=== PATIENT | female | born 1950 ===

== ENCOUNTER 2019-12-21 20:07 | Emergency (ER) | payer MEDICARE, MEDICAID, SELFPAY ==
[2019-12-21 20:47] VITALS: BP 136/60; PULSE 66; RESP 16; TEMP 36.3; O2SAT 100; BMI 30.9
[2019-12-21 21:11] LABS: Glucose Urine UA >=1000 MG/DL (NEG); Leukocyte Esterase Urine 2+ (NEG); Nitrite Urine NEG (NEG); Urine Blood 3+ (NEG); Urine Ketones NEG (NEG); Urine Protein 1+ MG/DL (NEG-TRACE)
[2019-12-21 21:12] LABS: Appearance Urine CLOUDY; Color Urine YELLOW
[2019-12-21 21:38] LABS: RBC Urine 50-75 /HPF (0)
[2019-12-21 21:39] LABS: Bacteria Urine TRACE /LPF
[2019-12-21 23:08] LABS: Basophils Percent Auto 0.5 % (0-2); Eosinophils Absolute Auto 0.1 X10*3/uL (0.0-0.4); Eosinophils Percent Auto 1.2 % (0-4); Hematocrit 31.5 % (37-47); Hemoglobin 10.2 g/dl (12.0-16.0); Imm Gran Abs Auto 0.02 X10*3/uL (0.00-0.03); Imm Gran Pct Auto 0.2 % (0.0-0.4); Lymphocytes Absolute Auto 1.5 X10*3/uL (1.2-4.9); MANUAL DIFF FLAG NO; Mean Corpuscular HGB Conc 32.4 g/dl (31.0-35.0); Mean Corpuscular Hemoglobin 29.4 pg (27.0-33.0); Mean Corpuscular Volume 90.8 fL (80-98); Mean Platelet Volume 9.2 fL (9.4-12.3); Monocytes Absolute Auto 0.6 X10*3/uL (0.1-1.2); Monocytes Percent Auto 6.9 % (2-11); Neutrophils Absolute Auto 5.9 X10*3/uL (2.0-8.3); Neutrophils Percent Auto 72.2 % (45-73); Platelet Count 330 X10*3/uL (160-400); Red Blood Count 3.47 X10*6/uL (4.20-5.50); Red Cell Distribution Width 14.1 % (11.0-16.0); White Blood Count 8.1 X10*3/uL (4.8-10.8)
--- NOTE | 2019-12-21 23:42 | ED_ITS ---
HPI - Female Genitourinary General Chief complaint: Urogenital-Female Stated complaint: VAGINAL BURNING Time Seen by Provider: 12/21/19 23:08 History of Present Illness HPI Narrative: Patient is a 69-year-old female presents today with having increasing pain on urination over the last 3-5 days. Patient denies any fever or chills. No abdominal pain. No nausea no vomiting. No coughing or congestion or upper respiratory symptoms. No diaphoresis. No chest pain. No changes in medication. Patient is from home. No vaginal discharge Related Data Previous Rx's Medication Instructions Recorded clotrimazole 1 % vaginal cream 1 appful VAGINAL BEDTIME 7 Days 12/15/19 #45 g nitrofurantoin monohyd/m-cryst 100 mg PO Q12H 7 Days #14 cap 12/21/19 [Macrobid] Allergies Allergy/AdvReac Type Severity Reaction Status Date / Time aspirin [ASPIRIN] Allergy Severe SWELLING, Verified 12/21/19 20:52 swelling, rash fish derived [FISH] Allergy Mild RASH Verified 12/21/19 20:52 fish Allergy Unknown swelling Verified 12/21/19 20:52 penicillin V Allergy Unknown swelling, Verified 12/21/19 20:52 rash Penicillins [PENICILLINS] Allergy Unknown SWELLING Verified 12/21/19 20:52 Review of Systems Review of Systems: Constitutional: No Weight loss, No Fever, No Chills, No Ni ght Sweats, No Fatigue, No Malaise ENT/Mouth: No Hearing loss, No Ear Pain, No Nasal Congestion, No Sinus Pain, No Hoarseness, No sore throat, No Rhinorrhea, No Swallowing Difficulty Eyes: No Eye Pain, No Swelling, No Redness, No Foreign Body, No Discharge, No Vision Changes Cardiovascular: No Chest Pain, No SOB, No Dyspnea on Exertion, No Orthopnea, No Edema, No Palpitations Respiratory: No Cough, No Sputum, No Wheezing, No Smoke Exposure, No Dyspnea Gastrointestinal: No Nausea, No Vomiting, No Diarrhea, No Constipation, No abdominal Pain, No Hematochezia, No Melena Genitourinary: no irregular bleeding, No Dysuria, No Urinary Frequency, No Hematuria, No Urinary Incontinence, No Urgency, No Flank Pain, No Urinary Flow Changes, No Hesitancy. positive pain on urination Musculoskeletal: No joint pain, No Myalgias, No Joint Swelling Skin: No Skin Lesions, No rash Neuro: No Weakness, No Numbness, No Paresthesias, No Loss of Consciousness, No Dizziness, No Headache Psych: No Anxiety/Panic, No Depression, No SI/HI/AH/VH, No Social Issues, Heme/Lymph: No Bruising, No Bleeding,No Lymphadenopathy Endocrine: No Polyuria, No Polydipsia, No Temperature Intolerance [facility] Past Medical History Attestation statement: The following information was validated with the patient. Medical History Diabetes Yeast infection involving the vagina and surrounding area Social History Social History Advance Directives: No Advance Directives Information Provided: No Physical Exam Vital Signs: Vital Signs: Vital Signs Temp Pulse Resp BP Pulse Ox 12/21/19 20:47 97.4 F 66 16 136/60 100 Body Mass Index 30.9 Appearance: Alert. Oriented X3. No acute distress. Eyes: Pupils equal, round and reactive to light. ENT: Pharynx normal. Neck: Normal inspection. Neck supple. No lymph nodes noted. No crepitus CVS: Normal heart rate and rhythm. Pulses normal. Normal S1 and S2 Respiratory: No respiratory distress. Breath sounds normal. No Wheezing. No rales Abdomen: Soft and nontender. No rigidity. No distention. good BS x4 Skin: Skin warm and dry. Normal skin color. Normal skin turgor. Extremities: No lower extremity edema. Neurovascular intact to all extremities. No Lacerations. No Rash Neuro: Oriented X 3. No motor deficit. No sensory deficit. Moving all extermities. No slurred speech MDM - Female Genitourinary Lab Data Result diagrams: 12/21/19 23:03 12/21/19 23:03 Labs: Lab Results 12/21/19 12/21/19 12/21/19 Range/Units 21:03 23:03 23:03 WBC 8.1 (4.8-10.8) X10*3/uL RBC 3.47 L (4.20-5.50) X10*6/uL Hgb 10.2 L (12.0-16.0) g/dl Hct 31.5 L (37-47) % MCV 90.8 (80-98) fL MCH 29.4 (27.0-33.0) pg MCHC 32.4 (31.0-35.0) g/dl RDW 14.1 (11.0-16.0) % Plt Count 330 (160-400) X10*3/uL MPV 9.2 L (9.4-12.3) fL Immature Gran % (Auto) 0.2 (0.0-0.4) % Neut % (Auto) 72.2 (45-73) % Lymph % (Auto) 19.0 L (20-40) % [place] % (Auto) 6.9 (2-11) % Eos % (Auto) 1.2 (0-4) % Baso % (Auto) 0.5 (0-2) % Lymph # (Auto) 1.5 (1.2-4.9) X10*3/uL [place] # (Auto) 0.6 (0.1-1.2) X10*3/uL Eos # (Auto) 0.1 (0.0-0.4) X10*3/uL Baso # (Auto) 0.0 (0.0-0.2) X10*3/uL Abs Immat Gran (auto) 0.02 (0.00-0.03) X10*3/uL Absolute Neuts (auto) 5.9 (2.0-8.3) X10*3/uL Absolute Nucleated RBC 0.000 (0.0-0.012) X10*3/uL Nucleated RBC % (auto) 0.0 (0.0-0.2) /100WBC Hold Blue Top SEE NOTE Sodium (135-145) mmol/L Potassium (3.3-5.1) mmol/l Chloride (96-108) mmol/L Carbon Dioxide (22-29) mmol/L Anion Gap (12-20) BUN (9-16) mg/dL Creatinine (0.5-1.4) mg/dL Estim Creat Clear Calc Estimated GFR Random Glucose (60-115) mg/dL Calcium (8.4-10.2) mg/dL Total Bilirubin (0.0-1.0) mg/dL AST (5-31) U/L ALT (0-31) U/L Alkaline Phosphatase (39-117) U/L Total Protein (6.5-8.0) g/dL Albumin (3.5-5.0) g/dL Urine Color YELLOW Urine Appearance CLOUDY Urine pH 6.0 (5.0-8.0) Ur Specific [place] 1.010 (1.005-1.025) Urine Protein 1+ H (NEG-TRACE) MG/DL Urine Glucose (UA) >=1000 H (NEG) MG/DL Urine Ketones NEG (NEG) MG/DL Urine Blood 3+ H (NEG) Urine Nitrite NEG (NEG) Ur Leukocyte Esterase 2+ H (NEG) Urine RBC 50-75 H (0) /HPF Urine WBC 15-29 H (0-4) /HPF Ur Squamous Epith Cells NONE /LPF Urine Bacteria TRACE /LPF 12/21/19 Range/Units 23:03 WBC (4.8-10.8) X10*3/uL RBC (4.20-5.50) X10*6/uL Hgb (12.0-16.0) g/dl Hct (37-47) % MCV (80-98) fL MCH (27.0-33.0) pg MCHC (31.0-35.0) g/dl RDW (11.0-16.0) % Plt Count (160-400) X10*3/uL MPV (9.4-12.3) fL Immature Gran % (Auto) (0.0-0.4) % Neut % (Auto) (45-73) % Lymph % (Auto) (20-40) % [place] % (Auto) (2-11) % Eos % (Auto) (0-4) % Baso % (Auto) (0-2) % Lymph # (Auto) (1.2-4.9) X10*3/uL [place] # (Auto) (0.1-1.2) X10*3/uL Eos # (Auto) (0.0-0.4) X10*3/uL Baso # (Auto) (0.0-0.2) X10*3/uL Abs Immat Gran (auto) (0.00-0.03) X10*3/uL Absolute Neuts (auto) (2.0-8.3) X10*3/uL Absolute Nucleated RBC (0.0-0.012) X10*3/uL Nucleated RBC % (auto) (0.0-0.2) /100WBC Hold Blue Top Sodium 132 L (135-145) mmol/L Potassium 5.2 H (3.3-5.1) mmol/l Chloride 103 (96-108) mmol/L Carbon Dioxide 21 L (22-29) mmol/L Anion Gap 13 (12-20) BUN 29 H (9-16) mg/dL Creatinine 1.41 H (0.5-1.4) mg/dL Estim Creat Clear Calc 32.7 Estimated GFR 37 Random Glucose 310 H (60-115) mg/dL Calcium 9.2 (8.4-10.2) mg/dL Total Bilirubin 0.3 (0.0-1.0) mg/dL AST 38 H (5-31) U/L ALT 42 H (0-31) U/L Alkaline Phosphatase 176 H (39-117) U/L Total Protein 7.8 (6.5-8.0) g/dL Albumin 4.0 (3.5-5.0) g/dL Urine Color Urine Appearance Urine pH (5.0-8.0) Ur Specific [place] (1.005-1.025) Urine Protein (NEG-TRACE) MG/DL Urine Glucose (UA) (NEG) MG/DL Urine Ketones (NEG) MG/DL Urine Blood (NEG) Urine Nitrite (NEG) Ur Leukocyte Esterase (NEG) Urine RBC (0) /HPF Urine WBC (0-4) /HPF Ur Squamous Epith Cells /LPF Urine Bacteria /LPF Discharge Plan Discharge Clinical Impression: Urinary tract infection Patient Disposition: Home, Self-Care Prescriptions: New nitrofurantoin monohyd/m-cryst [Macrobid] 100 mg capsule 100 mg PO Q12H 7 Days Qty: 14 RF: 0 No Action clotrimazole [Gyne-Lotrimin 7] 1 % cream 1 appful vaginal BEDTIME 7 Days Qty: 45 RF: 1 Referrals: Kimi Patino MD [Primary Care Provider] - 2 days Print Language: Serbian
[2019-12-21 23:47] LABS: Alanine Aminotransferase 42 U/L (0-31); Alkaline Phosphatase 176 U/L (39-117); Anion Gap 13 (12-20); Aspartate Amino Transferase 38 U/L (5-31); Bilirubin Total 0.3 mg/dL (0.0-1.0); Blood Urea Nitrogen 29 mg/dL (9-16); Calcium 9.2 mg/dL (8.4-10.2); Carbon Dioxide 21 mmol/L (22-29); Chloride 103 mmol/L (96-108); Creatinine Clr Calc Pharmacy 32.7; Estimated Glomerular Filt Rate 37; Glucose Random 310 mg/dL (60-115); Potassium 5.2 mmol/l (3.3-5.1); Sodium 132 mmol/L (135-145); Total Protein 7.8 g/dL (6.5-8.0)
[2019-12-22] MEDS: Nitrofurantoin Monohyd/M-Cryst 100 MG CAPSULE PO (00:14)
[2019-12-22 00:16] VITALS: BP 135/36; PULSE 77; RESP 18; TEMP 36.7; O2SAT 100
== END 2019-12-22 00:21 | disposition home or self-care (01) ==
PROVIDERS: Emergency Provider Emergency Medicine Emergency Medical Services; PCP Internal Medicine
DX: N39.0 Urinary tract infection, site not specified (principal); E11.9 Type 2 diabetes mellitus without complications
CPT/HCPCS: 36415; 80053; 81001; 85025; 87086; 99283; 99284

== ENCOUNTER → 2020-01-21 14:44 | Outpatient (BNVA) | payer MEDICARE, MEDICAID, SELFPAY | PROVIDERS: PCP Internal Medicine; Referring Provider Internal Medicine; Visit Provider Urology | DX: N39.0 Urinary tract infection, site not specified (principal); R39.14 Feeling of incomplete bladder emptying | CPT/HCPCS: Q3014 ==

== ENCOUNTER 2020-02-04 10:38 | Emergency (ER) | payer MEDICARE, MEDICAID, SELFPAY ==
[2020-02-04 11:41] VITALS: BP 143/68; PULSE 120; RESP 18; TEMP 37.4; O2SAT 97; BMI 29.2
--- NOTE | 2020-02-04 11:56 | ECG_ITS ---
Test Reason : SEPSIS Blood Pressure : / mmHG Vent. Rate : 114 BPM Atrial Rate : 114 BPM P-R Int : 156 ms QRS Dur : 072 ms QT Int : 306 ms P-R-T Axes : 023 019 031 degrees QTc Int : 421 ms Sinus tachycardia Cannot rule out Anterior infarct (cited on or before 20-APR-2017) Abnormal ECG When compared with ECG of 10-SEP-2019 12:08, Criteria for Inferior infarct are no longer Present Referred By: Klarissa Greene Electronically Signed By:LUC GARCIA MD
--- NOTE | 2020-02-04 11:57 | XR_ITS ---
EXAMINATION: XR CHEST CLINICAL INFORMATION: Fever. COMPARISON: Chest 09/10/2019 TECHNIQUE: Frontal view of the chest was obtained. FINDINGS: The lungs are hyperexpanded but clear of acute process. The heart size and pulmonary vascularity is normal. No gross bony abnormality seen. XR/XR chest 1V IMPRESSION: Unremarkable chest exam.
--- NOTE | 2020-02-04 12:44 | ED_ITS ---
HPI - General Adult General Chief complaint: General Medical <SANJANA Enriquez - Last Filed: 02/04/20 17:18> Stated complaint: CHILLS,FEVER,BODYACHES <SANJANA Enriquez - Last Filed: 02/04/20 17:18> Time Seen by Provider: 02/04/20 10:59 <SANJANA Enriquez - Last Filed: 02/04/20 17:18> Source: patient and family <SANJANA Enriquez Last Filed: 02/04/20 17:18> Mode of arrival: ambulatory <SANJANA Enriquez - Last Filed: 02/04/20 17:18> History of Present Illness HPI narrative: 69-year-old female with a past medical history of CVA on Plavix, diabetes, vitamin-B deficiency, HTN, hyperlipidemia, hypothyroid, renal tubular acidosis, brought to ED by daughter for fever, increased confusion, and urinary frequency since yesterday. Daughter reports similar symptoms in the past with UTIs. Denies recent falls/head trauma. Patient reports mild headache, otherwise has no complaints. Denies CP/SOB, abdominal pain, nausea/vomiting, exposure to COVID-19, cough <SANJANA Enriquez Last Filed: 02/04/20 17:18> Onset (ago): day(s) <SANJANA Enriquez Last Filed: 02/04/20 17:18> Related Data Home medications: Home Medications Medication Instructions Recorded Confirmed atorvastatin 40 mg tablet 40 mg PO DAILY 01/13/20 02/22/20 dulaglutide 0.75 mg/0.5 mL 0.75 mg SUBCUT QWEEK 01/13/20 02/22/20 subcutaneous pen injector famotidine 20 mg tablet 20 mg PO BEDTIME 01/13/20 02/22/20 furosemide 20 mg tablet 10 mg PO DAILY tab 01/13/20 02/22/20 insulin aspart U-100 100 unit/mL 15 unit SUBCUT TID 01/13/20 02/22/20 (3 mL) subcutaneous pen insulin degludec 100 unit/mL (3 30 unit SUBCUT DAILY ml 01/13/20 02/22/20 mL) subcutaneous pen levothyroxine 100 mcg tablet 100 mcg PO DAILY 01/13/20 02/22/20 metoprolol succinate 25 mg 12.5 mg PO BID 01/13/20 02/22/20 tablet,extended release 24 hr insulin asp prt-insulin aspart 70 unit SUBCUT TIDAC 02/05/20 02/22/20 [Novolog Mix 70-30FlexPen U-100] Previous Rx's Medication Instructions Recorded clotrimazole 1 % vaginal cream 1 appful VAGINAL BEDTIME 7 Days 12/15/19 #45 g pen needle, diabetic 32 gauge x #60 ea 12/27/19 omeprazole 20 mg capsule,delayed 20 mg PO QAM #90 cap 01/10/20 release clopidogrel 75 mg tablet 75 mg PO DAILY 90 Days #90 tab 01/11/20 cholecalciferol (vitamin D3) 50 50 mcg PO DAILY 30 Days #30 cap 01/31/20 mcg (2,000 unit) capsule insulin aspar prot-insulin aspart 30 unit SUBCUT BID 30 Days #30 ml 01/31/20 100 unit/mL (70-30) subcutaneous pen cyanocobalamin (vitamin B-12) 1,000 mcg PO DAILY #90 tab 02/22/20 [Vitamin B-12] <SANJANA Enriquez - Last Filed: 02/04/20 17:18> Allergies/adverse reactions: Allergies Allergy/AdvReac Type Severity Reaction Status Date / Time aspirin [ASPIRIN] Allergy Severe SWELLING, Verified 02/05/20 15:09 swelling, rash fish derived [FISH] Allergy Mild RASH Verified 02/05/20 15:09 fish Allergy Unknown swelling Verified 02/05/20 15:09 penicillin V Allergy Unknown swelling, Verified 02/05/20 15:09 rash Penicillins [PENICILLINS] Allergy Unknown SWELLING Verified 02/05/20 15:09 <SANJANA Enriquez - Last Filed: 02/04/20 17:18> Review of Systems Review of Systems: Constitutional: No Weight loss, + Fever, No Chills, No Night Sweats, No Fatigue, No Malaise Eyes: No Eye Pain, No Swelling, No Redness, No Foreign Body, No Discharge, No Vision Changes Cardiovascular: No Chest Pain, No SOB, No Dyspnea on Exertion Respiratory: No Cough, No Sputum, No Wheezing Gastrointestinal: No Nausea, No Vomiting, No Diarrhea, No Constipation, No Abdominal pain Genitourinary: No irregular bleeding, No Dysuria, No Urinary Frequency, No Hematuria,+Urgency, + Urinary Flow Change Skin: No Skin Lesions, No rash Neuro: +confusion, + Headache <SANJANA Enriquez - Last Filed: 02/04/20 17:18> Yes all other systems are reviewed and are negative <SANJANA Enriquez - Last Filed: 02/04/20 17:18> [facility] Past Medical History Attestation statement: The following information was validated with the patient. <SANJANA Enriquez - Last Filed: 02/04/20 17:18> Medical History: Medical History (Updated 02/22/20 @ 14:56 by Miriam Pascual MD) Bacteremia CVA (cerebral vascular accident) Diabetes Diabetes type 2, uncontrolled Diabetic neuropathy History of non anemic vitamin B12 deficiency History of uterine fibroid HTN (hypertension) Hyperlipemia Hypothyroidism Iron deficiency anemia Renal tubular acidosis Vitamin D deficiency Yeast infection involving the vagina and surrounding area <SANJANA Enriquez - Last Filed: 02/04/20 17:18> Surgical History: Surgical History (Updated 02/22/20 @ 14:56 by Miriam Pascual MD) H/O carotid endarterectomy History of cataract surgery History of hysterectomy <SANJANA Enriquez - Last Filed: 02/04/20 17:18> Family History Family History: Family History (Updated 02/05/20 @ 18:50 by Caity Miranda NP) Maternal Grandmother Pancreatic cancer <SANJANA Enriquez - Last Filed: 02/04/20 17:18> Social History Social History: Social History Household Members: Spouse Housing: Apartment Alcohol intake: never Smoking Status: Never smoker Second Hand Smoke Exposure: No service: No Current occupational status: unemployed <SANJANA Enriquez - Last Filed: 02/04/20 17:18> Physical Exam Vital Signs: Vital Signs: Last Vital Signs Temp 99.6 F 02/04/20 21:12 Pulse 108 H 02/04/20 21:12 Resp 18 02/04/20 21:12 BP 127/59 L 02/04/20 21:12 Pulse Ox 99 02/04/20 21:12 Body Mass Index 29.2 <SANJANA Enriquez - Last Filed: 02/04/20 17:18> Vital Signs: Last Vital Signs Temp 99.6 F 02/04/20 21:12 Pulse 108 H 02/04/20 21:12 Resp 18 02/04/20 21:12 BP 127/59 L 02/04/20 21:12 Pulse Ox 99 02/04/20 21:12 Body Mass Index 29.2 <Christiano Parrish NP - Last Filed: 02/04/20 20:40> Vital Signs: Last Vital Signs Temp 99.6 F 02/04/20 21:12 Pulse 108 H 02/04/20 21:12 Resp 18 02/04/20 21:12 BP 127/59 L 02/04/20 21:12 Pulse Ox 99 02/04/20 21:12 Body Mass Index 29.2 <SANJANA Parks - Last Filed: 02/05/20 12:56> Vital Signs: Last Vital Signs Temp 99.6 F 02/04/20 21:12 Pulse 108 H 02/04/20 21:12 Resp 18 02/04/20 21:12 BP 127/59 L 02/04/20 21:12 Pulse Ox 99 02/04/20 21:12 Body Mass Index 29.2 <Levy Hunter MD - Last Filed: 02/25/20 10:02> Const: Other: valerie, pacing around room <SANJANA Enriquez - Last Filed: 02/04/20 17:18> Orientation/consciousness: patient oriented x3 <SANJANA Enriquez - Last Filed: 02/04/20 17:18> Limitations: no limitations <SANJANA Enriquez - Last Filed: 02/04/20 17:18> HENMT: Head: Yes normal to inspection <SANJANA Enriquez - Last Filed: 02/04/20 17:18> Ears: hearing grossly normal bilaterally <SAJNANA Enriquez - Last Filed: 02/04/20 17:18> General nose exam: Normal external nose present <SANJANA Enriquez - Last Filed: 02/04/20 17:18> Face and sinus: Yes normal facial exam <SANJANA Enriquez - Last Filed: 02/04/20 17:18> Eyes: General: appearance normal, both eyes and all related structures <SANJANA Enriquez - Last Filed: 02/04/20 17:18> EOM: EOMs intact bilaterally <Klarissapedro Greene IN - Last Filed: 02/04/20 17:18> Neck: Neck: Yes normal visual inspection and Yes no meningeal signs <Klarissa Greene IN - Last Filed: 02/04/20 17:18> Resp: Effort & Inspection: normal respiratory effort <Klarissa Greene IN - Last Filed: 02/04/20 17:18> Auscultation: clear to auscultation bilaterally, no crackles and no wheezes <Klarissa Greene IN - Last Filed: 02/04/20 17:18> Cardio: Rate: regular rate <Klarissa Greene IN - Last Filed: 02/04/20 17:18> Heart sounds: S1 normal heart sound present and S2 normal heart sound present <Klarissa Greene IN - Last Filed: 02/04/20 17:18> GI: Inspection: Yes normal to inspection <Klarissa Greene IN - Last Filed: 02/04/20 17:18> Palpation (GI): Soft to palpation, nontender, no guarding and not rigid <Klarissa Greene IN - Last Filed: 02/04/20 17:18> Skin: Rashes: no rashes <Klarissa Greene IN - Last Filed: 02/04/20 17:18> Wounds: no wounds <Klarissa Greene IN - Last Filed: 02/04/20 17:18> Neuro: General: patient oriented x3, gait normal, tone normal, moves all extremities, no meningeal signs and no focal motor deficits <Klarissa Greene IN - Last Filed: 02/04/20 17:18> Gait exam (Neuro): Normal gait present <Klarissa Greene IN - Last Filed: 02/04/20 17:18> Extrem: General: Yes normal to inspection <Klarissa Greene IN - Last Filed: 02/04/20 17:18> Course Course Course Narrative: -mild leukocytosis of 11.7, H&H at baseline -glucose 682, sodium 127 >corrected for hyperglycemia is 141 -BUN/Cr elevated more than baseline, lactic acid 2.4, and tachycardia >all likely secondary to hyperglycemia/dehydration rather than severe sepsis > no anion gap -UA with WBC's (chronically), contaminated sample > IV ceftriaxone will cover > but will obtain repeat -CXR unremarkable -1640-- repeat fingerstick 446 after 2L IVF >> 10 units IV insulin ordered -1700--ED care transferred to CABLE ENGINEER Christiano pending repeat glucose, repeat UA, repeat lactic, and repeat BMP > if all improved patient is safe to be discharged home, dispo per results <SANJANA Enriquez - Last Filed: 02/04/20 17:18> I have reviewed the chart <Levy Hunter MD - Last Filed: 02/25/20 10:02> Medical Decision Making MDM Narrative Medical decision making narrative: 69-year-old female with a past medical history of CVA on Plavix, diabetes, vitamin-B deficiency, HTN, hyperlipidemia, hypothyroid, renal tubular acidosis, brought to ED by daughter for fever, increased confusion, and urinary frequency since yesterday. On exam, tachycardic, low-grade temp 99.3?, NAD, pacing around room, requesting to leave, nontoxic appearing. Concern for UTI vs viral syndrome/COVID-19 vs other metabolic/infectious etiology Due to tachycardia/reported confusion>> blood cultures, lactate, IVF, empiric IV ceftriaxone ordered Plan: EKG, labs, UA, CXR, reassess <SANJANA Enriquez - Last Filed: 02/04/20 17:18> Lab Data Result diagrams: : 02/04/20 12:53 02/04/20 19:57 <SANJANA Enriquez - Last Filed: 02/04/20 17:18> Labs: Lab Results 02/04/20 02/04/20 02/04/20 Range/Units 12:53 12:53 12:53 WBC 11.7 H (4.8-10.8) X10*3/uL RBC 3.52 L (4.20-5.50) X10*6/uL Hgb 10.3 L (12.0-16.0) g/dl Hct 31.2 L (37-47) % MCV 88.6 (80-98) fL MCH 29.3 (27.0-33.0) pg MCHC 33.0 (31.0-35.0) g/dl RDW 12.6 (11.0-16.0) % Plt Count 277 (160-400) X10*3/uL MPV 10.3 (9.4-12.3) fL Immature Gran % (Auto) 0.4 (0.0-0.4) % Neut % (Auto) 87.5 H (45-73) % Lymph % (Auto) 4.9 L (20-40) % Sutter % (Auto) 6.9 (2-11) % Eos % (Auto) 0.1 (0-4) % Baso % (Auto) 0.2 (0-2) % Lymph # (Auto) 0.6 L (1.2-4.9) X10*3/uL Sutter # (Auto) 0.8 (0.1-1.2) X10*3/uL Eos # (Auto) 0.0 (0.0-0.4) X10*3/uL Baso # (Auto) 0.0 (0.0-0.2) X10*3/uL Abs Immat Gran (auto) 0.05 H (0.00-0.03) X10*3/uL Absolute Neuts (auto) 10.3 H (2.0-8.3) X10*3/uL Absolute Nucleated RBC 0.000 (0.0-0.012) X10*3/uL Nucleated RBC % (auto) 0.0 (0.0-0.2) /100WBC Smear Tech's Comments VERIFIED Hold Blue Top Sodium 127 L (135-145) mmol/L Potassium 4.6 (3.3-5.1) mmol/l Chloride 96 (96-108) mmol/L Carbon Dioxide 20 L (22-29) mmol/L Anion Gap 16 (12-20) BUN 37 H (9-16) mg/dL Creatinine 2.02 H (0.5-1.4) mg/dL Estim Creat Clear Calc 23.2 Estimated GFR 25 POC Glucose (60-115) mg/dL Random Glucose 682 H* (60-115) mg/dL Lactic Acid 2.4 H* (0.5-2.0) mmol/L Lactic Acid Fup @ 2Hr (0.5-2.0) mmol/L Calcium 8.9 (8.4-10.2) mg/dL Magnesium 1.8 (1.6-2.6) mg/dL Total Bilirubin 0.5 (0.0-1.0) mg/dL Direct Bilirubin 0.2 (0.0-0.5) mg/dL AST 28 (5-31) U/L ALT 31 (0-31) U/L Alkaline Phosphatase 189 H (39-117) U/L Total Protein 7.9 (6.5-8.0) g/dL Albumin 4.0 (3.5-5.0) g/dL Urine Color Urine Appearance Urine pH (5.0-8.0) Ur Specific [place] (1.005-1.025) Urine Protein (NEG-TRACE) MG/DL Urine Glucose (UA) (NEG) MG/DL Urine Ketones (NEG) MG/DL Urine Blood (NEG) Urine Nitrite (NEG) Ur Leukocyte Esterase (NEG) Urine RBC (0) /HPF Urine WBC (0-4) /HPF Urine WBC Clumps Ur Squamous Epith Cells /LPF Urine Bacteria /LPF Acetone, Qual (Negative) Coronavirus (PCR) (Negative) Influenza Type A (PCR) (Negative) Influenza Type B (PCR) (Negative) RSV RNA Qual (PCR) (Negative) 02/04/20 02/04/20 02/04/20 Range/Units 12:53 12:53 12:53 WBC (4.8-10.8) X10*3/uL RBC (4.20-5.50) X10*6/uL Hgb (12.0-16.0) g/dl Hct (37-47) % MCV (80-98) fL MCH (27.0-33.0) pg MCHC (31.0-35.0) g/dl RDW (11.0-16.0) % Plt Count (160-400) X10*3/uL MPV (9.4-12.3) fL Immature Gran % (Auto) (0.0-0.4) % Neut % (Auto) (45-73) % Lymph % (Auto) (20-40) % Sutter % (Auto) (2-11) % Eos % (Auto) (0-4) % Baso % (Auto) (0-2) % Lymph # (Auto) (1.2-4.9) X10*3/uL Sutter # (Auto) (0.1-1.2) X10*3/uL Eos # (Auto) (0.0-0.4) X10*3/uL Baso # (Auto) (0.0-0.2) X10*3/uL Abs Immat Gran (auto) (0.00-0.03) X10*3/uL Absolute Neuts (auto) (2.0-8.3) X10*3/uL Absolute Nucleated RBC (0.0-0.012) X10*3/uL Nucleated RBC % (auto) (0.0-0.2) /100WBC Smear Tech's Comments Hold Blue Top SEE NOTE Sodium (135-145) mmol/L Potassium (3.3-5.1) mmol/l Chloride (96-108) mmol/L Carbon Dioxide (22-29) mmol/L Anion Gap (12-20) BUN (9-16) mg/dL Creatinine (0.5-1.4) mg/dL Estim Creat Clear Calc Estimated GFR POC Glucose (60-115) mg/dL Random Glucose (60-115) mg/dL Lactic Acid (0.5-2.0) mmol/L Lactic Acid Fup @ 2Hr (0.5-2.0) mmol/L Calcium (8.4-10.2) mg/dL Magnesium (1.6-2.6) mg/dL Total Bilirubin (0.0-1.0) mg/dL Direct Bilirubin (0.0-0.5) mg/dL AST (5-31) U/L ALT (0-31) U/L Alkaline Phosphatase (39-117) U/L Total Protein (6.5-8.0) g/dL Albumin (3.5-5.0) g/dL Urine Color STRAW Urine Appearance HAZY Urine pH 5.5 (5.0-8.0) Ur Specific [place] 1.010 (1.005-1.025) Urine Protein NEG (NEG-TRACE) MG/DL Urine Glucose (UA) >=1000 H (NEG) MG/DL Urine Ketones NEG (NEG) MG/DL Urine Blood 3+ H (NEG) Urine Nitrite NEG (NEG) Ur Leukocyte Esterase NEG (NEG) Urine RBC 30-49 H (0) /HPF Urine WBC 50-75 H (0-4) /HPF Urine WBC Clumps NOTED Ur Squamous Epith Cells 1+ /LPF Urine Bacteria 1+ /LPF Acetone, Qual Negative (Negative) Coronavirus (PCR) (Negative) Influenza Type A (PCR) (Negative) Influenza Type B (PCR) (Negative) RSV RNA Qual (PCR) (Negative) 02/04/20 02/04/20 02/04/20 Range/Units 15:52 16:24 16:29 WBC (4.8-10.8) X10*3/uL RBC (4.20-5.50) X10*6/uL Hgb (12.0-16.0) g/dl Hct (37-47) % MCV (80-98) fL MCH (27.0-33.0) pg MCHC (31.0-35.0) g/dl RDW (11.0-16.0) % Plt Count (160-400) X10*3/uL MPV (9.4-12.3) fL Immature Gran % (Auto) (0.0-0.4) % Neut % (Auto) (45-73) % Lymph % (Auto) (20-40) % Sutter % (Auto) (2-11) % Eos % (Auto) (0-4) % Baso % (Auto) (0-2) % Lymph # (Auto) (1.2-4.9) X10*3/uL [place] # (Auto) (0.1-1.2) X10*3/uL Eos # (Auto) (0.0-0.4) X10*3/uL Baso # (Auto) (0.0-0.2) X10*3/uL Abs Immat Gran (auto) (0.00-0.03) X10*3/uL Absolute Neuts (auto) (2.0-8.3) X10*3/uL Absolute Nucleated RBC (0.0-0.012) X10*3/uL Nucleated RBC % (auto) (0.0-0.2) /100WBC Smear Tech's Comments Hold Blue Top Sodium (135-145) mmol/L Potassium (3.3-5.1) mmol/l Chloride (96-108) mmol/L Carbon Dioxide (22-29) mmol/L Anion Gap (12-20) BUN (9-16) mg/dL Creatinine (0.5-1.4) mg/dL Estim Creat Clear Calc Estimated GFR POC Glucose 446 H* (60-115) mg/dL Random Glucose (60-115) mg/dL Lactic Acid (0.5-2.0) mmol/L Lactic Acid Fup @ 2Hr (0.5-2.0) mmol/L Calcium (8.4-10.2) mg/dL Magnesium (1.6-2.6) mg/dL Total Bilirubin (0.0-1.0) mg/dL Direct Bilirubin (0.0-0.5) mg/dL AST (5-31) U/L ALT (0-31) U/L Alkaline Phosphatase (39-117) U/L Total Protein (6.5-8.0) g/dL Albumin (3.5-5.0) g/dL Urine Color Cancelled Urine Appearance Cancelled Urine pH Cancelled (5.0-8.0) Ur Specific [place] Cancelled (1.005-1.025) Urine Protein Cancelled (NEG-TRACE) MG/DL Urine Glucose (UA) Cancelled (NEG) MG/DL Urine Ketones Cancelled (NEG) MG/DL Urine Blood Cancelled (NEG) Urine Nitrite Cancelled (NEG) Ur Leukocyte Esterase Cancelled (NEG) Urine RBC (0) /HPF Urine WBC (0-4) /HPF Urine WBC Clumps Ur Squamous Epith Cells /LPF Urine Bacteria /LPF Acetone, Qual (Negative) Coronavirus (PCR) NEGATIVE (Negative) Influenza Type A (PCR) NEGATIVE (Negative) Influenza Type B (PCR) NEGATIVE (Negative) RSV RNA Qual (PCR) NEGATIVE (Negative) 02/04/20 02/04/20 02/04/20 Range/Units 16:58 17:44 19:57 WBC (4.8-10.8) X10*3/uL RBC (4.20-5.50) X10*6/uL Hgb (12.0-16.0) g/dl Hct (37-47) % MCV (80-98) fL MCH (27.0-33.0) pg MCHC (31.0-35.0) g/dl RDW (11.0-16.0) % Plt Count (160-400) X10*3/uL MPV (9.4-12.3) fL Immature Gran % (Auto) (0.0-0.4) % Neut % (Auto) (45-73) % Lymph % (Auto) (20-40) % [place] % (Auto) (2-11) % Eos % (Auto) (0-4) % Baso % (Auto) (0-2) % Lymph # (Auto) (1.2-4.9) X10*3/uL [place] # (Auto) (0.1-1.2) X10*3/uL Eos # (Auto) (0.0-0.4) X10*3/uL Baso # (Auto) (0.0-0.2) X10*3/uL Abs Immat Gran (auto) (0.00-0.03) X10*3/uL Absolute Neuts (auto) (2.0-8.3) X10*3/uL Absolute Nucleated RBC (0.0-0.012) X10*3/uL Nucleated RBC % (auto) (0.0-0.2) /100WBC Smear Tech's Comments Hold Blue Top Sodium 137 (135-145) mmol/L Potassium 4.3 (3.3-5.1) mmol/l Chloride 104 (96-108) mmol/L Carbon Dioxide 20 L (22-29) mmol/L Anion Gap 17 (12-20) BUN 33 H (9-16) mg/dL Creatinine 1.72 H (0.5-1.4) mg/dL Estim Creat Clear Calc 27.3 Estimated GFR 30 POC Glucose 306 H (60-115) mg/dL Random Glucose 273 H D (60-115) mg/dL Lactic Acid (0.5-2.0) mmol/L Lactic Acid Fup @ 2Hr 1.4 (0.5-2.0) mmol/L Calcium 8.8 (8.4-10.2) mg/dL Magnesium (1.6-2.6) mg/dL Total Bilirubin (0.0-1.0) mg/dL Direct Bilirubin (0.0-0.5) mg/dL AST (5-31) U/L ALT (0-31) U/L Alkaline Phosphatase (39-117) U/L Total Protein (6.5-8.0) g/dL Albumin (3.5-5.0) g/dL Urine Color Urine Appearance Urine pH (5.0-8.0) Ur Specific [place] (1.005-1.025) Urine Protein (NEG-TRACE) MG/DL Urine Glucose (UA) (NEG) MG/DL Urine Ketones (NEG) MG/DL Urine Blood (NEG) Urine Nitrite (NEG) Ur Leukocyte Esterase (NEG) Urine RBC (0) /HPF Urine WBC (0-4) /HPF Urine WBC Clumps Ur Squamous Epith Cells /LPF Urine Bacteria /LPF Acetone, Qual (Negative) Coronavirus (PCR) (Negative) Influenza Type A (PCR) (Negative) Influenza Type B (PCR) (Negative) RSV RNA Qual (PCR) (Negative) <SANJANA Enriquez - Last Filed: 02/04/20 17:18> Lab Results 02/04/20 02/04/20 02/04/20 Range/Units 12:53 12:53 12:53 WBC 11.7 H (4.8-10.8) X10*3/uL RBC 3.52 L (4.20-5.50) X10*6/uL Hgb 10.3 L (12.0-16.0) g/dl Hct 31.2 L (37-47) % MCV 88.6 (80-98) fL MCH 29.3 (27.0-33.0) pg MCHC 33.0 (31.0-35.0) g/dl RDW 12.6 (11.0-16.0) % Plt Count 277 (160-400) X10*3/uL MPV 10.3 (9.4-12.3) fL Immature Gran % (Auto) 0.4 (0.0-0.4) % Neut % (Auto) 87.5 H (45-73) % Lymph % (Auto) 4.9 L (20-40) % Sutter % (Auto) 6.9 (2-11) % Eos % (Auto) 0.1 (0-4) % Baso % (Auto) 0.2 (0-2) % Lymph # (Auto) 0.6 L (1.2-4.9) X10*3/uL [place] # (Auto) 0.8 (0.1-1.2) X10*3/uL Eos # (Auto) 0.0 (0.0-0.4) X10*3/uL Baso # (Auto) 0.0 (0.0-0.2) X10*3/uL Abs Immat Gran (auto) 0.05 H (0.00-0.03) X10*3/uL Absolute Neuts (auto) 10.3 H (2.0-8.3) X10*3/uL Absolute Nucleated RBC 0.000 (0.0-0.012) X10*3/uL Nucleated RBC % (auto) 0.0 (0.0-0.2) /100WBC Smear Tech's Comments VERIFIED Hold Blue Top Sodium 127 L (135-145) mmol/L Potassium 4.6 (3.3-5.1) mmol/l Chloride 96 (96-108) mmol/L Carbon Dioxide 20 L (22-29) mmol/L Anion Gap 16 (12-20) BUN 37 H (9-16) mg/dL Creatinine 2.02 H (0.5-1.4) mg/dL Estim Creat Clear Calc 23.2 Estimated GFR 25 POC Glucose (60-115) mg/dL Random Glucose 682 H* (60-115) mg/dL Lactic Acid 2.4 H* (0.5-2.0) mmol/L Lactic Acid Fup @ 2Hr (0.5-2.0) mmol/L Calcium 8.9 (8.4-10.2) mg/dL Magnesium 1.8 (1.6-2.6) mg/dL Total Bilirubin 0.5 (0.0-1.0) mg/dL Direct Bilirubin 0.2 (0.0-0.5) mg/dL AST 28 (5-31) U/L ALT 31 (0-31) U/L Alkaline Phosphatase 189 H (39-117) U/L Total Protein 7.9 (6.5-8.0) g/dL Albumin 4.0 (3.5-5.0) g/dL Urine Color Urine Appearance Urine pH (5.0-8.0) Ur Specific [place] (1.005-1.025) Urine Protein (NEG-TRACE) MG/DL Urine Glucose (UA) (NEG) MG/DL Urine Ketones (NEG) MG/DL Urine Blood (NEG) Urine Nitrite (NEG) Ur Leukocyte Esterase (NEG) Urine RBC (0) /HPF Urine WBC (0-4) /HPF Urine WBC Clumps Ur Squamous Epith Cells /LPF Urine Bacteria /LPF Acetone, Qual (Negative) Coronavirus (PCR) (Negative) Influenza Type A (PCR) (Negative) Influenza Type B (PCR) (Negative) RSV RNA Qual (PCR) (Negative) 02/04/20 02/04/20 02/04/20 Range/Units 12:53 12:53 12:53 WBC (4.8-10.8) X10*3/uL RBC (4.20-5.50) X10*6/uL Hgb (12.0-16.0) g/dl Hct (37-47) % MCV (80-98) fL MCH (27.0-33.0) pg MCHC (31.0-35.0) g/dl RDW (11.0-16.0) % Plt Count (160-400) X10*3/uL MPV (9.4-12.3) fL Immature Gran % (Auto) (0.0-0.4) % Neut % (Auto) (45-73) % Lymph % (Auto) (20-40) % [place] % (Auto) (2-11) % Eos % (Auto) (0-4) % Baso % (Auto) (0-2) % Lymph # (Auto) (1.2-4.9) X10*3/uL [place] # (Auto) (0.1-1.2) X10*3/uL Eos # (Auto) (0.0-0.4) X10*3/uL Baso # (Auto) (0.0-0.2) X10*3/uL Abs Immat Gran (auto) (0.00-0.03) X10*3/uL Absolute Neuts (auto) (2.0-8.3) X10*3/uL Absolute Nucleated RBC (0.0-0.012) X10*3/uL Nucleated RBC % (auto) (0.0-0.2) /100WBC Smear Tech's Comments Hold Blue Top SEE NOTE Sodium (135-145) mmol/L Potassium (3.3-5.1) mmol/l Chloride (96-108) mmol/L Carbon Dioxide (22-29) mmol/L Anion Gap (12-20) BUN (9-16) mg/dL Creatinine (0.5-1.4) mg/dL Estim Creat Clear Calc Estimated GFR POC Glucose (60-115) mg/dL Random Glucose (60-115) mg/dL Lactic Acid (0.5-2.0) mmol/L Lactic Acid Fup @ 2Hr (0.5-2.0) mmol/L Calcium (8.4-10.2) mg/dL Magnesium (1.6-2.6) mg/dL Total Bilirubin (0.0-1.0) mg/dL Direct Bilirubin (0.0-0.5) mg/dL AST (5-31) U/L ALT (0-31) U/L Alkaline Phosphatase (39-117) U/L Total Protein (6.5-8.0) g/dL Albumin (3.5-5.0) g/dL Urine Color STRAW Urine Appearance HAZY Urine pH 5.5 (5.0-8.0) Ur Specific [place] 1.010 (1.005-1.025) Urine Protein NEG (NEG-TRACE) MG/DL Urine Glucose (UA) >=1000 H (NEG) MG/DL Urine Ketones NEG (NEG) MG/DL Urine Blood 3+ H (NEG) Urine Nitrite NEG (NEG) Ur Leukocyte Esterase NEG (NEG) Urine RBC 30-49 H (0) /HPF Urine WBC 50-75 H (0-4) /HPF Urine WBC Clumps NOTED Ur Squamous Epith Cells 1+ /LPF Urine Bacteria 1+ /LPF Acetone, Qual Negative (Negative) Coronavirus (PCR) (Negative) Influenza Type A (PCR) (Negative) Influenza Type B (PCR) (Negative) RSV RNA Qual (PCR) (Negative) 02/04/20 02/04/20 02/04/20 Range/Units 15:52 16:24 16:29 WBC (4.8-10.8) X10*3/uL RBC (4.20-5.50) X10*6/uL Hgb (12.0-16.0) g/dl Hct (37-47) % MCV (80-98) fL MCH (27.0-33.0) pg MCHC (31.0-35.0) g/dl RDW (11.0-16.0) % Plt Count (160-400) X10*3/uL MPV (9.4-12.3) fL Immature Gran % (Auto) (0.0-0.4) % Neut % (Auto) (45-73) % Lymph % (Auto) (20-40) % Sutter % (Auto) (2-11) % Eos % (Auto) (0-4) % Baso % (Auto) (0-2) % Lymph # (Auto) (1.2-4.9) X10*3/uL Sutter # (Auto) (0.1-1.2) X10*3/uL Eos # (Auto) (0.0-0.4) X10*3/uL Baso # (Auto) (0.0-0.2) X10*3/uL Abs Immat Gran (auto) (0.00-0.03) X10*3/uL Absolute Neuts (auto) (2.0-8.3) X10*3/uL Absolute Nucleated RBC (0.0-0.012) X10*3/uL Nucleated RBC % (auto) (0.0-0.2) /100WBC Smear Tech's Comments Hold Blue Top Sodium (135-145) mmol/L Potassium (3.3-5.1) mmol/l Chloride (96-108) mmol/L Carbon Dioxide (22-29) mmol/L Anion Gap (12-20) BUN (9-16) mg/dL Creatinine (0.5-1.4) mg/dL Estim Creat Clear Calc Estimated GFR POC Glucose 446 H* (60-115) mg/dL Random Glucose (60-115) mg/dL Lactic Acid (0.5-2.0) mmol/L Lactic Acid Fup @ 2Hr (0.5-2.0) mmol/L Calcium (8.4-10.2) mg/dL Magnesium (1.6-2.6) mg/dL Total Bilirubin (0.0-1.0) mg/dL Direct Bilirubin (0.0-0.5) mg/dL AST (5-31) U/L ALT (0-31) U/L Alkaline Phosphatase (39-117) U/L Total Protein (6.5-8.0) g/dL Albumin (3.5-5.0) g/dL Urine Color Cancelled Urine Appearance Cancelled Urine pH Cancelled (5.0-8.0) Ur Specific [place] Cancelled (1.005-1.025) Urine Protein Cancelled (NEG-TRACE) MG/DL Urine Glucose (UA) Cancelled (NEG) MG/DL Urine Ketones Cancelled (NEG) MG/DL Urine Blood Cancelled (NEG) Urine Nitrite Cancelled (NEG) Ur Leukocyte Esterase Cancelled (NEG) Urine RBC (0) /HPF Urine WBC (0-4) /HPF Urine WBC Clumps Ur Squamous Epith Cells /LPF Urine Bacteria /LPF Acetone, Qual (Negative) Coronavirus (PCR) NEGATIVE (Negative) Influenza Type A (PCR) NEGATIVE (Negative) Influenza Type B (PCR) NEGATIVE (Negative) RSV RNA Qual (PCR) NEGATIVE (Negative) 02/04/20 02/04/20 02/04/20 Range/Units 16:58 17:44 19:57 WBC (4.8-10.8) X10*3/uL RBC (4.20-5.50) X10*6/uL Hgb (12.0-16.0) g/dl Hct (37-47) % MCV (80-98) fL MCH (27.0-33.0) pg MCHC (31.0-35.0) g/dl RDW (11.0-16.0) % Plt Count (160-400) X10*3/uL MPV (9.4-12.3) fL Immature Gran % (Auto) (0.0-0.4) % Neut % (Auto) (45-73) % Lymph % (Auto) (20-40) % Sutter % (Auto) (2-11) % Eos % (Auto) (0-4) % Baso % (Auto) (0-2) % Lymph # (Auto) (1.2-4.9) X10*3/uL Sutter # (Auto) (0.1-1.2) X10*3/uL Eos # (Auto) (0.0-0.4) X10*3/uL Baso # (Auto) (0.0-0.2) X10*3/uL Abs Immat Gran (auto) (0.00-0.03) X10*3/uL Absolute Neuts (auto) (2.0-8.3) X10*3/uL Absolute Nucleated RBC (0.0-0.012) X10*3/uL Nucleated RBC % (auto) (0.0-0.2) /100WBC Smear Tech's Comments Hold Blue Top Sodium 137 (135-145) mmol/L Potassium 4.3 (3.3-5.1) mmol/l Chloride 104 (96-108) mmol/L Carbon Dioxide 20 L (22-29) mmol/L Anion Gap 17 (12-20) BUN 33 H (9-16) mg/dL Creatinine 1.72 H (0.5-1.4) mg/dL Estim Creat Clear Calc 27.3 Estimated GFR 30 POC Glucose 306 H (60-115) mg/dL Random Glucose 273 H D (60-115) mg/dL Lactic Acid (0.5-2.0) mmol/L Lactic Acid Fup @ 2Hr 1.4 (0.5-2.0) mmol/L Calcium 8.8 (8.4-10.2) mg/dL Magnesium (1.6-2.6) mg/dL Total Bilirubin (0.0-1.0) mg/dL Direct Bilirubin (0.0-0.5) mg/dL AST (5-31) U/L ALT (0-31) U/L Alkaline Phosphatase (39-117) U/L Total Protein (6.5-8.0) g/dL Albumin (3.5-5.0) g/dL Urine Color Urine Appearance Urine pH (5.0-8.0) Ur Specific [place] (1.005-1.025) Urine Protein (NEG-TRACE) MG/DL Urine Glucose (UA) (NEG) MG/DL Urine Ketones (NEG) MG/DL Urine Blood (NEG) Urine Nitrite (NEG) Ur Leukocyte Esterase (NEG) Urine RBC (0) /HPF Urine WBC (0-4) /HPF Urine WBC Clumps Ur Squamous Epith Cells /LPF Urine Bacteria /LPF Acetone, Qual (Negative) Coronavirus (PCR) (Negative) Influenza Type A (PCR) (Negative) Influenza Type B (PCR) (Negative) RSV RNA Qual (PCR) (Negative) <Christiano Isaacan CABLE ENGINEER - Last Filed: 02/04/20 20:40> Lab Results 02/04/20 02/04/20 02/04/20 Range/Units 12:53 12:53 12:53 WBC 11.7 H (4.8-10.8) X10*3/uL RBC 3.52 L (4.20-5.50) X10*6/uL Hgb 10.3 L (12.0-16.0) g/dl Hct 31.2 L (37-47) % MCV 88.6 (80-98) fL MCH 29.3 (27.0-33.0) pg MCHC 33.0 (31.0-35.0) g/dl RDW 12.6 (11.0-16.0) % Plt Count 277 (160-400) X10*3/uL MPV 10.3 (9.4-12.3) fL Immature Gran % (Auto) 0.4 (0.0-0.4) % Neut % (Auto) 87.5 H (45-73) % Lymph % (Auto) 4.9 L (20-40) % [place] % (Auto) 6.9 (2-11) % Eos % (Auto) 0.1 (0-4) % Baso % (Auto) 0.2 (0-2) % Lymph # (Auto) 0.6 L (1.2-4.9) X10*3/uL [place] # (Auto) 0.8 (0.1-1.2) X10*3/uL Eos # (Auto) 0.0 (0.0-0.4) X10*3/uL Baso # (Auto) 0.0 (0.0-0.2) X10*3/uL Abs Immat Gran (auto) 0.05 H (0.00-0.03) X10*3/uL Absolute Neuts (auto) 10.3 H (2.0-8.3) X10*3/uL Absolute Nucleated RBC 0.000 (0.0-0.012) X10*3/uL Nucleated RBC % (auto) 0.0 (0.0-0.2) /100WBC Smear Tech's Comments VERIFIED Hold Blue Top Sodium 127 L (135-145) mmol/L Potassium 4.6 (3.3-5.1) mmol/l Chloride 96 (96-108) mmol/L Carbon Dioxide 20 L (22-29) mmol/L Anion Gap 16 (12-20) BUN 37 H (9-16) mg/dL Creatinine 2.02 H (0.5-1.4) mg/dL Estim Creat Clear Calc 23.2 Estimated GFR 25 POC Glucose (60-115) mg/dL Random Glucose 682 H* (60-115) mg/dL Lactic Acid 2.4 H* (0.5-2.0) mmol/L Lactic Acid Fup @ 2Hr (0.5-2.0) mmol/L Calcium 8.9 (8.4-10.2) mg/dL Magnesium 1.8 (1.6-2.6) mg/dL Total Bilirubin 0.5 (0.0-1.0) mg/dL Direct Bilirubin 0.2 (0.0-0.5) mg/dL AST 28 (5-31) U/L ALT 31 (0-31) U/L Alkaline Phosphatase 189 H (39-117) U/L Total Protein 7.9 (6.5-8.0) g/dL Albumin 4.0 (3.5-5.0) g/dL Urine Color Urine Appearance Urine pH (5.0-8.0) Ur Specific [place] (1.005-1.025) Urine Protein (NEG-TRACE) MG/DL Urine Glucose (UA) (NEG) MG/DL Urine Ketones (NEG) MG/DL Urine Blood (NEG) Urine Nitrite (NEG) Ur Leukocyte Esterase (NEG) Urine RBC (0) /HPF Urine WBC (0-4) /HPF Urine WBC Clumps Ur Squamous Epith Cells /LPF Urine Bacteria /LPF Acetone, Qual (Negative) Coronavirus (PCR) (Negative) Influenza Type A (PCR) (Negative) Influenza Type B (PCR) (Negative) RSV RNA Qual (PCR) (Negative) 02/04/20 02/04/20 02/04/20 Range/Units 12:53 12:53 12:53 WBC (4.8-10.8) X10*3/uL RBC (4.20-5.50) X10*6/uL Hgb (12.0-16.0) g/dl Hct (37-47) % MCV (80-98) fL MCH (27.0-33.0) pg MCHC (31.0-35.0) g/dl RDW (11.0-16.0) % Plt Count (160-400) X10*3/uL MPV (9.4-12.3) fL Immature Gran % (Auto) (0.0-0.4) % Neut % (Auto) (45-73) % Lymph % (Auto) (20-40) % [place] % (Auto) (2-11) % Eos % (Auto) (0-4) % Baso % (Auto) (0-2) % Lymph # (Auto) (1.2-4.9) X10*3/uL [place] # (Auto) (0.1-1.2) X10*3/uL Eos # (Auto) (0.0-0.4) X10*3/uL Baso # (Auto) (0.0-0.2) X10*3/uL Abs Immat Gran (auto) (0.00-0.03) X10*3/uL Absolute Neuts (auto) (2.0-8.3) X10*3/uL Absolute Nucleated RBC (0.0-0.012) X10*3/uL Nucleated RBC % (auto) (0.0-0.2) /100WBC Smear Tech's Comments Hold Blue Top SEE NOTE Sodium (135-145) mmol/L Potassium (3.3-5.1) mmol/l Chloride (96-108) mmol/L Carbon Dioxide (22-29) mmol/L Anion Gap (12-20) BUN (9-16) mg/dL Creatinine (0.5-1.4) mg/dL Estim Creat Clear Calc Estimated GFR POC Glucose (60-115) mg/dL Random Glucose (60-115) mg/dL Lactic Acid (0.5-2.0) mmol/L Lactic Acid Fup @ 2Hr (0.5-2.0) mmol/L Calcium (8.4-10.2) mg/dL Magnesium (1.6-2.6) mg/dL Total Bilirubin (0.0-1.0) mg/dL Direct Bilirubin (0.0-0.5) mg/dL AST (5-31) U/L ALT (0-31) U/L Alkaline Phosphatase (39-117) U/L Total Protein (6.5-8.0) g/dL Albumin (3.5-5.0) g/dL Urine Color STRAW Urine Appearance HAZY Urine pH 5.5 (5.0-8.0) Ur Specific [place] 1.010 (1.005-1.025) Urine Protein NEG (NEG-TRACE) MG/DL Urine Glucose (UA) >=1000 H (NEG) MG/DL Urine Ketones NEG (NEG) MG/DL Urine Blood 3+ H (NEG) Urine Nitrite NEG (NEG) Ur Leukocyte Esterase NEG (NEG) Urine RBC 30-49 H (0) /HPF Urine WBC 50-75 H (0-4) /HPF Urine WBC Clumps NOTED Ur Squamous Epith Cells 1+ /LPF Urine Bacteria 1+ /LPF Acetone, Qual Negative (Negative) Coronavirus (PCR) (Negative) Influenza Type A (PCR) (Negative) Influenza Type B (PCR) (Negative) RSV RNA Qual (PCR) (Negative) 02/04/20 02/04/20 02/04/20 Range/Units 15:52 16:24 16:29 WBC (4.8-10.8) X10*3/uL RBC (4.20-5.50) X10*6/uL Hgb (12.0-16.0) g/dl Hct (37-47) % MCV (80-98) fL MCH (27.0-33.0) pg MCHC (31.0-35.0) g/dl RDW (11.0-16.0) % Plt Count (160-400) X10*3/uL MPV (9.4-12.3) fL Immature Gran % (Auto) (0.0-0.4) % Neut % (Auto) (45-73) % Lymph % (Auto) (20-40) % [place] % (Auto) (2-11) % Eos % (Auto) (0-4) % Baso % (Auto) (0-2) % Lymph # (Auto) (1.2-4.9) X10*3/uL [place] # (Auto) (0.1-1.2) X10*3/uL Eos # (Auto) (0.0-0.4) X10*3/uL Baso # (Auto) (0.0-0.2) X10*3/uL Abs Immat Gran (auto) (0.00-0.03) X10*3/uL Absolute Neuts (auto) (2.0-8.3) X10*3/uL Absolute Nucleated RBC (0.0-0.012) X10*3/uL Nucleated RBC % (auto) (0.0-0.2) /100WBC Smear Tech's Comments Hold Blue Top Sodium (135-145) mmol/L Potassium (3.3-5.1) mmol/l Chloride (96-108) mmol/L Carbon Dioxide (22-29) mmol/L Anion Gap (12-20) BUN (9-16) mg/dL Creatinine (0.5-1.4) mg/dL Estim Creat Clear Calc Estimated GFR POC Glucose 446 H* (60-115) mg/dL Random Glucose (60-115) mg/dL Lactic Acid (0.5-2.0) mmol/L Lactic Acid Fup @ 2Hr (0.5-2.0) mmol/L Calcium (8.4-10.2) mg/dL Magnesium (1.6-2.6) mg/dL Total Bilirubin (0.0-1.0) mg/dL Direct Bilirubin (0.0-0.5) mg/dL AST (5-31) U/L ALT (0-31) U/L Alkaline Phosphatase (39-117) U/L Total Protein (6.5-8.0) g/dL Albumin (3.5-5.0) g/dL Urine Color Cancelled Urine Appearance Cancelled Urine pH Cancelled (5.0-8.0) Ur Specific [place] Cancelled (1.005-1.025) Urine Protein Cancelled (NEG-TRACE) MG/DL Urine Glucose (UA) Cancelled (NEG) MG/DL Urine Ketones Cancelled (NEG) MG/DL Urine Blood Cancelled (NEG) Urine Nitrite Cancelled (NEG) Ur Leukocyte Esterase Cancelled (NEG) Urine RBC (0) /HPF Urine WBC (0-4) /HPF Urine WBC Clumps Ur Squamous Epith Cells /LPF Urine Bacteria /LPF Acetone, Qual (Negative) Coronavirus (PCR) NEGATIVE (Negative) Influenza Type A (PCR) NEGATIVE (Negative) Influenza Type B (PCR) NEGATIVE (Negative) RSV RNA Qual (PCR) NEGATIVE (Negative) 02/04/20 02/04/20 02/04/20 Range/Units 16:58 17:44 19:57 WBC (4.8-10.8) X10*3/uL RBC (4.20-5.50) X10*6/uL Hgb (12.0-16.0) g/dl Hct (37-47) % MCV (80-98) fL MCH (27.0-33.0) pg MCHC (31.0-35.0) g/dl RDW (11.0-16.0) % Plt Count (160-400) X10*3/uL MPV (9.4-12.3) fL Immature Gran % (Auto) (0.0-0.4) % Neut % (Auto) (45-73) % Lymph % (Auto) (20-40) % [place] % (Auto) (2-11) % Eos % (Auto) (0-4) % Baso % (Auto) (0-2) % Lymph # (Auto) (1.2-4.9) X10*3/uL [place] # (Auto) (0.1-1.2) X10*3/uL Eos # (Auto) (0.0-0.4) X10*3/uL Baso # (Auto) (0.0-0.2) X10*3/uL Abs Immat Gran (auto) (0.00-0.03) X10*3/uL Absolute Neuts (auto) (2.0-8.3) X10*3/uL Absolute Nucleated RBC (0.0-0.012) X10*3/uL Nucleated RBC % (auto) (0.0-0.2) /100WBC Smear Tech's Comments Hold Blue Top Sodium 137 (135-145) mmol/L Potassium 4.3 (3.3-5.1) mmol/l Chloride 104 (96-108) mmol/L Carbon Dioxide 20 L (22-29) mmol/L Anion Gap 17 (12-20) BUN 33 H (9-16) mg/dL Creatinine 1.72 H (0.5-1.4) mg/dL Estim Creat Clear Calc 27.3 Estimated GFR 30 POC Glucose 306 H (60-115) mg/dL Random Glucose 273 H D (60-115) mg/dL Lactic Acid (0.5-2.0) mmol/L Lactic Acid Fup @ 2Hr 1.4 (0.5-2.0) mmol/L Calcium 8.8 (8.4-10.2) mg/dL Magnesium (1.6-2.6) mg/dL Total Bilirubin (0.0-1.0) mg/dL Direct Bilirubin (0.0-0.5) mg/dL AST (5-31) U/L ALT (0-31) U/L Alkaline Phosphatase (39-117) U/L Total Protein (6.5-8.0) g/dL Albumin (3.5-5.0) g/dL Urine Color Urine Appearance Urine pH (5.0-8.0) Ur Specific [place] (1.005-1.025) Urine Protein (NEG-TRACE) MG/DL Urine Glucose (UA) (NEG) MG/DL Urine Ketones (NEG) MG/DL Urine Blood (NEG) Urine Nitrite (NEG) Ur Leukocyte Esterase (NEG) Urine RBC (0) /HPF Urine WBC (0-4) /HPF Urine WBC Clumps Ur Squamous Epith Cells /LPF Urine Bacteria /LPF Acetone, Qual (Negative) Coronavirus (PCR) (Negative) Influenza Type A (PCR) (Negative) Influenza Type B (PCR) (Negative) RSV RNA Qual (PCR) (Negative) <SANJANA Parks - Last Filed: 02/05/20 12:56> Lab Results 02/04/20 02/04/20 02/04/20 Range/Units 12:53 12:53 12:53 WBC 11.7 H (4.8-10.8) X10*3/uL RBC 3.52 L (4.20-5.50) X10*6/uL Hgb 10.3 L (12.0-16.0) g/dl Hct 31.2 L (37-47) % MCV 88.6 (80-98) fL MCH 29.3 (27.0-33.0) pg MCHC 33.0 (31.0-35.0) g/dl RDW 12.6 (11.0-16.0) % Plt Count 277 (160-400) X10*3/uL MPV 10.3 (9.4-12.3) fL Immature Gran % (Auto) 0.4 (0.0-0.4) % Neut % (Auto) 87.5 H (45-73) % Lymph % (Auto) 4.9 L (20-40) % [place] % (Auto) 6.9 (2-11) % Eos % (Auto) 0.1 (0-4) % Baso % (Auto) 0.2 (0-2) % Lymph # (Auto) 0.6 L (1.2-4.9) X10*3/uL [place] # (Auto) 0.8 (0.1-1.2) X10*3/uL Eos # (Auto) 0.0 (0.0-0.4) X10*3/uL Baso # (Auto) 0.0 (0.0-0.2) X10*3/uL Abs Immat Gran (auto) 0.05 H (0.00-0.03) X10*3/uL Absolute Neuts (auto) 10.3 H (2.0-8.3) X10*3/uL Absolute Nucleated RBC 0.000 (0.0-0.012) X10*3/uL Nucleated RBC % (auto) 0.0 (0.0-0.2) /100WBC Smear Tech's Comments VERIFIED Hold Blue Top Sodium 127 L (135-145) mmol/L Potassium 4.6 (3.3-5.1) mmol/l Chloride 96 (96-108) mmol/L Carbon Dioxide 20 L (22-29) mmol/L Anion Gap 16 (12-20) BUN 37 H (9-16) mg/dL Creatinine 2.02 H (0.5-1.4) mg/dL Estim Creat Clear Calc 23.2 Estimated GFR 25 POC Glucose (60-115) mg/dL Random Glucose 682 H* (60-115) mg/dL Lactic Acid 2.4 H* (0.5-2.0) mmol/L Lactic Acid Fup @ 2Hr (0.5-2.0) mmol/L Calcium 8.9 (8.4-10.2) mg/dL Magnesium 1.8 (1.6-2.6) mg/dL Total Bilirubin 0.5 (0.0-1.0) mg/dL Direct Bilirubin 0.2 (0.0-0.5) mg/dL AST 28 (5-31) U/L ALT 31 (0-31) U/L Alkaline Phosphatase 189 H (39-117) U/L Total Protein 7.9 (6.5-8.0) g/dL Albumin 4.0 (3.5-5.0) g/dL Urine Color Urine Appearance Urine pH (5.0-8.0) Ur Specific [place] (1.005-1.025) Urine Protein (NEG-TRACE) MG/DL Urine Glucose (UA) (NEG) MG/DL Urine Ketones (NEG) MG/DL Urine Blood (NEG) Urine Nitrite (NEG) Ur Leukocyte Esterase (NEG) Urine RBC (0) /HPF Urine WBC (0-4) /HPF Urine WBC Clumps Ur Squamous Epith Cells /LPF Urine Bacteria /LPF Acetone, Qual (Negative) Coronavirus (PCR) (Negative) Influenza Type A (PCR) (Negative) Influenza Type B (PCR) (Negative) RSV RNA Qual (PCR) (Negative) 02/04/20 02/04/20 02/04/20 Range/Units 12:53 12:53 12:53 WBC (4.8-10.8) X10*3/uL RBC (4.20-5.50) X10*6/uL Hgb (12.0-16.0) g/dl Hct (37-47) % MCV (80-98) fL MCH (27.0-33.0) pg MCHC (31.0-35.0) g/dl RDW (11.0-16.0) % Plt Count (160-400) X10*3/uL MPV (9.4-12.3) fL Immature Gran % (Auto) (0.0-0.4) % Neut % (Auto) (45-73) % Lymph % (Auto) (20-40) % [place] % (Auto) (2-11) % Eos % (Auto) (0-4) % Baso % (Auto) (0-2) % Lymph # (Auto) (1.2-4.9) X10*3/uL [place] # (Auto) (0.1-1.2) X10*3/uL Eos # (Auto) (0.0-0.4) X10*3/uL Baso # (Auto) (0.0-0.2) X10*3/uL Abs Immat Gran (auto) (0.00-0.03) X10*3/uL Absolute Neuts (auto) (2.0-8.3) X10*3/uL Absolute Nucleated RBC (0.0-0.012) X10*3/uL Nucleated RBC % (auto) (0.0-0.2) /100WBC Smear Tech's Comments Hold Blue Top SEE NOTE Sodium (135-145) mmol/L Potassium (3.3-5.1) mmol/l Chloride (96-108) mmol/L Carbon Dioxide (22-29) mmol/L Anion Gap (12-20) BUN (9-16) mg/dL Creatinine (0.5-1.4) mg/dL Estim Creat Clear Calc Estimated GFR POC Glucose (60-115) mg/dL Random Glucose (60-115) mg/dL Lactic Acid (0.5-2.0) mmol/L Lactic Acid Fup @ 2Hr (0.5-2.0) mmol/L Calcium (8.4-10.2) mg/dL Magnesium (1.6-2.6) mg/dL Total Bilirubin (0.0-1.0) mg/dL Direct Bilirubin (0.0-0.5) mg/dL AST (5-31) U/L ALT (0-31) U/L Alkaline Phosphatase (39-117) U/L Total Protein (6.5-8.0) g/dL Albumin (3.5-5.0) g/dL Urine Color STRAW Urine Appearance HAZY Urine pH 5.5 (5.0-8.0) Ur Specific [place] 1.010 (1.005-1.025) Urine Protein NEG (NEG-TRACE) MG/DL Urine Glucose (UA) >=1000 H (NEG) MG/DL Urine Ketones NEG (NEG) MG/DL Urine Blood 3+ H (NEG) Urine Nitrite NEG (NEG) Ur Leukocyte Esterase NEG (NEG) Urine RBC 30-49 H (0) /HPF Urine WBC 50-75 H (0-4) /HPF Urine WBC Clumps NOTED Ur Squamous Epith Cells 1+ /LPF Urine Bacteria 1+ /LPF Acetone, Qual Negative (Negative) Coronavirus (PCR) (Negative) Influenza Type A (PCR) (Negative) Influenza Type B (PCR) (Negative) RSV RNA Qual (PCR) (Negative) 02/04/20 02/04/20 02/04/20 Range/Units 15:52 16:24 16:29 WBC (4.8-10.8) X10*3/uL RBC (4.20-5.50) X10*6/uL Hgb (12.0-16.0) g/dl Hct (37-47) % MCV (80-98) fL MCH (27.0-33.0) pg MCHC (31.0-35.0) g/dl RDW (11.0-16.0) % Plt Count (160-400) X10*3/uL MPV (9.4-12.3) fL Immature Gran % (Auto) (0.0-0.4) % Neut % (Auto) (45-73) % Lymph % (Auto) (20-40) % [place] % (Auto) (2-11) % Eos % (Auto) (0-4) % Baso % (Auto) (0-2) % Lymph # (Auto) (1.2-4.9) X10*3/uL [place] # (Auto) (0.1-1.2) X10*3/uL Eos # (Auto) (0.0-0.4) X10*3/uL Baso # (Auto) (0.0-0.2) X10*3/uL Abs Immat Gran (auto) (0.00-0.03) X10*3/uL Absolute Neuts (auto) (2.0-8.3) X10*3/uL Absolute Nucleated RBC (0.0-0.012) X10*3/uL Nucleated RBC % (auto) (0.0-0.2) /100WBC Smear Tech's Comments Hold Blue Top Sodium (135-145) mmol/L Potassium (3.3-5.1) mmol/l Chloride (96-108) mmol/L Carbon Dioxide (22-29) mmol/L Anion Gap (12-20) BUN (9-16) mg/dL Creatinine (0.5-1.4) mg/dL Estim Creat Clear Calc Estimated GFR POC Glucose 446 H* (60-115) mg/dL Random Glucose (60-115) mg/dL Lactic Acid (0.5-2.0) mmol/L Lactic Acid Fup @ 2Hr (0.5-2.0) mmol/L Calcium (8.4-10.2) mg/dL Magnesium (1.6-2.6) mg/dL Total Bilirubin (0.0-1.0) mg/dL Direct Bilirubin (0.0-0.5) mg/dL AST (5-31) U/L ALT (0-31) U/L Alkaline Phosphatase (39-117) U/L Total Protein (6.5-8.0) g/dL Albumin (3.5-5.0) g/dL Urine Color Cancelled Urine Appearance Cancelled Urine pH Cancelled (5.0-8.0) Ur Specific [place] Cancelled (1.005-1.025) Urine Protein Cancelled (NEG-TRACE) MG/DL Urine Glucose (UA) Cancelled (NEG) MG/DL Urine Ketones Cancelled (NEG) MG/DL Urine Blood Cancelled (NEG) Urine Nitrite Cancelled (NEG) Ur Leukocyte Esterase Cancelled (NEG) Urine RBC (0) /HPF Urine WBC (0-4) /HPF Urine WBC Clumps Ur Squamous Epith Cells /LPF Urine Bacteria /LPF Acetone, Qual (Negative) Coronavirus (PCR) NEGATIVE (Negative) Influenza Type A (PCR) NEGATIVE (Negative) Influenza Type B (PCR) NEGATIVE (Negative) RSV RNA Qual (PCR) NEGATIVE (Negative) 02/04/20 02/04/20 02/04/20 Range/Units 16:58 17:44 19:57 WBC (4.8-10.8) X10*3/uL RBC (4.20-5.50) X10*6/uL Hgb (12.0-16.0) g/dl Hct (37-47) % MCV (80-98) fL MCH (27.0-33.0) pg MCHC (31.0-35.0) g/dl RDW (11.0-16.0) % Plt Count (160-400) X10*3/uL MPV (9.4-12.3) fL Immature Gran % (Auto) (0.0-0.4) % Neut % (Auto) (45-73) % Lymph % (Auto) (20-40) % [place] % (Auto) (2-11) % Eos % (Auto) (0-4) % Baso % (Auto) (0-2) % Lymph # (Auto) (1.2-4.9) X10*3/uL [place] # (Auto) (0.1-1.2) X10*3/uL Eos # (Auto) (0.0-0.4) X10*3/uL Baso # (Auto) (0.0-0.2) X10*3/uL Abs Immat Gran (auto) (0.00-0.03) X10*3/uL Absolute Neuts (auto) (2.0-8.3) X10*3/uL Absolute Nucleated RBC (0.0-0.012) X10*3/uL Nucleated RBC % (auto) (0.0-0.2) /100WBC Smear Tech's Comments Hold Blue Top Sodium 137 (135-145) mmol/L Potassium 4.3 (3.3-5.1) mmol/l Chloride 104 (96-108) mmol/L Carbon Dioxide 20 L (22-29) mmol/L Anion Gap 17 (12-20) BUN 33 H (9-16) mg/dL Creatinine 1.72 H (0.5-1.4) mg/dL Estim Creat Clear Calc 27.3 Estimated GFR 30 POC Glucose 306 H (60-115) mg/dL Random Glucose 273 H D (60-115) mg/dL Lactic Acid (0.5-2.0) mmol/L Lactic Acid Fup @ 2Hr 1.4 (0.5-2.0) mmol/L Calcium 8.8 (8.4-10.2) mg/dL Magnesium (1.6-2.6) mg/dL Total Bilirubin (0.0-1.0) mg/dL Direct Bilirubin (0.0-0.5) mg/dL AST (5-31) U/L ALT (0-31) U/L Alkaline Phosphatase (39-117) U/L Total Protein (6.5-8.0) g/dL Albumin (3.5-5.0) g/dL Urine Color Urine Appearance Urine pH (5.0-8.0) Ur Specific [place] (1.005-1.025) Urine Protein (NEG-TRACE) MG/DL Urine Glucose (UA) (NEG) MG/DL Urine Ketones (NEG) MG/DL Urine Blood (NEG) Urine Nitrite (NEG) Ur Leukocyte Esterase (NEG) Urine RBC (0) /HPF Urine WBC (0-4) /HPF Urine WBC Clumps Ur Squamous Epith Cells /LPF Urine Bacteria /LPF Acetone, Qual (Negative) Coronavirus (PCR) (Negative) Influenza Type A (PCR) (Negative) Influenza Type B (PCR) (Negative) RSV RNA Qual (PCR) (Negative) <Levy Hunter MD - Last Filed: 02/25/20 10:02> Discharge Plan Discharge Clinical Impression: Acute hyperglycemia, Recurrent UTI <SANJANA Enriquez - Last Filed: 02/04/20 17:18> Patient Disposition: Home, Self-Care <SANJANA Enriquez - Last Filed: 02/04/20 17:18> Instructions: Diabetic Hyperglycemia (ED), Urinary Tract Infection in Older Adults (ED) <SANJANA Enriquez - Last Filed: 02/04/20 17:18> Prescriptions: No Action clotrimazole [Gyne-Lotrimin 7] 1 % cream 1 appful vaginal BEDTIME 7 Days Qty: 45 RF: 1 (DME) pen needle, diabetic [BD Denisa 2nd Gen Pen Needle] 32 gauge x 5/32 needle See Rx Instructions .MEDSUPPLY Qty: 60 RF: 6 omeprazole 20 mg capsule,delayed release(DR/EC) 20 mg PO QAM Qty: 90 RF: 0 clopidogrel 75 mg tablet 75 mg PO DAILY 90 Days Qty: 90 RF: 0 insulin asp prt-insulin aspart [Novolog Mix 70-30FlexPen U-100] 100 unit/mL (70-30) insulin pen 30 unit subcut BID 30 Days Qty: 30 RF: 5 cholecalciferol (vitamin D3) 50 mcg (2,000 unit) capsule 50 mcg PO DAILY 30 Days Qty: 30 RF: 7 insulin asp prt-insulin aspart [Novolog Mix 70-30FlexPen U-100] 100 unit/mL (70-30) insulin pen 70 unit subcut TIDAC RF: 0 cyanocobalamin (vitamin B-12) [Vitamin B-12] 1,000 mcg Tablet 1,000 mcg PO DAILY Qty: 90 RF: 3 <SANJANA Enriquez - Last Filed: 02/04/20 17:18> Referrals: Kimi Patino MD [Primary Care Provider] - 3 days <SANJANA Enriquez - Last Filed: 02/04/20 17:18> Interventions: ED Discharge Assessment Last Done: 02/04/20 21:34 <SANJANA Enriquez - Last Filed: 02/04/20 17:18> Discharge Date/Time: 02/04/20 21:35 <SANJANA Enriquez - Last Filed: 02/04/20 17:18>
[2020-02-04 13:07] LABS: Basophils Percent Auto 0.2 % (0-2); Eosinophils Percent Auto 0.1 % (0-4); Glucose Urine UA >=1000 MG/DL (NEG); Hematocrit 31.2 % (37-47); Hemoglobin 10.3 g/dl (12.0-16.0); Imm Gran Abs Auto 0.05 X10*3/uL (0.00-0.03); Imm Gran Pct Auto 0.4 % (0.0-0.4); Leukocyte Esterase Urine NEG (NEG); Lymphocytes Absolute Auto 0.6 X10*3/uL (1.2-4.9); Lymphocytes Percent Auto 4.9 % (20-40); MANUAL DIFF FLAG SCAN; Mean Corpuscular Hemoglobin 29.3 pg (27.0-33.0); Mean Corpuscular Volume 88.6 fL (80-98); Mean Platelet Volume 10.3 fL (9.4-12.3); Monocytes Absolute Auto 0.8 X10*3/uL (0.1-1.2); Monocytes Percent Auto 6.9 % (2-11); Neutrophils Absolute Auto 10.3 X10*3/uL (2.0-8.3); Neutrophils Percent Auto 87.5 % (45-73); Nitrite Urine NEG (NEG); PH 5.5 (5.0-8.0); Platelet Count 277 X10*3/uL (160-400); Red Blood Count 3.52 X10*6/uL (4.20-5.50); Red Cell Distribution Width 12.6 % (11.0-16.0); SCAN SMEAR FLAG 1; Urine Blood 3+ (NEG); Urine Ketones NEG (NEG); Urine Protein NEG (NEG-TRACE); White Blood Count 11.7 X10*3/uL (4.8-10.8)
[2020-02-04 13:11] LABS: Appearance Urine HAZY; Color Urine STRAW
[2020-02-04 13:24] LABS: Bacteria Urine 1+ /LPF; RBC Urine 30-49 /HPF (0); Squamous Epithelial Cell Urine 1+ /LPF; UACC CULT YES; WBC Clumps Urine NOTED; WBC Urine 50-75 /HPF (0-4)
[2020-02-04 13:31] LABS: SLIDE REVIEW VERIFIED
[2020-02-04 13:36] LABS: Lactic Acid 2.4 mmol/L (0.5-2.0)
[2020-02-04 13:50] LABS: Alanine Aminotransferase 31 U/L (0-31); Alkaline Phosphatase 189 U/L (39-117); Anion Gap 16 (12-20); Aspartate Amino Transferase 28 U/L (5-31); Bilirubin Direct 0.2 mg/dL (0.0-0.5); Bilirubin Total 0.5 mg/dL (0.0-1.0); Blood Urea Nitrogen 37 mg/dL (9-16); Calcium 8.9 mg/dL (8.4-10.2); Carbon Dioxide 20 mmol/L (22-29); Chloride 96 mmol/L (96-108); Creatinine Clr Calc Pharmacy 23.2; Estimated Glomerular Filt Rate 25; Glucose Random 682 mg/dL (60-115); Magnesium 1.8 mg/dL (1.6-2.6); Potassium 4.6 mmol/l (3.3-5.1); Sodium 127 mmol/L (135-145); Total Protein 7.9 g/dL (6.5-8.0)
[2020-02-04] MEDS: Acetaminophen 325 MG TABLET 650 MG PO (13:52)
[2020-02-04] MEDS: 0.9 % Sodium Chloride 1,000 ML 999 ML IVCONT ×2 (13:57→15:45)
[2020-02-04] MEDS: cefTRIAXone sodium 1 GM in 0.9 % Sodium Chloride 50 ML IV (13:57)
[2020-02-04 15:01] LABS: Reflex Lactate? Lactic Acid Added
[2020-02-04 16:05] LABS: Acetone, serum QL Negative (Negative)
[2020-02-04 16:35] LABS: Glucose, Whole Blood 446 mg/dL (60-115)
[2020-02-04] MEDS: Insulin Regular, Human 100 UNIT/ML 3 ML VIAL 10 UNIT IVPUSH (16:52)
[2020-02-04 16:54] VITALS: BP 92/42; RESP 20; TEMP 36.9; O2SAT 97
[2020-02-04 17:27] LABS: Influenza A PCR NEGATIVE (Negative); Influenza B PCR NEGATIVE (Negative); Resp Syncy Virus RNA Qual PCR NEGATIVE (Negative); SARS COV2 PCR INHOUSE NEGATIVE (Negative)
[2020-02-04 17:52] LABS: Glucose, Whole Blood 306 mg/dL (60-115)
[2020-02-04 17:57] LABS: ~Lactic Acid-LAB USE ONLY 1.4 mmol/L (0.5-2.0)
[2020-02-04 18:17] VITALS: BP 107/54; PULSE 97; O2SAT 100
[2020-02-04 20:34] LABS: Anion Gap 17 (12-20); Blood Urea Nitrogen 33 mg/dL (9-16); Calcium 8.8 mg/dL (8.4-10.2); Carbon Dioxide 20 mmol/L (22-29); Chloride 104 mmol/L (96-108); Creatinine Clr Calc Pharmacy 27.3; Estimated Glomerular Filt Rate 30; Glucose Random 273 mg/dL (60-115); Potassium 4.3 mmol/l (3.3-5.1); Sodium 137 mmol/L (135-145)
[2020-02-04 21:12] VITALS: BP 127/59; PULSE 108; RESP 18; TEMP 37.6; O2SAT 99
== END 2020-02-04 21:35 | disposition home or self-care (01) ==
PROVIDERS: Nurse Practitioner Primary Care; Physician Assistant; Emergency Provider Emergency Medicine; PCP Internal Medicine
DX: E11.649 Type 2 diabetes mellitus with hypoglycemia without coma (principal); R50.9 Fever, unspecified; M79.10 Myalgia, unspecified site; Z79.899 Other long term (current) drug therapy; I10 Essential (primary) hypertension; Z20.828 Contact with and (suspected) exposure to other viral communicable diseases
CPT/HCPCS: 0241U; 36415; 71045; 80048; 80076; 81001; 81003; 82009; 82947; 83605; 83735; 85025; 87040; 87077; 87086; 87088; 87186; 93005; 96361; 96365; 96372; 96375; 99284; 99285; J0696

== ENCOUNTER 2020-02-05 14:54 | Inpatient (IN) | payer MEDICARE, MEDICAID, SELFPAY ==
[2020-02-05 15:09] VITALS: BP 118/57; PULSE 104; RESP 18; TEMP 37.7; O2SAT 97; BMI 30.9
--- NOTE | 2020-02-05 16:32 | ED_ITS ---
HPI - Recheck/Abnormal Lab/Rx General Chief Complaint: Recheck/Abnormal Lab/Rx Stated Complaint: Urinary problems Time Seen by Provider: 02/05/20 16:01 Source: patient and family Mode of arrival: ambulatory Limitations: no limitations History of Present Illness HPI narrative: 69-year-old female with a past medical history of CVA on Plavix, diabetes, vitamin-B deficiency, hypertension, hyperlipidemia, hypothyroidism, renal tubular acidosis here with abnormal blood cultures. Patient was seen in this department last evening 02/03 was diagnosed with the UTI. She was received a dose of ceftriaxone was sent home with oral Levaquin. She had blood cultures which 1 of 2 today are growing gram negative rods. Her urine culture and a 2nd blood culture are pending. Per family and the patient had a fever of 102.4 and is confused and generally weak and they became concerned and they brought her back into the emergency department. complaint: abnormal lab Initial visit (ago): day(s) Returns today for: called because of abnormal lab/test Symptoms since prior visit: fever Context: called for abnormal lab result Associated symptoms: fever, chills and malaise Treatments prior to arrival: given antibiotics on (02/03. Ceftriaxone in the ED. Levaquin for home. ) Related Data Home Medications Medication Instructions Recorded Confirmed atorvastatin 40 mg tablet 40 mg PO DAILY 01/13/20 02/05/20 dulaglutide 0.75 mg/0.5 mL 0.75 mg SUBCUT QWEEK 01/13/20 02/05/20 subcutaneous pen injector famotidine 20 mg tablet 20 mg PO BEDTIME 01/13/20 02/05/20 furosemide 20 mg tablet 10 mg PO DAILY tab 01/13/20 02/05/20 insulin aspart U-100 100 unit/mL 15 unit SUBCUT TID 01/13/20 (3 mL) subcutaneous pen insulin degludec 100 unit/mL (3 30 unit SUBCUT DAILY ml 01/13/20 mL) subcutaneous pen levothyroxine 100 mcg tablet 100 mcg PO DAILY 01/13/20 02/05/20 metoprolol succinate 25 mg 12.5 mg PO BID 01/13/20 02/05/20 tablet,extended release 24 hr insulin asp prt-insulin aspart SUBCUT TIDAC 02/05/20 [Novolog Mix 70-30FlexPen U-100] Previous Rx's Medication Instructions Recorded clotrimazole 1 % vaginal cream 1 appful VAGINAL BEDTIME 7 Days 12/15/19 #45 g pen needle, diabetic 32 gauge x #60 ea 12/27/19 omeprazole 20 mg capsule,delayed 20 mg PO QAM #90 cap 01/10/20 release clopidogrel 75 mg tablet 75 mg PO DAILY 90 Days #90 tab 01/11/20 cholecalciferol (vitamin D3) 50 50 mcg PO DAILY 30 Days #30 cap 01/31/20 mcg (2,000 unit) capsule insulin aspar prot-insulin aspart 30 unit SUBCUT BID 30 Days #30 ml 01/31/20 100 unit/mL (70-30) subcutaneous pen levofloxacin 500 mg PO Q24H #5 tab 02/04/20 Allergies Allergy/AdvReac Type Severity Reaction Status Date / Time aspirin [ASPIRIN] Allergy Severe SWELLING, Verified 02/05/20 15:09 swelling, rash fish derived [FISH] Allergy Mild RASH Verified 02/05/20 15:09 fish Allergy Unknown swelling Verified 02/05/20 15:09 penicillin V Allergy Unknown swelling, Verified 02/05/20 15:09 rash Penicillins [PENICILLINS] Allergy Unknown SWELLING Verified 02/05/20 15:09 Review of Systems Review of Systems: Yes all other systems are reviewed and are negative Constitutional: Constitutional: Reports no additional constitutional complaints, Denies body ache(s), Denies chills, Reports fatigue, Reports fever(s), Denies headache(s) and Denies weakness Eyes: Eyes: Reports no additional eye complaints and Denies change in vision ENT: Reports system reviewed and no additional complaints, except as documented, Denies dizziness, Denies headache(s), Denies nasal congestion, Denies nasal discharge and Denies neck pain Cardiovascular: Cardiovascular: Reports no additional cardiovascular complaints, Denies chest pain, Denies leg edema and Denies dyspnea Respiratory: Respiratory: Reports no additional respiratory complaints, Denies cough and Denies dyspnea Gastrointestinal: Gastrointestinal: Reports no additional gastrointestinal com plaints, Denies abdominal pain, Denies diarrhea, Denies nausea and Denies vomiting Genitourinary: Genitourinary: Reports no additional female genitourinary complaints and Denies urinary incontinence Musculoskeletal: Musculoskeletal: Reports no additional musculoskeletal complaints, Denies back pain, Denies arthralgias, Denies joint swelling, Denies neck pain, Denies numbness and Denies tingling Integumentary/Breasts: Skin/Breast: Reports system reviewed and no additional complaints, except as docu and Denies rash Neurologic: Reports system reviewed and no additional complaints, except as documented, Denies Abnormal speech present, Denies dizziness, Denies headache(s), Denies numbness, Denies tingling and Denies weakness Endocrine: Endocrine: Reports fatigue PMFSH Past Medical History Attestation statement: The following information was validated with the patient. Source: old records reviewed Medical History (Updated 02/05/20 @ 19:48 by Adela Díaz NP) Bacteremia CVA (cerebral vascular accident) Diabetes Diabetes type 2, uncontrolled Diabetic neuropathy History of non anemic vitamin B12 deficiency History of uterine fibroid HTN (hypertension) Hyperlipemia Hypothyroidism Iron deficiency anemia Renal tubular acidosis Vitamin D deficiency Yeast infection involving the vagina and surrounding area Surgical History H/O carotid endarterectomy History of cataract surgery History of hysterectomy Family History Family History (Updated 02/05/20 @ 18:50 by Caity Miranda NP) Maternal Grandmother Pancreatic cancer Social History Social History Alcohol intake: never Smoking Status: Never smoker Advance Directives: No Advance Directives Information Provided: Yes Physical Exam Vital Signs: Vital Signs: Last Vital Signs Temp 99.9 F 02/05/20 15:09 Pulse 104 H 02/05/20 15:09 Resp 18 02/05/20 15:09 BP 118/57 L 02/05/20 15:09 Pulse Ox 97 02/05/20 15:09 Body Mass Index 30.9 Const: Orientation/consciousness: patient oriented x3 Limitations: no limitations HENMT: Head: Yes normal to inspection Ears: hearing grossly normal bilaterally General nose exam: Normal external nose present Face and sinus: Yes normal facial exam Mouth: Normal oral and palatal mucosa present Throat: Yes posterior oropharynx normal Eyes: General: appearance normal, both eyes and all related structures Pupils: Equal, round and reactive pupils present Neck: Neck: Yes normal visual inspection Chest: Chest palpation & inspection: normal inspection of the chest Resp: Effort & Inspection: normal respiratory effort Auscultation: clear to auscultation bilaterally Cardio: Rate: regular rate Rhythm: regular rhythm Peripheral pulses: Peripheral pulses 2+ throughout GI: Inspection: Yes normal to inspection Palpation (GI): Soft to palpation and nontender Auscultation: normal bowel sounds Back/Spine/Pelvis: Thoracic/Lumbar Spine: thoracic and lumbar spine normal to inspection Skin: General skin exam: no rashes or lesions noted Neuro: Other: patient oriented x3, family describes confusion as forgetfulness General: patient oriented x3 and gait normal Cranial nerves: Yes CN's II-XII intact bilaterally, Yes Equal, round and reactive pupils present, Yes Bilaterally intact EOM present, Yes Nystagmus not present, Yes Normal facial strength present and Yes Midline tongue present Cognition (Neuro): normal cognition Speech: No Abnormal speech present Gait exam (Neuro): Normal gait present Motor exam (neuro): 5/5 motor strength present throughout Sensory Exam: Normal double simultaneous stimulation for sensation Extrem: General: Yes normal to inspection Course Course Course Narrative: 69-year-old female here with positive blood culture 1 of 2 (gram negative rods) likely secondary to UTI. Febrile was afternoon. Will plan to recheck labs including blood cultures and send a new UA today. At this time infection is suspected. Antibiotics ordered. 1750-labs show renal function at baseline. Hyperglycemia, sodium 131 but uncorrected. Normal lactic acid. Repeat blood cultures and urine pending. Insulin, normal saline bolus ordered. BOSTON at baseline. 1900-Discussed with Caity HUSSEIN who accepted admission. MDM - Recheck/Abnormal Lab/Rx MDM Narrative Medical decision making narrative: Bacteremia, UTI Lab Data Result diagrams: 02/05/20 16:45 02/05/20 16:45 Labs: Lab Results 02/05/20 02/05/20 02/05/20 Range/Units 16:45 16:45 16:45 WBC 11.1 H (4.8-10.8) X10*3/uL RBC 3.06 L (4.20-5.50) X10*6/uL Hgb 9.0 L (12.0-16.0) g/dl Hct 27.5 L (37-47) % MCV 89.9 (80-98) fL MCH 29.4 (27.0-33.0) pg MCHC 32.7 (31.0-35.0) g/dl RDW 13.1 (11.0-16.0) % Plt Count 223 (160-400) X10*3/uL MPV 10.8 (9.4-12.3) fL Immature Gran % (Auto) 0.5 H (0.0-0.4) % Neut % (Auto) 83.7 H (45-73) % Lymph % (Auto) 8.6 L (20-40) % [place] % (Auto) 7.0 (2-11) % Eos % (Auto) 0.0 (0-4) % Baso % (Auto) 0.2 (0-2) % Lymph # (Auto) 1.0 L (1.2-4.9) X10*3/uL [place] # (Auto) 0.8 (0.1-1.2) X10*3/uL Eos # (Auto) 0.0 (0.0-0.4) X10*3/uL Baso # (Auto) 0.0 (0.0-0.2) X10*3/uL Abs Immat Gran (auto) 0.05 H (0.00-0.03) X10*3/uL Absolute Neuts (auto) 9.3 H (2.0-8.3) X10*3/uL Absolute Nucleated RBC 0.000 (0.0-0.012) X10*3/uL Nucleated RBC % (auto) 0.0 (0.0-0.2) /100WBC Sodium 131 L (135-145) mmol/L Potassium 4.6 (3.3-5.1) mmol/l Chloride 102 (96-108) mmol/L Carbon Dioxide 17 L (22-29) mmol/L Anion Gap 17 (12-20) BUN 31 H (9-16) mg/dL Creatinine 1.77 H (0.5-1.4) mg/dL Estim Creat Clear Calc 25.0 Estimated GFR 29 Random Glucose 487 H* (60-115) mg/dL Lactic Acid 1.3 (0.5-2.0) mmol/L Calcium 8.4 (8.4-10.2) mg/dL Total Bilirubin 0.5 (0.0-1.0) mg/dL Direct Bilirubin 0.3 (0.0-0.5) mg/dL AST 31 (5-31) U/L ALT 28 (0-31) U/L Alkaline Phosphatase 139 H D (39-117) U/L Total Protein 6.9 (6.5-8.0) g/dL Albumin 3.5 (3.5-5.0) g/dL Urine Color Urine Appearance Urine pH (5.0-8.0) Ur Specific [place] (1.005-1.025) Urine Protein (NEG-TRACE) MG/DL Urine Glucose (UA) (NEG) MG/DL Urine Ketones (NEG) MG/DL Urine Blood (NEG) Urine Nitrite (NEG) Ur Leukocyte Esterase (NEG) Urine RBC (0) /HPF Urine WBC (0-4) /HPF Ur Squamous Epith Cells /LPF Urine Bacteria /LPF COVID-19 ([facility]) (Negative) COVID-19 Clin Com 02/05/20 02/05/20 Range/Units 16:45 16:57 WBC (4.8-10.8) X10*3/uL RBC (4.20-5.50) X10*6/uL Hgb (12.0-16.0) g/dl Hct (37-47) % MCV (80-98) fL MCH (27.0-33.0) pg MCHC (31.0-35.0) g/dl RDW (11.0-16.0) % Plt Count (160-400) X10*3/uL MPV (9.4-12.3) fL Immature Gran % (Auto) (0.0-0.4) % Neut % (Auto) (45-73) % Lymph % (Auto) (20-40) % [place] % (Auto) (2-11) % Eos % (Auto) (0-4) % Baso % (Auto) (0-2) % Lymph # (Auto) (1.2-4.9) X10*3/uL [place] # (Auto) (0.1-1.2) X10*3/uL Eos # (Auto) (0.0-0.4) X10*3/uL Baso # (Auto) (0.0-0.2) X10*3/uL Abs Immat Gran (auto) (0.00-0.03) X10*3/uL Absolute Neuts (auto) (2.0-8.3) X10*3/uL Absolute Nucleated RBC (0.0-0.012) X10*3/uL Nucleated RBC % (auto) (0.0-0.2) /100WBC Sodium (135-145) mmol/L Potassium (3.3-5.1) mmol/l Chloride (96-108) mmol/L Carbon Dioxide (22-29) mmol/L Anion Gap (12-20) BUN (9-16) mg/dL Creatinine (0.5-1.4) mg/dL Estim Creat Clear Calc Estimated GFR Random Glucose (60-115) mg/dL Lactic Acid (0.5-2.0) mmol/L Calcium (8.4-10.2) mg/dL Total Bilirubin (0.0-1.0) mg/dL Direct Bilirubin (0.0-0.5) mg/dL AST (5-31) U/L ALT (0-31) U/L Alkaline Phosphatase (39-117) U/L Total Protein (6.5-8.0) g/dL Albumin (3.5-5.0) g/dL Urine Color YELLOW Urine Appearance HAZY Urine pH 6.0 (5.0-8.0) Ur Specific [place] 1.010 (1.005-1.025) Urine Protein TRACE (NEG-TRACE) MG/DL Urine Glucose (UA) >=1000 H (NEG) MG/DL Urine Ketones NEG (NEG) MG/DL Urine Blood 3+ H (NEG) Urine Nitrite NEG (NEG) Ur Leukocyte Esterase NEG (NEG) Urine RBC TNTC H (0) /HPF Urine WBC 1-4 (0-4) /HPF Ur Squamous Epith Cells 2+ /LPF Urine Bacteria NONE /LPF COVID-19 ([facility]) Negative (Negative) COVID-19 Clin Com See Note Discharge Plan Discharge Clinical Impression: Blood bacterial culture positive, Acute UTI, BOSTON (iron deficiency anemia), Chronic hyperglycemia Prescriptions: No Action clotrimazole [Gyne-Lotrimin 7] 1 % cream 1 appful vaginal BEDTIME 7 Days Qty: 45 RF: 1 (DME) pen needle, diabetic [BD Denisa 2nd Gen Pen Needle] 32 gauge x 5/32 needle See Rx Instructions .MEDSUPPLY Qty: 60 RF: 6 omeprazole 20 mg capsule,delayed release(DR/EC) 20 mg PO QAM Qty: 90 RF: 0 clopidogrel 75 mg tablet 75 mg PO DAILY 90 Days Qty: 90 RF: 0 insulin asp prt-insulin aspart [Novolog Mix 70-30FlexPen U-100] 100 unit/mL (70-30) insulin pen 30 unit subcut BID 30 Days Qty: 30 RF: 5 cholecalciferol (vitamin D3) 50 mcg (2,000 unit) capsule 50 mcg PO DAILY 30 Days Qty: 30 RF: 7 insulin asp prt-insulin aspart [Novolog Mix 70-30FlexPen U-100] 100 unit/mL (70-30) insulin pen subcut TIDAC RF: 0 levofloxacin 500 mg tablet 500 mg PO Q24H Qty: 5 RF: 0
[2020-02-05 16:56] LABS: Basophils Percent Auto 0.2 % (0-2); Hematocrit 27.5 % (37-47); Imm Gran Abs Auto 0.05 X10*3/uL (0.00-0.03); Imm Gran Pct Auto 0.5 % (0.0-0.4); Lymphocytes Percent Auto 8.6 % (20-40); MANUAL DIFF FLAG NO; Mean Corpuscular HGB Conc 32.7 g/dl (31.0-35.0); Mean Corpuscular Hemoglobin 29.4 pg (27.0-33.0); Mean Corpuscular Volume 89.9 fL (80-98); Mean Platelet Volume 10.8 fL (9.4-12.3); Monocytes Absolute Auto 0.8 X10*3/uL (0.1-1.2); Neutrophils Absolute Auto 9.3 X10*3/uL (2.0-8.3); Neutrophils Percent Auto 83.7 % (45-73); Platelet Count 223 X10*3/uL (160-400); Red Blood Count 3.06 X10*6/uL (4.20-5.50); Red Cell Distribution Width 13.1 % (11.0-16.0); White Blood Count 11.1 X10*3/uL (4.8-10.8)
[2020-02-05] MEDS: cefTRIAXone sodium 1 GM in 0.9 % Sodium Chloride 50 ML IV (17:01)
[2020-02-05 17:10] LABS: Glucose Urine UA >=1000 MG/DL (NEG); Leukocyte Esterase Urine NEG (NEG); Nitrite Urine NEG (NEG); Urine Blood 3+ (NEG); Urine Ketones NEG (NEG); Urine Protein TRACE MG/DL (NEG-TRACE)
[2020-02-05 17:11] LABS: Appearance Urine HAZY; Color Urine YELLOW
[2020-02-05 17:19] LABS: RBC Urine TNTC /HPF (0); Squamous Epithelial Cell Urine 2+ /LPF
[2020-02-05 17:19] LABS: IDNOW Serial# 9DD0AD1C; Lactic Acid 1.3 mmol/L (0.5-2.0)
[2020-02-05 17:20] LABS: COVID-19 Test Negative (Negative)
[2020-02-05 17:30] LABS: Glucose Random 487 mg/dL (60-115)
[2020-02-05 17:32] LABS: Alanine Aminotransferase 28 U/L (0-31); Albumin Level 3.5 g/dL (3.5-5.0); Alkaline Phosphatase 139 U/L (39-117); Anion Gap 17 (12-20); Aspartate Amino Transferase 31 U/L (5-31); Bilirubin Direct 0.3 mg/dL (0.0-0.5); Bilirubin Total 0.5 mg/dL (0.0-1.0); Blood Urea Nitrogen 31 mg/dL (9-16); Calcium 8.4 mg/dL (8.4-10.2); Carbon Dioxide 17 mmol/L (22-29); Chloride 102 mmol/L (96-108); Estimated Glomerular Filt Rate 29; Potassium 4.6 mmol/l (3.3-5.1); Sodium 131 mmol/L (135-145); Total Protein 6.9 g/dL (6.5-8.0)
[2020-02-05 18:00] VITALS: BP 116/51; PULSE 100; RESP 16; O2SAT 97
[2020-02-05] MEDS: 0.9 % Sodium Chloride 1,000 ML 999 ML IV (18:38)
[2020-02-05] MEDS: Insulin Regular, Human 100 UNIT/ML 3 ML VIAL IVPUSH (18:38)
--- NOTE | 2020-02-05 18:48 | P.HPHOSP_ITS ---
History of Present Illness Date of Service: 02/05/20 <Caity Miranda NP - Last Filed: 02/05/20 20:02> Chief Complaint: Fever <Caity Miranda NP - Last Filed: 02/05/20 20:02> 69 year old women recently diagnosed with UTI and sent home with Levaquin. She was called at home and given results from urine culture. 1/2 gram negative rods found. She was told to come to the ED however, she declined but was told to come to the ED if she develops symptoms. Her daughter then brought her in today due to fever. She denied cough, nausea, vomiting, diarrhea. Sodium is noted to be 131, creatinine 1.77. She was given a dose of Rocephin. She will be admitted for further management of bacteremia secondary to UTI. <Caity Miranda NP - Last Filed: 02/05/20 20:02> Review of Systems Review of Systems: Denies any recent fever chills or decrease in appetite respiratory denies any shortness of breath coverage production cardiovascular is adjustment of any PND or edema gastrointestinal denies any dysphagia abdominal pain nausea vomiting or diarrhea genitourinary denies any dysuria frequency or hematuria musculoskeletal denies any joint pain or swelling neuropsych denies any weakness or seizures all other systems reviewed are negative <Caity Miranda NP - Last Filed: 02/05/20 20:02> Constitutional: Constitutional: Denies headache(s) and Denies weakness <Caity Miranda NP - Last Filed: 02/05/20 20:02> ENT: Denies dizziness and Denies headache(s) <Caity Miranda NP - Last Filed: 02/05/20 20:02> Musculoskeletal: Musculoskeletal: Denies numbness and Denies tingling <Caity Miranda NP - Last Filed: 02/05/20 20:02> Neurologic: Reports system reviewed and no additional complaints, except as documented, Denies Abnormal speech present, Denies dizziness, Denies headache(s), Denies numbness, Denies tingling and Denies weakness <Caity Miranda NP - Last Filed: 02/05/20 20:02> [facility] Medical History: Medical History (Updated 02/22/20 @ 14:56 by Miriam Pascual MD) Bacteremia CVA (cerebral vascular accident) Diabetes Diabetes type 2, uncontrolled Diabetic neuropathy History of non anemic vitamin B12 deficiency History of uterine fibroid HTN (hypertension) Hyperlipemia Hypothyroidism Iron deficiency anemia Renal tubular acidosis Vitamin D deficiency Yeast infection involving the vagina and surrounding area <Caity Miranda NP - Last Filed: 02/05/20 20:02> Family History: Family History (Updated 02/05/20 @ 18:50 by Caity Miranda NP) Maternal Grandmother Pancreatic cancer <Caity Miranda NP - Last Filed: 02/05/20 20:02> Surgical History: Surgical History (Updated 02/22/20 @ 14:56 by Miriam Pascual MD) H/O carotid endarterectomy History of cataract surgery History of hysterectomy <Caity Miranda NP - Last Filed: 02/05/20 20:02> Social History: Social History Household Members: Spouse Housing: Apartment Alcohol intake: never Smoking Status: Never smoker Second Hand Smoke Exposure: No service: No Current occupational status: unemployed <Caity Miranda NP - Last Filed: 02/05/20 20:02> Meds Allergies/Adverse reactions: Allergies Allergy/AdvReac Type Severity Reaction Status Date / Time aspirin [ASPIRIN] Allergy Severe SWELLING, Verified 02/05/20 15:09 swelling, rash fish derived [FISH] Allergy Mild RASH Verified 02/05/20 15:09 fish Allergy Unknown swelling Verified 02/05/20 15:09 penicillin V Allergy Unknown swelling, Verified 02/05/20 15:09 rash Penicillins [PENICILLINS] Allergy Unknown SWELLING Verified 02/05/20 15:09 <Caity Miranda NP - Last Filed: 02/05/20 20:02> Home medications: Home Medications Medication Instructions Recorded Confirmed Type atorvastatin 40 mg tablet 40 mg PO DAILY 01/13/20 02/22/20 History dulaglutide 0.75 mg/0.5 mL 0.75 mg SUBCUT QWEEK 01/13/20 02/22/20 History subcutaneous pen injector famotidine 20 mg tablet 20 mg PO BEDTIME 01/13/20 02/22/20 History furosemide 20 mg tablet 10 mg PO DAILY tab 01/13/20 02/22/20 History insulin aspart U-100 100 unit/mL 15 unit SUBCUT TID 01/13/20 02/22/20 History (3 mL) subcutaneous pen insulin degludec 100 unit/mL (3 30 unit SUBCUT DAILY ml 01/13/20 02/22/20 History mL) subcutaneous pen levothyroxine 100 mcg tablet 100 mcg PO DAILY 01/13/20 02/22/20 History metoprolol succinate 25 mg 12.5 mg PO BID 01/13/20 02/22/20 History tablet,extended release 24 hr insulin asp prt-insulin aspart 70 unit SUBCUT TIDAC 02/05/20 02/22/20 History [Novolog Mix 70-30FlexPen U-100] <Caity Miranda NP - Last Filed: 02/05/20 20:02> Physical Exam Vital Signs and Narrative: Vital Signs: Last Vital Signs Temp 99.9 F 02/05/20 15:09 Pulse 104 H 02/05/20 15:09 Resp 18 02/05/20 15:09 BP 118/57 L 02/05/20 15:09 Pulse Ox 97 02/05/20 15:09 Body Mass Index 30.9 <Caity Miranda NP - Last Filed: 02/05/20 20:02> Appearing in no acute distress head is normocephalic atraumatic eyes pupils are PERRLA sclera is anicteric mouth throat mucous membranes are intact and moist neck is supple no lymphadenopathy, no JVD noted lung sounds are clear to auscultation heart regular rate rhythm, clear S1, S2 positive bowel sounds, abdomen is soft, nontender neuro patient is alert x3, no focal deficits <Caity Miranda NP - Last Fi led: 02/05/20 20:02> Neuro: Speech: No Abnormal speech present <Caity Miranda NP - Last Neo ed: 02/05/20 20:02> Results Labs CBC and Chem 7: : 02/06/20 05:18 02/06/20 05:18 <Caity Miranda NP - Last Filed: 02/05/20 20:02> Labs: Laboratory Results - last 24 hr 02/05/20 02/05/20 02/05/20 16:45 16:45 16:45 MCV 89.9 MCH 29.4 MCHC 32.7 RDW 13.1 Plt Count 223 MPV 10.8 Immature Gran % (Auto) 0.5 H Neut % (Auto) 83.7 H Lymph % (Auto) 8.6 L [place] % (Auto) 7.0 Eos % (Auto) 0.0 Baso % (Auto) 0.2 Lymph # (Auto) 1.0 L [place] # (Auto) 0.8 Eos # (Auto) 0.0 Baso # (Auto) 0.0 Abs Immat Gran (auto) 0.05 H Absolute Neuts (auto) 9.3 H Absolute Nucleated RBC 0.000 Nucleated RBC % (auto) 0.0 Anion Gap 17 Estim Creat Clear Calc 25.0 Estimated GFR 29 Random Glucose 487 H* Lactic Acid 1.3 Calcium 8.4 Total Bilirubin 0.5 Direct Bilirubin 0.3 AST 31 ALT 28 Alkaline Phosphatase 139 H D Total Protein 6.9 Albumin 3.5 Urine Color Urine Appearance Urine pH Ur Specific [place] Urine Protein Urine Glucose (UA) Urine Ketones Urine Blood Urine Nitrite Ur Leukocyte Esterase Urine RBC Urine WBC Ur Squamous Epith Cells Urine Bacteria COVID-19 ([facility]) COVID-19 [facility] Com 02/05/20 02/05/20 16:45 16:57 MCV MCH MCHC RDW Plt Count MPV Immature Gran % (Auto) Neut % (Auto) Lymph % (Auto) [place] % (Auto) Eos % (Auto) Baso % (Auto) Lymph # (Auto) [place] # (Auto) Eos # (Auto) Baso # (Auto) Abs Immat Gran (auto) Absolute Neuts (auto) Absolute Nucleated RBC Nucleated RBC % (auto) Anion Gap Estim Creat Clear Calc Estimated GFR Random Glucose Lactic Acid Calcium Total Bilirubin Direct Bilirubin AST ALT Alkaline Phosphatase Total Protein Albumin Urine Color YELLOW Urine Appearance HAZY Urine pH 6.0 Ur Specific [place] 1.010 Urine Protein TRACE Urine Glucose (UA) >=1000 H Urine Ketones NEG Urine Blood 3+ H Urine Nitrite NEG Ur Leukocyte Esterase NEG Urine RBC TNTC H Urine WBC 1-4 Ur Squamous Epith Cells 2+ Urine Bacteria NONE COVID-19 ([facility]) Negative COVID-19 Clin Com See Note <Caity Miranda NP - Last Filed: 02/05/20 20:02> Assessment and Plan (1) Bacteremia: Status: Acute <Caity Miranda NP - Last Filed: 02/05/20 20:02> 69 year old women admitted with Bacteremia secondary to UTI. Failed outpatient treatment. Bacteremia secondary to UTI. No sepsis. 1/2 + for gram negative rods. Rocephin. Follow urine culture. Diabetes. Sliding scale, ADA diet Hyperlipidemia. Plavix and statin. Hypothyroidism. Levothyroxine. GERD. Continue PPI. DVT prophylaxis with Heparin Discussed with Dr. Joya Full code <Caity Miranda NP - Last Filed: 02/05/20 20:02>
--- NOTE | 2020-02-05 19:01 | PC.NURSE ---
DAUGHTER DAVID [phone] CONFIRMED ALL MEDS
--- NOTE | 2020-02-05 19:25 | PC.NURSE ---
HOSPITALIST IN ROOM FOR EVAL.
--- NOTE | 2020-02-05 21:14 | PC.NURSE ---
UNABLE TO GIVE REPORT TO FLOOR. WILL RETURN CALL.
[2020-02-05 22:00] VITALS: BP 115/48; PULSE 106; RESP 16; O2SAT 96
--- NOTE | 2020-02-06 00:39 | PC.NURSE ---
PT'S ROOM ASSIGNMENT CHG TO 443-1. UNABLE TO GIVE REPORT AT THIS TIME. WILL CONTINUE TO MONITOR PT DENIES ANY COMPLAINTS AT THIS TIME. PT UP TO RESTROOM WITH WALKER. PT REMAINIS ALERT, RESPIRATIONS EASY, N/L. SKIN W/D.
--- NOTE | 2020-02-06 01:48 | PC.NURSE ---
PT TO FLOOR IN STRETCHER IN NAD. HL TO RIGHT FA FLUSHES W/O DIFFICULTY, SITE INTACT. PT DENIES ANY COMPLAINTS. REPORT TO RN ON IMC.
[2020-02-06 02:08] VITALS: BP 144/63; PULSE 101; RESP 18; TEMP 37.8; O2SAT 98
[2020-02-06 02:36] LABS: Glucose, Whole Blood 303 mg/dL (60-115)
[2020-02-06] MEDS: Insulin Lispro 100 UNIT/ML 3 ML VIAL SUBCUT ×5 (03:27→20:45)
[2020-02-06] MEDS: 0.9 % Sodium Chloride Flush 3 ML SYRINGE IVFLUSH ×2 (03:28→08:20)
[2020-02-06] MEDS: Heparin Sodium,Porcine 5,000 UNIT/ML VIAL 5000 UNIT SUBCUT ×2 (05:48→17:04)
--- NOTE | 2020-02-06 06:06 | P.EN_ITS ---
Event Note Date of Service: 02/05/20 Event Note: Pt seen and examined with JACOB. I agree with note, assessment and p jimmy Pt admitted for bacturia, most likely urine. At this time pt asymptomatic, no leukocytosis, afebrile
[2020-02-06 06:21] LABS: MANUAL DIFF FLAG NO
[2020-02-06 06:45] VITALS: BP 123/57; PULSE 90; RESP 18; TEMP 36.8; O2SAT 98
[2020-02-06 06:54] LABS: Basophils Percent Auto 0.1 % (0-2); Hematocrit 26.9 % (37-47); Hemoglobin 8.7 g/dl (12.0-16.0); Imm Gran Abs Auto 0.03 X10*3/uL (0.00-0.03); Imm Gran Pct Auto 0.3 % (0.0-0.4); Lymphocytes Absolute Auto 0.9 X10*3/uL (1.2-4.9); Lymphocytes Percent Auto 9.8 % (20-40); Mean Corpuscular HGB Conc 32.3 g/dl (31.0-35.0); Mean Corpuscular Hemoglobin 29.2 pg (27.0-33.0); Mean Corpuscular Volume 90.3 fL (80-98); Mean Platelet Volume 10.5 fL (9.4-12.3); Monocytes Absolute Auto 0.6 X10*3/uL (0.1-1.2); Monocytes Percent Auto 6.7 % (2-11); Neutrophils Absolute Auto 7.7 X10*3/uL (2.0-8.3); Neutrophils Percent Auto 83.1 % (45-73); Platelet Count 206 X10*3/uL (160-400); Red Blood Count 2.98 X10*6/uL (4.20-5.50); White Blood Count 9.3 X10*3/uL (4.8-10.8)
[2020-02-06 07:05] LABS: Anion Gap 18 (12-20); Blood Urea Nitrogen 22 mg/dL (9-16); Calcium 8.5 mg/dL (8.4-10.2); Carbon Dioxide 17 mmol/L (22-29); Chloride 106 mmol/L (96-108); Creatinine Clr Calc Pharmacy 30.9; Estimated Glomerular Filt Rate 37; Glucose Random 250 mg/dL (60-115); Potassium 3.9 mmol/l (3.3-5.1); Sodium 137 mmol/L (135-145)
[2020-02-06 07:15] LABS: Glucose, Whole Blood 185 mg/dL (60-115)
[2020-02-06] MEDS: Clopidogrel Bisulfate 75 MG TABLET PO (08:20)
[2020-02-06] MEDS: Omeprazole 20 MG CAPSULE.DR PO (08:20)
[2020-02-06] MEDS: Cholecalciferol (Vitamin D3) 25 MCG TABLET 50 MCG PO (08:20)
[2020-02-06 10:59] VITALS: BP 135/68; PULSE 94; RESP 20; TEMP 36.6; O2SAT 99
[2020-02-06 11:29] LABS: Glucose, Whole Blood 269 mg/dL (60-115)
--- NOTE | 2020-02-06 12:12 | HO.PM.IMPN ---
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 denies any complaints wants to go home ROS denies fevers denies urinary complaints Physical Exam Vital Signs: Vital Signs: Last Vital Signs Temp 98 F 02/06/20 10:59 Pulse 94 02/06/20 10:59 Resp 20 02/06/20 10:59 BP 135/68 02/06/20 10:59 Pulse Ox 99 02/06/20 10:59 Body Mass Index 30.9 Const: Other: General - no acute distress, appears comfortable Cardiovascular - regular rate and rhythm, S1-S2 Lungs - normal respiratory effort, clear to auscultation bilaterally, no wheezing Abdomen - soft, nontender, no rebound or guarding Extremities - no edema bilaterally Neuro - awake and alert, no focal deficits Objective Data Current Medications Generic Name Dose Route Start Last Admin Trade Name Freq PRN Reason Stop Dose Admin Acetaminophen 650 mg 02/06/20 02:19 Acetaminophen Supp 650 Mg Supp.Rect RI Q6H PRN Pain, Mild (Pain Scale 1-3) Clopidogrel Bisulfate 75 mg 02/06/20 09:00 02/06/20 08:20 Clopidogrel Bisulfate 75 Mg Tablet PO 75 mg DAILY [facility] Administration Clotrimazole 1 appl 02/06/20 02:19 02/06/20 03:28 Clotrimazole 1 % Vaginal Cream 45 Gm Tube VAGINAL Not Given BEDTIME [facility] Heparin Sodium (Porcine) 5,000 unit 02/06/20 06:00 02/06/20 05:48 Heparin Sodium,Porcine 5,000 Unit/Ml Vial SUBCUT 5,000 unit Q12H MICHAEL Administration Ceftriaxone Sodium 1 gm/ 50 mls @ 100 mls/hr 02/06/20 16:00 Sodium Chloride IV Q24H [facility] Insulin Human Lispro 0 unit 02/06/20 02:19 02/06/20 11:49 Insulin Lispro 100 Unit/Ml 3 Ml Vial SUBCUT 6 unit QIDACHS MICHAEL Administration Protocol Omeprazole 20 mg 02/06/20 09:00 02/06/20 08:20 Omeprazole 20 Mg Capsule.Dr PO 20 mg DAILY MICHAEL Administration Ondansetron HCl 4 mg 02/06/20 02:19 Ondansetron Hcl 4 Mg/2 Ml Vial IVPUSH Q8H PRN Nausea and Vomiting Pharmacy Consult 1 each 02/05/20 16:06 Consult Rx Perform Med Rec MISCELLANE 02/07/20 16:05 ONCE PRN Consult order Sodium Chloride 3 ml 02/06/20 02:19 02/06/20 08:20 0.9 % Sodium Chloride Flush 3 Ml Syringe IVFLUSH 3 ml QSHIFT MICHAEL Administration Vitamin D 50 mcg 02/06/20 09:00 02/06/20 08:20 Cholecalciferol (Vitamin D3) 25 Mcg Tablet PO 50 mcg DAILY MICHAEL Administration Labs CBC & Chem 7: 02/06/20 05:18 02/06/20 05:18 Assessment and Plan (1) Gram-negative bacteremia: Status: Acute Assessment and Plan: This is a 69 yo F with a history of uncontrolled DM, RTA type 4, recurrent UTIs who was in the ED a several days back where she was diagnosed with a UTI and send home on levaquin. Her blood cultures drawn then were positive in 1/2 bottles for GNB. She was brought back in my the mother for reported fevers and is admitted for bacteremia secondary to uti. 1. Gram neg bacteremia likely due to UTI cultures from 02/04/2020 showing 1/2 bottles +, C&S pending continue rocephin f/u c&s and change antiboitics as needed being followed in the urology clinic for recurrent UTI 2. DM, uncontrolled currently on sliding scale unclear what her home regime is -- med rec to be updated for now, contineu sliding scale and add oters pending med rec completion 3. 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 Hypothyroism listed on history continue synthroid once dose known Full Code DVT pptx, subcut. heparin
--- NOTE | 2020-02-06 12:30 | MHC.CM.PN ---
CM MET WITH PT WITH THE ASSISTANCE OF A ZIPPER SETTER. PT REPORTS SHE LIVES AT HOME WITH HER S/O AND HER DAUGHTER. 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 PT USES A ROLLATOR TO AMBULATE. PCP AND HCP ARE ON FILE. CURRENT DC PLAN IS HOME WITH RESUMPTION OF CARE. PTS FAMILY WILL TRANSPORT
[2020-02-06] MEDS: Lactated Ringers 1,000 ML 80 ML IVCONT (12:35)
[2020-02-06 15:10] VITALS: BP 157/69; PULSE 105; RESP 18; TEMP 37.6; O2SAT 99
[2020-02-06] MEDS: cefTRIAXone sodium 1 GM in 0.9 % Sodium Chloride 50 ML IV (15:53)
[2020-02-06 16:23] LABS: Glucose, Whole Blood 367 mg/dL (60-115)
[2020-02-06 19:04] VITALS: BP 129/64; PULSE 114; RESP 18; TEMP 37.4; O2SAT 98
[2020-02-06] MEDS: Clotrimazole 1 % Vaginal Cream 45 GM TUBE 1 APPL VAGINAL (20:46)
[2020-02-06 20:47] LABS: Glucose, Whole Blood 291 mg/dL (60-115)
[2020-02-07] VITALS: BP 101/54; PULSE 89; RESP 16; TEMP 36.9; O2SAT 98
[2020-02-07] MEDS: Lactated Ringers 1,000 ML 80 ML IVCONT (02:13)
[2020-02-07] MEDS: 0.9 % Sodium Chloride Flush 3 ML SYRINGE IVFLUSH (02:14)
[2020-02-07] MEDS: Heparin Sodium,Porcine 5,000 UNIT/ML VIAL 5000 UNIT SUBCUT (05:15)
[2020-02-07 07:30] VITALS: BP 135/62; PULSE 91; RESP 18; TEMP 36.1; O2SAT 98
[2020-02-07 07:55] LABS: Glucose, Whole Blood 227 mg/dL (60-115)
[2020-02-07] MEDS: Cholecalciferol (Vitamin D3) 25 MCG TABLET 50 MCG PO (08:24)
[2020-02-07] MEDS: Omeprazole 20 MG CAPSULE.DR PO (08:25)
[2020-02-07] MEDS: Clopidogrel Bisulfate 75 MG TABLET PO (08:25)
[2020-02-07] MEDS: Insulin Lispro 100 UNIT/ML 3 ML VIAL SUBCUT ×2 (08:26→11:55)
[2020-02-07 11:07] LABS: Glucose, Whole Blood 381 mg/dL (60-115)
--- NOTE | 2020-02-07 11:21 | PM.DS ---
DS: Providers Provider Date of admission: 02/05/20 19:52 Primary care physician: Kimi Patino MD DS: Diagnosis Discharge Diagnosis (1) Gram-negative bacteremia: Status: Acute DS: Medications Discharge Medications Home Medications: Home Medications Medication Instructions Recorded Confirmed atorvastatin 40 mg tablet 40 mg PO DAILY 01/13/20 02/05/20 dulaglutide 0.75 mg/0.5 mL 0.75 mg SUBCUT QWEEK 01/13/20 02/05/20 subcutaneous pen injector famotidine 20 mg tablet 20 mg PO BEDTIME 01/13/20 02/05/20 furosemide 20 mg tablet 10 mg PO DAILY tab 01/13/20 02/05/20 insulin aspart U-100 100 unit/mL 15 unit SUBCUT TID 01/13/20 (3 mL) subcutaneous pen insulin degludec 100 unit/mL (3 30 unit SUBCUT DAILY ml 01/13/20 mL) subcutaneous pen levothyroxine 100 mcg tablet 100 mcg PO DAILY 01/13/20 02/05/20 metoprolol succinate 25 mg 12.5 mg PO BID 01/13/20 02/05/20 tablet,extended release 24 hr insulin asp prt-insulin aspart SUBCUT TIDAC 02/05/20 [Novolog Mix 70-30FlexPen U-100] Previous Rx's Medication Instructions Recorded clotrimazole 1 % vaginal cream 1 appful VAGINAL BEDTIME 7 Days 12/15/19 #45 g pen needle, diabetic 32 gauge x #60 ea 12/27/19 omeprazole 20 mg capsule,delayed 20 mg PO QAM #90 cap 01/10/20 release clopidogrel 75 mg tablet 75 mg PO DAILY 90 Days #90 tab 01/11/20 cholecalciferol (vitamin D3) 50 50 mcg PO DAILY 30 Days #30 cap 01/31/20 mcg (2,000 unit) capsule insulin aspar prot-insulin aspart 30 unit SUBCUT BID 30 Days #30 ml 01/31/20 100 unit/mL (70-30) subcutaneous pen levofloxacin 500 mg PO Q24H #7 tab 02/07/20 DS: Summary Hospital Course Hospital Course: patient was admitted for bacteremia, likely urinary source. Her urine culture grew Klebsiella and E coli, and her blood culture grew Klebsiella. These were sensitive to Ceftriaxone and Levaquin. She had no more symptoms of sepsis. She received ceftriaxone in hospital will be discharged on 7 more days of p.o. Levaquin. Time Spent with Patient Time attestation: Total time spent providing and/or coordinating discharge services: Physical Exam Vital Signs: Vital Signs: Last Vital Signs Temp 97.0 F 02/07/20 07:30 Pulse 91 02/07/20 07:30 Resp 18 02/07/20 07:30 BP 135/62 02/07/20 07:30 Pulse Ox 98 02/07/20 07:30 Body Mass Index 30.9 General: AO X 3, no acute distress Resp: CTA bilateral CVS: S1,S2,RRR GI: soft, non tender, non distended Neuro: motor grossly intact Psych: appropriate affect DS: Data Data Completed and Pending Labs on day of discharge: 02/05/20 16:06 IV insert/maintain .Now 02/05/20 16:19 cefTRIAXone sodium [Rocephin] 1 gm 0.9 % Sodium Chloride [Ns] 50 ml IV ONCE 02/05/20 16:45 Basic Metabolic Panel Stat COVID-19 ID NOW ([place]) Stat Complete Blood Count Auto Diff Stat Lactic Acid Stat Liver Panel Stat 02/05/20 16:50 cefTRIAXone sodium [Rocephin] 1 gm .ROUTE .STK-MED ONE 02/05/20 18:06 0.9 % Sodium Chloride [Ns] 1,000 ml IV 999 mls/hr Insulin Regular, Human [Humulin R] 5 unit IVPUSH ONCE ONE 02/05/20 18:55 Transfer Order Routine 02/06/20 02:32 Glucose, Whole Blood Routine 02/06/20 05:18 Basic Metabolic Panel DAILY@0600 Complete Blood Count Auto Diff DAILY@0600 02/06/20 07:07 Glucose, Whole Blood Routine 02/06/20 11:21 Glucose, Whole Blood Routine 02/06/20 15:12 Glucose, Whole Blood Routine 02/06/20 15:45 cefTRIAXone sodium [Rocephin] 1 gm .ROUTE .STK-MED ONE 02/06/20 20:39 Glucose, Whole Blood Routine 02/07/20 07:26 Glucose, Whole Blood Routine 02/07/20 10:51 Glucose, Whole Blood Routine Laboratory Last Values WBC 9.3 X10*3/uL (4.8-10.8) 02/06/20 05:18 RBC 2.98 X10*6/uL (4.20-5.50) L 02/06/20 05:18 Hgb 8.7 g/dl (12.0-16.0) L 02/06/20 05:18 Hct 26.9 % (37-47) L 02/06/20 05:18 MCV 90.3 fL (80-98) 02/06/20 05:18 MCH 29.2 pg (27.0-33.0) 02/06/20 05:18 MCHC 32.3 g/dl (31.0-35.0) 02/06/20 05:18 RDW 13.0 % (11.0-16.0) 02/06/20 05:18 Plt Count 206 X10*3/uL (160-400) 02/06/20 05:18 MPV 10.5 fL (9.4-12.3) 02/06/20 05:18 Immature Gran % (Auto) 0.3 % (0.0-0.4) 02/06/20 05:18 Neut % (Auto) 83.1 % (45-73) H 02/06/20 05:18 Lymph % (Auto) 9.8 % (20-40) L 02/06/20 05:18 [place] % (Auto) 6.7 % (2-11) 02/06/20 05:18 Eos % (Auto) 0.0 % (0-4) 02/06/20 05:18 Baso % (Auto) 0.1 % (0-2) 02/06/20 05:18 Lymph # (Auto) 0.9 X10*3/uL (1.2-4.9) L 02/06/20 05:18 [place] # (Auto) 0.6 X10*3/uL (0.1-1.2) 02/06/20 05:18 Eos # (Auto) 0.0 X10*3/uL (0.0-0.4) 02/06/20 05:18 Baso # (Auto) 0.0 X10*3/uL (0.0-0.2) 02/06/20 05:18 Abs Immat Gran (auto) 0.03 X10*3/uL (0.00-0.03) 02/06/20 05:18 Absolute Neuts (auto) 7.7 X10*3/uL (2.0-8.3) 02/06/20 05:18 Absolute Nucleated RBC 0.000 X10*3/uL (0.0-0.012) 02/06/20 05:18 Nucleated RBC % (auto) 0.0 /100WBC (0.0-0.2) 02/06/20 05:18 Sodium 137 mmol/L (135-145) 02/06/20 05:18 Potassium 3.9 mmol/l (3.3-5.1) 02/06/20 05:18 Chloride 106 mmol/L (96-108) 02/06/20 05:18 Carbon Dioxide 17 mmol/L (22-29) L 02/06/20 05:18 Anion Gap 18 (-20) 02/06/20 05:18 BUN 22 mg/dL (9-16) H 02/06/20 05:18 Creatinine 1.43 mg/dL (0.5-1.4) H 02/06/20 05:18 Estim Creat Clear Calc 30.9 02/06/20 05:18 Estimated GFR 37 02/06/20 05:18 POC Glucose 381 mg/dL (60-115) H* 02/07/20 10:51 Random Glucose 250 mg/dL (60-115) H D 02/06/20 05:18 Lactic Acid 1.3 mmol/L (0.5-2.0) 02/05/20 16:45 Calcium 8.5 mg/dL (8.4-10.2) 02/06/20 05:18 Total Bilirubin 0.5 mg/dL (0.0-1.0) 02/05/20 16:45 Direct Bilirubin 0.3 mg/dL (0.0-0.5) 02/05/20 16:45 AST 31 U/L (5-31) 02/05/20 16:45 ALT 28 U/L (0-31) 02/05/20 16:45 Alkaline Phosphatase 139 U/L (39-117) H D 02/05/20 16:45 Total Protein 6.9 g/dL (6.5-8.0) 02/05/20 16:45 Albumin 3.5 g/dL (3.5-5.0) 02/05/20 16:45 Urine Color YELLOW 02/05/20 16:57 Urine Appearance HAZY 02/05/20 16:57 Urine pH 6.0 (5.0-8.0) 02/05/20 16:57 Ur Specific [place] 1.010 (1.005-1.025) 02/05/20 16:57 Urine Protein TRACE MG/DL (NEG-TRACE) 02/05/20 16:57 Urine Glucose (UA) >=1000 MG/DL (NEG) H 02/05/20 16:57 Urine Ketones NEG MG/DL (NEG) 02/05/20 16:57 Urine Blood 3+ (NEG) H 02/05/20 16:57 Urine Nitrite NEG (NEG) 02/05/20 16:57 Ur Leukocyte Esterase NEG (NEG) 02/05/20 16:57 Urine RBC TNTC /HPF (0) H 02/05/20 16:57 Urine WBC 1-4 /HPF (0-4) 02/05/20 16:57 Ur Squamous Epith Cells 2+ /LPF 02/05/20 16:57 Urine Bacteria NONE /LPF 02/05/20 16:57 COVID-19 (MAKI) Negative (Negative) 02/05/20 16:45 COVID-19 Clin Com See Note 02/05/20 16:45 Preliminary micro results at discharge 02/05/20 16:45 Blood Culture - Preliminary Blood - Venous No growth after 24 hours. 02/05/20 16:45 Blood Culture - Preliminary Blood - Venous No growth after 24 hours. Discharge Plan Discharge Patient Disposition: Home, Self-Care Referrals: Kimi Patino MD [Primary Care Provider] - Discharge Medications: Continued clotrimazole [Gyne-Lotrimin 7] 1 % cream 1 appful vaginal BEDTIME 7 Days Qty: 45 RF: 1 (DME) pen needle, diabetic [BD Denisa 2nd Gen Pen Needle] 32 gauge x 5/32 needle See Rx Instructions .MEDSUPPLY Qty: 60 RF: 6 omeprazole 20 mg capsule,delayed release(DR/EC) 20 mg PO QAM Qty: 90 RF: 0 clopidogrel 75 mg tablet 75 mg PO DAILY 90 Days Qty: 90 RF: 0 insulin asp prt-insulin aspart [Novolog Mix 70-30FlexPen U-100] 100 unit/mL (70-30) insulin pen 30 unit subcut BID 30 Days Qty: 30 RF: 5 cholecalciferol (vitamin D3) 50 mcg (2,000 unit) capsule 50 mcg PO DAILY 30 Days Qty: 30 RF: 7 insulin asp prt-insulin aspart [Novolog Mix 70-30FlexPen U-100] 100 unit/mL (70-30) insulin pen subcut TIDAC RF: 0 levofloxacin 500 mg tablet 500 mg PO Q24H Qty: 7 RF: 0 Discharge Orders: Discharge Order (Routine); Ordered 02/07/20 Ordered By: Shaheen Cruz Activity on Discharge: As tolerated Visit Report Forms: Patient Portal Discharge page Care Plan Goals: [facility] Concerns: bacteremia Plan of Treatment: 7 more days of levaquin
--- NOTE | 2020-02-07 11:31 | MHC.CM.PN ---
PATIENT IS DISCHARGED HOME - SELF CARE. RN AWARE OF PLAN.
[2020-02-07 16:16] LABS: Glucose, Whole Blood 263 mg/dL (60-115)
== END 2020-02-07 13:49 | disposition home or self-care (01) | DRG 690 ==
LOC: HO.ED 16:19 → HO.S3 20:26 → HO.IMC 23:29 → HO.S3 02-06 19:58
PROVIDERS: Family Medicine; Nurse Practitioner Acute Care; Nurse Practitioner Family; Admitting Provider Internal Medicine; Emergency Provider Emergency Medicine Emergency Medical Services; PCP Internal Medicine; Visit Provider Internal Medicine
DX: N39.0 Urinary tract infection, site not specified (principal); R78.81 Bacteremia; N18.4 Chronic kidney disease, stage 4 (severe); N17.9 Acute kidney failure, unspecified; E03.9 Hypothyroidism, unspecified; K21.9 Gastro-esophageal reflux disease without esophagitis; E78.5 Hyperlipidemia, unspecified; I12.9 Hypertensive chronic kidney disease with stage 1 through stage 4 chronic kidney disease, or unspecified chronic kidney disease; E11.22 Type 2 diabetes mellitus with diabetic chronic kidney disease; E11.65 Type 2 diabetes mellitus with hyperglycemia; B96.20 Unspecified Escherichia coli [E. coli] as the cause of diseases classified elsewhere; D50.9 Iron deficiency anemia, unspecified; B96.1 Klebsiella pneumoniae [K. pneumoniae] as the cause of diseases classified elsewhere; Z86.73 Personal history of transient ischemic attack (TIA), and cerebral infarction without residual deficits; Z88.0 Allergy status to penicillin; Z88.6 Allergy status to analgesic agent; Z20.828 Contact with and (suspected) exposure to other viral communicable diseases; Z79.4 Long term (current) 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; Z79.02 Long term (current) use of antithrombotics/antiplatelets; Z79.890 Hormone replacement therapy; Z79.899 Other long term (current) drug therapy
CPT/HCPCS: 0241U; 36415; 71045; 80048; 80076; 81001; 82009; 82947; 83605; 83735; 85025; 87040; 87077; 87086; 87088; 87186; 87635; 93005; 96361; 96365; 96372; 96375; 99284; 99285; J0696

== ENCOUNTER → 2020-02-22 14:55 | Outpatient (BNV) | payer MEDICARE, MEDICAID, SELFPAY | PROVIDERS: PCP Internal Medicine; Visit Provider Internal Medicine | DX: D50.9 Iron deficiency anemia, unspecified (principal) | CPT/HCPCS: 99213; 99214; 99442 ==

== ENCOUNTER → 2020-03-07 15:28 | Outpatient (BNVA) | payer MEDICARE, MEDICAID, SELFPAY | PROVIDERS: PCP Internal Medicine; Referring Provider Internal Medicine; Visit Provider Internal Medicine Endocrinology, Diabetes & Metabolism | DX: Z13.89 Encounter for screening for other disorder (principal) | CPT/HCPCS: Q3014 ==

== ENCOUNTER 2020-03-21 10:05 | Outpatient (REF) | payer MEDICARE, MEDICAID, SELFPAY ==
--- NOTE | 2020-03-21 10:07 | MR_ITS ---
EXAMINATION: MR BRAIN WITHOUT CONTRAST MR ANGIOGRAPHY OF THE HEAD WITHOUT CONTRAST CLINICAL INFORMATION: nerve palsy. Assess for aneurysm. The patient states right eye symptoms and history of stroke. COMPARISON: There are no prior studies available for comparison at time of dictation. TECHNIQUE: Multiplanar, multisequence imaging of the brain was obtained without contrast. 3-D [id number] MR angiography was performed. The degree of stenosis is based off NASCET criteria. Multiple 3-D reformatted images were processed on the technologist workstation. FINDINGS: MRI BRAIN: No diffusion abnormalities are identified to suggest an acute or subacute infarct. There is mild commensurate prominence of the ventricles and sulci consistent with diffuse volume loss. There is mild ex-vacuo dilatation of the trigone of the right lateral ventricle adjacent to an area of gliosis and encephalomalacia; these findings are consistent with sequelae of a chronic infarct in the right frontal and parietal lobes. No mass effect or midline shift is seen. Elsewhere, there are scattered areas of increased T2 and FLAIR signal consistent with sequelae of chronic microvascular ischemic disease. No extra-axial fluid collections are seen. The brainstem and cerebellum are normal. No pathologic magnetic susceptibility artifact is identified on the gradient refocused acquisition. The craniovertebral junction, marrow signal, and midline structures are normal; there is an incidental empty sella. The major intracranial flow-voids at the level of the [place] are preserved. The dural venous sinus flow-voids are maintained. There have been bilateral lens extractions. The mastoid air cells are well-aerated. There is mild mucoperiosteal thickening in the bilateral maxillary and ethmoid sinuses. MRA HEAD: In the anterior circulation, the distal internal carotid arteries within the neck appear normal. The intracranial internal carotid arteries and their bifurcations appear normal. The A1 segment of the left anterior cerebral artery is and, and has slightly irregular caliber. The A2 segment is patent with normal caliber. The bilateral middle and right anterior cerebral arteries demonstrate normal caliber with no evidence of focal stenosis, aneurysm or vascular malformation. The anterior communicating artery is normal. In the posterior circulation, the left vertebral artery is slightly dominant. The vertebral arteries intradurally have uniform caliber. The basilar artery appears normal. The posterior cerebral arteries have normal caliber. The posterior cerebral arteries are patent. There is moderate irregular caliber of the P2 segment of the left posterior cerebral artery. MR/MR head/brain wo con IMPRESSION: MRI brain: 1. There are no acute bleeds or territorial infarcts. No masses are demonstrated. 2. There are sequelae of a chronic infarct in the right parietal and temporal lobes. There are chronic microvascular ischemic changes and there is diffuse volume loss. MRA head: 1. No aneurysms are demonstrated. 2. There is irregular caliber of vessels in the left anterior and posterior circulations as described above, without evidence of focal stenosis/occlusion or vascular malformation.
--- NOTE | 2020-03-21 10:10 | MR_ITS ---
EXAMINATION: MR BRAIN WITHOUT CONTRAST MR ANGIOGRAPHY OF THE HEAD WITHOUT CONTRAST CLINICAL INFORMATION: nerve palsy. Assess for aneurysm. The patient states right eye symptoms and history of stroke. COMPARISON: There are no prior studies available for comparison at time of dictation. TECHNIQUE: Multiplanar, multisequence imaging of the brain was obtained without contrast. 3-D [id number] MR angiography was performed. The degree of stenosis is based off NASCET criteria. Multiple 3-D reformatted images were processed on the technologist workstation. FINDINGS: MRI BRAIN: No diffusion abnormalities are identified to suggest an acute or subacute infarct. There is mild commensurate prominence of the ventricles and sulci consistent with diffuse volume loss. There is mild ex-vacuo dilatation of the trigone of the right lateral ventricle adjacent to an area of gliosis and encephalomalacia; these findings are consistent with sequelae of a chronic infarct in the right frontal and parietal lobes. No mass effect or midline shift is seen. Elsewhere, there are scattered areas of increased T2 and FLAIR signal consistent with sequelae of chronic microvascular ischemic disease. No extra-axial fluid collections are seen. The brainstem and cerebellum are normal. No pathologic magnetic susceptibility artifact is identified on the gradient refocused acquisition. The craniovertebral junction, marrow signal, and midline structures are normal; there is an incidental empty sella. The major intracranial flow-voids at the level of the [place] are preserved. The dural venous sinus flow-voids are maintained. There have been bilateral lens extractions. The mastoid air cells are well-aerated. There is mild mucoperiosteal thickening in the bilateral maxillary and ethmoid sinuses. MRA HEAD: In the anterior circulation, the distal internal carotid arteries within the neck appear normal. The intracranial internal carotid arteries and their bifurcations appear normal. The A1 segment of the left anterior cerebral artery is and, and has slightly irregular caliber. The A2 segment is patent with normal caliber. The bilateral middle and right anterior cerebral arteries demonstrate normal caliber with no evidence of focal stenosis, aneurysm or vascular malformation. The anterior communicating artery is normal. In the posterior circulation, the left vertebral artery is slightly dominant. The vertebral arteries intradurally have uniform caliber. The basilar artery appears normal. The posterior cerebral arteries have normal caliber. The posterior cerebral arteries are patent. There is moderate irregular caliber of the P2 segment of the left posterior cerebral artery. MR/MR angio head wo con IMPRESSION: MRI brain: 1. There are no acute bleeds or territorial infarcts. No masses are demonstrated. 2. There are sequelae of a chronic infarct in the right parietal and temporal lobes. There are chronic microvascular ischemic changes and there is diffuse volume loss. MRA head: 1. No aneurysms are demonstrated. 2. There is irregular caliber of vessels in the left anterior and posterior circulations as described above, without evidence of focal stenosis/occlusion or vascular malformation.
== END 2020-03-21 10:06 | disposition home or self-care (01) ==
LOC: HO.MRI 10:05
PROVIDERS: Visit Provider Psychiatry & Neurology Neurology
DX: G52.9 Cranial nerve disorder, unspecified (principal)
CPT/HCPCS: 70544; 70551

== ENCOUNTER → 2020-04-25 07:31 | Outpatient (BNVA) | payer MEDICARE, MEDICAID, SELFPAY | PROVIDERS: PCP Internal Medicine; Visit Provider Nurse Practitioner Gerontology | DX: E11.65 Type 2 diabetes mellitus with hyperglycemia (principal); E11.42 Type 2 diabetes mellitus with diabetic polyneuropathy; E11.22 Type 2 diabetes mellitus with diabetic chronic kidney disease; I12.9 Hypertensive chronic kidney disease with stage 1 through stage 4 chronic kidney disease, or unspecified chronic kidney disease; N18.30 Chronic kidney disease, stage 3 unspecified; Z79.4 Long term (current) 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; E78.2 Mixed hyperlipidemia; E03.9 Hypothyroidism, unspecified; E55.9 Vitamin D deficiency, unspecified | CPT/HCPCS: 82947; 99212 ==

== ENCOUNTER 2020-04-28 07:22 | Outpatient (REF) | payer MEDICARE, MEDICAID, SELFPAY ==
[2020-04-28 08:20] LABS: MANUAL DIFF FLAG NO
[2020-04-28 08:30] LABS: Basophils Percent Auto 0.4 % (0-2); Eosinophils Absolute Auto 0.1 X10*3/uL (0.0-0.4); Eosinophils Percent Auto 0.9 % (0-4); Hematocrit 32.7 % (37-47); Hemoglobin 10.4 g/dl (12.0-16.0); Imm Gran Abs Auto 0.02 X10*3/uL (0.00-0.03); Imm Gran Pct Auto 0.4 % (0.0-0.4); Lymphocytes Absolute Auto 1.6 X10*3/uL (1.2-4.9); Lymphocytes Percent Auto 28.5 % (20-40); Mean Corpuscular HGB Conc 31.8 g/dl (31.0-35.0); Mean Corpuscular Volume 88.1 fL (80-98); Mean Platelet Volume 10.4 fL (9.4-12.3); Monocytes Absolute Auto 0.5 X10*3/uL (0.1-1.2); Monocytes Percent Auto 8.5 % (2-11); Neutrophils Absolute Auto 3.4 X10*3/uL (2.0-8.3); Neutrophils Percent Auto 61.3 % (45-73); Platelet Count 311 X10*3/uL (160-400); Red Blood Count 3.71 X10*6/uL (4.20-5.50); Red Cell Distribution Width 15.2 % (11.0-16.0); White Blood Count 5.5 X10*3/uL (4.8-10.8)
[2020-04-28 09:04] LABS: Creatinine Urine 49.03 mg/dL; Microalbum/Creatinine Ratio Ur 185.6 ug/mg cr
[2020-04-28 09:06] LABS: Alanine Aminotransferase 34 U/L (0-31); Albumin Level 4.1 g/dL (3.5-5.0); Alkaline Phosphatase 223 U/L (39-117); Anion Gap 16 (12-20); Aspartate Amino Transferase 32 U/L (5-31); Bilirubin Total 0.5 mg/dL (0.0-1.0); Blood Urea Nitrogen 32 mg/dL (9-16); Calcium 9.5 mg/dL (8.4-10.2); Carbon Dioxide 23 mmol/L (22-29); Chloride 95 mmol/L (96-108); Cholesterol 145 mg/dL; Estimated Glomerular Filt Rate 26; HDL Cholesterol 49 mg/dL; LDL Cholesterol Calculated 71 mg/dl; Potassium 5.3 mmol/L (3.3-5.1); Sodium 129 mmol/L (135-145); Total Protein 8.3 g/dL (6.5-8.0); Triglycerides 125 mg/dL
[2020-04-28 09:08] LABS: Glucose Fasting 531 mg/dL (60-99)
[2020-04-28 09:13] LABS: Free T4 (Free Thyroxine) 1.06 ng/dL (0.71-1.85)
[2020-04-28 09:18] LABS: Thyroid Stimulating Hormone 3.08 uIU/mL (0.32-4.0)
[2020-04-28 09:49] LABS: Vitamin B12 > 2000 pg/mL (200-900)
[2020-04-30 00:22] LABS: LDL Cholesterol Direct 70 mg/dL (<100)
== END 2020-04-28 07:23 | disposition home or self-care (01) ==
LOC: HO.LAB 07:22
PROVIDERS: Absent Provider Internal Medicine; PCP Internal Medicine; Visit Provider Internal Medicine Endocrinology, Diabetes & Metabolism
DX: D50.9 Iron deficiency anemia, unspecified (principal); E11.65 Type 2 diabetes mellitus with hyperglycemia
CPT/HCPCS: 36415; 80053; 80061; 82043; 82607; 83721; 84439; 84443; 85025

== ENCOUNTER → 2020-05-23 07:35 | Outpatient (BNVA) | payer MEDICARE, MEDICAID, SELFPAY | PROVIDERS: PCP Internal Medicine; Visit Provider Nurse Practitioner Gerontology | DX: E11.65 Type 2 diabetes mellitus with hyperglycemia (principal); E11.42 Type 2 diabetes mellitus with diabetic polyneuropathy; E11.22 Type 2 diabetes mellitus with diabetic chronic kidney disease; I12.9 Hypertensive chronic kidney disease with stage 1 through stage 4 chronic kidney disease, or unspecified chronic kidney disease; N18.30 Chronic kidney disease, stage 3 unspecified; Z79.4 Long term (current) 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; E78.2 Mixed hyperlipidemia; I10 Essential (primary) hypertension; E03.9 Hypothyroidism, unspecified; E55.9 Vitamin D deficiency, unspecified | CPT/HCPCS: 82947; 99212 ==

== ENCOUNTER → 2020-06-02 09:44 | Outpatient (BNVA) | payer MEDICARE, MEDICAID, SELFPAY | PROVIDERS: PCP Internal Medicine; Visit Provider Dietitian, Registered | DX: E11.22 Type 2 diabetes mellitus with diabetic chronic kidney disease (principal); N18.30 Chronic kidney disease, stage 3 unspecified | CPT/HCPCS: 97802 ==

== ENCOUNTER → 2020-07-12 10:12 | Outpatient (BNVA) | payer MEDICARE, MEDICAID, SELFPAY | PROVIDERS: PCP Internal Medicine; Visit Provider Urology | DX: E11.42 Type 2 diabetes mellitus with diabetic polyneuropathy (principal); N39.0 Urinary tract infection, site not specified | CPT/HCPCS: 81002; 99212 ==

== ENCOUNTER → 2020-07-14 11:28 | Outpatient (BNVA) | payer MEDICARE, MEDICAID, SELFPAY | PROVIDERS: PCP Internal Medicine; Visit Provider Dietitian, Registered | DX: E11.22 Type 2 diabetes mellitus with diabetic chronic kidney disease (principal); N18.30 Chronic kidney disease, stage 3 unspecified | CPT/HCPCS: 97803 ==

== ENCOUNTER → 2020-07-20 11:24 | Outpatient (BNVA) | payer MEDICARE, MEDICAID, SELFPAY | PROVIDERS: PCP Internal Medicine; Visit Provider Nurse Practitioner Gerontology | DX: E11.65 Type 2 diabetes mellitus with hyperglycemia (principal); E11.42 Type 2 diabetes mellitus with diabetic polyneuropathy; E11.22 Type 2 diabetes mellitus with diabetic chronic kidney disease; I12.9 Hypertensive chronic kidney disease with stage 1 through stage 4 chronic kidney disease, or unspecified chronic kidney disease; N18.30 Chronic kidney disease, stage 3 unspecified; E78.2 Mixed hyperlipidemia; E03.9 Hypothyroidism, unspecified; E55.9 Vitamin D deficiency, unspecified; Z79.4 Long term (current) 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 | CPT/HCPCS: 82947; 99212 ==

== ENCOUNTER 2020-07-22 17:20 | Inpatient (IN) | payer MEDICARE, MEDICAID, SELFPAY ==
[2020-07-22] VITALS (8 sets, daily range): BP systolic 93–136; BP diastolic 35–56; PULSE 85–115; RESP 18–24; TEMP 37.5–40.2; O2SAT 95–99; BMI 33.0
--- NOTE | ~2020-07-22 | XR_ITS ---
EXAMINATION: XR CHEST CLINICAL INFORMATION: Fever COMPARISON: 02/04/20 TECHNIQUE: Upright frontal portable view of the chest was obtained. FINDINGS: There is rotation to the right. Devices overlie the patient. There is kyphosis. No mediastinal or hilar mass. There is hypoinflation. There is no dense area of consolidation or major zone of atelectasis. There is no alveolar edema. No pleural fluid or pneumothorax. 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 No definite evidence of pneumoperitoneum. XR/XR chest 1V IMPRESSION: Hypoinflation. No dense consolidation or edema.
--- NOTE | ~2020-07-22 | CT_ITS ---
EXAMINATION: CT ABDOMEN AND PELVIS WITHOUT CONTRAST CLINICAL INFORMATION: Fever 104. Urosepsis. Evaluate for abscess. COMPARISON: Portions of a previous CT 02/23/16 TECHNIQUE: Multidetector volumetric imaging was performed from the superior aspect of the liver through the pubic symphysis. Sagittal and coronal reformatted images were obtained on the technologist's workstation. This CT examination was performed using dose optimization techniques as appropriate, variously including the following: *Automated exposure control *Adjustment of mA and/or kV according to patient size (this includes techniques or standardized protocols for targeted exams where dose is matched to indication/reason for exam; i.e. extremities or head) *Use of iterative reconstruction technique DLP: 622 mGy-cm FINDINGS: LUNG BASES: Coronary calcification there are nonspecific lung base opacities which could reflect some small airways disease and perhaps some mild fibrosis. Motion limits detail. LIVER, GALLBLADDER, AND BILIARY TREE: No suspicious focal liver lesion. Coarse calcification associated with the fundus of the gallbladder is unchanged. No biliary dilation. PANCREAS: Nearly complete fatty replacement. No suspicious mass. SPLEEN: No definite abnormality ADRENAL GLANDS: No suspicious abnormality KIDNEYS AND URETERS: There is mild to moderate dilation of the intrarenal collecting system and mild dilation of both ureters to the level of the ureterovesical junction without a ureteral calculus. There is no evidence of perinephric abscess. No suspicious renal mass demonstrated BLADDER: The urinary bladder is distended. No suspicious focal abnormality. GASTROINTESTINAL TRACT: No localized colonic wall thickening or pericolonic fat stranding. No significant dilation of the small bowel. The stomach is nearly collapsed. ABDOMINAL WALL: No significant hernia is appreciated. LYMPH NODES: There are no enlarged abdominal or pelvic lymph nodes. There is no significant free intraperitoneal fluid. VASCULAR: There is atherosclerotic calcification. There is no abdominal aortic aneurysm. PELVIC VISCERA: The uterus is likely surgically absent. No suspicious adnexal mass or collection. There are probable calcifications in the expected region of the right ovary. OSSEOUS STRUCTURES: No focal abnormality. CT/CT abdomen pelvis wo con IMPRESSION: There is no evidence of a perinephric abscess. There is dilation of the urinary collecting system on each side to the level of the bladder. The bladder is mildly dilated. No obstructing calculus demonstrated. Unchanged coarse calcification associated with the gallbladder fundus.
[2020-07-22] MEDS: Acetaminophen 325 MG TABLET 975 MG PO (17:55)
--- NOTE | 2020-07-22 17:56 | ED_ITS ---
HPI - Fever General Chief Complaint: Fever Stated Complaint: Covid Symptoms Time Seen by Provider: 07/22/20 17:30 Source: patient and family Mode of arrival: ambulatory Limitations: language barrier History of Present Illness HPI Narrative: 70 y/o female with history of CKD, DM2 on insulin, hx CVA, urinary retention requiring straight catheterization at home, hx recurrent UTI with hx GNR bacteremia, recent hospitalization at [facility] for Urosepsis 06/30-07/02, presenting to the ER with new onset fever. Fever started this afternoon at home and was 102.3. Patient's daughter reports she also has a cough has been going on for months, but worse lately. It is dry without phlegm. Pat[place]gen has been complaining about being tired the last 3 days but the 1st time was had a fever was today. Patient was just seen by Dr. Zapata for f/u on her urosepsis - discharged with Vitamin C & methenamine for preventative measures. Daughter reports she started straight cathing her mom every evening. No cloudy urine or foul smelling urine. Patient reports some lower abdominal discomfort. No N/V/D. s/p 2nd Phizer vaccine on 07/16. MD elicited complaint: fever Pertinent past history: diabetes, sepsis and other (urosepsis w/ Klebsiella and E. coli) Onset (ago): hour(s) Measured temperature: 102.5 F Context: recent hospitalization Exacerbating factors: nothing Associated symptoms: abdominal pain Treatments prior to arrival fever: acetaminophen (patient initially told nursing she took motrin but daughter reports it was acetamenophen ) Related Data Home Medications Medication Instructions Recorded Confirmed metoprolol succinate 25 mg 12.5 mg PO BID 01/13/20 07/22/20 tablet,extended release 24 hr blood sugar diagnostic #10 ea 04/25/20 07/22/20 lancets 28 gauge #100 ea 04/25/20 07/22/20 levothyroxine 112 mcg tablet 112 mcg PO QAM 04/25/20 07/22/20 cephalexin 500 mg capsule 500 mg PO TID 07/12/20 07/22/20 gabapentin 300 mg capsule 300 mg PO BEDTIME 07/12/20 07/22/20 furosemide 20 mg tablet 20 mg PO DAILY tab 07/20/20 07/22/20 Previous Rx's Medication Instructions Recorded clotrimazole 1 % vaginal cream 1 appful VAGINAL BEDTIME 7 Days 12/15/19 #45 g pen needle, diabetic 32 gauge x #60 ea 12/27/19 cholecalciferol (vitamin D3) 50 50 mcg PO DAILY 30 Days #30 cap 01/31/20 mcg (2,000 unit) capsule cyanocobalamin (vitamin B-12) 1,000 mcg PO DAILY #90 tab 02/22/20 [Vitamin B-12] blood-glucose meter #1 ea 04/25/20 glucose 4 gram chewable tablet 12 g PO Q15M PRN #30 tab 04/25/20 walker with seat and breaks #1 ea 05/15/20 blood sugar diagnostic #100 ea 05/23/20 insulin aspar prot-insulin aspart See Rx Instructions SUBCUT BID 30 05/23/20 100 unit/mL (70-30) subcutaneous Days #30 ml pen Shower chair with arms #1 ea 06/16/20 raised toilet seat with arms #1 ea 06/16/20 clopidogrel 75 mg tablet 75 mg PO DAILY #90 tab 07/05/20 ascorbic acid (vitamin C) 1,000 mg 1 g PO DAILY 90 Days #90 tab 07/12/20 tablet atorvastatin 40 mg tablet 40 mg PO DAILY #90 tab 07/12/20 methenamine hippurate 1 gram tablet 1 g PO DAILY 90 Days #90 tab 07/12/20 omeprazole 20 mg capsule,delayed 20 mg PO QAM #90 cap 07/12/20 release Allergies Allergy/AdvReac Type Severity Reaction Status Date / Time aspirin [ASPIRIN] Allergy Severe SWELLING, Verified 07/22/20 17:43 swelling, rash fish derived [FISH] Allergy Mild RASH Verified 07/22/20 17:43 fish Allergy Unknown swelling Verified 07/22/20 17:43 Penicillins [PENICILLINS] Allergy Unknown SWELLING Verified 07/22/20 17:43 Review of Systems Review of Systems: Constitutional: + Fever, No Chills ENT/Mouth: No sore throat, No Rhinorrhea, No Swallowing Difficulty Eyes: No Eye Pain, No Swelling, No Redness Cardiovascular: No Chest Pain, No SOB, No Orthopnea, No Edema Respiratory: +Cough, No Sputum, No Wheezing, No dyspnea Gastrointestinal: No Nausea, No Vomiting, No Diarrhea, + abdominal Pain, No Hematochezia, No Melena Genitourinary: No Dysuria, No Urinary Frequency, No Hematuria Musculoskeletal: No joint pain, No Myalgias Skin: No Skin Lesions, No rash Neuro: + Weakness (generalized), No Numbness, No Dizziness, No Headache Psych: No Anxiety/Panic, No Depression Heme/Lymph: No Bruising, No Lymphadenopathy Endocrine: No Polyuria, No Polydipsia PMFSH Past Medical History Attestation statement: The following information was validated with the patient. 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 Renal tubular acidosis Subclinical hypothyroidism Vitamin D deficiency Yeast infection involving the vagina and surrounding area Surgical History H/O carotid endarterectomy History of cataract surgery History of hysterectomy Family History Family History Maternal Grandmother Pancreatic cancer Social History Social History Household Members: Spouse Housing: Apartment Alcohol intake: never Smoking Status: Never smoker Second Hand Smoke Exposure: No Use of substances other than those prescribed or required for medical reasons: No Advance Directives: No Advance Directives Information Provided: No service: No Current occupational status: unemployed Physical Exam Vital Signs: Vital Signs: Last Vital Signs Temp 99.5 F 07/22/20 20:24 Pulse 90 07/22/20 20:24 Resp 24 H 07/22/20 18:18 BP 111/56 L 07/22/20 20:44 Pulse Ox 95 07/22/20 20:24 Body Mass Index 33.0 Appearance: Alert. Oriented X3. No acute distress. Eyes: Pupils equal, round and reactive to light. ENT: Pharynx normal. Neck: Normal inspection. Neck supple. CVS: Tachycardic, regular rhythm. Pulses normal. Respiratory: No respiratory distress. Breath sounds normal. Abdomen: Soft with moderate lower abdominal tenderness, no rebound or guarding. +BS x4 Skin: Skin hot and dry. Normal skin color. Normal skin turgor. No rashes. No skin breakdown. Extremities: No lower extremity edema. No erythema of any major joints. Neuro: Oriented X 3. No motor deficit. No sensory deficit. Course Course Course Narrative: 70 y/o female presenting with new onset fever today of 102.5 at home with reports of fatigue and generalized weakness x3 days. Febrile to 104.5 on arrival with tachycardia to 110's. Patient is non-toxic appearing and offers little complaints. She would like to go home. She has some subrapubic tenderness on exam, has 2 pair of Depends on. Concern for recurrent urosepsis. Full lab workup ordered including cultures, lactic, BMP, CMP. Doubt COVID given she is fully vaccinated. Reevaluation(s) Reevaluation #1: UA positive for infection. Sepsis IVF bolus ordered as well as Rocephin. Prior urine culture with E. coli and Klebsiella both sensitive to ceftriaxone. CT scan ordered to assess for abscess, pyelo. Fever slowly improving with Tylenol. Reevaluation #2: Notified of low MAP 54 at 8:30pm - patient is in the middle of sepsis IVF bolus. Will closely monitor BP. Soft BP likely due to vasodilatation in the setting of fever breaking. Will closely monitor and plan to start vasopressors if hypotension persists after adequate IVF resusciation. Reevaluation #3: 8:50 - BP improved to 111/56. Will continue to monitor. Awaiting CT scan abd/pelvis then will admit for urosepsis. MDM - Fever Medical Records Attestation: I reviewed the patient's medical records. Lab Data Attestation: I reviewed the patient's lab results. Result diagrams: 07/22/20 18:12 07/22/20 18:11 Labs: Lab Results 07/22/20 07/22/20 07/22/20 Range/Units 18:11 18:11 18:11 WBC (4.8-10.8) X10*3/uL RBC (4.20-5.50) X10*6/uL Hgb (12.0-16.0) g/dl Hct (37-47) % MCV (80-98) fL MCH (27.0-33.0) pg MCHC (31.0-35.0) g/dl RDW (11.0-16.0) % Plt Count (160-400) X10*3/uL MPV (9.4-12.3) fL Immature Gran % (Auto) (0.0-0.4) % Neut % (Auto) (45-73) % Lymph % (Auto) (20-40) % [place] % (Auto) (2-11) % Eos % (Auto) (0-4) % Baso % (Auto) (0-2) % Lymph # (Auto) (1.2-4.9) X10*3/uL [place] # (Auto) (0.1-1.2) X10*3/uL Eos # (Auto) (0.0-0.4) X10*3/uL Baso # (Auto) (0.0-0.2) X10*3/uL Abs Immat Gran (auto) (0.00-0.03) X10*3/uL Absolute Neuts (auto) (2.0-8.3) X10*3/uL Absolute Nucleated RBC (0.0-0.012) X10*3/uL Nucleated RBC % (auto) (0.0-0.2) /100WBC Smear Tech's Comments Hold Blue Top SEE NOTE Sodium 130 L (135-145) mmol/L Potassium 4.8 (3.3-5.1) mmol/L Chloride 99 (96-108) mmol/L Carbon Dioxide 20 L (22-29) mmol/L Anion Gap 16 (12-20) BUN 27 H (9-16) mg/dL Creatinine 1.76 H (0.5-1.4) mg/dL Estim Creat Clear Calc 25.7 Estimated GFR 29 POC Glucose (60-115) mg/dL Random Glucose 528 H* (60-115) mg/dL Lactic Acid (0.5-2.0) mmol/L Calcium 8.8 D (8.4-10.2) mg/dL Magnesium 2.1 (1.6-2.6) mg/dL Total Bilirubin 0.6 (0.0-1.0) mg/dL Direct Bilirubin 0.2 (0.0-0.5) mg/dL AST 49 H D (5-31) U/L ALT 43 H (0-31) U/L Alkaline Phosphatase 269 H D (39-117) U/L Total Creatine Kinase (26-140) U/L Troponin I High Sens 7.0 (<3.5-17.0) ng/L Total Protein 7.5 (6.5-8.0) g/dL Albumin 3.5 (3.5-5.0) g/dL Lipase 11 (8-78) U/L Procalcitonin ng/mL Urine Color Urine Appearance Urine pH (5.0-8.0) Ur Specific [place] (1.005-1.025) Urine Protein (NEG-TRACE) MG/DL Urine Glucose (UA) (NEG) MG/DL Urine Ketones (NEG) MG/DL Urine Blood (NEG) Urine Nitrite (NEG) Ur Leukocyte Esterase (NEG) Urine RBC (0) /HPF Urine WBC (0-4) /HPF Ur Squamous Epith Cells /LPF Urine Bacteria /LPF Urine Opiates Screen (Not Detect) Ur Barbiturates Screen (Not Detect) Ur Phencyclidine Scrn (Not Detect) Ur Amphetamines Screen (Not Detect) U Benzodiazepines Scrn (Not Detect) Urine Cocaine Screen (Not Detect) U Marijuana (THC) Screen (Not Detect) 07/22/20 07/22/20 07/22/20 Range/Units 18:11 18:11 18:11 WBC (4.8-10.8) X10*3/uL RBC (4.20-5.50) X10*6/uL Hgb (12.0-16.0) g/dl Hct (37-47) % MCV (80-98) fL MCH (27.0-33.0) pg MCHC (31.0-35.0) g/dl RDW (11.0-16.0) % Plt Count (160-400) X10*3/uL MPV (9.4-12.3) fL Immature Gran % (Auto) (0.0-0.4) % Neut % (Auto) (45-73) % Lymph % (Auto) (20-40) % [place] % (Auto) (2-11) % Eos % (Auto) (0-4) % Baso % (Auto) (0-2) % Lymph # (Auto) (1.2-4.9) X10*3/uL [place] # (Auto) (0.1-1.2) X10*3/uL Eos # (Auto) (0.0-0.4) X10*3/uL Baso # (Auto) (0.0-0.2) X10*3/uL Abs Immat Gran (auto) (0.00-0.03) X10*3/uL Absolute Neuts (auto) (2.0-8.3) X10*3/uL Absolute Nucleated RBC (0.0-0.012) X10*3/uL Nucleated RBC % (auto) (0.0-0.2) /100WBC Smear Tech's Comments Hold Blue Top Sodium (135-145) mmol/L Potassium (3.3-5.1) mmol/L Chloride (96-108) mmol/L Carbon Dioxide (22-29) mmol/L Anion Gap (12-20) BUN (9-16) mg/dL Creatinine (0.5-1.4) mg/dL Estim Creat Clear Calc Estimated GFR POC Glucose (60-115) mg/dL Random Glucose (60-115) mg/dL Lactic Acid (0.5-2.0) mmol/L Calcium (8.4-10.2) mg/dL Magnesium (1.6-2.6) mg/dL Total Bilirubin (0.0-1.0) mg/dL Direct Bilirubin (0.0-0.5) mg/dL AST (5-31) U/L ALT (0-31) U/L Alkaline Phosphatase (39-117) U/L Total Creatine Kinase 60 (26-140) U/L Troponin I High Sens (<3.5-17.0) ng/L Total Protein (6.5-8.0) g/dL Albumin (3.5-5.0) g/dL Lipase (8-78) U/L Procalcitonin 0.12 ng/mL Urine Color YELLOW Urine Appearance CLOUDY Urine pH 6.0 (5.0-8.0) Ur Specific [place] <= 1.005 (1.005-1.025) Urine Protein TRACE (NEG-TRACE) MG/DL Urine Glucose (UA) >=1000 H (NEG) MG/DL Urine Ketones NEG (NEG) MG/DL Urine Blood TRACE (NEG) Urine Nitrite POS H (NEG) Ur Leukocyte Esterase 1+ H (NEG) Urine RBC 1-4 (0) /HPF Urine WBC 76-150 H (0-4) /HPF Ur Squamous Epith Cells TRACE /LPF Urine Bacteria 3+ /LPF Urine Opiates Screen (Not Detect) Ur Barbiturates Screen (Not Detect) Ur Phencyclidine Scrn (Not Detect) Ur Amphetamines Screen (Not Detect) U Benzodiazepines Scrn (Not Detect) Urine Cocaine Screen (Not Detect) U Marijuana (THC) Screen (Not Detect) 07/22/20 07/22/20 07/22/20 Range/Units 18:11 18:12 18:12 WBC 8.4 (4.8-10.8) X10*3/uL RBC 3.26 L (4.20-5.50) X10*6/uL Hgb 9.4 L (12.0-16.0) g/dl Hct 28.8 L (37-47) % MCV 88.3 (80-98) fL MCH 28.8 (27.0-33.0) pg MCHC 32.6 (31.0-35.0) g/dl RDW 15.9 (11.0-16.0) % Plt Count 216 D (160-400) X10*3/uL MPV 10.1 (9.4-12.3) fL Immature Gran % (Auto) 0.4 (0.0-0.4) % Neut % (Auto) 85.1 H (45-73) % Lymph % (Auto) 7.4 L (20-40) % [place] % (Auto) 6.3 (2-11) % Eos % (Auto) 0.4 (0-4) % Baso % (Auto) 0.4 (0-2) % Lymph # (Auto) 0.6 L (1.2-4.9) X10*3/uL [place] # (Auto) 0.5 (0.1-1.2) X10*3/uL Eos # (Auto) 0.0 (0.0-0.4) X10*3/uL Baso # (Auto) 0.0 (0.0-0.2) X10*3/uL Abs Immat Gran (auto) 0.03 (0.00-0.03) X10*3/uL Absolute Neuts (auto) 7.1 (2.0-8.3) X10*3/uL Absolute Nucleated RBC 0.000 (0.0-0.012) X10*3/uL Nucleated RBC % (auto) 0.0 (0.0-0.2) /100WBC Smear Tech's Comments VERIFIED Hold Blue Top Sodium (135-145) mmol/L Potassium (3.3-5.1) mmol/L Chloride (96-108) mmol/L Carbon Dioxide (22-29) mmol/L Anion Gap (12-20) BUN (9-16) mg/dL Creatinine (0.5-1.4) mg/dL Estim Creat Clear Calc Estimated GFR POC Glucose (60-115) mg/dL Random Glucose (60-115) mg/dL Lactic Acid 2.1 H* (0.5-2.0) mmol/L Calcium (8.4-10.2) mg/dL Magnesium (1.6-2.6) mg/dL Total Bilirubin (0.0-1.0) mg/dL Direct Bilirubin (0.0-0.5) mg/dL AST (5-31) U/L ALT (0-31) U/L Alkaline Phosphatase (39-117) U/L Total Creatine Kinase (26-140) U/L Troponin I High Sens (<3.5-17.0) ng/L Total Protein (6.5-8.0) g/dL Albumin (3.5-5.0) g/dL Lipase (8-78) U/L Procalcitonin ng/mL Urine Color Urine Appearance Urine pH (5.0-8.0) Ur Specific [place] (1.005-1.025) Urine Protein (NEG-TRACE) MG/DL Urine Glucose (UA) (NEG) MG/DL Urine Ketones (NEG) MG/DL Urine Blood (NEG) Urine Nitrite (NEG) Ur Leukocyte Esterase (NEG) Urine RBC (0) /HPF Urine WBC (0-4) /HPF Ur Squamous Epith Cells /LPF Urine Bacteria /LPF Urine Opiates Screen Not Detected (Not Detect) Ur Barbiturates Screen Not Detected (Not Detect) Ur Phencyclidine Scrn Not Detected (Not Detect) Ur Amphetamines Screen Not Detected (Not Detect) U Benzodiazepines Scrn Not Detected (Not Detect) Urine Cocaine Screen Not Detected (Not Detect) U Marijuana (THC) Screen Not Detected (Not Detect) 07/22/20 07/22/20 Range/Units 19:33 20:22 WBC (4.8-10.8) X10*3/uL RBC (4.20-5.50) X10*6/uL Hgb (12.0-16.0) g/dl Hct (37-47) % MCV (80-98) fL MCH (27.0-33.0) pg MCHC (31.0-35.0) g/dl RDW (11.0-16.0) % Plt Count (160-400) X10*3/uL MPV (9.4-12.3) fL Immature Gran % (Auto) (0.0-0.4) % Neut % (Auto) (45-73) % Lymph % (Auto) (20-40) % [place] % (Auto) (2-11) % Eos % (Auto) (0-4) % Baso % (Auto) (0-2) % Lymph # (Auto) (1.2-4.9) X10*3/uL [place] # (Auto) (0.1-1.2) X10*3/uL Eos # (Auto) (0.0-0.4) X10*3/uL Baso # (Auto) (0.0-0.2) X10*3/uL Abs Immat Gran (auto) (0.00-0.03) X10*3/uL Absolute Neuts (auto) (2.0-8.3) X10*3/uL Absolute Nucleated RBC (0.0-0.012) X10*3/uL Nucleated RBC % (auto) (0.0-0.2) /100WBC Smear Tech's Comments Hold Blue Top Sodium (135-145) mmol/L Potassium (3.3-5.1) mmol/L Chloride (96-108) mmol/L Carbon Dioxide (22-29) mmol/L Anion Gap (12-20) BUN (9-16) mg/dL Creatinine (0.5-1.4) mg/dL Estim Creat Clear Calc Estimated GFR POC Glucose 378 H* 306 H (60-115) mg/dL Random Glucose (60-115) mg/dL Lactic Acid (0.5-2.0) mmol/L Calcium (8.4-10.2) mg/dL Magnesium (1.6-2.6) mg/dL Total Bilirubin (0.0-1.0) mg/dL Direct Bilirubin (0.0-0.5) mg/dL AST (5-31) U/L ALT (0-31) U/L Alkaline Phosphatase (39-117) U/L Total Creatine Kinase (26-140) U/L Troponin I High Sens (<3.5-17.0) ng/L Total Protein (6.5-8.0) g/dL Albumin (3.5-5.0) g/dL Lipase (8-78) U/L Procalcitonin ng/mL Urine Color Urine Appearance Urine pH (5.0-8.0) Ur Specific [place] (1.005-1.025) Urine Protein (NEG-TRACE) MG/DL Urine Glucose (UA) (NEG) MG/DL Urine Ketones (NEG) MG/DL Urine Blood (NEG) Urine Nitrite (NEG) Ur Leukocyte Esterase (NEG) Urine RBC (0) /HPF Urine WBC (0-4) /HPF Ur Squamous Epith Cells /LPF Urine Bacteria /LPF Urine Opiates Screen (Not Detect) Ur Barbiturates Screen (Not Detect) Ur Phencyclidine Scrn (Not Detect) Ur Amphetamines Screen (Not Detect) U Benzodiazepines Scrn (Not Detect) Urine Cocaine Screen (Not Detect) U Marijuana (THC) Screen (Not Detect) Critical Care Time Critical Care Time Critical Care Time: Yes Total Critical Care Time: 39 Attestation: I attest to critical care time spent caring for this uroseptic patient requiring frequent reassessments and interventions to prevent further deterioration., Discharge Plan Discharge Clinical Impression: Acute UTI Sepsis Qualifiers: Sepsis type: sepsis due to unspecified organism Sepsis acute organ dysfunction status: with acute organ dysfunction Severe sepsis acute organ dysfunction type: unspecified Severe sepsis shock status: without septic shock Qualified Code(s): A41.9 - Sepsis, unspecified organism Patient Disposition: Admitted As Inpatient
[2020-07-22 18:32] LABS: Basophils Percent Auto 0.4 % (0-2); Eosinophils Percent Auto 0.4 % (0-4); Hematocrit 28.8 % (37-47); Hemoglobin 9.4 g/dl (12.0-16.0); Imm Gran Abs Auto 0.03 X10*3/uL (0.00-0.03); Imm Gran Pct Auto 0.4 % (0.0-0.4); Lymphocytes Absolute Auto 0.6 X10*3/uL (1.2-4.9); Lymphocytes Percent Auto 7.4 % (20-40); MANUAL DIFF FLAG SCAN; Mean Corpuscular HGB Conc 32.6 g/dl (31.0-35.0); Mean Corpuscular Hemoglobin 28.8 pg (27.0-33.0); Mean Corpuscular Volume 88.3 fL (80-98); Mean Platelet Volume 10.1 fL (9.4-12.3); Monocytes Absolute Auto 0.5 X10*3/uL (0.1-1.2); Monocytes Percent Auto 6.3 % (2-11); Neutrophils Absolute Auto 7.1 X10*3/uL (2.0-8.3); Neutrophils Percent Auto 85.1 % (45-73); Platelet Count 216 X10*3/uL (160-400); Red Blood Count 3.26 X10*6/uL (4.20-5.50); Red Cell Distribution Width 15.9 % (11.0-16.0); SCAN SMEAR FLAG 1; White Blood Count 8.4 X10*3/uL (4.8-10.8)
[2020-07-22] MEDS: cefTRIAXone sodium 1 GM in 0.9 % Sodium Chloride 50 ML IV (18:38)
--- NOTE | 2020-07-22 18:39 | PC.NURSE ---
Pt is refusing both ice packs to groin/axilla and removal of briefs. Briefs are clean and dry. st on monitor. dry cough remains. urine was clear initialyl then cloudy with straight cath for 400ml.
[2020-07-22 18:47] LABS: SLIDE REVIEW VERIFIED
[2020-07-22 18:49] LABS: Alanine Aminotransferase 43 U/L (0-31); Albumin Level 3.5 g/dL (3.5-5.0); Alkaline Phosphatase 269 U/L (39-117); Anion Gap 16 (12-20); Aspartate Amino Transferase 49 U/L (5-31); Bilirubin Direct 0.2 mg/dL (0.0-0.5); Bilirubin Total 0.6 mg/dL (0.0-1.0); Blood Urea Nitrogen 27 mg/dL (9-16); Calcium 8.8 mg/dL (8.4-10.2); Carbon Dioxide 20 mmol/L (22-29); Chloride 99 mmol/L (96-108); Creatinine Clr Calc Pharmacy 25.7; Estimated Glomerular Filt Rate 29; Glucose Random 528 mg/dL (60-115); Lipase 11 U/L (8-78); Magnesium 2.1 mg/dL (1.6-2.6); Potassium 4.8 mmol/L (3.3-5.1); Sodium 130 mmol/L (135-145); Total Protein 7.5 g/dL (6.5-8.0)
[2020-07-22 18:50] LABS: Lactic Acid 2.1 mmol/L (0.5-2.0)
[2020-07-22 18:53] LABS: Glucose Urine UA >=1000 MG/DL (NEG); Leukocyte Esterase Urine 1+ (NEG); Nitrite Urine POS (NEG); Specific Gravity - Urine <= 1.005 (1.005-1.025); UACC Culture Trigger YES; Urine Blood TRACE (NEG); Urine Ketones NEG (NEG); Urine Protein TRACE MG/DL (NEG-TRACE)
[2020-07-22 19:01] LABS: Appearance Urine CLOUDY; Color Urine YELLOW
[2020-07-22 19:04] LABS: Procalcitonin 0.12 ng/mL
[2020-07-22 19:10] LABS: Amphetamine Screen Urine Not Detected (Not Detect); Barbiturates, Urine Not Detected (Not Detect); Benzodiazepines Screen Urine Not Detected (Not Detect); Cannabinoid Screen Urine Not Detected (Not Detect); Cocaine Screen Urine Not Detected (Not Detect); Opiate Screen Urine Not Detected (Not Detect); Phencyclidine Screen Urine Not Detected (Not Detect)
[2020-07-22 19:17] LABS: Bacteria Urine 3+ /LPF; Squamous Epithelial Cell Urine TRACE /LPF
[2020-07-22] MEDS: Insulin Regular, Human 100 UNIT/ML 3 ML VIAL IVPUSH (19:37)
[2020-07-22 19:39] LABS: Glucose, Whole Blood 378 mg/dL (60-115)
[2020-07-22 20:07] LABS: Influenza A PCR NEGATIVE (Negative); Influenza B PCR NEGATIVE (Negative); Resp Syncy Virus RNA Qual PCR NEGATIVE (Negative); SARS COV2 PCR INHOUSE NEGATIVE (Negative)
[2020-07-22 20:15] LABS: Reflex Lactate? Lactic Acid Added
[2020-07-22 20:30] LABS: Glucose, Whole Blood 306 mg/dL (60-115)
[2020-07-22 21:37] LABS: ~Lactic Acid-LAB USE ONLY 1.9 mmol/L (0.5-2.0)
[2020-07-23] VITALS (11 sets, daily range): BP systolic 117–165; BP diastolic 52–62; PULSE 84–110; RESP 16–26; TEMP 36.8–39.3; O2SAT 97–100
[2020-07-23] MEDS: Acetaminophen 325 MG TABLET 650 MG PO (04:27)
--- NOTE | 2020-07-23 04:29 | PC.NURSE ---
Report taken from halie Moran RN resuming care. Pt found laying in bed, linens saturated in urine. Pt provided with idania care and a complete bed change. Skin noted to be hot to the touch, rectal temp 102.7. Pt medicated with Tylenol, VSS at this time. Pt resting in bed, continue to monitor.
[2020-07-23] MEDS: Levothyroxine Sodium 112 MCG TABLET PO (06:24)
[2020-07-23] MEDS: Omeprazole 20 MG CAPSULE.DR PO (06:24)
--- NOTE | 2020-07-23 06:46 | PC.NURSE ---
This RN calling M/S to give report, per M/S, the nurse isn't here yet. M/S unable to take report at this time.
--- NOTE | 2020-07-23 06:52 | PC.NURSE ---
M/S not answering the phone at this time.
--- NOTE | 2020-07-23 07:45 | P.HPHOSP_ITS ---
History of Present Illness Date of Service: 07/23/20 Chief Complaint: fever This is a 70-year-old female with past medical history of CKD, CVA, diabetes, HTN, HLD, hypothyroidism, iron deficiency anemia, chronic urinary tension with self-catheterization who presents to the hospital with complaints of fever. Patient is Urdu-speaking and therefore history is obtained with the help of an life science taxonomist. Patient reports that she came to the hospital because her daughter checked her temperature and she had a fever. She denies having any urinary symptoms, she denies any headache, change in vision, no abdominal pain nausea or vomiting, no chest pain, no shortness of breath cough or sputum production. No lower edema. On arrival to the ED patient temp was 104.3, heart rate of 115, respiratory rate of 18, blood pressure 110/45, satting 95% on room air Labs are significant for WBC count of 8.4, hemoglobin of 9.4, sodium of 136 corrected for glucose of 528, lactic acid of 2.1 which corrected to 1.9 after f luids, AST of 49, ALT of 43, alk-phos of 269, UA that is positive for nitrites, leukocyte Estrace and WBC, with trace squamous epithelial cells, respiratory viral panel negative including COVID-19 PCR, Abdominal CT of perinephric abscess. Dilation of the urinary collecting system on each side to the level of the bladder, the bladder is mildly dilated with no obstructing calculus demonstrated. 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 Renal tubular acidosis Subclinical hypothyroidism Vitamin D deficiency Yeast infection involving the vagina and surrounding area Family History Maternal Grandmother Pancreatic cancer Surgical History H/O carotid endarterectomy History of cataract surgery History of hysterectomy Social History Household Members: Spouse Housing: Apartment Alcohol intake: never Smoking Status: Never smoker Second Hand Smoke Exposure: No Use of substances other than those prescribed or required for medical reasons: No Advance Directives: No Advance Directives Information Provided: No service: No Current occupational status: unemployed Meds Allergies Allergy/AdvReac Type Severity Reaction Status Date / Time aspirin [ASPIRIN] Allergy Severe SWELLING, Verified 07/22/20 17:43 swelling, rash fish derived [FISH] Allergy Mild RASH Verified 07/22/20 17:43 fish Allergy Unknown swelling Verified 07/22/20 17:43 Penicillins [PENICILLINS] Allergy Unknown SWELLING Verified 07/22/20 17:43 Active Medications: Current Medications Generic Name Dose Route Start Last Admin Trade Name Freq PRN Reason Stop Dose Admin Acetaminophen 650 mg 07/23/20 01:55 07/23/20 04:27 Acetaminophen 325 Mg Tablet PO 650 mg Q6H PRN Administration Pain, Mild (Pain Scale 1-3) Ascorbic Acid 1,000 mg 07/23/20 09:00 Ascorbic Acid 500 Mg Tablet PO DAILY [facility] Atorvastatin Calcium 40 mg 07/23/20 09:00 Atorvastatin Calcium 40 Mg Tablet PO DAILY [facility] Clopidogrel Bisulfate 75 mg 07/23/20 09:00 Clopidogrel Bisulfate 75 Mg Tablet PO DAILY [facility] Clotrimazole 1 appl 07/23/20 21:00 Clotrimazole 1 % Vaginal Cream 45 Gm Tube VAGINAL BEDTIME [facility] Cyanocobalamin 1,000 mcg 07/23/20 09:00 Cyanocobalamin (Vitamin B-12) 1,000 Mcg Tablet PO DAILY [facility] Docusate Sodium 100 mg 07/23/20 01:55 Docusate Sodium 100 Mg Capsule PO DAILY PRN Constipation Furosemide 20 mg 07/23/20 08:00 Furosemide 20 Mg Tablet PO DAILY@0800 [facility] Protocol Gabapentin 300 mg 07/23/20 21:00 Gabapentin 300 Mg Capsule PO BEDTIME [facility] Heparin Sodium (Porcine) 5,000 unit 07/23/20 02:00 07/23/20 01:58 Heparin Sodium,Porcine 5,000 Unit/Ml Vial SUBCUT Not Given Q12H [facility] Ceftriaxone Sodium 1 gm/ 50 mls @ 100 mls/hr 07/23/20 19:00 Sodium Chloride IV Q24H [facility] Levothyroxine Sodium 112 mcg 07/23/20 06:30 07/23/20 06:24 Levothyroxine Sodium 112 Mcg Tablet PO 112 mcg DAILY@0630 [facility] Administration Metoprolol Succinate 12.5 mg 07/23/20 09:00 Metoprolol Succinate Er 25 Mg Tab.Er.24h PO BID [facility] Protocol Non-Formulary Medication 1 gm 07/23/20 09:00 Methenamine Hippurate PO DAILY [facility] Omeprazole 20 mg 07/23/20 06:30 07/23/20 06:24 Omeprazole 20 Mg Capsule.Dr PO 20 mg DAILY@0630 [facility] Administration Ondansetron HCl 4 mg 07/23/20 01:55 Ondansetron Hcl 4 Mg/2 Ml Vial IVPUSH Q8H PRN Nausea and Vomiting Pharmacy Consult 1 each 07/22/20 18:54 Consult Rx Perform Med Rec MISCELLANE ONCE PRN Consult order Sodium Chloride 3 ml 07/23/20 08:00 0.9 % Sodium Chloride Flush 3 M[facility] Vitamin D 50 mcg 07/23/20 09:00 Cholecalciferol (Vitamin D3) 25 Mcg Tablet PO DAILY [facility] Home Medications Medication Instructions Recorded Confirmed Last Taken Type metoprolol succinate 25 mg 12.5 mg PO BID 01/13/20 07/22/20 Unknown History tablet,extended release 24 hr blood sugar diagnostic #10 ea 04/25/20 07/22/20 Unknown History lancets 28 gauge #100 ea 04/25/20 07/22/20 Unknown History levothyroxine 112 mcg tablet 112 mcg PO QAM 04/25/20 07/22/20 Unknown History cephalexin 500 mg capsule 500 mg PO TID 07/12/20 07/22/20 Unknown History gabapentin 300 mg capsule 300 mg PO BEDTIME 07/12/20 07/22/20 Unknown History furosemide 20 mg tablet 20 mg PO DAILY tab 07/20/20 07/22/20 Unknown History Physical Exam Vital Signs and Narrative: Vital Signs: Last Vital Signs Temp 98.5 F 07/23/20 06:15 Pulse 99 07/23/20 06:14 Resp 18 07/23/20 06:14 BP 131/62 07/23/20 06:14 Pulse Ox 98 07/23/20 04:23 Body Mass Index 33.0 Const: General: cooperative and no acute distress Milind entation/consciousness: patient oriented x3 Eyes: General: appearance normal, both eyes and all related structures Resp: Effort & Inspection: normal respiratory effort and able to speak in complete sentences Cardio: Rate: regular rate Rhythm: regular rhythm GI: Palpation (GI): Soft to palpation Auscultation: normal bowel sounds Skin: General skin exam: no rashes or lesions noted Neuro: General: patient oriented x3 Cognition (Neuro): normal cognition Extrem: General: Yes normal to inspection and Yes no pedal edema Results Labs CBC and Chem 7: 07/22/20 18:12 07/22/20 18:11 Labs: Laboratory Results - last 24 hr 07/22/20 07/22/20 07/22/20 18:11 18:11 18:11 MCV MCH MCHC RDW Plt Count MPV Immature Gran % (Auto) Neut % (Auto) Lymph % (Auto) [place] % (Auto) Eos % (Auto) Baso % (Auto) Lymph # (Auto) [place] # (Auto) Eos # (Auto) Baso # (Auto) Abs Immat Gran (auto) Absolute Neuts (auto) Absolute Nucleated RBC Nucleated RBC % (auto) Smear Tech's Comments Hold Blue Top SEE NOTE Anion Gap 16 Estim Creat Clear Calc 25.7 Estimated GFR 29 POC Glucose Random Glucose 528 H* Lactic Acid Lactic Acid Fup @ 2Hr Calcium 8.8 D Magnesium 2.1 Total Bilirubin 0.6 Direct Bilirubin 0.2 AST 49 H D ALT 43 H Alkaline Phosphatase 269 H D Total Creatine Kinase Troponin I High Sens 7.0 Total Protein 7.5 Albumin 3.5 Lipase 11 Procalcitonin Urine Color Urine Appearance Urine pH Ur Specific [place] Urine Protein Urine Glucose (UA) Urine Ketones Urine Blood Urine Nitrite Ur Leukocyte Esterase Urine RBC Urine WBC Ur Squamous Epith Cells Urine Bacteria Urine Opiates Screen Ur Barbiturates Screen Ur Phencyclidine Scrn Ur Amphetamines Screen U Benzodiazepines Scrn Urine Cocaine Screen U Marijuana (THC) Screen Coronavirus (PCR) Influenza Type A (PCR) Influenza Type B (PCR) RSV RNA Qual (PCR) 07/22/20 07/22/20 07/22/20 18:11 18:11 18:11 MCV MCH MCHC RDW Plt Count MPV Immature Gran % (Auto) Neut % (Auto) Lymph % (Auto) [place] % (Auto) Eos % (Auto) Baso % (Auto) Lymph # (Auto) [place] # (Auto) Eos # (Auto) Baso # (Auto) Abs Immat Gran (auto) Absolute Neuts (auto) Absolute Nucleated RBC Nucleated RBC % (auto) Smear Tech's Comments Hold Blue Top Anion Gap Estim Creat Clear Calc Estimated GFR POC Glucose Random Glucose Lactic Acid Lactic Acid Fup @ 2Hr Calcium Magnesium Total Bilirubin Direct Bilirubin AST ALT Alkaline Phosphatase Total Creatine Kinase 60 Troponin I High Sens Total Protein Albumin Lipase Procalcitonin 0.12 Urine Color Urine Appearance Urine pH Ur Specific [place] Urine Protein Urine Glucose (UA) Urine Ketones Urine Blood Urine Nitrite Ur Leukocyte Esterase Urine RBC Urine WBC Ur Squamous Epith Cells Urine Bacteria Urine Opiates Screen Ur Barbiturates Screen Ur Phencyclidine Scrn Ur Amphetamines Screen U Benzodiazepines Scrn Urine Cocaine Screen U Marijuana (THC) Screen Coronavirus (PCR) NEGATIVE Influenza Type A (PCR) NEGATIVE Influenza Type B (PCR) NEGATIVE RSV RNA Qual (PCR) NEGATIVE 07/22/20 07/22/20 07/22/20 18:11 18:11 18:12 MCV 88.3 MCH 28.8 MCHC 32.6 RDW 15.9 Plt Count 216 D MPV 10.1 Immature Gran % (Auto) 0.4 Neut % (Auto) 85.1 H Lymph % (Auto) 7.4 L [place] % (Auto) 6.3 Eos % (Auto) 0.4 Baso % (Auto) 0.4 Lymph # (Auto) 0.6 L [place] # (Auto) 0.5 Eos # (Auto) 0.0 Baso # (Auto) 0.0 Abs Immat Gran (auto) 0.03 Absolute Neuts (auto) 7.1 Absolute Nucleated RBC 0.000 Nucleated RBC % (auto) 0.0 Smear Tech's Comments VERIFIED Hold Blue Top Anion Gap Estim Creat Clear Calc Estimated GFR POC Glucose Random Glucose Lactic Acid Lactic Acid Fup @ 2Hr Calcium Magnesium Total Bilirubin Direct Bilirubin AST ALT Alkaline Phosphatase Total Creatine Kinase Troponin I High Sens Total Protein Albumin Lipase Procalcitonin Urine Color YELLOW Urine Appearance CLOUDY Urine pH 6.0 Ur Specific [place] <= 1.005 Urine Protein TRACE Urine Glucose (UA) >=1000 H Urine Ketones NEG Urine Blood TRACE Urine Nitrite POS H Ur Leukocyte Esterase 1+ H Urine RBC 1-4 Urine WBC 76-150 H Ur Squamous Epith Cells TRACE Urine Bacteria 3+ Urine Opiates Screen Not Detected Ur Barbiturates Screen Not Detected Ur Phencyclidine Scrn Not Detected Ur Amphetamines Screen Not Detected U Benzodiazepines Scrn Not Detected Urine Cocaine Screen Not Detected U Marijuana (THC) Screen Not Detected Coronavirus (PCR) Influenza Type A (PCR) Influenza Type B (PCR) RSV RNA Qual (PCR) 07/22/20 07/22/20 07/22/20 18:12 19:33 20:22 MCV MCH MCHC RDW Plt Count MPV Immature Gran % (Auto) Neut % (Auto) Lymph % (Auto) [place] % (Auto) Eos % (Auto) Baso % (Auto) Lymph # (Auto) [place] # (Auto) Eos # (Auto) Baso # (Auto) Abs Immat Gran (auto) Absolute Neuts (auto) Absolute Nucleated RBC Nucleated RBC % (auto) Smear Tech's Comments Hold Blue Top Anion Gap Estim Creat Clear Calc Estimated GFR POC Glucose 378 H* 306 H Random Glucose Lactic Acid 2.1 H* Lactic Acid Fup @ 2Hr Calcium Magnesium Total Bilirubin Direct Bilirubin AST ALT Alkaline Phosphatase Total Creatine Kinase Troponin I High Sens Total Protein Albumin Lipase Procalcitonin Urine Color Urine Appearance Urine pH Ur Specific [place] Urine Protein Urine Glucose (UA) Urine Ketones Urine Blood Urine Nitrite Ur Leukocyte Esterase Urine RBC Urine WBC Ur Squamous Epith Cells Urine Bacteria Urine Opiates Screen Ur Barbiturates Screen Ur Phencyclidine Scrn Ur Amphetamines Screen U Benzodiazepines Scrn Urine Cocaine Screen U Marijuana (THC) Screen Coronavirus (PCR) Influenza Type A (PCR) Influenza Type B (PCR) RSV RNA Qual (PCR) 07/22/20 20:57 MCV MCH MCHC RDW Plt Count MPV Immature Gran % (Auto) Neut % (Auto) Lymph % (Auto) [place] % (Auto) Eos % (Auto) Baso % (Auto) Lymph # (Auto) [place] # (Auto) Eos # (Auto) Baso # (Auto) Abs Immat Gran (auto) Absolute Neuts (auto) Absolute Nucleated RBC Nucleated RBC % (auto) Smear Tech's Comments Hold Blue Top Anion Gap Estim Creat Clear Calc Estimated GFR POC Glucose Random Glucose Lactic Acid Lactic Acid Fup @ 2Hr 1.9 Calcium Magnesium Total Bilirubin Direct Bilirubin AST ALT Alkaline Phosphatase Total Creatine Kinase Troponin I High Sens Total Protein Albumin Lipase Procalcitonin Urine Color Urine Appearance Urine pH Ur Specific [place] Urine Protein Urine Glucose (UA) Urine Ketones Urine Blood Urine Nitrite Ur Leukocyte Esterase Urine RBC Urine WBC Ur Squamous Epith Cells Urine Bacteria Urine Opiates Screen Ur Barbiturates Screen Ur Phencyclidine Scrn Ur Amphetamines Screen U Benzodiazepines Scrn Urine Cocaine Screen U Marijuana (THC) Screen Coronavirus (PCR) Influenza Type A (PCR) Influenza Type B (PCR) RSV RNA Qual (PCR) Imaging Radiologist's Impressions: Impressions Chest X-Ray 07/22/20 17:50 IMPRESSION: Hypoinflation. No dense consolidation or edema. Abdomen/Pelvis CT 07/22/20 19:07 IMPRESSION: There is no evidence of a perinephric abscess. There is dilation of the urinary collecting system on each side to the level of the bladder. The bladder is mildly dilated. No obstructing calculus demonstrated. Unchanged coarse calcification associated with the gallbladder fundus. Assessment and Plan (1) Sepsis: Qualifiers: Sepsis acute organ dysfunction status: with acute organ dysfunction Sepsis type: sepsis due to unspecified organism Severe sepsis acute organ dysfunction type: unspecified Severe sepsis shock status: without septic shock Qualified Code(s): A41.9 - Sepsis, unspecified organism; R65.20 - Severe sepsis without septic shock Status: Acute (2) Acute UTI: Status: Acute This is a 70-year-old female with chronic urinary retention, patient straight caths herself routinely presents to the hospital with fever. Found to have sepsis secondary to UTI # urosepsis - has fever, tachycardia, no leukocytosis, elevated lactic acid that normalized after fluids - positive urine for leukocyte Estrace, WBC, and nitrites - patient self catheterizes for history of urinary retention - blood and urine control in the past grew Klebsiella sensitive to cephalosporins - at this time will start her on IV antibiotics - follow cultures - IV fluids # lactic acidosis - secondary to sepsis - resolved - continue IV fluids # diabetes - continue home insulin - will place on low-dose sliding scale insulin - diabetic diet # CVA - continue statin, Plavix # hypothyroidism - continue levothyroxine DVT prophylaxis:heparin subq
[2020-07-23] MEDS: 0.9 % Sodium Chloride Flush 3 ML SYRINGE IVFLUSH ×3 (07:49→22:04)
[2020-07-23] MEDS: Furosemide 20 MG TABLET PO (07:52)
[2020-07-23] MEDS: Insulin Lispro 100 UNIT/ML 3 ML VIAL SUBCUT ×4 (07:59→22:03)
--- NOTE | 2020-07-23 08:08 | PC.NURSE ---
REPORT GIVEN TO CHERRY RAMÍREZ
[2020-07-23 08:25] LABS: Glucose, Whole Blood 252 mg/dL (60-115)
[2020-07-23 09:23] LABS: Glucose, Whole Blood 381 mg/dL (60-115)
[2020-07-23] MEDS: Ascorbic Acid 500 MG TABLET 1000 MG PO (10:34)
[2020-07-23] MEDS: Cholecalciferol (Vitamin D3) 25 MCG TABLET 50 MCG PO (10:34)
[2020-07-23] MEDS: Atorvastatin Calcium 40 MG TABLET PO (10:34)
[2020-07-23] MEDS: Clopidogrel Bisulfate 75 MG TABLET PO (10:35)
[2020-07-23] MEDS: Cyanocobalamin (Vitamin B-12) 1,000 MCG TABLET 1000 MCG PO (10:36)
[2020-07-23] MEDS: Metoprolol Succinate ER 25 MG TAB.ER.24H 12.5 MG PO ×2 (10:36→22:02)
[2020-07-23 12:04] LABS: Glucose, Whole Blood 374 mg/dL (60-115)
[2020-07-23] MEDS: Heparin Sodium,Porcine 5,000 UNIT/ML VIAL 5000 UNIT SUBCUT (13:15)
[2020-07-23 16:24] LABS: Glucose, Whole Blood 288 mg/dL (60-115)
--- NOTE | 2020-07-23 16:50 | MHC.CM.PN ---
CM ATTEMPTED TO MEET WITH PT WHO WAS SLEEPING. CM TO REVISIT
[2020-07-23] MEDS: cefTRIAXone sodium 1 GM in 0.9 % Sodium Chloride 50 ML IV (19:28)
[2020-07-23 20:07] LABS: Glucose, Whole Blood 235 mg/dL (60-115)
[2020-07-23] MEDS: Gabapentin 300 MG CAPSULE PO (22:02)
[2020-07-23] MEDS: Clotrimazole 1 % Vaginal Cream 45 GM TUBE 1 APPL VAGINAL (22:12)
[2020-07-24] VITALS (7 sets, daily range): BP systolic 103–142; BP diastolic 50–68; PULSE 90–100; RESP 16–19; TEMP 36.3–37.2; O2SAT 96–99
[2020-07-24] MEDS: Heparin Sodium,Porcine 5,000 UNIT/ML VIAL 5000 UNIT SUBCUT ×2 (01:39→14:33)
[2020-07-24] MEDS: Levothyroxine Sodium 112 MCG TABLET PO (06:08)
[2020-07-24] MEDS: Omeprazole 20 MG CAPSULE.DR PO (06:08)
[2020-07-24 07:15] LABS: MANUAL DIFF FLAG NO
[2020-07-24 07:31] LABS: Basophils Percent Auto 0.4 % (0-2); Eosinophils Percent Auto 0.4 % (0-4); Hemoglobin 9.9 g/dl (12.0-16.0); Imm Gran Abs Auto 0.02 X10*3/uL (0.00-0.03); Imm Gran Pct Auto 0.3 % (0.0-0.4); Lymphocytes Absolute Auto 1.3 X10*3/uL (1.2-4.9); Lymphocytes Percent Auto 16.6 % (20-40); Mean Corpuscular HGB Conc 31.9 g/dl (31.0-35.0); Mean Corpuscular Hemoglobin 28.4 pg (27.0-33.0); Mean Corpuscular Volume 89.1 fL (80-98); Mean Platelet Volume 10.4 fL (9.4-12.3); Monocytes Absolute Auto 0.7 X10*3/uL (0.1-1.2); Monocytes Percent Auto 9.2 % (2-11); Neutrophils Absolute Auto 5.7 X10*3/uL (2.0-8.3); Neutrophils Percent Auto 73.1 % (45-73); Platelet Count 213 X10*3/uL (160-400); Red Blood Count 3.48 X10*6/uL (4.20-5.50); Red Cell Distribution Width 16.6 % (11.0-16.0); White Blood Count 7.7 X10*3/uL (4.8-10.8)
[2020-07-24] MEDS: Insulin Lispro 100 UNIT/ML 3 ML VIAL SUBCUT ×4 (08:00→21:29)
[2020-07-24] MEDS: Ascorbic Acid 500 MG TABLET 1000 MG PO (08:00)
[2020-07-24] MEDS: Clopidogrel Bisulfate 75 MG TABLET PO (08:02)
[2020-07-24] MEDS: 0.9 % Sodium Chloride Flush 3 ML SYRINGE IVFLUSH ×3 (08:02→21:30)
[2020-07-24] MEDS: Atorvastatin Calcium 40 MG TABLET PO (08:02)
[2020-07-24] MEDS: Furosemide 20 MG TABLET PO (08:02)
[2020-07-24] MEDS: Cholecalciferol (Vitamin D3) 25 MCG TABLET 50 MCG PO (08:02)
[2020-07-24] MEDS: Cyanocobalamin (Vitamin B-12) 1,000 MCG TABLET 1000 MCG PO (08:03)
[2020-07-24] MEDS: Metoprolol Succinate ER 25 MG TAB.ER.24H 12.5 MG PO ×2 (08:03→21:29)
[2020-07-24 08:13] LABS: Glucose, Whole Blood 281 mg/dL (60-115)
[2020-07-24 08:14] LABS: Anion Gap 16 (12-20); Blood Urea Nitrogen 21 mg/dL (9-16); Calcium 8.8 mg/dL (8.4-10.2); Carbon Dioxide 21 mmol/L (22-29); Chloride 98 mmol/L (96-108); Creatinine Clr Calc Pharmacy 32.5; Estimated Glomerular Filt Rate 38; Glucose Random 313 mg/dL (60-115); Potassium 4.4 mmol/L (3.3-5.1); Sodium 131 mmol/L (135-145)
--- NOTE | 2020-07-24 11:50 | P.PNIM_ITS ---
Subjective Subjective Date of Service: 07/24/20 <Caity Miranda NP - Last Filed: 07/24/20 12:03> 07/25/20 <Edis Estrada MD - Last Filed: 07/25/20 08:28> Interval History: Follow up UTI, bacteremia No pain Straight cathing <Caity Miranda NP - Last Filed: 07/24/20 12:03> Physical Exam Vital Signs: Vital Signs: Last Vital Signs Temp 97.6 F 07/24/20 08:00 Pulse 95 07/24/20 08:00 Resp 19 07/24/20 08:00 BP 123/57 L 07/24/20 08:00 Pulse Ox 98 07/24/20 08:00 Body Mass Index 33.0 <Caity Miranda NP - Last Filed: 07/24/20 12:03> Appearing in no acute distress lung sounds are clear to auscultation heart regular rate rhythm, clear S1, S2 positive bowel sounds, abdomen is soft, nontender neuro patient is alert x3, no focal deficits <Caity Miranda NP - Last Filed: 07/24/20 12:03> Objective Data Current Medications Generic Name Dose Route Start Last Admin Trade Name Freq PRN Reason Stop Dose Admin Acetaminophen 650 mg 07/23/20 01:55 07/23/20 04:27 Acetaminophen 325 Mg Tablet PO 650 mg Q6H PRN Administration Pain, Mild (Pain Scale 1-3) Ascorbic Acid 1,000 mg 07/23/20 09:00 07/24/20 08:00 Ascorbic Acid 500 Mg Tablet PO 1,000 mg DAILY [facility] Administration Atorvastatin Calcium 40 mg 07/23/20 09:00 07/24/20 08:02 Atorvastatin Calcium 40 Mg Tablet PO 40 mg DAILY [facility] Administration Clopidogrel Bisulfate 75 mg 07/23/20 09:00 07/24/20 08:02 Clopidogrel Bisulfate 75 Mg Tablet PO 75 mg DAILY [facility] Administration Clotrimazole 1 appl 07/23/20 21:00 07/23/20 22:12 Clotrimazole 1 % Vaginal Cream 45 Gm Tube VAGINAL 1 appl BEDTIME [facility] Administration Cyanocobalamin 1,000 mcg 07/23/20 09:00 07/24/20 08:03 Cyanocobalamin (Vitamin B-12) 1,000 Mcg Tablet PO 1,000 mcg DAILY [facility] Administration Docusate Sodium 100 mg 07/23/20 01:55 Docusate Sodium 100 Mg Capsule PO DAILY PRN Constipation Furosemide 20 mg 07/23/20 08:00 07/24/20 08:02 Furosemide 20 Mg Tablet PO 20 mg DAILY@0800 [facility] Administration Protocol Gabapentin 300 mg 07/23/20 21:00 07/23/20 22:02 Gabapentin 300 Mg Capsule PO 300 mg BEDTIME [facility] Administration Heparin Sodium (Porcine) 5,000 unit 07/23/20 02:00 07/24/20 01:39 Heparin Sodium,Porcine 5,000 Unit/Ml Vial SUBCUT 5,000 unit Q12H [facility] Administration Ceftriaxone Sodium 1 gm/ 50 mls @ 100 mls/hr 07/23/20 19:00 07/23/20 20:12 Sodium Chloride IV Infused Q24H [facility] Infusion Insulin Human Lispro 0 unit 07/23/20 11:30 07/24/20 08:00 Insulin Lispro 100 Unit/Ml 3 Ml Vial SUBCUT 6 unit QIDACHS [facility] Administration Protocol Levothyroxine Sodium 112 mcg 07/23/20 06:30 07/24/20 06:08 Levothyroxine Sodium 112 Mcg Tablet PO 112 mcg DAILY@0630 [facility] Administration Metoprolol Succinate 12.5 mg 07/23/20 09:00 07/24/20 08:03 Metoprolol Succinate Er 25 Mg Tab.Er.24h PO 12.5 mg BID [facility] Administration Protocol Non-Formulary Medication 1 gm 07/23/20 09:00 Methenamine Hippurate PO DAILY [facility] Omeprazole 20 mg 07/23/20 06:30 07/24/20 06:08 Omeprazole 20 Mg Capsule.Dr PO 20 mg DAILY@0630 [facility] Administration Ondansetron HCl 4 mg 07/23/20 01:55 Ondansetron Hcl 4 Mg/2 Ml Vial IVPUSH Q8H PRN Nausea and Vomiting Pharmacy Consult 1 each 07/22/20 18:54 Consult Rx Perform Med Rec MISCELLANE ONCE PRN Consult order Sodium Chloride 3 ml 07/23/20 08:00 07/24/20 08:02 0.9 % Sodium Chloride Flush 3 Ml Syringe IVFLUSH 3 ml QSHIFT [facility] Administration Vitamin D 50 mcg 07/23/20 09:00 07/24/20 08:02 Cholecalciferol (Vitamin D3) 25 Mcg Tablet PO 50 mcg DAILY [facility] Administration <Caity Miranda NP - Last Filed: 07/24/20 12:03> Labs CBC & Chem 7: : 07/24/20 07:03 07/24/20 07:03 <Caity Miranda NP - Last Filed: 07/24/20 12:03> Microbiology Microbiology Results: Microbiology 07/22/20 Unknown Urine Catheterized - Jennings Catheter Urine Culture - Final Klebsiella pneumoniae 07/22/20 18:12 Blood - Venous Blood Culture - Preliminary Gram negative alvino 07/22/20 18:12 Blood - Venous Blood Culture - Preliminary Gram negative alvino <Caity Miranda NP - Last Filed: 07/24/20 12:03> Assessment and Plan (1) Bacteremia: Status: Acute <Caity Miranda NP - Last Filed: 07/24/20 12:03> Assessment and Plan: 62-year-old Kinyarwanda-speaking woman admitted with urinary tract infection. Patient has a history of chronic urinary tract infections and retention. She generally straight caths at home. She was found to be bacteremic. She has been seen by Urology this month and has been on suppressive antibiotic regimen. There may be some degree of complaints with antibiotic regimen. Her primary issue from the urological standpoint seems to be diabetic cyst opacity with incomplete emptying and glycosuria. Bacteremia. Blood cultures growing gram-negative rods -continue Rocephin Acute on chronic urinary tract infection. Unknown compliance of suppressive antibiotics at home Urine culture pos for Klebsiella pneumoniae. -continue Rocephin -straight cath -follow-up with Urology as outpatient Uncontrolled diabetes mellitus -Sliding scale -consider adding Lantus if blood sugar continues to be elevated -ADA diet History of CVA -continue statin, Plavix, beta cherrie Hypothyroidism -continue levothyroxine CKD. Stable GERD -ppi DVT prophylaxis with heparin Attending: Dr. Estrada Full code <Caity Miranda NP - Last Filed: 07/24/20 12:03>
[2020-07-24 11:56] LABS: Glucose, Whole Blood 485 mg/dL (60-115)
--- NOTE | 2020-07-24 15:22 | MHC.CM.PN ---
CM MET WITH PT AND HER DAUGHTER WHO WAS AT BEDSIDE. PT LIVES WITH DAUGHTER/HCP, DAVID WHO ALSO WORKS [employer]DRESS[employer]. PT HAS NO OTHER SERVICES IN THE HOME. PT USES A WALKER TO AMBULATE. PTS PCP IS KIN ULLOA AND SHE HAS A HCP ON FILE. IMM DELIVERED CURRENT DC PLAN IS HOME WITH RESUMPTION OF [employer]DRESSER SERVICES DAUGHTER TO TRANSPORT
[2020-07-24 16:30] LABS: Glucose, Whole Blood 350 mg/dL (60-115)
[2020-07-24] MEDS: cefTRIAXone sodium 1 GM in 0.9 % Sodium Chloride 50 ML IV (18:34)
[2020-07-24 20:38] LABS: Glucose, Whole Blood 427 mg/dL (60-115)
[2020-07-24] MEDS: Gabapentin 300 MG CAPSULE PO (21:29)
[2020-07-24] MEDS: Clotrimazole 1 % Vaginal Cream 45 GM TUBE 1 APPL VAGINAL (21:32)
[2020-07-25] MEDS: Heparin Sodium,Porcine 5,000 UNIT/ML VIAL 5000 UNIT SUBCUT (01:59)
[2020-07-25 03:34] VITALS: BP 107/54; PULSE 68; RESP 18; TEMP 36.4; O2SAT 98
[2020-07-25] MEDS: Omeprazole 20 MG CAPSULE.DR PO (06:11)
[2020-07-25] MEDS: Levothyroxine Sodium 112 MCG TABLET PO (06:11)
[2020-07-25 07:51] LABS: Glucose, Whole Blood 299 mg/dL (60-115)
[2020-07-25] MEDS: Insulin Lispro 100 UNIT/ML 3 ML VIAL SUBCUT ×3 (07:55→11:37)
[2020-07-25] MEDS: Cholecalciferol (Vitamin D3) 25 MCG TABLET 50 MCG PO (07:57)
[2020-07-25] MEDS: Atorvastatin Calcium 40 MG TABLET PO (07:57)
[2020-07-25] MEDS: Clopidogrel Bisulfate 75 MG TABLET PO (07:58)
[2020-07-25] MEDS: Ascorbic Acid 500 MG TABLET 1000 MG PO (07:58)
[2020-07-25] MEDS: Furosemide 20 MG TABLET PO (07:58)
[2020-07-25] MEDS: Cyanocobalamin (Vitamin B-12) 1,000 MCG TABLET 1000 MCG PO (07:59)
[2020-07-25] MEDS: Metoprolol Succinate ER 25 MG TAB.ER.24H 12.5 MG PO (07:59)
[2020-07-25] MEDS: 0.9 % Sodium Chloride Flush 3 ML SYRINGE IVFLUSH (07:59)
[2020-07-25 08:00] VITALS: BP 145/65; PULSE 92; RESP 19; TEMP 36.1; O2SAT 100
--- NOTE | 2020-07-25 10:38 | PM.DS ---
DS: Providers Provider Date of Service: 07/25/20 Date of admission: 07/23/20 01:49 Primary care physician: Kimi Patino MD DS: Diagnosis Discharge Diagnosis (1) Sepsis: Status: Acute (2) Bacteremia: Status: Acute (3) UTI due to Klebsiella species: Status: Acute (4) Bacteremia due to Klebsiella pneumoniae: Status: Acute (5) Uncontrolled diabetes mellitus: Status: Acute DS: Medications Discharge Medications Home Medications: Home Medications Medication Instructions Recorded Confirmed metoprolol succinate 25 mg 12.5 mg PO BID 01/13/20 07/22/20 tablet,extended release 24 hr blood sugar diagnostic #10 ea 04/25/20 07/22/20 lancets 28 gauge #100 ea 04/25/20 07/22/20 levothyroxine 112 mcg tablet 112 mcg PO QAM 04/25/20 07/22/20 cephalexin 500 mg capsule 500 mg PO TID 07/12/20 07/22/20 gabapentin 300 mg capsule 300 mg PO BEDTIME 07/12/20 07/22/20 furosemide 20 mg tablet 20 mg PO DAILY tab 07/20/20 07/22/20 Previous Rx's Medication Instructions Recorded clotrimazole 1 % vaginal cream 1 appful VAGINAL BEDTIME 7 Days 12/15/19 #45 g pen needle, diabetic 32 gauge x #60 ea 12/27/19 cholecalciferol (vitamin D3) 50 50 mcg PO DAILY 30 Days #30 cap 01/31/20 mcg (2,000 unit) capsule cyanocobalamin (vitamin B-12) 1,000 mcg PO DAILY #90 tab 02/22/20 [Vitamin B-12] blood-glucose meter #1 ea 04/25/20 glucose 4 gram chewable tablet 12 g PO Q15M PRN #30 tab 04/25/20 walker with seat and breaks #1 ea 05/15/20 blood sugar diagnostic #100 ea 05/23/20 insulin aspar prot-insulin aspart See Rx Instructions SUBCUT BID 30 05/23/20 100 unit/mL (70-30) subcutaneous Days #30 ml pen Shower chair with arms #1 ea 06/16/20 raised toilet seat with arms #1 ea 06/16/20 clopidogrel 75 mg tablet 75 mg PO DAILY #90 tab 07/05/20 ascorbic acid (vitamin C) 1,000 mg 1 g PO DAILY 90 Days #90 tab 07/12/20 tablet atorvastatin 40 mg tablet 40 mg PO DAILY #90 tab 07/12/20 methenamine hippurate 1 gram tablet 1 g PO DAILY 90 Days #90 tab 07/12/20 omeprazole 20 mg capsule,delayed 20 mg PO QAM #90 cap 07/12/20 release cefuroxime axetil 500 mg PO Q12H #22 tab 07/25/20 DS: Summary Hospital Course Hospital Course: Patient presented with signs and symptoms sepsis with the source likely being her urine. She was empirically started on IV ceftriaxone after cultures were drawn. She was given the appropriate fluid. Her culture data returned positive for Klebsiella in the urine as well as 2/2 blood cultures. Over the course of 3 days in the hospital, patient's sepsis resolved and she was transition from IV ceftriaxone to oral cefuroxime for 11 more days for total of 14 days of antibiotics. Patient is following up with Urology for recurrent urinary tract infections and should continue to do so as needed. Can continue straight catheterization as home as indicated from last PCPs note. Additionally, last urology note recommended prophylactic antibiotics which can be continued after completion of her antibiotic course. Time Spent with Patient Time attestation: Total time spent providing and/or coordinating discharge services: Discharge coordination time: Greater than 30 minutes Quality: Stroke Does the patient have a stroke diagnosis?: No Physical Exam Vital Signs: Vital Signs: Last Vital Signs Temp 96.9 F 07/25/20 08:00 Pulse 92 07/25/20 08:00 Resp 19 07/25/20 08:00 BP 145/65 H 07/25/20 08:00 Pulse Ox 100 07/25/20 08:00 Body Mass Index 33.0 Const: Other: General - no acute distress, appears comfortable Cardiovascular - regular rate and rhythm, S1-S2 Lungs - normal respiratory effort, clear to auscultation bilaterally, no wheezing Abdomen - soft, nontender, no rebound or guarding Extremities - no edema bilaterally Neuro - awake and alert, no focal deficits DS: Data Data Completed and Pending Labs on day of discharge: Laboratory Results - last 24 hr 07/24/20 07/24/20 07/24/20 11:27 16:21 20:32 POC Glucose 485 H* 350 H* 427 H* 07/25/20 07:40 POC Glucose 299 H Discharge Plan Discharge Patient Disposition: Home Health Service Discharge Diagnosis: UTI causing bacteremia Referrals: Kimi Patino MD [Primary Care Provider] - 1 Week Discharge Medications: New cefuroxime axetil 500 mg tablet 500 mg PO Q12H Qty: 22 RF: 0 Continued clotrimazole [Gyne-Lotrimin 7] 1 % cream 1 appful vaginal BEDTIME 7 Days Qty: 45 RF: 1 (DME) pen needle, diabetic [BD Denisa 2nd Gen Pen Needle] 32 gauge x 5/32 needle See Rx Instructions .MEDSUPPLY Qty: 60 RF: 6 metoprolol succinate 25 mg tablet extended release 24 hr 12.5 mg PO BID RF: 0 cholecalciferol (vitamin D3) 50 mcg (2,000 unit) capsule 50 mcg PO DAILY 30 Days Qty: 30 RF: 7 (DME) walker with seat and breaks See Rx Instructions .Route .MEDSUPPLY Qty: 1 RF: 0 (DME) raised toilet seat with arms See Rx Instructions .Route .MEDSUPPLY Qty: 1 RF: 0 (DME) Shower chair with arms See Rx Instructions .Route .MEDSUPPLY Qty: 1 RF: 0 clopidogrel 75 mg tablet 75 mg PO DAILY Qty: 90 RF: 0 furosemide 20 mg tablet 20 mg PO DAILY RF: 0 cyanocobalamin (vitamin B-12) [Vitamin B-12] 1,000 mcg Tablet 1,000 mcg PO DAILY Qty: 90 RF: 3 atorvastatin 40 mg tablet 40 mg PO DAILY Qty: 90 RF: 0 omeprazole 20 mg capsule,delayed release(DR/EC) 20 mg PO QAM Qty: 90 RF: 0 levothyroxine 112 mcg tablet 112 mcg PO QAM RF: 0 (DME) blood sugar diagnostic Strip See Rx Instructions ea Not Applicable QID Qty: 10 RF: 0 (DME) lancets 28 gauge misc See Rx Instructions ea topical QID Qty: 100 RF: 0 glucose [Dex4 Glucose] 4 gram tablet,chewable 12 g PO Q15M PRN (Reason: hypoglycemia) Qty: 30 RF: 3 (DME) blood-glucose meter [FreeStyle Lite Meter] Kit See Rx Instructions .ROUTE .MEDSUPPLY Qty: 1 RF: 0 insulin asp prt-insulin aspart [Novolog Mix 70-30FlexPen U-100] 100 unit/mL (70-30) insulin pen See Rx Instructions subcut BID 30 Days Qty: 30 RF: 2 (DME) FreeStyle Lite Strips Strip See Rx Instructions .ROUTE .MEDSUPPLY Qty: 100 RF: 11 cephalexin 500 mg capsule 500 mg PO TID RF: 0 gabapentin 300 mg capsule 300 mg PO BEDTIME RF: 0 ascorbic acid (vitamin C) 1,000 mg tablet 1 g PO DAILY 90 Days Qty: 90 RF: 1 methenamine hippurate 1 gram tablet 1 g PO DAILY 90 Days Qty: 90 RF: 1 Discharge Orders: Discharge Order (Routine); Ordered 07/25/20 Ordered By: Edis Estrada Diet: advance to usual diet Activity on Discharge: As tolerated Stand Alone Forms: Patient Portal Discharge page Care Plan Goals: To stay healthy and out of the hospital. Health Concerns: Bacteremia and UTI Plan of Treatment: Take Ceftin 500mg twice daily for 11 more days, after this you can start your prophylactic antibiotics. Assessment: 70 yo F admitted for sepsis secondary to UTI / Bacteremia. Found to have Klebsiella sensitive for cephalosporins. Is following up with urology and should continue to do so.
[2020-07-25 11:27] LABS: Glucose, Whole Blood 440 mg/dL (60-115)
--- NOTE | 2020-07-25 11:33 | MHC.CM.PN ---
PT DISCHARGING TODAY HOME W/RESUMP OF [facility], RUDY NIEVES CALLED AT 11:30AM [phone] AND IS ON HER WAY TO [facility].
--- NOTE | 2020-07-25 15:46 | MHC.CM.PN ---
Addendum entered by Candi Ambriz 07/25/20 15:48: DAVID'S CONTACT # [phone] Original Note: POST DISCHARGE NOTE - PER CONVERSATION WITH DAUGHTER DAVID, PATIENT IS DENYING NEED FOR ANY [facility] REFERRAL. DAUGHTER MADE AWARE THAT IF PATIENT IS TO CHANGE HER MID, A CALL WILL HAVE TO BE MADE TO THE PCP OFFICE TO ARRANGE.
== END 2020-07-25 12:25 | disposition home or self-care (01) | DRG 872 ==
LOC: HO.ED 20:52 → HO.EDOVER 07-23 02:25 → HO.S3 07-23 06:35
PROVIDERS: Nurse Practitioner Acute Care; Physician Assistant; Admitting Provider Internal Medicine; Emergency Provider Emergency Medicine; PCP Internal Medicine; Visit Provider Family Medicine
DX: A41.4 Sepsis due to anaerobes (principal); N39.0 Urinary tract infection, site not specified; E87.2 Acidosis; E03.9 Hypothyroidism, unspecified; B96.1 Klebsiella pneumoniae [K. pneumoniae] as the cause of diseases classified elsewhere; Z20.822 Contact with and (suspected) exposure to COVID-19; E11.65 Type 2 diabetes mellitus with hyperglycemia; I12.9 Hypertensive chronic kidney disease with stage 1 through stage 4 chronic kidney disease, or unspecified chronic kidney disease; K21.9 Gastro-esophageal reflux disease without esophagitis; E11.22 Type 2 diabetes mellitus with diabetic chronic kidney disease; N18.9 Chronic kidney disease, unspecified; Z88.0 Allergy status to penicillin; Z88.6 Allergy status to analgesic agent; Z86.73 Personal history of transient ischemic attack (TIA), and cerebral infarction without residual deficits; Z79.02 Long term (current) use of antithrombotics/antiplatelets; Z79.4 Long term (current) 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; Z79.890 Hormone replacement therapy; Z79.899 Other long term (current) drug therapy
CPT/HCPCS: 0241U; 36415; 71045; 74176; 80048; 80076; 80307; 81001; 81003; 82550; 82947; 83605; 83690; 83735; 84145; 84484; 85025; 87040; 87077; 87086; 87088; 87186; 87205; 96365; 96375; 99212; 99285; 99291; J0696

== ENCOUNTER → 2020-08-03 13:02 | Outpatient (BNVA) | payer MEDICARE, MEDICAID, SELFPAY | PROVIDERS: PCP Internal Medicine; Visit Provider Nurse Practitioner Gerontology | DX: E11.65 Type 2 diabetes mellitus with hyperglycemia (principal); E11.42 Type 2 diabetes mellitus with diabetic polyneuropathy; E11.22 Type 2 diabetes mellitus with diabetic chronic kidney disease; I12.9 Hypertensive chronic kidney disease with stage 1 through stage 4 chronic kidney disease, or unspecified chronic kidney disease; N18.30 Chronic kidney disease, stage 3 unspecified; E78.2 Mixed hyperlipidemia; E03.9 Hypothyroidism, unspecified; E55.9 Vitamin D deficiency, unspecified; Z79.4 Long term (current) 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 | CPT/HCPCS: 82947; 99212 ==

== ENCOUNTER → 2020-08-24 09:25 | Outpatient (BNVA) | payer MEDICARE, MEDICAID, SELFPAY | PROVIDERS: PCP Internal Medicine; Visit Provider Nurse Practitioner Gerontology | DX: E11.65 Type 2 diabetes mellitus with hyperglycemia (principal); E11.42 Type 2 diabetes mellitus with diabetic polyneuropathy; E11.22 Type 2 diabetes mellitus with diabetic chronic kidney disease; I12.9 Hypertensive chronic kidney disease with stage 1 through stage 4 chronic kidney disease, or unspecified chronic kidney disease; N18.30 Chronic kidney disease, stage 3 unspecified; E78.5 Hyperlipidemia, unspecified; E03.9 Hypothyroidism, unspecified; E55.9 Vitamin D deficiency, unspecified; Z79.4 Long term (current) 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 | CPT/HCPCS: 82947; 99212 ==

== ENCOUNTER → 2020-09-01 13:09 | Outpatient (BNVA) | payer MEDICARE, MEDICAID, SELFPAY | PROVIDERS: PCP Internal Medicine; Visit Provider Urology | DX: E11.42 Type 2 diabetes mellitus with diabetic polyneuropathy (principal); N39.0 Urinary tract infection, site not specified | CPT/HCPCS: 51798; 99212 ==

== ENCOUNTER 2020-09-06 10:39 | Outpatient (REF) | payer MEDICARE, MEDICAID, SELFPAY ==
[2020-09-06 13:55] LABS: MANUAL DIFF FLAG NO
[2020-09-06 13:59] LABS: Basophils Percent Auto 0.5 % (0-2); Eosinophils Absolute Auto 0.1 X10*3/uL (0.0-0.4); Eosinophils Percent Auto 2.5 % (0-4); Hematocrit 36.3 % (37-47); Hemoglobin 12.1 g/dl (12.0-16.0); Imm Gran Abs Auto 0.01 X10*3/uL (0.00-0.03); Imm Gran Pct Auto 0.2 % (0.0-0.4); Lymphocytes Absolute Auto 1.7 X10*3/uL (1.2-4.9); Lymphocytes Percent Auto 31.1 % (20-40); Mean Corpuscular HGB Conc 33.3 g/dl (31.0-35.0); Mean Corpuscular Hemoglobin 30.2 pg (27.0-33.0); Mean Corpuscular Volume 90.5 fL (80-98); Mean Platelet Volume 9.7 fL (9.4-12.3); Monocytes Absolute Auto 0.5 X10*3/uL (0.1-1.2); Monocytes Percent Auto 8.6 % (2-11); Neutrophils Absolute Auto 3.2 X10*3/uL (2.0-8.3); Neutrophils Percent Auto 57.1 % (45-73); Platelet Count 308 X10*3/uL (160-400); Red Blood Count 4.01 X10*6/uL (4.20-5.50); Red Cell Distribution Width 15.3 % (11.0-16.0); White Blood Count 5.6 X10*3/uL (4.8-10.8)
[2020-09-06 14:23] LABS: Alanine Aminotransferase 83 U/L (0-31); Albumin Level 4.2 g/dL (3.5-5.0); Alkaline Phosphatase 341 U/L (39-117); Anion Gap 19 (12-20); Aspartate Amino Transferase 92 U/L (5-31); Bilirubin Total 0.4 mg/dL (0.0-1.0); Blood Urea Nitrogen 37 mg/dL (9-16); Carbon Dioxide 21 mmol/L (22-29); Chloride 100 mmol/L (96-108); Estimated Glomerular Filt Rate 33; Glucose Random 81 mg/dL (60-115); Potassium 4.8 mmol/L (3.3-5.1); Sodium 135 mmol/L (135-145); Total Protein 8.5 g/dL (6.5-8.0)
== END 2020-09-06 10:40 | disposition home or self-care (01) ==
LOC: HO.HMGCLDS 10:39
PROVIDERS: PCP Internal Medicine; Visit Provider Internal Medicine
DX: D64.9 Anemia, unspecified (principal); E87.1 Hypo-osmolality and hyponatremia; R21 Rash and other nonspecific skin eruption; R79.89 Other specified abnormal findings of blood chemistry
CPT/HCPCS: 36415; 80053; 85025

== ENCOUNTER → 2020-09-15 09:10 | Outpatient (BNVA) | payer MEDICARE, MEDICAID, SELFPAY | PROVIDERS: PCP Internal Medicine; Visit Provider Dietitian, Registered | DX: E11.22 Type 2 diabetes mellitus with diabetic chronic kidney disease (principal); N18.30 Chronic kidney disease, stage 3 unspecified | CPT/HCPCS: 97803 ==

== ENCOUNTER 2020-10-24 06:45 | Outpatient (REF) | payer MEDICARE, MEDICAID, SELFPAY ==
[2020-10-24 08:21] LABS: Alanine Aminotransferase 54 U/L (0-31); Albumin Level 4.3 g/dL (3.5-5.0); Alkaline Phosphatase 307 U/L (39-117); Anion Gap 16 (12-20); Aspartate Amino Transferase 49 U/L (5-31); Bilirubin Total 0.4 mg/dL (0.0-1.0); Blood Urea Nitrogen 36 mg/dL (9-16); Carbon Dioxide 22 mmol/L (22-29); Chloride 101 mmol/L (96-108); Cholesterol 175 mg/dL; Estimated Glomerular Filt Rate 33; Glucose Fasting 96 mg/dL (60-99); HDL Cholesterol 57 mg/dL; LDL Cholesterol Calculated 96 mg/dl; Potassium 4.8 mmol/L (3.3-5.1); Sodium 134 mmol/L (135-145); Total Protein 8.7 g/dL (6.5-8.0); Triglycerides 111 mg/dL
[2020-10-24 08:24] LABS: Calcium 10.3 mg/dL (8.4-10.2)
[2020-10-24 08:36] LABS: Free T4 (Free Thyroxine) 0.95 ng/dL (0.71-1.85); Thyroid Stimulating Hormone 6.35 uIU/mL (0.32-4.0)
[2020-10-24 09:41] LABS: Creatinine Urine 35.44 mg/dL; Microalbum/Creatinine Ratio Ur 98.7 ug/mg cr
== END 2020-10-24 06:46 | disposition home or self-care (01) ==
LOC: HO.LAB 06:45
PROVIDERS: PCP Internal Medicine; Visit Provider Nurse Practitioner Gerontology
DX: E11.42 Type 2 diabetes mellitus with diabetic polyneuropathy (principal); E03.9 Hypothyroidism, unspecified
CPT/HCPCS: 36415; 80053; 80061; 82043; 84439; 84443

== ENCOUNTER → 2020-11-02 07:59 | Outpatient (BNVA) | payer MEDICARE, MEDICAID, SELFPAY | PROVIDERS: PCP Internal Medicine; Visit Provider Nurse Practitioner Gerontology | CPT/HCPCS: 82947; 99212 ==

== ENCOUNTER 2020-11-02 09:24 | Outpatient (REF) | payer MEDICARE, MEDICAID, SELFPAY ==
[2020-11-02 10:56] LABS: Albumin Level 4.3 g/dL (3.5-5.0)
[2020-11-03 17:32] LABS: Calcium, Ionized 5.1 mg/dL (4.8-5.6)
[2020-11-06 21:06] LABS: VITAMIN D (1,25 OH) D3 59 pg/mL; Vit D (1,25-Dihydroxy) Total 59 pg/mL (18-72); Vitamin D (1,25 OH) D2 <8 pg/mL
== END 2020-11-02 09:25 | disposition home or self-care (01) ==
LOC: HO.10HDL 09:24
PROVIDERS: Visit Provider Nurse Practitioner Gerontology
DX: E83.52 Hypercalcemia (principal); E11.65 Type 2 diabetes mellitus with hyperglycemia; E11.42 Type 2 diabetes mellitus with diabetic polyneuropathy; I12.9 Hypertensive chronic kidney disease with stage 1 through stage 4 chronic kidney disease, or unspecified chronic kidney disease; E11.22 Type 2 diabetes mellitus with diabetic chronic kidney disease; N18.30 Chronic kidney disease, stage 3 unspecified; E78.2 Mixed hyperlipidemia; R79.89 Other specified abnormal findings of blood chemistry; E03.9 Hypothyroidism, unspecified; Z79.4 Long term (current) 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
CPT/HCPCS: 36415; 82040; 82330; 82652; 82947; 83970; 99212

== ENCOUNTER 2020-11-27 08:16 | Outpatient (REF) | payer MEDICARE, MEDICAID, SELFPAY ==
[2020-11-27 09:38] LABS: Albumin Level 4.3 g/dL (3.5-5.0)
[2020-11-27 10:09] LABS: Vitamin D 25-OH Total 38.1 ng/mL (>30)
[2020-11-28 16:16] LABS: PTHI 106 pg/mL (14-64)
== END 2020-11-27 08:17 | disposition home or self-care (01) ==
LOC: HO.LAB 08:16
PROVIDERS: PCP Internal Medicine; Visit Provider Nurse Practitioner Gerontology
DX: E83.52 Hypercalcemia (principal)
CPT/HCPCS: 36415; 82040; 82306; 83970

== ENCOUNTER → 2020-12-20 12:58 | Outpatient (BNVA) | payer MEDICARE, MEDICAID, SELFPAY | PROVIDERS: Visit Provider Internal Medicine | DX: E21.3 Hyperparathyroidism, unspecified (principal); E55.9 Vitamin D deficiency, unspecified; E16.2 Hypoglycemia, unspecified | CPT/HCPCS: 82947; 99212 ==

== ENCOUNTER 2020-12-27 10:14 | Outpatient (REF) | payer MEDICARE, MEDICAID, SELFPAY ==
--- NOTE | ~2020-12-27 | MM_ITS ---
EXAMINATION: MM SCREENING DIGITAL BREAST TOMOSYNTHESIS, BILATERAL CLINICAL INFORMATION: Screening. Asymptomatic. The lifetime risk of breast cancer based on the Tyrer-Cuzick Model is 3%. COMPARISON: Mammography: 01/09/2018, 06/04/2016, 05/17/2015 TECHNIQUE: Digital breast tomosynthesis is performed in both the craniocaudal and mediolateral oblique views along with computer-aided detection (CAD). Synthesized 2D images are generated from the tomosynthesis. FINDINGS: There are scattered areas of fibroglandular density (ACR BI-RADS breast composition Category b). There are no significant masses, abnormal calcifications, or other abnormalities. No developing density. The contours are smooth. No significant changes. MM/MM tomosynthesis screening BI IMPRESSION: No mammographic evidence of malignancy. ASSESSMENT: BI-RADS 1: Negative RECOMMENDATION: Routine annual mammography screening. This patient's information was entered into a reminder system with a target due date for their next mammogram.
== END 2020-12-27 10:15 | disposition home or self-care (01) ==
LOC: HO.MAMMO 10:14
PROVIDERS: Visit Provider Internal Medicine
DX: Z12.31 Encounter for screening mammogram for malignant neoplasm of breast (principal)
CPT/HCPCS: 77063; 77067

== ENCOUNTER 2021-01-02 08:13 | Outpatient (REF) | payer MEDICARE, MEDICAID, SELFPAY ==
--- NOTE | ~2021-01-02 | US_ITS ---
EXAMINATION: US THYROID CLINICAL INFORMATION: Hyperparathyroidism COMPARISON: None TECHNIQUE: Linear transducer ulrich-scale and color Doppler examination with attention to the region of the thyroid. FINDINGS: SIZE: Measurements of the thyroid lobes and nodules are given in sagittal, anteroposterior and transverse dimensions respectively. Right Thyroid Lobe: 3.2 x 0.9 x 1.0 cm, volume 1.5 mL. Parenchyma: The gland echotexture is homogeneous. Thyroid vascularity is normal. Left Thyroid Lobe: 2.8 x 0.7 x 0.8 cm, volume 0.8 mL. Parenchyma: The gland echotexture is homogeneous. Thyroid vascularity is normal. Isthmus: 0.1 cm in maximum AP dimension. No focal thyroid nodule is seen. Parathyroids are not identified. No adnexal masses seen. NODES: No lymphadenopathy is seen in the tissue surrounding the thyroid gland. US/US thyroid IMPRESSION: No thyroid gland nodule. No parathyroid adenoma appreciated. TR 1 ACR TI-RADS RECOMMENDATION REFERENCE: Ultrasound-guided fine-needle aspiration, followup ultrasound, no further follow up. * TR1 (0 point) and TR 2 (2 points): No FNA or follow up * TR3 (3 points): FNA if more than or equal to 2.5 cm in maximum dimension, followup ultrasound in 1, 3 and 5 years if 1.5 to 2.4 cm in maximum dimension. * TR4 (4-6 points): FNA if more than or equal to 1.5 cm in maximum dimension, followup ultrasound in 1, 2, 3 and 5 years if 1 to 1.4 cm in maximum dimension. * TR5 (more than or equal to 7 points): FNA if more than or equal to 1 cm in maximum dimension, followup ultrasound every year for 5 years if 0.5 to 0.9 cm in maximum dimension. * TR3, TR4 or TR5 nodules that are below the size threshold for follow up receive no follow up.
== END 2021-01-02 08:14 | disposition home or self-care (01) ==
LOC: HO.HMGCX 08:13
PROVIDERS: PCP Internal Medicine; Visit Provider Internal Medicine
DX: E21.3 Hyperparathyroidism, unspecified (principal)
CPT/HCPCS: 76536

== ENCOUNTER 2021-01-15 13:55 | Outpatient (REF) | payer MEDICARE, MEDICAID, SELFPAY ==
[2021-01-15 16:43] LABS: Bilirubin Direct 0.2 mg/dL (0.0-0.5); Bilirubin Total 0.4 mg/dL (0.0-1.0); Ferritin 177 ng/mL (10-250)
[2021-01-15 16:57] LABS: Gamma Glutamyl Transpeptidase 634 U/L (7-33)
[2021-01-17 08:55] LABS: HBc Num1 0.25 S/CO (0.00-0.79); HIV AB/AG Nonreactive (Nonreactive); HIV Num 1 0.14 S/CO (0.00-0.99); Hepatitis B Core Antibody Nonreactive (Nonreactive); ~Hepatitis B Surface Antibody NONREACTIVE (Nonreactive)
[2021-01-17 09:08] LABS: HBsAGNum1 0.13 S/CO (0.00-0.99); Hepatitis A Antibody IgM 0.23 Index (0-0.79); Hepatitis B Surface Antigen Negative (Negative); ~HepC Num1 0.14 S/CO (0.00-0.79); ~Hepatitis A Antibody IgM Nonreactive (Nonreactive); ~Hepatitis C Antibody Nonreactive (Nonreactive)
[2021-01-17 14:16] LABS: Anti Nuclear Antibody Screen NEGATIVE (NEGATIVE)
[2021-01-18 14:01] LABS: Mitochondrial Antibodies NEGATIVE (NEGATIVE)
[2021-01-21 00:02] LABS: Smooth Muscle Antibody <20 U (<20)
== END 2021-01-15 13:56 | disposition home or self-care (01) ==
LOC: HO.LAB 13:55
PROVIDERS: Referring Provider Internal Medicine; Visit Provider Nurse Practitioner
DX: R74.01 Elevation of levels of liver transaminase levels (principal); L29.9 Pruritus, unspecified
CPT/HCPCS: 36415; 82105; 82247; 82248; 82728; 82977; 86038; 86039; 86255; 86256; 86704; 86706; 86709; 86803; 87340; 87389; 99202

== ENCOUNTER 2021-01-18 13:53 | Outpatient (REF) | payer MEDICARE, MEDICAID, SELFPAY ==
--- NOTE | ~2021-01-18 | MM_ITS ---
EXAMINATION: BONE DENSITOMETRY CLINICAL INDICATION: Hyperparathyroidism, unspecified. COMPARISON: Previous BD dated 06/04/2016 and baseline BD dated 08/02/2010.This is the patient's baseline examination for the forearm radius 33%. TECHNIQUE: Using a Elite Daily DXA System (software version: 13.1) manufactured by [employer], dual-energy x-ray absorptiometry was performed of the lumbar spine, left hip, and left forearm radius 33%. The images are of good technical quality. Summary results are attached. FINDINGS: AP SPINE L1-L4: Current: BMD 1.170 g/cm2, Z-score 1.5, T-score -0.1, normal, 12.0% increase from previous, 11.4% increase from baseline (<5% change is not significant). Prior: BMD 1.045 g/cm2. Baseline: BMD 1.050 g/cm2. LEFT FEMUR, NECK: Current: BMD 0.983 g/cm2, Z-score 1.2, T-score -0.4, normal. Prior: BMD 1.016 g/cm2. Baseline: BMD 1.066 g/cm2. LEFT FEMUR, TOTAL: Current: BMD 1.160 g/cm2, Z-score 2.5, T-score 1.2, normal, 0.0% no change from previous, 1.0% decrease from baseline (<5% change is not significant). Prior: BMD 1.160 g/cm2. Baseline: BMD 1.172 g/cm2. LEFT FOREARM RADIUS 33%: BMD 0.623 g/cm2, Z-score -1.2, T-score -2.9, osteoporosis. Prior: Not previously measured. IDENTIFIED RISK FACTORS: Osteoporosis, renal, hyperparathyroidism, height loss, low calcium intake, history of fracture (adult). Early menopause, secondary osteoporosis, hysterectomy. HISTORY OF FRACTURE: Other. MEDICATIONS: Vitamin D. MM/XR DEXA appendicular skeleton IMPRESSION: 1. DIAGNOSIS: Osteoporosis based on the lowest T-score value of -2.9 in the forearm radius 33% applying World Health Organization criteria. 2. 10-YEAR FRACTURE RISK PREDICTION, FRAX: According to the guidelines, FRAX calculation should only be performed on patients in the osteopenia bone density category. 3. Treatment Recommendations: NOF guidelines recommend consideration for treatment in postmenopausal women and men age 50 and older presenting with the following: -A hip or vertebral (clinical or morphometric) fracture. -T-score less than or equal to -2.5 at the femoral neck or spine after appropriate evaluation to exclude secondary causes. -Low bone mass at the hip or spine and a 10-year fracture probability by FRAX of greater than or equal to 3% for hip fracture or greater than or equal to 20% for major osteoporotic fracture based on the [place] adapted WHO algorithm. 4. Other Recommendations: All treatment decisions require clinical judgment and consideration of individual patient factors, including patient preferences, comorbidities, previous drug use, risk factors not captured in the FRAX model (e.g. frailty, falls, vitamin D deficiency, increased bone turnover, interval significant decline in bone density) and possible under or overestimation of fracture risk by FRAX. Additional medical evaluation for secondary cause of low bone mineral density may be appropriate. FUTURE SCAN RECOMMENDATION: People with diagnosed cases of osteoporosis or at high risk for fracture should have regular bone mineral density tests. For patients eligible for Medicare, routine testing is allowed once every 2 years. The testing frequency can be increased to one year for patients who have rapidly progressing disease, those who are receiving or discontinuing medical therapy to restore bone mass, or have additional risk factors.
== END 2021-01-18 13:54 | disposition home or self-care (01) ==
LOC: HO.MAMMO 13:53
PROVIDERS: Visit Provider Internal Medicine
DX: Z13.820 Encounter for screening for osteoporosis (principal); M81.0 Age-related osteoporosis without current pathological fracture; E21.3 Hyperparathyroidism, unspecified; Z78.0 Asymptomatic menopausal state; Z79.899 Other long term (current) drug therapy; Z98.890 Other specified postprocedural states
CPT/HCPCS: 77081

== ENCOUNTER 2021-03-07 11:20 | Outpatient (REF) | payer MEDICARE, MEDICAID, SELFPAY | END 2021-03-07 11:21 | disposition home or self-care (01) | LOC: HO.LAB 11:20 | PROVIDERS: PCP Internal Medicine; Visit Provider Internal Medicine | DX: E21.3 Hyperparathyroidism, unspecified (principal); E11.65 Type 2 diabetes mellitus with hyperglycemia; E11.22 Type 2 diabetes mellitus with diabetic chronic kidney disease; E11.40 Type 2 diabetes mellitus with diabetic neuropathy, unspecified; I12.9 Hypertensive chronic kidney disease with stage 1 through stage 4 chronic kidney disease, or unspecified chronic kidney disease; N18.30 Chronic kidney disease, stage 3 unspecified; E78.5 Hyperlipidemia, unspecified; E55.9 Vitamin D deficiency, unspecified; Z98.890 Other specified postprocedural states; N39.0 Urinary tract infection, site not specified; R39.14 Feeling of incomplete bladder emptying; Z88.6 Allergy status to analgesic agent; Z88.0 Allergy status to penicillin; Z91.013 Allergy to seafood; Z79.4 Long term (current) 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; Z79.899 Other long term (current) drug therapy | CPT/HCPCS: 51798; 87086; 87088; 87186; 99202; Q3014 ==

== ENCOUNTER 2021-03-21 08:16 | Outpatient (REF) | payer MEDICARE, MEDICAID, SELFPAY ==
--- NOTE | ~2021-03-21 | US_ITS ---
EXAMINATION: US COMPLETE ABDOMEN WITH LIVER ELASTOGRAPHY CLINICAL INFORMATION: R74.01 - Elevation of levels of liver transaminase levels COMPARISON: CT abdomen and pelvis noncontrast 07/22/2020 TECHNIQUE: Real-time imaging of the abdominal viscera. Noninvasive ultrasound liver fibrosis assessment is performed using [employer] ElastPQ point quantification shear wave elastography (2D-SWE) with a C5-2 MHz transducer. Multiple elastography samples are obtained. Expansion Joint Builder notes patient study limitations with difficulty breath-holding. Exam tailored to patient capabilities. FINDINGS: PANCREAS: The visualized pancreas is normal in size and contour and echogenicity. There is no pancreatic ductal distention or retroperitoneal effusion. Portions pancreatic tail and distal body are obscured by bowel gas and not imaged. ABDOMINAL AORTA: The proximal, middle, and distal aortic segments are normal in caliber. INFERIOR VENA CAVA: Visualized portions are normal. LIVER: The liver is normal in size and smooth in contour. There is mild uniform coarsening of the hepatic echotexture without focal visible parenchymal lesion. Parenchymal echogenicity is within normal. No intrahepatic ductal dilatation. The right lobe measures 13.1 cm in length. The left lobe measures 8.2 cm in length. Portal flow is towards the liver (hepatopetal). Shear wave liver elastography median stiffness is 2.64 m/s (reference: normal median stiffness is 1.3 m/s or less). IQR/median stiffness to assess sampling precision is 0.1 (reference: good quality data set is IQR/median stiffness of 0.15 or less). GALLBLADDER: There are some coarse calcification in the gallbladder fundus is noted on CT 2020. There is no definite cholelithiasis or sludge. No subserosal edema or pericholecystic fluid. COMMON BILE DUCT: Normal in caliber measuring 0.4 cm in diameter. RIGHT KIDNEY: Right kidney measures 9.7 cm in length. There is hydronephrosis similar to the CT exam. No visible renal calculi or perinephric fluid. Renal parenchymal echogenicity appears normal. There is normal renal parenchymal thickness. LEFT KIDNEY: Left kidney measures 9.5 cm in length. There is hydronephrosis similar to the CT exam. No visible renal calculi or perinephric fluid. Renal parenchymal echogenicity appears normal. There is normal renal parenchymal thickness. SPLEEN: Normal. The spleen measures 8.7 cm in maximum dimension. FREE FLUID: None. US/US abdomen comp w elastography IMPRESSION: 1. Bilateral hydronephrosis similar to CT 07/22/2020. No perinephric fluid. No visible renal calculi. 2. Calcification gallbladder fundus similar to CT. No definite cholelithiasis. No biliary ductal dilatation. 3. Uniform coarsening hepatic parenchymal echotexture. No focal parenchymal lesion. Liver elastography measurements suggest compensated advanced chronic liver disease. 4. Patient study limitations, difficulty breath-holding. REFERENCE: Society of Radiologists in Ultrasound Liver Stiffness Thresholds (2019): LIVER STIFFNESS THRESHOLDS: *Liver Stiffness equal or less than 1.3 m/s: High probability of being normal. *Liver Stiffness less than 1.7 m/s: In the absence of other known clinical signs, rules out compensated advanced chronic liver disease. *Liver Stiffness 1.7-2.1 m/s: Suggestive of compensated advanced chronic liver disease but need further test for confirmation. *Liver Stiffness over 2.1 m/s: Rules in compensated advanced chronic liver disease. *Liver Stiffness over 2.4 m/s: Suggestive of clinically significant portal hypertension. QUALITY OF DATA SET: *IQR/Median value equal or less than 0.15 implies a quality data set. *IQR/Median value over 0.15 implies a poor quality data set. SIGNIFICANT CHANGE FROM PRIOR EXAM: Significant change if liver stiffness measurement is 10% or greater from prior exam. OTHER CONSIDERATIONS: The stage of liver fibrosis may be overestimated in the setting of acute hepatitis, liver inflammation, elevated liver function tests, hepatic vascular congestion, obstructive cholestasis, non-fasting state, and infiltrative diseases such as amyloidosis and lymphoma. In some patients with NAFLD, the liver stiffness thresholds for compensated advanced chronic liver disease may be lower. In causes other than viral hepatitis and NAFLD, liver stiffness thresholds are not well established.
== END 2021-03-21 08:17 | disposition home or self-care (01) ==
LOC: HO.US 08:16
PROVIDERS: Visit Provider Nurse Practitioner
DX: R74.01 Elevation of levels of liver transaminase levels (principal)
CPT/HCPCS: 76705; 76981

== ENCOUNTER → 2021-03-30 10:13 | Outpatient (BNVA) | payer MEDICARE, MEDICAID, SELFPAY | PROVIDERS: PCP Internal Medicine; Referring Provider Internal Medicine; Visit Provider Nurse Practitioner | DX: K75.81 Nonalcoholic steatohepatitis (NASH) (principal); K64.8 Other hemorrhoids; K64.4 Residual hemorrhoidal skin tags; L28.2 Other prurigo | CPT/HCPCS: 99212 ==

== ENCOUNTER 2021-04-24 17:46 | Outpatient (REF) | payer MEDICARE, MEDICAID, SELFPAY ==
[2021-04-24 18:02] LABS: Appearance Urine CLEAR; Color Urine STRAW; Glucose Urine UA NEG (NEG); Leukocyte Esterase Urine 3+ (NEG); Nitrite Urine NEG (NEG); PH 5.5 (5.0-8.0); Specific Gravity - Urine <= 1.005 (1.005-1.025); Urine Blood NEG (NEG); Urine Ketones NEG (NEG); Urine Protein NEG (NEG-TRACE)
[2021-04-24 18:10] LABS: Bacteria Urine 3+ /LPF; RBC Urine 0-2 /HPF (0); Squamous Epithelial Cell Urine 1+ /LPF; WBC Urine 50-75 /HPF (0-4)
== END 2021-04-24 17:47 | disposition home or self-care (01) ==
LOC: HO.LNP 17:46
PROVIDERS: Visit Provider Urology
DX: N39.0 Urinary tract infection, site not specified (principal)
CPT/HCPCS: 81001; 87086; 87088; 87186

== ENCOUNTER 2021-05-03 11:54 | Outpatient (REF) | payer MEDICARE, MEDICAID, SELFPAY ==
[2021-05-03 13:02] LABS: Alanine Aminotransferase 64 U/L (0-31); Albumin Level 3.9 g/dL (3.5-5.0); Alkaline Phosphatase 308 U/L (39-117); Anion Gap 13 (12-20); Aspartate Amino Transferase 58 U/L (5-31); Bilirubin Total 0.3 mg/dL (0.0-1.0); Blood Urea Nitrogen 40 mg/dL (9-16); Calcium 9.7 mg/dL (8.4-10.2); Carbon Dioxide 20 mmol/L (22-29); Chloride 102 mmol/L (96-108); Estimated Glomerular Filt Rate 25; Glucose Random 191 mg/dL (60-115); Phosphorus 3.6 mg/dL (2.7-4.5); Potassium 5.6 mmol/L (3.3-5.1); Sodium 129 mmol/L (135-145); Total Protein 7.7 g/dL (6.5-8.0)
[2021-05-03 13:24] LABS: Free T4 (Free Thyroxine) 1.25 ng/dL (0.71-1.85); Thyroid Stimulating Hormone 0.06 uIU/mL (0.32-4.0); Vitamin D 25-OH Total 33.3 ng/mL (>30)
[2021-05-04 13:51] LABS: Calcium (PTHI) 9.6 mg/dL (8.6-10.4); PTHI 69 pg/mL (14-64)
== END 2021-05-03 11:55 | disposition home or self-care (01) ==
LOC: HO.LAB 11:54
PROVIDERS: PCP Internal Medicine; Visit Provider Internal Medicine
DX: E21.3 Hyperparathyroidism, unspecified (principal); E03.9 Hypothyroidism, unspecified; E55.9 Vitamin D deficiency, unspecified
CPT/HCPCS: 36415; 80053; 82306; 83970; 84100; 84439; 84443

== ENCOUNTER 2021-05-04 10:02 | Outpatient (REF) | payer MEDICARE, MEDICAID, SELFPAY ==
[2021-05-04 11:09] LABS: Anion Gap 14 (12-20); Blood Urea Nitrogen 39 mg/dL (9-16); Calcium 9.5 mg/dL (8.4-10.2); Carbon Dioxide 21 mmol/L (22-29); Chloride 102 mmol/L (96-108); Estimated Glomerular Filt Rate 28; Glucose Random 204 mg/dL (60-115); Sodium 132 mmol/L (135-145)
== END 2021-05-04 10:03 | disposition home or self-care (01) ==
LOC: HO.LAB 10:02
PROVIDERS: PCP Internal Medicine; Visit Provider Internal Medicine
DX: E11.65 Type 2 diabetes mellitus with hyperglycemia (principal); E55.9 Vitamin D deficiency, unspecified
CPT/HCPCS: 36415; 80048; 82306

== ENCOUNTER 2021-05-07 15:53 | Outpatient (REF) | payer MEDICARE, MEDICAID, SELFPAY ==
[2021-05-07 16:23] LABS: Total Volume 24 Hour Urine 1225 mL
[2021-05-07 16:30] LABS: Creatinine, 24Hr Urine 0.3 G/Day (1.0-2.0); Creatinine, mg/dL 24.43
[2021-05-08 16:36] LABS: Calcium, 24 Hr Urine 15 mg/24 h; Calcium/Creatinine Ratio 44 mg/g creat (30-275); Creatinine 24Hr Urine 0.33 g/24 h (0.50-2.15)
== END 2021-05-07 15:54 | disposition home or self-care (01) ==
LOC: HO.LNP 15:53
PROVIDERS: Visit Provider Internal Medicine
DX: E21.3 Hyperparathyroidism, unspecified (principal)
CPT/HCPCS: 82340; 82570

== ENCOUNTER → 2021-05-09 11:15 | Outpatient (BNVA) | payer MEDICARE, MEDICAID, SELFPAY | PROVIDERS: PCP Internal Medicine; Visit Provider Internal Medicine | DX: E21.3 Hyperparathyroidism, unspecified (principal); E55.9 Vitamin D deficiency, unspecified; M81.0 Age-related osteoporosis without current pathological fracture; E11.22 Type 2 diabetes mellitus with diabetic chronic kidney disease; N18.30 Chronic kidney disease, stage 3 unspecified | CPT/HCPCS: 99212 ==

== ENCOUNTER → 2021-05-15 13:34 | Outpatient (BNVA) | payer MEDICARE, MEDICAID, SELFPAY | PROVIDERS: PCP Internal Medicine; Visit Provider Nurse Practitioner Gerontology | DX: E11.65 Type 2 diabetes mellitus with hyperglycemia (principal); E11.42 Type 2 diabetes mellitus with diabetic polyneuropathy; E11.22 Type 2 diabetes mellitus with diabetic chronic kidney disease; I12.9 Hypertensive chronic kidney disease with stage 1 through stage 4 chronic kidney disease, or unspecified chronic kidney disease; N18.30 Chronic kidney disease, stage 3 unspecified; E03.9 Hypothyroidism, unspecified; E78.2 Mixed hyperlipidemia; Z79.4 Long term (current) 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 | CPT/HCPCS: 82947; 83036; 99212 ==

== ENCOUNTER → 2021-06-05 11:00 | Outpatient (BNVA) | payer MEDICARE, MEDICAID, SELFPAY | PROVIDERS: PCP Internal Medicine; Visit Provider Internal Medicine Endocrinology, Diabetes & Metabolism | DX: N39.0 Urinary tract infection, site not specified (principal); R33.9 Retention of urine, unspecified | CPT/HCPCS: 51798; 96372; 99212 ==

== ENCOUNTER 2021-06-19 11:19 | Outpatient (REF) | payer MEDICARE, MEDICAID, SELFPAY ==
[2021-06-19 12:53] LABS: Estimated Glomerular Filt Rate 43
[2021-06-19 13:10] LABS: Free T4 (Free Thyroxine) 1.23 ng/dL (0.71-1.85)
[2021-06-19 13:19] LABS: Thyroid Stimulating Hormone 0.68 uIU/mL (0.32-4.0)
[2021-06-20 14:11] LABS: Calcium (PTHI) 9.6 mg/dL (8.6-10.4); PTHI 206 pg/mL (16-77)
== END 2021-06-19 11:20 | disposition home or self-care (01) ==
LOC: HO.LAB 11:19
PROVIDERS: Absent Provider Internal Medicine Endocrinology, Diabetes & Metabolism; PCP Internal Medicine; Visit Provider Internal Medicine
DX: M81.0 Age-related osteoporosis without current pathological fracture (principal); E03.9 Hypothyroidism, unspecified
CPT/HCPCS: 36415; 82565; 83970; 84439; 84443

== ENCOUNTER 2021-09-06 11:02 | Outpatient (REF) | payer MEDICARE, MEDICAID, SELFPAY | END 2021-09-06 11:03 | disposition home or self-care (01) | LOC: HO.LAB 11:02 | PROVIDERS: PCP Internal Medicine | DX: R33.9 Retention of urine, unspecified (principal) | CPT/HCPCS: 51798; 87086; 99212 ==

== ENCOUNTER → 2021-11-12 11:04 | Outpatient (BNVA) | payer MEDICARE, MEDICAID, SELFPAY | PROVIDERS: PCP Internal Medicine; Visit Provider Internal Medicine | DX: M81.0 Age-related osteoporosis without current pathological fracture (principal); E21.3 Hyperparathyroidism, unspecified; E55.9 Vitamin D deficiency, unspecified; E11.65 Type 2 diabetes mellitus with hyperglycemia | CPT/HCPCS: 99212 ==

== ENCOUNTER 2021-11-15 12:02 | Outpatient (REF) | payer MEDICARE, MEDICAID, SELFPAY ==
[2021-11-15 14:23] LABS: Estimated Average Glucose 186 mg/dL; Hemoglobin A1c % 8.1 %
[2021-11-15 14:34] LABS: Creatinine Urine 26.21 mg/dL; Microalbum/Creatinine Ratio Ur 95.3 ug/mg cr
[2021-11-15 14:37] LABS: Alanine Aminotransferase 68 U/L (0-31); Albumin Level 4.1 g/dL (3.5-5.0); Alkaline Phosphatase 323 U/L (39-117); Anion Gap 18 (12-20); Aspartate Amino Transferase 58 U/L (5-31); Bilirubin Total 0.2 mg/dL (0.0-1.0); Blood Urea Nitrogen 31 mg/dL (9-16); Calcium 10.3 mg/dL (8.4-10.2); Carbon Dioxide 23 mmol/L (22-29); Chloride 100 mmol/L (96-108); Cholesterol 155 mg/dL; Estimated Glomerular Filt Rate 38; Glucose Random 65 mg/dL (60-115); HDL Cholesterol 47 mg/dL; LDL Cholesterol Calculated 84 mg/dl; Phosphorus 4.1 mg/dL (2.7-4.5); Sodium 137 mmol/L (135-145); Total Protein 8.5 g/dL (6.5-8.0); Triglycerides 123 mg/dL
[2021-11-15 14:56] LABS: Vitamin D 25-OH Total 46.8 ng/mL (>30)
[2021-11-16 15:21] LABS: Calcium (PTHI) 10.4 mg/dL (8.6-10.4); PTHI 24 pg/mL (16-77)
[2021-11-17 08:47] LABS: LDL Cholesterol Direct 82 mg/dL (<100)
[2021-11-19 12:07] LABS: Prot Elec - Albumin 4.1 g/dL (3.8-4.8); Prot Elec - Alpha1 0.4 g/dL (0.2-0.3); Prot Elec - Alpha2 1.1 g/dL (0.5-0.9); Prot Elec - Beta 1 0.6 g/dL (0.4-0.6); Prot Elec - Beta 2 0.6 g/dL (0.2-0.5); Prot Elec - Gamma 1.9 g/dL (0.8-1.7); Prot Elec - Total Protein 8.7 g/dL (6.1-8.1)
== END 2021-11-15 12:03 | disposition home or self-care (01) ==
LOC: HO.HMGCLDS 12:02
PROVIDERS: PCP Internal Medicine; Visit Provider Internal Medicine
DX: E11.65 Type 2 diabetes mellitus with hyperglycemia (principal); M81.0 Age-related osteoporosis without current pathological fracture; E55.9 Vitamin D deficiency, unspecified; E78.2 Mixed hyperlipidemia; I10 Essential (primary) hypertension; E21.3 Hyperparathyroidism, unspecified
CPT/HCPCS: 36415; 80053; 80061; 82043; 82306; 83036; 83721; 83970; 84100; 84165; 99212

== ENCOUNTER → 2021-12-12 11:05 | Outpatient (BNVA) | payer MEDICARE, MEDICAID, SELFPAY | PROVIDERS: PCP Internal Medicine; Visit Provider Internal Medicine Endocrinology, Diabetes & Metabolism | DX: M81.0 Age-related osteoporosis without current pathological fracture (principal) | CPT/HCPCS: 96372 ==

== ENCOUNTER 2021-12-26 13:40 | Outpatient (REF) | payer MEDICARE, MEDICAID, SELFPAY ==
--- NOTE | ~2021-12-26 | US_ITS ---
EXAMINATION: US EXTREMITY, NONVASCULAR CLINICAL INFORMATION: Leg swelling COMPARISON: None TECHNIQUE: Ultrasound evaluation of the right leg in the area of swelling FINDINGS: Nonspecific subcutaneous edema is seen within the subcutaneous soft tissues in the posterior distal thigh superior to the popliteal fossa. No focal mass, cyst or drainable fluid collection is seen. US/US extremity nonvascular IMPRESSION: Focal subcutaneous edema in the soft tissues in the posterior distal thigh
== END 2021-12-26 13:41 | disposition home or self-care (01) ==
LOC: HO.HMGCX 13:40
PROVIDERS: PCP Internal Medicine; Visit Provider Internal Medicine
DX: R22.41 Localized swelling, mass and lump, right lower limb (principal)
CPT/HCPCS: 76882

== ENCOUNTER → 2021-12-31 13:49 | Outpatient (BNVA) | payer MEDICARE, MEDICAID, SELFPAY | PROVIDERS: PCP Internal Medicine; Visit Provider Surgery | DX: R22.9 Localized swelling, mass and lump, unspecified (principal); Z85.42 Personal history of malignant neoplasm of other parts of uterus | CPT/HCPCS: 99202 ==

== ENCOUNTER 2022-01-16 08:34 | Emergency (ER) | payer MEDICARE, MEDICAID, SELFPAY ==
--- NOTE | ~2022-01-16 | XR_ITS ---
EXAMINATION: XR CHEST CLINICAL INFORMATION: Weakness, rule out pneumonia. COMPARISON: 07/22/2020 chest radiograph. TECHNIQUE: Frontal view of the chest was obtained. FINDINGS: No significant abnormality is noted involving the heart, lungs, mediastinum, bony thorax or soft tissues. XR/XR chest 1V IMPRESSION: No acute cardiopulmonary process.
--- NOTE | ~2022-01-16 | CT_ITS ---
EXAMINATION: CT HEAD WITHOUT CONTRAST CLINICAL INFORMATION: Left-sided weakness. COMPARISON: Brain MRI/MRA dated 03/11/2020. TECHNIQUE: Contiguous axial imaging was performed from the skull base to vertex without intravenous administration of contrast. Coronal and sagittal reformatted images were obtained. This CT examination was performed using dose optimization techniques as appropriate, variously including the following: *Automated exposure control *Adjustment of mA and/or kV according to patient size (this includes techniques or standardized protocols for targeted exams where dose is matched to indication/reason for exam; i.e. extremities or head) *Use of iterative reconstruction technique DLP: 620 mGy-cm FINDINGS: Again seen is encephalomalacia and gliosis in the right parietal lobe with similar distribution and severity. No definitive new abnormality. There is no mass effect or midline shift. The cortical sulci are normal. The lateral ventricles are symmetrical. The third and fourth ventricles are in their normal midline position. The basilar and prepontine cisterns are unremarkable. Sections through the bony calvarium are unremarkable. The paranasal sinuses are clear. The bony orbits and orbital contents are unremarkable. Small right mastoid effusion. The left mastoid air cells are clear. CT/CT head/brain wo IV con IMPRESSION: No acute intracranial pathology. Old right parietal infarct with similar distribution and severity to the previous MRI.
[2022-01-16 08:36] VITALS: BP 140/89; PULSE 78; RESP 18; TEMP 36.2; O2SAT 99; BMI 29.7
--- NOTE | 2022-01-16 09:07 | ECG_ITS ---
Test Reason : Stroke, rule out atrial afribillation Blood Pressure : / mmHG Vent. Rate : 074 BPM Atrial Rate : 074 BPM P-R Int : 176 ms QRS Dur : 074 ms QT Int : 376 ms P-R-T Axes : 027 008 014 degrees QTc Int : 417 ms Normal sinus rhythm Normal ECG When compared with ECG of 04-FEB-2020 12:12, Vent. rate has decreased BY 40 BPM Referred By: Chris Feliciano Electronically Signed By:MAYELA SMART MD
--- NOTE | 2022-01-16 09:51 | ED.WEAKNESS ---
HPI - Weakness General Chief complaint: Weakness Stated complaint: Weakness on L side into legs Time Seen by Provider: 01/16/22 08:43 Source: patient and family (Daughter, Kennedi) Mode of arrival: ambulatory Limitations: language barrier (Patient speaks Omani, the daughter speaks both Omani and Croatian, I offered translation services but the daughter and patient refused) History of Present Illness HPI Narrative: 71-year-old female brought to emergency department by her daughter for evaluation of left-sided weakness. According to the daughter, the patient has residual left-sided weakness secondary to his stroke that 1st occurred in 2005. The patient has also had 2-3 TIAs since her 1st stroke and did have a right carotid endarterectomy. The daughter states that over the past 5 days the patient has had left upper and left lower extremity weakness. The daughter states that the weakness is more pronounced in the patient's left lower extremity. She states that when the patient stands she hesitates and seems to drag her left leg more than usual. Also the patient is having difficulty going up and down stairs secondary to her left-sided weakness. The daughter states the patient has also had some new confused over the past 5 days. The daughter describes these confused episodes as freezing before she starts to walk for staring off into space before she starts to walk and that she can walk. Patient walks with a walker. According to the daughter, the weakness is got progressively worse to the point where the patient 7 difficulty walking home, difficulty standing in the shower, difficulty when she starts walking. MD Complaint: focal weakness Onset (ago): day(s) (5) Duration: constant Location: LUE and LLE Migration: none Severity: moderate Relieving factors: none Exacerbating factors: none Associated symptoms: other (Dysuria, cough which is chronic) Related Data Home Medications Medication Instructions Recorded Confirmed metoprolol succinate 25 mg 25 mg PO BID 01/13/20 01/16/22 tablet,extended release 24 hr lancets 28 gauge #100 ea 04/25/20 12/31/21 furosemide 20 mg tablet 20 mg PO DAILY 07/20/20 01/16/22 ascorbate calcium (vitamin C) 500 500 mg PO DAILY 03/23/21 01/16/22 mg tablet levothyroxine 112 mcg tablet 112 mcg PO QAM 12/31/21 01/16/22 acetaminophen 325 mg tablet 650 mg PO Q6H PRN Pain 01/16/22 01/16/22 insulin aspart U-100 100 unit/mL 0 sliding scale dose subcut QIDACHS 01/16/22 01/16/22 (3 mL) subcutaneous pen (Novolog Flexpen U-100 Insulin aspart) Previous Rx's Medication Instructions Recorded clotrimazole 1 % vaginal cream 1 appful vaginal BEDTIME 7 days 12/15/19 (Gyne-Lotrimin 7) #45 grams cholecalciferol (vitamin D3) 50 50 mcg PO DAILY 30 days #30 caps 01/31/20 mcg (2,000 unit) capsule cyanocobalamin (vitamin B-12) 1,000 mcg PO DAILY #90 tabs 02/22/20 1,000 mcg tablet (Vitamin B-12) blood-glucose meter (FreeStyle #1 ea 04/25/20 Lite Meter kit) walker with seat and breaks #1 ea 05/15/20 Shower chair with arms #1 ea 06/16/20 raised toilet seat with arms #1 ea 06/16/20 Bedside commode #1 ea 11/07/20 hydrocortisone 2.5 % lotion 1 appl topical BID #118 mL 03/30/21 insulin degludec 200 unit/mL (3 26 unit (0.13 mL) subcut DAILY #9 05/15/21 mL) subcutaneous pen (Tresiba mL FlexTouch U-200 insulin) denosumab 60 mg/mL subcutaneous 60 mg subcut [id number] 30 days #1 mL 05/16/21 syringe (Prolia) blood sugar diagnostic (FreeStyle #100 ea 07/06/21 Lite Strips) omeprazole 20 mg capsule,delayed 20 mg PO QAM #90 caps 07/19/21 release ferrous sulfate 325 mg (65 mg 325 mg PO DAILY #60 tabs 08/14/21 iron) tablet (Feosol) atorvastatin 40 mg tablet 40 mg PO DAILY #90 tabs 10/26/21 clopidogrel 75 mg tablet 75 mg PO DAILY #90 tabs 11/06/21 methenamine hippurate 1 gram tablet 1 g PO DAILY 90 days #90 tabs 11/08/21 flash glucose sensor (FreeStyle #2 ea 11/12/21 Anglea 2 Sensor kit) nitrofurantoin 100 mg PO Q12H 7 days #14 caps 01/16/22 monohydrate/macrocrystals 100 mg capsule (Macrobid) Allergies Allergy/AdvReac Type Severity Reaction Status Date / Time aspirin [ASPIRIN] Allergy Severe SWELLING, Verified 12/31/21 14:14 swelling, rash fish derived [FISH] Allergy Mild RASH Verified 12/31/21 14:14 fish Allergy Unknown swelling Verified 12/31/21 14:14 Penicillins [PENICILLINS] Allergy Unknown SWELLING Verified 12/31/21 14:14 Review of Systems Review of Systems: Yes all other systems are reviewed and are negative [facility] Past Medical History Medical History (Updated 01/16/22 @ 13:16 by Chris Feliciano MD) Bacteremia CKD stage 3 due to type 2 diabetes mellitus CVA (cerebral vascular accident) Diabetes Diabetes type 2, uncontrolled Diabetic neuropathy Elevated liver enzymes History of non anemic vitamin B12 deficiency History of uterine fibroid HTN (hypertension) Hyperlipemia Hyperparathyroidism Hypoglycemia Hypothyroidism Iron deficiency anemia 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 Mother Pancreatic cancer Social History Social History Household Members: Family Housing: Apartment Do you presently have visiting nurse or other home services: No Alcohol intake: never Patient Tobacco Use Status: Never used Tobacco Smoked in Last 30 Days: No e-Cigarette/Vaping Use: Never Used Second Hand Smoke Exposure: No Use of substances other than those prescribed or required for medical reasons: No Advance Directives: Yes Advance Directives on File: Yes Advance Directives Date on File: 02/04/20 service: No Current occupational status: unemployed Cognitive needs: No Hearing needs: No Vision needs: Yes Physical Exam Vital Signs: Vital Signs: Last Vital Signs Temp 98.3 F 01/16/22 10:28 Pulse 77 01/16/22 13:03 Resp 17 01/16/22 12:23 BP 157/59 H 01/16/22 13:03 Pulse Ox 100 01/16/22 13:03 O2 Del Method 01/16/22 12:23 BMI result Body Mass Index 29.7 Const: General: cooperative and no acute distress Orientation/consciousness: oriented to person and oriented to place Limitations: no limitations HEENT: Head: Yes normal to inspection, Yes normocephalic and Yes atraumatic Ears: external ears normal General nose exam: Normal external nose present Face and sinus: Yes normal facial exam Mouth: Normal oral and palatal mucosa present Throat: Yes posterior oropharynx normal Eyes: General: appearance normal, both eyes and all related structures Pupils: Equal, round and reactive pupils present Neck: Neck: Yes normal visual inspection, Yes no lymphadenopathy, Yes trachea midline and Yes supple Chest: Chest palpation & inspection: normal inspection of the chest and normal palpation of entire chest wall Resp: Effort & Inspection: normal respiratory effort and able to speak in complete sentences Auscultation: clear to auscultation bilaterally Cardio: Rate: regular rate Rhythm: regular rhythm Heart sounds: S1 normal heart sound present, S2 normal heart sound present and no murmurs GI: Inspection: Yes normal to inspection Palpation (GI): Soft to palpation, nontender and no guarding Auscultation: normal bowel sounds : General: Yes no CVA tenderness Back/Spine/Pelvis: Back: no CVA tenderness Skin: General skin exam: no rashes or lesions noted Neuro: Other: Patient's gait was tested with a walker. Patient does pause slightly before walking but was able to walk in the emergency department with no significant limitations. General: oriented to person and oriented to place Cranial nerves: Yes CN's II-XII intact bilaterally and Yes Equal, round and reactive pupils present Cognition (Neuro): normal cognition Motor exam (neuro): 5/5 motor strength present throughout Extrem: General: Yes normal to inspection Psych: Appearance: grossly normal Speech and movement: Normal speech and movement present Affect: normal affect Attitude: cooperative Thought process: Normal thought process present Thought content: Normal thought content present Course Course Course Narrative: 71-year-old female with a history of stroke with residual left-sided weakness, multiple TIAs in the past who presents emergency department for evaluation of 5 days of left upper extremity left lower extremity weakness which is been getting progressively worse with difficulty standing and ambulating at home noted by the patient's daughter. Vital signs did reveal slight elevated blood pressure of 140/89 otherwise unremarkable. Physical examination revealed a nonfocal neurologic exam, patient was able to walk here in the emergency department using her walker. I did order a stroke workup to include CT scan of the brain without IV contrast. 1212: CT scan of the head revealed no acute change compared to previous MRI, laboratory evaluation is consistent with baseline labs. Urinalysis was positive for leukocyte esterase. Microscopic revealed greater than 50 WBCs with no bacteria. In reviewing the patient's previous urinalysis/microscopic/urine cultures, insert this patient may have a UTI at this point and will be treated with Macrobid 100 mg twice a day for 7 days, given her 1st dose here in the emergency department. I did discuss the patient with case management I will obtain a case management and physical therapy consult to determine disposition. 1314: Patient was evaluated by physical therapy and this felt the patient could receive physical therapy as an outpatient and the daughter agreed with this plan. The patient will be discharged home. Medications Administered Discontinued Medications Generic Name Dose Route Start Last Admin Trade Name Freq PRN Reason Stop Dose Admin Nitrofurantoin Macrocrystals 100 mg 01/16/22 12:08 01/16/22 12:36 Nitrofurantoin Monohyd/M-Cryst 100 Mg Capsule PO 01/16/22 12:09 100 mg ONCE STA Administration MDM - Weakness Lab Data Result diagrams: 01/16/22 11:21 01/16/22 11:21 Labs: Lab Results 01/16/22 01/16/22 01/16/22 Range/Units 10:16 10:16 11:12 WBC (4.8-10.8) X10*3/uL RBC (4.20-5.50) X10*6/uL Hgb (12.0-16.0) g/dl Hct (37.0-47.0) % MCV (80.0-98.0) fL MCH (27.0-33.0) pg MCHC (31.0-35.0) g/dl RDW (11.0-16.0) % Plt Count (160-400) X10*3/uL MPV (9.4-12.3) fL Immature Gran % (Auto) (0.0-0.4) % Neut % (Auto) (45-73) % Lymph % (Auto) (20-40) % [place] % (Auto) (2-11) % Eos % (Auto) (0-4) % Baso % (Auto) (0-2) % Lymph # (Auto) (1.2-4.9) X10*3/uL [place] # (Auto) (0.1-1.2) X10*3/uL Eos # (Auto) (0.0-0.4) X10*3/uL Baso # (Auto) (0.0-0.2) X10*3/uL Abs Immat Gran (auto) (0.00-0.03) X10*3/uL Absolute Neuts (auto) (2.0-8.3) x10*3/uL Absolute Nucleated RBC (0.0-0.012) X10*3/uL Nucleated RBC % (auto) (0.0-0.2) /100WBC PT (10.0-13.1) SEC INR (0.9-1.1) APTT (26.0-36.4) SEC Sodium (135-145) mmol/L Potassium (3.3-5.1) mmol/L Chloride (96-108) mmol/L Carbon Dioxide (22-29) mmol/L Anion Gap (12-20) BUN (9-16) mg/dL Creatinine (0.5-1.4) mg/dL Estim Creat Clear Calc Estimated GFR POC Glucose (60-115) mg/dL Random Glucose (60-115) mg/dL Calcium (8.4-10.2) mg/dL Total Bilirubin (0.0-1.0) mg/dL AST (5-31) U/L ALT (0-31) U/L Alkaline Phosphatase (39-117) U/L Total Creatine Kinase (26-140) U/L Total Protein (6.5-8.0) g/dL Albumin (3.5-5.0) g/dL Lipase (8-78) U/L Urine Color Yellow Urine Appearance Clear Urine pH 6.5 (5.0-9.0) Ur Specific [place] 1.010 (1.005-1.025) Urine Protein Negative (Neg-Trace) mg/dL Urine Glucose (UA) >=1000 H (Negative) mg/dL Urine Ketones Negative (Negative) mg/dL Urine Blood Trace H (Negative) Urine Nitrite Negative (Negative) Ur Leukocyte Esterase Moderate (2+) H (Negative) Urine RBC 0-2 (0-2) /HPF Urine WBC >50 H (0-5) /HPF Ur Squamous Epith Cells 0-2 (0-2) /HPF Urine Bacteria None Seen (None Seen) Hyaline Casts 0-2 (0-2) /LPF COVID-19 (MAKI) Negative (Negative) COVID-19 Clin Com See Note Influenza Type A (DESI) Negative (Negative) Influenza Type B (DESI) Negative (Negative) Influenza A & B Note See Note 01/16/22 01/16/22 01/16/22 Range/Units 11:21 11:21 12:21 WBC 5.8 (4.8-10.8) X10*3/uL RBC 3.89 L (4.20-5.50) X10*6/uL Hgb 12.0 (12.0-16.0) g/dl Hct 35.5 L (37.0-47.0) % MCV 91.3 (80.0-98.0) fL MCH 30.8 (27.0-33.0) pg MCHC 33.8 (31.0-35.0) g/dl RDW 11.7 (11.0-16.0) % Plt Count 257 (160-400) X10*3/uL MPV 9.4 (9.4-12.3) fL Immature Gran % (Auto) 0.2 (0.0-0.4) % Neut % (Auto) 70.9 (45-73) % Lymph % (Auto) 21.3 (20-40) % [place] % (Auto) 6.2 (2-11) % Eos % (Auto) 0.7 (0-4) % Baso % (Auto) 0.7 (0-2) % Lymph # (Auto) 1.2 (1.2-4.9) X10*3/uL [place] # (Auto) 0.4 (0.1-1.2) X10*3/uL Eos # (Auto) 0.0 (0.0-0.4) X10*3/uL Baso # (Auto) 0.0 (0.0-0.2) X10*3/uL Abs Immat Gran (auto) 0.01 (0.00-0.03) X10*3/uL Absolute Neuts (auto) 4.1 (2.0-8.3) x10*3/uL Absolute Nucleated RBC 0.000 (0.0-0.012) X10*3/uL Nucleated RBC % (auto) 0.0 (0.0-0.2) /100WBC PT 11.3 (10.0-13.1) SEC INR 1.0 (0.9-1.1) APTT 30.2 (26.0-36.4) SEC Sodium 133 L (135-145) mmol/L Potassium 4.5 (3.3-5.1) mmol/L Chloride 99 (96-108) mmol/L Carbon Dioxide 23 (22-29) mmol/L Anion Gap 16 (12-20) BUN 34 H (9-16) mg/dL Creatinine 1.58 H (0.5-1.4) mg/dL Estim Creat Clear Calc 26.6 Estimated GFR 32 POC Glucose (60-115) mg/dL Random Glucose 288 H (60-115) mg/dL Calcium 9.8 (8.4-10.2) mg/dL Total Bilirubin 0.3 (0.0-1.0) mg/dL AST 46 H (5-31) U/L ALT 57 H (0-31) U/L Alkaline Phosphatase 305 H (39-117) U/L Total Creatine Kinase 103 D (26-140) U/L Total Protein 8.3 H (6.5-8.0) g/dL Albumin 4.2 (3.5-5.0) g/dL Lipase 20 (8-78) U/L Urine Color Urine Appearance Urine pH (5.0-9.0) Ur Specific [place] (1.005-1.025) Urine Protein (Neg-Trace) mg/dL Urine Glucose (UA) (Negative) mg/dL Urine Ketones (Negative) mg/dL Urine Blood (Negative) Urine Nitrite (Negative) Ur Leukocyte Esterase (Negative) Urine RBC (0-2) /HPF Urine WBC (0-5) /HPF Ur Squamous Epith Cells (0-2) /HPF Urine Bacteria (None Seen) Hyaline Casts (0-2) /LPF COVID-19 (MAKI) (Negative) COVID-19 Clin Com Influenza Type A (DESI) (Negative) Influenza Type B (DESI) (Negative) Influenza A & B Note 01/16/22 Range/Units 12:37 WBC (4.8-10.8) X10*3/uL RBC (4.20-5.50) X10*6/uL Hgb (12.0-16.0) g/dl Hct (37.0-47.0) % MCV (80.0-98.0) fL MCH (27.0-33.0) pg MCHC (31.0-35.0) g/dl RDW (11.0-16.0) % Plt Count (160-400) X10*3/uL MPV (9.4-12.3) fL Immature Gran % (Auto) (0.0-0.4) % Neut % (Auto) (45-73) % Lymph % (Auto) (20-40) % [place] % (Auto) (2-11) % Eos % (Auto) (0-4) % Baso % (Auto) (0-2) % Lymph # (Auto) (1.2-4.9) X10*3/uL [place] # (Auto) (0.1-1.2) X10*3/uL Eos # (Auto) (0.0-0.4) X10*3/uL Baso # (Auto) (0.0-0.2) X10*3/uL Abs Immat Gran (auto) (0.00-0.03) X10*3/uL Absolute Neuts (auto) (2.0-8.3) x10*3/uL Absolute Nucleated RBC (0.0-0.012) X10*3/uL Nucleated RBC % (auto) (0.0-0.2) /100WBC PT (10.0-13.1) SEC INR (0.9-1.1) APTT (26.0-36.4) SEC Sodium (135-145) mmol/L Potassium (3.3-5.1) mmol/L Chloride (96-108) mmol/L Carbon Dioxide (22-29) mmol/L Anion Gap (12-20) BUN (9-16) mg/dL Creatinine (0.5-1.4) mg/dL Estim Creat Clear Calc Estimated GFR POC Glucose 252 H (60-115) mg/dL Random Glucose (60-115) mg/dL Calcium (8.4-10.2) mg/dL Total Bilirubin (0.0-1.0) mg/dL AST (5-31) U/L ALT (0-31) U/L Alkaline Phosphatase (39-117) U/L Total Creatine Kinase (26-140) U/L Total Protein (6.5-8.0) g/dL Albumin (3.5-5.0) g/dL Lipase (8-78) U/L Urine Color Urine Appearance Urine pH (5.0-9.0) Ur Specific [place] (1.005-1.025) Urine Protein (Neg-Trace) mg/dL Urine Glucose (UA) (Negative) mg/dL Urine Ketones (Negative) mg/dL Urine Blood (Negative) Urine Nitrite (Negative) Ur Leukocyte Esterase (Negative) Urine RBC (0-2) /HPF Urine WBC (0-5) /HPF Ur Squamous Epith Cells (0-2) /HPF Urine Bacteria (None Seen) Hyaline Casts (0-2) /LPF COVID-19 (MAKI) (Negative) COVID-19 Clin Com Influenza Type A (DESI) (Negative) Influenza Type B (DESI) (Negative) Influenza A & B Note Discharge Plan Discharge Clinical Impression: Weakness, Urinary tract infection Patient Disposition: Home, Self-Care Instructions: Urinary Tract Infection in Women (ED) Additional Instructions: Your laboratory evaluation was unremarkable except for possible urinary tract infection. The CT scan of your brain did not reveal any significant changes from the previous test which is reassuring as well. The physical therapist is recommending that you get home physical therapy. Take Macrobid 100 mg, 1 pill every 12 hours for 7 days for urinary tract infection. Follow-up with your doctor in 2 days. Please return to the emergency department if your symptoms get worse or if you develop any symptoms that are concerning to you. Prescriptions: New nitrofurantoin monohyd/m-cryst [Macrobid] 100 mg capsule 100 mg PO Q12H 7 Days Qty: 14 0RF Rx Instructions: must administer with a meal/food No Action clotrimazole [Gyne-Lotrimin 7] 1 % cream 1 appful vaginal BEDTIME 7 Days Qty: 45 1RF metoprolol succinate 25 mg tablet extended release 24 hr 25 mg PO BID cholecalciferol (vitamin D3) 50 mcg (2,000 unit) capsule 50 mcg PO DAILY 30 Days Qty: 30 7RF (DME) walker with seat and breaks See Rx Instructions .Route .MEDSUPPLY Qty: 1 0RF Rx Instructions: As directed (DME) raised toilet seat with arms See Rx Instructions .Route .MEDSUPPLY Qty: 1 0RF Rx Instructions: As directed ([facility]) Shower chair with arms See Rx Instructions .Route .MEDSUPPLY Qty: 1 0RF Rx Instructions: As directed furosemide 20 mg tablet 20 mg PO DAILY (DME) Bedside commode See Rx Instructions .Route .MEDSUPPLY Qty: 1 0RF Rx Instructions: As directed Prolia 60 mg/mL syringe 60 mg subcut [id number] 30 Days Qty: 1 1RF (DME) FreeStyle Lite Strips Strip See Rx Instructions .ROUTE .MEDSUPPLY Qty: 100 11RF Rx Instructions: As directed three times a day omeprazole 20 mg capsule,delayed release(DR/EC) 20 mg PO QAM Qty: 90 1RF atorvastatin 40 mg tablet 40 mg PO DAILY Qty: 90 0RF clopidogrel 75 mg tablet 75 mg PO DAILY Qty: 90 3RF methenamine hippurate 1 gram tablet 1 g PO DAILY 90 Days Qty: 90 0RF cyanocobalamin (vitamin B-12) [Vitamin B-12] 1,000 mcg Tablet 1,000 mcg PO DAILY Qty: 90 3RF ferrous sulfate [Feosol] 325 mg (65 mg iron) Tablet 325 mg PO DAILY Qty: 60 3RF insulin aspart U-100 [Novolog Flexpen U-100 Insulin] 100 unit/mL (3 mL) insulin pen 0 sliding scale dose subcut QIDACHS Protocol: Insulin Correction Scale Less than or equal to 110 ---- Give (units): 0 111 to 150 Give (units): 0 151 to 200 Give (units): 2 201 to 250 Give (units): 4 251 to 300 Give (units): 6 301 to 350 Give (units): 8 Greater than 350 Give (units): 10 Call MD if Blood Glucose > : 350 acetaminophen 325 mg Tablet 650 mg PO Q6H PRN (Reason: Pain) ascorbate calcium (vitamin C) 500 mg tablet 500 mg PO DAILY (DME) lancets 28 gauge misc See Rx Instructions topical QID Qty: 100 Rx Instructions: As directed (DME) blood-glucose meter [FreeStyle Lite Meter] Kit See Rx Instructions .ROUTE .MEDSUPPLY Qty: 1 0RF Rx Instructions: As directed 4x/day levothyroxine 112 mcg tablet 112 mcg PO QAM hydrocortisone 2.5 % lotion 1 appl topical BID Qty: 118 3RF Tresiba FlexTouch U-200 200 unit/mL (3 mL) insulin pen 26 unit subcut DAILY Qty: 9 5RF (DME) FreeStyle Angela 2 Sensor Kit See Rx Instructions .ROUTE .MEDSUPPLY Qty: 2 11RF Rx Instructions: Once every 14 days Referrals: Inocencio Salmeron [Outside]
[2022-01-16 10:28] VITALS: BP 162/43; PULSE 71; RESP 12; TEMP 36.8; O2SAT 99
[2022-01-16 10:57] LABS: COVID-19 Test Negative (Negative); IDNOW Serial# 16C4AD1C
[2022-01-16 10:58] LABS: IDNOW Serial# BCCEAD1C; Influenza A Negative (Negative); Influenza B2 Negative (Negative)
[2022-01-16 11:28] LABS: MANUAL DIFF FLAG NO
[2022-01-16 11:35] LABS: Appearance Urine Clear; Color Urine Yellow; Glucose Urine UA >=1000 mg/dL (Negative); Leukocyte Esterase Urine Moderate (2+) (Negative); Nitrite Urine Negative (Negative); PH 6.5 (5.0-9.0); UMIC TRIGGER UACC YES; Urine Blood Trace (Negative); Urine Ketones Negative (Negative); Urine Protein Negative (Neg-Trace)
[2022-01-16 11:35] LABS: Basophils Percent Auto 0.7 % (0-2); Eosinophils Percent Auto 0.7 % (0-4); Hematocrit 35.5 % (37.0-47.0); Imm Gran Abs Auto 0.01 X10*3/uL (0.00-0.03); Imm Gran Pct Auto 0.2 % (0.0-0.4); Lymphocytes Absolute Auto 1.2 X10*3/uL (1.2-4.9); Lymphocytes Percent Auto 21.3 % (20-40); Mean Corpuscular HGB Conc 33.8 g/dl (31.0-35.0); Mean Corpuscular Hemoglobin 30.8 pg (27.0-33.0); Mean Corpuscular Volume 91.3 fL (80.0-98.0); Mean Platelet Volume 9.4 fL (9.4-12.3); Monocytes Absolute Auto 0.4 X10*3/uL (0.1-1.2); Monocytes Percent Auto 6.2 % (2-11); Neutrophils Absolute Auto 4.1 x10*3/uL (2.0-8.3); Neutrophils Percent Auto 70.9 % (45-73); Platelet Count 257 X10*3/uL (160-400); Red Blood Count 3.89 X10*6/uL (4.20-5.50); Red Cell Distribution Width 11.7 % (11.0-16.0); White Blood Count 5.8 X10*3/uL (4.8-10.8)
[2022-01-16 11:38] LABS: Bacteria Urine None Seen (None Seen); Hyaline Casts Urine 0-2 /LPF (0-2); RBC Urine 0-2 /HPF (0-2); Squamous Epithelial Cell Urine 0-2 /HPF (0-2); UACC Culture Trigger YES; WBC Urine >50 /HPF (0-5)
--- NOTE | 2022-01-16 11:49 | PC.NURSE ---
a/o x 4 no sob/tushar noted lungs - cta. heart sounds regular. pupils - perrla. skin pink warm dry speaks in full sentences.. amb (i) gait steady. neuros - wnl, no deficits noted. huerta.pt/daughter aware of plan of care.
[2022-01-16 11:51] LABS: Alanine Aminotransferase 57 U/L (0-31); Albumin Level 4.2 g/dL (3.5-5.0); Alkaline Phosphatase 305 U/L (39-117); Anion Gap 16 (12-20); Aspartate Amino Transferase 46 U/L (5-31); Bilirubin Total 0.3 mg/dL (0.0-1.0); Blood Urea Nitrogen 34 mg/dL (9-16); Calcium 9.8 mg/dL (8.4-10.2); Carbon Dioxide 23 mmol/L (22-29); Chloride 99 mmol/L (96-108); Creatinine Clr Calc Pharmacy 26.6; Estimated Glomerular Filt Rate 32; Glucose Random 288 mg/dL (60-115); Lipase 20 U/L (8-78); Potassium 4.5 mmol/L (3.3-5.1); Sodium 133 mmol/L (135-145); Total Protein 8.3 g/dL (6.5-8.0)
[2022-01-16 12:23] VITALS: BP 157/59; PULSE 77; RESP 17; O2SAT 100
[2022-01-16] MEDS: Nitrofurantoin Monohyd/M-Cryst 100 MG CAPSULE PO (12:36)
[2022-01-16 12:37] LABS: Prothrombin Time 11.3 SEC (10.0-13.1)
[2022-01-16 12:39] LABS: Partial Thromboplastin Time 30.2 SEC (26.0-36.4)
[2022-01-16 12:41] LABS: Glucose, Whole Blood 252 mg/dL (60-115)
[2022-01-16 13:03] VITALS: BP 157/59; PULSE 77; O2SAT 100
--- NOTE | 2022-01-16 13:05 | PHA.MEDREC ---
Pharmacy Consult ? Medication Reconciliation Pharmacy has completed the medication reconciliation. Daughter confirmed medications. Reports using CeraVe anti intch cream which is hydrocoritsone 1% cream. Reshma Prince, Jose EduardoD
== END 2022-01-16 13:39 | disposition home or self-care (01) ==
PROVIDERS: Emergency Provider Emergency Medicine Emergency Medical Services; PCP Internal Medicine
DX: R53.1 Weakness (principal); N39.0 Urinary tract infection, site not specified; B95.61 Methicillin susceptible Staphylococcus aureus infection as the cause of diseases classified elsewhere; Z20.822 Contact with and (suspected) exposure to COVID-19; E11.9 Type 2 diabetes mellitus without complications; I69.354 Hemiplegia and hemiparesis following cerebral infarction affecting left non-dominant side; I69.398 Other sequelae of cerebral infarction; R26.89 Other abnormalities of gait and mobility; E11.22 Type 2 diabetes mellitus with diabetic chronic kidney disease; I12.9 Hypertensive chronic kidney disease with stage 1 through stage 4 chronic kidney disease, or unspecified chronic kidney disease; N18.30 Chronic kidney disease, stage 3 unspecified; Z85.42 Personal history of malignant neoplasm of other parts of uterus; Z79.4 Long term (current) 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; Z79.899 Other long term (current) drug therapy
CPT/HCPCS: 70450; 71045; 80053; 81001; 82550; 82947; 83690; 85025; 85610; 85730; 87086; 87088; 87186; 87502; 87635; 93005; 97162; 99284

== ENCOUNTER 2022-01-28 12:14 | Outpatient (REF) | payer MEDICARE, MEDICAID, SELFPAY ==
[2022-01-28 13:19] LABS: Estimated Glomerular Filt Rate 29
[2022-01-30 12:22] LABS: Calcium (PTHI) 9.1 mg/dL (8.6-10.4); PTHI 132 pg/mL (16-77)
== END 2022-01-28 12:15 | disposition home or self-care (01) ==
LOC: HO.LAB 12:14
PROVIDERS: PCP Internal Medicine; Referring Provider Internal Medicine Endocrinology, Diabetes & Metabolism; Visit Provider Internal Medicine
DX: M81.0 Age-related osteoporosis without current pathological fracture (principal)
CPT/HCPCS: 36415; 82565; 83970

== ENCOUNTER → 2022-01-30 13:57 | Outpatient (BNVA) | payer MEDICARE, MEDICAID, SELFPAY | PROVIDERS: PCP Internal Medicine; Visit Provider Internal Medicine | DX: E11.65 Type 2 diabetes mellitus with hyperglycemia (principal); E11.42 Type 2 diabetes mellitus with diabetic polyneuropathy; I12.9 Hypertensive chronic kidney disease with stage 1 through stage 4 chronic kidney disease, or unspecified chronic kidney disease; N18.30 Chronic kidney disease, stage 3 unspecified; E78.2 Mixed hyperlipidemia; E55.9 Vitamin D deficiency, unspecified; M81.0 Age-related osteoporosis without current pathological fracture; E21.3 Hyperparathyroidism, unspecified; R77.8 Other specified abnormalities of plasma proteins; Z79.4 Long term (current) 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 | CPT/HCPCS: 82947; 99212 ==

== ENCOUNTER 2022-02-06 11:02 | Outpatient (REF) | payer MEDICARE, MEDICAID, SELFPAY ==
--- NOTE | ~2022-02-06 | MM_ITS ---
EXAMINATION: MM SCREENING DIGITAL BREAST TOMOSYNTHESIS, BILATERAL CLINICAL INFORMATION: Screening. Asymptomatic. The lifetime risk of breast cancer based on the Tyrer-Cuzick Model is 2%. COMPARISON: Mammography: 12/27/2020, 01/09/2018, 06/04/2016 TECHNIQUE: Digital breast tomosynthesis is performed in both the craniocaudal and mediolateral oblique views along with computer-aided detection (CAD). Synthesized 2D images are generated from the tomosynthesis. Additional left MLO view is provided. FINDINGS: There are scattered areas of fibroglandular density (ACR BI-RADS breast composition Category b). There are no significant masses, abnormal calcifications, or other abnormalities. Parenchymal pattern is similar to prior exams. No developing density. The axilla and skin contours are unremarkable. MM/MM tomosynthesis screening BI IMPRESSION: No mammographic evidence of malignancy. ASSESSMENT: BI-RADS 1: Negative RECOMMENDATION: Routine annual mammography screening. This patient's information was entered into a reminder system with a target due date for their next mammogram.
== END 2022-02-06 11:03 | disposition home or self-care (01) ==
LOC: HO.MAMMO 11:02
PROVIDERS: PCP Internal Medicine; Visit Provider Internal Medicine
DX: Z12.31 Encounter for screening mammogram for malignant neoplasm of breast (principal)
CPT/HCPCS: 77063; 77067

== ENCOUNTER 2022-03-08 08:49 | Emergency (ER) | payer MEDICARE, MEDICAID, SELFPAY ==
--- NOTE | ~2022-03-08 | CT_ITS ---
EXAMINATION: CT HEAD WITHOUT CONTRAST CLINICAL INFORMATION: Right whole the . COMPARISON: 01/16/2022 TECHNIQUE: Contiguous axial imaging was performed from the skull base to vertex without intravenous contrast. This CT examination was performed using dose optimization techniques as appropriate, variously including the following: * Automated exposure control * Adjustment of mA and/or kV according to patient size (this includes techniques or standardized protocols for targeted exams where dose is matched to indication/reason for exam; i.e. extremities or head) Use of iterative reconstruction technique DLP: 670 mGy-cm. FINDINGS: There is no evidence of acute intracranial hemorrhage or territorial infarction. No abnormal mass effect or midline shift is seen. There is a chronic high right frontoparietal infarct. This is unchanged from prior. Beckford to white matter differentiation is otherwise well preserved. No extra-axial fluid collections are identified. No hydrocephalus. No significant volume loss. The osseous structures and soft tissues are normal. The mastoid air cells and visualized portions of the paranasal sinuses are well aerated. CT/CT head/brain wo IV con IMPRESSION: No acute intracranial pathology. Chronic high right frontoparietal infarct.
[2022-03-08 08:56] VITALS: BP 157/58; PULSE 84; RESP 20; TEMP 36.6; O2SAT 100; BMI 29.0
--- NOTE | 2022-03-08 09:19 | ED_ITS ---
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 Patient daughter states that over the last 5 days the patient has had a right eye wandering. Patient's daughter states that the patient has a history of CN 3 palsy that presented like this years ago but her artificial glass eye maker retired and she has not been able to get into a new one. Patient's daughter states that they treated it back then with an eye patch. Patient denies any dizziness, lightheadedness, abdominal pain, nausea, vomiting, fever, chills, blurry vision, double vision, loss of vision, chest pain, difficulty breathing, shortness of breath, back pain, night sweats, pain with urination, increased urinary frequency, increased urinary urgency, blood in her urine or stool, syncope or a near syncopal episode, recent trauma or falls, bowel incontinence, bladder in continence, bowel retention, bladder retention, or any other complaints at this time. Onset (ago): day(s) (5) Location: eyes (right eye ) Radiation: non-radiation Severity: mild Severity scale (1-10): 3 Relieving factors: none Exacerbating factors: none Associated symptoms: denies other symptoms Treatments prior to arrival: none Related Data Home Medications Medication Instructions Recorded Confirmed metoprolol succinate 25 mg 25 mg PO BID 01/13/20 01/30/22 tablet,extended release 24 hr lancets 28 gauge #100 ea 04/25/20 01/30/22 furosemide 20 mg tablet 20 mg PO DAILY 07/20/20 01/30/22 ascorbate calcium (vitamin C) 500 500 mg PO DAILY 03/23/21 01/30/22 mg tablet levothyroxine 112 mcg tablet 112 mcg PO QAM 12/31/21 01/30/22 acetaminophen 325 mg tablet 650 mg PO Q6H PRN Pain 01/16/22 01/30/22 insulin aspart U-100 100 unit/mL 0 sliding scale dose subcut QIDACHS 01/16/22 01/30/22 (3 mL) subcutaneous pen (Novolog FlexPen U-100 Insulin aspart) insulin degludec 200 unit/mL (3 18 unit subcut DAILY 01/30/22 01/30/22 mL) subcutaneous pen (Tresiba FlexTouch U-200 insulin) denosumab 60 mg/mL subcutaneous mg subcut 02/08/22 02/08/22 syringe (Prolia) Previous Rx's Medication Instructions Recorded clotrimazole 1 % vaginal cream 1 appful vaginal BEDTIME 7 days 12/15/19 (Gyne-Lotrimin 7) #45 grams cholecalciferol (vitamin D3) 50 50 mcg PO DAILY 30 days #30 caps 01/31/20 mcg (2,000 unit) capsule cyanocobalamin (vitamin B-12) 1,000 mcg PO DAILY #90 tabs 02/22/20 1,000 mcg tablet (Vitamin B-12) blood-glucose meter (FreeStyle #1 ea 04/25/20 Lite Meter kit) walker with seat and breaks #1 ea 05/15/20 Shower chair with arms #1 ea 06/16/20 raised toilet seat with arms #1 ea 06/16/20 Bedside commode #1 ea 11/07/20 hydrocortisone 2.5 % lotion 1 appl topical BID #118 mL 03/30/21 denosumab 60 mg/mL subcutaneous 60 mg subcut [id number] 30 days #1 mL 05/16/21 syringe (Prolia) blood sugar diagnostic (FreeStyle #100 ea 07/06/21 Lite Strips) omeprazole 20 mg capsule,delayed 20 mg PO QAM #90 caps 07/19/21 release ferrous sulfate 325 mg (65 mg 325 mg PO DAILY #60 tabs 08/14/21 iron) tablet (Feosol) flash glucose sensor (FreeStyle #2 ea 11/12/21 Angela 2 Sensor kit) nitrofurantoin 100 mg PO Q12H 7 days #14 caps 01/16/22 monohydrate/macrocrystals 100 mg capsule (Macrobid) atorvastatin 40 mg tablet 40 mg PO DAILY #90 tabs 01/30/22 clopidogrel 75 mg tablet 75 mg PO DAILY #90 tabs 01/30/22 methenamine hippurate 1 gram tablet 1 g PO DAILY 90 days #90 tabs 02/08/22 Allergies Allergy/AdvReac Type Severity Reaction Status Date / Time aspirin [ASPIRIN] Allergy Severe SWELLING, Verified 01/30/22 14:15 swelling, rash fish derived [FISH] Allergy Mild RASH Verified 01/30/22 14:15 fish Allergy Unknown swelling Verified 01/30/22 14:15 Penicillins [PENICILLINS] Allergy Unknown SWELLING Verified 01/30/22 14:15 Review of Systems Constitutional: Constitutional: Reports no additional constitutional complaints, Denies chills, Denies fever(s) and Denies night sweats Eyes: Eyes: Reports no additional eye complaints, Denies blurry vision, Denies change in vision, Denies diplopia, Denies eye discharge, Denies loss of vision, Denies eye pain and Reports other (right eye wandering) ENT: Denies dizziness Cardiovascular: Cardiovascular: Reports no additional cardiovascular complaints, Denies chest pain, Denies lightheadedness, Denies Loss of Consciousness and Denies dyspnea Respiratory: Respiratory: Reports no additional respiratory complaints and Denies dyspnea Gastrointestinal: Gastrointestinal: Reports no additional gastrointestinal complaints, Denies abdominal pain, Denies melena, Denies hematochezia, Denies change in bowel habits and Denies change in stool character Genitourinary: Genitourinary: Denies hematuria, Denies urinary frequency, Denies dysuria, Denies urinary incontinence, Denies urinary hesitancy and Denies urinary urgency Musculoskeletal: Musculoskeletal: Reports no additional musculoskeletal complaints, Denies numbness and Denies tingling Neurologic: Denies dizziness, Denies loss of vision, Denies numbness and Denies tingling Psychiatric: Psychiatric: Reports no additional psychiatric complaints Endocrine: Endocrine: Reports no additional endocrine complaints Hematologic/Lymphatic: Hematologic/Lymphatic: Reports no additional hematologic/lymphatic complaints Allergic/Immunologic: Allergic/Immunologic: Reports no additional allergic/immunologic complaints [facility] Past Medical History Attestation statement: The following information was validated with the patient. 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 Mother Pancreatic cancer Social History Social History Household Members: Family Housing: Apartment Do you presently have visiting nurse or other home services: No Alcohol intake: never Patient Tobacco Use Status: Never used Tobacco e-Cigarette/Vaping Use: Never Used Second Hand Smoke Exposure: No Advance Directives: Yes Advance Directives on File: Yes Advance Directives Date on File: 02/04/20 service: No Current occupational status: unemployed Cognitive needs: No Hearing needs: No Vision needs: Yes Physical Exam ED Vital Signs: Vital Signs - 24 hr 03/08/22 08:56 03/08/22 09:23 Temperature 97.8 F 97.6 F Pulse Rate 84 85 Respiratory Rate 20 16 Blood Pressure 157/58 H 139/47 L Pulse Oximetry 100 98 Oxygen Delivery Method Room Air Room Air BMI result Body Mass Index 29.0 Const General: cooperative, no acute distress, alert and awake Nutritional Appearance: well nourished Orientation/consciousness: patient oriented x3 Limitations: no limitations HENMT Head: Yes normal to inspection and Yes atraumatic Ears: hearing grossly normal bilaterally and external ears normal General nose exam: Normal external nose present, no nasal discharge noted and no epistaxis Face and sinus: Yes normal facial exam, No abrasion and No laceration Mouth: Normal oral and palatal mucosa present, no drooling and no muffled voice Eyes General: appearance normal, both eyes and all related structures Periorbital: periorbital findings normal Eyelids: Yes eyelids normal Conjunctivae: conjunctivae normal Pupils: Equal, round and reactive pupils present EOM: EOMs intact bilaterally Neck Neck: Yes normal visual inspection, Yes full ROM and Yes no lymphadenopathy Chest Chest palpation & inspection: normal inspection of the chest Resp Effort & Inspection: normal respiratory effort and able to speak in complete sentences Auscultation: clear to auscultation bilaterally Cardio Rate: regular rate Rhythm: regular rhythm GI Inspection: Yes normal to inspection Palpation (GI): Soft to palpation, not firm, nontender, no guarding and not rigid Neuro General: patient oriented x3 and moves all extremities Cranial nerves: Yes Equal, round and reactive pupils present Cognition (Neuro): normal cognition Motor exam (neuro): 5/5 motor strength present throughout Sensory Exam: Normal double simultaneous stimulation for sensation Coordination: [id number] test normal Extrem General: Yes normal to inspection, Yes full ROM and Yes capillary refill normal Psych Appearance: grossly normal Mental Status: mental status grossly normal Affect: normal affect Attitude: cooperative Thought process: Normal thought process present Thought content: Normal thought content present Insight: Good insight present (Psych) Medical Decision Making Medical Decision Making MDM Narrative: Patient is a 71 year old assigned female at with a history of HTN, DM, CVA, and CN 3 palsy presenting to the emergency department today with a wanderin g right eye. Patient's physical exam was unremarkable. Patient's blood work showed an elevated glucose and adjusted sodium of 133 that are both the patient's baseline. Patient's head CT showed no acute process. I explained my physical exam findings as well as all test results to the patient and the patient's daughter. I answered all questions asked by the patient and the patient's daughter. I stressed the importance of the patient taking her medication as prescribed. I stressed the importance of the patient following up with her primary care provider and an artificial glass eye maker. I stressed the importance of the patient returning to the emergency department immediately if her symptoms were to worsen or if she were to develop any dizziness, shortness of breath, difficulty breathing, chest pain, blurry vision, loss of vision, nausea, vomiting, abdominal pain, fever, chills, back pain, or any other complaints. Patient and the patient's daughter verbalized agreement and understanding with this treatment plan and discharge. Differential Diagnosis Differential Diagnoses: The differential diagnosis associated with the presentation includes CN 3 palsy Lab Data MDM Lab Attestation statement: I reviewed the patient's lab results. 03/08/22 10:51 03/08/22 10:51 Labs: Lab Results 01/08/2303/08/22 03/08/22 Range/Units 10:51 10:51 10:51 WBC 5.8 (4.8-10.8) X10*3/uL RBC 3.63 L (4.20-5.50) X10*6/uL Hgb 11.1 L (12.0-16.0) g/dl Hct 32.2 L (37.0-47.0) % MCV 88.7 (80.0-98.0) fL MCH 30.6 (27.0-33.0) pg MCHC 34.5 (31.0-35.0) g/dl RDW 11.7 (11.0-16.0) % Plt Count 250 (160-400) X10*3/uL MPV 9.4 (9.4-12.3) fL Immature Gran % (Auto) 0.3 (0.0-0.4) % Neut % (Auto) 73.8 H (45-73) % Lymph % (Auto) 17.9 L (20-40) % Republic % (Auto) 6.2 (2-11) % Eos % (Auto) 1.5 (0-4) % Baso % (Auto) 0.3 (0-2) % Lymph # (Auto) 1.0 L (1.2-4.9) X10*3/uL Republic # (Auto) 0.4 (0.1-1.2) X10*3/uL Eos # (Auto) 0.1 (0.0-0.4) X10*3/uL Baso # (Auto) 0.0 (0.0-0.2) X10*3/uL Abs Immat Gran (auto) 0.02 (0.00-0.03) X10*3/uL Absolute Neuts (auto) 4.3 (2.0-8.3) x10*3/uL Absolute Nucleated RBC 0.000 (0.0-0.012) X10*3/uL Nucleated RBC % (auto) 0.0 (0.0-0.2) /100WBC ESR 66 H (0-20) MM/HR Sodium 129 L (135-145) mmol/L Potassium 5.5 H D (3.3-5.1) mmol/L Chloride 99 (96-108) mmol/L Carbon Dioxide 20 L (22-29) mmol/L Anion Gap 16 (12-20) BUN 26 H (9-16) mg/dL Creatinine 1.35 (0.5-1.4) mg/dL Estim Creat Clear Calc 30.9 Estimated GFR 39 Random Glucose 354 H* (60-115) mg/dL Calcium 10.2 (8.4-10.2) mg/dL Total Bilirubin 0.3 (0.0-1.0) mg/dL AST 65 H (5-31) U/L ALT 83 H (0-31) U/L Alkaline Phosphatase 292 H (39-117) U/L C-Reactive Protein 0.61 H (< or = 0.50) mg/dL Total Protein 8.0 (6.5-8.0) g/dL Albumin 3.9 (3.5-5.0) g/dL Independent Interpretation I performed an independent interpretation of an: CT Scan Interpretation: My interpretation is in agreement with the radiologist's impression of this imaging study. EXAMINATION: CT HEAD WITHOUT CONTRAST CLINICAL INFORMATION: Right whole the . COMPARISON: 01/16/2022 TECHNIQUE: Contiguous axial imaging was performed from the skull base to vertex without intravenous contrast. This CT examination was performed using dose optimization techniques as appropriate, variously including the following: *? Automated exposure control *? Adjustment of mA and/or kV according to patient size (this includes techniques or standardized protocols for targeted exams where dose is matched to indication/reason for exam; i.e. extremities or head) Use of iterative reconstruction technique DLP: 670 mGy-cm. FINDINGS: There is no evidence of acute intracranial hemorrhage or territorial infarction. No abnormal mass effect or midline shift is seen. There is a chronic high right frontoparietal infarct. This is unchanged from prior. Beckford to white matter differentiation is otherwise well preserved. No extra-axial fluid collections are identified. No hydrocephalus. No significant volume loss.? The osseous structures and soft tissues are normal. The mastoid air cells and visualized portions of the paranasal sinuses are well aerated. ? CT/CT head/brain wo IV con IMPRESSION: No acute intracranial pathology. Chronic high right frontoparietal infarct. Dictated By: Joon Morales MD Signed By: Electronically signed by Joon Morales MD 03/08/22 1017 Independent Historian Clinical information obtained from an independent historian. History obtained from or confirmed by: Other (patient's daughter) Chronic Conditions Patient?s care impacted by: Diabetes and Hypertension Discharge Plan Discharge Clinical Impression: 3rd cranial nerve palsy Patient Disposition: Home, Self-Care Additional Instructions: Follow up with your primary care provider and opthalmology. Return to the emergency department immediately if your symptoms worsen or if you develop any dizziness, shortness of breath, difficulty breathing, chest pain, blurry vision, loss of vision, nausea, vomiting, abdominal pain, fever, chills, back pain, or any other complaints. Prescriptions: No Action clotrimazole [Gyne-Lotrimin 7] 1 % cream 1 appful vaginal BEDTIME 7 Days Qty: 45 1RF metoprolol succinate 25 mg tablet extended release 24 hr 25 mg PO BID cholecalciferol (vitamin D3) 50 mcg (2,000 unit) capsule 50 mcg PO DAILY 30 Days Qty: 30 7RF (DME) walker with seat and breaks See Rx Instructions .Route .MEDSUPPLY Qty: 1 0RF Rx Instructions: As directed (DME) raised toilet seat with arms See Rx Instructions .Route .MEDSUPPLY Qty: 1 0RF Rx Instructions: As directed ([facility] [place]) Shower chair with arms See Rx Instructions .Route .MEDSUPPLY Qty: 1 0RF Rx Instructions: As directed furosemide 20 mg tablet 20 mg PO DAILY (DME) Bedside commode See Rx Instructions .Route .MEDSUPPLY Qty: 1 0RF Rx Instructions: As directed Prolia 60 mg/mL syringe 60 mg subcut [id number] 30 Days Qty: 1 1RF (DME) FreeStyle Lite Strips Strip See Rx Instructions .ROUTE .MEDSUPPLY Qty: 100 11RF Rx Instructions: As directed three times a day omeprazole 20 mg capsule,delayed release(DR/EC) 20 mg PO QAM Qty: 90 1RF clopidogrel 75 mg tablet 75 mg PO DAILY Qty: 90 3RF atorvastatin 40 mg tablet 40 mg PO DAILY Qty: 90 0RF methenamine hippurate 1 gram tablet 1 g PO DAILY 90 Days Qty: 90 0RF cyanocobalamin (vitamin B-12) [Vitamin B-12] 1,000 mcg Tablet 1,000 mcg PO DAILY Qty: 90 3RF ferrous sulfate [Feosol] 325 mg (65 mg iron) Tablet 325 mg PO DAILY Qty: 60 3RF Prolia 60 mg/mL syringe subcut insulin aspart U-100 [Novolog FlexPen U-100 Insulin] 100 unit/mL (3 mL) insulin pen 0 sliding scale dose subcut QIDACHS Protocol: Insulin Correction Scale Less than or equal to 110 ---- Give (units): 0 111 to 150 Give (units): 0 151 to 200 Give (units): 2 201 to 250 Give (units): 4 251 to 300 Give (units): 6 301 to 350 Give (units): 8 Greater than 350 Give (units): 10 Call MD if Blood Glucose > : 350 acetaminophen 325 mg Tablet 650 mg PO Q6H PRN (Reason: Pain) nitrofurantoin monohyd/m-cryst [Macrobid] 100 mg capsule 100 mg PO Q12H 7 Days Qty: 14 0RF Rx Instructions: must administer with a meal/food ascorbate calcium (vitamin C) 500 mg tablet 500 mg PO DAILY (DME) lancets 28 gauge misc See Rx Instructions topical QID Qty: 100 Rx Instructions: As directed (DME) blood-glucose meter [FreeStyle Lite Meter] Kit See Rx Instructions .ROUTE .MEDSUPPLY Qty: 1 0RF Rx Instructions: As directed 4x/day Tresiba FlexTouch U-200 200 unit/mL (3 mL) insulin pen 18 unit subcut DAILY levothyroxine 112 mcg tablet 112 mcg PO QAM hydrocortisone 2.5 % lotion 1 appl topical BID Qty: 118 3RF (DME) FreeStyle Angela 2 Sensor Kit See Rx Instructions .ROUTE .MEDSUPPLY Qty: 2 11RF Rx Instructions: Once every 14 days Referrals: Brad Marte [Physician] - (Call to follow up and 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 ) Kimi Patino MD [Primary Care Provider] - Interventions: ED Discharge Assessment Last Done: 03/08/22 12:36 Discharge Date/Time: 03/08/22 12:37 Print Language: Cook Islander
[2022-03-08 09:23] VITALS: BP 139/47; PULSE 85; RESP 16; TEMP 36.4; O2SAT 98
[2022-03-08 10:56] LABS: MANUAL DIFF FLAG NO
[2022-03-08 11:00] LABS: Basophils Percent Auto 0.3 % (0-2); Eosinophils Absolute Auto 0.1 X10*3/uL (0.0-0.4); Eosinophils Percent Auto 1.5 % (0-4); Hematocrit 32.2 % (37.0-47.0); Hemoglobin 11.1 g/dl (12.0-16.0); Imm Gran Abs Auto 0.02 X10*3/uL (0.00-0.03); Imm Gran Pct Auto 0.3 % (0.0-0.4); Lymphocytes Percent Auto 17.9 % (20-40); Mean Corpuscular HGB Conc 34.5 g/dl (31.0-35.0); Mean Corpuscular Hemoglobin 30.6 pg (27.0-33.0); Mean Corpuscular Volume 88.7 fL (80.0-98.0); Mean Platelet Volume 9.4 fL (9.4-12.3); Monocytes Absolute Auto 0.4 X10*3/uL (0.1-1.2); Monocytes Percent Auto 6.2 % (2-11); Neutrophils Absolute Auto 4.3 x10*3/uL (2.0-8.3); Neutrophils Percent Auto 73.8 % (45-73); Platelet Count 250 X10*3/uL (160-400); Red Blood Count 3.63 X10*6/uL (4.20-5.50); Red Cell Distribution Width 11.7 % (11.0-16.0); White Blood Count 5.8 X10*3/uL (4.8-10.8)
[2022-03-08 11:29] LABS: Alanine Aminotransferase 83 U/L (0-31); Albumin Level 3.9 g/dL (3.5-5.0); Alkaline Phosphatase 292 U/L (39-117); Anion Gap 16 (12-20); Aspartate Amino Transferase 65 U/L (5-31); Bilirubin Total 0.3 mg/dL (0.0-1.0); Blood Urea Nitrogen 26 mg/dL (9-16); C Reactive Protein 0.61 mg/dL (< or = 0.50); Calcium 10.2 mg/dL (8.4-10.2); Carbon Dioxide 20 mmol/L (22-29); Chloride 99 mmol/L (96-108); Creatinine Clr Calc Pharmacy 30.9; Estimated Glomerular Filt Rate 39; Glucose Random 354 mg/dL (60-115); Potassium 5.5 mmol/L (3.3-5.1); Sodium 129 mmol/L (135-145)
[2022-03-08 11:37] LABS: Erythrocyte Sedimentation Rate 66 MM/HR (0-20)
== END 2022-03-08 12:37 | disposition home or self-care (01) ==
PROVIDERS: Physician Assistant Medical; Emergency Provider Emergency Medicine; PCP Internal Medicine
DX: H49.01 Third [oculomotor] nerve palsy, right eye (principal); Z86.73 Personal history of transient ischemic attack (TIA), and cerebral infarction without residual deficits; Z79.899 Other long term (current) drug therapy
CPT/HCPCS: 36415; 70450; 80053; 85025; 85652; 86140; 99283; 99284

== ENCOUNTER → 2022-03-11 09:41 | Outpatient (BNVA) | payer MEDICARE, MEDICAID, SELFPAY | PROVIDERS: PCP Internal Medicine; Referring Provider Internal Medicine; Visit Provider Surgery | DX: R33.9 Retention of urine, unspecified (principal); N39.0 Urinary tract infection, site not specified; R78.81 Bacteremia; R39.14 Feeling of incomplete bladder emptying; E11.65 Type 2 diabetes mellitus with hyperglycemia; E11.21 Type 2 diabetes mellitus with diabetic nephropathy; N18.30 Chronic kidney disease, stage 3 unspecified; Z79.899 Other long term (current) drug therapy; Z79.4 Long term (current) 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 | CPT/HCPCS: 51798; 99212 ==

== ENCOUNTER 2022-04-02 14:13 | Outpatient (REF) | payer MEDICARE, MEDICAID, SELFPAY ==
[2022-04-02 16:34] LABS: Appearance Urine Clear; Color Urine Yellow; Glucose Urine UA Negative (Negative); Leukocyte Esterase Urine Large (3+) (Negative); Nitrite Urine Negative (Negative); UMIC TRIGGER UACC YES; Urine Blood Negative (Negative); Urine Ketones Negative (Negative); Urine Protein Negative (Neg-Trace)
[2022-04-02 16:39] LABS: Bacteria Urine None Seen (None Seen); Hyaline Casts Urine 0-2 /LPF (0-2); RBC Urine 0-2 /HPF (0-2); Squamous Epithelial Cell Urine 0-2 /HPF (0-2); UACC Culture Trigger YES; WBC Urine >50 /HPF (0-5)
[2022-04-02 16:45] LABS: Hematocrit 32.5 % (37.0-47.0); Hemoglobin 11.2 g/dl (12.0-16.0)
[2022-04-02 17:11] LABS: Alanine Aminotransferase 80 U/L (0-31); Albumin Level 3.8 g/dL (3.5-5.0); Alkaline Phosphatase 257 U/L (39-117); Anion Gap 17 (12-20); Aspartate Amino Transferase 88 U/L (5-31); Bilirubin Total 0.3 mg/dL (0.0-1.0); Blood Urea Nitrogen 33 mg/dL (9-16); Calcium 9.7 mg/dL (8.4-10.2); Carbon Dioxide 23 mmol/L (22-29); Chloride 97 mmol/L (96-108); Estimated Glomerular Filt Rate 35; Glucose Random 213 mg/dL (60-115); Potassium 5.7 mmol/L (3.3-5.1); Sodium 131 mmol/L (135-145)
== END 2022-04-02 14:14 | disposition home or self-care (01) ==
LOC: HO.HMGCLDS 14:13
PROVIDERS: PCP Internal Medicine; Visit Provider Internal Medicine
DX: R41.0 Disorientation, unspecified (principal)
CPT/HCPCS: 36415; 80053; 81001; 85014; 85018; 87086

== ENCOUNTER 2022-04-03 12:52 | Emergency (ER) | payer MEDICARE, MEDICAID, SELFPAY ==
[2022-04-03 13:10] VITALS: BP 166/52; PULSE 73; RESP 18; TEMP 36.4; O2SAT 100; BMI 28.8
--- NOTE | 2022-04-03 13:10 | ED.RECABL ---
HPI - Recheck/Abnormal Lab/Rx General Chief Complaint: Recheck/Abnormal Lab/Rx Stated Complaint: Abnormal labs Time Seen by Provider: 04/03/22 18:15 Related Data Home Medications Medication Instructions Recorded Confirmed metoprolol succinate 25 mg 25 mg PO BID 01/13/20 04/02/22 tablet,extended release 24 hr lancets 28 gauge #100 ea 04/25/20 04/02/22 furosemide 20 mg tablet 20 mg PO DAILY 07/20/20 04/02/22 acetaminophen 325 mg tablet 650 mg PO Q6H PRN Pain 01/16/22 04/02/22 insulin aspart U-100 100 unit/mL 0 sliding scale dose subcut QIDACHS 01/16/22 04/02/22 (3 mL) subcutaneous pen (Novolog FlexPen U-100 Insulin aspart) insulin degludec 200 unit/mL (3 18 unit subcut DAILY 01/30/22 04/02/22 mL) subcutaneous pen (Tresiba FlexTouch U-200 insulin) levothyroxine 112 mcg tablet 110 mcg PO QAM 04/02/22 04/02/22 Previous Rx's Medication Instructions Recorded clotrimazole 1 % vaginal cream 1 appful vaginal BEDTIME 7 days 12/15/19 (Gyne-Lotrimin 7) #45 grams cholecalciferol (vitamin D3) 50 50 mcg PO DAILY 30 days #30 caps 01/31/20 mcg (2,000 unit) capsule cyanocobalamin (vitamin B-12) 1,000 mcg PO DAILY #90 tabs 02/22/20 1,000 mcg tablet (Vitamin B-12) blood-glucose meter (FreeStyle #1 ea 04/25/20 Lite Meter kit) walker with seat and breaks #1 ea 05/15/20 Shower chair with arms #1 ea 06/16/20 raised toilet seat with arms #1 ea 06/16/20 Bedside commode #1 ea 11/07/20 hydrocortisone 2.5 % lotion 1 appl topical BID #118 mL 03/30/21 denosumab 60 mg/mL subcutaneous 60 mg subcut [id number] 30 days #1 mL 05/16/21 syringe (Prolia) blood sugar diagnostic (FreeStyle #100 ea 07/06/21 Lite Strips) omeprazole 20 mg capsule,delayed 20 mg PO QAM #90 caps 07/19/21 release ferrous sulfate 325 mg (65 mg 325 mg PO DAILY #60 tabs 08/14/21 iron) tablet (Feosol) flash glucose sensor (FreeStyle #2 ea 11/12/21 Angela 2 Sensor kit) atorvastatin 40 mg tablet 40 mg PO DAILY #90 tabs 01/30/22 clopidogrel 75 mg tablet 75 mg PO DAILY #90 tabs 01/30/22 methenamine hippurate 1 gram tablet 1 g PO DAILY 90 days #90 tabs 02/08/22 ascorbate calcium (vitamin C) 500 500 mg PO DAILY 90 days #90 tabs 03/11/22 mg tablet cephalexin 500 mg capsule 1,000 mg PO BID #14 caps 04/03/22 Allergies Allergy/AdvReac Type Severity Reaction Status Date / Time aspirin [ASPIRIN] Allergy Severe SWELLING, Verified 04/02/22 13:49 swelling, rash fish derived [FISH] Allergy Mild RASH Verified 04/02/22 13:49 fish Allergy Unknown swelling Verified 04/02/22 13:49 Penicillins [PENICILLINS] Allergy Unknown SWELLING Verified 04/02/22 13:49 PMFSH Past Medical History Medical History Abnormal SPEP Bacteremia CKD stage 3 due to type 2 diabetes mellitus CVA (cerebral vascular accident) Diabetes Diabetes type 2, uncontrolled Diabetic neuropathy Elevated liver enzymes History of non anemic vitamin B12 deficiency History of uterine fibroid HTN (hypertension) Hyperlipemia Hyperparathyroidism Hypoglycemia Hypothyroidism Iron deficiency anemia 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 Mother Pancreatic cancer Social History Social History Household Members: Family Housing: Apartment Do you presently have visiting nurse or other home services: No Alcohol intake: current Alcohol intake frequency: holidays/special occasions only Patient Tobacco Use Status: Never used Tobacco Smoked in Last 30 Days: No e-Cigarette/Vaping Use: Never Used Second Hand Smoke Exposure: No Use of substances other than those prescribed or required for medical reasons: No Advance Directives: Yes Advance Directives on File: Yes Advance Directives Date on File: 02/04/20 service: No Current occupational status: unemployed Cognitive needs: No Hearing needs: No Vision needs: Yes Physical Exam Vital Signs: Vital Signs: Last Vital Signs Temp 97.1 F 04/03/22 20:25 Pulse 84 04/03/22 20:25 Resp 16 04/03/22 20:25 BP 142/89 H 04/03/22 20:25 Pulse Ox 97 04/03/22 20:25 O2 Del Method 04/03/22 20:25 BMI result Body Mass Index 28.8 Course Course Course Narrative: This is rapid medical exam. deferred additional HPI, ROS, PE to primary provider. 71 yo female w/ history DM, HTN, CVA with left sided deficits, CKD here with complaints of UTI (not on antibiotics) , abnormal labs drawn yesterday. Daughter feels patient is confused. Had wellness check yesterday prompting labs, urine testing. Reviewed labs which show mild NIKKI, +UTI from 04/02. Will repeat labs, UA today. VSS Medications Administered Discontinued Medications Generic Name Dose Route Start Last Admin Trade Name Freq PRN Reason Stop Dose Admin Sodium Chloride 1,000 mls @ 999 mls/hr 04/03/22 18:45 04/03/22 19:58 Ns IV 04/03/22 19:45 Infused .Q1H1M MICHAEL Infusion Ceftriaxone Sodium 1 gm/ 50 mls @ 100 mls/hr 04/03/22 18:32 04/03/22 19:58 Sodium Chloride IV 04/03/22 19:01 Infused ONCE ONE Infusion Insulin Human Regular 6 unit 04/03/22 18:32 04/03/22 19:04 Insulin Regular, Human 100 Unit/Ml 3 Ml Vial 0.1 unit/kg (6 unit) 04/03/22 18:33 6 unit IVPUSH Administration ONCE ONE Medical Decision Making Lab Data 04/03/22 13:34 04/03/22 13:34 Labs: Lab Results 04/03/22 04/03/22 04/03/22 Range/Units 13:34 13:34 19:12 WBC 6.3 (4.8-10.8) X10*3/uL RBC 3.62 L (4.20-5.50) X10*6/uL Hgb 11.2 L (12.0-16.0) g/dl Hct 32.4 L (37.0-47.0) % MCV 89.5 (80.0-98.0) fL MCH 30.9 (27.0-33.0) pg MCHC 34.6 (31.0-35.0) g/dl RDW 11.8 (11.0-16.0) % Plt Count 246 (160-400) X10*3/uL MPV 9.4 (9.4-12.3) fL Immature Gran % (Auto) 0.2 (0.0-0.4) % Neut % (Auto) 72.0 (45-73) % Lymph % (Auto) 19.6 L (20-40) % Phelps % (Auto) 6.5 (2-11) % Eos % (Auto) 1.1 (0-4) % Baso % (Auto) 0.6 (0-2) % Lymph # (Auto) 1.2 (1.2-4.9) X10*3/uL Phelps # (Auto) 0.4 (0.1-1.2) X10*3/uL Eos # (Auto) 0.1 (0.0-0.4) X10*3/uL Baso # (Auto) 0.0 (0.0-0.2) X10*3/uL Abs Immat Gran (auto) 0.01 (0.00-0.03) X10*3/uL Absolute Neuts (auto) 4.6 (2.0-8.3) x10*3/uL Absolute Nucleated RBC 0.000 (0.0-0.012) X10*3/uL Nucleated RBC % (auto) 0.0 (0.0-0.2) /100WBC Sodium 130 L (135-145) mmol/L Potassium 4.2 D (3.3-5.1) mmol/L Chloride 97 (96-108) mmol/L Carbon Dioxide 24 (22-29) mmol/L Anion Gap 13 (12-20) BUN 33 H (9-16) mg/dL Creatinine 1.41 H (0.5-1.4) mg/dL Estim Creat Clear Calc 29.4 Estimated GFR 37 POC Glucose (60-115) mg/dL Random Glucose 317 H (60-115) mg/dL Lactic Acid 1.1 (0.5-2.0) mmol/L Calcium 9.5 (8.4-10.2) mg/dL Total Bilirubin 0.3 (0.0-1.0) mg/dL Direct Bilirubin < 0.2 (0.0-0.5) mg/dL AST 59 H (5-31) U/L ALT 78 H (0-31) U/L Alkaline Phosphatase 259 H (39-117) U/L Total Protein 7.8 (6.5-8.0) g/dL Albumin 4.0 (3.5-5.0) g/dL Urine Color Urine Appearance Urine pH (5.0-9.0) Ur Specific [place] (1.005-1.025) Urine Protein (Neg-Trace) mg/dL Urine Glucose (UA) (Negative) mg/dL Urine Ketones (Negative) mg/dL Urine Blood (Negative) Urine Nitrite (Negative) Ur Leukocyte Esterase (Negative) Urine RBC (0-2) /HPF Urine WBC (0-5) /HPF Ur Squamous Epith Cells (0-2) /HPF Urine Bacteria (None Seen) Hyaline Casts (0-2) /LPF 04/03/22 04/03/22 Range/Units 19:32 20:18 WBC (4.8-10.8) X10*3/uL RBC (4.20-5.50) X10*6/uL Hgb (12.0-16.0) g/dl Hct (37.0-47.0) % MCV (80.0-98.0) fL MCH (27.0-33.0) pg MCHC (31.0-35.0) g/dl RDW (11.0-16.0) % Plt Count (160-400) X10*3/uL MPV (9.4-12.3) fL Immature Gran % (Auto) (0.0-0.4) % Neut % (Auto) (45-73) % Lymph % (Auto) (20-40) % Phelps % (Auto) (2-11) % Eos % (Auto) (0-4) % Baso % (Auto) (0-2) % Lymph # (Auto) (1.2-4.9) X10*3/uL Phelps # (Auto) (0.1-1.2) X10*3/uL Eos # (Auto) (0.0-0.4) X10*3/uL Baso # (Auto) (0.0-0.2) X10*3/uL Abs Immat Gran (auto) (0.00-0.03) X10*3/uL Absolute Neuts (auto) (2.0-8.3) x10*3/uL Absolute Nucleated RBC (0.0-0.012) X10*3/uL Nucleated RBC % (auto) (0.0-0.2) /100WBC Sodium (135-145) mmol/L Potassium (3.3-5.1) mmol/L Chloride (96-108) mmol/L Carbon Dioxide (22-29) mmol/L Anion Gap (12-20) BUN (9-16) mg/dL Creatinine (0.5-1.4) mg/dL Estim Creat Clear Calc Estimated GFR POC Glucose 140 H (60-115) mg/dL Random Glucose (60-115) mg/dL Lactic Acid (0.5-2.0) mmol/L Calcium (8.4-10.2) mg/dL Total Bilirubin (0.0-1.0) mg/dL Direct Bilirubin (0.0-0.5) mg/dL AST (5-31) U/L ALT (0-31) U/L Alkaline Phosphatase (39-117) U/L Total Protein (6.5-8.0) g/dL Albumin (3.5-5.0) g/dL Urine Color Yellow Urine Appearance Cloudy Urine pH 6.0 (5.0-9.0) Ur Specific [place] 1.010 (1.005-1.025) Urine Protein Negative (Neg-Trace) mg/dL Urine Glucose (UA) 250 H (Negative) mg/dL Urine Ketones Negative (Negative) mg/dL Urine Blood Trace H (Negative) Urine Nitrite Negative (Negative) Ur Leukocyte Esterase Large (3+) H (Negative) Urine RBC 0-2 (0-2) /HPF Urine WBC >50 H (0-5) /HPF Ur Squamous Epith Cells 0-2 (0-2) /HPF Urine Bacteria Trace (None Seen) Hyaline Casts 0-2 (0-2) /LPF Discharge Plan Discharge Clinical Impression: Urinary tract infection, Acute confusion due to infection Patient Disposition: Home, Self-Care Instructions: Urinary Tract Infection in Older Adults (ED) Prescriptions: New cephalexin 500 mg capsule 1,000 mg PO BID Qty: 14 0RF No Action clotrimazole [Gyne-Lotrimin 7] 1 % cream 1 appful vaginal BEDTIME 7 Days Qty: 45 1RF metoprolol succinate 25 mg tablet extended release 24 hr 25 mg PO BID cholecalciferol (vitamin D3) 50 mcg (2,000 unit) capsule 50 mcg PO DAILY 30 Days Qty: 30 7RF (DME) walker with seat and breaks See Rx Instructions .Route .MEDSUPPLY Qty: 1 0RF Rx Instructions: As directed (DME) raised toilet seat with arms See Rx Instructions .Route .MEDSUPPLY Qty: 1 0RF Rx Instructions: As directed (DME) Shower chair with arms See Rx Instructions .Route .MEDSUPPLY Qty: 1 0RF Rx Instructions: As directed furosemide 20 mg tablet 20 mg PO DAILY (DME) Bedside commode See Rx Instructions .Route .MEDSUPPLY Qty: 1 0RF Rx Instructions: As directed Prolia 60 mg/mL syringe 60 mg subcut [id number] 30 Days Qty: 1 1RF (DME) FreeStyle Lite Strips Strip See Rx Instructions .ROUTE .MEDSUPPLY Qty: 100 11RF Rx Instructions: As directed three times a day omeprazole 20 mg capsule,delayed release(DR/EC) 20 mg PO QAM Qty: 90 1RF clopidogrel 75 mg tablet 75 mg PO DAILY Qty: 90 3RF atorvastatin 40 mg tablet 40 mg PO DAILY Qty: 90 0RF methenamine hippurate 1 gram tablet 1 g PO DAILY 90 Days Qty: 90 0RF cyanocobalamin (vitamin B-12) [Vitamin B-12] 1,000 mcg Tablet 1,000 mcg PO DAILY Qty: 90 3RF ferrous sulfate [Feosol] 325 mg (65 mg iron) Tablet 325 mg PO DAILY Qty: 60 3RF insulin aspart U-100 [Novolog FlexPen U-100 Insulin] 100 unit/mL (3 mL) insulin pen 0 sliding scale dose subcut QIDACHS Protocol: Insulin Correction Scale Less than or equal to 110 ---- Give (units): 0 111 to 150 Give (units): 0 151 to 200 Give (units): 2 201 to 250 Give (units): 4 251 to 300 Give (units): 6 301 to 350 Give (units): 8 Greater than 350 Give (units): 10 Call MD if Blood Glucose > : 350 acetaminophen 325 mg Tablet 650 mg PO Q6H PRN (Reason: Pain) (DME) lancets 28 gauge misc See Rx Instructions topical QID Qty: 100 Rx Instructions: As directed (DME) blood-glucose meter [FreeStyle Lite Meter] Kit See Rx Instructions .ROUTE .MEDSUPPLY Qty: 1 0RF Rx Instructions: As directed 4x/day Tresiba FlexTouch U-200 200 unit/mL (3 mL) insulin pen 18 unit subcut DAILY ascorbate calcium (vitamin C) 500 mg tablet 500 mg PO DAILY 90 Days Qty: 90 1RF levothyroxine 112 mcg tablet 110 mcg PO QAM hydrocortisone 2.5 % lotion 1 appl topical BID Qty: 118 3RF (DME) FreeStyle Angela 2 Sensor Kit See Rx Instructions .ROUTE .MEDSUPPLY Qty: 2 11RF Rx Instructions: Once every 14 days Interventions: ED Discharge Assessment Last Done: 04/03/22 20:32 Discharge Date/Time: 04/03/22 20:33
[2022-04-03 13:38] LABS: MANUAL DIFF FLAG NO
[2022-04-03 13:40] LABS: Basophils Percent Auto 0.6 % (0-2); Eosinophils Absolute Auto 0.1 X10*3/uL (0.0-0.4); Eosinophils Percent Auto 1.1 % (0-4); Hematocrit 32.4 % (37.0-47.0); Hemoglobin 11.2 g/dl (12.0-16.0); Imm Gran Abs Auto 0.01 X10*3/uL (0.00-0.03); Imm Gran Pct Auto 0.2 % (0.0-0.4); Lymphocytes Absolute Auto 1.2 X10*3/uL (1.2-4.9); Lymphocytes Percent Auto 19.6 % (20-40); Mean Corpuscular HGB Conc 34.6 g/dl (31.0-35.0); Mean Corpuscular Hemoglobin 30.9 pg (27.0-33.0); Mean Corpuscular Volume 89.5 fL (80.0-98.0); Mean Platelet Volume 9.4 fL (9.4-12.3); Monocytes Absolute Auto 0.4 X10*3/uL (0.1-1.2); Monocytes Percent Auto 6.5 % (2-11); Neutrophils Absolute Auto 4.6 x10*3/uL (2.0-8.3); Platelet Count 246 X10*3/uL (160-400); Red Blood Count 3.62 X10*6/uL (4.20-5.50); Red Cell Distribution Width 11.8 % (11.0-16.0); White Blood Count 6.3 X10*3/uL (4.8-10.8)
[2022-04-03 14:01] LABS: Alanine Aminotransferase 78 U/L (0-31); Alkaline Phosphatase 259 U/L (39-117); Anion Gap 13 (12-20); Aspartate Amino Transferase 59 U/L (5-31); Bilirubin Direct < 0.2 mg/dL (0.0-0.5); Bilirubin Total 0.3 mg/dL (0.0-1.0); Blood Urea Nitrogen 33 mg/dL (9-16); Calcium 9.5 mg/dL (8.4-10.2); Carbon Dioxide 24 mmol/L (22-29); Chloride 97 mmol/L (96-108); Creatinine Clr Calc Pharmacy 29.4; Estimated Glomerular Filt Rate 37; Glucose Random 317 mg/dL (60-115); Potassium 4.2 mmol/L (3.3-5.1); Sodium 130 mmol/L (135-145); Total Protein 7.8 g/dL (6.5-8.0)
[2022-04-03 15:57] VITALS: BP 148/87; PULSE 67; RESP 20; O2SAT 97
--- NOTE | 2022-04-03 18:35 | ED_ITS ---
HPI - General Adult General Chief complaint: Recheck/Abnormal Lab/Rx Stated complaint: Abnormal labs Time Seen by Provider: 04/03/22 18:15 Source: patient, family and old records reviewed Limitations: no limitations History of Present Illness HPI narrative: Patient with confusion over the last several days. She was seen by her PCP yesterday and had labs and urine testing done. PCP called the family today and recommended she come to the emergency department because she has urinary tract infection. Patient has a history of confusion secondary to urinary tract infections in the past. Her daughter states she is typically not fused but her confusion over the last few days is demonstrated by not remembering the store that she has been 200s of times before. Having the filling out of MOLST form. She is alert to person place currently. She knows her daughter. The patient is self denies any pain. Denies urinary symptoms. No nausea vomiting No fevers or chills Related Data Home Medications Medication Instructions Recorded Confirmed metoprolol succinate 25 mg 25 mg PO BID 01/13/20 04/02/22 tablet,extended release 24 hr lancets 28 gauge #100 ea 04/25/20 04/02/22 furosemide 20 mg tablet 20 mg PO DAILY 07/20/20 04/02/22 acetaminophen 325 mg tablet 650 mg PO Q6H PRN Pain 01/16/22 04/02/22 insulin aspart U-100 100 unit/mL 0 sliding scale dose subcut QIDACHS 01/16/22 04/02/22 (3 mL) subcutaneous pen (Novolog FlexPen U-100 Insulin aspart) insulin degludec 200 unit/mL (3 18 unit subcut DAILY 01/30/22 04/02/22 mL) subcutaneous pen (Tresiba FlexTouch U-200 insulin) levothyroxine 112 mcg tablet 110 mcg PO QAM 04/02/22 04/02/22 Previous Rx's Medication Instructions Recorded clotrimazole 1 % vaginal cream 1 appful vaginal BEDTIME 7 days 12/15/19 (Gyne-Lotrimin 7) #45 grams cholecalciferol (vitamin D3) 50 50 mcg PO DAILY 30 days #30 caps 01/31/20 mcg (2,000 unit) capsule cyanocobalamin (vitamin B-12) 1,000 mcg PO DAILY #90 tabs 02/22/20 1,000 mcg tablet (Vitamin B-12) blood-glucose meter (FreeStyle #1 ea 04/25/20 Lite Meter kit) walker with seat and breaks #1 ea 05/15/20 Shower chair with arms #1 ea 06/16/20 raised toilet seat with arms #1 ea 06/16/20 Bedside commode #1 ea 11/07/20 hydrocortisone 2.5 % lotion 1 appl topical BID #118 mL 03/30/21 denosumab 60 mg/mL subcutaneous 60 mg subcut [id number] 30 days #1 mL 05/16/21 syringe (Prolia) blood sugar diagnostic (FreeStyle #100 ea 07/06/21 Lite Strips) omeprazole 20 mg capsule,delayed 20 mg PO QAM #90 caps 07/19/21 release ferrous sulfate 325 mg (65 mg 325 mg PO DAILY #60 tabs 08/14/21 iron) tablet (Feosol) flash glucose sensor (FreeStyle #2 ea 11/12/21 Angela 2 Sensor kit) atorvastatin 40 mg tablet 40 mg PO DAILY #90 tabs 01/30/22 clopidogrel 75 mg tablet 75 mg PO DAILY #90 tabs 01/30/22 methenamine hippurate 1 gram tablet 1 g PO DAILY 90 days #90 tabs 02/08/22 ascorbate calcium (vitamin C) 500 500 mg PO DAILY 90 days #90 tabs 03/11/22 mg tablet cephalexin 500 mg capsule 1,000 mg PO BID #14 caps 04/03/22 Allergies Allergy/AdvReac Type Severity Reaction Status Date / Time aspirin [ASPIRIN] Allergy Severe SWELLING, Verified 04/02/22 13:49 swelling, rash fish derived [FISH] Allergy Mild RASH Verified 04/02/22 13:49 fish Allergy Unknown swelling Verified 04/02/22 13:49 Penicillins [PENICILLINS] Allergy Unknown SWELLING Verified 04/02/22 13:49 Review of Systems Constitutional: Comments: No fevers chills Eyes: Comments: Cranial nerve 4 palsy chronic Cardiovascular: Comments: No chest pain Respiratory: Comments: No shortness of breath Genitourinary: Comments: Denies dysuria Musculoskeletal: Comments: No injuries Integumentary/Breasts: Comments: No rash Neurologic: Comments: No new weakness PMFSH Past Medical History Medical History Abnormal SPEP Bacteremia CKD stage 3 due to type 2 diabetes mellitus CVA (cerebral vascular accident) Diabetes Diabetes type 2, uncontrolled Diabetic neuropathy Elevated liver enzymes History of non anemic vitamin B12 deficiency History of uterine fibroid HTN (hypertension) Hyperlipemia Hyperparathyroidism Hypoglycemia Hypothyroidism Iron deficiency anemia care home (current) 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 Osteoporosis Personal history of malignant neoplasm of uterus Renal tubular acidosis Serum calcium elevated Subcutaneous mass T2DM (type 2 diabetes mellitus) Urinary retention with incomplete bladder emptying Vitamin D deficiency Yeast infection involving the vagina and surrounding area Surgical History H/O carotid endarterectomy History of cataract surgery History of colonoscopy History of endoscopy History of hysterectomy Family History Family History Maternal Grandmother No problems noted. Mother Pancreatic cancer Social History Social History Household Members: Family Housing: Apartment Do you presently have visiting nurse or other home services: No Alcohol intake: current Alcohol intake frequency: holidays/special occasions only Patient Tobacco Use Status: Never used Tobacco Smoked in Last 30 Days: No e-Cigarette/Vaping Use: Never Used Second Hand Smoke Exposure: No Use of substances other than those prescribed or required for medical reasons: No Advance Directives: Yes Advance Directives on File: Yes Advance Directives Date on File: 02/04/20 service: No Current occupational status: unemployed Cognitive needs: No Hearing needs: No Vision needs: Yes Physical Exam ED Vital Signs: Vital Signs - 24 hr 04/03/22 13:10 04/03/22 15:57 Temperature 97.6 F Pulse Rate 73 67 Respiratory Rate 18 20 Blood Pressure 166/52 H 148/87 H Pulse Oximetry 100 97 Oxygen Delivery Method Room Air Room Air BMI result Body Mass Index 28.8 Const Other: Awake alert. No acute distress. Ambulatory Eyes Other: Right eye with lateral gaze deviation. Baseline Resp Other: Clear and equal Cardio Other: Regular rate rhythm without murmurs rubs or gallops GI Other: Soft nontender nondistended Skin Other: Warm pink and dry without rash Neuro Other: Nonfocal neuro exam with exception of right eye lateral gaze deviation as previously mentioned Extrem Other: No pedal edema Medications Administered Discontinued Medications Generic Name Dose Route Start Last Admin Trade Name Freq PRN Reason Stop Dose Admin Sodium Chloride 1,000 mls @ 999 mls/hr 04/03/22 18:45 04/03/22 19:58 Ns IV 04/03/22 19:45 Infused .Q1H1M MICHAEL Infusion Ceftriaxone Sodium 1 gm/ 50 mls @ 100 mls/hr 04/03/22 18:32 04/03/22 19:58 Sodium Chloride IV 04/03/22 19:01 Infused ONCE ONE Infusion Insulin Human Regular 6 unit 04/03/22 18:32 04/03/22 19:04 Insulin Regular, Human 100 Unit/Ml 3 Ml Vial 0.1 unit/kg (6 unit) 04/03/22 18:33 6 unit IVPUSH Administration ONCE ONE Medical Decision Making Medical Decision Making [facility] Narrative: Patient with confusion in the setting of confirmed urinary tract infection. She is hemodynamically stable without a rash. She does not meet sepsis guidelines. Review of records from yesterday show she has a sodium of 131 with a creatinine of 1.49. Potassium was 5.7. Labs repeated 18:39 Labs today show sodium of 130 but a glucose of 317. Pseudo hyponatremia in addition to mild true hyponatremia. Her creatinine today is 1.41 slightly better than yesterday. Urinalysis from yesterday shows greater than 50 white cells consistent with acute urinary tract infection. Will treat with IV normal saline, IV ceftriaxone, IV insulin, 6 units. Will re-evaluate after medication for hopefully improved mental status and less confusion 20:15. Re-evaluation shows patient is feeling better. According to her daughter she is not demonstrated any confusion the since the IV fluids and antibiotics. She very much wants to go home. She was stable and will discharge her home on Keflex Lab Data 04/03/22 13:34 04/03/22 13:34 Labs: Lab Results 04/03/22 04/03/22 04/03/22 Range/Units 13:34 13:34 19:12 WBC 6.3 (4.8-10.8) X10*3/uL RBC 3.62 L (4.20-5.50) X10*6/uL Hgb 11.2 L (12.0-16.0) g/dl Hct 32.4 L (37.0-47.0) % MCV 89.5 (80.0-98.0) fL MCH 30.9 (27.0-33.0) pg MCHC 34.6 (31.0-35.0) g/dl RDW 11.8 (11.0-16.0) % Plt Count 246 (160-400) X10*3/uL MPV 9.4 (9.4-12.3) fL Immature Gran % (Auto) 0.2 (0.0-0.4) % Neut % (Auto) 72.0 (45-73) % Lymph % (Auto) 19.6 L (20-40) % Rice % (Auto) 6.5 (2-11) % Eos % (Auto) 1.1 (0-4) % Baso % (Auto) 0.6 (0-2) % Lymph # (Auto) 1.2 (1.2-4.9) X10*3/uL Rice # (Auto) 0.4 (0.1-1.2) X10*3/uL Eos # (Auto) 0.1 (0.0-0.4) X10*3/uL Baso # (Auto) 0.0 (0.0-0.2) X10*3/uL Abs Immat Gran (auto) 0.01 (0.00-0.03) X10*3/uL Absolute Neuts (auto) 4.6 (2.0-8.3) x10*3/uL Absolute Nucleated RBC 0.000 (0.0-0.012) X10*3/uL Nucleated RBC % (auto) 0.0 (0.0-0.2) /100WBC Sodium 130 L (135-145) mmol/L Potassium 4.2 D (3.3-5.1) mmol/L Chloride 97 (96-108) mmol/L Carbon Dioxide 24 (22-29) mmol/L Anion Gap 13 (12-20) BUN 33 H (9-16) mg/dL Creatinine 1.41 H (0.5-1.4) mg/dL Estim Creat Clear Calc 29.4 Estimated GFR 37 Random Glucose 317 H (60-115) mg/dL Lactic Acid 1.1 (0.5-2.0) mmol/L Calcium 9.5 (8.4-10.2) mg/dL Total Bilirubin 0.3 (0.0-1.0) mg/dL Direct Bilirubin < 0.2 (0.0-0.5) mg/dL AST 59 H (5-31) U/L ALT 78 H (0-31) U/L Alkaline Phosphatase 259 H (39-117) U/L Total Protein 7.8 (6.5-8.0) g/dL Albumin 4.0 (3.5-5.0) g/dL Urine Color Urine Appearance Urine pH (5.0-9.0) Ur Specific [place] (1.005-1.025) Urine Protein (Neg-Trace) mg/dL Urine Glucose (UA) (Negative) mg/dL Urine Ketones (Negative) mg/dL Urine Blood (Negative) Urine Nitrite (Negative) Ur Leukocyte Esterase (Negative) 04/03/22 Range/Units 19:32 WBC (4.8-10.8) X10*3/uL RBC (4.20-5.50) X10*6/uL Hgb (12.0-16.0) g/dl Hct (37.0-47.0) % MCV (80.0-98.0) fL MCH (27.0-33.0) pg MCHC (31.0-35.0) g/dl RDW (11.0-16.0) % Plt Count (160-400) X10*3/uL MPV (9.4-12.3) fL Immature Gran % (Auto) (0.0-0.4) % Neut % (Auto) (45-73) % Lymph % (Auto) (20-40) % Rice % (Auto) (2-11) % Eos % (Auto) (0-4) % Baso % (Auto) (0-2) % Lymph # (Auto) (1.2-4.9) X10*3/uL Rice # (Auto) (0.1-1.2) X10*3/uL Eos # (Auto) (0.0-0.4) X10*3/uL Baso # (Auto) (0.0-0.2) X10*3/uL Abs Immat Gran (auto) (0.00-0.03) X10*3/uL Absolute Neuts (auto) (2.0-8.3) x10*3/uL Absolute Nucleated RBC (0.0-0.012) X10*3/uL Nucleated RBC % (auto) (0.0-0.2) /100WBC Sodium (135-145) mmol/L Potassium (3.3-5.1) mmol/L Chloride (96-108) mmol/L Carbon Dioxide (22-29) mmol/L Anion Gap (12-20) BUN (9-16) mg/dL Creatinine (0.5-1.4) mg/dL Estim Creat Clear Calc Estimated GFR Random Glucose (60-115) mg/dL Lactic Acid (0.5-2.0) mmol/L Calcium (8.4-10.2) mg/dL Total Bilirubin (0.0-1.0) mg/dL Direct Bilirubin (0.0-0.5) mg/dL AST (5-31) U/L ALT (0-31) U/L Alkaline Phosphatase (39-117) U/L Total Protein (6.5-8.0) g/dL Albumin (3.5-5.0) g/dL Urine Color Yellow Urine Appearance Cloudy Urine pH 6.0 (5.0-9.0) Ur Specific [place] 1.010 (1.005-1.025) Urine Protein Negative (Neg-Trace) mg/dL Urine Glucose (UA) 250 H (Negative) mg/dL Urine Ketones Negative (Negative) mg/dL Urine Blood Trace H (Negative) Urine Nitrite Negative (Negative) Ur Leukocyte Esterase Large (3+) H (Negative) Discharge Plan Discharge Clinical Impression: Urinary tract infection, Acute confusion due to infection Patient Disposition: Home, Self-Care Instructions: Urinary Tract Infection in Older Adults (ED) Prescriptions: New cephalexin 500 mg capsule 1,000 mg PO BID Qty: 14 0RF No Action clotrimazole [Gyne-Lotrimin 7] 1 % cream 1 appful vaginal BEDTIME 7 Days Qty: 45 1RF metoprolol succinate 25 mg tablet extended release 24 hr 25 mg PO BID cholecalciferol (vitamin D3) 50 mcg (2,000 unit) capsule 50 mcg PO DAILY 30 Days Qty: 30 7RF (DME) walker with seat and breaks See Rx Instructions .Route .MEDSUPPLY Qty: 1 0RF Rx Instructions: As directed (DME) raised toilet seat with arms See Rx Instructions .Route .MEDSUPPLY Qty: 1 0RF Rx Instructions: [place] [place] with arms See Rx Instructions .Route .MEDSUPPLY Qty: 1 0RF Rx Instructions: As directed furosemide 20 mg tablet 20 mg PO DAILY (DME) Bedside commode See Rx Instructions .Route .MEDSUPPLY Qty: 1 0RF Rx Instructions: As directed Prolia 60 mg/mL syringe 60 mg subcut [id number] 30 Days Qty: 1 1RF (DME) FreeStyle Lite Strips Strip See Rx Instructions .ROUTE .MEDSUPPLY Qty: 100 11RF Rx Instructions: As directed three times a day omeprazole 20 mg capsule,delayed release(DR/EC) 20 mg PO QAM Qty: 90 1RF clopidogrel 75 mg tablet 75 mg PO DAILY Qty: 90 3RF atorvastatin 40 mg tablet 40 mg PO DAILY Qty: 90 0RF methenamine hippurate 1 gram tablet 1 g PO DAILY 90 Days Qty: 90 0RF cyanocobalamin (vitamin B-12) [Vitamin B-12] 1,000 mcg Tablet 1,000 mcg PO DAILY Qty: 90 3RF ferrous sulfate [Feosol] 325 mg (65 mg iron) Tablet 325 mg PO DAILY Qty: 60 3RF insulin aspart U-100 [Novolog FlexPen U-100 Insulin] 100 unit/mL (3 mL) insulin pen 0 sliding scale dose subcut QIDACHS Protocol: Insulin Correction Scale Less than or equal to 110 ---- Give (units): 0 111 to 150 Give (units): 0 151 to 200 Give (units): 2 201 to 250 Give (units): 4 251 to 300 Give (units): 6 301 to 350 Give (units): 8 Greater than 350 Give (units): 10 Call MD if Blood Glucose > : 350 acetaminophen 325 mg Tablet 650 mg PO Q6H PRN (Reason: Pain) (DME) lancets 28 gauge misc See Rx Instructions topical QID Qty: 100 Rx Instructions: As directed (DME) blood-glucose meter [FreeStyle Lite Meter] Kit See Rx Instructions .ROUTE .MEDSUPPLY Qty: 1 0RF Rx Instructions: As directed 4x/day Tresiba FlexTouch U-200 200 unit/mL (3 mL) insulin pen 18 unit subcut DAILY ascorbate calcium (vitamin C) 500 mg tablet 500 mg PO DAILY 90 Days Qty: 90 1RF levothyroxine 112 mcg tablet 110 mcg PO QAM hydrocortisone 2.5 % lotion 1 appl topical BID Qty: 118 3RF (DME) FreeStyle Angela 2 Sensor Kit See Rx Instructions .ROUTE .MEDSUPPLY Qty: 2 11RF Rx Instructions: Once every 14 days
[2022-04-03] MEDS: 0.9 % Sodium Chloride 1,000 ML 999 ML IV (18:56)
[2022-04-03] MEDS: Insulin Regular, Human 100 UNIT/ML 3 ML VIAL 6 UNIT IVPUSH (19:04)
[2022-04-03] MEDS: cefTRIAXone sodium 1 GM in 0.9 % Sodium Chloride 50 ML IV (19:28)
[2022-04-03 19:40] LABS: Lactic Acid 1.1 mmol/L (0.5-2.0)
[2022-04-03 20:00] LABS: Appearance Urine Cloudy; Color Urine Yellow; Glucose Urine UA 250 mg/dL (Negative); Leukocyte Esterase Urine Large (3+) (Negative); Nitrite Urine Negative (Negative); UMIC TRIGGER UACC YES; Urine Blood Trace (Negative); Urine Ketones Negative (Negative); Urine Protein Negative (Neg-Trace)
[2022-04-03 20:22] LABS: Bacteria Urine Trace (None Seen); Hyaline Casts Urine 0-2 /LPF (0-2); RBC Urine 0-2 /HPF (0-2); Squamous Epithelial Cell Urine 0-2 /HPF (0-2); UACC Culture Trigger YES; WBC Urine >50 /HPF (0-5)
[2022-04-03 20:23] LABS: Glucose, Whole Blood 140 mg/dL (60-115)
[2022-04-03 20:25] VITALS: BP 142/89; PULSE 84; RESP 16; TEMP 36.2; O2SAT 97
== END 2022-04-03 20:33 | disposition home or self-care (01) ==
PROVIDERS: Nurse Practitioner Family; Emergency Provider Emergency Medicine; PCP Internal Medicine
DX: N39.0 Urinary tract infection, site not specified (principal); R79.89 Other specified abnormal findings of blood chemistry; R41.0 Disorientation, unspecified; E11.9 Type 2 diabetes mellitus without complications; Z79.899 Other long term (current) drug therapy; Z79.4 Long term (current) 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
CPT/HCPCS: 36415; 80048; 80076; 81001; 81003; 82947; 83605; 85025; 87040; 96361; 96374; 96375; 99284; 99285; J0696

== ENCOUNTER 2022-06-12 13:30 | Outpatient (REF) | payer MEDICARE, MEDICAID, SELFPAY ==
[2022-06-12 14:59] LABS: Estimated Average Glucose 212 mg/dL
[2022-06-12 16:03] LABS: Alanine Aminotransferase 76 U/L (0-31); Albumin Level 4.2 g/dL (3.5-5.0); Alkaline Phosphatase 284 U/L (39-117); Anion Gap 13 (12-20); Aspartate Amino Transferase 60 U/L (5-31); Bilirubin Total 0.4 mg/dL (0.0-1.0); Blood Urea Nitrogen 35 mg/dL (9-16); Calcium 9.9 mg/dL (8.4-10.2); Carbon Dioxide 22 mmol/L (22-29); Chloride 98 mmol/L (96-108); Estimated Glomerular Filt Rate 33; Glucose Random 139 mg/dL (60-115); Phosphorus 3.3 mg/dL (2.7-4.5); Potassium 4.3 mmol/L (3.3-5.1); Sodium 129 mmol/L (135-145); Total Protein 8.2 g/dL (6.5-8.0)
[2022-06-12 16:20] LABS: Free T4 (Free Thyroxine) 1.26 ng/dL (0.71-1.85); Thyroid Stimulating Hormone 0.31 uIU/mL (0.32-4.0); Vitamin D 25-OH Total 33.3 ng/mL (>30)
[2022-06-12 18:22] LABS: Creatinine Urine 24.16 mg/dL
[2022-06-12 18:25] LABS: Microalbum/Creatinine Ratio Ur 115.8 ug/mg cr
[2022-06-14 14:58] LABS: Calcium (PTHI) 9.9 mg/dL (8.6-10.4); PTHI 76 pg/mL (16-77)
== END 2022-06-12 13:31 | disposition home or self-care (01) ==
LOC: HO.LAB 13:30
PROVIDERS: PCP Internal Medicine; Visit Provider Internal Medicine
DX: M81.0 Age-related osteoporosis without current pathological fracture (principal); E78.2 Mixed hyperlipidemia; E11.9 Type 2 diabetes mellitus without complications; I10 Essential (primary) hypertension; E21.3 Hyperparathyroidism, unspecified; E55.9 Vitamin D deficiency, unspecified; R77.8 Other specified abnormalities of plasma proteins
CPT/HCPCS: 36415; 80053; 82043; 82306; 83036; 83970; 84100; 84439; 84443; 99212

== ENCOUNTER → 2022-06-25 13:22 | Outpatient (BNVA) | payer MEDICARE, MEDICAID, SELFPAY | PROVIDERS: PCP Internal Medicine; Visit Provider Nurse Practitioner | DX: K75.81 Nonalcoholic steatohepatitis (NASH) (principal); K64.9 Unspecified hemorrhoids | CPT/HCPCS: 99212 ==

== ENCOUNTER 2022-07-01 14:28 | Outpatient (REF) | payer MEDICARE, MEDICAID, SELFPAY ==
[2022-07-01 16:31] LABS: Appearance Urine Turbid; Color Urine Yellow; Glucose Urine UA 100 mg/dL (Negative); Leukocyte Esterase Urine Large (3+) (Negative); Nitrite Urine Negative (Negative); Specific Gravity - Urine <= 1.005 (1.005-1.025); UMIC TRIGGER UA YES; Urine Blood Moderate (2+) (Negative); Urine Ketones Negative (Negative); Urine Protein 30 (1+) mg/dL (Neg-Trace)
[2022-07-01 16:48] LABS: Bacteria Urine 4+ (None Seen); Hyaline Casts Urine 0-2 /LPF (0-2); Squamous Epithelial Cell Urine 0-2 /HPF (0-2); WBC Urine >50 /HPF (0-5)
== END 2022-07-01 14:29 | disposition home or self-care (01) ==
LOC: HO.HMGCLDS 14:28
PROVIDERS: PCP Internal Medicine; Visit Provider Nurse Practitioner Family
DX: N39.0 Urinary tract infection, site not specified (principal)
CPT/HCPCS: 81001; 87086; 87088; 87186

== ENCOUNTER 2022-07-18 08:26 | Outpatient (REF) | payer MEDICARE, MEDICAID, SELFPAY ==
--- NOTE | ~2022-07-18 | US_ITS ---
EXAMINATION: US ABDOMEN LIMITED CLINICAL INFORMATION: Nonalcoholic steatohepatitis. COMPARISON: Ultrasound abdomen complete 03/21/2021. CT abdomen and pelvis 07/22/2020. TECHNIQUE: Real-time imaging of the right upper quadrant abdominal viscera. FINDINGS: PANCREAS: Heterogeneous parenchymal echotexture, which is nonspecific. Consider correlation with lipase and any clinical symptoms pancreatitis. LIVER: Normal. The liver is normal in size. The liver contour is normal. Parenchymal echogenicity is normal. No focal hepatic lesion. There is no intrahepatic biliary duct dilatation seen. GALLBLADDER: Negative sonographic Rendon sign. The gallbladder is physiologically distended without evidence of stones, sludge, polyps, wall thickening or pericholecystic fluid. COMMON BILE DUCT: Normal in caliber measuring 0.7 cm in diameter. RIGHT KIDNEY: Severe right hydronephrosis. No renal calculi or focal parenchymal lesions. The kidney measures 9.6 cm in maximum dimension. FREE FLUID: None. US/US abdomen limited IMPRESSION: 1. Heterogeneous parenchymal echotexture of the pancreas, which is nonspecific. Consider correlation with lipase and any clinical symptoms pancreatitis, and present contrast-enhanced CT abdomen pelvis could be obtained for further evaluation. 2. Severe right hydronephrosis. No nephrolithiasis identified. Consider CT stone protocol CT urogram for further evaluation.
== END 2022-07-18 08:27 | disposition home or self-care (01) ==
LOC: HO.US 08:26
PROVIDERS: PCP Internal Medicine; Visit Provider Nurse Practitioner
DX: K75.81 Nonalcoholic steatohepatitis (NASH) (principal); K64.9 Unspecified hemorrhoids
CPT/HCPCS: 76705

== ENCOUNTER → 2022-07-30 13:37 | Outpatient (BNVA) | payer MEDICARE, MEDICAID, SELFPAY | PROVIDERS: PCP Internal Medicine; Referring Provider Internal Medicine; Visit Provider Nurse Practitioner | DX: K75.81 Nonalcoholic steatohepatitis (NASH) (principal); K64.4 Residual hemorrhoidal skin tags; K64.8 Other hemorrhoids; E11.65 Type 2 diabetes mellitus with hyperglycemia; R82.90 Unspecified abnormal findings in urine; K21.9 Gastro-esophageal reflux disease without esophagitis | CPT/HCPCS: 81001; 87086; 87088; 87186; 99212 ==

== ENCOUNTER 2022-07-30 15:05 | Outpatient (REF) | payer MEDICARE, MEDICAID, SELFPAY ==
[2022-07-30 15:16] LABS: Appearance Urine Cloudy; Color Urine Yellow; Glucose Urine UA 250 mg/dL (Negative); Leukocyte Esterase Urine Large (3+) (Negative); Nitrite Urine Negative (Negative); UMIC TRIGGER UACC YES; Urine Blood Trace (Negative); Urine Ketones Negative (Negative); Urine Protein Trace mg/dL (Neg-Trace)
[2022-07-30 19:53] LABS: Bacteria Urine 3+ (None Seen); Hyaline Casts Urine 0-2 /LPF (0-2); RBC Urine 0-2 /HPF (0-2); Squamous Epithelial Cell Urine 0-2 /HPF (0-2); UACC Culture Trigger YES; WBC Urine >50 /HPF (0-5)
== END 2022-07-30 15:06 | disposition home or self-care (01) ==
LOC: HO.LNP 15:05
PROVIDERS: Visit Provider Nurse Practitioner
DX: Z13.89 Encounter for screening for other disorder (principal)
CPT/HCPCS: 81001; 87086; 87088; 87186

== ENCOUNTER → 2022-08-05 11:18 | Outpatient (BNVA) | payer MEDICARE, MEDICAID, SELFPAY | PROVIDERS: PCP Internal Medicine; Visit Provider Internal Medicine | DX: E11.9 Type 2 diabetes mellitus without complications (principal); E78.2 Mixed hyperlipidemia; E21.3 Hyperparathyroidism, unspecified; E55.9 Vitamin D deficiency, unspecified; I10 Essential (primary) hypertension; M81.0 Age-related osteoporosis without current pathological fracture; R77.8 Other specified abnormalities of plasma proteins | CPT/HCPCS: 82947; 96372; 99212 ==

== ENCOUNTER 2022-08-22 10:00 | Outpatient (REF) | payer MEDICARE, MEDICAID, SELFPAY ==
--- NOTE | ~2022-08-22 | CT_ITS ---
EXAMINATION: CT ABDOMEN AND PELVIS WITHOUT AND WITH CONTRAST CLINICAL INFORMATION: Hydronephrosis. COMPARISON: Abdominal CT scan of 07/22/2020. TECHNIQUE: Noncontrast CT of the abdomen and pelvis is performed followed by split bolus contrast-enhanced images using 85 mL Omnipaque 350 contrast.? Postcontrast imaging is performed during the combined nephrogram and excretion phase. Sagittal and coronal reformatted images were obtained on the technologist's workstation for both the precontrast and postcontrast phases. This CT examination was performed using dose optimization techniques as appropriate, variously including the following: *Automated exposure control *Adjustment of mA and/or kV according to patient size (this includes techniques or standardized protocols for targeted exams where dose is matched to indication/reason for exam; i.e. extremities or head) *Use of iterative reconstruction technique DLP: 874 mGy-cm FINDINGS: LUNG BASES: There is some dependent ground-glass opacity present bilaterally consistent with atelectasis. Aortic valve calcification is seen. Coronary artery calcification is noted. Heart is normal size. No pericardial effusion. LIVER, GALLBLADDER, AND BILIARY TREE: The liver is normal in size, shape, and attenuation. No focal hepatic lesion or biliary ductal dilatation is present. There are coarse calcifications seen involving the fundus of the bladder wall without bladder wall thickening or pericholecystic fluid. There is a small calculus also noted about the bladder neck. It is difficult to tell if any of these are within the gallbladder lumen or if they are all involved with the bladder wall. These are unchanged compared to study of 07/22/2020. No suspicious destructive bony lesions are identified. Sacroiliac joint degenerative change is seen, left greater than right. There is multilevel degenerative disc disease seen within the lower thoracic and upper lumbar spine. PANCREAS: There has been a fatty involution of the pancreas. SPLEEN: Unremarkable. ADRENAL GLANDS: Unremarkable. KIDNEYS AND URETERS: There is grade 3 hydronephrosis bilaterally with prominent hydroureter down to the urinary bladder with no renal or ureteral calculi identified. No bladder wall mass is appreciated. There are some regions of mild cortical loss within both kidneys but others appearing normal. On portal phase imaging there is noted to be contrast within both upper collecting systems. On 15 minute delayed imaging there is still no contrast seen within the ureters. No duplicated ureters are seen to suggest ureteroceles. The ureters appear to lie somewhat more lateral to insertion points of the urinary bladder than usual; however, this appearance may be related to tortuosity and mass effect related to the ureteral dilatation. Bilateral ectopic ureters in these locations would seem unusual. There is question of short focal regions of diminished caliber of the distal ureters with question for septation; however, this may be related to the ureters course through the bladder wall. BLADDER: No bladder wall thickening or bladder wall mass is appreciated. The bilateral ureters aren't dilated to and at the ureterovesical junctions. GASTROINTESTINAL TRACT: No dilated loops of large or small bowel are evident. No free air or free fluid is identified. No pericolonic inflammatory change. The appendix was not visualized. ABDOMINAL WALL: No significant hernia is appreciated. LYMPH NODES: No lymphadenopathy is appreciated. VASCULAR: There is moderate calcified aortoiliac plaque as well as ostial plaque at the ostium of the visceral vessels. I cannot tell whether any of these stenoses may be hemodynamically significant or not. No abdominal aortic aneurysm. PELVIC VISCERA: No suspicious pelvic mass is appreciated. OSSEUS STRUCTURES: No suspicious destructive bony lesions. Bilateral sacroiliac joint degenerative change. Multilevel degenerative change of the lower thoracic and lumbar spine noted. CT/CT urogram IMPRESSION: Bilateral grade 3 hydronephrosis with prominent hydroureter throughout the ureters bilaterally down to the ureterovesical junction. Ureteral vesicle junctions appear to be somewhat more lateral than usual; however, this may be related to the hydroureter with image tortuosity and mass effect. There appear to be some septations within the most distal aspect of the ureters bilaterally but which may be related to their course within the bladder wall. No bladder wall mass or bladder wall thickening is appreciated. With the bilaterality of findings and lack of duplicated collecting systems it would seem less likely that above findings are related to ectopic ureters or ureteroceles. Question possible bladder outlet obstruction with increased pressure causing the hydroureter and hydronephrosis. Retrograde cystoureterography would be of help in further evaluation. Prominent arterial calcified plaque as described above.
[2022-08-22] MEDS: iohexoL 350 MG/ML 100 ML INFUS..BTL IV (11:40)
[2022-08-23 06:31] LABS: Creatinine POC 0.9 mg/dL (0.5-1.4); GFR POC > 60
== END 2022-08-22 10:01 | disposition home or self-care (01) ==
LOC: HO.CT 10:00
PROVIDERS: Visit Provider Nurse Practitioner
DX: N13.30 Unspecified hydronephrosis (principal)
CPT/HCPCS: 74178; 82565; Q9967

== ENCOUNTER 2022-08-27 10:48 | Outpatient (REF) | payer MEDICARE, MEDICAID, SELFPAY | END 2022-08-27 10:49 | disposition home or self-care (01) | LOC: HO.LNP 10:48 | PROVIDERS: Visit Provider Nurse Practitioner Family | DX: N13.30 Unspecified hydronephrosis (principal); N39.0 Urinary tract infection, site not specified; N31.9 Neuromuscular dysfunction of bladder, unspecified; R33.9 Retention of urine, unspecified | CPT/HCPCS: 51798; 87086; 87088; 87186; 99212 ==

== ENCOUNTER → 2022-08-30 15:07 | Outpatient (BNVA) | payer MEDICARE, MEDICAID, SELFPAY | PROVIDERS: PCP Internal Medicine; Visit Provider Nurse Practitioner | DX: K21.9 Gastro-esophageal reflux disease without esophagitis (principal); K75.81 Nonalcoholic steatohepatitis (NASH); N13.30 Unspecified hydronephrosis; N31.9 Neuromuscular dysfunction of bladder, unspecified; E11.22 Type 2 diabetes mellitus with diabetic chronic kidney disease; N18.30 Chronic kidney disease, stage 3 unspecified; E11.65 Type 2 diabetes mellitus with hyperglycemia | CPT/HCPCS: 99212 ==

== ENCOUNTER → 2022-09-12 10:52 | Outpatient (REF) | payer MEDICARE, MEDICAID, SELFPAY ==
--- NOTE | ~2022-09-12 | NM_ITS ---
EXAMINATION: RENAL DYNAMIC IMAGING STUDY CLINICAL INFORMATION: Unspecified hydronephrosis. COMPARISON: CT urogram done on 08/22/2022. TECHNIQUE: Serial gamma scintillation camera images were obtained over the posterior trunk during the initial transit and subsequent distribution of a bolus intravenous injection of 10 mCi Tc-99m DTPA. At 30 minutes later, 31 mg of Lasix was administered intravenously and an additional 30 minutes of images obtained. FINDINGS: Initial rapid sequence images show good perfusion to the kidneys. Sequential static images obtained up to 30 minutes post injection reveal adequate concentration. There is evidence of excretory function by 4 minutes post injection. There is adequate accumulation of radioisotope urinary bladder. On post Lasix images, there is no significant washout is seen on the left and minimal washout on the right. The findings are consistent with significant bilateral obstruction. Poor renal function may also contribute to poor washout on post Lasix images. Significant retention of radioisotope within the bladder is noted on postvoid images with persistent bilateral hydroureteronephrosis. The relative function of the two kidneys based on the 2-3 minute images are: Left 47.3% and right 52.7%. No meaningful post Lasix T1/2 values were generated. NM/NM renal flow w pharm int IMPRESSION: LEFT KIDNEY: Abnormal study showing findings consistent with significant obstruction. RIGHT KIDNEY: Abnormal study showing findings consistent with significant obstruction.
== END ==
LOC: HO.NUCMED 10:52
PROVIDERS: Visit Provider Nurse Practitioner Family
DX: N13.30 Unspecified hydronephrosis (principal)
CPT/HCPCS: 78708; A9539; J1940

== ENCOUNTER 2022-09-23 15:26 | Outpatient (AMB) | payer MEDICARE, MEDICAID, SELFPAY ==
--- NOTE | 2022-09-23 15:28 | MHC.OFFWIV ---
Intake Vital Signs 09/23/22 15:29 Height 4 ft 10 in BP 114/50 L Blood Pressure Location Rt brachial Position Sitting Pulse 89 Pulse Source Pulse Oximeter Temp 98.2 F Temp Source Oral Pulse Oximetry (%) 98 Oxygen Delivery Method Room Air Intake Visit Reasons: EP, UTI? Intake Note: pt is here today for possible UTI. pt states color disoriented . Patient Tobacco Use Status: Never used Tobacco Allergies aspirin [ASPIRIN] Allergy (Severe, Verified 10/01/22 06:22) Swelling, rash fish derived [FISH] Allergy (Mild, Verified 10/01/22 06:22) Rash, Swelling Penicillins [PENICILLINS] Allergy (Unknown, Verified 10/01/22 06:22) Swelling Medication List - Last Reconciled 10/01/22 by Negrito Mendenhall MD acetaminophen 650 mg PO Q6H PRN ascorbate calcium (vitamin C) 500 mg PO DAILY 90 days atorvastatin 40 mg PO DAILY [Bedside commode As directed] bethanechol chloride 50 mg PO BID 30 days blood sugar diagnostic (FreeStyle Lite Strips) As directed three times a day blood-glucose meter (FreeStyle Lite Meter kit) As directed 4x/day cholecalciferol (vitamin D3) 50 mcg PO DAILY 30 days clopidogrel 75 mg PO DAILY clotrimazole 1% (Gyne-Lotrimin 7) 1 appful vaginal BEDTIME 7 days cyanocobalamin (vitamin B-12) (Vitamin B-12) 1,000 mcg PO DAILY denosumab (Prolia) 60 mg subcut [id number] 30 days estradiol 0.01%(0.1mg/gram) vaginally 3 times a week; pea sized amount to urethra 3 times a week 30 days ferrous sulfate (Feosol) 325 mg PO DAILY flash glucose sensor (FreeStyle Angela 2 Sensor kit) Once every 14 days furosemide 20 mg PO DAILY hydrocortisone 2.5% 1 appl topical BID insulin aspart U-100 (Novolog FlexPen U-100 Insulin aspart) 0 sliding scale doses See Protocol subcut QIDACHS insulin degludec (Tresiba FlexTouch U-200 insulin) 30 units (0.15 mL) subcut DAILY lancets As directed lansoprazole 30 mg PO DAILY levothyroxine 100 mcg PO DAILY 30 days methenamine hippurate 1 g PO DAILY 90 days metoprolol succinate ER 25 mg PO BID pen needle, diabetic (BD Denisa 2nd Gen Pen Needle) 4x daily [raised toilet seat with arms As directed] [Shower chair with arms As directed] sulfamethoxazole-trimethoprim 800-160 mg (Bactrim DS) 1 tab PO BID 5 days [walker with seat and breaks As directed] Do you need a note to return to daycare/school/sports/work: No HPI EP, UTI? HPI Details Patient presents for a sick visit. Reports symptoms of increased frequency of urination, burning on urination and discomfort in the suprapubic area. Symptoms started in the past few days. No fevers or chills. No nausea or vomiting. [facility] Medical History (Updated 09/25/22 @ 11:14 by BRANDON Daniel) Abnormal SPEP Bacteremia CKD stage 3 due to type 2 diabetes mellitus Colonoscopy refused CVA (cerebral vascular accident) Diabetes Diabetes type 2, uncontrolled Diabetic neuropathy Elevated liver enzymes History of non anemic vitamin B12 deficiency History of uterine fibroid HTN (hypertension) Hyperlipemia Hyperparathyroidism Hypoglycemia Hypothyroidism Iron deficiency anemia skilled nursing (current) 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 Osteoporosis Personal history of malignant neoplasm of uterus Renal tubular acidosis Serum calcium elevated Subcutaneous mass T2DM (type 2 diabetes mellitus) Urinary retention with incomplete bladder emptying Vitamin D deficiency Yeast infection involving the vagina and surrounding area Surgical History H/O carotid endarterectomy History of cataract surgery History of colonoscopy History of endoscopy History of hysterectomy Family History Maternal Grandmother No problems noted. Mother Pancreatic cancer Social History Household Members: Family Housing: Apartment Do you presently have visiting nurse or other home services: No Alcohol intake: current Alcohol intake frequency: holidays/special occasions only Patient Tobacco Use Status: Never used Tobacco e-Cigarette/Vaping Use: Never Used Second Hand Smoke Exposure: No Advance Directives Date on File: 02/04/20 service: No Current occupational status: unemployed Cognitive needs: No Hearing needs: No Vision needs: Yes Physical Exam Vital Signs: Last Vital Signs Temp 98.2 F 09/23/22 15:29 Pulse 89 09/23/22 15:29 BP 114/50 L 09/23/22 15:29 Pulse Ox 98 09/23/22 15:29 Oxygen Delivery Method Room Air 09/23/22 15:29 General: Yes bladder normal to inspection, Yes bladder normal to palpation and Yes no CVA tenderness Bimanual exam- vagina & uterus: bladder normal to palpation Back/Spine/Pelvis Back: no CVA tenderness Results AMB Urinalysis, Automated UA Leukoctes 500 Antony/uL Last Edit by Leslie Ann, NIKKIE on 09/23/22 15:44 UA Nitrite Negative Last Edit by Leslie Ann, [employer] on 09/23/22 15:44 UA Urobilinogen 0.2 mg/dL Last Edit by Leslie Ann, [employer] on 09/23/22 15:44 UA Protein 15 mg/dL Last Edit by Leslie Ann, [employer] on 09/23/22 15:44 UA pH 6.0 Last Edit by Leslie Ann, [employer] on 09/23/22 15:44 UA Blood 200 Ian/uL Last Edit by Leslie Ann, [employer] on 09/23/22 15:44 UA Specific [place] 1.015 Last Edit by Leslie Ann, [employer] on 09/23/22 15:44 UA Ketone Negative Last Edit by Leslie Ann, [employer] on 09/23/22 15:44 UA Bilirubin 0 mg/dL Last Edit by Leslie Ann, [employer] on 09/23/22 15:44 UA Glucose 0 mg/dL Last Edit by Leslie Ann, [employer] on 09/23/22 15:44 Results Reviewed Results Reviewed: Laboratory Last Values Urine pH (Auto) 6.0 09/23/22 15:42 Specific [place] (Auto) 1.015 09/23/22 15:42 Urine Protein (Auto) 15 mg/dL 09/23/22 15:42 Glucose (UA)(Auto) 0 mg/dL 09/23/22 15:42 Urine Ketones (Auto) Negative 09/23/22 15:42 Urine Blood (Auto) 200 Ian/uL 09/23/22 15:42 Urine Nitrite (Auto) Negative 09/23/22 15:42 Urine Bilirubin (Auto) 0 mg/dL 09/23/22 15:42 Urine Urobilinogen (Auto) 0.2 mg/dL 09/23/22 15:42 Leukocyte Esterase (Auto) 500 Antony/uL 09/23/22 15:42 Assessment & Plan Assessment & Plan (1) Urinary tract infection: Code(s): N39.0 - Urinary tract infection, site not specified Plan: Take antibiotics as directed. Increase fluid intake. If symptoms of burning persist, new onset of fever or lower back pain, to follow-up at the clinic. Orders: Orders AMB Urinalysis Automated 09/23/22 Z13.9 - Encounter for screening, unspecified Medications: New sulfamethoxazole-trimethoprim 800-160 mg (Bactrim DS) 1 tab PO BID 10 tabs 0RF 5 days phenazopyridine (Pyridium) 200 mg PO TID 9 tabs 0RF 3 days Coding Level of Care Code Est Pt Level 3 (45562) Diagnoses Urinary tract infection N39.0
[2022-09-23 15:29] VITALS: BP 114/50; PULSE 89; TEMP 36.8; O2SAT 98
== END 2022-09-23 16:45 | disposition home or self-care (01) ==
PROVIDERS: PCP Internal Medicine; Visit Provider Internal Medicine
DX: N39.0 Urinary tract infection, site not specified (principal)
CPT/HCPCS: 81003; 99213

== ENCOUNTER 2022-09-25 09:57 | Outpatient (AMB) | payer MEDICARE, MEDICAID, SELFPAY ==
--- NOTE | 2022-09-25 10:23 | A.OFFVIS_ITS ---
Intake Intake Visit Reasons: 1m/imaging(set) Intake Note: Patient is present for follow up hydronephrosis/ultrasound (imaging 09/12) Urology Medications: vitamin c, methenamine, estrace cream Blood Thinner: clopidogrel Fan Balancer Required: Yes Accompanied by: Daughter Allergies aspirin [ASPIRIN] Allergy (Severe, Verified 09/25/22 23:02) Swelling, rash fish derived [FISH] Allergy (Mild, Verified 09/25/22 23:02) Rash, Swelling Penicillins [PENICILLINS] Allergy (Unknown, Verified 09/25/22 23:02) Swelling Medication List - Last Reconciled 09/25/22 by BRANDON Daniel acetaminophen 650 mg PO Q6H PRN ascorbate calcium (vitamin C) 500 mg PO DAILY 90 days atorvastatin 40 mg PO DAILY [Bedside commode As directed] bethanechol chloride 50 mg PO BID 30 days blood sugar diagnostic (FreeStyle Lite Strips) As directed three times a day blood-glucose meter (FreeStyle Lite Meter kit) As directed 4x/day cholecalciferol (vitamin D3) 50 mcg PO DAILY 30 days clopidogrel 75 mg PO DAILY clotrimazole 1% (Gyne-Lotrimin 7) 1 appful vaginal BEDTIME 7 days cyanocobalamin (vitamin B-12) (Vitamin B-12) 1,000 mcg PO DAILY denosumab (Prolia) 60 mg subcut [id number] 30 days estradiol 0.01%(0.1mg/gram) vaginally 3 times a week; pea sized amount to urethra 3 times a week 30 days ferrous sulfate (Feosol) 325 mg PO DAILY flash glucose sensor (FreeStyle Angela 2 Sensor kit) Once every 14 days furosemide 20 mg PO DAILY hydrocortisone 2.5% 1 appl topical BID insulin aspart U-100 (Novolog FlexPen U-100 Insulin aspart) 0 sliding scale doses See Protocol subcut QIDACHS insulin degludec (Tresiba FlexTouch U-200 insulin) 30 units (0.15 mL) subcut DAILY lancets As directed lansoprazole 30 mg PO DAILY levothyroxine 100 mcg PO DAILY 30 days methenamine hippurate 1 g PO DAILY 90 days metoprolol succinate ER 25 mg PO BID pen needle, diabetic (BD Denisa 2nd Gen Pen Needle) 4x daily [raised toilet seat with arms As directed] [Shower chair with arms As directed] sulfamethoxazole-trimethoprim 800-160 mg (Bactrim DS) 1 tab PO BID 5 days [walker with seat and breaks As directed] HPI HPI Comments History of Present Illness Details Jacqueline is a pleasant 72 year old Citizen Of [place] speaking patient who is accompanied by her daughter at todays visit who is a patient of Dr. Patino. She has a past medical history of bacteremia, CKD stage 3, CVA with left-sided weakness, DM Type II, diabetic neuropathy, elevated liver enzymes, hypertension, hyperlipidemia, iron deficiency anemia, osteoporosis, and vitamin-D deficiency. She presents to the office today for a follow up regarding her incomplete bladder emptying, recurrent UTIs, and neurogenic bladder. Of note, patient was seen approximately 1 month ago at which time a nuclear renal scan was ordered for further assessment evaluation of hydronephrosis noted on previous abdominal ultrasound and CT urogram. These results were reviewed with the patient and her daughter today. Left kidney: 47.3% and right kidney: 52.7%. Abnormal study showing bilateral findings consistent with significant obstruction. Patient's daughter reports having gone to urgent care earlier this week for further assessment evaluation of foul-smelling urine and patient with behavioral eng es. She reports patient was found to have a urinary tract infection and has been on Bactrim full strength b.i.d. In office urinalysis results reviewed with the patient today. Discussed increase in bethanechol to 50 mg b.i.d. as well as performing surgical diagnostic intervention for bilateral hydronephrosis versus surveillance monitoring. Discussed cystoscopy with bilateral retrogrades at length. Discussed risks and benefits. In review of patient's chart it appears BUN from 2018 to present has trended between 26-35 and creatinine since 2018 to present has trended between 1.4-2.2. Currently BUN and creatinine 06/23-- 35 and 1.6. Patient denies flank pain, hematuria, foul-smelling urine, fever and or chills. Patient with longstanding history of incomplete bladder emptying with recurrent urinary tract infections in the setting of neurogenic/diabetic bladder. The patient's daughter who presents with the patient today performs intermittent catheterization 2 times per day. Discussed increasing CIC to 4 times per day however patient and patiens daughter decline at this time. Discussed and stressed the importance of completely emptying bladder as well as affects of incomplete bladder emptying. Discussed potential need for suprapubic tube if unwilling to increase frequency of CIC at home. When asked she currently denies denies urinary urgency, urinary frequency, incontinence, nocturia, hematuria, dysuria, changes to urinary stream, flank pain, fever, and or chills. [facility] Medical History (Updated 09/25/22 @ 11:14 by Claudette Cervantes [facility]-) Abnormal SPEP Bacteremia CKD stage 3 due to type 2 diabetes mellitus Colonoscopy refused CVA (cerebral vascular accident) Diabetes Diabetes type 2, uncontrolled Diabetic neuropathy Elevated liver enzymes History of non anemic vitamin B12 deficiency History of uterine fibroid HTN (hypertension) Hyperlipemia Hyperparathyroidism Hypoglycemia Hypothyroidism Iron deficiency anemia shelter (current) 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 Osteoporosis Personal history of malignant neoplasm of uterus Renal tubular acidosis Serum calcium elevated Subcutaneous mass T2DM (type 2 diabetes mellitus) Urinary retention with incomplete bladder emptying Vitamin D deficiency Yeast infection involving the vagina and surrounding area Surgical History H/O carotid endarterectomy History of cataract surgery History of colonoscopy History of endoscopy History of hysterectomy Family History Maternal Grandmother No problems noted. Mother Pancreatic cancer Social History Household Members: Family Housing: Apartment Do you presently have visiting nurse or other home services: No Alcohol intake: current Alcohol intake frequency: holidays/special occasions only Patient Tobacco Use Status: Never used Tobacco e-Cigarette/Vaping Use: Never Used Second Hand Smoke Exposure: No Advance Directives Date on File: 02/04/20 service: No Current occupational status: unemployed Cognitive needs: No Hearing needs: No Vision needs: Yes Physical Exam Const General: cooperative, comfortable, no acute distress, well developed, alert and awake Orientation/consciousness: patient oriented x3 Limitations: ambulation with cane HEENT Head: Yes normal to inspection, Yes normocephalic and Yes atraumatic Ears: hearing grossly normal bilaterally Eyes General: appearance normal, both eyes and all related structures Neck Neck: Yes normal visual inspection and Yes trachea midline Chest Chest palpation & inspection: normal inspection of the chest Resp Effort & Inspection: normal respiratory effort and able to speak in complete sentences Cardio Rate: regular rate GI Inspection: Yes normal to inspection General: Yes no CVA tenderness Back/Spine/Pelvis Back: no CVA tenderness Skin General skin exam: no rashes or lesions noted Neuro General: patient oriented x3 Extrem General: Yes normal to inspection Psych Appearance: grossly normal and well kempt Mental Status: mental status grossly normal Speech and movement: Normal speech and movement present and Clear speech present Affect: normal affect Attitude: cooperative Thought process: Normal thought process present Thought content: Normal thought content present Insight: Fair insight present (Psych) Judgement: Fair judgement present (Psych) Results AMB Urinalysis, Automated UA Leukoctes 500 Antony/uL Last Edit by [employer] on 09/25/22 10:54 UA Nitrite Negative Last Edit by [employer] on 09/25/22 10:54 UA Urobilinogen 0.2 mg/dL Last Edit by [employer] on 09/25/22 10:54 UA Protein 15 mg/dL Last Edit by [employer] on 09/25/22 10:54 UA pH 6.0 Last Edit by [employer] on 09/25/22 10:54 UA Blood 10 Ian/uL Last Edit by [employer] on 09/25/22 10:54 UA Specific [place] 1.010 Last Edit by [employer] on 09/25/22 10:54 UA Ketone Last Edit by [employer] on 09/25/22 10:54 UA Bilirubin 0 mg/dL Last Edit by [employer] on 09/25/22 10:54 UA Glucose 0 mg/dL Last Edit by [employer] on 09/25/22 10:54 Results Reviewed Results Reviewed: Laboratory Last Values Urine pH (Auto) 6.0 09/25/22 10:30 Specific [place] (Auto) 1.010 09/25/22 10:30 Urine Protein (Auto) 15 mg/dL 09/25/22 10:30 Glucose (UA)(Auto) 0 mg/dL 09/25/22 10:30 Urine Blood (Auto) 10 Ian/uL 09/25/22 10:30 Urine Nitrite (Auto) Negative 09/25/22 10:30 Urine Bilirubin (Auto) 0 mg/dL 09/25/22 10:30 Urine Urobilinogen (Auto) 0.2 mg/dL 09/25/22 10:30 Leukocyte Esterase (Auto) 500 Antony/uL 09/25/22 10:30 Date of Service: 09/12/22 Procedure(s): NM renal flow w pharm int FINDINGS: Initial rapid sequence images show good perfusion to the kidneys. Sequential static images obtained up to 30 minutes post injection reveal adequate concentration. There is evidence of excretory function by 4 minutes post injection. There is adequate accumulation of radioisotope urinary bladder. On post Lasix images, there is no significant washout is seen on the left and minimal washout on the right. The findings are consistent with significant bilateral obstruction. Poor renal function may also contribute to poor washout on post Lasix images. Significant retention of radioisotope within the bladder is noted on postvoid images with persistent bilateral hydroureteronephrosis. The relative function of the two kidneys based on the 2-3 minute images are: Left 47.3% and right 52.7%. No meaningful post Lasix T1/2 values were generated. IMPRESSION: LEFT KIDNEY: Abnormal study showing findings consistent with significant obstruction. ? RIGHT KIDNEY: Abnormal study showing findings consistent with significant obstruction. Assessment & Plan Assessment & Plan (1) Foul smelling urine: Code(s): R82.90 - Unspecified abnormal findings in urine (2) Neurogenic bladder: Code(s): N31.9 - Neuromuscular dysfunction of bladder, unspecified (3) Hydronephrosis: Code(s): N13.30 - Unspecified hydronephrosis (4) Urinary retention with incomplete bladder emptying: Code(s): R33.9 - Retention of urine, unspecified (5) Recurrent UTI: Code(s): N39.0 - Urinary tract infection, site not specified Plan: Risks, benefits and alternatives to therapy were discussed. These include but are not limited to infection, bleeding, damage to local organs and tissues, need for further interventions. ? Anesthetic risks regarding cardiac arrhythmia, blood clots, and potential mortality were discussed. The patient understands the typical recovery time and the outpatient nature of the procedure. After consideration of these risks the patient gives full informed consent and they wish to move ahead with the procedure. Plan In office urinalysis results reviewed with the patient today; as noted above. Continue and finish antibiotics as prescribed by urgent care Discussed follow-up urine culture once antibiotic is complete; order submitted Discussed recent nuclear renal scan at length Discussed surveillance monitoring verses further diagnostic surgical intervention for noted hydronephrosis on abdominal ultrasound, CT urogram, and nuclear renal scan Discussed at length cystoscopy bilateral retrogrades; discussed risks and benefits Will increase bethanechol to 50 mg b.i.d.. Continue CIC 2 times per day; would like to increase however per patient and daughter this is not ideal Will schedule for cystoscopy bilateral retrogrades in the or as discussed Follow-up S/P Dr. Mcintyre's orders; or sooner with any issues, concerns, and or questions. Orders: Orders UA CC w/rflx Micro + Cult Today R82.90 - Unspecified abnormal findings in urine AMB Urinalysis Automated Today Z13.9 - Encounter for screening, unspecified AMB Post Void Residual by ultrasound Today R33.9 - Retention of urine, unspecified Medications: New bethanechol chloride 50 mg PO BID 30 days 60 tabs 1RF N39.0 - Urinary tract infection, site not specified Discontinued phenazopyridine (Pyridium) Discontinued Reason: Patient Completed Course 200 mg PO TID 3 days 9 tabs 0RF nitrofurantoin macrocrystal Discontinued Reason: Patient Completed Course 100 mg PO BID 10 days 20 caps 0RF R32 - Unspecified urinary incontinence Patient Instructions: The patient had an opportunity to ask questions regarding the treatment plan. All questions were answered. Physical exam, labs, and imaging were discussed and reviewed in detail. As well as risks, benefits, and discussion of treatment c hoices. No major barriers to understanding were identified. The patient expressed understanding and agreement with the above treatment plan. The patient was made aware they should contact our office by phone for worsening of their current condition, the appearance of new symptoms, or with any questions or concerns. Compliance is encouraged with any medications and follow up testing that is ordered. It is a privilege to be allowed the opportunity to participate in? your urological care.? Again, if you have any questions or concerns If you have any questions or concerns please do not hesitate to contact me. The office is [phone]. This note is constructed using voice recognition software. While every effort has been made to ensure accuracy store associate errors may have been included. Yours sincerely, BRANDON Daniel Coding Level of Care Code Est Pt Level 4 (86160) Diagnoses Foul smelling urine R82.90 Neurogenic bladder N31.9 Hydronephrosis N13.30 Urinary retention with incomplete bladder emptying R33.9 Recurrent UTI N39.0
== END 2022-09-25 11:37 | disposition home or self-care (01) ==
PROVIDERS: PCP Internal Medicine; Visit Provider Nurse Practitioner Family
DX: R82.90 Unspecified abnormal findings in urine (principal); N31.9 Neuromuscular dysfunction of bladder, unspecified; N13.30 Unspecified hydronephrosis; R33.9 Retention of urine, unspecified; N39.0 Urinary tract infection, site not specified
CPT/HCPCS: 99214

== ENCOUNTER → 2022-09-25 09:57 | Outpatient (BNVA) | payer MEDICARE, MEDICAID, SELFPAY | PROVIDERS: PCP Internal Medicine; Visit Provider Nurse Practitioner Family | DX: R82.90 Unspecified abnormal findings in urine (principal); R33.9 Retention of urine, unspecified; N31.9 Neuromuscular dysfunction of bladder, unspecified; N13.30 Unspecified hydronephrosis; N39.0 Urinary tract infection, site not specified | CPT/HCPCS: 99212 ==

== ENCOUNTER 2022-10-14 15:06 | Outpatient (REF) | payer MEDICARE, MEDICAID, SELFPAY ==
[2022-10-14 16:12] LABS: Appearance Urine Cloudy; Color Urine Yellow; Glucose Urine UA Negative (Negative); Leukocyte Esterase Urine Large (3+) (Negative); Nitrite Urine Negative (Negative); UMIC TRIGGER UA YES; Urine Blood Small (1+) (Negative); Urine Ketones Negative (Negative); Urine Protein Negative (Neg-Trace)
[2022-10-14 16:27] LABS: Bacteria Urine 1+ (None Seen); Hyaline Casts Urine 0-2 /LPF (0-2); RBC Urine 0-2 /HPF (0-2); WBC Urine >50 /HPF (0-5)
== END 2022-10-14 15:07 | disposition home or self-care (01) ==
LOC: HO.HMGCLDS 15:06
PROVIDERS: PCP Internal Medicine; Visit Provider Nurse Practitioner Family
DX: N39.0 Urinary tract infection, site not specified (principal)
CPT/HCPCS: 81001; 87086; 87088; 87186

== ENCOUNTER 2022-11-01 12:46 | Outpatient (AMB) | payer MEDICARE, MEDICAID, SELFPAY ==
[2022-11-01 12:50] VITALS: BP 108/62; PULSE 76; O2SAT 100; BMI 28.6
--- NOTE | 2022-11-01 12:50 | A.OFFPC_ITS ---
Vital Signs 11/01/22 12:50 Height 4 ft 10 in Weight 137 lb BMI 28.6 BP 108/62 Blood Pressure Location Lt brachial Position Sitting Pulse 76 Pulse Source Pulse Oximeter Pulse Oximetry (%) 100 Oxygen Delivery Method Room Air Intake Visit Reasons: Pre OP ~Cystoscopy; bilateral retrogrades Intake Note: Pt is here today for a pre op visit. Pt is having cystoscopy on 11/12/[address] Zapata. Allergies aspirin [ASPIRIN] Allergy (Severe, Verified 11/01/22 12:55) Swelling, rash fish derived [FISH] Allergy (Mild, Verified 11/01/22 12:55) Rash, Swelling Penicillins [PENICILLINS] Allergy (Unknown, Verified 11/01/22 12:55) Swelling Medication List - Last Reconciled 11/01/22 by Kimi Patino MD acetaminophen 650 mg PO Q6H PRN ascorbate calcium (vitamin C) 500 mg PO DAILY 90 days atorvastatin 40 mg PO DAILY [Bedside commode As directed] bethanechol chloride 50 mg PO BID 30 days blood sugar diagnostic (FreeStyle Lite Strips) As directed three times a day blood-glucose meter (FreeStyle Lite Meter kit) As directed 4x/day cholecalciferol (vitamin D3) 50 mcg PO DAILY 30 days clopidogrel 75 mg PO DAILY clotrimazole 1% (Gyne-Lotrimin 7) 1 appful vaginal BEDTIME 7 days cyanocobalamin (vitamin B-12) (Vitamin B-12) 1,000 mcg PO DAILY denosumab (Prolia) 60 mg subcut Q1STOHXQ 30 days estradiol 0.01%(0.1mg/gram) vaginally 3 times a week; pea sized amount to urethra 3 times a week 30 days ferrous sulfate (Feosol) 325 mg PO DAILY flash glucose sensor (FreeStyle Angela 2 Sensor kit) Once every 14 days furosemide 20 mg PO DAILY hydrocortisone 2.5% 1 appl topical BID insulin aspart U-100 (Novolog FlexPen U-100 Insulin aspart) 0 sliding scale doses See Protocol subcut QIDACHS insulin degludec (Tresiba FlexTouch U-200 insulin) 30 units (0.15 mL) subcut DAILY lancets As directed lansoprazole 30 mg PO DAILY levothyroxine 100 mcg PO DAILY 30 days methenamine hippurate 1 g PO DAILY 90 days metoprolol succinate ER 25 mg PO BID nitrofurantoin macrocrystal 100 mg PO BID 14 days pen needle, diabetic (BD Denisa 2nd Gen Pen Needle) 4x daily [raised toilet seat with arms As directed] [Shower chair with arms As directed] [walker with seat and breaks As directed] Tobacco use date assessed: 04/02/22 Dental Screening Dental Screen Date: 11/01/22 Did you have a dental visit in the last 12 months?: No Did you have a dental problem in the last 6 months where you did not have access to dental care?: No Was dental information given to patient?: Patient declined HPI Pre OP ~Cystoscopy; bilateral retrogrades HPI Details Patient is 72-year-old female came in today for preop evaluation. Patient has a history of CVA she is on chronic blood thinners Plavix We will be stopping that 7 days before the procedure. Another concern is her nephropathy she is seeing Dr. Hanley medical administrative technician for management Last visit was August 30, consultation note reviewed. Her creatinine was 1.4, and GFR improved to 49 We will be getting fresh set of labs today. She also have uncontrolled diabetes currently seeing endocrinology [facility]. I have added hemoglobin A1c to her labs. Medication list reviewed. I will create addendum once I have lab report available. 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 Mother Pancreatic cancer Social History Household Members: Family Housing: Apartment Do you presently have visiting nurse or other home services: No Alcohol intake: current Alcohol intake frequency: holidays/special occasions only Patient Tobacco Use Status: Never used Tobacco e-Cigarette/Vaping Use: Never Used Second Hand Smoke Exposure: No Advance Directives Date on File: 02/04/20 service: No Current occupational status: unemployed Cognitive needs: No Hearing needs: No Vision needs: Yes Questionnaire PHQ-9 Over the last 2 weeks, how often have you been bothered by any of the following problems? 1. Little interest or pleasure in doing things: not at all 2. Feeling down, depressed, or hopeless: not at all 3. Trouble falling or staying asleep, or sleeping too much: not at all 4. Feeling tired or having little energy: nearly every day 5. Poor appetite or overeating: not at all 6. Feeling bad about yourself - or that you are a failure or have let yourself or your family down: not at all 7. Trouble concentrating on things, such as reading the newspaper or watching television: not at all 8. Moving or speaking so slowly that other people could have noticed. Or the opposite - being so fidgety or restless that you have been moving around a lot more than usual: not at all 9. Thoughts that you would be better off or of hurting yourself in some way: not at all Total score: 3 Depression Screening Interpretation: Negative 63722 - PHQ-9 Billing: Yes Source: Developed by Drs. Sae Nickerson, Tiffanie Andre, Giovani Chakraborty and colleagues, with an educational elsie from [employer]. Thrive Questionnaire Date Thrive assessed: 09/06/20 Review of Systems Const Denies chills and Denies fever(s) ENT Denies epistaxis and Denies nasal discharge Card Denies chest pain Resp Denies chest congestion, Denies cough and Denies hemoptysis GI Denies diarrhea and Denies nausea Skin/Breast Denies rash Neuro Reports no additional complaints Psych Reports no additional complaints Endo Reports no additional complaints Physical exam (Primary Care) Vital Signs: Last Vital Signs Pulse 76 11/01/22 12:50 BP 108/62 11/01/22 12:50 Pulse Ox 100 11/01/22 12:50 Oxygen Delivery Method Room Air 11/01/22 12:50 BMI result Body Mass Index 28.6 Tobacco/Smoking Status: Tobacco use Status Tobacco use date assessed 04/02/22 11/01/22 12:50 Patient Tobacco Use Status Never used Tobacco 11/01/22 12:50 e-Cigarette/Vaping Use Never Used 11/01/22 12:50 PHQ-9: PHQ-9 Score PHQ-9: Total score 3 11/01/22 13:14 Depression Screening Interpretation: Negative Thrive Assessment: Date of Thrive Assessment Date Thrive assessed 09/06/20 11/01/22 12:50 Const General: cooperative, comfortable and no acute distress Orientation/consciousness: patient oriented x3 HENMT Head: Yes normocephalic Eyes General: appearance normal, both eyes and all related structures Neck Neck: Yes supple Resp Effort & Inspection: normal respiratory effort, no cough and no stridor Cardio Rhythm: regular rhythm Heart sounds: S1 normal heart sound present and S2 normal heart sound present Skin General skin exam: turgor normal Neuro Other: Uses walker for ambulation General: patient oriented x3, tone normal and moves all extremities Extrem Right lower extremity: no edema Left lower extremity: no edema Assessment and Plan Assessment & Plan (1) Pre-op evaluation: Code(s): Z01.818 - Encounter for other preprocedural examination (2) T2DM (type 2 diabetes mellitus): Code(s): E11.9 - Type 2 diabetes mellitus without complications (3) LFT elevation: Code(s): R79.89 - Other specified abnormal findings of blood chemistry (4) Anemia: Code(s): D64.9 - Anemia, unspecified Qualifiers: Anemia type: due to chronic kidney disease (5) CKD stage 3 due to type 2 diabetes mellitus: Code(s): E11.22 - Type 2 diabetes mellitus with diabetic chronic kidney disease; N18.30 - Chronic kidney disease, stage 3 unspecified (6) MCC (current) 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: Code(s): Z79.4 - MCC (current) 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 (7) HTN (hypertension): Code(s): I10 - Essential (primary) hypertension Qualifiers: Hypertension type: primary hypertension Qualified Code(s): I10 - Essential (primary) hypertension (8) Diabetes type 2, uncontrolled: Code(s): E11.65 - Type 2 diabetes mellitus with hyperglycemia Qualifiers: Glycemic state: with hyperglycemia Qualified Code(s): E11.65 - Type 2 diabetes mellitus with hyperglycemia (9) Recurrent UTI: Code(s): N39.0 - Urinary tract infection, site not specified (10) History of CVA (cerebrovascular accident): Code(s): Z86.73 - Personal history of transient ischemic attack (TIA), and cerebral infarction without residual deficits (11) 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 Patient has a history of CVA she is on chronic blood thinners Plavix We will be stopping that 7 days before the procedure. Another concern is her nephropathy she is seeing Dr. Hanley medical administrative technician for management Last visit was August 30, consultation note reviewed. Her creatinine was 1.4, and GFR improved to 49 We will be getting fresh set of labs today. She also have uncontrolled diabetes currently seeing endocrinology [facility]. I have added hemoglobin A1c to her labs. Medication list reviewed. I will create addendum once I have lab report available. Orders: Orders Comprehensive Met. Panel Today D64.9 - Anemia, unspecified, E11.22 - Type 2 diabetes mellitus with diabetic chronic kidney disease, E11.65 - Type 2 diabetes mellitus with hyperglycemia, E11.9 - Type 2 diabetes mellitus without complications, E21.3 - Hyperparathyroidism, unspecified, I10 - Essential (primary) hypertension, N18.30 - Chronic kidney disease, stage 3 unspecified, N39.0 - Urinary tract infection, site not specified, R79.89 - Other specified abnormal findings of blood chemistry, Z01.818 - Encounter for other preprocedural examination, Z79.4 - MCC (current) 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, Z86.73 - Personal history of transient ischemic attack (TIA), and cerebral infarction without residual deficits, Z92.29 - Personal history of other drug therapy Hemoglobin A1c Today D64.9 - Anemia, unspecified, E11.22 - Type 2 diabetes mellitus with diabetic chronic kidney disease, E11.65 - Type 2 diabetes mellitus with hyperglycemia, E11.9 - Type 2 diabetes mellitus without complications, E21.3 - Hyperparathyroidism, unspecified, I10 - Essential (primary) hypertension, N18.30 - Chronic kidney disease, stage 3 unspecified, N39.0 - Urinary tract infection, site not specified, R79.89 - Other specified abnormal findings of blood chemistry, Z01.818 - Encounter for other preprocedural examination, Z79.4 - MCC (current) 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, Z86.73 - Personal history of transient ischemic attack (TIA), and cerebral infarction without residual deficits, Z92.29 - Personal history of other drug therapy Complete Blood Count Auto Diff Today D64.9 - Anemia, unspecified, E11.22 - Type 2 diabetes mellitus with diabetic chronic kidney disease, E11.65 - Type 2 diabetes mellitus with hyperglycemia, E11.9 - Type 2 diabetes mellitus without complications, E21.3 - Hyperparathyroidism, unspecified, I10 - Essential (primary) hypertension, N18.30 - Chronic kidney disease, stage 3 unspecified, N39.0 - Urinary tract infection, site not specified, R79.89 - Other specified abnormal findings of blood chemistry, Z01.818 - Encounter for other preprocedural examination, Z79.4 - MCC (current) 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, Z86.73 - Personal history of transient ischemic attack (TIA), and cerebral infarction without residual deficits, Z92.29 - Personal history of other drug therapy Coding Level of Care Code Est Pt Level 5 (86059) Diagnoses Pre-op evaluation Z01.818 T2DM (type 2 diabetes mellitus) E11.9 LFT elevation R79.89 Anemia D64.9 Anemia type: due to chronic kidney disease CKD stage 3 due to type 2 diabetes mellitus E11.22; N18.30 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
== END 2022-11-01 14:15 | disposition home or self-care (01) ==
PROVIDERS: PCP Internal Medicine; Visit Provider Internal Medicine
DX: E11.22 Type 2 diabetes mellitus with diabetic chronic kidney disease (principal); N18.30 Chronic kidney disease, stage 3 unspecified; Z79.4 Long term (current) 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; I12.9 Hypertensive chronic kidney disease with stage 1 through stage 4 chronic kidney disease, or unspecified chronic kidney disease; Z01.818 Encounter for other preprocedural examination; R79.89 Other specified abnormal findings of blood chemistry; D64.9 Anemia, unspecified; E11.65 Type 2 diabetes mellitus with hyperglycemia; N39.0 Urinary tract infection, site not specified; Z86.73 Personal history of transient ischemic attack (TIA), and cerebral infarction without residual deficits; Z92.29 Personal history of other drug therapy; Z99.89 Dependence on other enabling machines and devices
CPT/HCPCS: 99215

== ENCOUNTER 2022-11-01 13:08 | Outpatient (REF) | payer MEDICARE, MEDICAID, SELFPAY ==
[2022-11-01 16:07] LABS: Basophils Percent Auto 0.3 % (0-2); Eosinophils Percent Auto 0.5 % (0-4); Hematocrit 32.5 % (37.0-47.0); Hemoglobin 10.9 g/dl (12.0-16.0); Imm Gran Abs Auto 0.01 X10*3/uL (0.00-0.03); Imm Gran Pct Auto 0.2 % (0.0-0.4); Lymphocytes Absolute Auto 1.2 X10*3/uL (1.2-4.9); Lymphocytes Percent Auto 21.6 % (20-40); MANUAL DIFF FLAG NO; Mean Corpuscular HGB Conc 33.5 g/dl (31.0-35.0); Mean Corpuscular Hemoglobin 30.5 pg (27.0-33.0); Mean Platelet Volume 10.3 fL (9.4-12.3); Monocytes Absolute Auto 0.5 X10*3/uL (0.1-1.2); Neutrophils Percent Auto 69.4 % (45-73); Platelet Count 229 X10*3/uL (160-400); Red Blood Count 3.57 X10*6/uL (4.20-5.50); Red Cell Distribution Width 11.9 % (11.0-16.0); White Blood Count 5.7 X10*3/uL (4.8-10.8)
[2022-11-01 16:34] LABS: Estimated Average Glucose 189 mg/dL; Hemoglobin A1c % 8.2 % (<6.0)
[2022-11-01 16:48] LABS: Alanine Aminotransferase 46 U/L (0-31); Alkaline Phosphatase 212 U/L (39-117); Anion Gap 16 (12-20); Aspartate Amino Transferase 47 U/L (5-31); Bilirubin Total 0.2 mg/dL (0.0-1.0); Blood Urea Nitrogen 45 mg/dL (9-16); Calcium 9.4 mg/dL (8.4-10.2); Carbon Dioxide 18 mmol/L (22-29); Chloride 99 mmol/L (96-108); Estimated Glomerular Filt Rate 40; Glucose Random 147 mg/dL (60-115); Potassium 4.1 mmol/L (3.3-5.1); Sodium 129 mmol/L (135-145); Total Protein 8.4 g/dL (6.5-8.0)
[2022-11-01 16:50] LABS: Alanine Aminotransferase 49 U/L (0-31); Alkaline Phosphatase 212 U/L (39-117); Anion Gap 16 (12-20); Aspartate Amino Transferase 48 U/L (5-31); Bilirubin Total 0.2 mg/dL (0.0-1.0); Blood Urea Nitrogen 44 mg/dL (9-16); Calcium 9.5 mg/dL (8.4-10.2); Carbon Dioxide 17 mmol/L (22-29); Chloride 100 mmol/L (96-108); Cholesterol 156 mg/dL (<200); Estimated Glomerular Filt Rate 39; Glucose Random 150 mg/dL (60-115); HDL Cholesterol 54 mg/dL (>40); LDL Cholesterol Calculated 79 mg/dL (<100); Potassium 4.2 mmol/L (3.3-5.1); Sodium 129 mmol/L (135-145); Total Protein 8.4 g/dL (6.5-8.0); Triglycerides 118 mg/dL (<150)
[2022-11-01 17:05] LABS: Free T4 (Free Thyroxine) 1.27 ng/dL (0.71-1.85); Thyroid Stimulating Hormone 0.28 uIU/mL (0.32-4.0)
[2022-11-03 10:44] LABS: LDL Cholesterol Direct 78 mg/dL (<100)
== END 2022-11-01 13:09 | disposition home or self-care (01) ==
LOC: HO.HMGCLDS 13:08
PROVIDERS: Absent Provider Internal Medicine; PCP Internal Medicine; Visit Provider Internal Medicine
DX: Z01.818 Encounter for other preprocedural examination (principal); I12.9 Hypertensive chronic kidney disease with stage 1 through stage 4 chronic kidney disease, or unspecified chronic kidney disease; E11.22 Type 2 diabetes mellitus with diabetic chronic kidney disease; N18.30 Chronic kidney disease, stage 3 unspecified; E11.65 Type 2 diabetes mellitus with hyperglycemia; E21.3 Hyperparathyroidism, unspecified; E03.9 Hypothyroidism, unspecified; R79.89 Other specified abnormal findings of blood chemistry; N39.0 Urinary tract infection, site not specified; Z79.4 Long term (current) 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; Z86.73 Personal history of transient ischemic attack (TIA), and cerebral infarction without residual deficits; Z92.29 Personal history of other drug therapy; D64.9 Anemia, unspecified
CPT/HCPCS: 36415; 80053; 80061; 83036; 83721; 84439; 84443; 85025

== ENCOUNTER 2022-11-12 05:59 | Day surgery (SDC) | payer MEDICARE, MEDICAID, SELFPAY ==
[2022-11-07 13:38] VITALS: BMI 28.6
--- NOTE | 2022-11-11 09:42 | HO.ANESPROP2 ---
Documented by User: Mojgan Figueredo NP 11/11/22 09:51 HPI - Anesthesia Eval Consult details Narrative: 72yo F for Cystoscopy, Ureteroroscopy, Retro, Laser Optimized per PCP. Chronically low Na. 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 (Acute) History of CVA (cerebrovascular accident) (Acute) Pre-op evaluation (Acute) Foul smelling urine (Acute) Neurogenic bladder (Acute) Hydronephrosis (Acute) Trigger finger, left index finger (Acute) GERD (gastroesophageal reflux disease) (Acute) Cloudy urine (Acute) Confusion (Acute) Abnormal SPEP (Acute) Personal history of malignant neoplasm of uterus (Acute) Subcutaneous mass (Acute) Localized swelling, mass and lump, right lower limb (Acute) Medicare annual wellness visit, subsequent (Acute) T2DM (type 2 diabetes mellitus) (Acute) Upper respiratory tract infection (Acute) Urinary retention with incomplete bladder emptying (Acute) Osteoporosis (Acute) NAVARRO (nonalcoholic steatohepatitis) (Acute) Bleeding hemorrhoids (Acute) Frequent bowel movements (Acute) Anal pain (Acute) Recurrent UTI (Acute) Feeling of incomplete bladder emptying (Acute) Blood bacterial culture positive (Acute) Acute UTI (Acute) [place] (iron deficiency anemia) (Chronic) Chronic hyperglycemia (Acute) Gram-negative bacteremia (Acute) Leg weakness, bilateral (Acute) Gait disturbance (Acute) Hospital discharge follow-up (Acute) UTI due to Klebsiella species (Acute) Bacteremia due to Klebsiella pneumoniae (Acute) Uncontrolled diabetes mellitus (Acute) Anemia (Acute) Low sodium levels (Acute) LFT elevation (Acute) Rash (Acute) Hospital discharge follow-up (Acute) Pruritic rash (Acute) Medicare annual wellness visit, initial (Acute) Breast screening (Acute) Elevated serum creatinine (Acute) Nephropathy (Acute) Transaminitis (Acute) Itching (Acute) Hypoglycemia (Acute) Hyperparathyroidism (Acute) Hypothyroidism (Acute) Serum calcium elevated (Acute) CVA (cerebral vascular accident) (Acute) CKD stage 3 due to type 2 diabetes mellitus (Acute) 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) 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 (Acute) Hyperlipemia (Acute) Diabetic neuropathy (Acute) HTN (hypertension) (Acute) Bacteremia (Acute) Vitamin D deficiency (Acute) Diabetes type 2, uncontrolled (Acute) Yeast infection involving the vagina and surrounding area (Acute) Past Medical History Medical History Colonoscopy refused Abnormal SPEP Personal history of malignant neoplasm of uterus Subcutaneous mass T2DM (type 2 diabetes mellitus) Urinary retention with incomplete bladder emptying Osteoporosis Elevated liver enzymes Hypoglycemia Hyperparathyroidism Serum calcium elevated CKD stage 3 due to type 2 diabetes mellitus 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 Mother Pancreatic cancer Surgical History Surgical History History of endoscopy History of colonoscopy History of cataract surgery H/O carotid endarterectomy History of hysterectomy Social History Social History Household Members: Family Housing: Apartment Do you presently have visiting nurse or other home services: No Alcohol intake: current Alcohol intake frequency: holidays/special occasions only Patient Tobacco Use Status: Never used Tobacco e-Cigarette/Vaping Use: Never Used Second Hand Smoke Exposure: No Use of substances other than those prescribed or required for medical reasons: No Are you DNR?: No Advance Directives: No Advance Directives Information Provided: Yes Advance Directives Date on File: 02/04/20 service: No Current occupational status: unemployed Cognitive needs: No Hearing needs: No Vision needs: Yes Meds Allergies Allergy/AdvReac Type Severity Reaction Status Date / Time aspirin [ASPIRIN] Allergy Severe Swelling, Verified 11/12/22 06:10 rash fish derived [FISH] Allergy Mild Rash, Verified 11/12/22 06:10 Swelling Penicillins [PENICILLINS] Allergy Unknown Swelling Verified 11/12/22 06:10 Home Medications Medication Instructions Recorded Confirmed Last Taken Type metoprolol succinate 25 mg 25 mg PO BID 01/13/20 11/12/22 01/16/22 History tablet,extended release 24 hr lancets 28 gauge #100 ea 04/25/20 11/12/22 Unknown History furosemide 20 mg tablet 20 mg PO DAILY 07/20/20 11/12/22 01/16/22 History acetaminophen 325 mg tablet 650 mg PO Q6H PRN Pain 01/16/22 11/12/22 Unknown History Exam Exam Date and Time: November 11, 2022 0942 Height,Weight and Vital Signs: Height 4 ft 10 in Weight 62.142 kg Pertinent Lab Results Pertinent Lab Results: Laboratory Tests 11/01/22 11/01/22 13:16 14:17 WBC 5.7 Hgb 10.9 L Hct 32.5 L Plt Count 229 BUN 44 H Creatinine 1.35 Laboratory Tests 11/01/22 13:16 Sodium 129 L Potassium 4.2 Chloride 100 Carbon Dioxide 17 L Narrative Narrative: EKG 2021 Vent. Rate : 074 BPM Atrial Rate : 074 BPM P-R Int : 176 ms QRS Dur : 074 ms QT Int : 376 ms P-R-T Axes : 027 008 014 degrees QTc Int : 417 ms Normal sinus rhythm Normal ECG When compared with ECG of 04-FEB-2020 12:12, Vent. 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 Mother Pancreatic cancer Surgical History Surgical History History of endoscopy History of colonoscopy History of cataract surgery H/O carotid endarterectomy History of hysterectomy History of Problems with Anesthesia: No Social History Social History Household Members: Family Housing: Apartment Do you presently have visiting nurse or other home services: No Alcohol intake: current Alcohol intake frequency: holidays/special occasions only Patient Tobacco Use Status: Never used Tobacco e-Cigarette/Vaping Use: Never Used Second Hand Smoke Exposure: No Use of substances other than those prescribed or required for medical reasons: No Are you DNR?: No Advance Directives: No Advance Directives Information Provided: Yes Advance Directives Date on File: 02/04/20 service: No Current occupational status: unemployed Cognitive needs: No Hearing needs: No Vision needs: Yes Meds Allergies Allergy/AdvReac Type Severity Reaction Status Date / Time aspirin [ASPIRIN] Allergy Severe Swelling, Verified 11/12/22 06:10 rash fish derived [FISH] Allergy Mild Rash, Verified 11/12/22 06:10 Swelling Penicillins [PENICILLINS] Allergy Unknown Swelling Verified 11/12/22 06:10 Home Medications Medication Instructions Recorded Confirmed Last Taken Type metoprolol succinate 25 mg 25 mg PO BID 01/13/20 11/12/22 01/16/22 History tablet,extended release 24 hr lancets 28 gauge #100 ea 04/25/20 11/12/22 Unknown History furosemide 20 mg tablet 20 mg PO DAILY 07/20/20 11/12/22 01/16/22 History acetaminophen 325 mg tablet 650 mg PO Q6H PRN Pain 01/16/22 11/12/22 Unknown History Exam Airway Mallampati Class: II (edentulous) TM Dist: >3cm Neck ROM: Limited Loose/Missing/Broken Teeth: Yes, Upper and Lower Heart: RRR Lungs: CTA Assessment and Plan Assessment Anesthesia Assessment: Anesthesia Plan Discussed Final Anesthetic Review History of Problems with Anesthesia: No NPO: Yes ASA Class: III Final Preanesthetic Review: Meds/Allgs Chart Reviewed, Consent Obtained/Reviewed and Anes Risks/Benef Reviewed Patient Risk: Intermediate Procedure Risk: Low Anesthetic Plan Anesthetic Plan: GA Disposition: Standard PACU
--- NOTE | ~2022-11-12 | FL_ITS ---
EXAMINATION: XR FLUOROSCOPY WITH IMAGES CLINICAL INFORMATION: Bilateral retrogrades. COMPARISON: None available. TECHNIQUE: Fluoroscopy Supervised By: Dr. Francine Willard. Fluoroscopy Time: 21.4 seconds. Cumulative Dose: 4.30 mGy. DAP: Not available. Images: 3. FINDINGS: Fluoroscopy guidance for bilateral retrograde exam. There is bilateral hydronephrosis and ureteral dilatation. FL/FL guidance in OR IMPRESSION: Fluoroscopy guidance for bilateral retrograde exam.
[2022-11-12 06:26] VITALS: BP 145/59; PULSE 66; RESP 16; TEMP 36.3; O2SAT 97
[2022-11-12 06:27] LABS: Glucose, Whole Blood 112 mg/dL (60-115)
[2022-11-12] MEDS: Lactated Ringers 1,000 ML 100 ML IVCONT (06:36)
--- NOTE | 2022-11-12 07:43 | MHC.SHP ---
Pre-Procedural Eval Section A Date of Service: 11/12/22 The patient is an INPATIENT: Yes The History & Physical has been completed within 30 days and I have reviewed it.: Yes Section B Chief Complaint: Unspecified hydronephrosis Allergies: Allergies Allergy/AdvReac Type Severity Reaction Status Date / Time aspirin [ASPIRIN] Allergy Severe Swelling, Verified 11/12/22 06:10 rash fish derived [FISH] Allergy Mild Rash, Verified 11/12/22 06:10 Swelling Penicillins [PENICILLINS] Allergy Unknown Swelling Verified 11/12/22 06:10 Plan Diagnosis/Plan: Unchanged I have reviewed the history and physical and performed a pertinent physical examination on my patient. No changes have occurred unless specified. Cystoscopy bilateral retrogrades, possible ureteroscopy Time Spent With Patient Time: Total time managing care of this patient today ____ minutes.
--- NOTE | 2022-11-12 08:32 | P.OP_ITS ---
Operative Note Operative Note Date of Service: 11/12/22 Narrative: PREOP DIAGNOSIS: Recurrent UTIs, bilateral hydronephrosis, neurogenic bladder POSTOP DIAGNOSIS: Vesicoureteral reflux bilateral grade 4, urethral narrowing, recurrent UTIs, bilateral hydronephrosis, neurogenic bladder PROCEDURE: Cystoscopy, Cystogram, Urethral Dilation SURGEON: Francine Willard MD ANESTHESIA: General Indications: Recurrent Uti's Details of procedure: The patient was brought into the operating room placed on the OR table in supine position. Levaquin 500 mg IV. General anesthesia was administered. The patient was repositioned into lithotomy position, prepped and draped in the usual sterile fashion. Time-out was done per protocol. 2% lidocaine urojet was passed transurethrally into the bladder. A 22 fr cystoscope was placed transurethrally into the bladder with some resistance noted at the meatus, Urine was sent for culture and cytology. The right and left ureteral orifices were visualized to be laterally displaced and patulous. The bladder wall appeared fibrinous with mild erythema. There were no suspicious bladder lesions seen. a 16 Citizen [place] Jennings catheter was placed and contrast mixed with saline was placed under gravity there was noted to be bilateral reflux into both ureters up into the kidneys, noting significant dilation of the ureters and renal pelves. After draining the contrast there was drainage and decompression of bilateral ureters noted. The urethra was dilated starting with the 16 [place] and gradually dilated up to a 26 [place] urethral sound. The patient was brought out of anesthesia and taken to recovery in stable condition. Complications: None Drains: none
[2022-11-12 08:34] VITALS: BP 111/47; PULSE 81; RESP 16; TEMP 36.4; O2SAT 100
[2022-11-12 08:39] VITALS: BP 103/43; PULSE 79; RESP 16; O2SAT 97
[2022-11-12 08:44] VITALS: BP 108/48; PULSE 75; RESP 16; O2SAT 97
[2022-11-12 08:49] VITALS: BP 112/47; PULSE 74; RESP 16; O2SAT 99
[2022-11-12 09:04] VITALS: BP 122/51; PULSE 73; RESP 16; O2SAT 98
[2022-11-13 10:51] LABS: Urine Cytology See Pathology rpt
== END 2022-11-12 09:27 | disposition home or self-care (01) ==
PROVIDERS: PCP Internal Medicine; Visit Provider Urology
PROC: (CPT 52281; principal; 2022-11-12 07:30)
DX: N13.30 Unspecified hydronephrosis (principal); N35.92 Unspecified urethral stricture, female; N31.9 Neuromuscular dysfunction of bladder, unspecified; N39.0 Urinary tract infection, site not specified; R33.9 Retention of urine, unspecified; R82.90 Unspecified abnormal findings in urine; N13.70 Vesicoureteral-reflux, unspecified; E11.22 Type 2 diabetes mellitus with diabetic chronic kidney disease; I12.9 Hypertensive chronic kidney disease with stage 1 through stage 4 chronic kidney disease, or unspecified chronic kidney disease; N18.30 Chronic kidney disease, stage 3 unspecified; I69.354 Hemiplegia and hemiparesis following cerebral infarction affecting left non-dominant side; D50.9 Iron deficiency anemia, unspecified; Z79.4 Long term (current) 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; Z79.899 Other long term (current) drug therapy; Z88.0 Allergy status to penicillin; Z88.8 Allergy status to other drugs, medicaments and biological substances
CPT/HCPCS: 52281; 82947; 87086; 87088; 87186; 88112; C1769; J1956; J2405; J3010; Q9967

== ENCOUNTER → 2022-11-12 05:59 | Outpatient (BNV) | payer MEDICARE, MEDICAID, SELFPAY | PROVIDERS: PCP Internal Medicine; Visit Provider Urology | DX: N35.92 Unspecified urethral stricture, female (principal); N13.30 Unspecified hydronephrosis; N31.8 Other neuromuscular dysfunction of bladder; N39.0 Urinary tract infection, site not specified | CPT/HCPCS: 52281; 74430 ==

== ENCOUNTER 2022-12-02 13:53 | Outpatient (AMB) | payer MEDICARE, MEDICAID, SELFPAY ==
--- NOTE | 2022-12-02 13:58 | MHC.OFFVIS ---
Intake Vital Signs 12/02/22 14:02 Height 4 ft 10 in Weight 138 lb 14.259 oz BMI 29.0 BP 133/48 L Blood Pressure Location Rt brachial Position Sitting Pulse 76 Intake Visit Reasons: Elevated LFTs Intake Note: Jacqueline presents in the office as a follow up for elevated LFTs. CC: She is here today because of her elevate LFTs. Sometimes she will have constipation and stools will be hard. No blood when she has a BM. She states that she does have hemorrhoids. Glaze Sprayer Name: [id number] George Allergies aspirin [ASPIRIN] Allergy (Severe, Verified 12/02/22 21:06) Swelling, rash fish derived [FISH] Allergy (Mild, Verified 12/02/22 21:06) Rash, Swelling Penicillins [PENICILLINS] Allergy (Unknown, Verified 12/02/22 21:) Swelling HPI HPI Comments History of Present Illness Details This is a 72y.o F with PMH of Type 2 diabetes, hypertension, hyperparathyroidism, osteoporosis, CKD, fatty liver, who presents to the office for 2nd opinion. She is accompanied by her daughter Kristy who also provides most of the hx. Pt currently has no acute gastrointestinal complaints to include abd pain, N,V, abd distention, rash/pruritus, shortness of breath. Has had known fatty liver x years for which she has been seeing Fanny Viramontes NP. Has had extensive work up done for this through her including r/o infectious hep, iron overload, autoimmune hep etc. She has also had elastography in 03/2021 which at that time suggested advanced liver disease however suspect was overcalled as pt with normal spleen size and platelet count. Fib 4: 2.12 COUNTS INCLUDE 234 BEDS AT THE [facility] Medical History Colonoscopy refused Abnormal SPEP Personal history of malignant neoplasm of uterus Subcutaneous mass T2DM (type 2 diabetes mellitus) Urinary retention with incomplete bladder emptying Osteoporosis Elevated liver enzymes Hypoglycemia Hyperparathyroidism Serum calcium elevated CKD stage 3 due to type 2 diabetes mellitus FCI (current) 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 Mother Pancreatic cancer Social History Household Members: Family Housing: Apartment Do you presently have visiting nurse or other home services: No Alcohol intake: current Alcohol intake frequency: holidays/special occasions only Patient Tobacco Use Status: Never used Tobacco e-Cigarette/Vaping Use: Never Used Second Hand Smoke Exposure: No Advance Directives Date on File: 02/04/20 service: No Current occupational status: unemployed Cognitive needs: No Hearing needs: No Vision needs: Yes Physical Exam Vital Signs: Last Vital Signs Pulse 76 12/02/22 14:02 BP 133/48 L 12/02/22 14:02 BMI result Body Mass Index 29.0 Gen appear: NAD HEENT: nonicteric Chest: no overt resp distress ABd: soft, nontender, no hepatomegaly Ext: no edema Results AMB Urinalysis, Automated UA Leukoctes 125 Antony/uL Last Edit by [employer] on 12/02/22 16:17 UA Nitrite Negative Last Edit by [employer] on 12/02/22 16:17 UA Urobilinogen 0.2 mg/dL Last Edit by [employer] on 12/02/22 16:17 UA Protein 0 mg/dL Last Edit by [employer] on 12/02/22 16:17 UA pH 6.0 Last Edit by [employer] on 12/02/22 16:17 UA Blood 0 Ian/uL Last Edit by [employer] on 12/02/22 16:17 UA Specific [place] 1.010 Last Edit by [employer] on 12/02/22 16:17 UA Ketone Negative Last Edit by [employer] on 12/02/22 16:17 UA Bilirubin 0 mg/dL Last Edit by [employer] on 12/02/22 16:17 UA Glucose 0 mg/dL Last Edit by [employer] on 12/02/22 16:17 Assessment & Plan Assessment & Plan (1) NAVARRO (nonalcoholic steatohepatitis): Code(s): K75.81 - Nonalcoholic steatohepatitis (NAVARRO) (2) LFT elevation: Code(s): R79.89 - Other specified abnormal findings of blood chemistry (3) Anemia: Code(s): D64.9 - Anemia, unspecified Qualifiers: Anemia type: due to chronic kidney disease Plan 1. Reviewed with the daughter that based on work up previously completed, assessment remains consistent with MAFLD/NAVARRO in the setting of underlying risk factors including poorly controlled T2DM, HTN and HLD. ALP noted a bit higher than expected so will fractionate - suspect may be bone related given underlying hyperparathyroidism. We will also repeat an elastography to look for any progression of stiffness. Pt will likely benefit from q6m US Abd anyway as likely has some degree of advanced fibrosis. 2. Pt also noted to be anemic. Iron studies ordered. However daughter tells me that she has been resistant to getting a colo for many years now. Last attempt to do a colo was in 2012 which was not complete due to poor prep. Pt has refused to go back since then. Follow up in 6 months unless any actionable findings. [for results, daughter Kristy requests to be updated over the phone [phone] ] Orders: Orders Alkaline Phosphatase Isoenzyme 12/02/22 K64.9 - Unspecified hemorrhoids Gamma Glutamyl Transpeptidase 12/02/22 K64.9 - Unspecified hemorrhoids IRON PROFILE 12/02/22 D64.9 - Anemia, unspecified US abdomen comp w elastography 12/02/22 K75.81 - Nonalcoholic steatohepatitis (NAVARRO) Ceruloplasmin 12/02/22 K64.9 - Unspecified hemorrhoids Alpha 1 Anti-trypsin 12/02/22 K64.9 - Unspecified hemorrhoids Ferritin 12/02/22 D64.9 - Anemia, unspecified Coding Level of Care Code Est Pt Level 4 (10902) Diagnoses NAVARRO (nonalcoholic steatohepatitis) K75.81 LFT elevation R79.89 Anemia D64.9 Anemia type: due to chronic kidney disease
[2022-12-02 14:02] VITALS: BP 133/48; PULSE 76; BMI 29.0
== END 2022-12-02 14:40 | disposition home or self-care (01) ==
PROVIDERS: PCP Internal Medicine; Visit Provider Internal Medicine
DX: K75.81 Nonalcoholic steatohepatitis (NASH) (principal); R79.89 Other specified abnormal findings of blood chemistry; D64.9 Anemia, unspecified
CPT/HCPCS: 99214

== ENCOUNTER 2022-12-02 13:53 | Outpatient (REF) | payer MEDICARE, MEDICAID, SELFPAY ==
[2022-12-02 16:10] LABS: Gamma Glutamyl Transpeptidase 311 U/L (7-33); Iron 75 mcg/dL (30-160); Percent Iron Saturation 26 % (15-50); Total Iron Binding Capacity 288 mcg/dL (228-428); Unsaturated Iron Binding 213 ug/dL
[2022-12-02 16:27] LABS: Ferritin 26 ng/mL (10-250)
[2022-12-06 09:29] LABS: Alpha 1 Anti-trypsin 196 mg/dL (83-199); Ceruloplasmin 36 mg/dL (18-53)
[2022-12-10 20:58] LABS: Alk.Phos Iso. Macrohepatic 0 % (<=0); Alk.Phos Isoenzymes Bone 16 % (28-66); Alk.Phos Isoenzymes Intest 3 % (1-24); Alk.Phos Isoenzymes Liver 81 % (25-69); Alk.Phos Isoenzymes Placental 0 % (<=0); Alk.Phos Isoenzymes Total 164 U/L (37-153)
== END 2022-12-02 13:54 | disposition home or self-care (01) ==
LOC: HO.LAB 13:53
PROVIDERS: PCP Internal Medicine; Visit Provider Internal Medicine
DX: I12.9 Hypertensive chronic kidney disease with stage 1 through stage 4 chronic kidney disease, or unspecified chronic kidney disease (principal); N18.30 Chronic kidney disease, stage 3 unspecified; E78.5 Hyperlipidemia, unspecified; N31.9 Neuromuscular dysfunction of bladder, unspecified; N13.30 Unspecified hydronephrosis; R82.90 Unspecified abnormal findings in urine; R33.9 Retention of urine, unspecified; N39.0 Urinary tract infection, site not specified; N13.70 Vesicoureteral-reflux, unspecified; R39.15 Urgency of urination; K75.81 Nonalcoholic steatohepatitis (NASH); R79.89 Other specified abnormal findings of blood chemistry; D64.9 Anemia, unspecified; K64.9 Unspecified hemorrhoids; Z79.01 Long term (current) use of anticoagulants; Z79.899 Other long term (current) drug therapy
CPT/HCPCS: 36415; 51798; 81003; 82103; 82390; 82728; 82977; 83540; 84080; 87086; 87088; 87186; 99212

== ENCOUNTER 2022-12-02 15:21 | Outpatient (AMB) | payer MEDICARE, MEDICAID, SELFPAY ==
--- NOTE | 2022-12-02 15:53 | MHC.OFFVIS ---
Intake Intake Visit Reasons: S/P Cystoscopy, Ureteroroscopy Intake Note: Patient is present for post op cystoscopy/ureteroroscopy Urology Medications: vitamin c, estrace cream Blood Thinner: clopidogrel PVR: 10ml's Combination Saw Operator Required: Yes Accompanied by: Daughter Allergies aspirin [ASPIRIN] Allergy (Severe, Verified 12/02/22 21:06) Swelling, rash fish derived [FISH] Allergy (Mild, Verified 12/02/22 21:06) Rash, Swelling Penicillins [PENICILLINS] Allergy (Unknown, Verified 12/02/22 21:06) Swelling Medication List - Last Reconciled 12/02/22 by BRANDON Daniel acetaminophen 650 mg PO Q6H PRN ascorbate calcium (vitamin C) 500 mg PO DAILY 90 days ascorbic acid (vitamin C) 1 g PO DAILY 90 days atorvastatin 40 mg PO DAILY [Bedside commode As directed] blood sugar diagnostic (FreeStyle Lite Strips) As directed three times a day blood-glucose meter (FreeStyle Lite Meter kit) As directed 4x/day cholecalciferol (vitamin D3) 50 mcg PO DAILY 30 days clopidogrel 75 mg PO DAILY clotrimazole 1% (Gyne-Lotrimin 7) 1 appful vaginal BEDTIME 7 days cyanocobalamin (vitamin B-12) (Vitamin B-12) 1,000 mcg PO DAILY denosumab (Prolia) 60 mg subcut [id number] 30 days estradiol 0.01%(0.1mg/gram) vaginally 3 times a week; pea sized amount to urethra 3 times a week 30 days ferrous sulfate (Feosol) 325 mg PO DAILY flash glucose sensor (FreeStyle Angela 2 Sensor kit) Once every 14 days furosemide 20 mg PO DAILY hydrocortisone 2.5% 1 appl topical BID insulin aspart U-100 (Novolog FlexPen U-100 Insulin aspart) 8 units (0.08 mL) subcut QID insulin degludec (Tresiba FlexTouch U-200 insulin) 30 units (0.15 mL) subcut DAILY lancets As directed lansoprazole 30 mg PO DAILY levothyroxine 88 mcg PO DAILY 30 days methenamine hippurate 1 g PO DAILY 90 days metoprolol succinate ER 25 mg PO BID pen needle, diabetic (BD Denisa 2nd Gen Pen Needle) 4x daily [raised toilet seat with arms As directed] [Shower chair with arms As directed] [walker with seat and breaks As directed] HPI HPI Comments History of Present Illness Details Jacqueline is a pleasant 72 year old Citizen Of [place] speaking patient who is accompanied by her daughter Kristy at todays visit who is a patient of Dr. Patino. She has a past medical history of bacteremia, CKD stage 3, CVA with left-sided weakness, DM Type II, diabetic neuropathy, elevated liver enzymes, hypertension, hyperlipidemia, iron deficiency anemia, osteoporosis, and vitamin-D deficiency. She presents to the office today for a follow up. Of note, patient status post cystoscopy, cystogram, and urethral dilation with Dr. Mcintyre on 11/12/22 for her recurrent urinary tract infections, bilateral hydronephrosis, and neurogenic bladder. Postop diagnosis noted vesicoureteral reflux bilateral grade 4 and urethral narrowing. The bladder wall appeared fibrinous with mild erythema. There were no suspicious bladder lesions seen. When contrast was mixed and placed under gravitiy there was noted to be bilateral reflux into both ureters up into the kidneys, noting significant dilation of the ureters and renal pelves. After draining the contrast there was drainage and decompression of bilateral ureters noted. These findings were reviewed with the patient and her daughter today. When asked patient reports to be doing and feeling well since surgical procedure. In office urinalysis results reviewed with the patient today. PVR 10 mL. Daughter continues to perform CIC 2 times per day morning and night. Discussed at length importance of increasing CIC to 4 times per day versus suprapubic tube placement for incomplete bladder emptying. Patient with recurrent urinary tract infections, incomplete bladder emptying, in the setting of neurogenic bladder. Discussed at length affects of incomplete bladder emptying and recurrent urinary tract infections. Discussed at length treatment options with risks and benefits of increase in CIC verses suprapubic tube placement verses surveillance monitoring. At this time patient and patient's daughter wish to think about treatment plan. Patient's daughter reports feeling bethanechol had been improving incomplete bladder emptying and she had noted decrease in amounts of urine when straight cathing however feels bethanechol caused patient to be agitated and caused sweating. Discussed increasing CIC to 4 times per day however patient and patints daughter decline at this time. Discussed and stressed the importance of completely emptying bladder as well as affects of incomplete bladder emptying. Discussed potential need for suprapubic tube if unwilling to increase frequency of CIC at home. When asked she currently denies denies urinary urgency, urinary frequency, incontinence, nocturia, hematuria, dysuria, changes to urinary stream, flank pain, fever, and or chills. Discussed at length BUN and creatinine as noted below. BUN: 11/23--45, 11/23--44, 06/23--35, 04/25--36, 04/02--33, 03/25--26, 01/22--34, 11/22--31, 05/22--39, 05/22--40 Creatinine: 11/23--1.30, 11/23--1.35, 06/23--1.56, 04/25--1.41, 03/25--1.49, 03/25--1.35, 01/22--1.72, 01/22--1.58, 11/22--1.39, 05/22--1.82, 05/22--1.97 [facility] Medical History Colonoscopy refused Abnormal SPEP Personal history of malignant neoplasm of uterus Subcutaneous mass T2DM (type 2 diabetes mellitus) Urinary retention with incomplete bladder emptying Osteoporosis Elevated liver enzymes Hypoglycemia Hyperparathyroidism Serum calcium elevated CKD stage 3 due to type 2 diabetes mellitus longterm (current) 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 Mother Pancreatic cancer Social History Household Members: Family Housing: Apartment Do you presently have visiting nurse or other home services: No Alcohol intake: current Alcohol intake frequency: holidays/special occasions only Patient Tobacco Use Status: Never used Tobacco e-Cigarette/Vaping Use: Never Used Second Hand Smoke Exposure: No Advance Directives Date on File: 02/04/20 service: No Current occupational status: unemployed Cognitive needs: No Hearing needs: No Vision needs: Yes Review of Systems Const Reports as per [facility] Eyes Reports no additional complaints ENT Reports no additional complaints Card Reports as per [facility] Resp Reports no additional complaints GI Reports as per HPI Reports as per [facility] Musc Reports as per [facility] Neuro Reports as per [facility] Endo Details: patient reports she is diabetic Reports as per HPI Stewart/Lymph Reports no additional complaints Aller/Immun Reports no additional complaints Physical Exam Const General: cooperative, comfortable, no acute distress, well developed, alert and awake Orientation/consciousness: patient oriented x3 Limitations: ambulation with cane HEENT Head: Yes normal to inspection, Yes normocephalic and Yes atraumatic Ears: hearing grossly normal bilaterally Eyes General: appearance normal, both eyes and all related structures Neck Neck: Yes normal visual inspection and Yes trachea midline Chest Chest palpation & inspection: normal inspection of the chest Resp Effort & Inspection: normal respiratory effort and able to speak in complete sentences Cardio Rate: regular rate GI Inspection: Yes normal to inspection General: Yes no CVA tenderness Back/Spine/Pelvis Back: no CVA tenderness Skin General skin exam: no rashes or lesions noted Neuro General: patient oriented x3 Extrem General: Yes normal to inspection Psych Appearance: grossly normal and well kempt Mental Status: mental status grossly normal Speech and movement: Normal speech and movement present and Clear speech present Affect: normal affect Attitude: cooperative Thought process: Normal thought process present Thought content: Normal thought content present Insight: Fair insight present (Psych) Judgement: Fair judgement present (Psych) Office Procedures Post Void Residual Post Residual Void Post Void Residual (PVR): 10 [id number]-[id number] Void Residual by ultrasound Results AMB Urinalysis, Automated UA Leukoctes 125 Antony/uL Last Edit by Radha Prince on 12/02/22 16:17 UA Nitrite Negative Last Edit by Radha Prince on 12/02/22 16:17 UA Urobilinogen 0.2 mg/dL Last Edit by [employer] on 12/02/22 16:17 UA Protein 0 mg/dL Last Edit by Radha Prince on 12/02/22 16:17 UA pH 6.0 Last Edit by Radha Hallfernanda on 12/02/22 16:17 UA Blood 0 Ian/uL Last Edit by Radha Isabelfernanda on 12/02/22 16:17 UA Specific [place] 1.010 Last Edit by Radha Isabelfernanda on 12/02/22 16:17 UA Ketone Negative Last Edit by Radha Prince on 12/02/22 16:17 UA Bilirubin 0 mg/dL Last Edit by Radha Isabelfernanda on 12/02/22 16:17 UA Glucose 0 mg/dL Last Edit by Radha Isabelfernanda on 12/02/22 16:17 Results Reviewed Results Reviewed: Laboratory Last Values Urine pH (Auto) 6.0 12/02/22 15:56 Specific [place] (Auto) 1.010 12/02/22 15:56 Urine Protein (Auto) 0 mg/dL 12/02/22 15:56 Glucose (UA)(Auto) 0 mg/dL 12/02/22 15:56 Urine Ketones (Auto) Negative 12/02/22 15:56 Urine Blood (Auto) 0 Ian/uL 12/02/22 15:56 Urine Nitrite (Auto) Negative 12/02/22 15:56 Urine Bilirubin (Auto) 0 mg/dL 12/02/22 15:56 Urine Urobilinogen (Auto) 0.2 mg/dL 12/02/22 15:56 Leukocyte Esterase (Auto) 125 Antony/uL 12/02/22 15:56 Assessment & Plan Assessment & Plan (1) Neurogenic bladder: Code(s): N31.9 - Neuromuscular dysfunction of bladder, unspecified (2) Hydronephrosis: Code(s): N13.30 - Unspecified hydronephrosis (3) Cloudy urine: Code(s): R82.90 - Unspecified abnormal findings in urine (4) Urinary retention with incomplete bladder emptying: Code(s): R33.9 - Retention of urine, unspecified (5) Recurrent UTI: Code(s): N39.0 - Urinary tract infection, site not specified (6) Reflux, vesicoureteral: Code(s): N13.70 - Vesicoureteral-reflux, unspecified Plan In office urinalysis results reviewed with the patient today; will send for urine culture PVR 10 mL. Discussed at length results of cystoscopy, cystogram, and urethral dilation. Discussed at length further treatment options with increase in CIC verses suprapubic tube versus surveillance monitoring; discussed at length risks and benefits of these asforementioned interventions at length. Will obtain BUN and creatinine for further assessment evaluation. Discussed at length affects of incomplete bladder emptying on kidneys and reviewed BUN and Creatinine results over the last year (trends). Discussed importance of compliance with Estrace cream daily Follow-up in 3 months with PVR and labs to be completed prior; or sooner with any issues, concerns, and or questions Orders: Orders AMB Post Void Residual by ultrasound Today R33.9 - Retention of urine, unspecified Urine Culture Today N39.0 - Urinary tract infection, site not specified Creatinine 3 Months R39.15 - Urgency of urination AMB Urinalysis Automated Today Z13.9 - Encounter for screening, unspecified Blood Urea Nitrogen 3 Months R39.15 - Urgency of urination Patient Instructions: The patient had an opportunity to ask questions regarding the treatment plan. All questions were answered. Physical exam, labs, and imaging were discussed and reviewed in detail. As well as risks, benefits, and discussion of treatment choices. No major barriers to understanding were identified. The patient expressed understanding and agreement with the above treatment plan. The patient was made aware they should contact our office by phone for worsening of their current condition, the appearance of new symptoms, or with any questions or concerns. Compliance is encouraged with any medications and follow up testing that is ordered. It is a privilege to be allowed the opportunity to participate in? your urological care.? Again, if you have any questions or concerns If you have any questions or concerns please do not hesitate to contact me. The office is [phone]. This note is constructed using voice recognition software. While every effort has been made to ensure accuracy ethylbenzene converter operator errors may have been included. Yours sincerely, BRANDON Daniel Coding Level of Care Code Est Pt Level 4 (28217) Diagnoses Neurogenic bladder N31.9 Hydronephrosis N13.30 Cloudy urine R82.90 Urinary retention with incomplete bladder emptying R33.9 Recurrent UTI N39.0 Reflux, vesicoureteral N13.70 CPT Codes Post Residual Void - PVR CPT Code: 90011-Xtdx Void Residual by ultrasound ([id number])
== END 2022-12-02 16:34 | disposition home or self-care (01) ==
PROVIDERS: PCP Internal Medicine; Visit Provider Nurse Practitioner Family
DX: N31.9 Neuromuscular dysfunction of bladder, unspecified (principal); N13.30 Unspecified hydronephrosis; R82.90 Unspecified abnormal findings in urine; R33.9 Retention of urine, unspecified; N39.0 Urinary tract infection, site not specified; N13.70 Vesicoureteral-reflux, unspecified
CPT/HCPCS: 99214

== ENCOUNTER 2022-12-02 16:35 | Outpatient (REF) | payer MEDICARE, MEDICAID, SELFPAY | END 2022-12-02 16:36 | disposition home or self-care (01) | LOC: HO.LNP 16:35 | PROVIDERS: Visit Provider Nurse Practitioner Family | DX: Z13.89 Encounter for screening for other disorder (principal) | CPT/HCPCS: 87086 ==

== ENCOUNTER 2022-12-10 11:25 | Outpatient (AMB) | payer MEDICARE, MEDICAID, SELFPAY ==
[2022-12-10 11:34] VITALS: BP 140/58; PULSE 77; O2SAT 99; BMI 29.2
--- NOTE | 2022-12-10 11:34 | MHC.PC.OV ---
Vital Signs 12/10/22 11:34 Height 4 ft 10 in Weight 139 lb 8 oz BMI 29.2 BP 140/58 H Blood Pressure Location Rt brachial Position Sitting Pulse 77 Pulse Source Pulse Oximeter Pulse Oximetry (%) 99 Oxygen Delivery Method Room Air Intake Visit Reasons: Annual PE Allergies aspirin [ASPIRIN] Allergy (Severe, Verified 12/10/22 11:35) Swelling, rash fish derived [FISH] Allergy (Mild, Verified 12/10/22 11:35) Rash, Swelling Penicillins [PENICILLINS] Allergy (Unknown, Verified 12/10/22 11:35) Swelling Medication List - Last Reconciled 12/10/22 by Kimi Patino MD acetaminophen 650 mg PO Q6H PRN ascorbate calcium (vitamin C) 500 mg PO DAILY 90 days atorvastatin 40 mg PO DAILY [Bedside commode As directed] blood sugar diagnostic (FreeStyle Lite Strips) As directed three times a day blood-glucose meter (FreeStyle Lite Meter kit) As directed 4x/day cholecalciferol (vitamin D3) 50 mcg PO DAILY 30 days clopidogrel 75 mg PO DAILY cyanocobalamin (vitamin B-12) (Vitamin B-12) 1,000 mcg PO DAILY denosumab (Prolia) 60 mg subcut [id number] 30 days estradiol 0.01%(0.1mg/gram) vaginally 3 times a week; pea sized amount to urethra 3 times a week 30 days ferrous sulfate (Feosol) 325 mg PO DAILY flash glucose sensor (FreeStyle Angela 2 Sensor kit) Once every 14 days furosemide 20 mg PO DAILY hydrocortisone 2.5% 1 appl topical BID insulin aspart U-100 (Novolog FlexPen U-100 Insulin aspart) 8 units (0.08 mL) subcut QID insulin degludec (Tresiba FlexTouch U-200 insulin) 30 units (0.15 mL) subcut DAILY lancets As directed lansoprazole 30 mg PO DAILY levothyroxine 88 mcg PO DAILY 30 days metoprolol succinate ER 25 mg PO BID nitrofurantoin macrocrystal 100 mg PO BID 14 days pen needle, diabetic (BD Denisa 2nd Gen Pen Needle) 4x daily [raised toilet seat with arms As directed] [Shower chair with arms As directed] [walker with seat and breaks As directed] Tobacco use date assessed: 12/10/22 Fall risk assessment: No Falls in past year Last assessed Fall Risk: 12/10/22 Dental Screening Dental Screen Date: 12/10/22 Did you have a dental visit in the last 12 months?: No Did you have a dental problem in the last 6 months where you did not have access to dental care?: No Was dental information given to patient?: Patient declined HPI HPI Comments History of Present Illness Details AWV Medical/social history reviewed Past medical history reviewed [place] of care / care team list updated Surgical/ hospitalization history reviewed Current medications including OTC and supplements reviewed Family history reviewed Tobacco controlled form updated Alcohol use form updated Illicit drug use in social history reviewed Current diagnosis of depression ?screening updated Appropriate PHQ 2/PHQ-9 completed . Vital signs reviewed Alcohol tobacco drug use reviewed and discussed . MMSE completed . ? Fall risk: ?Assessed Fall history: ?None Have you had any falls with injury in the past year?? No Have you had 2 or more falls in the past year?? No Fall risk assessment completed Home safety discussed with the patient Functional ability assessed and discussed and documented Activities of daily living reviewed and appropriate actions taken . HRA filled out by the MA reviewed by provider and scanned . Appropriate written screening schedule established . Any health advise needed provided . Advance care planning discussed with the patient healthcare proxy is patient's daughter Kristy, paperwork on file, we will send MOLST forms to patient she will discuss it with her daughter and then bring them over for signature Examination IPPE/AWE: Balance walker dependent Romberg unable Tandem unable walk-in turn unable rise from sit to stand unable . ?Hearing ?Patient have difficulty hearing in group setting . Medication list reviewed, patient is stable on medications All other providers patient is seeing discussed and noted . [facility] Medical History Colonoscopy refused Abnormal SPEP Personal history of malignant neoplasm of uterus Subcutaneous mass T2DM (type 2 diabetes mellitus) Urinary retention with incomplete bladder emptying Osteoporosis Elevated liver enzymes Hypoglycemia Hyperparathyroidism Serum calcium elevated CKD stage 3 due to type 2 diabetes mellitus senior care (current) 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 Mother Pancreatic cancer Social History Household Members: Family Housing: Apartment Do you presently have visiting nurse or other home services: No Alcohol intake: current Alcohol intake frequency: holidays/special occasions only Patient Tobacco Use Status: Never used Tobacco e-Cigarette/Vaping Use: Never Used Second Hand Smoke Exposure: No Advance Directives Date on File: 02/04/20 service: No Current occupational status: unemployed Cognitive needs: No Hearing needs: No Vision needs: Yes Questionnaire PHQ-9 Over the last 2 weeks, how often have you been bothered by any of the following problems? 1. Little interest or pleasure in doing things: not at all 2. Feeling down, depressed, or hopeless: several days 3. Trouble falling or staying asleep, or sleeping too much: several days 4. Feeling tired or having little energy: nearly every day 5. Poor appetite or overeating: not at all 6. Feeling bad about yourself - or that you are a failure or have let yourself or your family down: not at all 7. Trouble concentrating on things, such as reading the newspaper or watching television: several days 8. Moving or speaking so slowly that other people could have noticed. Or the opposite - being so fidgety or restless that you have been moving around a lot more than usual: several days 9. Thoughts that you would be better off or of hurting yourself in some way: not at all Total score: 7 Depression Screening Interpretation: Negative Depression Screening Done: Yes 46103 - PHQ-9 Billing: Yes Source: Developed by Drs. Sae Nickerson, Tiffanie Andre, Giovani Chakraborty and colleagues, with an educational elsie from [employer]. Thrive Questionnaire Date Thrive assessed: 09/06/20 I am a: Patient What is your living situation today?: I have a steady place to live Within the past 12 months, did the food you bought not last and you didn't have the money to get more?: Never true Within the past 12 months, did you worry whether your food would run out before you got money to buy more?: Never true Do you have trouble paying for medicines?: No Do you have trouble getting transportation to medical appointments?: No Do you have trouble paying your heating and electricity bill?: No Do you have trouble taking care of your child, family member or friend?: Yes Do you have trouble with day-to-day activities such as bathing, preparing meals, shopping, managing finances, etc.?: Yes Are you currently unemployed and looking for a job?: No Are you interested in more education?: No VINCENZO-7 AMB Questionnaire VINCENZO-7 Date VINCENZO - 7 assessed: 12/10/22 Feeling nervous, anxious, or on edge: 1 = Several days Not being able to stop or control worryin = Not at all Worrying too much about different things: 0 = Not at all Trouble relaxin = Several days Being so restless that it is hard to sit still: 1 = Several days Becoming easily annoyed or irritable: 1 = Several days Feeling afraid as if something awful might happen: 0 = Not at all Total VINCENZO-7 score (0-4 normal; 5-9 mild; 10-14 moderate; 15-21 severe): 4 Source: Developed by Drs. Sae Nickerson, Tiffanie Andre, Giovani Chakraborty and colleagues, with an educational elsie from [employer]. VINCENZO-7 Assessment Billing VINCENZO-7 Assessment Tool: VINCENZO-7 Assessment 96974 Physical exam (Primary Care) Vital Signs: Last Vital Signs Pulse 77 12/10/22 11:34 BP 140/58 H 12/10/22 11:34 Pulse Ox 99 12/10/22 11:34 Oxygen Delivery Method Room Air 12/10/22 11:34 BMI result Body Mass Index 29.2 Tobacco/Smoking Status: Tobacco use Status Tobacco use date assessed 12/10/22 12/10/22 11:38 Patient Tobacco Use Status Never used Tobacco 12/10/22 11:38 e-Cigarette/Vaping Use Never Used 12/10/22 11:38 PHQ-9: PHQ-9 Score PHQ-9: Total score 7 12/10/22 12:07 Depression Screening Interpretation: Negative Thrive Assessment: Date of Thrive Assessment Date Thrive assessed 09/06/20 12/10/22 11:38 Assessment and Plan Assessment & Plan (1) History of CVA (cerebrovascular accident): Code(s): Z86.73 - Personal history of transient ischemic attack (TIA), and cerebral infarction without residual deficits (2) Left hemiparesis: Code(s): G81.94 - Hemiplegia, unspecified affecting left nondominant side (3) Shoulder pain, left: Code(s): M25.512 - Pain in left shoulder Orders: Referrals [facility] Referral G81.94 - Hemiplegia, unspecified affecting left nondominant side, M25.512 - Pain in left shoulder, Z86.73 - Personal history of transient ischemic attack (TIA), and cerebral infarction without residual deficits Coding Diagnoses History of CVA (cerebrovascular accident) Z86.73 Left hemiparesis G81.94 Shoulder pain, left M25.512 Additional Codes VINCENZO-7 Assessment Billing - VINCENOZ-7 Assessment Tool: VINCENZO-7 Assessment [id number] ([id number])
--- NOTE | 2022-12-10 12:11 | AM.OFFVISMDC ---
Intake Vital Signs 12/10/22 11:34 12/10/22 12:15 Height 4 ft 10 in Weight 139 lb 8 oz BMI 29.2 29.2 BP 140/58 H Blood Pressure Location Rt brachial Position Sitting Pulse 77 Pulse Source Pulse Oximeter Pulse Oximetry (%) 99 Oxygen Delivery Method Room Air Intake Visit Reasons: [facility] G0439 Allergies aspirin [ASPIRIN] Allergy (Severe, Verified 12/10/22 11:35) Swelling, rash fish derived [FISH] Allergy (Mild, Verified 12/10/22 11:35) Rash, Swelling Penicillins [PENICILLINS] Allergy (Unknown, Verified 12/10/22 11:35) Swelling Medication List - Last Reconciled 12/10/22 by Kimi Patino MD acetaminophen 650 mg PO Q6H PRN ascorbate calcium (vitamin C) 500 mg PO DAILY 90 days atorvastatin 40 mg PO DAILY [Bedside commode As directed] blood sugar diagnostic (FreeStyle Lite Strips) As directed three times a day blood-glucose meter (FreeStyle Lite Meter kit) As directed 4x/day cholecalciferol (vitamin D3) 50 mcg PO DAILY 30 days clopidogrel 75 mg PO DAILY cyanocobalamin (vitamin B-12) (Vitamin B-12) 1,000 mcg PO DAILY denosumab (Prolia) 60 mg subcut [id number] 30 days estradiol 0.01%(0.1mg/gram) vaginally 3 times a week; pea sized amount to urethra 3 times a week 30 days ferrous sulfate (Feosol) 325 mg PO DAILY flash glucose sensor (FreeStyle Angela 2 Sensor kit) Once every 14 days furosemide 20 mg PO DAILY hydrocortisone 2.5% 1 appl topical BID insulin aspart U-100 (Novolog FlexPen U-100 Insulin aspart) 8 units (0.08 mL) subcut QID insulin degludec (Tresiba FlexTouch U-200 insulin) 30 units (0.15 mL) subcut DAILY lancets As directed lansoprazole 30 mg PO DAILY levothyroxine 88 mcg PO DAILY 30 days metoprolol succinate ER 25 mg PO BID nitrofurantoin macrocrystal 100 mg PO BID 14 days pen needle, diabetic (BD Denisa 2nd Gen Pen Needle) 4x daily [raised toilet seat with arms As directed] [Shower chair with arms As directed] [walker with seat and breaks As directed] HPI [facility] G0439 HPI Details Patient is 72-year-old female with history of stroke and left hemiparesis complaining of pain left shoulder, her shoulder is already week She is requesting physical therapy at home. HPI Comments History of Present Illness Details AWV Medical/social history reviewed Past medical history reviewed [place] of care / care team list updated Surgical/ hospitalization history reviewed Current medications including OTC and supplements reviewed Family history reviewed Tobacco controlled form updated Alcohol use form updated Illicit drug use in social history reviewed Current diagnosis of depression ?screening updated Appropriate PHQ 2/PHQ-9 completed . Vital signs reviewed Alcohol tobacco drug use reviewed and discussed . MMSE completed . ? Fall risk: ?Assessed Fall history: ?None Have you had any falls with injury in the past year?? No Have you had 2 or more falls in the past year?? No Fall risk assessment completed Home safety discussed with the patient Functional ability assessed and discussed and documented Activities of daily living reviewed and appropriate actions taken . HRA filled out by the MA reviewed by provider and scanned . Appropriate written screening schedule established . Any health advise needed provided . Advance care planning discussed with the patient healthcare proxy is patient's daughter Kristy, paperwork on file, we will send MOLST forms to patient she will discuss it with her daughter and then bring them over for signature Examination IPPE/AWE: Balance walker dependent Romberg unable Tandem unable walk-in turn unable rise from sit to stand unable . ?Hearing ?Patient have difficulty hearing in group setting . Medication list reviewed, patient is stable on medications All other providers patient is seeing discussed and noted . [facility] Medical History Colonoscopy refused Abnormal SPEP Personal history of malignant neoplasm of uterus Subcutaneous mass T2DM (type 2 diabetes mellitus) Urinary retention with incomplete bladder emptying Osteoporosis Elevated liver enzymes Hypoglycemia Hyperparathyroidism Serum calcium elevated CKD stage 3 due to type 2 diabetes mellitus [facility] (current) 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 Mother Pancreatic cancer Social History Household Members: Family Housing: Apartment Do you presently have visiting nurse or other home services: No Alcohol intake: current Alcohol intake frequency: holidays/special occasions only Patient Tobacco Use Status: Never used Tobacco e-Cigarette/Vaping Use: Never Used Second Hand Smoke Exposure: No Advance Directives Date on File: 02/04/20 service: No Current occupational status: unemployed Cognitive needs: No Hearing needs: No Vision needs: Yes Questionnaire Medicare Wellness Checkup [age] What gender do you identify with?: female During the past 4 weeks, how much have you been bothered by emotional problems such as feeling anxious, depressed, irritable, sad or downhearted, and blue?: quite a bit During the past 4 weeks, has your physical & emotional health limited your social activities with family, friends, neighbors, or groups?: not at all During the past 4 weeks, how much bodily pain have you generally had?: very mild pain During the past 4 weeks, was someone available to help you if you needed & wanted help?: yes, as much as I wanted During the past 4 weeks, what was the hardest physical activity you could do for at least 2 minutes?: moderate Can you get to places out of walking distance without help? (For eg., can you travel alone on buses, taxis or drive your car?): No Can you go shopping for groceries or clothes without someone's help?: No Can you prepare your own meals?: No Can you do your housework without help?: No Because of any health problems, do you need the help of another person with your personal care needs such as eating, bathing, dressing or getting around the house?: Yes Can you handle your own money without help?: Yes During the past 4 weeks, how would you rate your health in general?: fair During the past 4 weeks how have things been going for you?: good & bad parts about equal Are you having difficulties driving your car?: not applicable, I don't use a car Do you always fasten your seat belt when you are in a car?: yes, usually During past 4 weeks, have you been bothered by the following: never: Sexual problems?, Trouble eating well?, Teeth or denture problems?, Problems using the telephone? and Tiredness or fatigue? and often: Falling or dizzy when standing up Have you fallen 2 or more times in the past year?: Yes Are you afraid of falling?: Yes Are you a smoker?: no During the past 4 weeks, how many drinks of wine, beer, or other alcoholic beverages did you have?: no alcohol at all Do you exercise for about 20 minutes 3 or more times a week?: no, I usually do not exercise this much Have you been given information to help with the following?: yes: Hazards in your house that might hurt you? and yes: Keeping track of your medications? How often do you have trouble taking medicines the way you have been told to take them?: I always take medicine as prescribed How confident are you that you can control & manage most of your health problems?: very confident What is your race?: or origin or descent Mini Mental State Exam (MMSE) Orientation What is the (year) (season) (date) (day) (month)?: year, season, date, day and month Where are we (state) (county) (town or city) (hospital) (floor)?: state, county, town or city, hospital/clinic and floor Score Score: 10 Activity of Daily Living Bathing - sponge bath, tub bath or shower: receives help in bathing more than one body part (or not bathed) Dressing - getting clothes from closets & drawers, including inner/outer garments & fasteners.: receives help getting clothes or getting dressed, or stays undressed Toileting - going to the 'toilet room' for urine/bowel elimination & cleaning self/arranging clothes: receives help going to toilet room, cleaning self or arranging clothes Transfer: moves in & out of bed and chair without help (may use support object) Continence: has occasional 'accidents' Feeding: feeds self except getting help in cutting meat/buttering bread Total Score: 2 Information obtained from: informant (Patient's daughter who is present during this visit Kristy) Using telephone: needs assistance Traveling: dependent Shopping: dependent Preparing meals: dependent Housework: dependent Taking medicine: dependent Managing money: dependent Review of Systems Const Denies chills and Denies fever(s) ENT Denies epistaxis and Denies nasal discharge Card Denies chest pain Resp Denies chest congestion, Denies cough and Denies hemoptysis GI Denies diarrhea and Denies nausea Skin/Breast Denies rash Neuro Reports no additional complaints Psych Reports no additional complaints Endo Reports no additional complaints Physical Exam Vital Signs: Last Vital Signs Pulse 77 12/10/22 11:34 BP 140/58 H 12/10/22 11:34 Pulse Ox 99 12/10/22 11:34 Oxygen Delivery Method Room Air 12/10/22 11:34 BMI result Body Mass Index 29.2 Const General: cooperative, comfortable and no acute distress HEENT Head: Yes normocephalic Eyes General: appearance normal, both eyes and all related structures Neck Other: Supple Neck: Yes supple Resp Effort & Inspection: normal respiratory effort, no cough and no stridor Cardio Rhythm: regular rhythm Heart sounds: S1 normal heart sound present and S2 normal heart sound present Skin General skin exam: turgor normal Neuro Other: Weakness left upper extremity with limited range of motion left shoulder Extrem Other: No lower extremity swelling. Right lower extremity: no edema Left lower extremity: no edema Psych Other: Normal effect, speech clear Assessment & Plan Assessment & Plan (1) Medicare annual wellness visit, subsequent: Code(s): Z00.00 - Encounter for general adult medical examination without abnormal findings (2) History of CVA (cerebrovascular accident): Code(s): Z86.73 - Personal history of transient ischemic attack (TIA), and cerebral infarction without residual deficits (3) Left hemiparesis: Code(s): G81.94 - Hemiplegia, unspecified affecting left nondominant side (4) Shoulder pain, left: Code(s): M25.512 - Pain in left shoulder Qualifiers: Chronicity: chronic Qualified Code(s): M25.512 - Pain in left shoulder; G89.29 - Other chronic pain Plan With start physical therapy for left shoulder weakness and pain since this is an ongoing problem Orders: Referrals [facility] Referral G81.94 - Hemiplegia, unspecified affecting left nondominant side, M25.512 - Pain in left shoulder, Z86.73 - Personal history of transient ischemic attack (TIA), and cerebral infarction without residual deficits Coding Level of Care Code Medicare Subsequent (G0439) Est Pt Level 3 (04523) Diagnoses Medicare annual wellness visit, subsequent Z00.00 History of CVA (cerebrovascular accident) Z86.73 Left hemiparesis G81.94 Chronic left shoulder pain M25.512; G89.29 Chronicity: chronic CPT Codes Advance Care Planning - Advance Care Planning discussion: On file, no changes ([id number]) Advance Care Planning Advance Care Planning discussion: On file, no changes
[2022-12-10 12:15] VITALS: BMI 29.2
== END 2022-12-10 15:03 | disposition home or self-care (01) ==
PROVIDERS: Visit Provider Internal Medicine
DX: Z00.00 Encounter for general adult medical examination without abnormal findings (principal); G81.94 Hemiplegia, unspecified affecting left nondominant side; M25.512 Pain in left shoulder; G89.29 Other chronic pain
CPT/HCPCS: 1123F; G0439

== ENCOUNTER 2023-01-15 15:02 | Outpatient (AMB) | payer MEDICARE, MEDICAID, SELFPAY ==
[2023-01-15 15:04] VITALS: BP 130/80; PULSE 77; TEMP 36.6; O2SAT 99; BMI 29.0
--- NOTE | 2023-01-15 15:04 | AM.OFFWIN_ITS ---
Intake Vital Signs 01/15/23 15:04 Height 4 ft 10 in Weight 139 lb BMI 29.0 BP 130/80 Blood Pressure Location Rt brachial Position Sitting Pulse 77 Pulse Source Pulse Oximeter Temp 97.8 F Temp Source Temporal Artery Scan Pulse Oximetry (%) 99 Oxygen Delivery Method Room Air Intake Visit Reasons: EP fall/large lump on left buttocks Intake Note: pt is here for c/o fall and lump on left buttocks Patient Tobacco Use Status: Never used Tobacco Allergies aspirin [ASPIRIN] Allergy (Severe, Verified 01/15/23 15:44) Swelling, rash fish derived [FISH] Allergy (Mild, Verified 01/15/23 15:44) Rash, Swelling Penicillins [PENICILLINS] Allergy (Unknown, Verified 01/15/23 15:44) Swelling Medication List - Last Reconciled 01/15/23 by Negrito Mendenhall MD acetaminophen 650 mg PO Q6H PRN ascorbate calcium (vitamin C) 500 mg PO DAILY 90 days atorvastatin 40 mg PO DAILY [Bedside commode As directed] blood sugar diagnostic (FreeStyle Lite Strips) As directed three times a day blood-glucose meter (FreeStyle Lite Meter kit) As directed 4x/day cholecalciferol (vitamin D3) 50 mcg PO DAILY 30 days clopidogrel 75 mg PO DAILY cyanocobalamin (vitamin B-12) (Vitamin B-12) 1,000 mcg PO DAILY denosumab (Prolia) 60 mg subcut [id number] 30 days estradiol 0.01%(0.1mg/gram) vaginally 3 times a week; pea sized amount to urethra 3 times a week 30 days ferrous sulfate (Feosol) 325 mg PO DAILY flash glucose sensor (FreeStyle Angela 2 Sensor kit) Once every 14 days furosemide 20 mg PO DAILY hydrocortisone 2.5% 1 appl topical BID insulin aspart U-100 (Novolog FlexPen U-100 Insulin aspart) 8 units (0.08 mL) subcut QID insulin degludec (Tresiba FlexTouch U-200 insulin) 30 units (0.15 mL) subcut DAILY lancets As directed lansoprazole 30 mg PO DAILY levothyroxine 88 mcg PO DAILY 30 days metoprolol succinate ER 25 mg PO BID pen needle, diabetic (BD Denisa 2nd Gen Pen Needle) 4x daily [raised toilet seat with arms As directed] [Shower chair with arms As directed] [walker with seat and breaks As directed] Do you need a note to return to daycare/school/sports/work: Yes HPI EP fall/large lump on left buttocks HPI Details 72-year-old female presents to the [facility] for a sick visit. She is accompanied by her daughter who speaking on her behalf. Patient fell on her rear end yesterday at home. She was moving boxes when this happened. Patient is on a blood thinner. The daughter noticed some bruising over the buttocks and decided to bring her for an evaluation. Patient came walking on her own. At baseline she uses a walker. Reports no pain. 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 Mother Pancreatic cancer Social History Household Members: Family Housing: Apartment Do you presently have visiting nurse or other home services: No Alcohol intake: current Alcohol intake frequency: holidays/special occasions only Patient Tobacco Use Status: Never used Tobacco e-Cigarette/Vaping Use: Never Used Second Hand Smoke Exposure: No Advance Directives Date on File: 02/04/20 service: No Current occupational status: unemployed Cognitive needs: No Hearing needs: No Vision needs: Yes Physical Exam Vital Signs: Last Vital Signs Temp 97.8 F 01/15/23 15:04 Pulse 77 01/15/23 15:04 BP 130/80 01/15/23 15:04 Pulse Ox 99 01/15/23 15:04 Oxygen Delivery Method Room Air 01/15/23 15:04 BMI result Body Mass Index 29.0 Back/Spine/Pelvis Other: Buttocks: Minimal bruising over the left buttock. No tenderness. Gait: Baseline. Able to bear weight and walk using the walker. Assessment & Plan Assessment & Plan (1) Contusion, buttock: Code(s): S30.0XXA - Contusion of lower back and pelvis, initial encounter Plan: Self-limiting illness. Reassurance. Coding Level of Care Code Est Pt Level 3 (26980) Diagnoses Contusion, buttock S30.0XXA
== END 2023-01-15 16:05 | disposition home or self-care (01) ==
PROVIDERS: PCP Internal Medicine; Visit Provider Internal Medicine
DX: S30.0XXA Contusion of lower back and pelvis, initial encounter (principal)
CPT/HCPCS: 99213

== ENCOUNTER 2023-01-28 11:58 | Outpatient (AMB) | payer MEDICARE, MEDICAID, SELFPAY ==
[2023-01-28 12:10] VITALS: BP 118/52; PULSE 76; O2SAT 100; BMI 29.9
--- NOTE | 2023-01-28 12:10 | A.OFFPC_ITS ---
Vital Signs 3 01/28/23 12:10 Height 4 ft 10 in Weight 143 lb 4 oz BMI 29.9 BP 118/52 L Blood Pressure Location Rt brachial Position Sitting Pulse 76 Pulse Source Pulse Oximeter Pulse Oximetry (%) 100 Oxygen Delivery Method Room Air Intake Visit Reasons: Follow U/P Shoulder Pain Allergies aspirin [ASPIRIN] Allergy (Severe, Verified 01/28/23 12:11) Swelling, rash fish derived [FISH] Allergy (Mild, Verified 01/28/23 12:11) Rash, Swelling Penicillins [PENICILLINS] Allergy (Unknown, Verified 01/28/23 12:11) Swelling Medication List - Last Reconciled 01/28/23 by Kimi Patino MD acetaminophen 650 mg PO Q6H PRN ascorbate calcium (vitamin C) 500 mg PO DAILY 90 days atorvastatin 40 mg PO DAILY [Bedside commode As directed] blood sugar diagnostic (FreeStyle Lite Strips) As directed three times a day blood-glucose meter (FreeStyle Lite Meter kit) As directed 4x/day cholecalciferol (vitamin D3) 50 mcg PO DAILY 30 days clopidogrel 75 mg PO DAILY cyanocobalamin (vitamin B-12) (Vitamin B-12) 1,000 mcg PO DAILY denosumab (Prolia) 60 mg subcut [id number] 30 days ferrous sulfate (Feosol) 325 mg PO DAILY flash glucose sensor (InnoPadStyle Angela 2 Sensor kit) Once every 14 days furosemide 20 mg PO DAILY hydrocortisone 2.5% 1 appl topical BID insulin aspart U-100 (Novolog FlexPen U-100 Insulin aspart) 8 units (0.08 mL) subcut QID insulin degludec (Tresiba FlexTouch U-200 insulin) 30 units (0.15 mL) subcut DAILY lancets As directed lansoprazole 30 mg PO DAILY levothyroxine 88 mcg PO DAILY 30 days metoprolol succinate ER 25 mg PO BID pen needle, diabetic (BD Denisa 2nd Gen Pen Needle) 4x daily [raised toilet seat with arms As directed] [Shower chair with arms As directed] [walker with seat and breaks As directed] Tobacco use date assessed: 01/28/23 Fall risk assessment: 1 Fall in past year Last assessed Fall Risk: 01/28/23 Dental Screening Dental Screen Date: 01/28/23 Did you have a dental visit in the last 12 months?: No Did you have a dental problem in the last 6 months where you did not have access to dental care?: No Was dental information given to patient?: No HPI Follow U/P Shoulder Pain 2 HPI0 Details Patient is 72-year-old female with a left hemiparesis Has been having left shoulder pain for the past 3 months She has gone through physical therapy which did not help her, in fact it caused more pain. Pain is located around left shoulder all the way down to mid arm Patient is tender over rotator cuff with palpation I have placed referral to orthopedic for further evaluation [facility] Medical History Colonoscopy refused Abnormal SPEP Personal history of malignant neoplasm of uterus Subcutaneous mass T2DM (type 2 diabetes mellitus) Urinary retention with incomplete bladder emptying Osteoporosis Elevated liver enzymes Hypoglycemia Hyperparathyroidism Serum calcium elevated CKD stage 3 due to type 2 diabetes mellitus [facility] (current) 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 Mother Pancreatic cancer Social History Household Members: Family Housing: Apartment Do you presently have visiting nurse or other home services: No Alcohol intake: current Alcohol intake frequency: holidays/special occasions only Patient Tobacco Use Status: Never used Tobacco e-Cigarette/Vaping Use: Never Used Second Hand Smoke Exposure: No Advance Directives Date on File: 02/04/20 service: No Current occupational status: unemployed Cognitive needs: No Hearing needs: No Vision needs: Yes Questionnaire Thrive Questionnaire Date Thrive assessed: 09/06/20 Review of Systems Const All systems reviewed & are unremarkable except as noted in HPI and below Physical exam (Primary Care) Vital Signs: Last Vital Signs Pulse 76 01/28/23 12:10 BP 118/52 L 01/28/23 12:10 Pulse Ox 100 11/28/23 12:10 Oxygen Delivery Method Room Air 01/28/23 12:10 BMI result Body Mass Index 29.9 Tobacco/Smoking Status: Tobacco use Status Tobacco use date assessed 01/28/23 01/28/23 12:12 Patient Tobacco Use Status Never used Tobacco 01/28/23 12:12 e-Cigarette/Vaping Use Never Used 01/28/23 12:12 Thrive Assessment: Date of Thrive Assessment Date Thrive assessed 09/06/20 01/28/23 12:12 Const General: no acute distress Orientation/consciousness: patient oriented x3 Eyes General: appearance normal, both eyes and all related structures Resp Effort & Inspection: normal respiratory effort and able to speak in complete sentences Auscultation: clear to auscultation bilaterally Neuro General: patient oriented x3 Extrem Shoulder/upper arm images: 2 1. Site of pain with limited range of motion Psych Mental Status: mental status grossly normal Assessment and Plan Assessment & Plan (1) Shoulder pain, left: Code(s): M25.512 - Pain in left shoulder Qualifiers: Chronicity: chronic Qualified Code(s): M25.512 - Pain in left shoulder; G89.29 - Other chronic pain (2) Left hemiparesis: Code(s): G81.94 - Hemiplegia, unspecified affecting left nondominant side Plan Patient is 72-year-old female with a left hemiparesis Has been having left shoulder pain for the past 3 months She has gone through physical therapy which did not help her, in fact it caused more pain. Pain is located around left shoulder all the way down to mid arm Patient is tender over rotator cuff with palpation I have placed referral to orthopedic for further evaluation Orders: Referrals 2 Orthopedics Referral M25.512 - Pain in left shoulder Coding Level of Care Code Est Pt Level 3 (03606) Diagnoses Chronic left shoulder pain M25.512; G89.29 Chronicity: chronic Left hemiparesis G81.94
== END 2023-01-28 13:24 | disposition home or self-care (01) ==
PROVIDERS: PCP Internal Medicine; Visit Provider Internal Medicine
DX: M25.512 Pain in left shoulder (principal); G89.29 Other chronic pain; G81.94 Hemiplegia, unspecified affecting left nondominant side
CPT/HCPCS: 99213

== ENCOUNTER 2023-02-19 07:12 | Outpatient (REF) | payer MEDICARE, MEDICAID, SELFPAY ==
--- NOTE | ~2023-02-19 | XR_ITS ---
EXAMINATION: XR SHOULDER, LEFT CLINICAL INFORMATION: Pain. COMPARISON: None available. TECHNIQUE: AP external rotation, Grashey, scapular Y, and axillary views of the left shoulder. FINDINGS: There is bony demineralization. There is mild peripheral osteophyte formation of the glenoid. There is mild calcific change of the left rotator cuff insertion. The acromioclavicular and coracoclavicular intervals are normal. No fracture or dislocation is seen. There is no foreign body. No left pneumothorax is seen. XR/XR shoulder LT min 2V IMPRESSION: 1. There is mild osteoarthritic change of the left glenohumeral joint. 2. The left glenohumeral joint is subluxed, without christine dislocation. 3. There is mild calcific tendinitis of the left rotator cuff insertion.
== END 2023-02-19 07:13 | disposition home or self-care (01) ==
LOC: HO.HOSX 07:12
PROVIDERS: Visit Provider Orthopaedic Surgery
DX: M25.512 Pain in left shoulder (principal); G89.29 Other chronic pain; I69.959 Hemiplegia and hemiparesis following unspecified cerebrovascular disease affecting unspecified side
CPT/HCPCS: 73030; 99202

== ENCOUNTER 2023-02-19 10:04 | Outpatient (AMB) | payer MEDICARE, MEDICAID, SELFPAY ==
--- NOTE | 2023-02-19 10:16 | MHC.OFFVIS ---
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 Ongoing pain for 17 years now, hx of stroke 2006 causing hemiparesis. She did have home physical therapy which seemed to aggravate her pain. She has taken Tylenol which gives her mild relief. Patient does walk with a rolling walker. Allergies aspirin [ASPIRIN] Allergy (Severe, Verified 01/28/23 12:11) Swelling, rash fish derived [FISH] Allergy (Mild, Verified 01/28/23 12:11) Rash, Swelling Penicillins [PENICILLINS] Allergy (Unknown, Verified 01/28/23 12:11) Swelling Medication List - Last Reconciled 02/19/23 by Philip Manrique MD acetaminophen 650 mg PO Q6H PRN ascorbate calcium (vitamin C) 500 mg PO DAILY 90 days atorvastatin 40 mg PO DAILY [Bedside commode As directed] blood sugar diagnostic (FreeStyle Lite Strips) As directed three times a day blood-glucose meter (FreeStyle Lite Meter kit) As directed 4x/day cholecalciferol (vitamin D3) 50 mcg PO DAILY 30 days clopidogrel 75 mg PO DAILY cyanocobalamin (vitamin B-12) (Vitamin B-12) 1,000 mcg PO DAILY denosumab (Prolia) 60 mg subcut [id number] 30 days ferrous sulfate (Feosol) 325 mg PO DAILY flash glucose sensor (FreeStyle Angela 2 Sensor kit) Once every 14 days furosemide 20 mg PO DAILY hydrocortisone 2.5% 1 appl topical BID insulin aspart U-100 (Novolog FlexPen U-100 Insulin aspart) 8 units (0.08 mL) subcut QID insulin degludec (Tresiba FlexTouch U-200 insulin) 30 units (0.15 mL) subcut DAILY lancets As directed lansoprazole 30 mg PO DAILY levothyroxine 88 mcg PO DAILY 30 days metoprolol succinate ER 25 mg PO BID pen needle, diabetic (BD Denisa 2nd Gen Pen Needle) 4x daily [raised toilet seat with arms As directed] [Shower chair with arms As directed] [walker with seat and breaks As directed] [facility] Medical History Colonoscopy refused Abnormal SPEP Personal history of malignant neoplasm of uterus Subcutaneous mass T2DM (type 2 diabetes mellitus) Urinary retention with incomplete bladder emptying Osteoporosis Elevated liver enzymes Hypoglycemia Hyperparathyroidism Serum calcium elevated CKD stage 3 due to type 2 diabetes mellitus longterm (current) 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 Mother Pancreatic cancer Social History Household Members: Family Housing: Apartment Do you presently have visiting nurse or other home services: No Alcohol intake: current Alcohol intake frequency: holidays/special occasions only Patient Tobacco Use Status: Never used Tobacco e-Cigarette/Vaping Use: Never Used Second Hand Smoke Exposure: No Advance Directives Date on File: 02/04/20 service: No Current occupational status: unemployed Cognitive needs: No Hearing needs: No Vision needs: Yes Physical Exam Vital Signs: BMI result Body Mass Index 29.9 Extrem Other: Left shoulder examination shows decreased active and passive range of motion when compared to her right shoulder, 2/5 strength with supraspinatus testing, minimal discomfort with passive range of motion Results Reviewed Results Reviewed: X-rays of the patient's left shoulder show mild acromioclavicular joint narrowing, a type 2 acromion, no acute bony abnormalities Assessment & Plan Assessment & Plan (1) Shoulder pain, left: Code(s): M25.512 - Pain in left shoulder Qualifiers: Chronicity: chronic Qualified Code(s): M25.512 - Pain in left shoulder; G89.29 - Other chronic pain Plan Ms. Gordon presents with left shoulder pain secondary to weakness from her cerebrovascular accident. I had a lengthy discussion with the patient and the patient's daughter regarding the treatment options. Patient wishes to hold off on a cortisone injection for now. I did encourage her to continue with her range of motion exercises to prevent further stiffness. She does not wish to go back to formal physical therapy. She will continue taking Tylenol as needed for discomfort. She will follow up with me on an as-needed basis should her symptoms worsen in any way. Feel free to call me at any time should questions regarding her orthopedic management arise. Thank you very much for asking me to see this very friendly patient. I spent 20 minutes in reviewing the patient's records and imaging studies, seeing the patient and documenting in the medical record. Orders: Orders XR shoulder LT min 2V Today M25.512 - Pain in left shoulder Coding Level of Care Code Tele New Pt Level 2 (42562) Diagnoses Chronic left shoulder pain M25.512; G89.29 Chronicity: chronic
[2023-02-19 10:18] VITALS: BMI 29.9
== END 2023-02-19 10:48 | disposition home or self-care (01) ==
PROVIDERS: PCP Internal Medicine; Visit Provider Orthopaedic Surgery
DX: M25.512 Pain in left shoulder (principal); G89.29 Other chronic pain
CPT/HCPCS: 99202

== ENCOUNTER 2023-02-26 13:50 | Outpatient (AMB) | payer MEDICARE, MEDICAID, SELFPAY ==
[2023-02-26 13:54] VITALS: BP 100/58; PULSE 84; BMI 30.4
--- NOTE | 2023-02-26 13:54 | A.OFFVIS_ITS ---
Intake Vital Signs 02/26/23 13:54 Height 4 ft 10 in Weight 145 lb 8.081 oz BMI 30.4 BP 100/58 L Blood Pressure Location Rt brachial Position Sitting Pulse 84 Pulse Source Pulse Oximeter Intake Visit Reasons: DM-CONFIRMED Intake Note: Former Dr. Lombardo patient last seen on 08/05/2022, presents today to follow up on Type 2 Diabetes Mellitus. 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 Roller Assembler Required: Yes Curtain Roller Assembler Language: Adjunct Writing Instructor Name: Lisa medical staff Information Interpreted: non-clinical & clinical Accompanied by: Daughter Allergies aspirin [ASPIRIN] Allergy (Severe, Verified 02/26/23 14:10) Swelling, rash fish derived [FISH] Allergy (Mild, Verified 02/26/23 14:10) Rash, Swelling Penicillins [PENICILLINS] Allergy (Unknown, Verified 02/26/23 14:10) Swelling Medication List - Last Reconciled 02/26/23 by Sae Ferrell MD acetaminophen 650 mg PO Q6H PRN ascorbate calcium (vitamin C) 500 mg PO DAILY 90 days atorvastatin 40 mg PO DAILY [Bedside commode As directed] blood sugar diagnostic (FreeStyle Lite Strips) As directed three times a day blood-glucose meter (FreeStyle Lite Meter kit) As directed 4x/day cholecalciferol (vitamin D3) 50 mcg PO DAILY 30 days clopidogrel 75 mg PO DAILY cyanocobalamin (vitamin B-12) (Vitamin B-12) 1,000 mcg PO DAILY denosumab (Prolia) 60 mg subcut [id number] 30 days ferrous sulfate (Feosol) 325 mg PO DAILY flash glucose sensor (FreeStyle Angela 2 Sensor kit) Once every 14 days furosemide 20 mg PO DAILY hydrocortisone 2.5% 1 appl topical BID insulin aspart U-100 (Novolog FlexPen U-100 Insulin aspart) 8 units (0.08 mL) subcut QID insulin degludec (Tresiba FlexTouch U-200 insulin) 30 units (0.15 mL) subcut DAILY lancets As directed lansoprazole 30 mg PO DAILY levothyroxine 88 mcg PO DAILY 30 days metoprolol succinate ER 25 mg PO BID pen needle, diabetic (BD Denisa 2nd Gen Pen Needle) 4x daily [raised toilet seat with arms As directed] [Shower chair with arms As directed] [walker with seat and breaks As directed] HPI HPI Comments History of Present Illness Details 72 YO F with PMHx T2DM, Osteoporosis and hyperaprathyroidism who is seen in F/U for T2DM and Osteoporosis. Patient last saw Dr. Lombardo on 08/05/2022. Today's visit focus on type 2 diabetes 1) T2DM: Initially diagnosed with T2DM in 1989. Was initially started on treatment with Metformin. This was stopped due to CKD Stage III. GLP-1 contraindicated due to family history of pancreatic cancer. Took Trulicity a few yrs ago but stopped for unclear reasons Current regimen Tresiba 30 units qAM and Humalog sliding scale (ISF 25 with goal of 150). Uses CGM Airpowerede. 14 days of data downloaded from 02/13/23- This reveals an average glucose of 235, with GMI of 8.9%. She is at goal 25% of the time, above goal 75% of the time, and below goal 0% of the time. No lows since her last visit. She is running high always postprandially. With greatest increases after lunch and from 03:00 to 06:00 Treats lows with juice. Checks sugar after to ensure it is rising. Treats according to rule of 15's. Family history of T2DM in her parents. Has eyes checked yearly, last eye exam 05/15/2022, denies retinopathy. Has neuropathy, sees podiatry every 2 months. Denies nephropathy, not on VARUN/ARB due to CKD. Follows with Nephrology. UAC 115.8 06/12/2022 Has HLD, on Atorvastatin 40 mg PO daily. Last LDL 84 as measured on 11/15/2021. Denies CAD. Diet: Does not follow a low carb diet. Weight: Stable. Had diabetes education. 2) Osteoporosis and Hyperparathyroidism : 71 YO F with PMHx T2DM and Hypercalcemia who is seen in F/U for T2DM. First noted to have high calcium in 2020, but a review of records reveals her Calcium has been highly variable for a number of years. Had labs assessed by Zuleyma Rockwell 11/27/2020 with Calcium 10.0, Albumin 4.3, PTH 106 and Vitamin D 38.1. She does have CKD Stage 3. She had a DEXA 01/18/2021 which revealed Osteoporosis of the distal forearm. She opted to pursue medical management rather than surgical parathyroidectomy and began treatment with Prolia with her first dose 06/05/2021, second dose 12/12/2021. She is due for her 3rd dose now. She had an US of the neck 01/02/2021 which revealed no evidence of thyroid nodules or a parathyroid adenoma. Currently not using a Calcium supplement. Currently not using HCTZ. Kidney stones: Denies Family history of high calcium or kidney stones: Denies DEXA: 01/18/2021 FINDINGS: AP SPINE L1-L4: Current: BMD 1.170 g/cm2, Z-score 1.5, T-score -0.1, normal, 12.0% increase from previous, 11.4% increase from baseline (<5% change is not significant). Prior: BMD 1.045 g/cm2. Baseline: BMD 1.050 g/cm2. LEFT FEMUR, NECK: Current: BMD 0.983 g/cm2, Z-score 1.2, T-score -0.4, normal. Prior: BMD 1.016 g/cm2. Baseline: BMD 1.066 g/cm2. LEFT FEMUR, TOTAL: Current: BMD 1.160 g/cm2, Z-score 2.5, T-score 1.2, normal, 0.0% no change from previous, 1.0% decrease from baseline (<5% change is not significant). Prior: BMD 1.160 g/cm2. Baseline: BMD 1.172 g/cm2. LEFT FOREARM RADIUS 33%: BMD 0.623 g/cm2, Z-score -1.2, T-score -2.9, osteoporosis. Prior:? Not previously measured. Labs: Laboratory Tests 06/12/22 06/12/22 06/12/22 14:30 14:40 14:40 Creatinine 1.56 H Estimated GFR 33 Hemoglobin A1c % 9.0 25-OH Vitamin D To dexter 33.3 TSH 0.31 L Free T4 1.26 PTH Intact Calcium (PTH Intac t) Microalb/Creat Rat io 115.8 06/12/22 14:40 Creatinine Estimated GFR Hemoglobin A1c % 25-OH Vitamin D To dexter TSH Free T4 PTH Intact 76 Calcium (PTH Intac t) 9.9 Microalb/Creat Rat io PFS Medical History Colonoscopy refused Abnormal SPEP Personal history of malignant neoplasm of uterus Subcutaneous mass T2DM (type 2 diabetes mellitus) Urinary retention with incomplete bladder emptying Osteoporosis Elevated liver enzymes Hypoglycemia Hyperparathyroidism Serum calcium elevated CKD stage 3 due to type 2 diabetes mellitus 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 Mother Pancreatic cancer Social History Household Members: Family Housing: Apartment Do you presently have visiting nurse or other home services: No Alcohol intake: current Alcohol intake frequency: holidays/special occasions only Patient Tobacco Use Status: Never used Tobacco e-Cigarette/Vaping Use: Never Used Second Hand Smoke Exposure: No Advance Directives Date on File: 02/04/20 service: No Current occupational status: unemployed Cognitive needs: No Hearing needs: No Vision needs: Yes Physical Exam Absence of Cushingoid features. Absence of acromegalic features. Neck exam reveals nl size thyroid about 15 gms. No thyroid nodules palpable. No carotid bruits present. Lungs CTA. Heart S1 S2, Reg R/R. No M/R/ G. Skin exam reveals absence of vitiligo or acanthosis nigricans. Abdominal exam reveals Soft NT/ND with NA BS. No organomegaly present. Neck Other: . Extrem Other: Visual exam of foot performed. No ulcerations or open lesions. No onchomycosis, no callouses.Pulses 2 + distally Sensation intact to monofilament exam. Vibratory sensation sensed is intact with 128 Hz tuning fork Results AMB Hemoglobin A1c AMB Hemoglobin A1c 8.3 % Last Edit by Maddie Moore on 02/26/23 14:14 Assessment & Plan Assessment & Plan (1) Diabetes type 2, uncontrolled: Code(s): E11.65 - Type 2 diabetes mellitus with hyperglycemia Qualifiers: Glycemic state: with hyperglycemia Qualified Code(s): E11.65 - Type 2 diabetes mellitus with hyperglycemia Plan: This 72-year-old female with a history of type 2 diabetes being treated with basal-bolus insulin with poor glycemic with known microvascular complications namely CKD stage 3 and neuropathy. She also has fatty liver disease . Family history of pancreatic cancer does not absolutely contraindicated the use of a G LP 1 The plan is to talk to the patient about potentially starting a GLP-1 like Trulicity or Ozempic. This would have the additional benefit of glycemic control and treating fatty liver. Will have patient see wellness educator and etcher apprentice. Patient and daughter like to go home and discuss initiation of this medication will make a decision as to whether to proceed once the meet with the wellness educator Orders: Orders AMB Hemoglobin A1c Today E11.9 - Type 2 diabetes mellitus without complications Referrals Diabetes Education Referral E11.65 - Type 2 diabetes mellitus with hyperglycemia Nutrition/Dietitian Referral E11.65 - Type 2 diabetes mellitus with hyperglycemia Medications: Refilled levothyroxine 88 mcg PO DAILY 30 days 30 tabs 1RF E03.9 - Hypothyroidism, unspecified Coding Level of Care Code Est Pt Level 4 (82662) Diagnoses Uncontrolled type 2 diabetes mellitus with hyperglycemia E11.65 Glycemic state: with hyperglycemia
[2023-02-26 14:09] LABS: Glucose, Whole Blood 239 mg/dL (60-115)
== END 2023-02-26 14:40 | disposition home or self-care (01) ==
PROVIDERS: PCP Internal Medicine; Visit Provider Internal Medicine Endocrinology, Diabetes & Metabolism
DX: E11.65 Type 2 diabetes mellitus with hyperglycemia (principal); E11.9 Type 2 diabetes mellitus without complications
CPT/HCPCS: 99214

== ENCOUNTER → 2023-02-26 13:50 | Outpatient (BNVA) | payer MEDICARE, MEDICAID, SELFPAY | PROVIDERS: PCP Internal Medicine; Visit Provider Internal Medicine Endocrinology, Diabetes & Metabolism | DX: E11.65 Type 2 diabetes mellitus with hyperglycemia (principal); Z79.4 Long term (current) 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 | CPT/HCPCS: 82947; 83036; 99212 ==

== ENCOUNTER 2023-03-05 11:22 | Outpatient (AMB) | payer MEDICARE, MEDICAID, SELFPAY ==
--- NOTE | 2023-03-05 11:49 | MHC.OFFVIS ---
Intake Intake Visit Reasons: 3m/PVR Intake Note: Patient is present for follow up recurrent uti Urology Medications: vitamin c Blood Thinner: clopidogrel PVR: 143ml's Home Insurance Agent Required: Yes Accompanied by: Daughter Allergies aspirin [ASPIRIN] Allergy (Severe, Verified 03/05/23 13:13) Swelling, rash fish derived [FISH] Allergy (Mild, Verified 03/05/23 13:13) Rash, Swelling Penicillins [PENICILLINS] Allergy (Unknown, Verified 03/05/23 13:13) Swelling Medication List - Last Reconciled 03/05/23 by BRANDON Daniel acetaminophen 650 mg PO Q6H PRN ascorbate calcium (vitamin C) 500 mg PO DAILY 90 days atorvastatin 40 mg PO DAILY [Bedside commode As directed] blood sugar diagnostic (FreeStyle Lite Strips) As directed three times a day blood-glucose meter (FreeStyle Lite Meter kit) As directed 4x/day cholecalciferol (vitamin D3) 50 mcg PO DAILY 30 days clopidogrel 75 mg PO DAILY cyanocobalamin (vitamin B-12) (Vitamin B-12) 1,000 mcg PO DAILY denosumab (Prolia) 60 mg subcut [id number] 30 days ferrous sulfate (Feosol) 325 mg PO DAILY flash glucose sensor (FreeStyle Angela 2 Sensor kit) Once every 14 days furosemide 20 mg PO DAILY hydrocortisone 2.5% 1 appl topical BID insulin aspart U-100 (Novolog FlexPen U-100 Insulin aspart) 8 units (0.08 mL) subcut QID insulin degludec (Tresiba FlexTouch U-200 insulin) 30 units (0.15 mL) subcut DAILY lancets As directed lansoprazole 30 mg PO DAILY levothyroxine 88 mcg PO DAILY 30 days metoprolol succinate ER 25 mg PO BID pen needle, diabetic (BD Denisa 2nd Gen Pen Needle) 4x daily [raised toilet seat with arms As directed] [Shower chair with arms As directed] [walker with seat and breaks As directed] HPI HPI Comments History of Present Illness Details Jacqueline is a pleasant 72 year old Upper Sorbian speaking patient who is accompanied by her daughter Kristy at todays visit who is a patient of Dr. Patino. She has a past medical history of bacteremia, CKD stage 3, CVA with left-sided weakness, DM Type II, diabetic neuropathy, elevated liver enzymes, hypertension, hyperlipidemia, iron deficiency anemia, osteoporosis, and vitamin-D deficiency. She presents to the office today for a follow up. Of note, patient status post cystoscopy, cystogram, and urethral dilation with Dr. Mcintyre on 11/12/22 for her recurrent urinary tract infections, bilateral hydronephrosis, and neurogenic bladder. Postop diagnosis noted vesicoureteral reflux bilateral grade 4 and urethral narrowing. The bladder wall appeared fibrinous with mild erythema. There were no suspicious bladder lesions seen. When contrast was mixed and placed under gravitiy there was noted to be bilateral reflux into both ureters up into the kidneys, noting significant dilation of the ureters and renal pelves. After draining the contrast there was drainage and decompression of bilateral ureters noted. In office urinalysis results reviewed with the patient today. 3+ leukocytes negative nitrates microscopic hematuria noted. PVR 143mL. Daughter continues to perform CIC 2 times per day morning and night. However, she does discuss patient being more reluctant to catheterization and over the last 2 weeks at times has only been performing catheterization once per day or not at all. Discussed at length importance of increasing CIC versus suprapubic tube placement for incomplete bladder emptying. Patient with recurrent urinary tract infections, incomplete bladder emptying, in the setting of neurogenic bladder. Discussed at length affects of incomplete bladder emptying and recurrent urinary tract infections. Discussed at length treatment options with risks and benefits of increase in CIC verses suprapubic tube placement verses surveillance monitoring. At this time patient and patient's daughter wish to continue to think about treatment plan. Discussed and stressed the importance of completely emptying bladder as well as affects of incomplete bladder emptying. When asked she currently denies urinary urgency, urinary frequency, nocturia, hematuria, dysuria, changes to urinary stream, flank pain, fever, and or chills. She does report urinary incontinence. Recent BUN and creatinine results reviewed with the daughter today. Discussed sending urine for urine culture and will reassess suprapubic tube placement in 1 month. BUN: 11/23--45, 11/23--44, 06/23--35, 04/25--36, 04/02--33, 03/25--26, 01/22--34, 11/22--31, 05/22--39, 05/22--40, 03/26--37 Creatinine: 11/23--1.30, 11/23--1.35, 06/23--1.56, 04/25--1.41, 03/25--1.49, 03/25--1.35, 01/22--1.72, 01/22--1.58, 11/22--1.39, 05/22--1.82, 05/22--1.97, 03/26--1.40 [facility] Medical History Colonoscopy refused Abnormal SPEP Personal history of malignant neoplasm of uterus Subcutaneous mass T2DM (type 2 diabetes mellitus) Urinary retention with incomplete bladder emptying Osteoporosis Elevated liver enzymes Hypoglycemia Hyperparathyroidism Serum calcium elevated CKD stage 3 due to type 2 diabetes mellitus 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 Mother Pancreatic cancer Social History Household Members: Family Housing: Apartment Do you presently have visiting nurse or other home services: No Alcohol intake: current Alcohol intake frequency: holidays/special occasions only Patient Tobacco Use Status: Never used Tobacco e-Cigarette/Vaping Use: Never Used Second Hand Smoke Exposure: No Advance Directives Date on File: 02/04/20 service: No Current occupational status: unemployed Cognitive needs: No Hearing needs: No Vision needs: Yes Office Procedures Post Void Residual Post Residual Void Post Void Residual (PVR): 143 [id number] Void Residual by ultrasound Results AMB Urinalysis, Automated UA Leukoctes 500 Antony/uL Last Edit by Radha Prince on 03/05/23 12:34 UA Nitrite Negative Last Edit by Radha Prince on 03/05/23 12:34 UA Urobilinogen 0.2 mg/dL Last Edit by Radha Hallfernanda on 03/05/23 12:34 UA Protein 0 mg/dL Last Edit by Zebmelody Isabelfernanda on 03/05/23 12:34 UA pH 6.0 Last Edit by Zebmelody Isabelfernanda on 03/05/23 12:34 UA Blood 25 Ian/uL Last Edit by Radha Prince on 03/05/23 12:34 UA Specific [place] 1.010 Last Edit by Zebmelody Isabelfernanda on 03/05/23 12:34 UA Ketone Negative Last Edit by Radha Isabelfernanda on 03/05/23 12:34 UA Bilirubin 0 mg/dL Last Edit by Radha Isabelfernanda on 03/05/23 12:34 UA Glucose 0 mg/dL Last Edit by Radha Prince on 03/05/23 12:34 Results Reviewed Results Reviewed: Laboratory Last Values Urine pH (Auto) 6.0 03/05/23 11:52 Specific [place] (Auto) 1.010 03/05/23 11:52 Urine Protein (Auto) 0 mg/dL 03/05/23 11:52 Glucose (UA)(Auto) 0 mg/dL 03/05/23 11:52 Urine Ketones (Auto) Negative 03/05/23 11:52 Urine Blood (Auto) 25 Ian/uL 03/05/23 11:52 Urine Nitrite (Auto) Negative 03/05/23 11:52 Urine Bilirubin (Auto) 0 mg/dL 03/05/23 11:52 Urine Urobilinogen (Auto) 0.2 mg/dL 03/05/23 11:52 Leukocyte Esterase (Auto) 500 Antony/uL 03/05/23 11:52 Assessment & Plan Assessment & Plan (1) Neurogenic bladder: Code(s): N31.9 - Neuromuscular dysfunction of bladder, unspecified (2) Hydronephrosis: Code(s): N13.30 - Unspecified hydronephrosis (3) Cloudy urine: Code(s): R82.90 - Unspecified abnormal findings in urine (4) Urinary retention with incomplete bladder emptying: Code(s): R33.9 - Retention of urine, unspecified (5) Recurrent UTI: Code(s): N39.0 - Urinary tract infection, site not specified (6) Reflux, vesicoureteral: Code(s): N13.70 - Vesicoureteral-reflux, unspecified Plan In office urinalysis results reviewed with the patient today; will send for urine culture; will await culture results for treatment PVR 143 mL. Discussed at length further treatment options with increase in CIC verses suprapubic tube versus surveillance monitoring; discussed at length risks and benefits of these asforementioned interventions at length. BUN and creatinine results reviewed with the patient and daughter today. Discussed at length affects of incomplete bladder emptying on kidneys and reviewed BUN and Creatinine results over the last year (trends). Discussed importance of compliance with Estrace cream daily Follow-up in 1 month with PVR and labs to be completed prior; or sooner with any issues, concerns, and or questions Orders: Orders AMB Urinalysis Automated Today Z13.9 - Encounter for screening, unspecified AMB Post Void Residual by ultrasound Today N39.0 - Urinary tract infection, site not specified Urine Culture Today N39.0 - Urinary tract infection, site not specified Patient Instructions: The patient had an opportunity to ask questions regarding the treatment plan. All questions were answered. Physical exam, labs, and imaging were discussed and reviewed in detail. As well as risks, benefits, and discussion of treatment choices. No major barriers to understanding were identified. The patient expressed understanding and agreement with the above treatment plan. The patient was made aware they should contact our office by phone for worsening of their current condition, the appearance of new symptoms, or with any questions or concerns. Compliance is encouraged with any medications and follow up testing that is ordered. It is a privilege to be allowed the opportunity to participate in? your urological care.? Again, if you have any questions or concerns If you have any questions or concerns please do not hesitate to contact me. The office is [phone]. This note is constructed using voice recognition software. While every effort has been made to ensure accuracy director of manufacturing operations errors may have been included. Yours sincerely, BRANDON Daniel Coding Level of Care Code Est Pt Level 4 (15710) Diagnoses Neurogenic bladder N31.9 Hydronephrosis N13.30 Cloudy urine R82.90 Urinary retention with incomplete bladder emptying R33.9 Recurrent UTI N39.0 Reflux, vesicoureteral N13.70 CPT Codes Post Residual Void - PVR CPT Code: 18664-Wpxi Void Residual by ultrasound ([id number])
== END 2023-03-05 13:15 | disposition home or self-care (01) ==
PROVIDERS: PCP Internal Medicine; Visit Provider Nurse Practitioner Family
DX: N31.9 Neuromuscular dysfunction of bladder, unspecified (principal); N13.30 Unspecified hydronephrosis; R82.90 Unspecified abnormal findings in urine; R33.9 Retention of urine, unspecified; N39.0 Urinary tract infection, site not specified; N13.70 Vesicoureteral-reflux, unspecified
CPT/HCPCS: 99214

== ENCOUNTER 2023-03-05 11:22 | Outpatient (REF) | payer MEDICARE, MEDICAID, SELFPAY | END 2023-03-05 11:23 | disposition home or self-care (01) | LOC: HO.LAB 11:22 | PROVIDERS: PCP Internal Medicine; Visit Provider Nurse Practitioner Family | DX: N39.0 Urinary tract infection, site not specified (principal); N31.9 Neuromuscular dysfunction of bladder, unspecified; N13.30 Unspecified hydronephrosis; R33.9 Retention of urine, unspecified; N13.70 Vesicoureteral-reflux, unspecified; Z79.899 Other long term (current) drug therapy | CPT/HCPCS: 36415; 51798; 81003; 82565; 84439; 84443; 84520; 87086; 87088; 87186; 99212 ==

== ENCOUNTER 2023-03-05 16:00 | Outpatient (REF) | payer MEDICARE, MEDICAID, SELFPAY | END 2023-03-05 16:01 | disposition home or self-care (01) | LOC: HO.LNP 16:00 | PROVIDERS: Visit Provider Nurse Practitioner Family | DX: Z13.89 Encounter for screening for other disorder (principal) ==

== ENCOUNTER 2023-03-27 13:57 | Outpatient (REF) | payer MEDICARE, MEDICAID, SELFPAY | END 2023-03-27 13:58 | disposition home or self-care (01) | LOC: HO.MAMMO 13:57 | PROVIDERS: PCP Internal Medicine; Visit Provider Internal Medicine | DX: Z12.31 Encounter for screening mammogram for malignant neoplasm of breast (principal) | CPT/HCPCS: 77063; 77067 ==

== ENCOUNTER → 2023-03-27 14:30 | Outpatient (BNV) | payer MEDICARE, MEDICAID, SELFPAY | PROVIDERS: PCP Internal Medicine; Visit Provider Radiology Diagnostic Radiology | DX: Z12.31 Encounter for screening mammogram for malignant neoplasm of breast (principal) | CPT/HCPCS: 77063; 77067 ==

== ENCOUNTER 2023-03-28 12:58 | Outpatient (AMB) | payer MEDICARE, MEDICAID, SELFPAY ==
--- NOTE | 2023-03-28 13:12 | MHC.OFFWIV ---
Intake Vital Signs 03/28/23 13:13 Height 4 ft 10 in Weight 148 lb BMI 30.9 BP 126/70 Blood Pressure Location Lt brachial Position Sitting Pulse 77 Temp 97.7 F Temp Source Temporal Artery Scan Pulse Oximetry (%) 99 Oxygen Delivery Method Room Air Intake Visit Reasons: EP lft ear blocked/pain Intake Note: pt is here today for lft ear blocked started 1 week ago Patient Tobacco Use Status: Never used Tobacco Allergies aspirin [ASPIRIN] Allergy (Severe, Verified 03/28/23 13:20) Swelling, rash fish derived [FISH] Allergy (Mild, Verified 03/28/23 13:20) Rash, Swelling Penicillins [PENICILLINS] Allergy (Unknown, Verified 03/28/23 13:20) Swelling Do you need a note to return to daycare/school/sports/work: No HPI HPI Comments History of Present Illness Details This is a 72-year-old female who presented to the walk-in clinic complaining of left ear pain/discomfort for the past several days. She denies any nasal congestion, rhinorrhea, fever/chills. She reports muffled/blocked hearing. She is otherwise feeling well. [facility] Medical History Colonoscopy refused Abnormal SPEP Personal history of malignant neoplasm of uterus Subcutaneous mass T2DM (type 2 diabetes mellitus) Urinary retention with incomplete bladder emptying Osteoporosis Elevated liver enzymes Hypoglycemia Hyperparathyroidism Serum calcium elevated CKD stage 3 due to type 2 diabetes mellitus detention (current) 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 Mother Pancreatic cancer Social History Household Members: Family Housing: Apartment Do you presently have visiting nurse or other home services: No Alcohol intake: current Alcohol intake frequency: holidays/special occasions only Patient Tobacco Use Status: Never used Tobacco e-Cigarette/Vaping Use: Never Used Second Hand Smoke Exposure: No Advance Directives Date on File: 02/04/20 service: No Current occupational status: unemployed Cognitive needs: No Hearing needs: No Vision needs: Yes Review of Systems Const All systems reviewed & are unremarkable except as noted in HPI and below Reports no additional complaints Eyes Reports no additional complaints ENT Reports no additional complaints Card Reports no additional complaints Resp Reports no additional complaints GI Reports no additional complaints Reports no additional complaints Musc Reports no additional complaints Skin/Breast Reports system reviewed and no additional complaints, except as documented Neuro Reports no additional complaints Psych Reports no additional complaints Endo Reports no additional complaints Stewart/Lymph Reports no additional complaints Aller/Immun Reports no additional complaints Physical Exam Vital Signs: Last Vital Signs Temp 97.7 F 03/28/23 13:13 Pulse 77 03/28/23 13:13 BP 126/70 03/28/23 13:13 Pulse Ox 99 03/28/23 13:13 Oxygen Delivery Method Room Air 03/28/23 13:13 BMI result Body Mass Index 30.9 Const Other: Vital signs reviewed. Constitutional: Non-toxic appearing. No acute distress. Well-developed and well-nourished. HEENT: Normocephalic and atraumatic. The left external auditory canal is erythematous and edematous in the tympanic membrane is unable to be visualized. Skin: Warm and dry. No rashes or lesions noted. Neck: Full and painless range of motion. No cervical lymphadenopathy. Cardio: Regular rate. No lower extremity edema. No JVD. Pulmonary: No respiratory distress. No accessory muscle usage. Clear to auscultation bilaterally without wheezing, crackles, or rhonchi. Gastrointestinal: Soft, nontender, and nondistended in all 4 quadrants. Musculoskeletal: Normal range of motion in joints throughout the body. No deformity or other signs of injury. Neuro: Alert and oriented x4. Cranial nerves 2-12 grossly intact. No focal deficits appreciated. Psych: Normal mood and affect. Assessment & Plan Assessment & Plan (1) Otitis externa: Code(s): H60.90 - Unspecified otitis externa, unspecified ear Qualifiers: Otitis externa type: other infective Chronicity: acute Laterality: left Qualified Code(s): H60.392 - Other infective otitis externa, left ear Plan: This is a 72-year-old female who is presenting to the walk-in clinic any ear discomfort and muffled hearing. On physical examination, there does not appear to be any cerumen impaction but her external auditory canal was erythematous and edematous and her tympanic membrane is unable to be visualized. Patient was sent home on neomycin/polymyxin/hydrocortisone ear drops 3 times daily x 10 days to treat acute otitis externa. Patient was advised to follow-up here for persistent or worsening symptoms. Patient's daughter was also present at bedside and acted as an flight engineer helicopter and the patient's daughter verbalized her understanding as well. Medications: New izcnpgpu-[id number]-AI 3.5-10,000-1 mg/mL-unit/mL-% 4 drps otic (ear) left Q8H 10 days 10 mL 0RF Coding Level of Care Code Est Pt Level 3 (18031) Diagnoses Other infective acute otitis externa of left ear H60.392 Otitis externa type: other infective Chronicity: acute Laterality: left
[2023-03-28 13:13] VITALS: BP 126/70; PULSE 77; TEMP 36.5; O2SAT 99; BMI 30.9
== END 2023-03-28 13:53 | disposition home or self-care (01) ==
PROVIDERS: PCP Internal Medicine; Visit Provider Physician Assistant Medical
DX: H60.392 Other infective otitis externa, left ear (principal)
CPT/HCPCS: 99213

== ENCOUNTER 2023-04-04 14:53 | Outpatient (AMB) | payer MEDICARE, MEDICAID, SELFPAY ==
[2023-04-04 14:55] VITALS: BP 120/68; PULSE 91; O2SAT 100; BMI 30.9
--- NOTE | 2023-04-04 14:55 | A.OFFPC_ITS ---
Vital Signs 04/04/23 14:55 Height 4 ft 10 in Weight 148 lb BMI 30.9 BP 120/68 Blood Pressure Location Rt brachial Position Sitting Pulse 91 Pulse Source Pulse Oximeter Pulse Oximetry (%) 100 Oxygen Delivery Method Room Air Intake Visit Reasons: 3 Month F/U~ Allergies aspirin [ASPIRIN] Allergy (Severe, Verified 04/04/23 14:55) Swelling, rash fish derived [FISH] Allergy (Mild, Verified 04/04/23 14:55) Rash, Swelling Penicillins [PENICILLINS] Allergy (Unknown, Verified 04/04/23 14:55) Swelling Medication List - Last Reconciled 04/04/23 by Kimi Patino MD acetaminophen 650 mg PO Q6H PRN ascorbate calcium (vitamin C) 500 mg PO DAILY 90 days atorvastatin 40 mg PO DAILY [Bedside commode As directed] blood sugar diagnostic (FreeStyle Lite Strips) As directed three times a day blood-glucose meter (FreeStyle Lite Meter kit) As directed 4x/day cholecalciferol (vitamin D3) 50 mcg PO DAILY 30 days clopidogrel 75 mg PO DAILY cyanocobalamin (vitamin B-12) (Vitamin B-12) 1,000 mcg PO DAILY denosumab (Prolia) 60 mg subcut [id number] 30 days ferrous sulfate (Feosol) 325 mg PO DAILY flash glucose sensor (FreeStyle Angela 2 Sensor kit) Once every 14 days furosemide 20 mg PO DAILY insulin aspart U-100 8 units (0.08 mL) subcut QID insulin degludec (Tresiba FlexTouch U-200 insulin) 30 units (0.15 mL) subcut DAILY lancets As directed lansoprazole 30 mg PO DAILY levothyroxine 88 mcg PO DAILY 30 days metoprolol succinate ER 25 mg PO BID ybspktkl-mlsfxwulo-CJ 3.5-10,000-1 mg/mL-unit/mL-% 4 drps otic (ear) left Q8H 10 days pen needle, diabetic (BD Denisa 2nd Gen Pen Needle) 4x daily [raised toilet seat with arms As directed] [Shower chair with arms As directed] [walker with seat and breaks As directed] Tobacco use date assessed: 04/04/23 Fall risk assessment: No Falls in past year Last assessed Fall Risk: 04/04/23 Dental Screening Dental Screen Date: 04/04/23 Did you have a dental visit in the last 12 months?: No Did you have a dental problem in the last 6 months where you did not have access to dental care?: No Was dental information given to patient?: No HPI 3 Month F/U~ HPI Details Patient is 72-year-old female who came in today to have a refill on cholesterol medication I see that she has not had liver enzymes checked in a while Lab order placed, patient has appointment with Nephrology coming up Patient's daughter is here with her she will have the liver enzymes checked at Nephrology office as well Lab order printed and handed to patient [facility] Medical History Colonoscopy refused Abnormal SPEP Personal history of malignant neoplasm of uterus Subcutaneous mass T2DM (type 2 diabetes mellitus) Urinary retention with incomplete bladder emptying Osteoporosis Elevated liver enzymes Hypoglycemia Hyperparathyroidism Serum calcium elevated CKD stage 3 due to type 2 diabetes mellitus 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 Mother Pancreatic cancer Social History Household Members: Family Housing: Apartment Do you presently have visiting nurse or other home services: No Alcohol intake: current Alcohol intake frequency: holidays/special occasions only Patient Tobacco Use Status: Never used Tobacco e-Cigarette/Vaping Use: Never Used Second Hand Smoke Exposure: No Advance Directives Date on File: 02/04/20 service: No Current occupational status: unemployed Cognitive needs: No Hearing needs: No Vision needs: Yes Questionnaire Thrive Questionnaire Date Thrive assessed: 09/06/20 Review of Systems Const All systems reviewed & are unremarkable except as noted in HPI and below Physical exam (Primary Care) Vital Signs: Last Vital Signs Pulse 91 04/04/23 14:55 BP 120/68 04/04/23 14:55 Pulse Ox 100 04/04/23 14:55 Oxygen Delivery Method Room Air 04/04/23 14:55 BMI result Body Mass Index 30.9 Tobacco/Smoking Status: Tobacco use Status Tobacco use date assessed 04/04/23 04/04/23 15:03 Patient Tobacco Use Status Never used Tobacco 04/04/23 15:03 e-Cigarette/Vaping Use Never Used 04/04/23 15:03 Thrive Assessment: Date of Thrive Assessment Date Thrive assessed 09/06/20 04/04/23 15:03 Const General: no acute distress Orientation/consciousness: patient oriented x3 Eyes General: appearance normal, both eyes and all related structures Resp Effort & Inspection: normal respiratory effort and able to speak in complete sentences Auscultation: clear to auscultation bilaterally Neuro General: patient oriented x3 Psych Mental Status: mental status grossly normal Assessment and Plan Assessment & Plan (1) Lipid disorder: Code(s): E78.9 - Disorder of lipoprotein metabolism, unspecified (2) Diabetes type 2, uncontrolled: Code(s): E11.65 - Type 2 diabetes mellitus with hyperglycemia Qualifiers: Glycemic state: with hyperglycemia Qualified Code(s): E11.65 - Type 2 diabetes mellitus with hyperglycemia (3) Vitamin D deficiency: Code(s): E55.9 - Vitamin D deficiency, unspecified (4) HTN (hypertension): Code(s): I10 - Essential (primary) hypertension Qualifiers: Hypertension type: primary hypertension Qualified Code(s): I10 - Essential (primary) hypertension (5) Diabetic neuropathy: Code(s): E11.40 - Type 2 diabetes mellitus with diabetic neuropathy, unspecified Qualifiers: Diabetes mellitus complication detail: diabetic polyneuropathy Diabetes mellitus type: type 2 Qualified Code(s): E11.42 - Type 2 diabetes mellitus with diabetic polyneuropathy (6) CKD stage 3 due to type 2 diabetes mellitus: Code(s): E11.22 - Type 2 diabetes mellitus with diabetic chronic kidney disease; N18.30 - Chronic kidney disease, stage 3 unspecified (7) CVA (cerebral vascular accident): Comment: 2004 with left sided weakness Code(s): I63.9 - Cerebral infarction, unspecified Qualifiers: CVA mechanism: unspecified Qualified Code(s): I63.9 - Cerebral infarction, unspecified (8) Hyperparathyroidism: Code(s): E21.3 - Hyperparathyroidism, unspecified (9) LFT elevation: Code(s): R79.89 - Other specified abnormal findings of blood chemistry (10) Left hemiparesis: Code(s): G81.94 - Hemiplegia, unspecified affecting left nondominant side Plan Patient is 72-year-old female who came in today to have a refill on cholesterol medication With a history of diabetes mellitus, vitamin-D deficiency hypertension, diabetic neuropathy chronic kidney disease, history of cerebrovascular accident hyperparathyroidism, left hemiparesis, chronic shoulder pain, I see that she has not had liver enzymes checked in a while Lab order placed, patient has appointment with Nephrology coming up Patient's daughter is here with her she will have the liver enzymes checked at Nephrology office as well Lab order printed and handed to patient Orders: Orders Comprehensive Met. Panel Today E11.22 - Type 2 diabetes mellitus with diabetic chronic kidney disease, E11.40 - Type 2 diabetes mellitus with diabetic neuropathy, unspecified, E11.65 - Type 2 diabetes mellitus with hyperglycemia, E21.3 - Hyperparathyroidism, unspecified, E55.9 - Vitamin D deficiency, unspecified, G81.94 - Hemiplegia, unspecified affecting left nondominant side, I10 - Essential (primary) hypertension, I63.9 - Cerebral infarction, unspecified, N18.30 - Chronic kidney disease, stage 3 unspecified, R79.89 - Other specified abnormal findings of blood chemistry LDL Cholesterol Direct Today E11.22 - Type 2 diabetes mellitus with diabetic chronic kidney disease, E11.40 - Type 2 diabetes mellitus with diabetic neuropathy, unspecified, E11.65 - Type 2 diabetes mellitus with hyperglycemia, E21.3 - Hyperparathyroidism, unspecified, E55.9 - Vitamin D deficiency, unspecified, G81.94 - Hemiplegia, unspecified affecting left nondominant side, I10 - Essential (primary) hypertension, I63.9 - Cerebral infarction, unspecified, N18.30 - Chronic kidney disease, stage 3 unspecified, R79.89 - Other specified abnormal findings of blood chemistry Vitamin B12 Today E11.22 - Type 2 diabetes mellitus with diabetic chronic kidney disease, E11.40 - Type 2 diabetes mellitus with diabetic neuropathy, unspecified, E11.65 - Type 2 diabetes mellitus with hyperglycemia, E21.3 - Hyperparathyroidism, unspecified, E55.9 - Vitamin D deficiency, unspecified, G81.94 - Hemiplegia, unspecified affecting left nondominant side, I10 - Essential (primary) hypertension, I63.9 - Cerebral infarction, unspecified, N18.30 - Chronic kidney disease, stage 3 unspecified, R79.89 - Other specified abnormal findings of blood chemistry Vitamin D 25-OH (D2 and D3) Today E11.22 - Type 2 diabetes mellitus with diabetic chronic kidney disease, E11.40 - Type 2 diabetes mellitus with diabetic neuropathy, unspecified, E11.65 - Type 2 diabetes mellitus with hyperglycemia, E21.3 - Hyperparathyroidism, unspecified, E55.9 - Vitamin D deficiency, unspecified, G81.94 - Hemiplegia, unspecified affecting left nondominant side, I10 - Essential (primary) hypertension, I63.9 - Cerebral infarction, unspecified, N18.30 - Chronic kidney disease, stage 3 unspecified, R79.89 - Other specified abnormal findings of blood chemistry Complete Blood Count Auto Diff Today E11.22 - Type 2 diabetes mellitus with diabetic chronic kidney disease, E11.40 - Type 2 diabetes mellitus with diabetic neuropathy, unspecified, E11.65 - Type 2 diabetes mellitus with hyperglycemia, E21.3 - Hyperparathyroidism, unspecified, E55.9 - Vitamin D deficiency, unspecified, G81.94 - Hemiplegia, unspecified affecting left nondominant side, I10 - Essential (primary) hypertension, I63.9 - Cerebral infarction, unspecified, N18.30 - Chronic kidney disease, stage 3 unspecified, R79.89 - Other specified abnormal findings of blood chemistry Ferritin Today E11.22 - Type 2 diabetes mellitus with diabetic chronic kidney disease, E11.40 - Type 2 diabetes mellitus with diabetic neuropathy, unspecified, E11.65 - Type 2 diabetes mellitus with hyperglycemia, E21.3 - Hype rparathyroidism, unspecified, E55.9 - Vitamin D deficiency, unspecified, G81.94 - Hemiplegia, unspecified affecting left nondominant side, I10 - Essential (primary) hypertension, I63.9 - Cerebral infarction, unspecified, N18.30 - Chronic kidney disease, stage 3 unspecified, R79.89 - Other specified abnormal findings of blood chemistry Medications: Refilled atorvastatin 40 mg PO DAILY 90 tabs 3RF Coding Level of Care Code Est Pt Level 3 (68389) Diagnoses Lipid disorder E78.9 Uncontrolled type 2 diabetes mellitus with hyperglycemia E11.65 Glycemic state: with hyperglycemia Vitamin D deficiency E55.9 Primary hypertension I10 Hypertension type: primary hypertension Diabetic polyneuropathy associated with type 2 diabetes mellitus E11.42 Diabetes mellitus complication detail: diabetic polyneuropathy Diabetes mellitus type: type 2 CKD stage 3 due to type 2 diabetes mellitus E11.22; N18.30 Cerebrovascular accident (CVA), unspecified mechanism I63.9 CVA mechanism: unspecified Hyperparathyroidism E21.3 LFT elevation R79.89 Left hemiparesis G81.94
== END 2023-04-04 16:22 | disposition home or self-care (01) ==
PROVIDERS: PCP Internal Medicine; Visit Provider Internal Medicine
DX: E11.22 Type 2 diabetes mellitus with diabetic chronic kidney disease (principal); N18.30 Chronic kidney disease, stage 3 unspecified; E21.3 Hyperparathyroidism, unspecified; E11.42 Type 2 diabetes mellitus with diabetic polyneuropathy; E11.65 Type 2 diabetes mellitus with hyperglycemia; I63.9 Cerebral infarction, unspecified; G81.94 Hemiplegia, unspecified affecting left nondominant side; E78.9 Disorder of lipoprotein metabolism, unspecified; E55.9 Vitamin D deficiency, unspecified; I10 Essential (primary) hypertension; R79.89 Other specified abnormal findings of blood chemistry
CPT/HCPCS: 99213

== ENCOUNTER 2023-06-24 12:59 | Outpatient (AMB) | payer MEDICARE, MEDICAID, SELFPAY ==
--- NOTE | 2023-06-24 13:14 | A.OFFVIS_ITS ---
Vital Signs 06/24/23 13:18 Height 4 ft 10 in Weight 145 lb 15.136 oz BMI 30.5 BP 100/64 Blood Pressure Location Rt brachial Position Sitting Pulse 80 Pulse Source Pulse Oximeter Intake Visit Reasons: DM Intake Note: Patient present today to follow up on Type 2 Diabetes Mellitus. Last Diabetic Eye exam: 03/2022 Last Podiatry Visit: 06/2023 Random Glucose: 169 mg/dl HgA1C: 9.7% National Sales Trainer Required: No National Sales Trainer Name: Patient refused infrastructure security architect Accompanied by: Daughter Allergies aspirin [ASPIRIN] Allergy (Severe, Verified 06/24/23 13:21) Swelling, rash fish derived [FISH] Allergy (Mild, Verified 06/24/23 13:21) Rash, Swelling Penicillins [PENICILLINS] Allergy (Unknown, Verified 06/24/23 13:21) Swelling Medication List - Last Reconciled 06/24/23 by Sae Ferrell MD acetaminophen 650 mg PO Q6H PRN ascorbate calcium (vitamin C) 500 mg PO DAILY 90 days atorvastatin 40 mg PO DAILY [Bedside commode As directed] blood sugar diagnostic (FreeStyle Lite Strips) As directed three times a day blood-glucose meter (FreeStyle Lite Meter kit) As directed 4x/day cholecalciferol (vitamin D3) 50 mcg PO DAILY 30 days clopidogrel 75 mg PO DAILY cyanocobalamin (vitamin B-12) (Vitamin B-12) 1,000 mcg PO DAILY denosumab (Prolia) 60 mg subcut [id number] 30 days ferrous sulfate (Feosol) 325 mg PO DAILY flash glucose sensor (FreeStyle Angela 2 Sensor kit) Once every 14 days furosemide 20 mg PO DAILY insulin glargine (Lantus Solostar U-100 Insulin) 30 units (0.3 mL) subcut DAILY insulin lispro subcutaneously 3 times a day; 100-150 8 units, 151-200 10 units, 201-250 10 units >250 12 units lancets As directed lansoprazole 30 mg PO DAILY levothyroxine 88 mcg PO DAILY metoprolol succinate ER 25 mg PO BID [id number]-[id number]-[id number] 3.5-10,000-1 mg/mL-unit/mL-% 4 drps otic (ear) left Q8H 10 days pen needle, diabetic (BD Denisa 2nd Gen Pen Needle) USE FOUR TIMES DAILY [raised toilet seat with arms As directed] [Shower chair with arms As directed] [walker with seat and breaks As directed] HPI Comments Details: 72 YO F with PMHx T2DM, Osteoporosis and hyperaprathyroidism who is seen in F/U for T2DM and Osteoporosis. Patient last saw Dr. Lombardo on 08/05/2022. Today's visit focus on type 2 diabetes 1) T2DM: Initially diagnosed with T2DM in 1989. Was initially started on treatment with Metformin. This was stopped due to CKD Stage III. GLP-1 contraindicated due to family history of pancreatic cancer. Took Trulicity a few yrs ago but stopped for unclear reasons Current regimen Lantus 30 units qAM and Humalog sliding scale (ISF 25 with goal of 150).scale is at home Uses CGM [place]. 14 days of data downloaded from 06/10/22-06/24/2023 This reveals an average glucose of 242, with GMI of 9.1%. She is at goal 20% of the time, above goal 80% of the time, and below goal 0% of the time. No lows since her last visit. She is running high always postprandially. With greatest increases after lunch and from 03:00 to 06:00 Treats lows with juice. Checks sugar after to ensure it is rising. Treats according to rule of 15's. Family history of T2DM in her parents. Has eyes checked yearly, last eye exam last yr. Needs to make appt , denies retinopathy. Has neuropathy, sees podiatry every 2 months. Denies nephropathy, not on VARUN/ARB due to CKD. Follows with Nephrology. UAC 115.8 06/12/2022 Has HLD, on Atorvastatin 40 mg PO daily. Last LDL 84 as measured on 11/15/2021. Denies CAD. Diet: Does not follow a low carb diet. Weight: Stable. Had diabetes education. 2) Osteoporosis and Hyperparathyroidism: 71 YO F with PMHx T2DM and Hypercalcemia who is seen in F/U for T2DM. First noted to have high calcium in 2020, but a review of records reveals her Calcium has been highly variable for a number of years. Had labs assessed by Zuleyma Rockwell 11/27/2020 with Calcium 10.0, Albumin 4.3, PTH 106 and Vitamin D 38.1. She does have CKD Stage 3. She had a DEXA 01/18/2021 which revealed Osteoporosis of the distal forearm. She opted to pursue medical management rather than surgical parathyroidectomy and began treatment with Prolia with her first dose 06/05/2021, second dose 12/12/2021. She is due for her 3rd dose now. She had an US of the neck 01/02/2021 which revealed no evidence of thyroid nodules or a parathyroid adenoma. Currently not using a Calcium supplement. Currently not using HCTZ. Kidney stones: Denies Family history of high calcium or kidney stones: Denies DEXA: 01/18/2021 FINDINGS: AP SPINE L1-L4: Current: BMD 1.170 g/cm2, Z-score 1.5, T-score -0.1, normal, 12.0% increase from previous, 11.4% increase from baseline (<5% change is not significant). Prior: BMD 1.045 g/cm2. Baseline: BMD 1.050 g/cm2. LEFT FEMUR, NECK: Current: BMD 0.983 g/cm2, Z-score 1.2, T-score -0.4, normal. Prior: BMD 1.016 g/cm2. Baseline: BMD 1.066 g/cm2. LEFT FEMUR, TOTAL: Current: BMD 1.160 g/cm2, Z-score 2.5, T-score 1.2, normal, 0.0% no change from previous, 1.0% decrease from baseline (<5% change is not significant). Prior: BMD 1.160 g/cm2. Baseline: BMD 1.172 g/cm2. LEFT FOREARM RADIUS 33%: BMD 0.623 g/cm2, Z-score -1.2, T-score -2.9, osteoporosis. Prior:? Not previously measured. Labs: Laboratory Tests 06/12/22 06/12/22 06/12/22 14:30 14:40 14:40 Creatinine 1.56 H Estimated GFR 33 Hemoglobin A1c % 9.0 25-OH Vitamin D Total 33.3 TSH 0.31 L Free T4 1.26 PTH Intact Calcium (PTH Intact) Microalb/Creat Ratio 115.8 06/12/22 14:40 Creatinine Estimated GFR Hemoglobin A1c % 25-OH Vitamin D Total TSH Free T4 PTH Intact 76 Calcium (PTH Intact) 9.9 Microalb/Creat Ratio [facility] Medical History Colonoscopy refused Abnormal SPEP Personal history of malignant neoplasm of uterus Subcutaneous mass T2DM (type 2 diabetes mellitus) Urinary retention with incomplete bladder emptying Osteoporosis Elevated liver enzymes Hypoglycemia Hyperparathyroidism Serum calcium elevated CKD stage 3 due to type 2 diabetes mellitus 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 Mother Pancreatic cancer Social History Household Members: Family Housing: Apartment Do you presently have visiting nurse or other home services: No Alcohol intake: current Alcohol intake frequency: holidays/special occasions only Patient Tobacco Use Status: Never used Tobacco e-Cigarette/Vaping Use: Never Used Second Hand Smoke Exposure: No Advance Directives Date on File: 02/04/20 service: No Current occupational status: unemployed Cognitive needs: No Hearing needs: No Vision needs: Yes Physical Exam Vital Signs: Last Vital Signs Pulse 80 06/24/23 13:18 BP 100/64 06/24/23 13:18 BMI result Body Mass Index 30.5 Absence of Cushingoid features. Absence of acromegalic features. Neck exam reveals nl size thyroid about 15 gms. No thyroid nodules palpable. No carotid bruits present. Lungs CTA. Heart S1 S2, Reg R/R. No M/R/ G. Skin exam reveals ab sence of vitiligo or acanthosis nigricans. Abdominal exam reveals Soft NT/ND with NA BS. No organomegaly present. Neck Other: . Extrem Other: Visual exam of foot performed. No ulcerations or open lesions. No onchomycosis, no callouses.Pulses 2 + distally Sensation intact to monofilament exam. Vibratory sensation sensed is intact with 128 Hz tuning fork Results AMB Hemoglobin A1c AMB Hemoglobin A1c 9.7 % Last Edit by KARMEN Logan on 06/24/23 13:38 Results Reviewed Results Reviewed: Laboratory Last Values Glucose (Clinic) 169 mg/dL (60-115) H 06/24/23 13:23 Assessment & Plan Assessment & Plan (1) Diabetes type 2, uncontrolled: Code(s): E11.65 - Type 2 diabetes mellitus with hyperglycemia Category: Medical Qualifiers: Glycemic state: with hyperglycemia Qualified Code(s): E11.65 - Type 2 diabetes mellitus with hyperglycemia Plan: This 72-year-old female with a history of type 2 diabetes being treated with basal-bolus insulin with poor glycemic with known microvascular complications namely CKD stage 3 and neuropathy. She also has fatty liver disease . Family history of pancreatic cancer does not absolutely contraindicated the use of a G LP 1 The plan is to increase the Lantus to 40 units . Will also increase Humalog sliding scal prior to dinner Will have patient see early childhood special educator and n utritionist. (2) Otitis externa: Code(s): H60.90 - Unspecified otitis externa, unspecified ear Plan: not addressed (3) Osteoporosis: Code(s): M81.0 - Age-related osteoporosis without current pathological fracture Category: Medical Plan: In the setting of CKD stage IIIB, patient received several doses of Prolia but did not receive any for the last year and a half. Secondary workup was negative. Will repeat DEXA bone density of the hip and spine Orders: Orders XR DEXA axial skeleton Today M81.0 - Age-related osteoporosis without current pathological fracture AMB Hemoglobin A1c Today E11.65 - Type 2 diabetes mellitus with hyperglycemia, Z13.9 - Encounter for screening, unspecified Coding Level of Care Code Est Pt Level 4 (24515) Diagnoses Uncontrolled type 2 diabetes mellitus with hyperglycemia E11.65 Glycemic state: with hyperglycemia Otitis externa H60.90 Osteoporosis M81.0
[2023-06-24 13:18] VITALS: BP 100/64; PULSE 80; BMI 30.5
[2023-06-24 13:27] LABS: Glucose, Whole Blood 169 mg/dL (60-115)
== END 2023-06-24 14:07 | disposition home or self-care (01) ==
PROVIDERS: PCP Internal Medicine; Visit Provider Internal Medicine Endocrinology, Diabetes & Metabolism
DX: E11.65 Type 2 diabetes mellitus with hyperglycemia (principal); H60.90 Unspecified otitis externa, unspecified ear; M81.0 Age-related osteoporosis without current pathological fracture; Z13.9 Encounter for screening, unspecified
CPT/HCPCS: 99214

== ENCOUNTER 2023-06-24 12:59 | Outpatient (AMB) | payer MEDICARE, MEDICAID, SELFPAY ==
--- NOTE | 2023-06-24 13:36 | A.OFFVIS_ITS ---
Intake Intake Visit Reasons: DM Design Printing Machine Set Up Operator Required: Yes Design Printing Machine Set Up Operator Language: Advertising Account Manager Name: Pt's Daughter Accompanied by: Daughter Allergies aspirin [ASPIRIN] Allergy (Severe, Verified 06/24/23 13:21) Swelling, rash fish derived [FISH] Allergy (Mild, Verified 06/24/23 13:21) Rash, Swelling Penicillins [PENICILLINS] Allergy (Unknown, Verified 06/24/23 13:21) Swelling HPI Comprehensive Diabetes Asmnt Most Recent Diabetes Results: Microalb/Creat Ratio 115.8 ug/mg cr 06/12/22 Cholesterol 156 mg/dL (<200) 11/01/22 HDL Cholesterol 54 mg/dL (>40) 11/01/22 Triglycerides 118 mg/dL (<150) 11/01/22 Creatinine 1.61 mg/dL (0.5-1.4) H 06/19/23 Blood Urea Nitrogen 35 mg/dL (9-16) H 06/19/23 Sodium 132 mmol/L (135-145) L 06/19/23 Potassium 4.5 mmol/L (3.3-5.1) 06/19/23 Chloride 102 mmol/L (96-108) 06/19/23 Carbon Dioxide 23 mmol/L (22-29) 06/19/23 Calcium 9.6 mg/dL (8.4-10.2) 06/19/23 AST 35 U/L (5-31) H 06/19/23 ALT 24 U/L (0-31) 06/19/23 Total Protein 8.2 g/dL (6.5-8.0) H 06/19/23 Albumin 3.8 g/dL (3.5-5.0) 06/19/23 [facility] Medical History Colonoscopy refused Abnormal SPEP Personal history of malignant neoplasm of uterus Subcutaneous mass T2DM (type 2 diabetes mellitus) Urinary retention with incomplete bladder emptying Osteoporosis Elevated liver enzymes Hypoglycemia Hyperparathyroidism Serum calcium elevated CKD stage 3 due to type 2 diabetes mellitus 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 Mother Pancreatic cancer Social History Household Members: Family Housing: Apartment Do you presently have visiting nurse or other home services: No Alcohol intake: current Alcohol intake frequency: holidays/special occasions only Patient Tobacco Use Status: Never used Tobacco e-Cigarette/Vaping Use: Never Used Second Hand Smoke Exposure: No Advance Directives Date on File: 02/04/20 service: No Current occupational status: unemployed Cognitive needs: No Hearing needs: No Vision needs: Yes Assessment & Plan Assessment & Plan (1) T2DM (type 2 diabetes mellitus): Code(s): E11.9 - Type 2 diabetes mellitus without complications Plan: Personal Continuous Glucose Monitor: Patients CGM information reviewed Reviewed patient's sensor data: Hypoglycemia: ?0% Hyperglycemia:? 80% Time in Range:? 20% Average glucose for the last 2 weeks?242 mg/dL Patient seen by Dr. Ferrell today at visit today Dr. Ferrell increased Lantus from 30 units to 40 units based on CGM data. Patient did not bring sliding scale so no adjustments to mealtime insulin made at today's visit Reviewed with patient target goals, and the plate handout given in [place] Asked patient and her daughter to bring Humalog sliding scale to next visit Reviewed how to interpret trend arrows Reminded patient that to check finger sticks if symptoms do not match sensor reading. Discussed lag time between finger stick and sensor data.? Patient able to insert sensor independently at home without issue.? Will follow-up with environmental educator in 1 month Coding Level of Care Code Est Pt Level 1 (79578) Diagnoses T2DM (type 2 diabetes mellitus) E11.9 Results AMB Hemoglobin A1c AMB Hemoglobin A1c 9.7 % Last Edit by KARMEN Logan on 06/24/23 13:38
== END 2023-06-24 13:56 | disposition home or self-care (01) ==
PROVIDERS: PCP Internal Medicine; Visit Provider Registered Nurse Diabetes Educator
DX: E11.9 Type 2 diabetes mellitus without complications (principal)

== ENCOUNTER → 2023-06-24 12:59 | Outpatient (BNVA) | payer MEDICARE, MEDICAID, SELFPAY | PROVIDERS: PCP Internal Medicine; Visit Provider Internal Medicine Endocrinology, Diabetes & Metabolism | DX: E11.65 Type 2 diabetes mellitus with hyperglycemia (principal); H60.90 Unspecified otitis externa, unspecified ear; M81.0 Age-related osteoporosis without current pathological fracture | CPT/HCPCS: 82947; 83036; 99211; 99212 ==

== ENCOUNTER 2023-07-16 12:00 | Outpatient (AMB) | payer MEDICARE, MEDICAID, SELFPAY ==
--- NOTE | 2023-07-16 12:03 | AM.OFFWIN_ITS ---
Intake Vital Signs 07/16/23 12:09 Height 4 ft 10 in Weight 145 lb BMI 30.3 BP 140/80 H Blood Pressure Location Rt brachial Position Sitting Pulse 74 Pulse Source Pulse Oximeter Temp 98.3 F Temp Source Oral Pulse Oximetry (%) 100 Intake Visit Reasons: EP cough runny nose fever Intake Note: pt is here for cough, runny nose, fever for 2 days Patient Tobacco Use Status: Never used Tobacco Allergies aspirin [ASPIRIN] Allergy (Severe, Verified 07/16/23 12:10) Swelling, rash fish derived [FISH] Allergy (Mild, Verified 07/16/23 12:10) Rash, Swelling Penicillins [PENICILLINS] Allergy (Unknown, Verified 07/16/23 12:10) Swelling Do you need a note to return to daycare/school/sports/work: No HPI HPI Comments History of Present Illness Details Daughter interpretting for her + cough yesterday This am fatigue and low grade fever Worsening cough with runny nose + Tylenol; last dose was 7 this am Pt denies ST but + itchy throat Pt's daughter came from [place] on and + fever with + flu on Friday Pt was around her all day No abdominal pain or dysuria + nausea No body aches PFSH Medical History Colonoscopy refused Abnormal SPEP Personal history of malignant neoplasm of uterus Subcutaneous mass T2DM (type 2 diabetes mellitus) Urinary retention with incomplete bladder emptying Osteoporosis Elevated liver enzymes Hypoglycemia Hyperparathyroidism Serum calcium elevated CKD stage 3 due to type 2 diabetes mellitus 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 Mother Pancreatic cancer Social History Household Members: Family Housing: Apartment Do you presently have visiting nurse or other home services: No Alcohol intake: current Alcohol intake frequency: holidays/special occasions only Patient Tobacco Use Status: Never used Tobacco e-Cigarette/Vaping Use: Never Used Second Hand Smoke Exposure: No Advance Directives Date on File: 02/04/20 service: No Current occupational status: unemployed Cognitive needs: No Hearing needs: No Vision needs: Yes Review of Systems Const Denies body aches, Reports chills, Reports fatigue and Reports fever(s) ENT Denies dizziness, Denies otalgia, Reports nasal discharge, Denies sinus pressure and Reports sore throat (itchy) Card Denies chest pain, Denies syncope and Denies dyspnea Resp Reports chest congestion, Reports cough and Denies dyspnea GI Denies abdominal pain, Denies diarrhea, Reports nausea and Denies vomiting Neuro Denies dizziness and Denies syncope Endo Reports fatigue Physical Exam Vital Signs: Last Vital Signs Temp 98.3 F 07/16/23 12:09 Pulse 74 07/16/23 12:09 BP 140/80 H 07/16/23 12:09 Pulse Ox 100 07/16/23 12:09 BMI result Body Mass Index 30.3 General: Non-toxic, NAD. Speaking full sentences. Skin: Warm dry throughout Eye: EOMI, PERRl HENT: Airway patent. Uvula midline. No pharyngeal erythema or edema. No MACHINING DEPARTMENT SUPERVISOR. +rhinorrhea Bilateral canals clear. TM non-erythematous, non-bulging. No TM perforation or hemotympanum noted. Respiratory: CTA bilaterally. No wheezes, rales or rhonchi Cardiac: RRR. No murmur Neurology: Alert. No aphasia or facial droop. Gait without abnormality using walker Psych: Good mood and affect Assessment & Plan Assessment & Plan (1) Upper respiratory tract infection: Code(s): J06.9 - Acute upper respiratory infection, unspecified Qualifiers: URI type: unspecified viral URI Qualified Code(s): J06.9 - Acute upper respiratory infection, unspecified Plan: Patient seen and evaluated. + flu exposure RSV/Flu/Covid swab obtained and sent Tamiflu and zofran to pharmacy (EKG from 2021 negative for Prolong QT) Discussed side effects of tamiflu Discussed ER protocol and signs/symptoms to monitor for Patient and daughter gave verbal understanding and had no additional questions or concerns at time of discharge All questions answered Orders: Orders SARS-CoV2/FLU/RSV Today J06.9 - Acute upper respiratory infection, unspecified Medications: New oseltamivir (Tamiflu) 75 mg PO BID 10 caps 0RF 5 days ondansetron 4 mg PO Q8H PRN 7 tabs 0RF nausea and vomiting Coding Level of Care Code Est Pt Level 3 (72141) Diagnoses Viral upper respiratory tract infection J06.9 URI type: unspecified viral URI
[2023-07-16 12:09] VITALS: BP 140/80; PULSE 74; TEMP 36.8; O2SAT 100; BMI 30.3
== END 2023-07-16 12:41 | disposition home or self-care (01) ==
PROVIDERS: PCP Internal Medicine; Visit Provider Physician Assistant
DX: J06.9 Acute upper respiratory infection, unspecified (principal)
CPT/HCPCS: 99213

== ENCOUNTER 2023-07-16 13:41 | Outpatient (REF) | payer MEDICARE, MEDICAID, SELFPAY ==
[2023-07-16 14:40] LABS: Influenza A PCR POSITIVE (Negative); Influenza B PCR NEGATIVE (Negative); Resp Syncy Virus RNA Qual PCR NEGATIVE (Negative); SARS COV2 PCR INHOUSE NEGATIVE (Negative)
== END 2023-07-16 13:42 | disposition home or self-care (01) ==
LOC: HO.LNP 13:41
PROVIDERS: Visit Provider Physician Assistant
DX: J06.9 Acute upper respiratory infection, unspecified (principal)
CPT/HCPCS: 0241U

== ENCOUNTER 2023-07-29 12:55 | Outpatient (REF) | payer MEDICARE, MEDICAID, SELFPAY ==
--- NOTE | ~2023-07-29 | MM_ITS ---
EXAMINATION: BONE DENSITOMETRY CLINICAL INDICATION: Age-related osteoporosis without current pathological fracture. COMPARISON: Previous BD dated 01/18/2021 and baseline BD dated 08/02/2010. TECHNIQUE: Using a [employer] DXA System (software version: 13.1) manufactured by [employer], dual-energy x-ray absorptiometry was performed of the lumbar spine and left hip. The images are of good technical quality. Summary results are attached. FINDINGS: LEFT FEMUR, NECK: Current: BMD 0.974 g/cm2, Z-score 1.2, T-score -0.5, normal. Prior: BMD 0.983 g/cm2. Baseline: BMD 1.066 g/cm2. LEFT FEMUR, TOTAL: Current: BMD 1.146 g/cm2, Z-score 2.6, T-score 1.1, normal, 1.2% decrease from previous, 2.2% decrease from baseline (<5% change is not significant). Prior: BMD 1.160 g/cm2. Baseline: BMD 1.172 g/cm2. AP SPINE L1-L4: Current: BMD 1.129 g/cm2, Z-score 1.2, T-score -0.4, normal, 3.5% decrease from previous, 7.5% increase from baseline (<5% change is not significant). Prior: BMD 1.170 g/cm2. Baseline: BMD 1.050 g/cm2. IDENTIFIED RISK FACTORS: Early menopause, secondary osteoporosis (hyperthyroidism), hyperthyroid, hysterectomy, low calcium intake, osteoporosis, renal. HISTORY OF FRACTURE: None listed. MEDICATIONS: Vitamin D. MM/XR DEXA axial skeleton IMPRESSION: 1. DIAGNOSIS: Normal bone density based on the lowest T-score value of -0.5 in the femoral neck applying World Health Organization criteria. 2. 10-YEAR FRACTURE RISK PREDICTION, FRAX: According to the guidelines, FRAX calculation should only be performed on patients in the osteopenia bone density category. Therefore, FRAX was not performed on this patient.? 3. Treatment Recommendations: NOF guidelines recommend consideration for treatment in postmenopausal women and men age 50 and older presenting with the following: -A hip or vertebral (clinical or morphometric) fracture. -T-score less than or equal to -2.5 at the femoral neck or spine after appropriate evaluation to exclude secondary causes. -Low bone mass at the hip or spine and a 10-year fracture probability by FRAX of greater than or equal to 3% for hip fracture or greater than or equal to 20% for major osteoporotic fracture based on the [place] adapted WHO algorithm. 4. Other Recommendations: All treatment decisions require clinical judgment and consideration of individual patient factors, including patient preferences, comorbidities, previous drug use, risk factors not captured in the FRAX model (e.g. frailty, falls, vitamin D deficiency, increased bone turnover, interval significant decline in bone density) and possible under or overestimation of fracture risk by FRAX. FUTURE SCAN RECOMMENDATION: People with diagnosed cases of osteoporosis or at high risk for fracture should have regular bone mineral density tests. For patients eligible for Medicare, routine testing is allowed once every 2 years. The testing frequency can be increased to one year for patients who have rapidly progressing disease, those who are receiving or discontinuing medical therapy to restore bone mass, or have additional risk factors.
== END 2023-07-29 12:56 | disposition home or self-care (01) ==
LOC: HO.MAMMO 12:55
PROVIDERS: PCP Internal Medicine; Visit Provider Internal Medicine Endocrinology, Diabetes & Metabolism
DX: Z13.820 Encounter for screening for osteoporosis (principal); Z78.0 Asymptomatic menopausal state; M81.0 Age-related osteoporosis without current pathological fracture
CPT/HCPCS: 77080

== ENCOUNTER → 2023-07-30 13:29 | Outpatient (RCR) | payer MEDICARE, MEDICAID, SELFPAY ==
[2023-06-30 12:01] VITALS: BP 151/41; PULSE 88; RESP 18; TEMP 36.8; O2SAT 100; BMI 30.3
[2023-06-30] MEDS: Iron Sucrose Complex 200 MG in 0.9 % Sodium Chloride 100 ML 440 MG IV (12:35)
[2023-06-30] MEDS: 0.9 % Sodium Chloride Flush 10 ML SYRINGE 5 ML IVFLUSH (12:58)
[2023-07-09 13:48] VITALS: BP 122/55; PULSE 73; RESP 20; TEMP 36.2; O2SAT 99
[2023-07-09] MEDS: Iron Sucrose Complex 200 MG in 0.9 % Sodium Chloride 100 ML 440 MG IV (13:56)
[2023-07-15 10:39] VITALS: BP 155/48; PULSE 82; RESP 16; TEMP 36.4; O2SAT 100
[2023-07-15] MEDS: Iron Sucrose Complex 200 MG in 0.9 % Sodium Chloride 100 ML 440 MG IV (10:47)
[2023-07-23 12:42] VITALS: BP 145/57; PULSE 76; RESP 18; TEMP 36.6; O2SAT 98
[2023-07-23] MEDS: 0.9 % Sodium Chloride Flush 10 ML SYRINGE 5 ML IVFLUSH (12:45)
[2023-07-23] MEDS: Iron Sucrose Complex 200 MG in 0.9 % Sodium Chloride 100 ML 440 MG IV (12:50)
[2023-07-30 12:57] VITALS: BP 167/72; PULSE 83; RESP 20; TEMP 36.9; O2SAT 100
[2023-07-30] MEDS: 0.9 % Sodium Chloride Flush 10 ML SYRINGE 5 ML IVFLUSH (13:05)
[2023-07-30] MEDS: Iron Sucrose Complex 200 MG in 0.9 % Sodium Chloride 100 ML 440 MG IV (13:07)
== END | disposition home or self-care (01) ==
LOC: HO.INF 06-30 11:56
PROVIDERS: Visit Provider Internal Medicine
DX: D50.9 Iron deficiency anemia, unspecified (principal)
CPT/HCPCS: 96374; J1756

== ENCOUNTER 2023-10-30 13:55 | Outpatient (AMB) | payer MEDICARE, MEDICAID, SELFPAY ==
--- NOTE | 2023-10-30 14:17 | MHC.OFFWIV ---
Intake Vital Signs 10/30/23 14:22 Height 4 ft 10 in Weight 144 lb BMI 30.1 BP 108/70 Blood Pressure Location Rt brachial Position Sitting Pulse 72 Pulse Source Pulse Oximeter Pulse Oximetry (%) 100 Oxygen Delivery Method Room Air Intake Visit Reasons: EP- LT lump on abdomen Intake Note: Patient here for left upper abdominal pain that has been present for about 1 week. Patient Tobacco Use Status: Never used Tobacco Allergies aspirin [ASPIRIN] Allergy (Severe, Verified 10/30/23 14:24) Swelling, rash fish derived [FISH] Allergy (Mild, Verified 10/30/23 14:24) Rash, Swelling Penicillins [PENICILLINS] Allergy (Unknown, Verified 10/30/23 14:24) Swelling Do you need a note to return to daycare/school/sports/work: No HPI HPI Comments History of Present Illness Details Patient is a 73-year-old female complaining of a lump in her left upper abdomen that is been there about a week, she states it is a little tender when you push on it. She is here with her daughter who is interpreting. She denies any nausea, vomiting, diarrhea, fevers and has been having normal bowel movements, she denies any chest pain. It is not worse when she breathes deep. It comes and goes and nothing seems to make it worse besides pushing on it. [facility] Medical History Colonoscopy refused Abnormal SPEP Personal history of malignant neoplasm of uterus Subcutaneous mass T2DM (type 2 diabetes mellitus) Urinary retention with incomplete bladder emptying Osteoporosis Elevated liver enzymes Hypoglycemia Hyperparathyroidism Serum calcium elevated CKD stage 3 due to type 2 diabetes mellitus [facility]FP (current) 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 Mother Pancreatic cancer Social History Household Members: Family Housing: Apartment Do you presently have visiting nurse or other home services: No Alcohol intake: current Alcohol intake frequency: holidays/special occasions only Patient Tobacco Use Status: Never used Tobacco e-Cigarette/Vaping Use: Never Used Second Hand Smoke Exposure: No Advance Directives Date on File: 02/04/20 service: No Current occupational status: unemployed Cognitive needs: No Hearing needs: No Vision needs: Yes Review of Systems Const All systems reviewed & are unremarkable except as noted in HPI and below Physical Exam Vital Signs: Last Vital Signs Pulse 72 10/30/23 14:22 BP 108/70 10/30/23 14:22 Pulse Ox 100 10/30/23 14:22 Oxygen Delivery Method Room Air 10/30/23 14:22 BMI result Body Mass Index 30.1 Const General: cooperative, healthy appearing, comfortable, no acute distress and well developed Orientation/consciousness: patient oriented x3 Limitations: no limitations HEENT Head: Yes normal to inspection Ears: hearing grossly normal bilaterally General nose exam: Normal external nose present Face and sinus: Yes normal facial exam Eyes General: appearance normal, both eyes and all related structures Neck Neck: Yes normal visual inspection and Yes full ROM Chest Chest palpation & inspection: no localized rib tenderness and no masses Resp Effort & Inspection: normal respiratory effort and able to speak in complete sentences GI Inspection: Yes normal to inspection Palpation (GI): Soft to palpation and nontender Skin General skin exam: no rashes or lesions noted Neuro General: patient oriented x3 Extrem General: Yes normal to inspection Assessment & Plan Assessment & Plan (1) Muscle spasm: Code(s): M62.838 - Other muscle spasm Plan: Vital signs stable, physical exam unremarkable, no lump is appreciated on exam, recommended heating pad and follow up with PCP if pain continues. Plan see above Coding Level of Care Code Est Pt Level 3 (67638) Diagnoses Muscle spasm M62.838
[2023-10-30 14:22] VITALS: BP 108/70; PULSE 72; O2SAT 100; BMI 30.1
== END 2023-10-30 15:03 | disposition home or self-care (01) ==
PROVIDERS: PCP Internal Medicine; Visit Provider Physician Assistant
DX: M62.838 Other muscle spasm (principal)
CPT/HCPCS: 99213

== ENCOUNTER 2023-11-06 10:38 | Outpatient (AMB) | payer MEDICARE, MEDICAID, SELFPAY ==
--- NOTE | 2023-11-06 10:35 | A.OFFVIS_ITS ---
Vital Signs 11/06/23 10:52 Height 4 ft 10 in Weight 138 lb BMI 28.8 BP 100/60 Blood Pressure Location Rt brachial Position Sitting Pulse 90 Pulse Source Pulse Oximeter Intake Visit Reasons: Osteoporosis/T2DM/LVM Intake Note: Patient presents today to re-establish treatment for Type 2 Diabetes Mellitus & Osteoporosis: Last Diabetic eye exam was on: DUE Last Podiatry exam was on: DR. Mitul Sanchez, 10/01/2023 Most recent HbA1c: DUE Random Glucose- 193 mg/dL, Today Service Administrator Required: Yes Service Administrator Services: Service Administrator Offered & Declined (Patient signed the refusal to accept interpretative services (daughter)) Accompanied by: Daughter Allergies aspirin [ASPIRIN] Allergy (Severe, Verified 11/06/23 10:40) Swelling, rash fish derived [FISH] Allergy (Mild, Verified 11/06/23 10:40) Rash, Swelling Penicillins [PENICILLINS] Allergy (Unknown, Verified 11/06/23 10:40) Swelling HPI Comments Details: 72 YO F with PMHx T2DM, Osteoporosis and hyperaprathyroidism who is seen in F/U for T2DM and Osteoporosis. Patient last saw Dr. Ramos 06/23 and MARCOS 06/24Today's visit focus on type 2 diabetes 1) T2DM: Initially diagnosed with T2DM in 1989. Was initially started on treatment with Metformin. This was stopped due to CKD Stage III. GLP-1 contraindicated due to family history of pancreatic cancer. Took Trulicity a few yrs ago but stopped for unclear reasons Current regimen Lantus 30 units qAM and Humalog sliding scale Sensor download avg glucose 200 50 % high or very high 36% in range 1 percent low, 0% very low Treats lows with juice. Checks sugar after to ensure it is rising. Treats according to rule of 15's. Family history of T2DM in her parents. Has eyes checked yearly, 1 year ago, Needs to make appt, denies retinopathy. Has neuropathy, sees podiatry every 2 months consistent with this Follows with Nephrology. [facility] 115.8 06/12/2022 Has HLD, on Atorvastatin 40 mg PO daily. Last LDL 79 A hold of her [employer] on sensor of a all all day on diffuse okay good Denies CAD. Diet: Does not follow a low carb diet. Weight: Stable. Had diabetes education. osteoporosis not addressed today 2) Osteoporosis and Hyperparathyroidism: 71 YO F with PMHx T2DM and Hypercalcemia who is seen in F/U for T2DM. First noted to have high calcium in 2020, but a review of records reveals her Calcium has been highly variable for a number of years. Had labs assessed by Zuleyma Rockwell 11/27/2020 with Calcium 10.0, Albumin 4.3, PTH 106 and Vitamin D 38.1. She does have CKD Stage 3. She had a DEXA 01/18/2021 which revealed Osteoporosis of the distal forearm. She opted to pursue medical management rather than surgical parathyroidectomy and began treatment with Prolia with her first dose 06/05/2021, second dose 12/12/2021. She is due for her 3rd dose now. She had an US of the neck 01/02/2021 which revealed no evidence of thyroid nodules or a parathyroid adenoma. Currently not using a Calcium supplement. Currently not using HCTZ. Kidney stones: Denies Family history of high calcium or kidney stones: Denies DEXA: 01/18/2021 FINDINGS: AP SPINE L1-L4: Current: BMD 1.170 g/cm2, Z-score 1.5, T-score -0.1, normal, 12.0% increase from previous, 11.4% increase from baseline (<5% change is not significant). Prior: BMD 1.045 g/cm2. Baseline: BMD 1.050 g/cm2. LEFT FEMUR, NECK: Current: BMD 0.983 g/cm2, Z-score 1.2, T-score -0.4, normal. Prior: BMD 1.016 g/cm2. Baseline: BMD 1.066 g/cm2. LEFT FEMUR, TOTAL: Current: BMD 1.160 g/cm2, Z-score 2.5, T-score 1.2, normal, 0.0% no change from previous, 1.0% decrease from baseline (<5% change is not significant). Prior: BMD 1.160 g/cm2. Baseline: BMD 1.172 g/cm2. LEFT FOREARM RADIUS 33%: BMD 0.623 g/cm2, Z-score -1.2, T-score -2.9, osteoporosis. Prior:? Not previously measured. [facility] Medical History Colonoscopy refused Abnormal SPEP Personal history of malignant neoplasm of uterus Subcutaneous mass T2DM (type 2 diabetes mellitus) Urinary retention with incomplete bladder emptying Osteoporosis Elevated liver enzymes Hypoglycemia Hyperparathyroidism Serum calcium elevated CKD stage 3 due to type 2 diabetes mellitus retirement (current) 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 Mother Pancreatic cancer Social History Household Members: Family Housing: Apartment Do you presently have visiting nurse or other home services: No Alcohol intake: current Alcohol intake frequency: holidays/special occasions only Patient Tobacco Use Status: Never used Tobacco e-Cigarette/Vaping Use: Never Used Second Hand Smoke Exposure: No Advance Directives Date on File: 02/04/20 service: No Current occupational status: unemployed Cognitive needs: No Hearing needs: No Vision needs: Yes Physical Exam Vital Signs: Last Vital Signs Pulse 90 11/06/23 10:52 BP 100/60 11/06/23 10:52 BMI result Body Mass Index 28.8 Const Other: Absence of Cushingoid features. Absence of acromegalic features. Neck exam reveals nl size thyroid about 15 gms. No thyroid nodules palpable. Heart S1 S2, Reg R/R. No M/R G. Skin exam reveals absence of vitiligo or acanthosis nigricans. 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 Most recent A1c 9.2%. Continue Lantus and she was given a new sliding scale. Orders: Orders AMB Hemoglobin A1c 11/06/23 E11.65 - Type 2 diabetes mellitus with hyperglycemia Medications: Changed From insulin lispro subcutaneously 3 times a day; 100-150 8 units, 151-200 10 units, 201-250 10 units >250 12 units 15 mL 4RF E11.9 - Type 2 diabetes mellitus without complications To insulin lispro subcutaneously 3 times a day; 100-150 10 units, 151-200 12 units, 201-250 12 units >250 14 units 18 mL 4RF E11.9 - Type 2 diabetes mellitus without complications Coding Level of Care Code Est Pt Level 4 (07614) Complex EM visit Add On G2211 Diagnoses T2DM (type 2 diabetes mellitus) E11.9 Time Spent (min) 30 Comment Time spent reviewing labs/provider notes, face to face, chart doc
[2023-11-06 10:52] VITALS: BP 100/60; PULSE 90; BMI 28.8
[2023-11-06 10:54] LABS: Glucose, Whole Blood 193 mg/dL (60-115)
== END 2023-11-06 11:23 | disposition home or self-care (01) ==
PROVIDERS: PCP Internal Medicine; Visit Provider Nurse Practitioner Adult Health
DX: E11.9 Type 2 diabetes mellitus without complications (principal)
CPT/HCPCS: 99214; G2211

== ENCOUNTER → 2023-11-06 10:38 | Outpatient (BNVA) | payer MEDICARE, MEDICAID, SELFPAY | PROVIDERS: PCP Internal Medicine; Visit Provider Nurse Practitioner Adult Health | DX: E11.65 Type 2 diabetes mellitus with hyperglycemia (principal); M81.0 Age-related osteoporosis without current pathological fracture; Z71.89 Other specified counseling | CPT/HCPCS: 82947; 83036; 99212 ==

== ENCOUNTER 2023-11-28 10:51 | Outpatient (REF) | payer MEDICARE, MEDICAID, SELFPAY ==
[2023-11-28 13:16] LABS: MANUAL DIFF FLAG NO
[2023-11-28 13:44] LABS: Basophils Percent Auto 0.8 % (0-2); Eosinophils Absolute Auto 0.1 X10*3/uL (0.0-0.4); Eosinophils Percent Auto 1.3 % (0-4); Hematocrit 34.1 % (37.0-47.0); Hemoglobin 11.4 g/dl (12.0-16.0); Imm Gran Abs Auto 0.01 X10*3/uL (0.00-0.03); Imm Gran Pct Auto 0.2 % (0.0-0.4); Lymphocytes Percent Auto 19.5 % (20-40); Mean Corpuscular HGB Conc 33.4 g/dl (31.0-35.0); Mean Corpuscular Hemoglobin 31.1 pg (27.0-33.0); Mean Corpuscular Volume 92.9 fL (80.0-98.0); Mean Platelet Volume 10.1 fL (9.4-12.3); Monocytes Absolute Auto 0.4 X10*3/uL (0.1-1.2); Monocytes Percent Auto 7.4 % (2-11); Neutrophils Absolute Auto 3.7 x10*3/uL (2.0-8.3); Neutrophils Percent Auto 70.8 % (45-73); Platelet Count 271 X10*3/uL (160-400); Red Blood Count 3.67 X10*6/uL (4.20-5.50); Red Cell Distribution Width 12.6 % (11.0-16.0); White Blood Count 5.3 X10*3/uL (4.8-10.8)
[2023-11-28 13:48] LABS: Appearance Urine Turbid; Color Urine Yellow; Glucose Urine UA 500 mg/dL (Negative); Leukocyte Esterase Urine Large (3+) (Negative); Nitrite Urine Negative (Negative); UMIC TRIGGER UA YES; Urine Blood Moderate (2+) (Negative); Urine Ketones Negative (Negative); Urine Protein 100 (2+) mg/dL (Neg-Trace)
[2023-11-28 13:54] LABS: Bacteria Urine 1+ (None Seen); Hyaline Casts Urine 0-2 /LPF (0-2); WBC Urine >50 /HPF (0-5)
[2023-11-28 14:22] LABS: Vitamin B12 > 2000 pg/mL (200-900)
[2023-11-28 14:28] LABS: Alanine Aminotransferase 48 U/L (0-31); Albumin Level 3.8 g/dL (3.5-5.0); Alkaline Phosphatase 255 U/L (39-117); Anion Gap 14 (12-20); Aspartate Amino Transferase 49 U/L (5-31); Bilirubin Total 0.4 mg/dL (0.0-1.0); Blood Urea Nitrogen 44 mg/dL (9-16); Calcium 9.6 mg/dL (8.4-10.2); Carbon Dioxide 18 mmol/L (22-29); Chloride 104 mmol/L (96-108); Estimated Glomerular Filt Rate 21; Ferritin 279 ng/mL (10-250); Potassium 4.7 mmol/L (3.3-5.1); Sodium 131 mmol/L (135-145); Total Protein 8.6 g/dL (6.5-8.0)
[2023-11-28 14:40] LABS: Glucose Random 363 mg/dL (60-115)
[2023-11-29 22:08] LABS: LDL Cholesterol Direct 78 mg/dL (<100)
[2023-12-02 18:38] LABS: Vitamin D 25-OH, D2 <4 ng/mL; Vitamin D 25-OH, D3 28 ng/mL; Vitamin D 25-OH, Total 28 ng/mL (30-100)
== END 2023-11-28 10:52 | disposition home or self-care (01) ==
LOC: HO.HMGCLDS 10:51
PROVIDERS: Nurse Practitioner Family; PCP Internal Medicine; Visit Provider Internal Medicine
DX: E11.65 Type 2 diabetes mellitus with hyperglycemia (principal); E55.9 Vitamin D deficiency, unspecified; I10 Essential (primary) hypertension; E11.40 Type 2 diabetes mellitus with diabetic neuropathy, unspecified; E11.22 Type 2 diabetes mellitus with diabetic chronic kidney disease; N18.30 Chronic kidney disease, stage 3 unspecified; I63.9 Cerebral infarction, unspecified; E21.3 Hyperparathyroidism, unspecified; R79.89 Other specified abnormal findings of blood chemistry; G81.94 Hemiplegia, unspecified affecting left nondominant side; N31.9 Neuromuscular dysfunction of bladder, unspecified; R82.90 Unspecified abnormal findings in urine; N13.30 Unspecified hydronephrosis; R33.9 Retention of urine, unspecified; N39.0 Urinary tract infection, site not specified
CPT/HCPCS: 36415; 80053; 81001; 82306; 82607; 82728; 83721; 85025; 87086

== ENCOUNTER 2023-12-12 12:15 | Outpatient (AMB) | payer MEDICARE, MEDICAID, SELFPAY ==
[2023-12-12 12:17] VITALS: BP 100/70; PULSE 78; O2SAT 100; BMI 28.8
--- NOTE | 2023-12-12 12:17 | AM.OFFVISMDC ---
Intake Vital Signs 12/12/23 12:17 Height 4 ft 10 in Weight 138 lb BMI 28.8 BP 100/70 Blood Pressure Location Lt brachial Position Sitting Pulse 78 Pulse Source Pulse Oximeter Pulse Oximetry (%) 100 Oxygen Delivery Method Room Air Intake Visit Reasons: [facility] G0439 - see comments Allergies aspirin [ASPIRIN] Allergy (Severe, Verified 12/12/23 12:17) Swelling, rash fish derived [FISH] Allergy (Mild, Verified 12/12/23 12:17) Rash, Swelling Penicillins [PENICILLINS] Allergy (Unknown, Verified 12/12/23 12:17) Swelling Medication List - Last Reconciled 12/12/23 by Kimi Patino MD acetaminophen 650 mg PO Q6H PRN ascorbate calcium (vitamin C) 500 mg PO DAILY 90 days atorvastatin 40 mg PO DAILY [Bedside commode As directed] blood sugar diagnostic (FreeStyle Lite Strips) As directed three times a day blood-glucose meter (FreeStyle Lite Meter kit) As directed 4x/day cholecalciferol (vitamin D3) 50 mcg PO DAILY 30 days clopidogrel 75 mg PO DAILY cyanocobalamin (vitamin B-12) (Vitamin B-12) 1,000 mcg PO DAILY flash glucose sensor (FreeStyle Angela 2 Sensor kit) Once every 14 days furosemide 20 mg PO DAILY insulin glargine (Lantus Solostar U-100 Insulin) 30 units (0.3 mL) subcut DAILY insulin lispro subcutaneously 3 times a day; 100-150 10 units, 151-200 12 units, 201-250 12 units >250 14 units lancets As directed lansoprazole 30 mg PO DAILY levothyroxine 88 mcg PO DAILY metoprolol succinate ER 25 mg PO BID pen needle, diabetic (BD Denisa 2nd Gen Pen Needle) USE FOUR TIMES DAILY [raised toilet seat with arms As directed] [Shower chair with arms As directed] [walker with seat and breaks As directed] HPI [facility] G0439 - see comments HPI Details Patient is 73-year-old female came in today for Medicare wellness visit and her regular follow-up appointment Patient is seeing number of other providers as well Suffers from multiple medical problems including uncontrolled diabetes and worsening nephropathy Recent labs shows creatinine of 2.25 with GFR of [address] 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 Quevedo for the management of chronic abdominal discomfort Dr. Ferrell for the management of diabetes and hypothyroidism She had mammogram done March of this year and bone density July of this year, bone density showed normal report. Patient is dependent on her daughter for her care She uses walker for ambulation She is on atorvastatin 40 mg for lipid control Frusemide 20 mg for ankle swelling Metoprolol 25 mg b.i.d. for her heart These medications from PCP office Since patient is seeing other providers frequently and having labs done through them She comes here for follow-up once a year when she is due for Medicare wellness She is also incontinent of urine and feces and wears diapers HPI Comments History of Present Illness Details AWV Medical/social history reviewed Past medical history reviewed [place] of care / care team list updated Surgical/ hospitalization history reviewed Current medications including OTC and supplements reviewed Family history reviewed Tobacco controlled form updated Alcohol use form updated Illicit drug use in social history reviewed Current diagnosis of depression ?screening updated Appropriate PHQ 2/PHQ-9 completed . Vital signs reviewed Alcohol tobacco drug use reviewed and discussed . MMSE completed, patient's memory is affected she was not able to pass the MMSE . ? Fall risk: ?Assessed Fall history: ?None Have you had any falls with injury in the past year?? No Have you had 2 or more falls in the past year?? No Fall risk assessment completed Home safety discussed with the patient Functional ability assessed and discussed and documented Activities of daily living reviewed and appropriate actions taken . HRA filled out by the patient and reviewed by provider and scanned . Appropriate written screening schedule established . Any health advise needed provided . Advance care planning discussed with the patient , necessary paperwork filled Examination IPPE/AWE: Balance failed Romberg failed Tandem walk failed walk-in turn failed rise from sit to stand failed . ?Hearing ?whisper test failed . Medication list reviewed, patient is stable on medications All other providers patient is seeing discussed and noted . [facility] Medical History Colonoscopy refused Abnormal SPEP Personal history of malignant neoplasm of uterus Subcutaneous mass T2DM (type 2 diabetes mellitus) Urinary retention with incomplete bladder emptying Osteoporosis Elevated liver enzymes Hypoglycemia Hyperparathyroidism Serum calcium elevated CKD stage 3 due to type 2 diabetes mellitus shelter (current) 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 Mother Pancreatic cancer Social History Household Members: Family Housing: Apartment Do you presently have visiting nurse or other home services: No Alcohol intake: current Alcohol intake frequency: holidays/special occasions only Patient Tobacco Use Status: Never used Tobacco e-Cigarette/Vaping Use: Never Used Second Hand Smoke Exposure: No Advance Directives Date on File: 02/04/20 service: No Current occupational status: unemployed Cognitive needs: No Hearing needs: No Vision needs: Yes Questionnaire Medicare Wellness Checkup [age] What gender do you identify with?: female During the past 4 weeks, how much have you been bothered by emotional problems such as feeling anxious, depressed, irritable, sad or downhearted, and blue?: moderately During the past 4 weeks, has your physical & emotional health limited your social activities with family, friends, neighbors, or groups?: moderately During the past 4 weeks, how much bodily pain have you generally had?: mild pain During the past 4 weeks, was someone available to help you if you needed & wanted help?: yes, as much as I wanted During the past 4 weeks, what was the hardest physical activity you could do for at least 2 minutes?: very light Can you get to places out of walking distance without help? (For eg., can you travel alone on buses, taxis or drive your car?): No Can you go shopping for groceries or clothes without someone's help?: No Can you prepare your own meals?: No Can you do your housework without help?: No Because of any health problems, do you need the help of another person with your personal care needs such as eating, bathing, dressing or getting around the house?: Yes Can you handle your own money without help?: Yes During the past 4 weeks, how would you rate your health in general?: fair During the past 4 weeks how have things been going for you?: good & bad parts about equal Are you having difficulties driving your car?: not applicable, I don't use a car Do you always fasten your seat belt when you are in a car?: yes, usually During past 4 weeks, have you been bothered by the following: never: Falling or dizzy when standing up, Sexual problems?, Trouble eating well?, Teeth or denture problems?, Problems using the telephone? and Tiredness or fatigue? Have you fallen 2 or more times in the past year?: Yes Are you afraid of falling?: Yes Are you a smoker?: no During the past 4 weeks, how many drinks of wine, beer, or other alcoholic beverages did you have?: no alcohol at all Do you exercise for about 20 minutes 3 or more times a week?: yes, most of the time Have you been given information to help with the following?: yes: Hazards in your house that might hurt you? and yes: Keeping track of your medications? How often do you have trouble taking medicines the way you have been told to take them?: I always take medicine as prescribed How confident are you that you can control & manage most of your health problems?: not very confident What is your race?: or origin or descent Mini Mental State Exam (MMSE) Orientation What is the (year) (season) (date) (day) (month)?: season and month Where are we (state) (county) (town or city) (hospital) (floor)?: state and hospital/clinic Score Score: 4 Activity of Daily Living Bathing - sponge bath, tub bath or shower: receives help in bathing more than one body part (or not bathed) Dressing - getting clothes from closets & drawers, including inner/outer garments & fasteners.: receives help getting clothes or getting dressed, or stays undressed Toileting - going to the 'toilet room' for urine/bowel elimination & cleaning self/arranging clothes: receives help going to toilet room, cleaning self or arranging clothes Transfer: moves in & out of bed and chair without help (may use support object) Continence: has occasional 'accidents' Feeding: feeds self except getting help in cutting meat/buttering bread Total Score: 2 Information obtained from: informant (Patient's daughter who is present during this visit Kristy) Using telephone: needs assistance Traveling: dependent Shopping: dependent Preparing meals: dependent Housework: dependent Taking medicine: dependent Managing money: dependent PHQ-9 Over the last 2 weeks, how often have you been bothered by any of the following problems? 1. Little interest or pleasure in doing things: not at all 2. Feeling down, depressed, or hopeless: not at all 3. Trouble falling or staying asleep, or sleeping too much: not at all 4. Feeling tired or having little energy: nearly every day 5. Poor appetite or overeating: not at all 6. Feeling bad about yourself - or that you are a failure or have let yourself or your family down: not at all 7. Trouble concentrating on things, such as reading the newspaper or watching television: not at all 8. Moving or speaking so slowly that other people could have noticed. Or the opposite - being so fidgety or restless that you have been moving around a lot more than usual: not at all 9. Thoughts that you would be better off or of hurting yourself in some way: not at all Total score: 3 Depression Screening Interpretation: Negative Depression Screening Done: Yes 93237 - PHQ-9 Billing: Yes Source: Developed by Drs. Sae Nickerson, Tiffanie Andre, Giovani Chakraborty and colleagues, with an educational elsie from [employer]. Review of Systems Const Denies chills and Denies fever(s) ENT Denies epistaxis and Denies nasal discharge Card Denies chest pain Resp Denies chest congestion, Denies cough and Denies hemoptysis GI Denies diarrhea and Denies nausea Skin/Breast Denies rash Neuro Reports no additional complaints Psych Reports no additional complaints Endo Reports no additional complaints Physical Exam Vital Signs: Last Vital Signs Pulse 78 12/12/23 12:17 BP 100/70 12/12/23 12:17 Pulse Ox 100 12/12/23 12:17 Oxygen Delivery Method Room Air 12/12/23 12:17 BMI result Body Mass Index 28.8 Const General: cooperative, comfortable and no acute distress HEENT Head: Yes normocephalic Eyes General: appearance normal, both eyes and all related structures Neck Other: Supple Neck: Yes supple Resp Effort & Inspection: normal respiratory effort, no cough and no stridor Cardio Rhythm: regular rhythm Heart sounds: S1 normal heart sound present and S2 normal heart sound present Skin General skin exam: turgor normal Neuro General: tone normal and moves all extremities Extrem Other: No lower extremity swelling. Right lower extremity: no edema Left lower extremity: no edema Psych Other: Normal effect, speech clear Results Reviewed Results Reviewed: Laboratory Tests 06/19/23 11/28/23 16:28 10:59 Sodium 132 L 131 L Creatinine 1.61 H 2.25 H Estimated GFR 32 21 Assessment & Plan Assessment & Plan (1) Medicare annual wellness visit, subsequent: Code(s): Z00.00 - Encounter for general adult medical examination without abnormal findings (2) Uncontrolled diabetes mellitus: Code(s): E11.65 - Type 2 diabetes mellitus with hyperglycemia Qualifiers: Diabetes mellitus type: type 1 Glycemic state: with hyperglycemia Qualified Code(s): E10.65 - Type 1 diabetes mellitus with hyperglycemia (3) CKD stage 3 due to type 2 diabetes mellitus: Code(s): E11.22 - Type 2 diabetes mellitus with diabetic chronic kidney disease; N18.30 - Chronic kidney disease, stage 3 unspecified (4) shelter (current) 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: Code(s): Z79.4 - shelter (current) 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 (5) Lipid disorder: Code(s): E78.9 - Disorder of lipoprotein metabolism, unspecified (6) 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: Code(s): Z92.29 - Personal history of other drug therapy (7) History of CVA (cerebrovascular accident): Code(s): Z86.73 - Personal history of transient ischemic attack (TIA), and cerebral infarction without residual deficits (8) NAVARRO (nonalcoholic steatohepatitis): Code(s): K75.81 - Nonalcoholic steatohepatitis (NAVARRO) (9) LFT elevation: Code(s): R79.89 - Other specified abnormal findings of blood chemistry (10) Diabetic neuropathy: Code(s): E11.40 - Type 2 diabetes mellitus with diabetic neuropathy, unspecified Qualifiers: Diabetes mellitus complication detail: diabetic polyneuropathy Diabetes mellitus type: type 2 Qualified Code(s): E11.42 - Type 2 diabetes mellitus with diabetic polyneuropathy Plan Patient is 73-year-old female came in today for Medicare wellness visit and her regular follow-up appointment Patient is seeing number of other providers as well Suffers from multiple medical problems including uncontrolled diabetes and worsening nephropathy Recent labs shows creatinine of 2.25 with GFR of [address] 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 Quevedo for the management of chronic abdominal discomfort Dr. Ferrell for the management of diabetes and hypothyroidism She had mammogram done March of this year and bone density July of this year, bone density showed normal report. Patient is dependent on her daughter for her care She uses walker for ambulation She is on atorvastatin 40 mg for lipid control Frusemide 20 mg for ankle swelling Metoprolol 25 mg b.i.d. for her heart These medications from PCP office Since patient is seeing other providers frequently and having labs done through them She comes here for follow-up once a year when she is due for Medicare wellness She is also incontinent of urine and feces and wears diapers Orders: Orders Complete Blood Count Auto Diff Today E03.9 - Hypothyroidism, unspecified, E11.22 - Type 2 diabetes mellitus with diabetic chronic kidney disease, E11.42 - Type 2 diabetes mellitus with diabetic polyneuropathy, E11.65 - Type 2 diabetes mellitus with hyperglycemia, E78.9 - Disorder of lipoprotein metabolism, unspecified, K75.81 - Nonalcoholic steatohepatitis (NAVARRO), N18.30 - Chronic kidney disease, stage 3 unspecified, N28.9 - Disorder of kidney and ureter, unspecified, R79.89 - Other specified abnormal findings of blood chemistry, Z00.00 - Encounter for general adult medical examination without abnormal findings, Z79.4 - shelter (current) 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, Z86.73 - Personal history of transient ischemic attack (TIA), and cerebral infarction without residual deficits, Z92.29 - Personal history of other drug therapy Comprehensive Met. 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.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, Z86.73 - Personal history of transient ischemic attack (TIA), and cerebral infarction without residual deficits, Z92.29 - Personal history of other drug therapy LDL Cholesterol Direct Today E03.9 - Hypothyroidism, unspecified, E11.22 - Type 2 diabetes mellitus with diabetic chronic kidney disease, E11.42 - Type 2 diabetes mellitus with diabetic polyneuropathy, E11.65 - Type 2 diabetes mellitus with hyperglycemia, E78.9 - Disorder of lipoprotein metabolism, unspecified, K75.81 - Nonalcoholic steatohepatitis (NAVARRO), N18.30 - Chronic kidney disease, stage 3 unspecified, N28.9 - Disorder of kidney and ureter, unspecified, R79.89 - Other specified abnormal findings of blood chemistry, Z00.00 - Encounter for general adult medical examination without abnormal findings, Z79.4 - shelter (current) 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, Z86.73 - Personal history of transient ischemic attack (TIA), and cerebral infarction without residual deficits, Z92.29 - Personal history of other drug therapy TSH reflex Free T4 Today E03.9 - Hypothyroidism, unspecified, E11.22 - Type 2 diabetes mellitus with diabetic chronic kidney disease, E11.42 - Type 2 diabetes mellitus with diabetic polyneuropathy, E11.65 - Type 2 diabetes mellitus with hyperglycemia, E78.9 - Disorder of lipoprotein metabolism, unspecified, K75.81 - Nonalcoholic steatohepatitis (NAVARRO), N18.30 - Chronic kidney disease, stage 3 unspecified, N28.9 - Disorder of kidney and ureter, unspecified, R79.89 - Other specified abnormal findings of blood chemistry, Z00.00 - Encounter for general adult medical examination without abnormal findings, Z79.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, Z86.73 - Personal history of transient ischemic attack (TIA), and cerebral infarction without residual deficits, Z92.29 - Personal history of other drug therapy Hemoglobin A1c Today E03.9 - Hypothyroidism, unspecified, E11.22 - Type 2 diabetes mellitus with diabetic chronic kidney disease, E11.42 - Type 2 diabetes mellitus with diabetic polyneuropathy, E11.65 - Type 2 diabetes mellitus with hyperglycemia, E78.9 - Disorder of lipoprotein metabolism, unspecified, K75.81 - Nonalcoholic steatohepatitis (NAVARRO), N18.30 - Chronic kidney disease, stage 3 unspecified, N28.9 - Disorder of kidney and ureter, unspecified, R79.89 - Other specified abnormal findings of blood chemistry, Z00.00 - Encounter for general adult medical examination without abnormal findings, Z79.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, Z86.73 - Personal history of transient ischemic attack (TIA), and cerebral infarction without residual deficits, Z92.29 - Personal history of other drug therapy Quality Reporting (2019) Depression/Bipolar (159/160/161/177) PHQ-9: Total score: 3 Coding Level of Care Code Medicare Subsequent (G0439) Est Pt Level 4 (60156) Diagnoses Medicare annual wellness visit, subsequent Z00.00 Uncontrolled type 1 diabetes mellitus with hyperglycemia E10.65 Diabetes mellitus type: type 1 Glycemic state: with hyperglycemia CKD stage 3 due to type 2 diabetes mellitus E11.22; 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
== END 2023-12-12 13:40 | disposition home or self-care (01) ==
PROVIDERS: PCP Internal Medicine; Visit Provider Internal Medicine
DX: Z00.00 Encounter for general adult medical examination without abnormal findings (principal); E11.22 Type 2 diabetes mellitus with diabetic chronic kidney disease; N18.30 Chronic kidney disease, stage 3 unspecified; Z79.4 Long term (current) 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; E11.42 Type 2 diabetes mellitus with diabetic polyneuropathy; E78.9 Disorder of lipoprotein metabolism, unspecified; Z92.29 Personal history of other drug therapy; Z86.73 Personal history of transient ischemic attack (TIA), and cerebral infarction without residual deficits; K75.81 Nonalcoholic steatohepatitis (NASH); R79.89 Other specified abnormal findings of blood chemistry

== ENCOUNTER → 2023-12-12 12:15 | Outpatient (BNVA) | payer MEDICARE, MEDICAID, SELFPAY | PROVIDERS: PCP Internal Medicine; Visit Provider Internal Medicine | DX: Z00.00 Encounter for general adult medical examination without abnormal findings (principal); E11.42 Type 2 diabetes mellitus with diabetic polyneuropathy; E11.65 Type 2 diabetes mellitus with hyperglycemia; E11.22 Type 2 diabetes mellitus with diabetic chronic kidney disease; N18.30 Chronic kidney disease, stage 3 unspecified; E78.9 Disorder of lipoprotein metabolism, unspecified; K75.81 Nonalcoholic steatohepatitis (NASH); R79.89 Other specified abnormal findings of blood chemistry; Z92.29 Personal history of other drug therapy; Z86.73 Personal history of transient ischemic attack (TIA), and cerebral infarction without residual deficits; Z79.4 Long term (current) 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 | CPT/HCPCS: 96127; 99212 ==

== ENCOUNTER 2024-01-07 11:03 | Outpatient (REF) | payer MEDICARE, MEDICAID, SELFPAY ==
[2024-01-07 16:19] LABS: MANUAL DIFF FLAG NO
[2024-01-07 16:45] LABS: Basophils Percent Auto 0.6 % (0-2); Eosinophils Absolute Auto 0.2 X10*3/uL (0.0-0.4); Eosinophils Percent Auto 3.5 % (0-4); Hematocrit 31.5 % (37.0-47.0); Hemoglobin 10.5 g/dl (12.0-16.0); Imm Gran Abs Auto 0.02 X10*3/uL (0.00-0.03); Imm Gran Pct Auto 0.4 % (0.0-0.4); Lymphocytes Absolute Auto 1.1 X10*3/uL (1.2-4.9); Lymphocytes Percent Auto 20.9 % (20-40); Mean Corpuscular HGB Conc 33.3 g/dl (31.0-35.0); Mean Corpuscular Hemoglobin 31.3 pg (27.0-33.0); Mean Corpuscular Volume 93.8 fL (80.0-98.0); Mean Platelet Volume 9.9 fL (9.4-12.3); Monocytes Absolute Auto 0.4 X10*3/uL (0.1-1.2); Monocytes Percent Auto 8.4 % (2-11); Neutrophils Absolute Auto 3.4 x10*3/uL (2.0-8.3); Neutrophils Percent Auto 66.2 % (45-73); Platelet Count 286 X10*3/uL (160-400); Red Blood Count 3.36 X10*6/uL (4.20-5.50); Red Cell Distribution Width 12.4 % (11.0-16.0); White Blood Count 5.1 X10*3/uL (4.8-10.8)
[2024-01-07 17:10] LABS: Estimated Average Glucose 189 mg/dL; Hemoglobin A1C 198.3405 umol/L; Hemoglobin A1c % 8.2 % (<6.0)
[2024-01-07 17:14] LABS: Alanine Aminotransferase 54 U/L (0-31); Albumin Level 3.7 g/dL (3.5-5.0); Alkaline Phosphatase 263 U/L (39-117); Anion Gap 15 (12-20); Aspartate Amino Transferase 61 U/L (5-31); Bilirubin Total 0.3 mg/dL (0.0-1.0); Blood Urea Nitrogen 45 mg/dL (9-16); Calcium 9.7 mg/dL (8.4-10.2); Carbon Dioxide 17 mmol/L (22-29); Chloride 107 mmol/L (96-108); Estimated Glomerular Filt Rate 26; Glucose Random 97 mg/dL (60-115); Potassium 4.2 mmol/L (3.3-5.1); Sodium 135 mmol/L (135-145); Total Protein 8.3 g/dL (6.5-8.0)
[2024-01-07 17:17] LABS: TSH reflex Free T4 2.48 uIU/mL (0.32-4.0)
[2024-01-08 22:47] LABS: LDL Cholesterol Direct 69 mg/dL (<100)
== END 2024-01-07 11:04 | disposition home or self-care (01) ==
LOC: HO.HMGCLDS 11:03
PROVIDERS: PCP Internal Medicine; Referring Provider Internal Medicine; Visit Provider Internal Medicine Endocrinology, Diabetes & Metabolism
DX: Z00.00 Encounter for general adult medical examination without abnormal findings (principal); E78.9 Disorder of lipoprotein metabolism, unspecified; Z92.29 Personal history of other drug therapy; Z86.73 Personal history of transient ischemic attack (TIA), and cerebral infarction without residual deficits; K75.81 Nonalcoholic steatohepatitis (NASH); E11.65 Type 2 diabetes mellitus with hyperglycemia; R79.89 Other specified abnormal findings of blood chemistry; N28.9 Disorder of kidney and ureter, unspecified; E03.9 Hypothyroidism, unspecified; E11.22 Type 2 diabetes mellitus with diabetic chronic kidney disease; N18.30 Chronic kidney disease, stage 3 unspecified; E11.42 Type 2 diabetes mellitus with diabetic polyneuropathy; Z79.4 Long term (current) 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; Z79.899 Other long term (current) drug therapy
CPT/HCPCS: 36415; 80053; 83036; 83721; 84443; 85025; 99212

== ENCOUNTER 2024-01-07 11:03 | Outpatient (AMB) | payer MEDICARE, MEDICAID, SELFPAY ==
--- NOTE | 2024-01-07 11:05 | MHC.OFFVIS ---
Vital Signs 01/07/24 11:16 Height 4 ft 10.58 in Weight 138 lb 14.259 oz BMI 28.5 BP 106/56 L Blood Pressure Location Lt brachial Position Sitting Pulse 90 Pulse Source Pulse Oximeter Intake Visit Reasons: Osteoporosis-conf Intake Note: Patient present today for Osteoporosis follow up. 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 Patient see Debby Garrido NP for diabetes here. Today's visit focus is on the osteoporosis 2) Osteoporosis and Hyperparathyroidism: 71 YO F with PMHx T2DM and Hypercalcemia who is seen in F/U for T2DM. First noted to have high calcium in 2020, but a review of records reveals her Calcium has been highly variable for a number of years. Had labs assessed by Zuleyma Rockwell 11/27/2020 with Calcium 10.0, Albumin 4.3, PTH 106 and Vitamin D 38.1. She does have CKD Stage 3. She had a DEXA 01/18/2021 which revealed Osteoporosis of the distal forearm. She opted to pursue medical management rather than surgical parathyroidectomy and began treatment with Prolia with her first dose 06/05/2021, second dose 12/12/2021. She is due for her 3rd dose now. She had an US of the neck 01/02/2021 which revealed no evidence of thyroid nodules or a parathyroid adenoma. Currently not using a Calcium supplement. Currently not using HCTZ. Kidney stones: Denies Family history of high calcium or kidney stones: Denies DEXA: 01/18/2021 FINDINGS: AP SPINE L1-L4: Current: BMD 1.170 g/cm2, Z-score 1.5, T-score -0.1, normal, 12.0% increase from previous, 11.4% increase from baseline (<5% change is not significant). Prior: BMD 1.045 g/cm2. Baseline: BMD 1.050 g/cm2. LEFT FEMUR, NECK: Current: BMD 0.983 g/cm2, Z-score 1.2, T-score -0.4, normal. Prior: BMD 1.016 g/cm2. Baseline: BMD 1.066 g/cm2. LEFT FEMUR, TOTAL: Current: BMD 1.160 g/cm2, Z-score 2.5, T-score 1.2, normal, 0.0% no change from previous, 1.0% decrease from baseline (<5% change is not significant). Prior: BMD 1.160 g/cm2. Baseline: BMD 1.172 g/cm2. LEFT FOREARM RADIUS 33%: BMD 0.623 g/cm2, Z-score -1.2, T-score -2.9, osteoporosis. Prior:? Not previously measured. Labs: Laboratory Tests 06/12/22 06/12/22 06/12/22 14:30 14:40 14:40 Creatinine 1.56 H Estimated GFR 33 Hemoglobin A1c % 9.0 25-OH Vitamin D Total 33.3 TSH 0.31 L Free T4 1.26 PTH Intact Calcium (PTH Intact) Microalb/Creat Ratio 115.8 06/12/22 14:40 Creatinine Estimated GFR Hemoglobin A1c % 25-OH Vitamin D Total TSH Free T4 PTH Intact 76 Calcium (PTH Intact) 9.9 Microalb/Creat Ratio No fx since last visit. 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 Mother Pancreatic cancer Social History Household Members: Family Housing: Apartment Do you presently have visiting nurse or other home services: No Alcohol intake: current Alcohol intake frequency: holidays/special occasions only Patient Tobacco Use Status: Never used Tobacco e-Cigarette/Vaping Use: Never Used Second Hand Smoke Exposure: No Advance Directives Date on File: 02/04/20 service: No Current occupational status: unemployed Cognitive needs: No Hearing needs: No Vision needs: Yes Physical Exam Vital Signs: BMI result Body Mass Index 28.5 Assessment & Plan Assessment & Plan (1) Osteoporosis: Code(s): M81.0 - Age-related osteoporosis without current pathological fracture Category: Medical Plan: In the setting of CKD stage IIIB, patient received several doses of Prolia but did not receive any for the last year and a half. Secondary workup was negative. Recent DEXA of the hip and spine were normal. She is currently on calcium and vitamin-D without pharmacologic treatment At this point, terms of the osteoporosis, patient returned to the care of her primary care provider who she order another bone density in about 2 years time. If patient has progression of bone loss, she should be referred back to endocrinology Coding Level of Care Code Est Pt Level 3 (88146) Diagnoses Osteoporosis M81.0
[2024-01-07 11:16] VITALS: BP 106/56; PULSE 90; BMI 28.5
== END 2024-01-07 11:27 | disposition home or self-care (01) ==
LOC: HO.ENCR 11:04
PROVIDERS: PCP Internal Medicine; Visit Provider Internal Medicine Endocrinology, Diabetes & Metabolism
DX: M81.0 Age-related osteoporosis without current pathological fracture (principal)
CPT/HCPCS: 99213

== ENCOUNTER 2024-01-09 09:18 | Outpatient (REF) | payer MEDICARE, MEDICAID, SELFPAY ==
--- NOTE | ~2024-01-09 | XR_ITS ---
EXAMINATION: XR CHEST CLINICAL INFORMATION: Cough. COMPARISON: Chest radiograph dated 01/16/2022. TECHNIQUE: 2 views of the chest were obtained. FINDINGS: Hypoinflation of the lungs. No focal airspace consolidation. No pleural effusion or pneumothorax. Stable cardiomediastinal silhouette. XR/XR chest 2V IMPRESSION: Hypoinflation of the lungs without acute cardiopulmonary findings. Electronically signed by: Florin Rodríguez MD 01/09/2024 12:01 PM [facility]
[2024-01-09 14:35] LABS: Influenza A PCR NEGATIVE (Negative); Influenza B PCR NEGATIVE (Negative); Resp Syncy Virus RNA Qual PCR NEGATIVE (Negative); SARS COV2 PCR INHOUSE NEGATIVE (Negative)
== END 2024-01-09 09:19 | disposition home or self-care (01) ==
LOC: HO.HMGCX 09:18
PROVIDERS: PCP Internal Medicine; Visit Provider Physician Assistant Medical
DX: R05.1 Acute cough (principal); J06.9 Acute upper respiratory infection, unspecified; N30.00 Acute cystitis without hematuria
CPT/HCPCS: 0241U; 71046; 81003; 93005; 99212

== ENCOUNTER 2024-01-09 09:18 | Outpatient (AMB) | payer MEDICARE, MEDICAID, SELFPAY ==
--- NOTE | 2024-01-09 09:29 | MHC.OFFWIV ---
Intake Vital Signs 01/09/24 09:30 01/09/24 09:33 Weight 138 lb BP 118/76 Blood Pressure Location Lt brachial Position Sitting Pulse 104 H 112 H Pulse Source Pulse Oximeter Pulse Oximeter Pulse Oximetry (%) 100 Oxygen Delivery Method Room Air Intake Visit Reasons: high heart rate and unsteady and cough Intake Note: Patient here for cough, diarrhea, unsteady and elevated heart rate. Patient Tobacco Use Status: Never used Tobacco Allergies aspirin [ASPIRIN] Allergy (Severe, Verified 01/09/24 09:32) Swelling, rash fish derived [FISH] Allergy (Mild, Verified 01/09/24 09:32) Rash, Swelling Penicillins [PENICILLINS] Allergy (Unknown, Verified 01/09/24 09:32) Swelling HPI HPI Comments History of Present Illness Details This is a 73-year-old female with past medical history significant for essential hypertension, hyperlipidemia, type 2 diabetes mellitus, chronic kidney disease who presented to the walk-in clinic with multiple complaints. History is obtained via patient's daughter at bedside who is the patient's primary caregiver. Patient started feeling unwell last night. She has had low-grade fevers/chills and unsteady gait. She also developed a dry cough although denies any chest pain or shortness of breath. She has no sputum production or sputum purulence. She has mild associated nasal congestion and rhinorrhea. She also started to complain of low back pain without associated urinary symptoms such as frequency, urgency, dysuria, or hematuria; however, patient's daughter states she has a history of urinary tract infections in the past and they have presented similarly. Patient's daughter also noticed that her heart rate was on the higher side. 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 Mother Pancreatic cancer Social History Household Members: Family Housing: Apartment Do you presently have visiting nurse or other home services: No Alcohol intake: current Alcohol intake frequency: holidays/special occasions only Patient Tobacco Use Status: Never used Tobacco e-Cigarette/Vaping Use: Never Used Second Hand Smoke Exposure: No Advance Directives Date on File: 02/04/20 service: No Current occupational status: unemployed Cognitive needs: No Hearing needs: No Vision needs: Yes Review of Systems Const All systems reviewed & are unremarkable except as noted in HPI and below Reports no additional complaints Eyes Reports no additional complaints ENT Reports no additional complaints Card Reports no additional complaints Resp Reports no additional complaints GI Reports no additional complaints Reports no additional complaints Musc Reports no additional complaints Skin/Breast Reports system reviewed and no additional complaints, except as documented Neuro Reports no additional complaints Psych Reports no additional complaints Endo Reports no additional complaints Stewart/Lymph Reports no additional complaints Aller/Immun Reports no additional complaints Physical Exam Vital Signs: Last Vital Signs Pulse 112 H 01/09/24 09:33 BP 118/76 01/09/24 09:30 Pulse Ox 100 01/09/24 09:30 Oxygen Delivery Method Room Air 01/09/24 09:30 Const Other: Vital signs reviewed. Constitutional: Non-toxic appearing. No acute distress. Well-developed and well-nourished. HEENT: Normocephalic and atraumatic. Skin: Warm and dry. No rashes or lesions noted. Neck: Full and painless range of motion. No cervical lymphadenopathy. Cardio: Regular rate and rhythm. No murmurs, gallops, or rubs. No lower extremity edema. No JVD. Pulmonary: No respiratory distress. No accessory muscle usage. Clear to auscultation bilaterally without wheezing, crackles, or rhonchi. Gastrointestinal: Soft, nontender, and nondistended in all 4 quadrants. Normoactive bowel sounds in all 4 quadrants. Genitourinary: No CVA tenderness. Musculoskeletal: Normal range of motion in joints throughout the body. No deformity or other signs of injury. Neuro: Alert and oriented x4. Cranial nerves 2-12 grossly intact. No focal deficits appreciated. Psych: Normal mood and affect. Office Procedures EKG Details: Normal sinus rhythm at 98 beats per minute, no acute ischemic changes or ST T wave changes [id number], Complete Results AMB Urinalysis, Automated UA Leukoctes 500 Antony/uL Last Edit by ELI Bruno on 01/09/24 10:20 UA Nitrite Positive Last Edit by Osimn Blanc [facility] on 01/09/24 10:20 UA Urobilinogen 0.2 mg/dL Last Edit by Osmin lBanc [facility] on 01/09/24 10:20 UA Protein 30 mg/dL Last Edit by Osmni Blanc [facility] on 01/09/24 10:20 UA pH 6.0 Last Edit by Osmin Blanc [facility] on 01/09/24 10:20 UA Blood 25 Ian/uL Last Edit by Osmin Blanc [facility] on 01/09/24 10:20 UA Specific [place] 1.015 Last Edit by Osmin Blanc [facility] on 01/09/24 10:20 UA Ketone Negative Last Edit by Osmin Blanc [facility] on 01/09/24 10:20 UA Bilirubin 0 mg/dL Last Edit by Osmin Blanc [facility] on 01/09/24 10:20 UA Glucose 500 mg/dL Last Edit by Osmin Blanc [facility] on 01/09/24 10:20 Results Reviewed Results Reviewed: Laboratory Last Values Urine pH (Auto) 6.0 01/09/24 10:19 Specific [place] (Auto) 1.015 01/09/24 10:19 Urine Protein (Auto) 30 mg/dL 01/09/24 10:19 Glucose (UA)(Auto) 500 mg/dL 01/09/24 10:19 Urine Ketones (Auto) Negative 01/09/24 10:19 Urine Blood (Auto) 25 Ian/uL 01/09/24 10:19 Urine Nitrite (Auto) Positive 01/09/24 10:19 Urine Bilirubin (Auto) 0 mg/dL 01/09/24 10:19 Urine Urobilinogen (Auto) 0.2 mg/dL 01/09/24 10:19 Leukocyte Esterase (Auto) 500 Antony/uL 01/09/24 10:19 Assessment & Plan Assessment & Plan (1) Urinary tract infection: Code(s): N39.0 - Urinary tract infection, site not specified Qualifiers: Urinary tract infection type: acute cystitis Hematuria presence: without hematuria Qualified Code(s): N30.00 - Acute cystitis without hematuria Plan: This is a 73-year-old female with past medical history significant for essential hypertension, hyperlipidemia, type 2 diabetes mellitus, chronic kidney disease who presented to the walk-in clinic with low-grade fever/chills, low back pain, and dry cough x1 day. Patient was initially tachycardic to the 100s to 110s although her heart rate has improved to the 90s. An EKG was obtained, which showed normal sinus rhythm without acute ischemic changes or ST T wave changes. A urinalysis was obtained to rule out urinary tract infection versus pyelonephritis given fevers and low back pain and showed 3+ leukocyte esterase and positive nitrites, which could indicate an acute urinary tract infection. She has no flank pain or CVA tenderness to suggest pyelonephritis. Patient was sent home on p.o. cefpodoxime 100 mg twice daily x7 days for treatment of acute cystitis, which patient has tolerated in the past. Patient and her daughter were advised to proceed directly to the emergency room if she were to develop a worsening/persistent fever/chills, nausea/vomiting, hematuria, or flank pain. (2) Cough: Code(s): R05.9 - Cough, unspecified Qualifiers: Cough type: acute Qualified Code(s): R05.1 - Acute cough Plan: This is a 73-year-old female with past medical history significant for essential hypertension, hyperlipidemia, type 2 diabetes mellitus, chronic kidney disease who presented to the walk-in clinic with low-grade fever/chills, low back pain, and dry cough x1 day. Patient was initially tachycardic to the 100s to 110s although her heart rate has improved to the 90s. An EKG was obtained, which showed normal sinus rhythm without acute ischemic changes or ST T wave changes. A chest x-ray was obtained to rule out pneumonia given fevers and cough and was negative for any gross acute cardiopulmonary abnormality on my read. Patient's cough is likely in the setting of viral respiratory tract infection. Patient was tested for COVID/flu/RSV. Patient was discharged home on PO benzonatate 100 mg 3 times daily as needed for cough. Patient and her daughter were advised to proceed directly to the emergency room if patient were to develop worsening/persistent fevers/chills, chest pain or shortness of breath, or sputum production/purulence. Patient and her daughter verbalized understanding and they are in agreement with the plan. Orders: Orders XR chest 2V Today R05.9 - Cough, unspecified SARS-CoV2/FLU/RSV Today J06.9 - Acute upper respiratory infection, unspecified AMB Urinalysis Automated Today Z13.9 - Encounter for screening, unspecified Medications: New cefpodoxime must administer with a meal/food 100 mg PO BID 14 tabs 0RF benzonatate 100 mg PO TID PRN 14 caps 0RF cough Coding Level of Care Code Est Pt Level 3 (15642) Diagnoses Acute cystitis without hematuria N30.00 Urinary tract infection type: acute cystitis Hematuria presence: without hematuria Acute cough R05.1 Cough type: acute CPT Codes EKG - CPT: [id number], Complete ([id number])
[2024-01-09 09:30] VITALS: BP 118/76; PULSE 104; O2SAT 100
[2024-01-09 09:33] VITALS: PULSE 112
== END 2024-01-09 11:52 | disposition home or self-care (01) ==
PROVIDERS: PCP Internal Medicine; Visit Provider Physician Assistant Medical
DX: N30.00 Acute cystitis without hematuria (principal); R05.1 Acute cough; Z13.9 Encounter for screening, unspecified

== ENCOUNTER 2024-01-12 11:28 | Outpatient (AMB) | payer MEDICARE, MEDICAID, SELFPAY ==
--- NOTE | 2024-01-12 11:56 | MHC.OFFVIS ---
Intake Visit Reasons: 10m/PVR Intake Note: Patient presents for follow up today on: retention and recurrent uti Urology Medications: none Blood Thinner: clopidogrel PVR: 19ml's [facility] Required: Yes Accompanied by: Daughter Allergies aspirin [ASPIRIN] Allergy (Severe, Verified 01/12/24 12:24) Swelling, rash fish derived [FISH] Allergy (Mild, Verified 01/12/24 12:24) Rash, Swelling Penicillins [PENICILLINS] Allergy (Unknown, Verified 01/12/24 12:24) Swelling Medication List - Last Reconciled 01/12/24 by BRANDON Daniel acetaminophen 650 mg PO Q6H PRN ascorbate calcium (vitamin C) 500 mg PO DAILY 90 days atorvastatin 40 mg PO DAILY [Bedside commode As directed] benzonatate 100 mg PO TID PRN blood sugar diagnostic (FreeStyle Lite Strips) As directed three times a day blood-glucose meter (FreeStyle Lite Meter kit) As directed 4x/day cefpodoxime 100 mg PO BID cholecalciferol (vitamin D3) 50 mcg PO DAILY 30 days clopidogrel 75 mg PO DAILY cyanocobalamin (vitamin B-12) (Vitamin B-12) 1,000 mcg PO DAILY flash glucose sensor (FreeStyle Angela 2 Sensor kit) Once every 14 days furosemide 20 mg PO DAILY insulin glargine (Lantus Solostar U-100 Insulin) 30 units (0.3 mL) subcut DAILY insulin lispro subcutaneously 3 times a day; 100-150 10 units, 151-200 12 units, 201-250 12 units >250 14 units lancets As directed lansoprazole 30 mg PO DAILY levothyroxine 88 mcg PO DAILY metoprolol succinate ER 25 mg PO BID pen needle, diabetic (BD Denisa 2nd Gen Pen Needle) USE FOUR TIMES DAILY [raised toilet seat with arms As directed] [Shower chair with arms As directed] [walker with seat and breaks As directed] HPI Comments Details: Jacqueline is a pleasant 73 year old Yakut speaking patient who is accompanied by her daughter Kristy at todays visit who is a patient of Dr. Patino. She has a past medical history of bacteremia, CKD stage 3, CVA with left-sided weakness, DM Type II, diabetic neuropathy, elevated liver enzymes, hypertension, hyperlipidemia, iron deficiency anemia, osteoporosis, and vitamin-D deficiency. She presents to the office today for a follow up of her neurogenic bladder, incomplete bladder emptying, recurrent urinary tract infections, and bilateral hydronephrosis. In discussion with the patient and her daughter today she reports having seeked urgent care services on 01-08 for tachycardia, issues with balance, and a cough she had been experiencing at which time she was noted to have a urinary tract infection. Patient was last seen approximately 10 months ago at which time recommendations were made for 1 month follow-up however patient rescheduled her appointment as she had not been having any urinary issues and did not feel it was necessary to follow-up. We discussed at length importance in doing so. Patient with a history of cystoscopy, cystogram, and urethral dilation with Dr. Mcintyre on 11/12/22 for her recurrent urinary tract infections, bilateral hydronephrosis, and neurogenic bladder. Postop diagnosis noted vesicoureteral reflux bilateral grade 4 and urethral narrowing. The bladder wall appeared fibrinous with mild erythema. There were no suspicious bladder lesions seen. When contrast was mixed and placed under gravitiy there was noted to be bilateral reflux into both ureters up into the kidneys, noting significant dilation of the ureters and renal pelves. After draining the contrast there was drainage and decompression of bilateral ureters noted. In review of patient's chart it appears urinalysis from walk-in noted positive nitrates however urine culture was never submitted. She reports being on cefpodoxime 100 mg b.i.d. for 1 week. Patient's daughter reports she has stopped performing CIC 2 times per day as outputs were minimal when performing CIC. PVR today 19 mL. We discussed further treatment options of recurrent urinary tract infections to include trial of Estrace cream verses Vagifem however patient declines at this time. She does not feel any intervention is necessary. Daughter reports feeling UTI was triggered by uncontrolled blood sugars. When asked she currently denies urinary urgency, urinary frequency, nocturia, hematuria, dysuria, changes to urinary stream, flank pain, fever, and or chills. She does report urinary incontinence at times. Recent BUN and creatinine results reviewed with the daughter today. BUN: 11/23--45, 11/23--44, 06/23--35, 04/25--36, 04/02--33, 03/25--26, 01/22--34, 11/22--31, 05/22--39, 05/22--40, 03/26--37, 06/24 35, 11/24 44, 01/24 45 Creatinine: 11/23--1.30, 11/23--1.35, 06/23--1.56, 04/25--1.41, 03/25--1.49, 03/25--1.35, 01/22--1.72, 01/22--1.58, 11/22--1.39, 05/22--1.82, 05/22--1.97, 03/26--1.40, 06/24 1.88, 11/24 2.25, 01/24 1.61 PFSH Medical History Colonoscopy refused Abnormal SPEP Personal history of malignant neoplasm of uterus Subcutaneous mass T2DM (type 2 diabetes mellitus) Urinary retention with incomplete bladder emptying Osteoporosis Elevated liver enzymes Hypoglycemia Hyperparathyroidism Serum calcium elevated CKD stage 3 due to type 2 diabetes mellitus senior living (current) 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 Mother Pancreatic cancer Social History Household Members: Family Housing: Apartment Do you presently have visiting nurse or other home services: No Alcohol intake: current Alcohol intake frequency: holidays/special occasions only Patient Tobacco Use Status: Never used Tobacco e-Cigarette/Vaping Use: Never Used Second Hand Smoke Exposure: No Advance Directives Date on File: 02/04/20 service: No Current occupational status: unemployed Cognitive needs: No Hearing needs: No Vision needs: Yes Review of Systems Const Reports as per HPI Eyes Reports no additional complaints ENT Reports no additional complaints Card Reports as per HPI Resp Reports no additional complaints GI Reports as per [facility] Reports as per [facility] Musc Reports as per [facility] Neuro Reports as per [facility] Endo Details: patient reports she is diabetic Reports as per [facility] Stewart/Lymph Reports no additional complaints Aller/Immun Reports no additional complaints Physical Exam Const General: cooperative, healthy appearing, comfortable, no acute distress, well developed, alert and awake Orientation/consciousness: patient oriented x3 Limitations: ambulation with cane HEENT Head: Yes normal to inspection, Yes normocephalic and Yes atraumatic Ears: hearing grossly normal bilaterally Eyes General: appearance normal, both eyes and all related structures Neck Neck: Yes normal visual inspection and Yes trachea midline Chest Chest palpation & inspection: normal inspection of the chest Resp Effort & Inspection: normal respiratory effort and able to speak in complete sentences Cardio Rate: regular rate GI Inspection: Yes normal to inspection General: Yes no CVA tenderness Back/Spine/Pelvis Back: no CVA tenderness Skin General skin exam: no rashes or lesions noted Neuro General: patient oriented x3 Extrem General: Yes normal to inspection Psych Appearance: grossly normal and well kempt Mental Status: mental status grossly normal Speech and movement: Normal speech and movement present and Clear speech present Affect: normal affect Attitude: cooperative Thought process: Normal thought process present Thought content: Normal thought content present Insight: Fair insight present (Psych) Judgement: Fair judgement present (Psych) Office Procedures Post Void Residual Post Residual Void Post Void Residual (PVR): 19 [id number] Void Residual by ultrasound Results AMB Urinalysis, Automated UA Leukoctes 70 Antony/uL Last Edit by Radha Prince on 01/12/24 12:14 UA Nitrite Last Edit by Radha Prince on 01/12/24 12:14 UA Urobilinogen 0.2 mg/dL Last Edit by [employer] on 01/12/24 12:14 UA Protein 15 mg/dL Last Edit by Sipwisehardy Prince on 01/12/24 12:14 UA pH 6.0 Last Edit by Sipwisehardy Prince on 01/12/24 12:14 UA Blood 10 Ian/uL Last Edit by Sipwisehardy Prince on 01/12/24 12:14 UA Specific [place] 1.010 Last Edit by ZebMiddle Kingdom Studioshardy Prince on 01/12/24 12:14 UA Ketone Negative Last Edit by Radha Prince on 01/12/24 12:14 UA Bilirubin 0 mg/dL Last Edit by Radha Prince on 01/12/24 12:14 UA Glucose 0 mg/dL Last Edit by Radha Prince on 01/12/24 12:14 Results Reviewed Results Reviewed: Laboratory Last Values Urine pH (Auto) 6.0 01/12/24 12:12 Specific [place] (Auto) 1.010 01/12/24 12:12 Urine Protein (Auto) 15 mg/dL 01/12/24 12:12 Glucose (UA)(Auto) 0 mg/dL 01/12/24 12:12 Urine Ketones (Auto) Negative 01/12/24 12:12 Urine Blood (Auto) 10 Ian/uL 01/12/24 12:12 Urine Bilirubin (Auto) 0 mg/dL 01/12/24 12:12 Urine Urobilinogen (Auto) 0.2 mg/dL 01/12/24 12:12 Leukocyte Esterase (Auto) 70 Antony/uL 01/12/24 12:12 Assessment & Plan Assessment & Plan (1) Neurogenic bladder: Code(s): N31.9 - Neuromuscular dysfunction of bladder, unspecified Category: Medical (2) Urinary retention with incomplete bladder emptying: Code(s): R33.9 - Retention of urine, unspecified Category: Medical (3) Recurrent UTI: Code(s): N39.0 - Urinary tract infection, site not specified Category: Medical Plan In office urinalysis results reviewed with the patient today; as noted above. PVR 19 mL. We discussed further treatment options of recurrent urinary tract infections to include trial Estrace cream verses Vagifem. Discussed importance of completing antibiotic therapy as prescribed. Discussed importance of managing diabetes for improvement lower urinary tract symptoms as well as overall health and well-being. We discussed further workup to include imaging and labs however patient and daughter do not feel this is necessary at this time. Discussed UTI prevention with D mannose supplement, vitamin-C, increasing fluid intake, behavioral therapy with timed voiding, perineal hygiene and postcoital voiding, and management of constipation with stool softeners and increased fiber intake. Discussed follow-up in 3 months however patient does not feel this is necessary and would like to follow-up in 6 months. Follow-up in 6 months with PVR; or sooner with any issues, concerns, and or questions. Orders: Orders AMB Urinalysis Automated Today Z13.9 - Encounter for screening, unspecified AMB Post Void Residual by ultrasound Today N31.9 - Neuromuscular dysfunction of bladder, unspecified Patient Instructions: The patient had an opportunity to ask questions regarding the treatment plan. All questions were answered. Physical exam, labs, and imaging were discussed and reviewed in detail. As well as risks, benefits, and discussion of treatment choices. No major barriers to understanding were identified. The patient expressed understanding and agreement with the above treatment plan. The patient was made aware they should contact our office by phone for worsening of their current condition, the appearance of new symptoms, or with any questions or concerns. Compliance is encouraged with any medications and follow up testing that is ordered. It is a privilege to be allowed the opportunity to participate in? your urological care.? Again, if you have any questions or concerns If you have any questions or concerns please do not hesitate to contact me. The office is [phone]. This note is constructed using voice recognition software. While every effort has been made to ensure accuracy chain pegger errors may have been included. Yours sincerely, BRANDON Daniel Coding Level of Care Code Est Pt Level 3 (22242) Complex EM visit Add On G2211 Diagnoses Neurogenic bladder N31.9 Urinary retention with incomplete bladder emptying R33.9 Recurrent UTI N39.0 CPT Codes Post Residual Void - PVR CPT Code: 23918-Hfwn Void Residual by ultrasound ([id number])
== END 2024-01-12 12:11 | disposition home or self-care (01) ==
PROVIDERS: PCP Internal Medicine; Visit Provider Nurse Practitioner Family
DX: N31.9 Neuromuscular dysfunction of bladder, unspecified (principal); R33.9 Retention of urine, unspecified; N39.0 Urinary tract infection, site not specified; Z13.9 Encounter for screening, unspecified
CPT/HCPCS: 99213; G2211

== ENCOUNTER → 2024-01-12 11:28 | Outpatient (BNVA) | payer MEDICARE, MEDICAID, SELFPAY | PROVIDERS: PCP Internal Medicine; Visit Provider Nurse Practitioner Family | DX: N31.9 Neuromuscular dysfunction of bladder, unspecified (principal); R33.9 Retention of urine, unspecified; N39.0 Urinary tract infection, site not specified; N13.30 Unspecified hydronephrosis | CPT/HCPCS: 51798; 81003; 99212 ==

== ENCOUNTER 2024-02-03 13:15 | Outpatient (AMB) | payer MEDICARE, MEDICAID, SELFPAY ==
--- NOTE | 2024-02-03 14:01 | AM.OFFWIN_ITS ---
Intake Vital Signs 02/03/24 14:16 Height 4 ft 10 in Weight 134 lb BMI 28.0 BP 122/80 Blood Pressure Location Lt brachial Position Sitting Pulse 111 H Temp 100.5 F H Temp Source Oral Pulse Oximetry (%) 100 Oxygen Delivery Method Room Air Intake Visit Reasons: EP severe cough, weakness, lost of appetitie Intake Note: Patient here for severe cough, loss of appetite, vomiting due to coughing, weakness that started yesterday. Patient Tobacco Use Status: Never used Tobacco Allergies aspirin [ASPIRIN] Allergy (Severe, Verified 02/03/24 14:14) Swelling, rash fish derived [FISH] Allergy (Mild, Verified 02/03/24 14:14) Rash, Swelling Penicillins [PENICILLINS] Allergy (Unknown, Verified 02/03/24 14:14) Swelling Do you need a note to return to daycare/school/sports/work: No HPI HPI Comments History of Present Illness Details This is a 73-year-old female with a past medical history of hypertensi on, hyperlipidemia, insulin-dependent diabetes and chronic kidney disease presenting for evaluation of cough, weakness, decreased appetite and fevers. Patient's daughter, who is serving as an bench worker helper for this patient provides the HPI. Patient's cough started 2 days ago and her fever started yesterday. Patient is also complaining of mild lower abdominal pain but denies having any dysuria or urinary frequency. Patient denies having any recent sick contacts, otalgia, pharyngitis, nausea, vomiting, chest pain or diarrhea. [facility] Medical History Colonoscopy refused Abnormal SPEP Personal history of malignant neoplasm of uterus Subcutaneous mass T2DM (type 2 diabetes mellitus) Urinary retention with incomplete bladder emptying Osteoporosis Elevated liver enzymes Hypoglycemia Hyperparathyroidism Serum calcium elevated CKD stage 3 due to type 2 diabetes mellitus shelter (current) 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 Mother Pancreatic cancer Social History Household Members: Family Housing: Apartment Do you presently have visiting nurse or other home services: No Alcohol intake: current Alcohol intake frequency: holidays/special occasions only Patient Tobacco Use Status: Never used Tobacco e-Cigarette/Vaping Use: Never Used Second Hand Smoke Exposure: No Advance Directives Date on File: 02/04/20 service: No Current occupational status: unemployed Cognitive needs: No Hearing needs: No Vision needs: Yes Review of Systems Const All systems reviewed & are unremarkable except as noted in HPI and below Denies body aches, Denies chills, Reports fatigue, Reports fever(s) and Reports weakness Eyes Reports no additional complaints ENT Reports no additional complaints, Denies otalgia and Denies sore throat Card Reports no additional complaints, Denies chest pain and Denies dyspnea Resp Reports chest congestion, Reports cough, Denies hemoptysis and Denies dyspnea GI Reports no additional complaints and Reports abdominal pain (lower abdominal discomfort ) Reports no additional complaints and Denies dysuria Musc Reports no additional complaints Neuro Reports no additional complaints, Denies confusion and Reports weakness Psych Reports no additional complaints and Denies confusion Endo Reports fatigue Stewart/Lymph Reports no additional complaints Physical Exam Vital Signs: Last Vital Signs Temp 100.5 F H 02/03/24 14:16 Pulse 111 H 02/03/24 14:16 BP 122/80 02/03/24 14:16 Pulse Ox 100 02/03/24 14:16 Oxygen Delivery Method Room Air 02/03/24 14:16 BMI result Body Mass Index 28.0 Patient is febrile and tachycardic; will be given Acetaminophen here in the office Const General: cooperative, no acute distress, alert and awake; No confusion, diaphoretic or lethargic Nutritional Appearance: average body habitus Orientation/consciousness: patient oriented x3, No confusion and No lethargic Limitations: ambulation with walker HEENT Head: Yes normal to inspection and Yes normocephalic Ears: hearing grossly normal bilaterally, external ears normal, TM's normal bilaterally and EAC's normal General nose exam: Normal external nose present Face and sinus: Yes normal facial exam and Yes sinuses nontender Mouth: Normal oral and palatal mucosa present and moist mucous membranes Throat: Yes posterior oropharynx normal and No postnasal drainage Eyes General: appearance normal, both eyes and all related structures Neck Lymphatic: no lymphadenopathy noted Resp Effort & Inspection: normal respiratory effort, able to speak in complete sentences, normal respiratory pattern, Actively coughing and no respiratory distress Auscultation: diminished lung sounds (bases bilaterally right > left) Cardio Rate: tachycardic Rhythm: regular rhythm GI Other: mild suprapubic tenderness without guarding, no flank tenderness bilaterally Skin General skin exam: no rashes or lesions noted Neuro General: patient oriented x3 and No confusion Psych Appearance: grossly normal Mental Status: mental status grossly normal Insight: Good insight present (Psych) Judgement: Good judgement present (Psych) Results AMB Urinalysis, Automated UA Leukoctes 125 Antony/uL Last Edit by Osmin Blanc CCM on 02/03/24 15: 02 UA Nitrite Negative Last Edit by Osmin Blanc CCM on 02/03/24 15:02 UA Urobilinogen 0.2 mg/dL Last Edit by Osmin Blanc CCM on 02/03/24 15:02 UA Protein 30 mg/dL Last Edit by Osmin Blanc CCM on 02/03/24 15:02 UA pH 6.0 Last Edit by Osmin Blanc CCM on 02/03/24 15:02 UA Blood 10 Ian/uL Last Edit by Osmin Blanc CCM on 02/03/24 15:02 UA Specific [place] 1.010 Last Edit by Osmin Blanc CCM on 02/03/24 15:02 UA Ketone Negative Last Edit by Osmin Blanc CCM on 02/03/24 15:02 UA Bilirubin 0 mg/dL Last Edit by Osmin Blanc CCM on 02/03/24 15:02 UA Glucose 0 mg/dL Last Edit by Osmin Blanc [facility] on 02/03/24 15:02 Results Reviewed Results Reviewed: Urinalysis is reviewed. Positive for leukocytes, negative for nitrites, urine culture is pending at this time. No acute findings noted on chest x-ray, SARS testing is pending. Assessment & Plan Assessment & Plan (1) Cough with fever: Comment: Urine culture pending, no acute findings noted on preliminary read of chest x- ray. SARS panel is pending. Code(s): R05.9 - Cough, unspecified; R50.9 - Fever, unspecified Plan: Tylenol or ibuprofen as needed for fevers, OTC cough syrup as needed, increase clear fluids daily and monitor blood glucose at least 3 times daily. Orders: Orders UA and rflx microscopic Today R05.9 - Cough, unspecified, R50.9 - Fever, unspecified Urine Culture Today R50.9 - Fever, unspecified AMB Urinalysis Automated Today Z13.9 - Encounter for screening, unspecified SARS-CoV2/FLU/RSV Today J06.9 - Acute upper respiratory infection, unspecified AMB Acetaminophen Adult Dose Today R05.9 - Cough, unspecified, R50.9 - Fever, unspecified XR chest 2V Today R05.9 - Cough, unspecified, R50.9 - Fever, unspecified Medications: New acetaminophen 650 mg (2 x 325 mg) PO ONCE 2 tabs 0RF R05.9 - Cough, unspecified, R50.9 - Fever, unspecified Coding Level of Care Code Est Pt Level 4 (63613) Diagnoses Cough with fever R05.9; R50.9 Time Spent (min) 25
[2024-02-03 14:16] VITALS: BP 122/80; PULSE 111; TEMP 38.1; O2SAT 100; BMI 28.0
--- OUTSIDE RECORDS SUMMARY | 2024-02-10 14:23 | XMS_ITS | Clinical Summary ---
Author Organization Unknown Care Team Providers Care Brasswind Instrument Repairer Name Role Phone LAILA CONDE, KIN Unavailable Unavailable SANJAY PT, LUCIA Unavailable Unavailable Payers Payer Name Policy Type Policy Number Effective Date Expira tion Date [place]IC[place] [id number] Problems Condition Name Condition Details Condition Category Status Onset Date Resolution Date Last Treatment Date Treating Clinician Comments URINARY TRACT INFECTION, SITE NOT SPECIFIED Active 2021-03 00:00: 00 HEMIPLGA FOLLOWING CEREBRAL INFRC AFFECTING LEFT NONDOM SIDE Active 2021-03 00:00: 00 TYPE 2 DIABETES MELLITUS WITH HYPERGLYCEMI A Active 2021-03 00:00: 00 HYPERTENSIVE CHRONIC KIDNEY DISEASE W STG 1-4/UNSP CHR KDNY Active 2021-03 00:00: 00 TYPE 2 DIABETES MELLITUS W DIABETIC CHRONIC KIDNEY DISEASE Active 2021-03 00:00: 00 CHRONIC KIDNEY DISEASE, STAGE 3 UNSPECIFIED Active 2021-03 00:00: 00 ANEMIA IN CHRONIC KIDNEY DISEASE Active 2021-03 00:00: 00 VITAMIN B12 DEFICIENCY ANEMIA, UNSPECIFIED Active 2021-03 00:00: 00 TYPE 2 DIABETES MELLITUS WITH DIABETIC NEUROPATHY, UNSP Active 2021-03 00:00: 00 AGE-RELATED OSTEOPOROSIS W/O CURRENT PATHOLOGICAL FRACTURE Active 2021-03 00:00: 00 HYPERLIPIDEM IA, UNSPECIFIED Active 2021-03 00:00: 00 HYPERPARATHY ROIDISM, UNSPECIFIED Active 2021-03 00:00: 00 IRON DEFICIENCY ANEMIA, UNSPECIFIED Active 2021-03 00:00: 00 RETENTION OF URINE, UNSPECIFIED Active 2021-03 00:00: 00 VITAMIN D DEFICIENCY, UNSPECIFIED Active 2021-03 00:00: 00 [facility] (CURRENT) USE OF ANTITHROMBOT ICS/ANTIPLAT ELETS Active 2021-03 00:00: 00 [facility] (CURRENT) USE OF INSULIN Active 2021-03 00:00: 00 ACQUIRED ABSENCE OF BOTH CERVIX AND UTERUS Active 2021-03 00:00: 00 ACQUIRED ABSENCE OF OTHER ORGANS Active 2021-03 00:00: 00 PERSONAL HISTORY OF MALIGNANT NEOPLASM OF OTH PRT UTERUS Active 2021-03 00:00: 00 Allergies, Adverse Reactions, Alerts Allergy Name Allergy Type Status Severity Reaction(s) Onset Date Inactive Date Treating Clinician Comments PENICILLIN AND DERIVATIVES Propensity to adverse reactions Active 2021-03 06:43: 17 ASPIRIN RELATED MEDICATIONS Propensity to adverse reactions Active 2021-03 06:43: 30 FISH Propensity to adverse reactions Active 2021-03 06:43: 40 Medications Ordered Medication Name Filled Medication Name Start Date Stop Date Current Medication? Ordering Clinician Indication Dosage Frequency Signature (SIG) Comments Components nitrofurant oin monohydrate /macrocryst als 100 mg capsule 2021-03 00:00: 00 01-17 00:00 :00 No [id number] Per instruc tions Per instructio ns (route: oral) Med Classific ation: Genitouri nary Therapy furosemide 20 mg tablet 2021-03 00:00: 00 Yes [id number] 1 tablet DAILY 1 tablet DAILY (route: oral) Med Classific ation: Cardiovas cular Therapy Agents Novolog Flexpen U-100 Insulin aspart 100 unit/mL (3 [facility]-03 00:00: 00 Yes [id number] Per instruc tions DIRECTED Per instructio ns DIRECTED [facility] Med Classific ation: Endocrine levothyroxi ne 100 mcg tablet 2021-03 00:00: 00 Yes [id number] Per instruc tions DAILY Per instructio ns DAILY (route: oral) Med Classific ation: Endocrine atorvastati n 40 mg tablet 2021-03 00:00: 00 Yes [id number] 1 tablet DAILY 1 tablet DAILY (route: oral) Med Classific ation: Cardiovas cular Therapy Agents Calcium 500 500 mg calcium (1,250 mg) chewable tablet 2021-03 00:00: 00 Yes [id number] 1 tablet DAILY 1 tablet DAILY (route: oral) Med Classific ation: Electroly te Balance-N utritiona l Products clopidogrel 75 mg tablet 2021-03 00:00: 00 Yes [id number] 1 tablet DAILY 1 tablet DAILY (route: oral) Med Classific ation: Hematolog ical Agents methenamine mandelate 1 gram tablet 2021-03 00:00: 00 Yes [id number] 1 tablet DAILY 1 tablet DAILY (route: oral) Med Classific ation: Genitouri nary Therapy metoprolol succinate ER 25 mg tablet,exte nded release 24 hr 2021-03 00:00: 00 Yes [id number] 1 tablet DAILY 1 tablet DAILY (route: oral) Med Classific ation: Cardiovas cular Therapy Agents omeprazole 20 mg capsule,del ayed release 2021-03 00:00: 00 Yes [id number] 1 capsule DAILY 1 capsule DAILY (route: oral) Med Classific ation: Gastroint estinal Therapy Agents Tresiba FlexTouch U-200 insulin 200 unit/mL (3 mL) subcutaneou s pen 2021-03 00:00: 00 Yes [id number] 16 unit EVERY AM 16 unit EVERY AM (route: subcutaneo us) Med Classific ation: Endocrine Vitamin B-12 500 mcg tablet 2021-03 00:00: 00 Yes [id number] 1 tablet DAILY 1 tablet DAILY (route: oral) Med Classific ation: Electroly te Balance-N utritiona l Products Vital Signs Vital Name Observation Time Observation Value Commen ts Temperature 2022-03-07 13:27:00.000 98.2 [degF] Temperature 2022-02-20 14:45:00.000 97.6 [degF] Temperature 2022-02-13 13:07:00.000 97.6 [degF] Temperature 2022-02-11 13:18:00.000 97.3 [degF] Temperature 2022-02-07 12:19:00.000 97.6 [degF] Temperature 2022-02-04 15:03:00.000 97.6 [degF] Temperature 2022-01-31 15:57:00.000 98.1 [degF] Temperature 2022-01-29 13:41:00.000 97.6 [degF] Temperature 2022-01-23 12:40:00.000 98.1 [degF] Temperature 2022-01-17 14:25:00.000 98.1 [degF] Pulse 2022-03-07 13:27:00.000 74 /min Pulse 2022-02-20 14:45:00.000 73 /min Pulse 2022-02-13 13:07:00.000 74 /min Pulse 2022-02-11 13:18:00.000 72 /min Pulse 2022-02-07 12:19:00.000 72 /min Pulse 2022-02-04 15:03:00.000 76 /min Pulse 2022-01-31 15:57:00.000 78 /min Pulse 2022-01-29 13:41:00.000 74 /min Pulse 2022-01-23 12:40:00.000 75 /min Pulse 2022-01-17 14:25:00.000 77 /min Respirations 2022-03-07 13:27:00.000 18 /min Respirations 2022-02-20 14:45:00.000 18 /min Respirations 2022-02-13 13:07:00.000 18 /min Respirations 2022-02-11 13:18:00.000 18 /min Respirations 2022-02-07 12:19:00.000 18 /min Respirations 2022-02-04 15:03:00.000 18 /min Respirations 2022-01-31 15:57:00.000 18 /min Respirations 2022-01-29 13:41:00.000 18 /min Respirations 2022-01-23 12:40:00.000 18 /min Respirations 2022-01-17 14:25:00.000 18 /min Systolic Blood Pressure 2022-03-07 13:27:00.000 126 mm [Hg] Systolic Blood Pressure 2022-02-20 14:45:00.000 125 mm [Hg] Systolic Blood Pressure 2022-02-13 13:07:00.000 126 mm [Hg] Systolic Blood Pressure 2022-02-11 13:18:00.000 130 mm [Hg] Systolic Blood Pressure 2022-02-07 12:19:00.000 132 mm [Hg] Systolic Blood Pressure 2022-02-04 15:03:00.000 136 mm [Hg] Systolic Blood Pressure 2022-01-31 15:57:00.000 143 mm [Hg] Systolic Blood Pressure 2022-01-29 13:41:00.000 138 mm [Hg] Systolic Blood Pressure 2022-01-23 12:40:00.000 140 mm [Hg] Systolic Blood Pressure 2022-01-17 14:25:00.000 142 mm [Hg] Diastolic Blood Pressure 2022-03-07 13:27:00.000 70 mm [Hg] Diastolic Blood Pressure 2022-02-20 14:45:00.000 70 mm [Hg] Diastolic Blood Pressure 2022-02-13 13:07:00.000 72 mm [Hg] Diastolic Blood Pressure 2022-02-11 13:18:00.000 75 mm [Hg] Diastolic Blood Pressure 2022-02-07 12:19:00.000 70 mm [Hg] Diastolic Blood Pressure 2022-02-04 15:03:00.000 70 mm [Hg] Diastolic Blood Pressure 2022-01-31 15:57:00.000 70 mm [Hg] Diastolic Blood Pressure 2022-01-29 13:41:00.000 68 mm [Hg] Diastolic Blood Pressure 2022-01-23 12:40:00.000 66 mm [Hg] Diastolic Blood Pressure 2022-01-17 14:25:00.000 65 mm [Hg] Plan of Treatment Planned Activity Planned Date Details Comments Future Scheduled Test PHYSICAL T HERAPIST TO EVALUATE PATIENT SECONDARY TO FUNCTIONAL DEFICITS/SAFETY CONCERNS. [code = PHYSICAL THERAPIST TO EVALUATE PATIENT SECONDARY TO FUNCTIONAL DEFICITS/SAFETY CONCERNS.] Future Scheduled Test PHYSICAL T HERAPIST TO ASSESS BEST PRACTICE INTERVENTIONS TO ASSIST PATIENTS TO IMPROVE OR STABILIZE MEDICAL STATUS AND PREVENT RE-HOSPITALIZATION. MEASURES INCLUDING REVIEW AND IDENTIFICATION OF CONCERNS FOR THE FOLLOWING AREAS: DEPRESSION, DRUG REGIMEN, DIABETIC FOOT CARE, ENVIRONMENTAL SAFETY ISSUES AND FALLS, PRESSURE ULCERS, PAIN, AND DISEASE MANAGEMENT. [code = PHYSICAL THERAPIST TO ASSESS BEST PRACTICE INTERVENTIONS TO ASSIST PATIENTS TO IMPROVE OR STABILIZE MEDICAL STATUS AND PREVENT RE-HOSPITALIZATION. MEASURES INCLUDING REVIEW AND IDENTIFICATION OF CONCERNS FOR THE FOLLOWING AREAS: DEPRESSION, DRUG REGIMEN, DIABETIC FOOT CARE, ENVIRONMENTAL SAFETY ISSUES AND FALLS, PRESSURE ULCERS, PAIN, AND DISEASE MANAGEMENT.] Future Scheduled Test PHYSICAL T HERAPY TO ESTABLISH /UPGRADE/DOWNGRADE THERAPEUTIC EXERCISE PROGRAM AND INSTRUCT PATIENT/CAREGIVER ON EXERCISE PRECAUTIONS WITH WRITTEN HOME PROGRAM. MAY INCLUDE PROM, AAROM, AROM, RROM APPROPRIATE TO IMPROVE FUNCTIONAL STRENGTH AND RANGE OF MOTION. [code = PHYSICAL THERAPY TO ESTABLISH /UPGRADE/DOWNGRADE THERAPEUTIC EXERCISE PROGRAM AND INSTRUCT PATIENT/CAREGIVER ON EXERCISE PRECAUTIONS WITH WRITTEN HOME PROGRAM. MAY INCLUDE PROM, AAROM, AROM, RROM APPROPRIATE TO IMPROVE FUNCTIONAL STRENGTH AND RANGE OF MOTION.] Future Scheduled Test PHYSICAL T HERAPY TO INSTRUCT PATIENT/CAREGIVER ON SAFE TRANSFER TECHNIQUES USING PROPER BODY MECHANICS AND EQUIPMENT. [code = PHYSICAL THERAPY TO INSTRUCT PATIENT/CAREGIVER ON SAFE TRANSFER TECHNIQUES USING PROPER BODY MECHANICS AND EQUIPMENT.] Future Scheduled Test PHYSICAL T HERAPY TO INSTRUCT PATIENT/CAREGIVER ON GAIT TRAINING TECHNIQUES USING APPROPRIATE ASSISTIVE DEVICE, PROPER BODY MECHANICS TO IMPROVE MOBILITY, AND PREVENT INJURY OF PATIENT AND/OR CAREGIVER. [code = PHYSICAL THERAPY TO INSTRUCT PATIENT/CAREGIVER ON GAIT TRAINING TECHNIQUES USING APPROPRIATE ASSISTIVE DEVICE, PROPER BODY MECHANICS TO IMPROVE MOBILITY, AND PREVENT INJURY OF PATIENT AND/OR CAREGIVER.] Future Scheduled Test PHYSICAL T HERAPY TO ASSESS AND RECOMMEND HOME SAFETY ADAPTATIONS AND EDUCATE PATIENT /CAREGIVER ON FALL PREVENTION STRATEGIES. [code = PHYSICAL THERAPY TO ASSESS AND RECOMMEND HOME SAFETY ADAPTATIONS AND EDUCATE PATIENT /CAREGIVER ON FALL PREVENTION STRATEGIES.] Future Scheduled Test PHYSICAL T HERAPY ADMISSION 01/17/22 THE PATIENT IS RECEIVING HOMECARE DUE TO NEW ONSET/EXACERBATION OF: PATIENT'S DAUGHTER TOOK HER TO [facility] TO WORSENING LEFT-SIDED WEAKNESS AND CONFUSION. PATIENT WAS DIAGNOSED WITH UTI AND TREATED WITH ANTIBIOTICS. NEW CVA WAS RULED OUT RECENT HOSPITALIZATION/INPATIENT ADMISSION RELATED TO: WORSENING OF LEFT LOWER EXTREMITY WEAKNESS NEW OR CHANGED MEDICATIONS PERTINENT TO THE PLAN OF CARE: NONE PATIENT LIVING SITUATION/CAREGIVER STATUS: PATIENT LIVES WITH HER ADULT DAUGHTER IN A BASEMENT APARTMENT WITH HER . PATIENT'S DAUGHTER IS HER PRIMARY CAREGIVER RECENT FALLS: PATIENT'S DAUGHTER REPORTS THAT SHE HAS FALLEN TWO OR THREE TIMES WITHOUT INJURY OVER THE PAST MONTH INDICATE REASON THAT THE SKILLS OF A THERAPIST ARE REQUIRED TO ACHIEVE THE ESTABLISHED GOALS: CONTINUED PHYSICAL THERAPY IS REQUIRED TO DEVELOP AND EDUCATE PATIENT AND CAREGIVER ON APPROPRIATE HOME PROGRAM. TO IMPROVE DYNAMIC BALANCE, TO IMPROVE TRANSFERS AND AMBULATION TO IMPROVE HER ABILITY TO FUNCTION INDEPENDENTLY AND SAFELY ADDITIONAL DISCIPLINES NEEDED OR DECLINED ORDERED SERVICES: NONE PATIENT IS A 71-YEAR-OLD FEMALE REFERRED TO HOME PHYSICAL THERAPY AFTER HER DAUGHTER TOOK HER TO THE [facility] TO WORSENING LEFT SIDED WEAKNESS AND CONFUSION. PATIENT HAS A HISTORY OF CVA IN 2005 AND 2 TO 3 TIAS SINCE THEN. THE HOSPITAL RULED OUT NEW CVA AND FOUND SHE HAD A UTI WHICH WAS TREATED WITH ANTIBIOTICS FOR 7 DAYS. PAST MEDICAL HISTORY INCLUDES CKD, CVA, TYPE 2 DIABETES, DIABETIC NEUROPATHY, VITAMIN B12 DEFICIENCY, UTERINE FIBROIDS, HYPERTENSION, HYPERLIPIDEMIA, HYPERPARATHYROIDISM, HYPOGLYCEMIC, HYPOTHYROIDISM, ANEMIA, OSTEOPOROSIS, HISTORY OF MALIGNANT NEOPLASM OF HER UTERUS. CURRENTLY PATIENT AMBULATES WITH WALKER AND CLOSE SUPERVISION WITH VERBAL CUES TO PROMOTE IMPROVED POSTURE AND LONGER STRIDES. PATIENT REQUIRES CLOSE SUPERVISION FOR SIT TO STAND TRANSFERS WITH VERBAL CUES TO PROMOTE BETTER WEIGHT SHIFT OVER BASE OF SUPPORT. PATIENT REQUIRED CONTACT GUARD ASSIST TO NEGOTIATE ONE FLIGHT OF STAIRS TO ENTER AND EXIT HOME WITH SIGNIFICANT VERBAL CUES FOR CORRECT SEQUENCING. PATIENT IS CONSIDERED A HIGH FALL RISK EVIDENT BY HER TUG SCORE OF 25 SECONDS USING WALKER. PATIENT WILL BENEFIT FROM CONTINUED PHYSICAL THERAPY SECONDARY TO THE ABOVE DEFICIT WHICH LIMIT HER ABILITY TO FUNCTION SAFELY INSIDE AND OUTSIDE OF HER HOME MAKING HER HOMEBOUND. PATIENT IS EAGER TO IMPROVE HER LEVEL OF FUNCTION AND WAS AN ACTIVE PART [code = PHYSICAL THERAPY ADMISSION 01/17/22 THE PATIENT IS RECEIVING HOMECARE DUE TO NEW ONSET/EXACERBATION OF: PATIENT'S DAUGHTER TOOK HER TO [facility] TO WORSENING LEFT-SIDED WEAKNESS AND CONFUSION. PATIENT WAS DIAGNOSED WITH UTI AND TREATED WITH ANTIBIOTICS. NEW CVA WAS RULED OUT RECENT HOSPITALIZATION/INPATIENT ADMISSION RELATED TO: WORSENING OF LEFT LOWER EXTREMITY WEAKNESS NEW OR CHANGED MEDICATIONS PERTINENT TO THE PLAN OF CARE: NONE PATIENT LIVING SITUATION/CAREGIVER STATUS: PATIENT LIVES WITH HER ADULT DAUGHTER IN A BASEMENT APARTMENT WITH HER . PATIENT'S DAUGHTER IS HER PRIMARY CAREGIVER RECENT FALLS: PATIENT'S DAUGHTER REPORTS THAT SHE HAS FALLEN TWO OR THREE TIMES WITHOUT INJURY OVER THE PAST MONTH INDICATE REASON THAT THE SKILLS OF A THERAPIST ARE REQUIRED TO ACHIEVE THE ESTABLISHED GOALS: CONTINUED PHYSICAL THERAPY IS REQUIRED TO DEVELOP AND EDUCATE PATIENT AND CAREGIVER ON APPROPRIATE HOME PROGRAM. TO IMPROVE DYNAMIC BALANCE, TO IMPROVE TRANSFERS AND AMBULATION TO IMPROVE HER ABILITY TO FUNCTION INDEPENDENTLY AND SAFELY ADDITIONAL DISCIPLINES NEEDED OR DECLINED ORDERED SERVICES: NONE PATIENT IS A 71-YEAR-OLD FEMALE REFERRED TO HOME PHYSICAL THERAPY AFTER HER DAUGHTER TOOK HER TO THE [facility] TO WORSENING LEFT SIDED WEAKNESS AND CONFUSION. PATIENT HAS A HISTORY OF CVA IN 2005 AND 2 TO 3 TIAS SINCE THEN. THE HOSPITAL RULED OUT NEW CVA AND FOUND SHE HAD A UTI WHICH WAS TREATED WITH ANTIBIOTICS FOR 7 DAYS. PAST MEDICAL HISTORY INCLUDES CKD, CVA, TYPE 2 DIABETES, DIABETIC NEUROPATHY, VITAMIN B12 DEFICIENCY, UTERINE FIBROIDS, HYPERTENSION, HYPERLIPIDEMIA, HYPERPARATHYROIDISM, HYPOGLYCEMIC, HYPOTHYROIDISM, ANEMIA, OSTEOPOROSIS, HISTORY OF MALIGNANT NEOPLASM OF HER UTERUS. CURRENTLY PATIENT AMBULATES WITH WALKER AND CLOSE SUPERVISION WITH VERBAL CUES TO PROMOTE IMPROVED POSTURE AND LONGER STRIDES. PATIENT REQUIRES CLOSE SUPERVISION FOR SIT TO STAND TRANSFERS WITH VERBAL CUES TO PROMOTE BETTER WEIGHT SHIFT OVER BASE OF SUPPORT. PATIENT REQUIRED CONTACT GUARD ASSIST TO NEGOTIATE ONE FLIGHT OF STAIRS TO ENTER AND EXIT HOME WITH SIGNIFICANT VERBAL CUES FOR CORRECT SEQUENCING. PATIENT IS CONSIDERED A HIGH FALL RISK EVIDENT BY HER TUG SCORE OF 25 SECONDS USING WALKER. PATIENT WILL BENEFIT FROM CONTINUED PHYSICAL THERAPY SECONDARY TO THE ABOVE DEFICIT WHICH LIMIT HER ABILITY TO FUNCTION SAFELY INSIDE AND OUTSIDE OF HER HOME MAKING HER HOMEBOUND. PATIENT IS EAGER TO IMPROVE HER LEVEL OF FUNCTION AND WAS AN ACTIVE PART] Goal 2022-03-07 Patient Goal - T O GET STRONGER AND WALK BETTER Goal Provider Goal - PHYSICAL THERAPY EVALUATION TO BE COMPLETED WITH RECOMMENDATIONS AND/OR WRITTEN TREATMENT PLAN OF CARE ESTABLISHED FOR THE PHYSICIANS SIGNATURE Goal Provider Goal - PATIENT/CAREGIVER VERBALIZES UNDERSTANDING OF THE INITIAL BEST PRACTICE RECOMMENDATIONS. PHYSICIAN TO BE NOTIFIED APPROPRIATE FOR ANY CHANGES OR COMPLICATIONS. Goal Provider Goal - PATIENT/CAREGIVER WILL PERFORM THERAPEUTIC EXERCISE/S AND DEMONSTRATE PARTICIPATION IN A HOME PROGRAM TO IMPROVE FUNCTION Goal Provider Goal - PATIENT/CAREGIVER WILL DEMONSTRATE SAFE TRANSFERS USING APPROPRIATE ASSISTIVE DEVICE, BODY MECHANICS AND EQUIPMENT TO IMPROVE FUNCTION Goal Provider Goal - PATIENT/CAREGIVER WILL DEMONSTRATE IMPROVED GAIT TECHNIQUES TO MINIMIZE RISK OF INJURY AND INCREASE FUNCTION Goal Provider Goal - PATIENT/CAREGIVER WILL DEMONSTRATE/VERBALIZE UNDERSTANDING OF RECOMMENDATIONS TO INCREASE SAFETY IN THE HOME AND FALL PREVENTION TO IMPROVE FUNCTION Goal Provider Goal - A PLAN OF CARE WILL BE ESTABLISHED THAT MEETS PATIENT'S SKILLED NEEDS AND INCLUDES PATIENT GOAL FOR HOME HEALTH. Reason for Visit INDEPENDENT IN THE HOME Encounters Start Date/Time End Date/Time Encounter Type Admission Type Attending [facility] Care Facility Care Department Encounter ID Discharge Date Discharge Status Discharge Condition Discharge Reason Percent Goals Met 2022-01-17 00:00:00 2022-03-07 00:00:00 Outpatient NEW ADMISSION LUCIA [facility] [id number] [id number] 00:00:00 DISCHARGE TO HOME OR SELF CARE INDEPENDEN T IN THE HOME GOALS MET ( ONLY) 100.00
== END 2024-02-03 15:47 | disposition home or self-care (01) ==
PROVIDERS: PCP Internal Medicine; Visit Provider Physician Assistant
DX: R05.9 Cough, unspecified (principal); R50.9 Fever, unspecified; Z13.9 Encounter for screening, unspecified

== ENCOUNTER 2024-02-03 13:15 | Outpatient (REF) | payer MEDICARE, MEDICAID, SELFPAY ==
--- NOTE | ~2024-02-03 | XR_ITS ---
EXAMINATION: XR CHEST CLINICAL INFORMATION: Cough, unspecified R05.9. COMPARISON: XR Chest 01/09/2024 TECHNIQUE: 2 views of the chest were obtained. FINDINGS: The cardiomediastinal silhouette is within normal limits. The lungs are well expanded. There is no focal consolidation, edema, or effusion. No pneumothorax. No acute osseous abnormality. Spondylosis in the visualized spine.. XR/XR chest 2V IMPRESSION: No evidence of acute cardiopulmonary process. Study is assigned/presented to me for interpretation on Mar 17, 2024 Electronically signed by: Fabricio Hardwick MD 03/17/2024 11:43 AM [facility]
[2024-02-03 16:25] LABS: Appearance Urine Cloudy; Color Urine Yellow; Glucose Urine UA 500 mg/dL (Negative); Leukocyte Esterase Urine Large (3+) (Negative); Nitrite Urine Negative (Negative); Specific Gravity - Urine 1.015 (1.005-1.025); UMIC TRIGGER UA YES; Urine Blood Small (1+) (Negative); Urine Ketones Negative (Negative); Urine Protein 30 (1+) mg/dL (Neg-Trace)
[2024-02-03 16:45] LABS: Bacteria Urine None Seen (None Seen); Hyaline Casts Urine 0-2 /LPF (0-2); RBC Urine 0-2 /HPF (0-2); WBC Clumps Urine Present; WBC Urine >50 /HPF (0-5)
[2024-02-03 17:37] LABS: Influenza A PCR NEGATIVE (Negative); Influenza B PCR NEGATIVE (Negative); Resp Syncy Virus RNA Qual PCR NEGATIVE (Negative); SARS COV2 PCR INHOUSE NEGATIVE (Negative)
--- OUTSIDE RECORDS SUMMARY | 2024-02-10 15:01 | XMS_ITS | Clinical Summary ---
Author Organization Unknown Care Team Providers Care Test Evaluator Name Role Phone LAILA CONDE, KIN Unavailable Unavailable SANJAY PT, LUCIA Unavailable Unavailable Payers Payer Name Policy Type Policy Number Effective Date Expira tion Date [place] [id number] Problems Condition Name Condition Details Condition Category [...] D DEFICIENCY, UNSPECIFIED Active 2021-03 00:00: 00 [facility] (CURRENT) USE OF ANTITHROMBOT ICS/ANTIPLAT ELETS Active 2021-03 00:00: 00 [facility] (CURRENT) USE OF INSULIN Active 2021-03 00:00: [...] 2021-03 00:00: 00 01-17 00:00 :00 No [id number] Per instruc tions Per instructio ns (route: oral) Med Classific ation: Genitouri nary Therapy furosemide 20 mg tablet 2021-03 00:00: 00 Yes [id number] 1 tablet DAILY 1 tablet DAILY (route: oral) Med Classific ation: Cardiovas cular Therapy Agents Novolog Flexpen U-100 Insulin aspart 100 unit[facility]-03 00:00: 00 Yes [id number] Per instruc tions DIRECTED [facility] instructio ns [facility] Med Classific ation: Endocrine levothyroxi ne 100 mcg tablet 2021-03 00:00: 00 Yes [id number] Per instruc tions DAILY Per instructio ns DAILY (route: oral) Med Classific ation: Endocrine atorvastati n 40 mg tablet 2021-03 00:00: 00 Yes [id number] 1 tablet DAILY 1 tablet DAILY (route: oral) Med Classific ation: Cardiovas cular Therapy Agents Calcium 500 500 mg calcium (1,250 mg) chewable tablet 2021-03 00:00: 00 Yes [id number] 1 tablet DAILY 1 tablet DAILY (route: oral) Med Classific ation: Electroly te Balance-N utritiona l Products clopidogrel 75 mg tablet 2021-03 00:00: 00 Yes [id number] 1 tablet DAILY 1 tablet DAILY (route: oral) Med Classific ation: Hematolog ical Agents methenamine mandelate 1 gram tablet 2021-03 00:00: 00 Yes [id number] 1 tablet DAILY 1 tablet DAILY (route: oral) Med Classific ation: Genitouri nary Therapy metoprolol succinate ER 25 mg tablet,exte nded release 24 hr 2021-03 00:00: 00 Yes [id number] 1 tablet DAILY 1 tablet DAILY (route: oral) Med Classific ation: Cardiovas cular Therapy Agents omeprazole 20 mg capsule,del ayed release 2021-03 00:00: 00 Yes [id number] 1 capsule DAILY 1 capsule DAILY (route: oral) Med Classific ation: Gastroint estinal Therapy Agents Tresiba FlexTouch U-200 insulin 200 unit/mL (3 mL) subcutaneou s pen 2021-03 00:00: 00 Yes [id number] 16 unit EVERY AM 16 unit EVERY AM (route: subcutaneo us) Med Classific ation: Endocrine Vitamin B-12 500 mcg tablet 2021-03 00:00: 00 Yes [id number] 1 tablet DAILY 1 tablet DAILY (route: [...] Date/Time Encounter Type Admission Type Attending [facility] Care Facility Care Department Encounter ID Discharge Date Discharge Status Discharge Condition Discharge Reason Percent Goals Met 2022-01-17 00:00:00 2022-03-07 00:00:00 Outpatient NEW ADMISSION LUCIA [facility] [id number] 8200-01-05 00:00:00 DISCHARGE TO HOME OR SELF CARE INDEPENDEN T IN THE HOME GOALS MET ( ONLY) 100.00
--- OUTSIDE RECORDS SUMMARY | 2024-02-10 15:01 | XMS_ITS | Clinical Summary ---
Author Organization Unknown Care Team Providers Care Glass Presser Name Role Phone LAILA CONDE, KIN Unavailable Unavailable SANJAY PT, LUCIA Unavailable Unavailable Payers Payer Name Policy Type Policy Number Effective Date Expira tion Date [place] [id number] Problems Condition Name Condition Details Condition Category [...] D DEFICIENCY, UNSPECIFIED Active 2021-03 00:00: 00 [facility] (CURRENT) USE OF ANTITHROMBOT ICS/ANTIPLAT ELETS Active 2021-03 00:00: 00 [facility] (CURRENT) USE OF INSULIN Active 2021-03 00:00: [...] 2021-03 00:00: 00 01-17 00:00 :00 No [id number] Per instruc tions Per instructio ns (route: oral) Med Classific ation: Genitouri nary Therapy furosemide 20 mg tablet 2021-03 00:00: 00 Yes [id number] 1 tablet DAILY 1 tablet DAILY (route: oral) Med Classific ation: Cardiovas cular Therapy Agents Novolog Flexpen U-100 Insulin aspart 100 unit[facility]mL (3 [facility] 2021-03 00:00: 00 Yes [id number] Per instruc tions DIRECTED Per instructio ns DIRECTED (route: [facility]) Med Classific ation: Endocrine levothyroxi ne 100 mcg tablet 2021-03 00:00: 00 Yes [id number] Per instruc tions DAILY Per instructio ns DAILY (route: oral) Med Classific ation: Endocrine atorvastati n 40 mg tablet 2021-03 00:00: 00 Yes [id number] 1 tablet DAILY 1 tablet DAILY (route: oral) Med Classific ation: Cardiovas cular Therapy Agents Calcium 500 500 mg calcium (1,250 mg) chewable tablet 2021-03 00:00: 00 Yes [id number] 1 tablet DAILY 1 tablet DAILY (route: oral) Med Classific ation: Electroly te Balance-N utritiona l Products clopidogrel 75 mg tablet 2021-03 00:00: 00 Yes [id number] 1 tablet DAILY 1 tablet DAILY (route: oral) Med Classific ation: Hematolog ical Agents methenamine mandelate 1 gram tablet 2021-03 00:00: 00 Yes [id number] 1 tablet DAILY 1 tablet DAILY (route: oral) Med Classific ation: Genitouri nary Therapy metoprolol succinate ER 25 mg tablet,exte nded release 24 hr 2021-03 00:00: 00 Yes [id number] 1 tablet DAILY 1 tablet DAILY (route: oral) Med Classific ation: Cardiovas cular Therapy Agents omeprazole 20 mg capsule,del ayed release 2021-03 00:00: 00 Yes [id number] 1 capsule DAILY 1 capsule DAILY (route: oral) Med Classific ation: Gastroint estinal Therapy Agents Tresiba FlexTouch U-200 insulin 200 unit/mL (3 mL) subcutaneou s pen 2021-03 00:00: 00 Yes [id number] 16 unit EVERY AM 16 unit EVERY AM (route: subcutaneo us) Med Classific ation: Endocrine Vitamin B-12 500 mcg tablet 2021-03 00:00: 00 Yes [id number] 1 tablet DAILY 1 tablet DAILY (route: [...] End Date/Time Encounter Type Admission Type Attending [facility] Care Facility Care Department Encounter ID Discharge Date Discharge Status Discharge Condition Discharge Reason Percent Goals Met 2022-01-17 00:00:00 2022-03-07 00:00:00 Outpatient NEW ADMISSION LUCIA [facility] [id number] 00:00:00 DISCHARGE TO HOME OR SELF CARE INDEPENDEN T IN THE HOME GOALS MET ( ONLY) 100.00
== END 2024-02-03 13:16 | disposition home or self-care (01) ==
LOC: HO.HMGCX 13:15
PROVIDERS: PCP Internal Medicine; Visit Provider Physician Assistant
DX: R50.9 Fever, unspecified (principal); R05.9 Cough, unspecified; J06.9 Acute upper respiratory infection, unspecified
CPT/HCPCS: 0241U; 71046; 81001; 81003; 87086; 87088; 87186; 99212

== ENCOUNTER 2024-03-10 11:13 | Outpatient (AMB) | payer MEDICARE, MEDICAID, SELFPAY ==
--- NOTE | 2024-03-10 07:35 | A.OFFVIS_ITS ---
Vital Signs 03/10/24 11:18 Height 4 ft 10 in Weight 136 lb 10.986 oz BMI 28.6 BP 116/78 Blood Pressure Location Rt brachial Position Sitting Pulse 74 Pulse Source Pulse Oximeter Intake Visit Reasons: DM Intake Note: Patient presents today for a follow-up Type 2 Diabetes Mellitus: Last Diabetic eye exam was on: DUE Last Podiatry exam was on: DR. Mitul Sanchez, 10/01/2023 Most recent HbA1c: 8.2%, 01/07/2024 Random Glucose- 146 mg/dL, Today Rail Signal Mechanic Required: Yes Rail Signal Mechanic Services: Rail Signal Mechanic Offered & Declined Accompanied by: Daughter Allergies aspirin [ASPIRIN] Allergy (Severe, Verified 02/03/24 14:14) Swelling, rash fish derived [FISH] Allergy (Mild, Verified 02/03/24 14:14) Rash, Swelling Penicillins [PENICILLINS] Allergy (Unknown, Verified 02/03/24 14:14) Swelling Medication List - Last Reconciled 03/10/24 by Debby Moyer NP acetaminophen 650 mg PO Q6H PRN ascorbate calcium (vitamin C) 500 mg PO DAILY 90 days atorvastatin 40 mg PO DAILY [Bedside commode As directed] blood sugar diagnostic (FreeStyle Lite Strips) As directed three times a day blood-glucose meter (FreeStyle Lite Meter kit) As directed 4x/day cholecalciferol (vitamin D3) 50 mcg PO DAILY 30 days ciprofloxacin HCl (Cipro) 250 mg PO Q12H clopidogrel 75 mg PO DAILY cyanocobalamin (vitamin B-12) (Vitamin B-12) 1,000 mcg PO DAILY flash glucose sensor (FreeStyle Angela 2 Sensor kit) Once every 14 days furosemide 20 mg PO DAILY insulin glargine (Lantus Solostar U-100 Insulin) 30 units (0.3 mL) subcut DAILY insulin lispro subcutaneously 3 times a day; 100-150 10 units, 151-200 12 units, 201-250 12 units >250 14 units lancets As directed lansoprazole 30 mg PO DAILY levothyroxine 88 mcg PO DAILY metoprolol succinate ER 25 mg PO BID nitrofurantoin monohyd/m-cryst 100 mg 100 mg PO Q12H 5 days pen needle, diabetic (BD Denisa 2nd Gen Pen Needle) USE DIRECTED FOUR TIMES DAILY [raised toilet seat with arms As directed] [Shower chair with arms As directed] [walker with seat and breaks As directed] HPI Comments Details: 73 YO F with PMHx T2DM, Osteoporosis and hyperprathyroidism who is seen in F/U for T2DM. She was last seen by myself 11/06/2023 for diabetes at which time her sliding scale coverage for meals was increased to lower sugars postprandial. She was last seen by Dr. Ferrell 01/07/2024 for osteoporosis status post 1-1/2 years of treatment of Prolia with subsequent normal bone density. She was released for osteoporosis to the care of her primary care provider with recommendations to obtain a bone density in 2 years. Hemoglobin A1c 01/07/24 8.2 % 11/05/23 9.2%. Initially diagnosed with T2DM in 1989. Was initially started on treatment with Metformin. This was stopped due to CKD Stage III. GLP-1 contraindicated due to family history of pancreatic cancer. Took Trulicity a few yrs ago but stopped for unclear reasons Current regimen Lantus 30 units qAM and Humalog sliding scale insulin lispro subcutaneously 3 times a day; 100-150 10 units, 151-200 12 units, 201-250 12 units >250 14 units Freestyle angela sensor 3 average glucose: 163 14 day continuous glucose sensor report reviewed Glucose Management indicator 7.2 % Time CGM active Whitley Martinez CDE % TIme in ranges: Ten % very high (above 250) 23 % high (181-250) 67 % in range (70-180] 0 % low (69-55) o % very low (below 54) [33.1 ] Glucose variability [ ] (target <36%) Interpretation of CGMS [readings consistently in good range ] Treats lows with juice. Checks sugar after to ensure it is rising. No recent lows. Daughter reports she has gum with her times Family history of T2DM in her parents. Has eyes checked yearly, 1 year ago, Needs to make appt, denies retinopathy. Daughter to make appt Has neuropathy, sees podiatry every 2 months consistent with this but needs to find new research microbiologist Daughter will call us with name of research microbiologist for referral Follows with Nephrology. Stable with improved EGFR. UAC 115.8 06/12/2022 most recent CR done 01/07/24 1.88 down from 2.35 Last seen several months ago with follow up scheduled in 4 months Has HLD, on Atorvastatin 40 mg PO daily. Last LDL 69 01/07/24 Denies CAD. Diet: Does not follow a low carb diet. Weight: Stable. Had diabetes education. 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 Mother Pancreatic cancer Social History Household Members: Family Housing: Apartment Do you presently have visiting nurse or other home services: No Alcohol intake: current Alcohol intake frequency: holidays/special occasions only Patient Tobacco Use Status: Never used Tobacco e-Cigarette/Vaping Use: Never Used Second Hand Smoke Exposure: No Advance Directives Date on File: 02/04/20 service: No Current occupational status: unemployed Cognitive needs: No Hearing needs: No Vision needs: Yes Physical Exam Vital Signs: Last Vital Signs Pulse 74 03/10/24 11:18 BP 116/78 03/10/24 11:18 BMI result Body Mass Index 28.6 Const Other: Absence of Cushingoid features. Absence of acromegalic features. Neck exam reveals nl size thyroid about 15 gms. No thyroid nodules palpable. Heart S1 S2, Reg R/R. No M/R G. Skin exam reveals absence of vitiligo or acanthosis nigricans. Visual exam of foot performed. No ulcerations or open lesions. No inter digit maceration or fissuring. No onychomycosis, no callouses. Sensation intact to monofilament exam. Vibratory sensation is normal with 128 Hz tuning fork. Office Procedures Glucose Monitoring Details Details: see hpi glucose numbers improved from last download [id number] - Glucose monitoring, continuous-physician I&R Procedure code (CPT) selection complete Assessment & Plan Assessment & Plan (1) Diabetes type 2, uncontrolled: Code(s): E11.65 - Type 2 diabetes mellitus with hyperglycemia Category: Medical Qualifiers: Glycemic state: with hyperglycemia Qualified Code(s): E11.65 - Type 2 diabetes mellitus with hyperglycemia Plan: 73-year-old Type 2 diabetic with nephropathy with improving diabetic control. Freestyle average 163. She has had treatment for osteoporosis with Prolia for 1-1/2 years with subsequent normal bone density. Dr. Ferrell had referred her back to primary has most recent bone density was normal and recommended follow up bone density in 2 years. Continue current dosing of insulin. The patient had an opportunity to ask questions regarding treatment plan. The patient expressed understanding and agreement with the above treatment plan. The patient is aware they should contact our office by phone for worsening glucose readings or for any low blood sugars which may warrant a change in diabetes medication. Compliance is encouraged with medications and any followup testing/consults which may have been ordered. RTC 4 months and A1c at that time Orders: Orders AMB Glucose Monitoring Today E11.65 - Type 2 diabetes mellitus with hyperglycemia Patient Instructions: The patient was counseled to achieve a target A1C of 7% (154 avg). Fasting blood sugars should be 90-130 in the morning and less than 180 two hours after meals. Reviewed the relationship between poor diabetic control and the development of complications. The patient was counseled to always carry a source of sugar and on the rule of 15's: Take 3 glucose tablets and repeat again in 15 minutes if blood sugar is not in normal range. Continue to repeat every 15 minutes until blood sugar is normal. Check your feet daily looking for any signs of infection, ulceration and seek medical attention if this occurs. Break in shoes gradually and do not wear op en-toed shoes or walk barefooted. Coding Level of Care Code Est Pt Level 4 (87358) Diagnoses Uncontrolled type 2 diabetes mellitus with hyperglycemia E11.65 Glycemic state: with hyperglycemia CPT Codes Details - CPT: 01037 - Glucose monitoring, continuous-physician I&R ([id number]) Time Spent (min) 35 Comment Time spent reviewing labs/provider notes, glucose,sensor reports, face to face, chart doc
[2024-03-10 11:18] VITALS: BP 116/78; PULSE 74; BMI 28.6
[2024-03-10 11:27] LABS: Glucose, Whole Blood 146 mg/dL (60-115)
--- OUTSIDE RECORDS SUMMARY | 2024-03-10 11:35 | XMS_ITS | Clinical Summary ---
Author Organization Unknown Care Team Providers Care It Senior Software Engineer Java Name Role Phone LAILA CONDE, KIN Unavailable Unavailable SANJAY PTLUCIA Unavailable Unavailable Payers Payer Name Policy Type Policy Number Effective Date Expira tion Date MEDICARE - [place] PDGM [id number] Problems Condition Name Condition Details Condition Category [...] D DEFICIENCY, UNSPECIFIED Active 2021-03 00:00: 00 CHIEF DISPATCHER SERVICE (CURRENT) USE OF ANTITHROMBOT ICS/ANTIPLAT ELETS Active 2021-03 00:00: 00 DETENTION (CURRENT) USE OF INSULIN Active 2021-03 00:00: [...] 2021-03 00:00: 00 01-17 00:00 :00 No [id number] Per instruc tions Per instructio ns (route: oral) Med Classific ation: Genitouri nary Therapy furosemide 20 mg tablet 2021-03 00:00: 00 Yes [id number] 1 tablet DAILY 1 tablet DAILY (route: oral) Med Classific ation: Cardiovas cular Therapy Agents Novolog Flexpen U-100 Insulin aspart 100 unit/mL (3 mL) [facility] 2021-03 00:00: 00 Yes [id number] Per instruc tions DIRECTED Per instructio ns DIRECTED ([facility] Med Classific ation: Endocrine levothyroxi ne 100 mcg tablet 2021-03 00:00: 00 Yes [id number] Per instruc tions DAILY Per instructio ns DAILY (route: oral) Med Classific ation: Endocrine atorvastati n 40 mg tablet 2021-03 00:00: 00 Yes [id number] 1 tablet DAILY 1 tablet DAILY (route: oral) Med Classific ation: Cardiovas cular Therapy Agents Calcium 500 500 mg calcium (1,250 mg) chewable tablet 2021-03 00:00: 00 Yes [id number] 1 tablet DAILY 1 tablet DAILY (route: oral) Med Classific ation: Electroly te Balance-N utritiona l Products clopidogrel 75 mg tablet 2021-03 00:00: 00 Yes [id number] 1 tablet DAILY 1 tablet DAILY (route: oral) Med Classific ation: Hematolog ical Agents methenamine mandelate 1 gram tablet 2021-03 00:00: 00 Yes [id number] 1 tablet DAILY 1 tablet DAILY (route: oral) Med Classific ation: Genitouri nary Therapy metoprolol succinate ER 25 mg tablet,exte nded release 24 hr 2021-03 00:00: 00 Yes [id number] 1 tablet DAILY 1 tablet DAILY (route: oral) Med Classific ation: Cardiovas cular Therapy Agents omeprazole 20 mg capsule,del ayed release 2021-03 00:00: 00 Yes [id number] 1 capsule DAILY 1 capsule DAILY (route: oral) Med Classific ation: Gastroint estinal Therapy Agents Tresiba FlexTouch U-200 insulin 200 unit/mL (3 mL) subcutaneou s pen 2021-03 00:00: 00 Yes [id number] 16 unit EVERY AM 16 unit EVERY AM (route: subcutaneo us) Med Classific ation: Endocrine Vitamin B-12 500 mcg tablet 2021-03 00:00: 00 Yes [id number] 1 tablet DAILY 1 tablet DAILY (route: [...] End Date/Time Encounter Type Admission Type Attending [facility] Care Facility Care Department Encounter ID Discharge Date Discharge Status Discharge Condition Discharge Reason Percent Goals Met 2022-01-17 00:00:00 2022-03-07 00:00:00 Outpatient NEW ADMISSION [facility] [id number] 00:00:00 DISCHARGE TO HOME OR SELF CARE INDEPENDEN T IN THE HOME GOALS MET ( ONLY) 100.00
--- OUTSIDE RECORDS SUMMARY | 2024-03-10 11:35 | XMS_ITS | Clinical Summary ---
Author Organization Unknown Care Team Providers Care Supervisor Reinforced Steel Placing Name Role Phone LAILA CONDE, KIN Unavailable Unavailable SANJAY PTLUCIA Unavailable Unavailable Payers Payer Name Policy Type Policy Number Effective Date Expira tion Date MEDICARE - [place] PDGM [id number] Problems Condition Name Condition Details Condition Category [...] D DEFICIENCY, UNSPECIFIED Active 2021-03 00:00: 00 OPTOMETRIC COORDINATOR (CURRENT) USE OF ANTITHROMBOT ICS/ANTIPLAT ELETS Active 2021-03 00:00: 00 [facility] (CURRENT) USE OF INSULIN Active 2021-03 00:00: [...] 2021-03 00:00: 00 01-17 00:00 :00 No [id number] Per instruc tions Per instructio ns (route: oral) Med Classific ation: Genitouri nary Therapy furosemide 20 mg tablet 2021-03 00:00: 00 Yes [id number] 1 tablet DAILY 1 tablet DAILY (route: oral) Med Classific ation: Cardiovas cular Therapy Agents Novolog Flexpen U-100 Insulin aspart 100 unit/mL (3 mL[facility] 2021-03 00:00: 00 Yes [id number] Per instruc tions DIRECTED Per instructio ns DIRECTED [facility] Med Classific ation: Endocrine levothyroxi ne 100 mcg tablet 2021-03 00:00: 00 Yes [id number] Per instruc tions DAILY Per instructio ns DAILY (route: oral) Med Classific ation: Endocrine atorvastati n 40 mg tablet 2021-03 00:00: 00 Yes [id number] 1 tablet DAILY 1 tablet DAILY (route: oral) Med Classific ation: Cardiovas cular Therapy Agents Calcium 500 500 mg calcium (1,250 mg) chewable tablet 2021-03 00:00: 00 Yes [id number] 1 tablet DAILY 1 tablet DAILY (route: oral) Med Classific ation: Electroly te Balance-N utritiona l Products clopidogrel 75 mg tablet 2021-03 00:00: 00 Yes [id number] 1 tablet DAILY 1 tablet DAILY (route: oral) Med Classific ation: Hematolog ical Agents methenamine mandelate 1 gram tablet 2021-03 00:00: 00 Yes [id number] 1 tablet DAILY 1 tablet DAILY (route: oral) Med Classific ation: Genitouri nary Therapy metoprolol succinate ER 25 mg tablet,exte nded release 24 hr 2021-03 00:00: 00 Yes [id number] 1 tablet DAILY 1 tablet DAILY (route: oral) Med Classific ation: Cardiovas cular Therapy Agents omeprazole 20 mg capsule,del ayed release 2021-03 00:00: 00 Yes [id number] 1 capsule DAILY 1 capsule DAILY (route: oral) Med Classific ation: Gastroint estinal Therapy Agents Tresiba FlexTouch U-200 insulin 200 unit/mL (3 mL) subcutaneou s pen 2021-03 00:00: 00 Yes [id number] 16 unit EVERY AM 16 unit EVERY AM (route: subcutaneo us) Med Classific ation: Endocrine Vitamin B-12 500 mcg tablet 2021-03 00:00: 00 Yes [id number] 1 tablet DAILY 1 tablet DAILY (route: [...] End Date/Time Encounter Type Admission Type Attending [facility] Care Facility Care Department Encounter ID Discharge Date Discharge Status Discharge Condition Discharge Reason Percent Goals Met 2022-01-17 00:00:00 2022-03-07 00:00:00 Outpatient NEW ADMISSION [facility] [id number] 00:00:00 DISCHARGE TO HOME OR SELF CARE INDEPENDEN T IN THE HOME GOALS MET ( ONLY) 100.00
== END 2024-03-10 11:37 | disposition home or self-care (01) ==
PROVIDERS: PCP Internal Medicine; Visit Provider Nurse Practitioner Adult Health
DX: E11.65 Type 2 diabetes mellitus with hyperglycemia (principal)
CPT/HCPCS: 95251; 99214

== ENCOUNTER → 2024-03-10 11:13 | Outpatient (BNVA) | payer MEDICARE, MEDICAID, SELFPAY | PROVIDERS: PCP Internal Medicine; Visit Provider Nurse Practitioner Adult Health | DX: E11.65 Type 2 diabetes mellitus with hyperglycemia (principal); Z79.4 Long term (current) 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 | CPT/HCPCS: 82947; 99212 ==

== ENCOUNTER 2024-06-16 12:07 | Outpatient (AMB) | payer MEDICARE, MEDICAID, SELFPAY ==
--- NOTE | 2024-06-16 12:45 | MHC.OFFWIV ---
Intake Vital Signs 06/16/24 12:50 Weight 138 lb BP 116/64 Blood Pressure Location Rt brachial Position Sitting Pulse 73 Pulse Source Pulse Oximeter Temp 97.8 F Temp Source Oral Pulse Oximetry (%) 100 Oxygen Delivery Method Room Air Intake Visit Reasons: EP lower back pain, UTI? Intake Note: Patient here for lower back pain and fevers that started yesterday. Patient Tobacco Use Status: Never used Tobacco Allergies aspirin [ASPIRIN] Allergy (Severe, Verified 06/16/24 12:50) Swelling, rash fish derived [FISH] Allergy (Mild, Verified 06/16/24 12:50) Rash, Swelling Penicillins [PENICILLINS] Allergy (Unknown, Verified 06/16/24 12:50) Swelling Do you need a note to return to daycare/school/sports/work: No HPI HPI Comments History of Present Illness Details Daughter is with patient for visit; daughter lives with her Refused interpreting services Last night onset fo symptoms Hx of UTIs with fever and lower back pain as presenting symptoms No UTI in a while Subjective fever. No docuemted temp Tylenol helped No change in behavior No dysuria. No hematuria + chronic urinary frequency + cloudy appearance No odor noticed Eating & drinking normally Sometimes abdominal pain per patient No diarrhea episodes. Normal bowel movements daily per daughter Monitor sugars and highest has been 240 something but controlled at home. [facility] Medical History Colonoscopy refused Abnormal SPEP Personal history of malignant neoplasm of uterus Subcutaneous mass T2DM (type 2 diabetes mellitus) Urinary retention with incomplete bladder emptying Osteoporosis Elevated liver enzymes Hypoglycemia Hyperparathyroidism Serum calcium elevated CKD stage 3 due to type 2 diabetes mellitus [facility] (current) 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 Mother Pancreatic cancer Social History Household Members: Family Housing: Apartment Do you presently have visiting nurse or other home services: No Alcohol intake: current Alcohol intake frequency: holidays/special occasions only Patient Tobacco Use Status: Never used Tobacco e-Cigarette/Vaping Use: Never Used Second Hand Smoke Exposure: No Advance Directives Date on File: 02/04/20 service: No Current occupational status: unemployed Cognitive needs: No Hearing needs: No Vision needs: Yes Review of Systems Const Denies chills, Reports fever(s) and Denies poor appetite ENT Denies otalgia, Denies nasal congestion and Denies sore throat Card Denies chest pain Resp Denies cough GI Reports abdominal pain, Denies diarrhea and Denies vomiting Denies hematuria, Denies dysuria, Denies urinary incontinence and Reports urinary urgency (frequency) Musc Reports back pain Skin/Breast Denies rash Neuro Denies behavioral changes and Denies confusion Psych Denies behavioral changes and Denies confusion Physical Exam Vital Signs: Last Vital Signs Temp 97.8 F 06/16/24 12:50 Pulse 73 06/16/24 12:50 BP 116/64 06/16/24 12:50 Pulse Ox 100 06/16/24 12:50 Oxygen Delivery Method Room Air 06/16/24 12:50 General: Non-toxic, NAD. Speaking full sentences in nepali Skin: Warm dry throughout Eye: EOMI HENT: Airway patent. Uvula midline. No pharyngeal erythema or edema. No GOLF COURSE DESIGNER. Bilateral canals clear. TM non-erythematous, non-bulging. No TM perforation or hemotympanum noted. Respiratory: CTA bilaterally. No wheezes, rales or rhonchi Cardiac: RRR. No murmur Abdomen: No abdominal ttp. No CVAT. MSK: Minimal L lower lumbar paravertebral muscle ttp. Full ROM extremities. Neurology: Alert. No aphasia or facial droop. Psych: Good mood and affect Const General: No confusion Orientation/consciousness: No confusion Neuro General: No confusion Results AMB Urinalysis, Automated UA Leukoctes 500 Antony/uL Last Edit by ELI Bruno on 06/16/24 13:29 UA Nitrite Negative Last Edit by ELI Bruno on 06/16/24 13:29 UA Urobilinogen 0.2 mg/dL Last Edit by ELI Bruno on 06/16/24 13:29 UA Protein 15 mg/dL Last Edit by ELI Bruno on 06/16/24 13:29 UA pH 6.0 Last Edit by Osmin Blanc CCM on 06/16/24 13:29 UA Blood 25 Ian/uL Last Edit by ELI Bruno on 06/16/24 13:29 UA Specific [place] 1.010 Last Edit by ELI Bruno on 06/16/24 13:29 UA Ketone Negative Last Edit by Osmin Blanc CCM on 06/16/24 13:29 UA Bilirubin 0 mg/dL Last Edit by ELI Bruno on 06/16/24 13:29 UA Glucose 0 mg/dL Last Edit by ELI Bruno on 06/16/24 13:29 Assessment & Plan Assessment & Plan (1) Urinary tract infection: Code(s): N39.0 - Urinary tract infection, site not specified Qualifiers: Hematuria presence: without hematuria Urinary tract infection type: acute cystitis Qualified Code(s): N30.00 - Acute cystitis without hematuria Plan: Patient seen and evaluated. U/a: + leuks, blood and glucose No ketones or nitrates Increase fluid and tylenol prn Last culture + e. coli Will tx with keflex. Has PNC allergy but takes cephalosporins great and has nointeraction. This medicine is preferred per daughter Patient and daughter gave verbal understanding and had no additional questions or concerns at time of discharge All questions answered Orders: Orders Urine Culture Today N39.0 - Urinary tract infection, site not specified Medications: New cephalexin 500 mg PO BID 10 caps 0RF Coding Level of Care Code Est Pt Level 3 (17902) Diagnoses Acute cystitis without hematuria N30.00 Hematuria presence: without hematuria Urinary tract infection type: acute cystitis
[2024-06-16 12:50] VITALS: BP 116/64; PULSE 73; TEMP 36.6; O2SAT 100
--- OUTSIDE RECORDS SUMMARY | 2024-06-16 14:28 | XMS_ITS | Clinical Summary ---
Author Organization 175 [facility] Address 175 [place] [address] Phone Care Team Providers Care Skirt Trimmer Name Role Phone Kimi Patino MD Primary Care Provider [phone] Encounters Date Type Department Care Team Description 03/24/2024 9:15 AM EST Consult Orthopedic [facility] [address] [address] Ravindra Gan DPM Diabetic mononeuropathy simplex (CMS/HCC V24, CMS/HCC V28) (Primary Dx); Type 2 diabetes mellitus without complications (CMS/HCC V24, CMS/HCC V28); Type II diabetes mellitus with peripheral circulatory disorder (CMS/HCC V24, CMS/HCC V28); Dermatophytosis of nail; Pain in toe of right foot; Pain in toe of left foot from Last 3 Months Social History Tobacco Use Types Packs/Day Years Used Date Smoking Tobacco: Never Assessed Comments Unknown Sex and Gender Information Value Date Recorded Sex Assigned at Not on file Legal Sex Female 10:46 PM EST Gender Identity Not on file Sexual Orientation Not on file Last Filed Vital Signs Vital Sign Reading Time Taken Comments Blood Pressure - - Pulse - - Temperature - - Respiratory Rate - - Oxygen Saturation - - Inhaled Oxygen Concentration - - Weight 62.6 kg (138 lb) 03/24/2024 9:39 AM EST Height 147.3 cm (4' 10 ) 03/24/2024 9:39 AM EST Body Mass Index 28.84 03/24/2024 9:39 AM EST Plan of Treatment Upcoming Encounters Date Type Department Care Team (Late st Contact Info) Description 06/28/2024 11:00 AM EDT Office Visit Orthopedic [facility] [address] [address] Ravindra Gan, DPM 175 [facility] [address] [place] [address] Health Maintenance Due Date Last Done Comments Breast Cancer Screening 1950 HIB Vaccines (1 of 1 - Risk 1-dose series) 10/03/1953 Meningococcal ACWY Vaccine (1 - Risk 2-dose series) 1954 Diabetes: Annual Foot Exam 1962 Diabetes: Annual Retina Eye Exam 1962 Meningococcal B Vaccine (1 of 5 - Increased Risk) 1962 RSV Immunization Adult Patients (1 - Risk 60-74 years 1-dose series) 2012 Zoster Vaccines (2 of 2) 02/13/2018 12/19/2017 Cholesterol Screening (Lipid Panel) 02/03/2022 Colorectal Cancer Screening: Colonoscopy 02/03/2022 Depression Screening 02/03/2022 Falls Risk Assessment 02/03/2022 Hepatitis C Screening 02/03/2022 Medicare Annual Wellness Visit 02/03/2022 Osteoporosis Screening (Bone Density Screening) 02/03/2022 Social Influencers of Health Screening 02/03/2022 Pneumococcal Vaccine: 50+ Years (4 of 4 - PCV20 or PCV21) 12/19/2022 12/19/2017, 10/12/2013, 07/06/2009 COVID-19 Vaccine (3 - season) 2023 07/16/2020, 06/25/2020 Diabetes: Annual Urine Albumin-Creatinine Ratio (uACR) 03/22/2024 Diabetes: Blood Sugar Control Test (HGBA1C) 03/22/2024 Influenza Vaccine (Season Ended) 2024 12/16/2019, 12/01/2018, 12/19/2017, Additional history exists Diabetes: Annual GFR (Glomerular Filtration Rate) 12/21/2024 12/22/2023 Hypertension/CHF/CAD Annual BMP Blood Test 12/21/2024 12/22/2023 DTaP,Tdap,and Td Vaccines (3 - Td or Tdap) 05/13/2031 05/12/2021, 09/05/2009 HPV Vaccines Aged Out No longer eligi ble based on patient's age to complete this topic Hepatitis A Vaccines Aged Out No long er eligible based on patient's age to complete this topic Hepatitis B Vaccines Aged Out No long er eligible based on patient's age to complete this topic IPV Vaccines Aged Out No longer eligi ble based on patient's age to complete this topic MMR Vaccines Aged Out No longer eligi ble based on patient's age to complete this topic RSV Immunization Patients Under 20 months Aged Out No longer eligible based on patient's age to complete this topic Varicella Vaccines Aged Out No longer eligible based on patient's age to complete this topic Insurance MEDICA[place] - [place] MEDICARE Care Teams Skirt Trimmer Relationship Specialty Start Date End Date Kimi Patino MD [address] [place] [address] PCP - General 06/06/15
--- OUTSIDE RECORDS SUMMARY | 2024-06-16 14:28 | XMS_ITS | Encounter Summary ---
Author Organization [facility] Address 100 [facility] [address] [place] [address] Phone Care Team Providers Care Senior Communications Specialist Name Role Phone Kimi Patino MD Primary Care Provider [phone] Encounter Details Date Type Department Care Team ([facility] Contact Info) Description 07/05/2020 Orders Only [facility] 100 [facility] [address] [place] [address] Provider, MD Brii [address] [place] [address] Social History Tobacco Use Types Packs/Day Years Used Date Smoking Tobacco: Never Smokeless Tobacco: Never Alcohol Use Standard Drinks/Week Comments No 0 (1 standard drink = 0.6 oz pur e alcohol) Comments Unknown Sex and Gender Information Value Date Recorded Sex Assigned at Not on file Legal Sex Female 5:04 PM EST Gender Identity Not on file Sexual Orientation Not on file COVID-19 Exposure Response Date Recorded In the last month, have you been in contact with someone who was confirmed or suspected to have Coronavirus / COVID-19? No / Unsure 07/05/2020 7:54 AM EDT documented as of this encounter Plan of Treatment Upcoming Encounters Date Type Department Care Team ([facility] Contact Info) Description 06/28/2024 10:00 AM EDT Office Visit [facility] [address] [address] MD [address] [address] 06/29/2024 Orders Only [facility] [address] [phone] MD [address] [phone] Stage 3b chronic kidney disease (HCC); Persistent proteinuria; Hyponatremia; Hypertension; Hyperkalemia; Type 2 diabetes mellitus with complication, not otherwise specified (HCC) documented as of this encounter Procedures Procedure Name Priority Date/Time Associated Diagnosis Comments EXT RESULT ENTRY Routine 07/02/2020 EXT RESULT ENTRY Routine 07/01/2020 EXT RESULT ENTRY Routine 06/30/2020 documented in this encounter Results * EXT RESULT ENTRY (07/02/2020) [facility] Provider LAB BLOOD ORDERABLES Dora l Result * EXT RESULT ENTRY (07/01/2020) Historical Provider LAB BLOOD ORDERABLES Dora l Result * EXT RESULT ENTRY (06/30/2020) [facility] Provider LAB BLOOD ORDERABLES Dora l Result documented in this encounter Visit Diagnoses Not on filedocumented in this encounter Care Teams Senior Communications Specialist Relationship Specialty Start Date End Date Kimi Patino MD [facility] [place] [address] PCP - General 03/13/20 documented as of this encounter
--- OUTSIDE RECORDS SUMMARY | 2024-06-16 14:28 | XMS_ITS | Clinical Summary ---
Author Organization [facility] Address [address] [address] Phone Care Team Providers Care Director Learning Services Name Role Phone Kimi Patino MD Primary Care Provider [phone] Allergies Active Allergy Reactions Criticality Noted Date Comments Aspirin Other (see comments) 2020 Ciprofloxacin Nausea And Vomiting 02/19/2022 Fish Allergy 04/14/2023 Penicillin G Hives 08/19/2022 Penicillins Other (see comments) 2020 Medications BD Pen Needle Denisa 2nd Gen 32G X 4 MM misc USE TO INJECT INSULIN TWICE DAILY 05/23/2020 Active insulin aspart (NovoLOG FLEXPEN) 100 UNIT/ML injection Comments: Filled Date: Jan 25 2018 12:00AM Duration: 50 12/10/2017 Active estradiol (ESTRACE) 0.1 MG/GM vaginal cream as directed Active cyanocobalamin (VITAMIN B-12) 1000 MCG tablet Take 1 tablet by mouth at bed time Active clopidogrel (PLAVIX) 75 MG tablet Take 1 tablet by mouth 1 (one) time each day Active Cholecalciferol 50 MCG (2000 UT) capsule Take 1 capsule by mouth 1 (one) time each day Active atorvastatin (LIPITOR) 40 MG tablet Take 1 tablet by mouth 1 (one) time each day Active FREESTYLE LITE test strip USE DIRECTED THREE TIMES DAILY 10/16/2020 Active Tresiba FlexTouch 200 UNIT/ML injection INJECT 42 UNITS UNDER THE SKIN DAILY 12/05/2020 Active levothyroxine (SYNTHROID, LEVOTHROID) 125 MCG tablet Take 125 mcg by mouth 1 (one) time each day 12/20/2020 Active Ascorbic Acid (vitamin C) 250 MG tablet Take 500 mg by mouth 1 (one) time each day Active FeroSul 325 (65 Fe) MG tablet Take 1 tablet by mouth 1 (one) time each day 06/11/2021 Active Prolia 60 MG/ML solution prefilled syringe 05/23/2021 Active metoprolol succinate XL (TOPROL XL) 25 MG 24 hr tablet TAKE 1 TABLET BY MOUTH TWICE DAILY 180 tablet 3 05/28/2022 Active furosemide (LASIX) 20 MG tablet TAKE 1 TABLET BY MOUTH EVERY DAY 90 tablet 3 07/21/2022 Active lansoprazole (PREVACID) [address] capsule Take 30 mg by mouth 1 (one) time each day 07/30/2022 Active Active Problems Problem Noted Date Diagnosed Date Heartburn 08/19/2022 Obese class I 08/19/2022 Cerebrovascular accident 02/19/2022 Hypertension 07/05/2020 Sickle-cell anemia 07/05/2020 Empty sella syndrome 07/05/2020 Proteinuria 2020 Hyponatremia 2020 Hypertensive renal disease 2020 Hyperkalemia 2020 Diabetes mellitus 2020 Stage 3b chronic kidney disease 2020 Left hemiparesis 12/29/2006 Resolved Problems Problem Noted Date Diagnosed Date Resolved Date Syndrome of inappropriate va sopressin secretion 2020 07/05/2020 Neuropathy due to diabetes mellitus 2020 07/05/2020 Immunizations Immunization Administration Dates Next Due Influenza TIV (IM) 11/20/2016 Pneumococcal Polysaccharide 10/12/2013 Family History Medical History Relation Comments Diabetes Father Hypertension Father Kidney disease Father Cancer Mother Diabetes Sibling 1 Heart disease Sibling 2 Relation Status Comments Father Mother Sibling 1 Sibling 2 Social History Tobacco Use Types Packs/Day Years [...] Sign Reading Time Taken Comments Blood Pressure 122/60 12/30/2023 9:49 AM EDT Pulse 86 12/30/2023 9:49 AM EDT Temperature - - Respiratory Rate - - Oxygen Saturation 99% 12/30/2023 9:49 AM EDT Inhaled Oxygen Concentration - - Weight 62.2 kg (137 lb 3.2 oz) 12/30/2023 9:49 A M EDT Height 147.3 cm (4' 10 ) 12/30/2023 9:49 AM EDT Body Mass Index 28.67 12/30/2023 9:49 AM EDT Plan of Treatment Upcoming Encounters Date Type Department Care Team (Late st Contact Info) Description 06/28/2024 10:00 AM EDT Office Visit [facility] [address] [place] [phone] MD [address] [phone] 06/29/2024 Orders Only [facility] [address] [phone] MD [address] [address] Stage 3b chronic kidney disease (HCC); Persistent proteinuria; Hyponatremia; Hypertension; Hyperkalemia; Type 2 diabetes mellitus with complication, not otherwise specified (HCC) Health Maintenance Due Date Last Done Comments Breast Cancer Screening 1950 Colorectal Cancer Screening: Annual FOBT 2001 Colorectal Cancer Screening: Colonoscopy 2001 Colorectal Cancer Screening: Sigmoidoscopy 2001 Pneumococcal Vaccine: 50+ Years (3 of 3 - PCV) 10/12/2014 10/12/2013, 07/06/2009 Diabetes: Hemoglobin A1C 04/02/2020 Diabetes: Ophthalmology Exam 04/02/2020 Diabetes: Pedal Pulse Checked 04/02/2020 Diabetes: Sensory Foot Exam 04/02/2020 Diabetes: Visual Foot Exam 04/02/2020 Influenza Vaccine (Season Ended) 2024 11/20/2016 Pneumococcal Vaccine: Peds ( 0 to 5 Years) and At-Risk Patients (6 to 49 Years) Discontinued 10/12/2013, 07/06/2009 Hepatitis B Vaccine Aged Out No longe r eligible based on patient's age to complete this topic Insurance Medicare Medicaid [place] Medicaid [place] Medicare Care Teams Director Learning Services Relationship Specialty Start Date End Date Sukumar, Asma, MD [address] [place] [address] PCP - General 03/13/20
== END 2024-06-16 13:27 | disposition home or self-care (01) ==
PROVIDERS: PCP Internal Medicine; Visit Provider Physician Assistant
DX: Z13.9 Encounter for screening, unspecified (principal); N30.00 Acute cystitis without hematuria

== ENCOUNTER 2024-06-16 12:07 | Outpatient (REF) | payer MEDICARE, MEDICAID, SELFPAY ==
--- OUTSIDE RECORDS SUMMARY | 2024-06-16 18:15 | XMS_ITS | Encounter Summary ---
Author Organization [facility] Address 100 [facility] [address] [place] [address] Phone Care Team Providers Care Washing And Screening Plant Supervisor Name Role Phone Kimi Patino MD Primary Care Provider [phone] Encounter Details Date Type Department Care Team ([facility] Contact Info) Description 07/05/2020 Orders Only [facility] 100 [facility] [address] [place] [address] Provider, MD Brii [address] [place] [address] Social History Tobacco Use Types Packs/Day [...] Upcoming Encounters Date Type Department Care Team ([facility] Contact Info) Description 06/28/2024 10:00 AM EDT Office Visit [facility] [address] [phone] MD [address] [address] 06/29/2024 Orders Only [facility] [address] [phone] MD [address] [phone] Stage 3b chronic kidney disease (HCC); Persistent proteinuria; Hyponatremia; Hypertension; Hyperkalemia; Type 2 diabetes mellitus with complication, not otherwise specified (HCC) documented as of this encounter Procedures Procedure Name Priority Date/Time Associated Diagnosis Comments EXT RESULT ENTRY Routine 07/02/2020 EXT RESULT ENTRY Routine 07/01/2020 EXT RESULT ENTRY Routine 06/30/2020 documented in this encounter Results * EXT RESULT ENTRY (07/02/2020) [facility] Provider LAB BLOOD ORDERABLES Dora l Result * EXT RESULT ENTRY (07/01/2020) Historical Provider LAB BLOOD ORDERABLES Dora l Result * EXT RESULT ENTRY (06/30/2020) [facility] Provider LAB BLOOD ORDERABLES Dora l Result documented in this encounter Visit Diagnoses Not on filedocumented in this encounter Care Teams Washing And Screening Plant Supervisor Relationship Specialty Start Date End Date Kiim Patino MD [facility] [place] [address] PCP - General 03/13/20 documented as of this encounter
--- OUTSIDE RECORDS SUMMARY | 2024-06-16 18:15 | XMS_ITS | Clinical Summary ---
Author Organization 175 [facility] Address [address] [place] [address] Phone Care Team Providers Care Maintenance Fitter Name Role Phone Kimi Patino MD Primary Care Provider [phone] Encounters Date Type Department Care Team Description 03/24/2024 9:15 AM EST Consult Orthopedic [facility] [address] [phone] Ravindra Gan DPM Diabetic mononeuropathy [...] 06/28/2024 11:00 AM EDT Office Visit Orthopedic [facility] [address] [phone] Ravindra Gan, DPM 175 [facility] [address] [place] [address] Health Maintenance Due Date Last Done Comments [...] Insurance [place] - [place]ARE Care Teams Maintenance Fitter Relationship Specialty Start Date End Date Kimi Patino MD [address] [place] [address] PCP - General 06/06/15
--- OUTSIDE RECORDS SUMMARY | 2024-06-16 18:16 | XMS_ITS | Clinical Summary ---
Author Organization [facility] Address [address] [address] Phone Care Team Providers Care Hangersmith Name Role Phone Kimi Patino MD Primary Care Provider [phone] Allergies Active Allergy Reactions Criticality Noted Date [...] Office Visit [facility] [address] [place] [phone] MD [address] [address] 06/29/2024 Orders Only [facility] [address] [phone] MD [address] [phone] Stage 3b chronic kidney disease [...] Medicaid [place] Medicare Care Teams Hangersmith Relationship Specialty Start Date End Date Sukumar, Asma, MD [address] [place] [address] PCP - General 03/13/20
== END 2024-06-16 12:08 | disposition home or self-care (01) ==
LOC: HO.LNP 12:07
PROVIDERS: PCP Internal Medicine; Visit Provider Physician Assistant
DX: N30.00 Acute cystitis without hematuria (principal)
CPT/HCPCS: 81003; 87086; 87088; 87186; 99212

== ENCOUNTER 2024-07-12 11:58 | Outpatient (AMB) | payer MEDICARE, MEDICAID, SELFPAY ==
--- NOTE | 2024-07-12 12:00 | A.OFFVIS_ITS ---
Intake Visit Reasons: 6m/PVR Intake Note: Patient presents today for 6 month follow up/PVR Urology Medications: none Blood Thinner: clopidogrel PVR: 148ml Senior Etl Developer Required: Yes Senior Etl Developer Services: Senior Etl Developer Present Accompanied by: Daughter Allergies aspirin [ASPIRIN] Allergy (Severe, Verified 07/12/24 21:10) Swelling, rash fish derived [FISH] Allergy (Mild, Verified 07/12/24 21:10) Rash, Swelling Penicillins [PENICILLINS] Allergy (Unknown, Verified 07/12/24 21:10) Swelling Medication List - Last Reconciled 07/12/24 by BRANDON Daniel acetaminophen 650 mg PO Q6H PRN Admelog SoloStar U-100 Insulin (insulin lispro) tid with meals 100-150 10 units 151-250 12 units over 250 14 units subcutaneously use as directed; 90 days MDD 48 units NS ascorbate calcium (vitamin C) 500 mg PO DAILY 90 days atorvastatin 40 mg PO DAILY Basaglar KwikPen U-100 Insulin (insulin glargine) 30 units (0.3 mL) subcut QPM 90 days NS [Bedside commode As directed] blood sugar diagnostic (FreeStyle Lite Strips) As directed three times a day blood-glucose meter (FreeStyle Lite Meter kit) As directed 4x/day cephalexin 500 mg PO BID cholecalciferol (vitamin D3) 50 mcg PO DAILY 30 days ciprofloxacin HCl (Cipro) 250 mg PO Q12H clindamycin HCl 300 mg PO Q8H 5 days clopidogrel 75 mg PO DAILY cyanocobalamin (vitamin B-12) (Vitamin B-12) 1,000 mcg PO DAILY flash glucose sensor (FreeStyle Angela 2 Sensor kit) Once every 14 days furosemide 20 mg PO DAILY lancets As directed lansoprazole 30 mg PO DAILY levothyroxine 88 mcg PO DAILY metoprolol succinate ER 25 mg PO BID nitrofurantoin monohyd/m-cryst 100 mg 100 mg PO Q12H 5 days pen needle, diabetic (BD Denisa 2nd Gen Pen Needle) USE DIRECTED FOUR TIMES DAILY [raised toilet seat with arms As directed] [Shower chair with arms As directed] [walker with seat and breaks As directed] HPI Comments Details: Jacqueline is a pleasant 74 year old [place]uran speaking patient who is accompanied by her daughter Kristy at todays visit who is a patient of Dr. Patino. She has a past medical history of bacteremia, CKD stage 3, CVA with left-sided weakness, DM Type II, diabetic neuropathy, elevated liver enzymes, hypertension, hyperlipidemia, iron deficiency anemia, osteoporosis, and vitamin-D deficiency. She presents to the office today for a follow up of her neurogenic bladder, incomplete bladder emptying, recurrent urinary tract infections, and bilateral hydronephrosis. In discussion with the patient and her daughter today she reports having seeked urgent care services approximately 1 month ago for question of urinary tract infection at which time she was treated with cephalexin. She reports having completed antibiotic therapy as prescribed and has been doing and feeling well. In office urinalysis results reviewed with the patient today 3+ leukocytes negative nitrates. PVR 148ml's. We discussed at length potential causes of recurrent urinary tract infections as well as patient's longstanding history of a neurogenic bladder with incomplete bladder emptying. Previously patient had been catheterizing twice today to assist with incomplete bladder emptying however she refuses and does not wish to continue clean intermittent catheterization for incomplete bladder emptying. We discussed further treatment options to include suprapubic tube. However she does not wish to undergo any further treatment options despite discussion regarding worsening symptoms as well as affects of neurogenic bladder, incomplete bladder emptying, and recurrent urinary tract infections on overall health and well-being without further intervention. Patient with a history of cystoscopy, cystogram, and urethral dilation with Dr. Mcintyre on 11/12/22 for her recurrent urinary tract infections, bilateral hydronephrosis, and neurogenic bladder. Postop diagnosis noted vesicoureteral reflux bilateral grade 4 and urethral narrowing. The bladder wall appeared fibrinous with mild erythema. There were no suspicious bladder lesions seen. When contrast was mixed and placed under gravitiy there was noted to be bilateral reflux into both ureters up into the kidneys, noting significant dilation of the ureters and renal p elves. After draining the contrast there was drainage and decompression of bilateral ureters noted. In review of patient's chart it appears urine culture 06/25 Staphylococcus aureus. We discussed further treatment options of recurrent urinary tract infections to include trial of Estrace cream verses Vagifem however patient declines at this time. She does not feel any intervention is necessary. When asked she currently denies urinary urgency, urinary frequency, nocturia, hematuria, dysuria, changes to urinary stream, flank pain, fever, and or chills. She does report urinary incontinence at times. She reports possibly moving to [place] within the next 3 months. BUN and creatinine results reviewed with the daughter and patient today. BUN: 11/23--45, 11/23--44, 06/23--35, 04/25--36, 04/02--33, 03/25--26, 01/22--34, 11/22--31, 05/22--39, 05/22--40, 03/26--37, 06/24 35, 11/24 44, 01/24 45 Creatinine: 11/23--1.30, 11/23--1.35, 06/23--1.56, 04/25--1.41, 03/25--1.49, 03/25--1.35, 01/22--1.72, 01/22--1.58, 11/22--1.39, 05/22--1.82, 05/22--1.97, 03/26--1.40, 06/24 1.88, 11/24 2.25, 01/24 1.61 [facility] Medical History Colonoscopy refused Abnormal SPEP Personal history of malignant neoplasm of uterus Subcutaneous mass T2DM (type 2 diabetes mellitus) Urinary retention with incomplete bladder emptying Osteoporosis Elevated liver enzymes Hypoglycemia Hyperparathyroidism Serum calcium elevated CKD stage 3 due to type 2 diabetes mellitus 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 Mother Pancreatic cancer Social History Household Members: Family Housing: Apartment Do you presently have visiting nurse or other home services: No Alcohol intake: current Alcohol intake frequency: holidays/special occasions o nly Patient Tobacco Use Status: Never used Tobacco e-Cigarette/Vaping Use: Never Used Second Hand Smoke Exposure: No Advance Directives Date on File: 02/04/20 service: No Current occupational status: unemployed Cognitive needs: No Hearing needs: No Vision needs: Yes Review of Systems Const Reports as per HPI Eyes Reports no additional complaints ENT Reports no additional complaints Card Reports as per HPI Resp Reports no additional complaints GI Reports as per HPI Reports as per HPI Musc Reports as per HPI Neuro Reports as per HPI Endo Details: patient reports she is diabetic Reports as per HPI Stewart/Lymph Reports no additional complaints Aller/Immun Reports no additional complaints Physical Exam Const General: cooperative, healthy appearing, comfortable, no acute distress, well developed, alert and awake Orientation/consciousness: patient oriented x3 Limitations: language barrier and ambulation with walker HEENT Head: Yes normal to inspection, Yes normocephalic and Yes atraumatic Ears: hearing grossly normal bilaterally Eyes General: appearance normal, both eyes and all related structures Neck Neck: Yes normal visual inspection and Yes trachea midline Chest Chest palpation & inspection: normal inspection of the chest Resp Effort & Inspection: normal respiratory effort and able to speak in complete sentences Cardio Rate: regular rate GI Inspection: Yes normal to inspection General: Yes no CVA tenderness Back/Spine/Pelvis Back: no CVA tenderness Skin General skin exam: no rashes or lesions noted Neuro General: patient oriented x3 Extrem General: Yes normal to inspection Psych Appearance: grossly normal and well kempt Mental Status: mental status grossly normal Speech and movement: Normal speech and movement present and Clear speech present Affect: normal affect Attitude: cooperative Thought process: Normal thought process present Thought content: Normal thought content present Insight: Fair insight present (Psych) Judgement: Fair judgement present (Psych) Results AMB Urinalysis, Automated UA Leukoctes 500 Antony/uL Last Edit by ELI Velázquez on 07/12/24 16:40 UA Nitrite Negative Last Edit by ELI Velázquez on 07/12/24 16:40 UA Urobilinogen 0.2 mg/dL Last Edit by ELI Velázquez on 07/12/24 16:4 0 UA Protein 15 mg/dL Last Edit by ELI Velázquez on 07/12/24 16:40 UA pH 6.0 Last Edit by [facility] on 07/12/24 16:40 UA Blood 25 Ian/uL Last Edit by Jessica Fu[facility] on 07/12/24 16:40 UA Specific Spencer 1.015 Last Edit by Jessica Fuentes [facility] on 07/12/24 16: 40 UA Ketone Negative Last Edit by Jessica Fuentes [facility] on 07/12/24 16:40 UA Bilirubin 0 mg/dL Last Edit by Jessica Fuentes [facility] on 07/12/24 16:40 UA Glucose 250 mg/dL Last Edit by Jessica Fuentes [facility] on 07/12/24 16:40 Results Reviewed Results Reviewed: Laboratory Last Values Urine pH (Auto) 6.0 07/12/24 13:44 Specific Spencer (Auto) 1.015 07/12/24 13:44 Urine Protein (Auto) 15 mg/dL 07/12/24 13:44 Glucose (UA)(Auto) 250 mg/dL 07/12/24 13:44 Urine Ketones (Auto) Negative 07/12/24 13:44 Urine Blood (Auto) 25 Ian/uL 07/12/24 13:44 Urine Nitrite (Auto) Negative 07/12/24 13:44 Urine Bilirubin (Auto) 0 mg/dL 07/12/24 13:44 Urine Urobilinogen (Auto) 0.2 mg/dL 07/12/24 13:44 Leukocyte Esterase (Auto) 500 Antony/uL 07/12/24 13:44 Assessment & Plan Assessment & Plan (1) Recurrent UTI: Code(s): N39.0 - Urinary tract infection, site not specified Category: Medical (2) Neurogenic bladder: Code(s): N31.9 - Neuromuscular dysfunction of bladder, unspecified Category: Medical (3) Urinary retention with incomplete bladder emptying: Code(s): R33.9 - Retention of urine, unspecified Category: Medical (4) Hydronephrosis: Code(s): N13.30 - Unspecified hydronephrosis Category: Medical (5) Reflux, vesicoureteral: Code(s): N13.70 - Vesicoureteral-reflux, unspecified Category: Medical Plan In office urinalysis results reviewed with the patient today; as noted above; will send for urine culture as well as urine cytology; will await results for potential treatment. PVR 148mL. We discussed further treatment options of recurrent urinary tract infections to include trial Estrace cream verses Vagifem. We discussed further treatment options of incomplete bladder emptying and neurogenic bladder; risks and benefits of these interventions were discussed; although we discussed potential for poor outcomes with no further treatment she continues to decline further treatment options at this time. Discussed importance of managing diabetes for improvement lower urinary tract symptoms as well as overall health and well-being. We discussed further workup to include imaging and labs however patient and daughter do not feel this is necessary at this time. Discussed UTI prevention with D mannose supplement, vitamin-C, increasing fluid intake, behavioral therapy with timed voiding, perineal hygiene and postcoital voiding, and management of constipation with stool softeners and increased fiber intake. Follow-up in 3 months with PVR and labs to be completed prior; or sooner with any issues, concerns, and or questions. Orders: Orders AMB Urinalysis Automated Today Z13.9 - Encounter for screening, unspecified Urine Cytology Today N39.0 - Urinary tract infection, site not specified Creatinine Today N13.70 - Vesicoureteral-reflux, unspecified Urine Culture Today N39.0 - Urinary tract infection, site not specified Blood Urea Nitrogen Today N13.30 - Unspecified hydronephrosis, N13.70 - Vesicoureteral-reflux, unspecified, N31.9 - Neuromuscular dysfunction of bladder, unspecified, N39.0 - Urinary tract infection, site not specified, R33.9 - Retention of urine, unspecified Medications: Discontinued nitrofurantoin monohyd/m-cryst 100 mg must administer with a meal/food Discontinued Reason: Patient Completed Course 100 mg PO Q12H 5 days 10 caps 0RF ciprofloxacin HCl (Cipro) Discontinued Reason: Patient Completed Course 250 mg PO Q12H 6 tabs 0RF cephalexin Discontinued Reason: Patient Completed Course 500 mg PO BID 10 caps 0RF clindamycin HCl Discontinued Reason: Patient Refused 300 mg PO Q8H 5 days 15 caps 0RF Patient Instructions: The patient had an opportunity to ask questions regarding the treatment plan. All questions were answered. Physical exam, labs, and imaging were discussed and reviewed in detail. As well as risks, benefits, and discussion of treatment choices. No major barriers to understanding were identified. The patient expressed understanding and agreement with the above treatment plan. The patient was made aware they should contact our office by phone for worsening of their current condition, the appearance of new symptoms, or with any questions or concerns. Compliance is encouraged with any medications and follow up testing that is ordered. It is a privilege to be allowed the opportunity to participate in? your urological care.? Again, if you have any questions or concerns If you have any questions or concerns please do not hesitate to contact me. The office is [phone]. This note is constructed using voice recognition software. While every effort has been made to ensure accuracy guide changer errors may have been included. Yours sincerely, BRANDON Daniel Coding Level of Care Code Est Pt Level 4 (84503) Complex EM visit Add On G2211 Diagnoses Recurrent UTI N39.0 Neurogenic bladder N31.9 Urinary retention with incomplete bladder emptying R33.9 Hydronephrosis N13.30 Reflux, vesicoureteral N13.70 Time Spent (min) 30
--- OUTSIDE RECORDS SUMMARY | 2024-07-12 12:35 | XMS_ITS | Encounter Summary ---
Author Organization [facility] Address [address] [facility] [address] [place] [address] Phone Care Team Providers Care Outreach Manager Name Role Phone Kimi Patino MD Primary Care Provider [phone] Encounter Details Date Type Department Care Team ([facility] Contact Info) Description 07/05/2020 Orders Only [facility] [address] [address] Provider, MD Brii [address] [place] [id number] Social History Tobacco Use Types Packs/Day Years [...] Encounters Date Type Department Care Team (Late Contact Info) Description 08/23/2024 10:40 AM EDT Office Visit [facility] [address] [phone] MD [address]39 [facility] [address] [place] [address] documented as of this encounter Procedures Procedure Name Priority Date/Time Associated Diagnosis Comments EXT RESULT ENTRY Routine 07/02/2020 EXT RESULT ENTRY Routine 07/01/2020 EXT RESULT ENTRY Routine 06/30/2020 documented in this encounter Results * EXT RESULT ENTRY (07/02/2020) Historical Provider MD LAB BLOOD ORDERABLES Dora l Result * EXT RESULT ENTRY (07/01/2020) Historical Provider MD LAB BLOOD ORDERABLES Dora l Result * EXT RESULT ENTRY (06/30/2020) [facility] Provider MD LAB BLOOD ORDERABLES Dora l Result documented in this encounter Visit Diagnoses Not on filedocumented in this encounter Care Teams Outreach Manager Relationship Specialty Start Date End Date Kimi Patino MD [address] [place] [id number] PCP - General 03/13/20 documented as of this encounter
--- OUTSIDE RECORDS SUMMARY | 2024-07-12 12:35 | XMS_ITS | Clinical Summary ---
Author Organization [facility] Address [address] [address] Phone Care Team Providers Care Collet Driller Name Role Phone Kimi Patino MD Primary Care Provider Allergies Active Allergy Reactions Criticality Noted Date [...] Neuropathy due to diabetes mellitus 2020 07/05/2020 Encounters Date Type Department Care Team Description 06/29/2024 Orders Only [facility] [address] [phone] MD Stage 3b chronic kidney disease (HCC); Persistent proteinuria; Hyponatremia; Hypertension; Hyperkalemia; Type 2 diabetes mellitus with complication, not otherwise specified (HCC) 06/28/2024 Documentation Only [facility] [address] [phone] MD No Show (No show/) from Last 3 Months Immunizations Immunization Administration Dates Next Due Influenza [...] Care Team (Late st Contact Info) Description 08/23/2024 10:40 AM EDT Office Visit [facility] [address] [phone] MD [address] [address] Health Maintenance Due Date Last Done Comments [...] to complete this topic Insurance Medicare Medicaid [place] Medicaid [place] Medicare Care Teams Collet Driller Relationship Specialty Start Date End Date Kimi Patino MD [address] [place] [address] PCP - General 03/13/20
--- OUTSIDE RECORDS SUMMARY | 2024-07-12 12:35 | XMS_ITS | Clinical Summary ---
Author Organization [address] [facility] Address [address] [place] [address] Phone Care Team Providers Care Staffing Director Name Role Phone Kimi Patino MD Primary Care Provider [phone] Allergies Active Allergy Reactions Criticality Noted Date Comments Aspirin Hives,Other 2020 Ciprofloxacin Nausea And Vomiting 02/19/2022 Fish Containing Products 01/21/2022 Penicillins Hives,Other 2020 Sulfamethoxazole Nausea And Vomiting 05/04/2023 Trimethoprim Nausea And Vomiting 05/04/2023 Encounters Date Type Department Care Team Description 06/28/2024 11:00 AM EDT Office Visit Orthopedic Surgery [facility] [address] [phone] Ravindra Gan, SILVIA Acquired hammer toe of right foot (Primary Dx); Hammer toe of left foot; Type II diabetes mellitus with peripheral circulatory disorder (CMS/HCC V24, CMS/HCC V28); Diabetic mononeuropathy simplex (CMS/HCC V24, CMS/HCC V28); Dermatophytosis of nail from Last 3 Months Social History Tobacco [...] Care Team (Late st Contact Info) Description 09/29/2024 10:30 AM EDT Office Visit Orthopedic [facility] - [place] [address] [phone] Ravindra Gan, DPM [address] [address] Health Maintenance Due Date Last Done Comments [...] Insurance MEDICAID - [place] MEDICARE Care Teams Staffing Director Relationship Specialty Start Date End Date Kimi Patino MD [address] [place] [address] PCP - General 06/06/15
== END 2024-07-12 12:40 | disposition home or self-care (01) ==
LOC: HO.HUSH 11:59
PROVIDERS: PCP Internal Medicine; Visit Provider Nurse Practitioner Family
DX: N39.0 Urinary tract infection, site not specified (principal); N31.9 Neuromuscular dysfunction of bladder, unspecified; R33.9 Retention of urine, unspecified; N13.30 Unspecified hydronephrosis; N13.70 Vesicoureteral-reflux, unspecified; Z13.9 Encounter for screening, unspecified
CPT/HCPCS: 99214; G2211

== ENCOUNTER 2024-07-12 11:58 | Outpatient (REF) | payer MEDICARE, MEDICAID, SELFPAY ==
--- OUTSIDE RECORDS SUMMARY | 2024-07-12 13:00 | XMS_ITS | Clinical Summary ---
Author Organization 175 [facility] Address [address] [place] [address] Phone Care Team Providers Care Casting And Pasting Supervisor Name Role Phone Kimi Patino MD Primary Care Provider [phone] Allergies Active Allergy Reactions Criticality Noted Date Comments Aspirin Hives,Other 2020 Ciprofloxacin Nausea And Vomiting 02/19/2022 Fish Containing Products 01/21/2022 Penicillins Hives,Other 2020 Sulfamethoxazole Nausea And Vomiting 05/04/2023 Trimethoprim Nausea And Vomiting 05/04/2023 Encounters Date Type Department Care Team Description 06/28/2024 11:00 AM EDT Office Visit Orthopedic Surgery [facility] [address] [address] Ravindra Gan, SILVIA Acquired hammer [...] AM EDT Office Visit Orthopedic Surgery - [place] [address] [phone] Ravindra Gan, DPM [address] [address] Health Maintenance Due Date Last Done Comments [...] Insurance [place] - [place] MEDICARE Care Teams Casting And Pasting Supervisor Relationship Specialty Start Date End Date Kimi Patino MD [address] [place] [address] PCP - General 06/06/15
--- OUTSIDE RECORDS SUMMARY | 2024-07-12 13:00 | XMS_ITS | Clinical Summary ---
Author Organization [facility] Address [address] [address] Phone Care Team Providers Care Motorman/Woman Name Role Phone Kimi Patino MD Primary Care Provider [phone] Allergies Active Allergy Reactions Criticality Noted Date [...] Orders Only [facility] P.. [address] [phone] MD Stage 3b chronic kidney disease (HCC); Persistent proteinuria; Hyponatremia; Hypertension; Hyperkalemia; Type 2 diabetes mellitus with complication, not otherwise specified (HCC) 06/28/2024 Documentation Only [facility]. [address] [phone] MD No Show (No show/) [...] [facility] [address] [phone] MD [address] [phone] Health Maintenance Due Date Last Done Comments [...] to complete this topic Insurance Medicare Medicaid [place] Medicaid [place] Medicare Care Teams Motorman/Woman Relationship Specialty Start Date End Date Kimi Patino MD [address] [place] [address] PCP - General 03/13/20
--- OUTSIDE RECORDS SUMMARY | 2024-07-12 13:00 | XMS_ITS | Encounter Summary ---
Author Organization [facility] Address 100 [facility] [address] [place] [address] Phone Care Team Providers Care Marketing Systems Manager Name Role Phone Kimi Patino MD Primary Care Provider [phone] Encounter Details Date Type Department Care Team ([facility] Contact Info) Description 07/05/2020 Orders Only [facility] [address] [address] Provider, MD Brii [address] [place] [address] Social History Tobacco Use Types Packs/Day Years [...] Visit [facility] [address] [phone] MD 2487 [facility] [address] [place] [address] documented as of this encounter [...] l Result * EXT RESULT ENTRY (06/30/2020) [facility] Provider MD LAB BLOOD ORDERABLES Dora l Result documented in this encounter Visit Diagnoses Not on filedocumented in this encounter Care Teams Marketing Systems Manager Relationship Specialty Start Date End Date Kimi Patino MD [address] [place] [address] PCP - General 03/13/20 documented as of this encounter
== END 2024-07-12 11:59 | disposition home or self-care (01) ==
LOC: HO.LNP 11:58
PROVIDERS: PCP Internal Medicine; Visit Provider Nurse Practitioner Family
DX: N39.0 Urinary tract infection, site not specified (principal); N31.9 Neuromuscular dysfunction of bladder, unspecified; R33.9 Retention of urine, unspecified; N13.30 Unspecified hydronephrosis; N13.70 Vesicoureteral-reflux, unspecified
CPT/HCPCS: 81003; 87086; 99212

== ENCOUNTER 2024-07-13 11:12 | Outpatient (AMB) | payer MEDICARE, MEDICAID, SELFPAY ==
--- NOTE | 2024-07-13 10:17 | MHC.NURWM ---
Intake Intake Visit Reasons: DM Allergies aspirin [ASPIRIN] Allergy (Severe, Verified 07/12/24 21:10) Swelling, rash fish derived [FISH] Allergy (Mild, Verified 07/12/24 21:10) Rash, Swelling Penicillins [PENICILLINS] Allergy (Unknown, Verified 07/12/24 21:10) Swelling Coding
--- NOTE | 2024-07-13 10:19 | A.OFFVIS_ITS ---
Vital Signs 07/13/24 11:16 Height 4 ft 10 in Weight 130 lb 1.164 oz BMI 27.2 BP 144/82 H Blood Pressure Location Rt brachial Position Sitting Pulse 71 Pulse Source Pulse Oximeter Pulse Oximetry (%) 100 Oxygen Delivery Method Room Air Intake Visit Reasons: DM Intake Note: Patient presents today for a follow-up Type 2 Diabetes Mellitus: Last Diabetic eye exam was on: DUE Last Podiatry exam was on: 06/28/[address] [place] [address] DR Gan. Most recent HbA1c: 8.4%, 07/13/2024 Random Glucose- 193 mg/dL, Today Lab Nurse Required: Yes Lab Nurse Language: Poultry Cutter Services: Lab Nurse Offered & Declined Lab Nurse Name: Daughter Accompanied by: Daughter Allergies aspirin [ASPIRIN] Allergy (Severe, Verified 07/13/24 11:19) Swelling, rash fish derived [FISH] Allergy (Mild, Verified 07/13/24 11:19) Rash, Swelling Penicillins [PENICILLINS] Allergy (Unknown, Verified 07/13/24 11:19) Swelling HPI Comments Details: 73 YO F with PMHx T2DM, Osteoporosis and hyperprathyroidism who is seen in F/U for T2DM. She was last seen by myself 11/06/2023 for diabetes at which time her sliding scale coverage for meals was increased to lower sugars postprandial She was last seen by 01/07/2024 for osteoporosis status post 1-1/2 years of treatment of Prolia with subsequent normal bone density. She was released for osteoporosis to the care of her primary care provider with recommendations to obtain a bone density in 2 years. Most recent PTH was wnl. Hemoglobin A1c 07/13/24 01/07/24 8.2 % 11/05/23 9.2%. Initially diagnosed with T2DM in 1989. Was initially started on treatment with Metformin. This was stopped due to CKD Stage III. GLP-1 contraindicated due to family history of pancreatic cancer. Took Trulicity a few yrs ago but stopped for unclear reasons Current regimen Lantus 30 units qAM and Humalog sliding scale insulin lispro subcutaneously 3 times a day; 100-150 10 units, 151-200 12 units, 201-250 12 units >250 14 units Freestyle trey sensor 3 average glucose: 192 14 day continuous glucose sensor report reviewed Glucose Management indicator 7.9 % TIme in ranges: Sixteen % very high (above 250) 38 % high (181-250) 46 % in range (70-180] 0 % low (69-55) 0 % very low (below 54) Interpretation of CGMS: Readings running 40 points higher than target some postprandial excursions Treats lows with juice. Checks sugar after to ensure it is rising. No recent lows. Family history of T2DM in her parents. Has eyes checked yearly, 1 year ago, Needs to make appt, denies retinopathy. Daughter to make appt Has neuropathy, sees podiatry every 2 months consistent with this but needs to find new water control station engineer Daughter will call us with name of water control station engineer for referral Follows with Nephrology. Stable with improved EGFR. UAC 115.8 06/12/2022 most recent CR done 01/07/24 1.88 down from 2.35 Last seen several months ago with follow up scheduled in 4 months Has HLD, on Atorvastatin 40 mg PO daily. Last LDL 69 01/07/24 Denies CAD. Diet: Does not follow a low carb diet. Weight: Stable. Had diabetes education. 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 Mother Pancreatic cancer Social History Household Members: Family Housing: Apartment Do you presently have visiting nurse or other home services: No Alcohol intake: current Alcohol intake frequency: holidays/special occasions only Patient Tobacco Use Status: Never used Tobacco e-Cigarette/Vaping Use: Never Used Second Hand Smoke Exposure: No Advance Directives Date on File: 02/04/20 service: No Current occupational status: unemployed Cognitive needs: No Hearing needs: No Vision needs: Yes Physical Exam Vital Signs: Last Vital Signs Pulse 71 07/13/24 11:16 BP 144/82 H 07/13/24 11:16 Pulse Ox 100 07/13/24 11:16 Oxygen Delivery Method Room Air 07/13/24 11:16 BMI result Body Mass Index 27.2 Const Other: Absence of Cushingoid features. Absence of acromegalic features. Neck exam reveals nl size thyroid about 15 gms. No thyroid nodules palpable. Heart S1 S2, Reg R/R. No M/R G. Skin exam reveals absence of vitiligo or acanthosis nigricans. Visual exam of foot performed. No ulcerations or open lesions. No inter digit maceration or fissuring. No onychomycosis, no callouses. Sensation intact to monofilament exam. Vibratory sensation is normal with 128 Hz tuning fork. Results AMB Hemoglobin A1c AMB Hemoglobin A1c 8.4 % Last Edit by KARMEN Baker on 07/13/24 11:34 Results Reviewed Results Reviewed: Laboratory Last Values Glucose (Clinic) 193 mg/dL (60-115) H 07/13/24 11:23 Hgb A1c (Clinic) 8.4 % (4.0-6.0) H 07/13/24 11:33 Assessment & Plan Assessment & Plan (1) Diabetes type 2, uncontrolled: Code(s): E11.65 - Type 2 diabetes mellitus with hyperglycemia Category: Medical Qualifiers: Glycemic state: with hyperglycemia Qualified Code(s): E11.65 - Type 2 diabetes mellitus with hyperglycemia Plan: 74-year-old type 2 diabetic with neuropathy and nephropathy followed by Nephrology with the an A1c of 7.9% Increase Lantus to 32 units Increase sliding scale by 2 units The patient had an opportunity to ask questions regarding treatment plan. The patient expressed understanding and agreement with the above treatment plan. The patient is aware they should contact our office by phone for worsening glucose readings or for any low blood sugars which may warrant a change in diabetes medication. Compliance is encouraged with medications and any followup testing/consults which may have been ordered. Orders: Orders AMB Hemoglobin A1c Today E11.65 - Type 2 diabetes mellitus with hyperglycemia Medications: Changed From Basaglar KwikPen U-100 Insulin (insulin glargine) 30 units (0.3 mL) subcut QPM 90 days 30 mL 3RF NS To Basaglar KwikPen U-100 Insulin (insulin glargine) 32 units (0.32 mL) subcut QPM 90 days 30 mL 3RF NS From Admelog SoloStar U-100 Insulin (insulin lispro) tid with meals 100-150 10 units 151-250 12 units over 250 14 units subcutaneously use as directed; 90 days 45 mL 3RF MDD 48 units NS To Admelog SoloStar U-100 Insulin (insulin lispro) tid with meals 100-150 12 units 151-250 14 units over 250 16 units subcutaneously use as directed; 90 days 45 mL 3RF MDD 48 units NS Patient Instructions: The patient was counseled to achieve a target A1C of 7% (154 avg). Fasting blood sugars should be 90-130 in the morning and less than 180 two hours after meals. Reviewed the relationship between poor diabetic control and the development of complications. Take 15 carb carbohydrate grams to treat a low sugar (3-4 glucose tablets, half a glass of juice or 15 carbohydrate grams of soft candy such as gummie snacks). Recheck your sugar in 15 minutes and re-treat again with 15 carbohydrate grams if low or still with symptoms. Do not drive a car or operate machinery if you do not know what your blood sugar is, if it is low or in excess of 300. The patient was counseled to achieve a target A1C of 7% (154 avg). Fasting blood sugars should be 90-130 in the morning and less than 180 two hours after meals. Reviewed the relationship between poor diabetic control and the development of complications. Coding Level of Care Code Est Pt Level 4 (81611) Complex EM visit Add On G2211 Diagnoses Uncontrolled type 2 diabetes mellitus with hyperglycemia E11.65 Glycemic state: with hyperglycemia
[2024-07-13 11:16] VITALS: BP 144/82; PULSE 71; O2SAT 100; BMI 27.2
[2024-07-13 11:27] LABS: Glucose, Whole Blood 193 mg/dL (60-115)
--- OUTSIDE RECORDS SUMMARY | 2024-07-13 12:39 | XMS_ITS | Clinical Summary ---
Author Organization [facility] Address [address] [place] [address] Phone Care Team Providers Care Trust Mail Clerk Name Role Phone Kimi Patino MD Primary Care Provider [phone] Allergies Active Allergy Reactions Criticality Noted Date Comments Aspirin Hives,Other 2020 Ciprofloxacin Nausea And Vomiting 02/19/2022 Fish Containing Products 01/21/2022 Penicillins Hives,Other 2020 Sulfamethoxazole Nausea And Vomiting 05/04/2023 Trimethoprim Nausea And Vomiting 05/04/2023 Encounters Date Type Department Care Team Description 06/28/2024 11:00 AM EDT Office Visit Orthopedic Surgery [facility] [address] [address] Ravindra Gan, SILVIA Acquired hammer [...] AM EDT Office Visit Orthopedic Surgery - [place] [address] [phone] Ravindra Gan, DPM [address] [address] Health Maintenance Due Date Last Done Comments [...] Insurance MEDICAID - [place] MEDICARE Care Teams Trust Mail Clerk Relationship Specialty Start Date End Date Kimi Patino MD [address] [place] [address] PCP - General 06/06/15
--- OUTSIDE RECORDS SUMMARY | 2024-07-13 12:39 | XMS_ITS | Encounter Summary ---
Author Organization [facility] Address [address] [facility] [address] [place] [address] Phone Care Team Providers Care Pellet Mill Operator Name Role Phone Kimi Patino MD Primary Care Provider Encounter Details Date Type Department Care Team ([facility] Contact Info) Description 07/05/2020 Orders Only [facility] [address] [phone] Provider, MD Brii [address] [place] [id number] Social History Tobacco Use Types Packs/Day Years [...] Visit [facility] [address] [phone] MD [address] [facility] [address] [place] [address] documented as of this [...] l Result * EXT RESULT ENTRY (06/30/2020) [facility] Provider MD LAB BLOOD ORDERABLES Dora l Result documented in this encounter Visit Diagnoses Not on filedocumented in this encounter Care Teams Pellet Mill Operator Relationship Specialty Start Date End Date Kimi Patino MD [address] [place] [id number] PCP - General 03/13/20 documented as of this encounter
--- OUTSIDE RECORDS SUMMARY | 2024-07-13 12:39 | XMS_ITS | Clinical Summary ---
Author Organization [facility] Address [address] [address] Phone Care Team Providers Care Surgery Scheduler Name Role Phone Kimi Patino MD Primary Care Provider [phone] Allergies Active Allergy Reactions Criticality Noted Date [...] Orders Only [facility] [address] [phone] MD Stage 3b chronic kidney disease (HCC); Persistent proteinuria; Hyponatremia; Hypertension; Hyperkalemia; Type 2 diabetes mellitus with complication, not otherwise specified (HCC) 06/28/2024 Documentation Only [facility] [address] [phone] MD No Show (No show/) [...] Office Visit [facility] [address] [phone] MD [address] [phone] Health Maintenance Due Date Last Done Comments [...] to complete this topic Insurance Medicare Medicaid [place] Medicare Care Teams Surgery Scheduler Relationship Specialty Start Date End Date Kimi Patino MD [address] [place] [address] PCP - General 03/13/20
== END 2024-07-13 11:45 | disposition home or self-care (01) ==
LOC: HO.ENCR 11:12
PROVIDERS: PCP Internal Medicine; Visit Provider Nurse Practitioner Adult Health
DX: E11.65 Type 2 diabetes mellitus with hyperglycemia (principal)
CPT/HCPCS: 99214; G2211

== ENCOUNTER → 2024-07-13 11:12 | Outpatient (BNVA) | payer MEDICARE, MEDICAID, SELFPAY | PROVIDERS: PCP Internal Medicine; Visit Provider Nurse Practitioner Adult Health | DX: E11.65 Type 2 diabetes mellitus with hyperglycemia (principal) | CPT/HCPCS: 82947; 83036; 99212 ==

== ENCOUNTER 2024-07-14 12:19 | Outpatient (AMB) | payer MEDICARE, MEDICAID, SELFPAY ==
--- NOTE | 2024-07-14 12:24 | MHC.PC.OV ---
Vital Signs 07/14/24 12:25 Height 4 ft 10 in Weight 131 lb 8 oz BMI 27.5 BP 110/60 Blood Pressure Location Rt brachial Position Sitting Pulse 77 Pulse Source Pulse Oximeter Pulse Oximetry (%) 100 Oxygen Delivery Method Room Air Intake Visit Reasons: having problems walking Banquet Lead Required: No Allergies aspirin [ASPIRIN] Allergy (Severe, Verified 07/14/24 12:27) Swelling, rash fish derived [FISH] Allergy (Mild, Verified 07/14/24 12:27) Rash, Swelling Penicillins [PENICILLINS] Allergy (Unknown, Verified 07/14/24 12:27) Swelling Medication List - Last Reconciled 07/14/24 by Kimi Patino MD acetaminophen 650 mg PO Q6H PRN Admelog SoloStar U-100 Insulin (insulin lispro) tid with meals 100-150 12 units 151-250 14 units over 250 16 units subcutaneously use as directed; 90 days MDD 48 units NS ascorbate calcium (vitamin C) 500 mg PO DAILY 90 days atorvastatin 40 mg PO DAILY Basaglar KwikPen U-100 Insulin (insulin glargine) 32 units (0.32 mL) subcut QPM 90 days NS [Bedside commode As directed] blood sugar diagnostic (FreeStyle Lite Strips) As directed three times a day blood-glucose meter (FreeStyle Lite Meter kit) As directed 4x/day cholecalciferol (vitamin D3) 50 mcg PO DAILY 30 days clopidogrel 75 mg PO DAILY cyanocobalamin (vitamin B-12) (Vitamin B-12) 1,000 mcg PO DAILY flash glucose sensor (FreeStyle Angela 2 Sensor kit) Once every 14 days furosemide 20 mg PO DAILY lancets As directed lansoprazole 30 mg PO DAILY levothyroxine 88 mcg PO DAILY metoprolol succinate ER 25 mg PO BID pen needle, diabetic (BD Denisa 2nd Gen Pen Needle) USE DIRECTED FOUR TIMES DAILY [raised toilet seat with arms As directed] [Shower chair with arms As directed] [walker with seat and breaks As directed] Tobacco use date assessed: 07/14/24 Fall risk assessment: No Falls in past year Last assessed Fall Risk: 07/14/24 Dental Screening Dental Screen Date: 07/14/24 Did you have a dental visit in the last 12 months?: No Did you have a dental problem in the last 6 months where you did not have access to dental care?: No Was dental information given to patient?: Patient declined HPI having problems walking HPI Details History - The patient is a 74-year-old female presenting with difficulty lifting her legs and numbness in her legs. - The patient reports that her difficulty in lifting her legs began recently and is associated with her neuropathy. - The neuropathy is attributed to her diabetes mellitus, which is a chronic condition she has been managing. - The patient reports having experienced these symptoms before and underwent physical therapy, which was beneficial in the past. - The patient is also following up with a neurologist, although she has not spoken with them regarding this recent exacerbation. - Additional information includes known anemia secondary to hemorrhoids, with a hemoglobin level previously recorded as 10.8. The patient had a recent A1c check with results showing 8.4. 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 Quevedo for the management of chronic abdominal discomfort Dr. Ferrell for the management of diabetes and hypothyroidism Patient is dependent on her daughter for her care She uses walker for ambulation She is on atorvastatin 40 mg for lipid control Frusemide 20 mg for ankle swelling Metoprolol 25 mg b.i.d. for her heart Also taking Eliquis These medications from PCP office She is also incontinent of urine and feces and wears diapers Problem List - Neuropathy - Diabetes Mellitus - Anemia of chronic disease - Gastroesophageal Reflux Disease (GERD) - Hypothyroidism - Hypertension - Hemorrhoids - long-term use blood thinners - heaviness in legs - walker dependent - confusion off and on - lipid disorder Patient Instructions - Follow up with the neurologist regarding numbness and difficulty lifting legs. - Continue current medications as prescribed: Atorvastatin, long-acting insulin, and Levothyroxine. - Proceed with ordered laboratory tests, including liver enzymes and kidney function, before upcoming kidney specialist appointment. - Ensure physical therapy and gait training sessions are set up. - Monitor for any new or worsening symptoms and report them promptly. 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 x3 Skin: Normal turgor, no rashes PFSH Medical History Colonoscopy refused Abnormal SPEP Personal history of malignant neoplasm of uterus Subcutaneous mass T2DM (type 2 diabetes mellitus) Urinary retention with incomplete bladder emptying Osteoporosis Elevated liver enzymes Hypoglycemia Hyperparathyroidism Serum calcium elevated CKD stage 3 due to type 2 diabetes mellitus 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 Mother Pancreatic cancer Social History Household Members: Family Housing: Apartment Do you presently have visiting nurse or other home services: No Alcohol intake: current Alcohol intake frequency: holidays/special occasions only Patient Tobacco Use Status: Never used Tobacco e-Cigarette/Vaping Use: Never Used Second Hand Smoke Exposure: No Advance Directives Date on File: 02/04/20 service: No Current occupational status: unemployed Cognitive needs: No Hearing needs: No Vision needs: Yes Questionnaire PHQ-9 Over the last 2 weeks, how often have you been bothered by any of the following problems? 1. Little interest or pleasure in doing things: not at all 2. Feeling down, depressed, or hopeless: several days 3. Trouble falling or staying asleep, or sleeping too much: several days 4. Feeling tired or having little energy: several days 5. Poor appetite or overeating: not at all 6. Feeling bad about yourself - or that you are a failure or have let yourself or your family down: not at all 7. Trouble concentrating on things, such as reading the newspaper or watching television: several days 8. Moving or speaking so slowly that other people could have noticed. Or the opposite - being so fidgety or restless that you have been moving around a lot more than usual: not at all 9. Thoughts that you would be better off or of hurting yourself in some way: not at all Total score: 4 Depression Screening Interpretation: Negative Depression Screening Done: Yes 22059 - PHQ-9 Billing: Yes Source: Developed by Drs. Sae Nickerson, Tiffanie Andre, Giovani Chakraborty and colleagues, with an educational elsie from [employer]. Thrive Questionnaire Date Thrive assessed: 07/14/24 I am a: Patient What is your living situation today?: I have a steady place to live Within the past 12 months, did the food you bought not last and you didn't have the money to get more?: Never true Within the past 12 months, did you worry whether your food would run out before you got money to buy more?: Never true Do you have trouble paying for medicines?: No Do you have trouble getting transportation to medical appointments?: Yes Do you have trouble paying your heating and electricity bill?: No Do you have trouble taking care of your child, family member or friend?: I choose not to answer this question Do you have trouble with day-to-day activities such as bathing, preparing meals, shopping, managing finances, etc.?: Yes Are you currently unemployed and looking for a job?: No Are you interested in more education?: No Please select the resources that you would like help with: None Currently or been in a relationship where the following occur: No concerns reported THRIVE Score: 1 AUDIT C Alcohol Use Questionnaire (AUDIT-C) 1. How often do you have a drink containing alcohol?: Never 3. How often do you have six or more drinks on one occasion?: Never Total Score: 0 Score Reviewed/Action Taken: Yes VINCENZO-7 AMB Questionnaire VINCENZO-7 Date VINCENZO - 7 assessed: 07/14/24 Feeling nervous, anxious, or on edge: 1 = Several days Not being able to stop or control worryin = Not at all Worrying too much about different things: 0 = Not at all Trouble relaxin = Several days Being so restless that it is hard to sit still: 1 = Several days Becoming easily annoyed or irritable: 1 = Several days Feeling afraid as if something awful might happen: 0 = Not at all Total VINCENZO-7 score (0-4 normal; 5-9 mild; 10-14 moderate; 15-21 severe): 4 Source: Developed by Drs. Sae Nickerson, Tiffanie Andre, Giovani Chakraborty and colleagues, with an educational elsie from [employer]. VINCENZO-7 Assessment Billing VINCENZO-7 Assessment Tool: VINCENZO-7 Assessment 41135 Physical exam (Primary Care) Vital Signs: Last Vital Signs Pulse 77 07/14/24 12:25 BP 110/60 07/14/24 12:25 Pulse Ox 100 07/14/24 12:25 Oxygen Delivery Method Room Air 07/14/24 12:25 BMI result Body Mass Index 27.5 Tobacco/Smoking Status: Tobacco use Status Tobacco use date assessed 07/14/24 07/14/24 12:28 Patient Tobacco Use Status Never used Tobacco 07/14/24 12:25 e-Cigarette/Vaping Use Never Used 07/14/24 12:25 PHQ-9: PHQ-9 Score PHQ-9: Total score 4 07/14/24 12:43 Depression Screening Interpretation: Negative Thrive Assessment: Date of Thrive Assessment Date Thrive assessed 07/14/24 07/14/24 12:28 Currently or been in a relationship where the following occur: No concerns reported Coding Level of Care Code Est Pt Level 4 (21796) Complex EM visit Add On G2211 Diagnoses Lipid disorder E78.9 Type 2 diabetes mellitus without complication, without long-term current 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 E11.9 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 insulin use: without 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 use Diabetes mellitus complication status: without complication Bleeding hemorrhoids K64.9 Gait disturbance R26.9 Leg weakness, bilateral R29.898 CKD stage 3 due to type 2 diabetes mellitus E11.22; N18.30 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 Z79.4 Hx of 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 use of blood thinners Z92.29 History of CVA (cerebrovascular accident) Z86.73 NAVARRO (nonalcoholic steatohepatitis) K75.81 LFT elevation R79.89 Diabetic polyneuropathy associated with type 2 diabetes mellitus E11.42 Diabetes mellitus type: type 2 Diabetes mellitus complication detail: diabetic polyneuropathy Additional Codes VINCENZO-7 Assessment Billing - VINCENZO-7 Assessment Tool: VINCENZO-7 Assessment 49616 ([id number]) PHQ-9 - 71568 - PHQ-9 Billing: Yes ([id number]) Assessment & Plan Assessment & Plan (1) Lipid disorder: Code(s): E78.9 - Disorder of lipoprotein metabolism, unspecified Category: Medical (2) T2DM (type 2 diabetes mellitus): Code(s): E11.9 - Type 2 diabetes mellitus without complications Category: Medical Qualifiers: Diabetes mellitus fci insulin use: without 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 use Diabetes mellitus complication status: without complication Qualified Code(s): E11.9 - Type 2 diabetes mellitus without complications (3) Bleeding hemorrhoids: Comment: internal and external Code(s): K64.9 - Unspecified hemorrhoids Category: Medical (4) Gait disturbance: Code(s): R26.9 - Unspecified abnormalities of gait and mobility Category: Medical (5) Leg weakness, bilateral: Code(s): R29.898 - Other symptoms and signs involving the musculoskeletal system Category: Medical (6) CKD stage 3 due to type 2 diabetes mellitus: Code(s): E11.22 - Type 2 diabetes mellitus with diabetic chronic kidney disease; N18.30 - Chronic kidney disease, stage 3 unspecified Category: Medical (7) nursing home (current) 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: Code(s): Z79.4 - nursing home (current) 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 Category: Medical (8) Hx of 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 use of blood thinners: Code(s): Z92.29 - Personal history of other drug therapy Category: Medical (9) History of CVA (cerebrovascular accident): Code(s): Z86.73 - Personal history of transient ischemic attack (TIA), and cerebral infarction without residual deficits Category: Medical (10) NAVARRO (nonalcoholic steatohepatitis): Code(s): K75.81 - Nonalcoholic steatohepatitis (NAVARRO) Category: Medical (11) LFT elevation: Code(s): R79.89 - Other specified abnormal findings of blood chemistry Category: Medical (12) Diabetic neuropathy: Code(s): E11.40 - Type 2 diabetes mellitus with diabetic neuropathy, unspecified Category: Medical Qualifiers: Diabetes mellitus type: type 2 Diabetes mellitus complication detail: diabetic polyneuropathy Qualified Code(s): E11.42 - Type 2 diabetes mellitus with diabetic polyneuropathy Plan Patient is 73-year-old female came in today for Medicare wellness visit and her regular follow-up appointment Patient is seeing number of other providers as well Suffers from multiple medical problems including uncontrolled diabetes and worsening nephropathy Recent labs shows creatinine of 2.25 with GFR of [address] 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 Quevedo for the management of chronic abdominal discomfort Dr. Ferrell for the management of diabetes and hypothyroidism She had mammogram done March of this year and bone density July of this year, bone density showed normal report. Patient is dependent on her daughter for her care She uses walker for ambulation She is on atorvastatin 40 mg for lipid control Frusemide 20 mg for ankle swelling Metoprolol 25 mg b.i.d. for her heart These medications from PCP office Since patient is seeing other providers frequently and having labs done through them She comes here for follow-up once a year when she is due for Medicare wellness She is also incontinent of urine and feces and wears diapers Orders: Orders Complete Blood Count Auto Diff Today E11.9 - Type 2 diabetes mellitus without complications, E78.9 - Disorder of lipoprotein metabolism, unspecified, K64.9 - Unspecified hemorrhoids, R26.9 - Unspecified abnormalities of gait and mobility LDL Cholesterol Direct Today E11.9 - Type 2 diabetes mellitus without complications, E78.9 - Disorder of lipoprotein metabolism, unspecified, K64.9 - Unspecified hemorrhoids, R26.9 - Unspecified abnormalities of gait and mobility TSH reflex Free T4 Today E11.9 - Type 2 diabetes mellitus without complications, E78.9 - Disorder of lipoprotein metabolism, unspecified, K64.9 - Unspecified hemorrhoids, R26.9 - Unspecified abnormalities of gait and mobility Comprehensive Met. Panel Today E11.9 - Type 2 diabetes mellitus without complications, E78.9 - Disorder of lipoprotein metabolism, unspecified, K64.9 - Unspecified hemorrhoids, R26.9 - Unspecified abnormalities of gait and mobility PT Evaluation and Treatment Today R26.9 - Unspecified abnormalities of gait and mobility, R29.119 - Other symptoms and signs involving the musculoskeletal system
[2024-07-14 12:25] VITALS: BP 110/60; PULSE 77; O2SAT 100; BMI 27.5
--- OUTSIDE RECORDS SUMMARY | 2024-07-14 12:51 | XMS_ITS | Clinical Summary ---
Author Organization [address] [facility] Address [address] [place] [address] Phone Care Team Providers Care Lidder Name Role Phone Kimi Patino MD Primary Care Provider [phone] Allergies Active Allergy Reactions Criticality Noted Date Comments Aspirin Hives,Other 2020 Ciprofloxacin Nausea And Vomiting 02/19/2022 Fish Containing Products 01/21/2022 Penicillins Hives,Other 2020 Sulfamethoxazole Nausea And Vomiting 05/04/2023 Trimethoprim Nausea And Vomiting 05/04/2023 Encounters Date Type Department Care Team Description 06/28/2024 11:00 AM EDT Office Visit Orthopedic Surgery [facility] [address] [address] Ravindra Gan, SILVIA Acquired hammer [...] AM EDT Office Visit Orthopedic Surgery - [place] [address] [phone] Ravindra Gan, DPM [address] [address] Health Maintenance Due Date Last Done Comments [...] Insurance MEDICAID - [place] MEDICARE Care Teams Lidder Relationship Specialty Start Date End Date Kimi Patino MD [address] [place] [address] PCP - General 06/06/15
--- OUTSIDE RECORDS SUMMARY | 2024-07-14 12:51 | XMS_ITS | Encounter Summary ---
Author Organization [facility] Address [address] [facility] [address] [place] [address] Phone Care Team Providers Care Powder Compounder Name Role Phone Kimi Patino MD Primary Care Provider [phone] Encounter Details Date Type Department Care Team ([facility] Contact Info) Description 07/05/2020 Orders Only [facility] [address] [address] Provider, MD Brii [address] [place] [phone] Social History Tobacco Use Types Packs/Day Years [...] Visit [facility] [address] [address] MD [address] [facility] [address] [place] [address] documented as of this encounter [...] l Result * EXT RESULT ENTRY (06/30/2020) [facility] Provider MD LAB BLOOD ORDERABLES Dora l Result documented in this encounter Visit Diagnoses Not on filedocumented in this encounter Care Teams Powder Compounder Relationship Specialty Start Date End Date Kimi Patino MD [address] [place] [id number] PCP - General 03/13/20 documented as of this encounter
--- OUTSIDE RECORDS SUMMARY | 2024-07-14 12:51 | XMS_ITS | Clinical Summary ---
Author Organization [facility] Address [address] [address] Phone Care Team Providers Care Tissue Rewinder Name Role Phone Kimi Patino MD Primary Care Provider [phone] Allergies Active Allergy Reactions Criticality Noted Date [...] Orders Only [facility] [address] [phone] MD Stage 3b chronic kidney disease (HCC); Persistent proteinuria; Hyponatremia; Hypertension; Hyperkalemia; Type 2 diabetes mellitus with complication, not otherwise specified (HCC) 06/28/2024 Documentation Only [facility]. [address] [phone] MD No Show (No show/) [...] Office [facility] [address] [address] MD [address] [address] Health Maintenance Due Date Last Done Comments [...] to complete this topic Insurance Medicare Medicaid [place] Medicaid [place] Medicare Care Teams Tissue Rewinder Relationship Specialty Start Date End Date Kimi Patino MD [address] [place] [address] PCP - General 03/13/20
== END 2024-07-14 13:07 | disposition home or self-care (01) ==
LOC: HO.HMCC 12:20
PROVIDERS: PCP Internal Medicine; Visit Provider Internal Medicine
DX: E78.9 Disorder of lipoprotein metabolism, unspecified (principal); E11.22 Type 2 diabetes mellitus with diabetic chronic kidney disease; K64.9 Unspecified hemorrhoids; R26.9 Unspecified abnormalities of gait and mobility; R29.898 Other symptoms and signs involving the musculoskeletal system; N18.30 Chronic kidney disease, stage 3 unspecified; Z79.4 Long term (current) 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; Z92.29 Personal history of other drug therapy; Z86.73 Personal history of transient ischemic attack (TIA), and cerebral infarction without residual deficits; K75.81 Nonalcoholic steatohepatitis (NASH); R79.89 Other specified abnormal findings of blood chemistry; E11.42 Type 2 diabetes mellitus with diabetic polyneuropathy

== ENCOUNTER 2024-07-14 12:19 | Outpatient (REF) | payer MEDICARE, MEDICAID, SELFPAY ==
[2024-07-14 16:15] LABS: MANUAL DIFF FLAG NO
[2024-07-14 16:21] LABS: Basophils Percent Auto 0.6 % (0-2); Eosinophils Absolute Auto 0.1 X10*3/uL (0.0-0.4); Eosinophils Percent Auto 1.9 % (0-4); Hemoglobin 10.6 g/dl (12.0-16.0); Imm Gran Abs Auto 0.01 X10*3/uL (0.00-0.03); Imm Gran Pct Auto 0.2 % (0.0-0.4); Lymphocytes Absolute Auto 1.3 X10*3/uL (1.2-4.9); Lymphocytes Percent Auto 26.5 % (20-40); Mean Corpuscular HGB Conc 34.2 g/dl (31.0-35.0); Mean Corpuscular Hemoglobin 31.8 pg (27.0-33.0); Mean Corpuscular Volume 93.1 fL (80.0-98.0); Mean Platelet Volume 10.3 fL (9.4-12.3); Monocytes Absolute Auto 0.5 X10*3/uL (0.1-1.2); Monocytes Percent Auto 10.4 % (2-11); Neutrophils Absolute Auto 2.9 x10*3/uL (2.0-8.3); Neutrophils Percent Auto 60.4 % (45-73); Platelet Count 243 X10*3/uL (160-400); Red Blood Count 3.33 X10*6/uL (4.20-5.50); Red Cell Distribution Width 13.2 % (11.0-16.0); White Blood Count 4.8 X10*3/uL (4.8-10.8)
[2024-07-14 16:32] LABS: Blood Urea Nitrogen 48 mg/dL (9-16)
[2024-07-14 19:03] LABS: Alanine Aminotransferase 95 U/L (0-31); Albumin Level 3.8 g/dL (3.5-5.0); Alkaline Phosphatase 309 U/L (39-117); Anion Gap 19 (12-20); Aspartate Amino Transferase 104 U/L (5-31); Bilirubin Total 0.3 mg/dL (0.0-1.0); Blood Urea Nitrogen 50 mg/dL (9-16); Calcium 9.3 mg/dL (8.4-10.2); Carbon Dioxide 14 mmol/L (22-29); Chloride 108 mmol/L (96-108); Estimated Glomerular Filt Rate 24; Glucose Random 124 mg/dL (60-115); Potassium 4.9 mmol/L (3.3-5.1); Sodium 136 mmol/L (135-145); Total Protein 8.5 g/dL (6.5-8.0)
[2024-07-14 19:17] LABS: TSH reflex Free T4 1.62 uIU/mL (0.32-4.0)
[2024-07-15 17:48] LABS: LDL Cholesterol Direct 55 mg/dL (<100)
== END 2024-07-14 12:20 | disposition home or self-care (01) ==
LOC: HO.HMGCLDS 12:19
PROVIDERS: Nurse Practitioner Family; PCP Internal Medicine; Visit Provider Internal Medicine
DX: E78.9 Disorder of lipoprotein metabolism, unspecified (principal); K64.9 Unspecified hemorrhoids; R26.9 Unspecified abnormalities of gait and mobility; R29.898 Other symptoms and signs involving the musculoskeletal system; E11.22 Type 2 diabetes mellitus with diabetic chronic kidney disease; N18.30 Chronic kidney disease, stage 3 unspecified; K75.81 Nonalcoholic steatohepatitis (NASH); R79.89 Other specified abnormal findings of blood chemistry; E11.42 Type 2 diabetes mellitus with diabetic polyneuropathy; Z79.01 Long term (current) use of anticoagulants; Z79.4 Long term (current) 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; Z79.899 Other long term (current) drug therapy; Z86.73 Personal history of transient ischemic attack (TIA), and cerebral infarction without residual deficits; Z92.29 Personal history of other drug therapy
CPT/HCPCS: 36415; 80053; 83721; 84443; 84520; 85025; 96127; 99212

== ENCOUNTER 2024-08-02 10:08 | Inpatient (IN) | payer MEDICARE, MEDICAID, SELFPAY ==
--- NOTE | ~2024-08-02 | MR_ITS ---
EXAMINATION: MR BRAIN WITHOUT CONTRAST CLINICAL INFORMATION: Left-sided weakness. COMPARISON: CT brain for stroke 08/02/2024 TECHNIQUE: MRI of the brain was obtained using routine sequences without contrast. FINDINGS: There is no restricted diffusion seen to suspect any acute ischemic changes. Old infarct right frontoparietal lobe unchanged to the recent CT exam. There is no magnetic susceptibility artifact to suspect acute or chronic hemorrhagic products. The lateral ventricles are symmetrical in size and configuration appropriate for patient's age. No extra-axial fluid collection seen. Normal flow-void signal visualized in major cerebral vasculature. There is mild mucoperiosteal thickening right maxillary sinus. Rest of paranasal sinuses and mastoid air cells are well-aerated. MR/MR head/brain wo con IMPRESSION: No acute intracranial process seen. Right frontoparietal old infarct. No extra-axial bleed or mass seen. Electronically signed by: Kaveh Carlos MD 08/03/2024 01:37 PM EDT
--- NOTE | ~2024-08-02 | CT_ITS ---
EXAMINATION: CT HEAD WITHOUT CONTRAST (STROKE PROTOCOL) CLINICAL INFORMATION: Stroke protocol. COMPARISON: 03/08/2022, 01/16/2022. TECHNIQUE: Contiguous axial imaging was performed from the skull base to vertex without intravenous administration of contrast. This CT examination was performed using dose optimization techniques as appropriate, variously including the following: *Automated exposure control *Adjustment of mA and/or kV according to patient size (this includes techniques or standardized protocols for targeted exams where dose is matched to indication/reason for exam; i.e. extremities or head) *Use of iterative reconstruction technique FINDINGS: There is no evidence of intracranial hemorrhage or extra-axial fluid collection. There is no mass effect, or edema. No CT evidence of acute territorial infarct. Ventricles, sulci, and cisterns are normal in size and configuration for patient age. No hydrocephalus. No midline shift. Negative hyperdense MCA sign. Negative insular ribbon sign. Patchy periventricular and deep white matter hypoattenuation is consistent with mild small vessel ischemic changes. There is an empty sella. There is an old infarct in the right parietal lobe extending into the posterior right frontal lobe, likely involving right MCA/RICO watershed region. Mild atheromatous calcification of the bilateral carotid siphons and V4 segments vertebral arteries bilaterally. Globes and orbital contents image normally. Globes demonstrate lens replacements bilaterally. No extracranial soft tissue abnormalities. The paranasal sinuses, mastoid air cells, and tympanic cavities are normally aerated. No suspicious bony abnormalities. There are no acute fractures evident. CT/CT head for STROKE IMPRESSION: 1. No acute intracranial abnormality. 2. Old right posterior MCA [place] watershed infarction as discussed. This critical result was discussed with Dr. Joellen Yoder via phone call at 10:45 AM on 08/02/2024. It was ascertained that the content and urgency of the report was understood at the time of direct communication. Electronically signed by: Jossue Morocho MD 08/02/2024 10:51 AM EDT
[2024-08-02 10:12] VITALS: BP 142/53; PULSE 88; RESP 18; TEMP 36.4; O2SAT 100; BMI 26.6
[2024-08-02 10:20] VITALS: BMI 26.6
--- NOTE | 2024-08-02 10:29 | ECG_ITS ---
Test Reason : stroke Blood Pressure : */* mmHG Vent. Rate : 85 BPM Atrial Rate : 85 BPM P-R Int : 152 ms QRS Dur : 68 ms QT Int : 352 ms P-R-T Axes : 24 15 22 degrees QTcB Int : 418 ms Normal sinus rhythm Normal ECG When compared with ECG of 16-Jan-2022 10:22, No significant change was found Referred By: Joellen Yoder Electronically Signed By: JOHANNA DORADO
[2024-08-02 10:31] LABS: Prothrombin Time Whole Bld POC 12.2 sec (11.1-13.5)
--- NOTE | 2024-08-02 10:31 | ED_ITS ---
HPI - Neuro Symptoms/Deficit General Chief Complaint: Stroke Stated Complaint: l side weakness hx stroke Time Seen by Provider: 08/02/24 10:26 History of Present Illness HPI Narrative: Patient is a 74-year-old female with a previous history of stroke which left her with left-sided weakness. Have difficulty ambulating. Patient for the last 2 weeks been noticing increasing weakness. More profound this morning. Been family sent patient in for further evaluation patient was noted in the emergency department to have a sugar over 100 has a history of diabetes hypertension has a previous history of stroke no history of [place] history of UTIs in the past. Patient has a history of renal insufficiency baseline creatinine is about 2 from home walks with a walker baseline Related Data Home Medications ?Medication ?Instructions ?Recorded ?Confirmed metoprolol succinate 25 mg 25 mg PO BID 01/13/20 07/14/24 tablet,extended release 24 hr lancets 28 gauge #100 ea 04/25/20 07/14/24 furosemide 20 mg tablet 20 mg PO DAILY 07/20/20 07/14/24 acetaminophen 325 mg tablet 650 mg PO Q6H PRN Pain 01/16/22 07/14/24 Previous Rx's ?Medication ?Instructions ?Recorded cholecalciferol (vitamin D3) 50 50 mcg PO DAILY 30 days #30 caps 01/31/20 mcg (2,000 unit) capsule cyanocobalamin (vitamin B-12) 1,000 mcg PO DAILY #90 tabs 02/22/20 1,000 mcg tablet (Vitamin B-12) blood-glucose meter (FreeStyle #1 ea 04/25/20 Lite Meter kit) walker with seat and breaks #1 ea 05/15/20 Shower chair with arms #1 ea 06/16/20 raised toilet seat with arms #1 ea 06/16/20 Bedside commode #1 ea 11/07/20 flash glucose sensor (FreeStyle #2 ea 11/12/21 Angela 2 Sensor kit) ascorbate calcium (vitamin C) 500 500 mg PO DAILY 90 days #90 tabs 03/11/22 mg tablet blood sugar diagnostic (FreeStyle #100 ea 08/12/22 Lite Strips) lansoprazole 30 mg capsule,delayed 30 mg PO DAILY #30 caps 02/18/23 release pen needle, diabetic 32 gauge x #200 ea 03/12/24 (BD Denisa 2nd Gen Pen Needle) atorvastatin 40 mg tablet 40 mg PO DAILY #90 tabs 04/29/24 levothyroxine 88 mcg tablet 88 mcg PO DAILY #30 tabs 06/09/24 Admelog SoloStar U-100 Insulin 100 See Rx Instructions subcut 07/13/24 unit/mL subcutaneous pen (insulin USEASDIRECTD 90 days #45 mL lispro) Basaglar KwikPen U-100 Insulin 100 32 unit (0.32 mL) subcut QPM 90 07/13/24 unit/mL (3 mL) subcutaneous days #30 mL (insulin glargine) clopidogrel 75 mg tablet 75 mg PO DAILY #90 tabs 07/15/24 Allergies Allergy/AdvReac Type Severity Reaction Status Date / Time aspirin [ASPIRIN] Allergy Severe Swelling, Verified 08/02/24 10:24 rash fish derived [FISH] Allergy Mild Rash, Verified 08/02/24 10:24 Swelling Penicillins [PENICILLINS] Allergy Unknown Swelling Verified 08/02/24 10:24 Review of Systems 2 Review of Systems: Positive weakness Positive unable to ambulate REPLACED BY [facility] Past Medical History Attestation statement: The following information was validated with the patient. Medical History Colonoscopy refused Abnormal SPEP Personal history of malignant neoplasm of uterus Subcutaneous mass T2DM (type 2 diabetes mellitus) Urinary retention with incomplete bladder emptying Osteoporosis Elevated liver enzymes Hypoglycemia Hyperparathyroidism Serum calcium elevated CKD stage 3 due to type 2 diabetes mellitus custodial (current) 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 Bacteremia Vitamin D deficiency Diabetes type 2, uncontrolled History of non anemic vitamin B12 deficiency Iron deficiency anemia Renal tubular acidosis History of uterine fibroid CVA (cerebral vascular accident) Hypothyroidism HTN (hypertension) Hyperlipemia Diabetic neuropathy Diabetes Yeast infection involving the vagina and surrounding area Surgical History History of endoscopy History of colonoscopy History of cataract surgery H/O carotid endarterectomy History of hysterectomy Family History Family History Maternal Grandmother No problems noted. Mother Pancreatic cancer Social History Social History Household Members: Family Housing: Apartment Do you presently have visiting nurse or other home services: No Alcohol intake: current Alcohol intake frequency: holidays/special occasions only Patient Tobacco Use Status: Never used Tobacco e-Cigarette/Vaping Use: Never Used Second Hand Smoke Exposure: No Advance Directives: Yes Advance Directives on File: Yes Advance Directives Date on File: 02/04/20 Do you have a plan to hurt others: No Plan service: No Current occupational status: unemployed Cognitive needs: No Hearing needs: No Vision needs: Yes Physical Exam 2 Vital Signs: Vital Signs: Last Vital Signs Temp 97.5 F 08/02/24 10:12 Pulse 88 08/02/24 10:12 Resp 18 08/02/24 10:12 BP 142/53 H 08/02/24 10:12 Pulse Ox 100 08/02/24 10:12 O2 Del Method Room Air 08/02/24 10:12 BMI result Body Mass Index 26.6 Appearance: Alert. Oriented X3. No acute distress. Eyes: Pupils equal, round and reactive to light. ENT: Pharynx normal. Neck: Normal inspection. Neck supple. No lymph nodes noted. No crepitus CVS: Normal heart rate and rhythm. Pulses normal. Normal S1 and S2 Respiratory: No respiratory distress. Breath sounds normal. No Wheezing. No rales Abdomen: Soft and nontender. No rigidity. No distention. good BS x4 Skin: Skin warm and dry. Normal skin color. Normal skin turgor. Extremities: No lower extremity edema. Neurovascular intact to all extremities. No Lacerations. No Rash Neuro: Oriented X 3. Slight weakness noted in the left upper extremity and left lower extremity has good hand grasp. Can lift up arm against gravity. Medical Decision Making Medical Decision Making MDM Narrative: Patient's sugar was over 100 no evidence for hypoglycemia. Patient's has a history of UTI history of chronic renal insufficiency last known well time was 18:00 yesterday. Not a good candidate for tPA. Weighing the pros and cons the slight increase in weakness that had a last known well time of yesterday at 18:00 considering patient has a history of elevated creatinine at over 2. Elected to hold off on a CTA for now. Patient has no new weakness but seems like the weakness is more severe than previous. Considering patient has a history of UTI this this is probably more likely. Will get electrolytes will check patient's urine. Will monitor carefully. Patient's CT head was grossly negative for any acute evidence of bleeding by my interpretation. Patient's urine appears grossly infected likely the cause of patient's symptoms. After reviewing patient's allergies and previous culture results elected to give patient a dose of Levaquin. Patient to be admitted. Hospitalist team notified. Consulting on the case. In stable condition. Differential Diagnosis Differential Diagnoses: The differential diagnosis associated with the presentation includes Urinary tract infection, TIA, CVA Admission/Observation Consideration of admission/observation: Escalation of care including admission/observation considered Consult Healthcare Provider Management of the patient was discussed with: Hospitalist Lab Data MDM Lab Attestation statement: I reviewed the patient's lab results. 08/02/24 11:43 08/02/24 11:43 Labs: Lab Results 08/02/24 08/02/24 08/02/24 Range/Units 10:21 10:24 11:43 WBC 5.7 (4.8-10.8) X10*3/uL RBC 3.08 L (4.20-5.50) X10*6/uL Hgb 9.7 L (12.0-16.0) g/dl Hct 28.8 L (37.0-47.0) % MCV 93.5 (80.0-98.0) fL MCH 31.5 (27.0-33.0) pg MCHC 33.7 (31.0-35.0) g/dl RDW 13.1 (11.0-16.0) % Plt Count 326 D (160-400) X10*3/uL MPV 9.4 (9.4-12.3) fL Immature Gran % (Auto) 0.4 (0.0-0.4) % Neut % (Auto) 71.9 (45-73) % Lymph % (Auto) 17.5 L (20-40) % [place] % (Auto) 7.9 (2-11) % Eos % (Auto) 1.8 (0-4) % Baso % (Auto) 0.5 (0-2) % Lymph # (Auto) 1.0 L (1.2-4.9) X10*3/uL [place] # (Auto) 0.5 (0.1-1.2) X10*3/uL Eos # (Auto) 0.1 (0.0-0.4) X10*3/uL Baso # (Auto) 0.0 (0.0-0.2) X10*3/uL Abs Immat Gran (auto) 0.02 (0.00-0.03) X10*3/uL Absolute Neuts (auto) 4.1 (2.0-8.3) x10*3/uL Absolute Nucleated RBC 0.000 (0.0-0.012) X10*3/uL Nucleated RBC % (auto) 0.0 (0.0-0.2) /100WBC PT 11.5 (10.9-12.4) SEC Whole Blood PT 12.2 (11.1-13.5) sec INR 1.0 (0.9-1.1) Whole Blood INR 1.0 (0.9-1.1) APTT 28.2 (26.0-36.8) SEC Sodium 137 (135-145) mmol/L Potassium 4.9 (3.3-5.1) mmol/L Chloride 113 H (96-108) mmol/L Carbon Dioxide 16 L (22-29) mmol/L Anion Gap 13 (12-20) BUN 44 H (9-16) mg/dL Creatinine 1.95 H (0.5-1.4) mg/dL Estim Creat Clear Calc 19.6 Estimated GFR 25 POC Glucose 150 H (60-115) mg/dL Random Glucose 165 H (60-115) mg/dL Calcium 9.3 (8.4-10.2) mg/dL Troponin I High Sens 3.0 (<3.5-17.0) ng/L Triglycerides 80 (<150) mg/dL Cholesterol 116 (<200) mg/dL LDL Cholesterol, Calc 51 (<100) mg/dL HDL Cholesterol 49 (>40) mg/dL Urine Color Urine Appearance Urine pH (5.0-9.0) Ur Specific [place] (1.005-1.025) Urine Protein (Neg-Trace) mg/dL Urine Glucose (UA) (Negative) mg/dL Urine Ketones (Negative) mg/dL Urine Blood (Negative) Urine Nitrite (Negative) Ur Leukocyte Esterase (Negative) Urine RBC (0-2) /HPF Urine WBC (0-5) /HPF Ur Squamous Epith Cells (0-2) /HPF Urine Bacteria (None Seen) Hyaline Casts (0-2) /LPF Influenza Type A (PCR) NEGATIVE (Negative) Influenza Type B (PCR) NEGATIVE (Negative) RSV RNA Qual (PCR) NEGATIVE (Negative) SARS-CoV-2 RNA (RT-PCR) NEGATIVE (Negative) 08/02/24 Range/Units 12:34 WBC (4.8-10.8) X10*3/uL RBC (4.20-5.50) X10*6/uL Hgb (12.0-16.0) g/dl Hct (37.0-47.0) % MCV (80.0-98.0) fL MCH (27.0-33.0) pg MCHC (31.0-35.0) g/dl RDW (11.0-16.0) % Plt Count (160-400) X10*3/uL MPV (9.4-12.3) fL Immature Gran % (Auto) (0.0-0.4) % Neut % (Auto) (45-73) % Lymph % (Auto) (20-40) % [place] % (Auto) (2-11) % Eos % (Auto) (0-4) % Baso % (Auto) (0-2) % Lymph # (Auto) (1.2-4.9) X10*3/uL [place] # (Auto) (0.1-1.2) X10*3/uL Eos # (Auto) (0.0-0.4) X10*3/uL Baso # (Auto) (0.0-0.2) X10*3/uL Abs Immat Gran (auto) (0.00-0.03) X10*3/uL Absolute Neuts (auto) (2.0-8.3) x10*3/uL Absolute Nucleated RBC (0.0-0.012) X10*3/uL Nucleated RBC % (auto) (0.0-0.2) /100WBC PT (10.9-12.4) SEC Whole Blood PT (11.1-13.5) sec INR (0.9-1.1) Whole Blood INR (0.9-1.1) APTT (26.0-36.8) SEC Sodium (135-145) mmol/L Potassium (3.3-5.1) mmol/L Chloride (96-108) mmol/L Carbon Dioxide (22-29) mmol/L Anion Gap (12-20) BUN (9-16) mg/dL Creatinine (0.5-1.4) mg/dL Estim Creat Clear Calc Estimated GFR POC Glucose (60-115) mg/dL Random Glucose (60-115) mg/dL Calcium (8.4-10.2) mg/dL Troponin I High Sens (<3.5-17.0) ng/L Triglycerides (<150) mg/dL Cholesterol (<200) mg/dL LDL Cholesterol, Calc (<100) mg/dL HDL Cholesterol (>40) mg/dL Urine Color Yellow Urine Appearance Cloudy Urine pH 6.5 (5.0-9.0) Ur Specific [place] 1.010 (1.005-1.025) Urine Protein 30 (1+) H (Neg-Trace) mg/dL Urine Glucose (UA) 100 H (Negative) mg/dL Urine Ketones Negative (Negative) mg/dL Urine Blood Small (1+) H (Negative) Urine Nitrite Negative (Negative) Ur Leukocyte Esterase Large (3+) H (Negative) Urine RBC 0-2 (0-2) /HPF Urine WBC >50 H (0-5) /HPF Ur Squamous Epith Cells 3-5 (0-2) /HPF Urine Bacteria 2+ (None Seen) Hyaline Casts 0-2 (0-2) /LPF Influenza Type A (PCR) (Negative) Influenza Type B (PCR) (Negative) RSV RNA Qual (PCR) (Negative) SARS-CoV-2 RNA (RT-PCR) (Negative) Independent Interpretation I performed an independent interpretation of an: EKG (My interpretation of patient's EKG showed a sinus rhythm heart rate is 80 IA QRS QTC normal there is no acute ST segment elevation noted.) and CT Scan (My interpretation patient's CT scan of the head was grossly negative for any acute evidence of bleeding.) Radiology Impression Discussion of test interpretation with radiology: I have reviewed the radiologist's reading. NIH Stroke Scale Time: 13:26 Level of Consciousness: Alert Level of Consciousness Questions: Answers both questions correctly Level of Consciousness Commands: Performs both tasks correctly Best Gaze: Normal Visual: No visual loss Facial Palsy: Minor paralyis Motor Arm (Right): No drift Motor Arm (Left): Drift Motor Leg (Right): No drift Motor Leg (Left): Drift Limb Ataxia: Absent Sensory: Normal Best Language: No aphasia Dysarthia: Normal Extinction and Inattention: No abnormality Score: 3 Critical Care Time Critical Care Time Critical Care Time: Yes Total Critical Care Time: 40 Attestation: I have personally provided 40 minutes of critical care time exclusive of time spent on separately billable procedures. ?Time includes review of lab data, radiology results, discussion with consultants, and monitoring for potential decompensation. ?Interventions were performed as documented above Discharge Plan Discharge Clinical Impression: Urinary tract infection Patient Disposition: Admitted As Inpatient Prescriptions: No Action metoprolol succinate 25 mg tablet extended release 24 hr 25 mg PO BID cholecalciferol (vitamin D3) 50 mcg (2,000 unit) capsule 50 mcg PO DAILY 30 Days Qty: 30 7RF (DME) walker with seat and breaks See Rx Instructions .Route .MEDSUPPLY Qty: 1 0RF Rx Instructions: As directed (DME) raised toilet seat with arms See Rx Instructions .Route .MEDSUPPLY Qty: 1 0RF Rx Instructions: As directed (DME) Shower chair with arms See Rx Instructions .Route .MEDSUPPLY Qty: 1 0RF Rx Instructions: As directed furosemide 20 mg tablet 20 mg PO DAILY (DME) Bedside commode See Rx Instructions .Route .MEDSUPPLY Qty: 1 0RF Rx Instructions: As directed (DME) FreeStyle Lite Strips Strip See Rx Instructions .ROUTE .MEDSUPPLY Qty: 100 11RF Rx Instructions: As directed three times a day lansoprazole 30 mg capsule,delayed release(DR/EC) 30 mg PO DAILY Qty: 30 4RF (DME) pen needle, diabetic [BD Denisa 2nd Gen Pen Needle] 32 gauge x 5/32 needle See Rx Instructions .ROUTE .COMPLEX Qty: 200 7RF Dose Instruction: USE DIRECTED FOUR TIMES DAILY Rx Instructions: USE DIRECTED FOUR TIMES DAILY atorvastatin 40 mg tablet 40 mg PO DAILY Qty: 90 0RF levothyroxine 88 mcg tablet 88 mcg PO DAILY Qty: 30 4RF clopidogrel 75 mg tablet 75 mg PO DAILY Qty: 90 1RF cyanocobalamin (vitamin B-12) [Vitamin B-12] 1,000 mcg Tablet 1,000 mcg PO DAILY Qty: 90 3RF acetaminophen 325 mg Tablet 650 mg PO Q6H PRN (Reason: Pain) (DME) lancets 28 gauge misc See Rx Instructions topical QID Qty: 100 Rx Instructions: As directed (DME) blood-glucose meter [FreeStyle Lite Meter] Kit See Rx Instructions .ROUTE .MEDSUPPLY Qty: 1 0RF Rx Instructions: As directed 4x/day ascorbate calcium (vitamin C) 500 mg tablet 500 mg PO DAILY 90 Days Qty: 90 1RF (DME) FreeStyle Angela 2 Sensor Kit See Rx Instructions .ROUTE .MEDSUPPLY Qty: 2 11RF Rx Instructions: Once every 14 days insulin glargine [Basaglar KwikPen U-100 Insulin] 100 unit/mL (3 mL) insulin pen 32 unit subcut QPM 90 Days Qty: 30 3RF insulin lispro [Admelog SoloStar U-100 Insulin] 100 unit/mL insulin pen See Rx Instructions subcut USEASDIRECTD MDD 48 units 90 Days Qty: 45 3RF Rx Instructions: tid with meals 100-150 12 units 151-250 14 units over 250 16 units subcutaneously use as directed; Print Language: Stateless
[2024-08-02 10:32] LABS: Glucose, Whole Blood 150 mg/dL (60-115)
[2024-08-02 11:50] LABS: MANUAL DIFF FLAG NO
[2024-08-02 11:53] LABS: Basophils Percent Auto 0.5 % (0-2); Eosinophils Absolute Auto 0.1 X10*3/uL (0.0-0.4); Eosinophils Percent Auto 1.8 % (0-4); Hematocrit 28.8 % (37.0-47.0); Hemoglobin 9.7 g/dl (12.0-16.0); Imm Gran Abs Auto 0.02 X10*3/uL (0.00-0.03); Imm Gran Pct Auto 0.4 % (0.0-0.4); Lymphocytes Percent Auto 17.5 % (20-40); Mean Corpuscular HGB Conc 33.7 g/dl (31.0-35.0); Mean Corpuscular Hemoglobin 31.5 pg (27.0-33.0); Mean Corpuscular Volume 93.5 fL (80.0-98.0); Mean Platelet Volume 9.4 fL (9.4-12.3); Monocytes Absolute Auto 0.5 X10*3/uL (0.1-1.2); Monocytes Percent Auto 7.9 % (2-11); Neutrophils Absolute Auto 4.1 x10*3/uL (2.0-8.3); Neutrophils Percent Auto 71.9 % (45-73); Platelet Count 326 X10*3/uL (160-400); Red Blood Count 3.08 X10*6/uL (4.20-5.50); Red Cell Distribution Width 13.1 % (11.0-16.0); White Blood Count 5.7 X10*3/uL (4.8-10.8)
[2024-08-02 11:58] LABS: Prothrombin Time 11.5 SEC (10.9-12.4)
[2024-08-02 12:01] LABS: Partial Thromboplastin Time 28.2 SEC (26.0-36.8)
[2024-08-02 12:02] LABS: Stroke Lab Use COMPLETE
[2024-08-02 12:08] LABS: Anion Gap 13 (12-20); Blood Urea Nitrogen 44 mg/dL (9-16); Calcium 9.3 mg/dL (8.4-10.2); Carbon Dioxide 16 mmol/L (22-29); Chloride 113 mmol/L (96-108); Cholesterol 116 mg/dL (<200); Creatinine Clr Calc Pharmacy 19.6; Estimated Glomerular Filt Rate 25; Glucose Random 165 mg/dL (60-115); HDL Cholesterol 49 mg/dL (>40); LDL Cholesterol Calculated 51 mg/dL (<100); Potassium 4.9 mmol/L (3.3-5.1); Sodium 137 mmol/L (135-145); Triglycerides 80 mg/dL (<150)
[2024-08-02 12:32] LABS: Influenza A PCR NEGATIVE (Negative); Influenza B PCR NEGATIVE (Negative); Resp Syncy Virus RNA Qual PCR NEGATIVE (Negative); SARS COV2 PCR INHOUSE NEGATIVE (Negative)
--- OUTSIDE RECORDS SUMMARY | 2024-08-02 12:47 | XMS_ITS | Clinical Summary ---
Author Organization [address] [facility] Address [address] [place] [address] Phone Care Team Providers Care Sanitation Truck Driver Name Role Phone Kimi Patino MD Primary Care Provider [phone] Allergies Active Allergy Reactions Criticality Noted Date Comments Aspirin Hives,Other 2020 Ciprofloxacin Nausea And Vomiting 02/19/2022 Fish Containing Products 01/21/2022 Penicillins Hives,Other 2020 Sulfamethoxazole Nausea And Vomiting 05/04/2023 Trimethoprim Nausea And Vomiting 05/04/2023 Encounters Date Type Department Care Team Description 06/28/2024 11:00 AM EDT Office Visit Orthopedic Surgery [facility] [address] [id number] Ravindra Gan, SILVIA Acquired hammer [...] AM EDT Office Visit Orthopedic Surgery - [place] [address] [phone] Ravindra Gan, DPM [address] [address] Health Maintenance Due Date Last Done Comments [...] Insurance MEDICAID - [place] MEDICARE Care Teams Sanitation Truck Driver Relationship Specialty Start Date End Date Kimi Patino MD [address] [place] [address] PCP - General 06/06/15
[2024-08-02 12:54] LABS: Appearance Urine Cloudy; Color Urine Yellow; Glucose Urine UA 100 mg/dL (Negative); Leukocyte Esterase Urine Large (3+) (Negative); Nitrite Urine Negative (Negative); PH 6.5 (5.0-9.0); UMIC TRIGGER UACC YES; Urine Blood Small (1+) (Negative); Urine Ketones Negative (Negative); Urine Protein 30 (1+) mg/dL (Neg-Trace)
[2024-08-02 13:11] LABS: Bacteria Urine 2+ (None Seen); Hyaline Casts Urine 0-2 /LPF (0-2); RBC Urine 0-2 /HPF (0-2); UACC Culture Trigger YES; WBC Urine >50 /HPF (0-5)
[2024-08-02] MEDS: levoFLOXacin/D5W 500 MG/100 ML PIGGYBACK 100 MG IV (13:42)
[2024-08-02] MEDS: diphenhydrAMINE HCL 50 MG/ML VIAL 25 MG IVPUSH (14:01)
[2024-08-02 15:17] VITALS: BP 138/49; PULSE 84; RESP 17; TEMP 36.6; O2SAT 100
--- NOTE | 2024-08-02 15:21 | PHA.MEDREC ---
Addendum entered by Guille Orlando [facility] 08/02/24 15:33: med rec checked by [facility] Original Note: Pharmacy Consult ? Medication Reconciliation Pharmacy has completed the medication reconciliation. Spoke to patient through physical education instructor service ( Randell) to confirm med list. Patient is a poor historian. she instructed me to call her daughter. Called and spoke to patient daughter Kristy [phone] and she was able to confirm all of patient medications. Daughter states patient takes Furosemide 20 mg, however patient last filled Oct 2022 and Metoprolol succ 25 mg, however last fill date Mar 2023 per [facility] pharmacy. Daughter confirmed Admelog SoloStar is per sliding scale and Basaglar kwik pen 32 units at bedtime.
[2024-08-02 18:39] VITALS: BP 148/65; PULSE 90; RESP 15; TEMP 36.7; O2SAT 99
--- NOTE | 2024-08-02 22:18 | PM.IMHP ---
History of Present Illness Date of Service: 08/02/24 Attending physician on admission: Amari Mary Chief Complaint: L weakness Patient is a 74-year-old Syrian-speaking female with a past medical history significant for type 2 diabetes on insulin, hypertension, CKD 3, history CVA in 2005, hypothyroid, hyperlipidemia, anemia, who presented to the ED due to left-sided weakness over the past 1-2 weeks, worsening this morning around 08:00 was 1st noticed. The patient's daughter reports that she has been ambulating with a limp not bending the left leg. She uses a walker to ambulate. There is also a questionable left-sided facial droop. She denies any headache or visual changes. She does report left-sided hip pain. The patient is a poor historian and her daughter gives the majority of the history. She denies any urinary symptoms including frequency, urgency or dysuria. She is having some suprapubic pain. She denies any cough, shortness of breath, chest pain, fever, chills, nausea or vomiting. Review of Systems Constitutional: Constitutional: Denies body ache(s), Denies chills, Denies fatigue, Denies fever(s) and Denies headache(s) Eyes: Eyes: Denies change in vision and Denies photophobia ENT: Denies headache(s), Denies nasal congestion, Denies nasal discharge and Denies sore throat Cardiovascular: Cardiovascular: Denies chest pain, Denies rapid heart rate, Denies leg edema, Denies lightheadedness and Denies dyspnea Respiratory: Respiratory: Denies cough, Denies dyspnea and Denies wheezing Gastrointestinal: Gastrointestinal: Denies abdominal pain, Denies diarrhea, Denies nausea and Denies vomiting Genitourinary: Genitourinary: Denies difficulty voiding, Denies dysuria and Denies urinary urgency Musculoskeletal: Comments: L hip pain/LE weakness Integumentary/Breasts: Skin/Breast: Denies rash Neurologic: Denies confusion and Denies headache(s) Psychiatric: Psychiatric: Denies confusion Endocrine: Endocrine: Denies fatigue Hematologic/Lymphatic: Hematologic/Lymphatic: Denies easy bleeding and Denies easy bruising Allergic/Immunologic: Allergic/Immunologic: Denies wheezing [facility] Medical History Colonoscopy refused Abnormal SPEP Personal history of malignant neoplasm of uterus Subcutaneous mass T2DM (type 2 diabetes mellitus) Urinary retention with incomplete bladder emptying Osteoporosis Elevated liver enzymes Hypoglycemia Hyperparathyroidism Serum calcium elevated CKD stage 3 due to type 2 diabetes mellitus custodial (current) 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 Bacteremia Vitamin D deficiency Diabetes type 2, uncontrolled History of non anemic vitamin B12 deficiency Iron deficiency anemia Renal tubular acidosis History of uterine fibroid CVA (cerebral vascular accident) Hypothyroidism HTN (hypertension) Hyperlipemia Diabetic neuropathy Diabetes Yeast infection involving the vagina and surrounding area Functional capacity: uses cane/walker Family History Maternal Grandmother No problems noted. Mother Pancreatic cancer Surgical History History of endoscopy History of colonoscopy History of cataract surgery H/O carotid endarterectomy History of hysterectomy Social History Household Members: Family Housing: Apartment Do you presently have visiting nurse or other home services: No Alcohol intake: current Alcohol intake frequency: holidays/special occasions only Patient Tobacco Use Status: Never used Tobacco e-Cigarette/Vaping Use: Never Used Second Hand Smoke Exposure: No Advance Directives: Yes Advance Directives on File: Yes Advance Directives Date on File: 02/04/20 Do you have a plan to hurt others: No Plan service: No Current occupational status: unemployed Cognitive needs: No Hearing needs: No Vision needs: Yes Meds Allergies Allergy/AdvReac Type Severity Reaction Status Date / Time aspirin [ASPIRIN] Allergy Severe Swelling, Verified 08/02/24 10:24 rash fish derived [FISH] Allergy Mild Rash, Verified 08/02/24 10:24 Swelling Penicillins [PENICILLINS] Allergy Unknown Swelling Verified 08/02/24 10:24 Active Medications: Current Medications Acetaminophen (Acetaminophen 325 Mg Tablet) 975 mg PO Q6H PRN PRN Reason: Pain, Mild 1-3,fever,headache Calcium Carbonate (Calcium Carbonate 750 Mg Tab.Chew) 750 mg PO Q4H PRN PRN Reason: Heartburn Heparin Sodium (Porcine) (Heparin Sodium,Porcine 5,000 Unit/Ml Vial) 5,000 unit SUBCUT Q8H MICHAEL Hydromorphone HCl (Hydromorphone Hcl 0.5 Mg/0.5 Ml Syringe) 0.25 mg IVPUSH Q4H PRN; Protocol PRN Reason: Pain, Severe (Pain Scale 7-10) Melatonin (Melatonin 3 Mg Tablet) 6 mg PO BEDTIME PRN PRN Reason: Insomnia Ondansetron HCl (Ondansetron Hcl 4 Mg/2 Ml Vial) 4 mg IVPUSH Q8H PRN PRN Reason: Nausea and Vomiting Oxycodone HCl (Oxycodone Hcl Immed Release 5 Mg Tablet) 5 mg PO Q6H PRN PRN Reason: Pain, Moderate(Pain Scale 4-6) Sodium Chloride (0.9 % Sodium Chloride Flush 3 Ml Syringe) 3 ml IVFLUSH [facility] Home Medications ?Medication ?Instructions ?Recorded ?Confirmed ?Last Taken ?Type metoprolol succinate 25 mg 25 mg PO BID 01/13/20 08/02/24 08/02/24 History tablet,extended release 24 hr lancets 28 gauge #100 ea 04/25/20 07/14/24 Unknown History furosemide 20 mg tablet 20 mg PO DAILY 07/20/20 08/02/24 08/02/24 History acetaminophen 325 mg tablet 650 mg PO Q6H PRN Pain 01/16/22 08/02/24 Unknown History atorvastatin 40 mg tablet 40 mg PO BEDTIME 08/02/24 08/02/24 08/01/24 History insulin glargine 100 unit/mL (3 32 unit subcut BEDTIME 08/02/24 08/02/24 08/01/24 History mL) subcutaneous pen (Basaglar KwikPen U-100 Insulin) insulin lispro 100 unit/mL See Rx Instructions subcut 08/02/24 08/02/24 08/02/24 History subcutaneous pen (Admelog SoloStcarlos USEASDIRECTD U-100 Insulin lispro) levothyroxine 88 mcg tablet 88 mcg PO DAILY@0600 08/02/24 08/02/24 08/02/24 History Physical Exam Vital Signs and Narrative: Vital Signs: Last Vital Signs Temp 98.1 F 08/02/24 18:39 Pulse 90 08/02/24 18:39 Resp 15 08/02/24 18:39 BP 148/65 H 08/02/24 18:39 Pulse Ox 99 08/02/24 18:39 O2 Del Method Room Air 08/02/24 18:39 BMI result Body Mass Index 26.6 General: AOx3, no acute distress, tearful, does not want to stay. Daughter gives history, patient is Syrian-speaking but does not conversate Resp: CTA bilaterally, no wheezing or crackles CVS: S1, S2, RRR GI: +BS, NT, no distention Skin: Warm, dry Neuro: Cranial nerves II-XII grossly intact bilaterally. Motor grossly intact bilaterally. Difficult to determine weakness as patient is noncompliant. Pain with resistance with left lower extremity. No upper extremity weakness. Extremities: No LE edema Psych: Appropriate affect Const: General: No confusion Orientation/consciousness: No confusion Eyes: Direct Ophthalmoscopy: No photophobia Neuro: General: No confusion Results Labs 08/02/24 11:43 08/02/24 11:43 Labs: Laboratory Results - last 24 hr 08/02/24 08/02/24 08/02/24 10:21 10:24 11:43 MCV 93.5 MCH 31.5 MCHC 33.7 RDW 13.1 Plt Count 326 D MPV 9.4 Immature Gran % (Auto) 0.4 Neut % (Auto) 71.9 Lymph % (Auto) 17.5 L [place] % (Auto) 7.9 Eos % (Auto) 1.8 Baso % (Auto) 0.5 Lymph # (Auto) 1.0 L [place] # (Auto) 0.5 Eos # (Auto) 0.1 Baso # (Auto) 0.0 Abs Immat Gran (auto) 0.02 Absolute Neuts (auto) 4.1 Absolute Nucleated RBC 0.000 Nucleated RBC % (auto) 0.0 PT 11.5 Whole Blood PT 12.2 INR 1.0 Whole Blood INR 1.0 APTT 28.2 Anion Gap 13 Estim Creat Clear Calc 19.6 Estimated GFR 25 POC Glucose 150 H Random Glucose 165 H Calcium 9.3 Troponin I High Sens 3.0 Triglycerides 80 Cholesterol 116 LDL Cholesterol, Calc 51 HDL Cholesterol 49 Urine Color Urine Appearance Urine pH Ur Specific [place] Urine Protein Urine Glucose (UA) Urine Ketones Urine Blood Urine Nitrite Ur Leukocyte Esterase Urine RBC Urine WBC Ur Squamous Epith Cells Urine Bacteria Hyaline Casts Influenza Type A (PCR) NEGATIVE Influenza Type B (PCR) NEGATIVE RSV RNA Qual (PCR) NEGATIVE SARS-CoV-2 RNA (RT-PCR) NEGATIVE 08/02/24 12:34 MCV MCH MCHC RDW Plt Count MPV Immature Gran % (Auto) Neut % (Auto) Lymph % (Auto) [place] % (Auto) Eos % (Auto) Baso % (Auto) Lymph # (Auto) [place] # (Auto) Eos # (Auto) Baso # (Auto) Abs Immat Gran (auto) Absolute Neuts (auto) Absolute Nucleated RBC Nucleated RBC % (auto) PT Whole Blood PT INR Whole Blood INR APTT Anion Gap Estim Creat Clear Calc Estimated GFR POC Glucose Random Glucose Calcium Troponin I High Sens Triglycerides Cholesterol LDL Cholesterol, Calc HDL Cholesterol Urine Color Yellow Urine Appearance Cloudy Urine pH 6.5 Ur Specific [place] 1.010 Urine Protein 30 (1+) H Urine Glucose (UA) 100 H Urine Ketones Negative Urine Blood Small (1+) H Urine Nitrite Negative Ur Leukocyte Esterase Large (3+) H Urine RBC 0-2 Urine WBC >50 H Ur Squamous Epith Cells 3-5 Urine Bacteria 2+ Hyaline Casts 0-2 Influenza Type A (PCR) Influenza Type B (PCR) RSV RNA Qual (PCR) SARS-CoV-2 RNA (RT-PCR) Imaging Radiologist's Impressions: Impressions Head CT 08/02/24 10:29 IMPRESSION: 1. No acute intracranial abnormality. 2. Old right posterior MCA [place] watershed infarction as discussed. This critical result was discussed with Dr. Joellen Yoder via phone call at 10:45 AM on 08/02/2024. It was ascertained that the content and urgency of the report was understood at the time of direct communication. Electronically signed by: Jossue Morocho MD 08/02/2024 10:51 AM EDT Assessment and Plan (1) Weakness: Status: Acute (2) Pyelonephritis: Status: Acute (3) Urinary tract infection: Status: Acute (4) Hyperchloremic metabolic acidosis: Status: Acute (5) CKD (chronic kidney disease) stage 3, GFR 30-59 ml/min: Status: Chronic Plan Patient is a 74-year-old Syrian-speaking female with a past medical history significant for type 2 diabetes on insulin, hypertension, CKD 3, history CVA in 2006, hypothyroid, hyperlipidemia, anemia, who presented to the ED due to left-sided weakness over the past 1-2 weeks, worsening this morning around 08:00 was 1st noticed. Weakness likely secondary to clinical pyelonephritis/UTI vs acute CVA - head CT negative - CTA not done due to renal function, MRI to be done tomorrow morning - UA positive, + CVA tenderness on exam - started on Levaquin in ED, switch to ceftriaxone - WBC normal, vital signs stable, no sepsis - EKG normal sinus rhythm - COVID/flu/RSV negative - no focal neurological deficits - monitor on tele - MRI head/brain in a.m. - neurology consult - echo - PT/OT consult - lipid panel normal - NPO pending bedside swallow eval - patient already on statin and Plavix Hyperchloremic metabolic acidosis -- secondary to UTI - treat UTI as above - monitor BMP CKD 3 - creatinine at baseline - avoid nephrotoxins - monitor BMP Type 2 diabetes - sliding scale insulin - diabetic diet when normal diet resumed - Lantus, reduced dose, 22 units daily Hypertension - resume home BP meds tomorrow, metoprolol and Lasix Hypothyroid - continue levothyroxine Hyperlipidemia - continue statin Chronic normocytic anemia - hemoglobin around baseline, 9.7 - no need for blood transfusion at this time - monitor CBC Full code VTE prophylaxis: Heparin Patient with acute weakness secondary to pyelonephritis/UTI, CVA can not be ruled out, requires admission for at least 2 midnight stay for further neurological assessment as well as IV antibiotics and monitoring. Quality Stroke Does the patient have a stroke diagnosis?: No VTE Prior VTE?: No VTE Risk Level:: Medical - moderate - high VTE Device Contraindication: Treatment Not Indicated VTE Drug Contraindication: N/A - Med Ordered
[2024-08-02 23:47] VITALS: BP 116/54; PULSE 95; RESP 16; TEMP 36.8; O2SAT 99
[2024-08-02] MEDS: Heparin Sodium,Porcine 5,000 UNIT/ML VIAL 5000 UNIT SUBCUT (23:50)
[2024-08-02] MEDS: Atorvastatin Calcium 40 MG TABLET PO (23:50)
[2024-08-03] VITALS (8 sets, daily range): BP systolic 105–147; BP diastolic 39–70; PULSE 80–94; RESP 16–19; TEMP 36.1–36.9; O2SAT 98–100; BMI 26.0
[2024-08-03] MEDS: cefTRIAXone sodium 1 GM VIAL IVPUSH (01:32)
[2024-08-03 01:50] LABS: Lactic Acid 0.9 mmol/L (0.5-2.0)
[2024-08-03 05:00] LABS: MANUAL DIFF FLAG NO
[2024-08-03 05:04] LABS: Basophils Percent Auto 0.5 % (0-2); Eosinophils Absolute Auto 0.1 X10*3/uL (0.0-0.4); Eosinophils Percent Auto 1.1 % (0-4); Hematocrit 31.5 % (37.0-47.0); Hemoglobin 10.5 g/dl (12.0-16.0); Imm Gran Abs Auto 0.02 X10*3/uL (0.00-0.03); Imm Gran Pct Auto 0.3 % (0.0-0.4); Lymphocytes Absolute Auto 1.1 X10*3/uL (1.2-4.9); Lymphocytes Percent Auto 17.3 % (20-40); Mean Corpuscular HGB Conc 33.3 g/dl (31.0-35.0); Mean Corpuscular Hemoglobin 31.1 pg (27.0-33.0); Mean Corpuscular Volume 93.2 fL (80.0-98.0); Mean Platelet Volume 9.3 fL (9.4-12.3); Monocytes Absolute Auto 0.7 X10*3/uL (0.1-1.2); Monocytes Percent Auto 10.7 % (2-11); Neutrophils Absolute Auto 4.6 x10*3/uL (2.0-8.3); Neutrophils Percent Auto 70.1 % (45-73); Platelet Count 352 X10*3/uL (160-400); Red Blood Count 3.38 X10*6/uL (4.20-5.50); Red Cell Distribution Width 12.9 % (11.0-16.0); White Blood Count 6.5 X10*3/uL (4.8-10.8)
[2024-08-03 05:18] LABS: Anion Gap 14 (12-20); Blood Urea Nitrogen 45 mg/dL (9-16); Calcium 9.6 mg/dL (8.4-10.2); Carbon Dioxide 15 mmol/L (22-29); Chloride 115 mmol/L (96-108); Creatinine Clr Calc Pharmacy 19.7; Estimated Glomerular Filt Rate 25; Glucose Random 124 mg/dL (60-115); Potassium 4.9 mmol/L (3.3-5.1); Sodium 139 mmol/L (135-145)
[2024-08-03] MEDS: Heparin Sodium,Porcine 5,000 UNIT/ML VIAL 5000 UNIT SUBCUT ×2 (06:07→14:29)
[2024-08-03] MEDS: Levothyroxine Sodium 88 MCG TABLET PO (06:08)
[2024-08-03 06:20] LABS: Estimated Average Glucose 180 mg/dL; Hemoglobin A1C 167.1805 umol/L; Hemoglobin A1c % 7.9 % (<6.0); Total Hemoglobin (HGBA1C) 2637.7884 umol/L
[2024-08-03 07:37] LABS: Glucose, Whole Blood 105 mg/dL (60-115)
--- NOTE | 2024-08-03 07:37 | PC.NURSE ---
Addendum entered by Deb Rosario RN 08/03/24 07:40: Pt voided 120cc in bedpan, sheets changed and pt cleaned. Glucose 103, pt currently eating breakfast. Plan of care ongoing. Original Note: MRI form completed with dispatcher relay and faxed.
--- NOTE | 2024-08-03 07:38 | P.DS_ITS ---
DS: Providers Provider Date of Service: 08/03/24 Date of admission: 08/02/24 22:10 Date of discharge: 08/03/24 Primary care physician: Kimi Patino MD Consults: 08/02/24 22:14 Consult to Neurology Routine Consulting Provider: [facility] Reason for consultation: L weakness, r/o CVA Has provider been notified: Yes DS: Diagnosis Discharge Diagnosis (1) Weakness: Status: Acute (2) Pyelonephritis: Status: Acute (3) Urinary tract infection: Status: Acute (4) Hyperchloremic metabolic acidosis: Status: Acute (5) CKD (chronic kidney disease) stage 3, GFR 30-59 ml/min: Status: Chronic DS: Summary Hospital Course Hospital Course: Chief Complaint: L weakness Patient is a 74-year-old Macanese-speaking female with a past medical history significant for type 2 diabetes on insulin, hypertension, CKD 3, history CVA in 2005, hypothyroid, hyperlipidemia, anemia, who presented to the ED due to left- sided weakness over the past 1-2 weeks, worsening this morning around 08:00 was 1st noticed. The patient's daughter reports that she has been ambulating with a limp not bending the left leg. She uses a walker to ambulate. There is also a questionable left-sided facial droop. She denies any headache or visual changes. She does report left-sided hip pain. The patient is a poor historian and her daughter gives the majority of the history. She denies any urinary symptoms including frequency, urgency or dysuria. She is having some suprapubic pain. She denies any cough, shortness of breath, chest pain, fever, chills, nausea or vomiting. hospital cours: Patient presented with weakness that has been ongoing for 2 weeks, she has history of prior stroke. CT showed no acute storoke, MRI....PT/OT Time Attestation Discharge Coordination Time (in mins): 40 Quality: Safe Use of Opioids Does Pt have an Active Cancer Diagnosis on the Problem List?: No Quality: Stroke Does the patient have a stroke diagnosis?: No Physical Exam Vital Signs: Vital Signs: Last Vital Signs Temp 98.0 F 08/03/24 07:08 Pulse 85 08/03/24 07:08 Resp 19 08/03/24 07:08 BP 120/40 L 08/03/24 07:08 Pulse Ox 100 08/03/24 07:08 O2 Del Method Room Air 08/03/24 07:08 BMI result Body Mass Index 26.6 DS: Data Data Completed and Pending Labs on day of discharge: Laboratory Results - last 24 hr 08/02/24 08/02/24 08/02/24 10:21 10:24 11:43 WBC 5.7 RBC 3.08 L Hgb 9.7 L Hct 28.8 L MCV 93.5 MCH 31.5 MCHC 33.7 RDW 13.1 Plt Count 326 D MPV 9.4 Immature Gran % (Auto) 0.4 Neut % (Auto) 71.9 Lymph % (Auto) 17.5 L [place] % (Auto) 7.9 Eos % (Auto) 1.8 Baso % (Auto) 0.5 Lymph # (Auto) 1.0 L [place] # (Auto) 0.5 Eos # (Auto) 0.1 Baso # (Auto) 0.0 Abs Immat Gran (auto) 0.02 Absolute Neuts (auto) 4.1 Absolute Nucleated RBC 0.000 Nucleated RBC % (auto) 0.0 PT 11.5 Whole Blood PT 12.2 INR 1.0 Whole Blood INR 1.0 APTT 28.2 Sodium 137 Potassium 4.9 Chloride 113 H Carbon Dioxide 16 L Anion Gap 13 BUN 44 H Creatinine 1.95 H Estim Creat Clear Calc 19.6 Estimated GFR 25 POC Glucose 150 H Random Glucose 165 H Estimat Average Glucose 180 Hemoglobin A1c % 7.9 H Lactic Acid Calcium 9.3 Troponin I High Sens 3.0 Triglycerides 80 Cholesterol 116 LDL Cholesterol, Calc 51 HDL Cholesterol 49 Urine Color Urine Appearance Urine pH Ur Specific [place] Urine Protein Urine Glucose (UA) Urine Ketones Urine Blood Urine Nitrite Ur Leukocyte Esterase Urine RBC Urine WBC Ur Squamous Epith Cells Urine Bacteria Hyaline Casts Influenza Type A (PCR) NEGATIVE Influenza Type B (PCR) NEGATIVE RSV RNA Qual (PCR) NEGATIVE SARS-CoV-2 RNA (RT-PCR) NEGATIVE 08/02/24 08/03/24 08/03/24 12:34 01:30 04:51 WBC 6.5 RBC 3.38 L Hgb 10.5 L Hct 31.5 L MCV 93.2 MCH 31.1 MCHC 33.3 RDW 12.9 Plt Count 352 MPV 9.3 L Immature Gran % (Auto) 0.3 Neut % (Auto) 70.1 Lymph % (Auto) 17.3 L [place] % (Auto) 10.7 Eos % (Auto) 1.1 Baso % (Auto) 0.5 Lymph # (Auto) 1.1 L [place] # (Auto) 0.7 Eos # (Auto) 0.1 Baso # (Auto) 0.0 Abs Immat Gran (auto) 0.02 Absolute Neuts (auto) 4.6 Absolute Nucleated RBC 0.000 Nucleated RBC % (auto) 0.0 PT Whole Blood PT INR Whole Blood INR APTT Sodium 139 Potassium 4.9 Chloride 115 H Carbon Dioxide 15 L Anion Gap 14 BUN 45 H Creatinine 1.94 H Estim Creat Clear Calc 19.7 Estimated GFR 25 POC Glucose Random Glucose 124 H Estimat Average Glucose Hemoglobin A1c % Lactic Acid 0.9 Calcium 9.6 Troponin I High Sens Triglycerides Cholesterol LDL Cholesterol, Calc HDL Cholesterol Urine Color Yellow Urine Appearance Cloudy Urine pH 6.5 Ur Specific [place] 1.010 Urine Protein 30 (1+) H Urine Glucose (UA) 100 H Urine Ketones Negative Urine Blood Small (1+) H Urine Nitrite Negative Ur Leukocyte Esterase Large (3+) H Urine RBC 0-2 Urine WBC >50 H Ur Squamous Epith Cells 3-5 Urine Bacteria 2+ Hyaline Casts 0-2 Influenza Type A (PCR) Influenza Type B (PCR) RSV RNA Qual (PCR) SARS-CoV-2 RNA (RT-PCR) 08/03/24 07:33 WBC RBC Hgb Hct MCV MCH MCHC RDW Plt Count MPV Immature Gran % (Auto) Neut % (Auto) Lymph % (Auto) [place] % (Auto) Eos % (Auto) Baso % (Auto) Lymph # (Auto) [place] # (Auto) Eos # (Auto) Baso # (Auto) Abs Immat Gran (auto) Absolute Neuts (auto) Absolute Nucleated RBC Nucleated RBC % (auto) PT Whole Blood PT INR Whole Blood INR APTT Sodium Potassium Chloride Carbon Dioxide Anion Gap BUN Creatinine Estim Creat Clear Calc Estimated GFR POC Glucose 105 Random Glucose Estimat Average Glucose Hemoglobin A1c % Lactic Acid Calcium Troponin I High Sens Triglycerides Cholesterol LDL Cholesterol, Calc HDL Cholesterol Urine Color Urine Appearance Urine pH Ur Specific [place] Urine Protein Urine Glucose (UA) Urine Ketones Urine Blood Urine Nitrite Ur Leukocyte Esterase Urine RBC Urine WBC Ur Squamous Epith Cells Urine Bacteria Hyaline Casts Influenza Type A (PCR) Influenza Type B (PCR) RSV RNA Qual (PCR) SARS-CoV-2 RNA (RT-PCR) Discharge Plan Discharge Anticipated Discharge Date/Time: 08/03/24 14:11 Patient Disposition: Home Health Service Discharge Diagnosis: Weakness, UTI Referrals: [facility] [Outside] - 1 Day Kimi Patino MD [Primary Care Provider] - 1 Week Discharge Medications: New cefuroxime axetil 250 mg tablet 250 mg PO Q12H 9 Days Qty: 18 0RF sodium bicarbonate 650 mg Tablet 650 mg PO BID Qty: 60 0RF Continued metoprolol succinate 25 mg tablet extended release 24 hr 25 mg PO BID cholecalciferol (vitamin D3) 50 mcg (2,000 unit) capsule 50 mcg PO DAILY 30 Days Qty: 30 7RF (DME) walker with seat and breaks See Rx Instructions .Route .MEDSUPPLY Qty: 1 0RF Rx Instructions: As directed (DME) raised toilet seat with arms See Rx Instructions .Route .MEDSUPPLY Qty: 1 0RF Rx Instructions: As directed (DME) Shower chair with arms See Rx Instructions .Route .MEDSUPPLY Qty: 1 0RF Rx Instructions: As directed furosemide 20 mg tablet 20 mg PO DAILY (DME) Bedside commode See Rx Instructions .Route .MEDSUPPLY Qty: 1 0RF Rx Instructions: As directed (DME) FreeStyle Lite Strips Strip See Rx Instructions .ROUTE .MEDSUPPLY Qty: 100 11RF Rx Instructions: As directed three times a day (DME) pen needle, diabetic [BD Denisa 2nd Gen Pen Needle] 32 gauge x 5/32 needle See Rx Instructions .ROUTE .COMPLEX Qty: 200 7RF Dose Instruction: USE DIRECTED FOUR TIMES DAILY Rx Instructions: USE DIRECTED FOUR TIMES DAILY clopidogrel 75 mg tablet 75 mg PO DAILY Qty: 90 1RF cyanocobalamin (vitamin B-12) [Vitamin B-12] 1,000 mcg Tablet 1,000 mcg PO DAILY Qty: 90 3RF acetaminophen 325 mg Tablet 650 mg PO Q6H PRN (Reason: Pain) atorvastatin 40 mg tablet 40 mg PO BEDTIME levothyroxine 88 mcg tablet 88 mcg PO DAILY@0600 insulin glargine [Basaglar KwikPen U-100 Insulin] 100 unit/mL (3 mL) insulin pen 32 unit subcut BEDTIME insulin lispro [Admelog SoloStar U-100 Insulin] 100 unit/mL insulin pen See Rx Instructions subcut USEASDIRECTD MDD 48 units Rx Instructions: tid with meals 100-150 12 units 151-250 14 units over 250 16 units subcutaneously use as directed; (DME) lancets 28 gauge misc See Rx Instructions topical QID Qty: 100 Rx Instructions: As directed (DME) blood-glucose meter [FreeStyle Lite Meter] Kit See Rx Instructions .ROUTE .MEDSUPPLY Qty: 1 0RF Rx Instructions: As directed 4x/day ascorbate calcium (vitamin C) 500 mg tablet 500 mg PO DAILY 90 Days Qty: 90 1RF (DME) FreeStyle [place] 2 Sensor Kit See Rx Instructions .ROUTE .MEDSUPPLY Qty: 2 11RF Rx Instructions: Once every 14 days Discharge Orders: Discharge Order (Routine); Ordered 08/03/24 Ordered By: Zev Oleary Diet: Diabetic diet Activity on Discharge: As tolerated Stand Alone Forms: Patient Portal Discharge page Print Language: Macanese Care Plan Goals: recovery from weakness, uti Health Concerns: acute on chronic weakness uti metabolic acidosis Plan of Treatment: take cefuroxime for uti follow up with your doctor in a week follow up with kidney doctor, office will call you Assessment: see above Discharge Date/Time: 08/03/24 17:38
--- NOTE | 2024-08-03 07:44 | P.PNIM_ITS ---
Subjective Subjective Date of Service: 08/05/24 Interval History: f/u on weakness, uti no stroke on CT or MRI Physical Exam 2 Vital Signs: Vital Signs: Last Vital Signs Temp 98.0 F 08/03/24 07:08 Pulse 85 08/03/24 07:08 Resp 19 08/03/24 07:08 BP 120/40 L 08/03/24 07:08 Pulse Ox 100 08/03/24 07:08 O2 Del Method Room Air 08/03/24 07:08 BMI result Body Mass Index 26.6 Const: Other: General: Resp: CTA bilateral CVS: S1,S2,RRR GI: +BS, NT, no distention Skin: No rash Neuro: motor grossly intact Psych: appropriate affect Objective Data Active Medications Acetaminophen (Acetaminophen 325 Mg Tablet) 975 mg PO Q6H PRN PRN Reason: Pain, Mild 1-3,fever,headache Ascorbic Acid (Ascorbic Acid 500 Mg Tablet) 500 mg PO DAILY [facility] Atorvastatin Calcium (Atorvastatin Calcium 40 Mg Tablet) 40 mg PO BEDTIME [facility] Last Admin: 08/02/24 23:50 Dose: 40 mg Documented By: STONEY Calcium Carbonate (Calcium Carbonate 750 Mg Tab.Chew) 750 mg PO Q4H PRN PRN Reason: Heartburn Ceftriaxone Sodium (Ceftriaxone Sodium 1 Gm Vial) 1 gm IVPUSH BEDTIME [facility] Last Admin: 08/03/24 01:32 Dose: 1 gm Documented By: STONEY Comments: administered past time d/t blood cultures and lactic Clopidogrel Bisulfate (Clopidogrel Bisulfate 75 Mg Tablet) 75 mg PO DAILY [facility] Cyanocobalamin (Cyanocobalamin (Vitamin B-12) 1,000 Mcg Tablet) 1,000 mcg PO DAILY [facility] Dextrose (Dextrose 50 % 25 Gm/50 Ml Syringe) 25 gm IVPUSH Q15M PRN; Protocol PRN Reason: per Hypoglycemia Standing Ord. Furosemide (Furosemide 20 Mg Tablet) 20 mg PO DAILY [facility]EL; Protocol Glucose (Glucose Gel 15 Gm Gel..Gram.) 15 gm PO Q15M PRN; Protocol PRN Reason: per Hypoglycemia Standing Ord. Heparin Sodium (Porcine) (Heparin Sodium,Porcine 5,000 Unit/Ml Vial) 5,000 unit SUBCUT Q8H [facility] Last Admin: 08/03/24 06:07 Dose: 5,000 unit Documented By: STONEY Hydromorphone HCl (Hydromorphone Hcl 0.5 Mg/0.5 Ml Syringe) 0.25 mg IVPUSH Q4H PRN; Protocol PRN Reason: Pain, Severe (Pain Scale 7-10) Insulin Glargine (Insulin Glargine,Hum.Rec.Anlog 100 Unit/Ml 10 Ml Vial) 22 unit SUBCUT DAILY [facility] Insulin Human Lispro (Insulin Lispro 100 Unit/Ml 3 Ml Vial) 0 unit SUBCUT QIDACHS [facility]; Protocol Last Admin: 08/03/24 07:34 Dose: Not Given Documented By: TRES Non-Admin Reason: No Insulin Coverage Levothyroxine Sodium (Levothyroxine Sodium 88 Mcg Tablet) 88 mcg PO DAILY@0600 [facility] Last Admin: 08/03/24 06:08 Dose: 88 mcg Documented By: STONEY Melatonin (Melatonin 3 Mg Tablet) 6 mg PO BEDTIME PRN PRN Reason: Insomnia Metoprolol Succinate (Metoprolol Succinate Er 25 Mg Tab.Er.24h) 25 mg PO BID [facility]; Protocol Ondansetron HCl (Ondansetron Hcl 4 Mg/2 Ml Vial) 4 mg IVPUSH Q8H PRN PRN Reason: Nausea and Vomiting Oxycodone HCl (Oxycodone Hcl Immed Release 5 Mg Tablet) 5 mg PO Q6H PRN PRN Reason: Pain, Moderate(Pain Scale 4-6) Sodium Chloride (0.9 % Sodium Chloride Flush 3 Ml Syringe) 3 ml IVFLUSH QSHIFT [facility] Last Admin: 08/03/24 07:36 Dose: Not Given Documented By: LAWANDA Non-Admin Reason: See Note Vitamin D (Cholecalciferol (Vitamin D3) 25 Mcg Tablet) 50 mcg PO DAILY [facility] Labs 08/03/24 04:51 08/03/24 04:51 Labs: Laboratory Results - last 24 hr 08/02/24 08/02/24 08/02/24 10:21 10:24 11:43 MCV 93.5 MCH 31.5 MCHC 33.7 RDW 13.1 Plt Count 326 D MPV 9.4 Immature Gran % (Auto) 0.4 Neut % (Auto) 71.9 Lymph % (Auto) 17.5 L [place] % (Auto) 7.9 Eos % (Auto) 1.8 Baso % (Auto) 0.5 Lymph # (Auto) 1.0 L [place] # (Auto) 0.5 Eos # (Auto) 0.1 Baso # (Auto) 0.0 Abs Immat Gran (auto) 0.02 Absolute Neuts (auto) 4.1 Absolute Nucleated RBC 0.000 Nucleated RBC % (auto) 0.0 PT 11.5 Whole Blood PT 12.2 INR 1.0 Whole Blood INR 1.0 APTT 28.2 Anion Gap 13 Estim Creat Clear Calc 19.6 Estimated GFR 25 POC Glucose 150 H Random Glucose 165 H Estimat Average Glucose 180 Hemoglobin A1c % 7.9 H Lactic Acid Calcium 9.3 Troponin I High Sens 3.0 Triglycerides 80 Cholesterol 116 LDL Cholesterol, Calc 51 HDL Cholesterol 49 Urine Color Urine Appearance Urine pH Ur Specific [place] Urine Protein Urine Glucose (UA) Urine Ketones Urine Blood Urine Nitrite Ur Leukocyte Esterase Urine RBC Urine WBC Ur Squamous Epith Cells Urine Bacteria Hyaline Casts Influenza Type A (PCR) NEGATIVE Influenza Type B (PCR) NEGATIVE RSV RNA Qual (PCR) NEGATIVE SARS-CoV-2 RNA (RT-PCR) NEGATIVE 08/02/24 08/03/24 08/03/24 12:34 01:30 04:51 MCV 93.2 MCH 31.1 MCHC 33.3 RDW 12.9 Plt Count 352 MPV 9.3 L Immature Gran % (Auto) 0.3 Neut % (Auto) 70.1 Lymph % (Auto) 17.3 L [place] % (Auto) 10.7 Eos % (Auto) 1.1 Baso % (Auto) 0.5 Lymph # (Auto) 1.1 L [place] # (Auto) 0.7 Eos # (Auto) 0.1 Baso # (Auto) 0.0 Abs Immat Gran (auto) 0.02 Absolute Neuts (auto) 4.6 Absolute Nucleated RBC 0.000 Nucleated RBC % (auto) 0.0 PT Whole Blood PT INR Whole Blood INR APTT Anion Gap 14 Estim Creat Clear Calc 19.7 Estimated GFR 25 POC Glucose Random Glucose 124 H Estimat Average Glucose Hemoglobin A1c % Lactic Acid 0.9 Calcium 9.6 Troponin I High Sens Triglycerides Cholesterol LDL Cholesterol, Calc HDL Cholesterol Urine Color Yellow Urine Appearance Cloudy Urine pH 6.5 Ur Specific [place] 1.010 Urine Protein 30 (1+) H Urine Glucose (UA) 100 H Urine Ketones Negative Urine Blood Small (1+) H Urine Nitrite Negative Ur Leukocyte Esterase Large (3+) H Urine RBC 0-2 Urine WBC >50 H Ur Squamous Epith Cells 3-5 Urine Bacteria 2+ Hyaline Casts 0-2 Influenza Type A (PCR) Influenza Type B (PCR) RSV RNA Qual (PCR) SARS-CoV-2 RNA (RT-PCR) 08/03/24 07:33 MCV MCH MCHC RDW Plt Count MPV Immature Gran % (Auto) Neut % (Auto) Lymph % (Auto) [place] % (Auto) Eos % (Auto) Baso % (Auto) Lymph # (Auto) [place] # (Auto) Eos # (Auto) Baso # (Auto) Abs Immat Gran (auto) Absolute Neuts (auto) Absolute Nucleated RBC Nucleated RBC % (auto) PT Whole Blood PT INR Whole Blood INR APTT Anion Gap Estim Creat Clear Calc Estimated GFR POC Glucose 105 Random Glucose Estimat Average Glucose Hemoglobin A1c % Lactic Acid Calcium Troponin I High Sens Triglycerides Cholesterol LDL Cholesterol, Calc HDL Cholesterol Urine Color Urine Appearance Urine pH Ur Specific [place] Urine Protein Urine Glucose (UA) Urine Ketones Urine Blood Urine Nitrite Ur Leukocyte Esterase Urine RBC Urine WBC Ur Squamous Epith Cells Urine Bacteria Hyaline Casts Influenza Type A (PCR) Influenza Type B (PCR) RSV RNA Qual (PCR) SARS-CoV-2 RNA (RT-PCR) Assessment and Plan (1) Urinary tract infection: Status: Acute Plan 74-year-old Yi-speaking female with a past medical history significant for type 2 diabetes on insulin, hypertension, CKD 3, history CVA in 2005, hypothyroid, hyperlipidemia, anemia, who presented to the ED due to left-sided weakness over the past 1-2 weeks, now worse, CT no acute stroke, has UTI Weakness likely from UTI, no evidence of stoke MRI show old stroke, no acute stroke PT/OT Neurology consult UTI, no fever, no flank pain, No evidence of pyelonephritis Ceftriaxone, change to ceftin at dsichartge Chronic metabolic acidosis d/t CKD, with component of hyperchloremia LR and rehceck, nephrology recommends bicab replacement CKD 4 with chronic metabolic acidosis, ? need bicab replacment, will discuss with nephro Type 2 diabetes, A1C 7.9 Lantus at reduced dose SSI, diabetic diet Hypertension resume home meds Hypothyroid levothyroxine Hyperlipidemia continue statin Chronic normocytic anemia, Hgb at baseline, Full code VTE prophylaxis: Heparin Need for inpt: new weakness, ruling out CVA, symptomatic UTi Quality Stroke Does the patient have a stroke diagnosis?: No VTE Prior VTE?: No VTE Risk Level:: Medical - moderate - high VTE Device Contraindication: Treatment Not Indicated VTE Drug Contraindication: N/A - Med Ordered
[2024-08-03] MEDS: Ascorbic Acid 500 MG TABLET PO (10:29)
[2024-08-03] MEDS: Metoprolol Succinate ER 25 MG TAB.ER.24H PO (10:29)
[2024-08-03] MEDS: Clopidogrel Bisulfate 75 MG TABLET PO (10:30)
[2024-08-03] MEDS: Cholecalciferol (Vitamin D3) 25 MCG TABLET 50 MCG PO (10:30)
[2024-08-03] MEDS: Furosemide 20 MG TABLET PO (10:31)
[2024-08-03] MEDS: Cyanocobalamin (Vitamin B-12) 1,000 MCG TABLET 1000 MCG PO (10:32)
--- NOTE | 2024-08-03 10:49 | P.CNNE_ITS ---
History of Present Illness Data of Consult Service Date: 08/03/24 Primary Care Provider: Kimi Patino MD [facility] Reason for consult: weakness This is a 74-year-old Hungarian-speaking female with a H/O of type 2 diabetes on insulin, hypertension, CKD 3, history CVA in 2005, hypothyroid, hyperlipidemia, anemia, presented to the ED due to left-sided weakness over the past 1-2 weeks, worsening on the morning of admission around 08:00 was 1st noticed. The patient's daughter reports that she has been ambulating with a limp not bending the left leg. She uses a walker to ambulate. There is also a questionable left-sided facial droop. She denies any headache or visual changes. She does report left-sided hip pain. The patient is a poor historian and her daughter gives the majority of the history. She denies any urinary symptoms including frequency, urgency or dysuria. She is having some suprapubic pain. 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 Mother Pancreatic cancer Surgical History Surgical History History of endoscopy History of colonoscopy History of cataract surgery H/O carotid endarterectomy History of hysterectomy Social History Social History Household Members: Children Housing: House Do you presently have visiting nurse or other home services: No Alcohol intake: current Alcohol intake frequency: does not drink Patient Tobacco Use Status: Never used Tobacco Smoked in Last 30 Days: No e-Cigarette/Vaping Use: Never Used Second Hand Smoke Exposure: No Use of substances other than those prescribed or required for medical reasons: No Advance Directives: Yes Advance Directives on File: Yes Advance Directives Date on File: 02/04/20 Do you have a plan to hurt others: No Plan Recently lost weight without trying: No Patient : No Poor oral hygiene: No service: No Current occupational status: unemployed Cognitive needs: No Hearing needs: No Vision needs: Yes Meds Allergies Allergy/AdvReac Type Severity Reaction Status Date / Time aspirin [ASPIRIN] Allergy Severe Swelling, Verified 08/02/24 10:24 rash fish derived [FISH] Allergy Mild Rash, Verified 08/02/24 10:24 Swelling Penicillins [PENICILLINS] Allergy Unknown Swelling Verified 08/02/24 10:24 Active Medications: Current Medications Acetaminophen (Acetaminophen 325 Mg Tablet) 975 mg PO Q6H PRN PRN Reason: Pain, Mild 1-3,fever,headache Ascorbic Acid (Ascorbic Acid 500 Mg Tablet) 500 mg PO DAILY [facility] Last Admin: 08/03/24 10:29 Dose: 500 mg Atorvastatin Calcium (Atorvastatin Calcium 40 Mg Tablet) 40 mg PO BEDTIME [facility] Last Admin: 08/02/24 23:50 Dose: 40 mg Calcium Carbonate (Calcium Carbonate 750 Mg Tab.Chew) 750 mg PO Q4H PRN PRN Reason: Heartburn Ceftriaxone Sodium (Ceftriaxone Sodium 1 Gm Vial) 1 gm IVPUSH BEDTIME [facility] Last Admin: 08/03/24 01:32 Dose: 1 gm Clopidogrel Bisulfate (Clopidogrel Bisulfate 75 Mg Tablet) 75 mg PO DAILY [facility] Last Admin: 08/03/24 10:30 Dose: 75 mg Cyanocobalamin (Cyanocobalamin (Vitamin B-12) 1,000 Mcg Tablet) 1,000 mcg PO DAILY [facility] Last Admin: 08/03/24 10:32 Dose: 1,000 mcg Dextrose (Dextrose 50 % 25 Gm/50 Ml Syringe) 25 gm IVPUSH Q15M PRN; Protocol PRN Reason: per Hypoglycemia Standing Ord. Furosemide (Furosemide 20 Mg Tablet) 20 mg PO DAILY [facility]; Protocol Last Admin: 08/03/24 10:31 Dose: 20 mg Glucose (Glucose Gel 15 Gm Gel..Gram.) 15 gm PO Q15M PRN; Protocol PRN Reason: per Hypoglycemia Standing Ord. Heparin Sodium (Porcine) (Heparin Sodium,Porcine 5,000 Unit/Ml Vial) 5,000 unit SUBCUT Q8H [facility] Last Admin: 08/03/24 06:07 Dose: 5,000 unit Hydromorphone HCl (Hydromorphone Hcl 0.5 Mg/0.5 Ml Syringe) 0.25 mg IVPUSH Q4H PRN; Protocol PRN Reason: Pain, Severe (Pain Scale 7-10) Insulin Glargine (Insulin Glargine,Hum.Rec.Anlog 100 Unit/Ml 10 Ml Vial) 22 unit SUBCUT DAILY [facility] Last Admin: 08/03/24 10:33 Dose: Not Given Insulin Human Lispro (Insulin Lispro 100 Unit/Ml 3 Ml Vial) 0 unit SUBCUT QIDACHS [facility]; Protocol Last Admin: 08/03/24 07:34 Dose: Not Given Levothyroxine Sodium (Levothyroxine Sodium 88 Mcg Tablet) 88 mcg PO DAILY@0600 [facility] Last Admin: 08/03/24 06:08 Dose: 88 mcg Melatonin (Melatonin 3 Mg Tablet) 6 mg PO BEDTIME PRN PRN Reason: Insomnia Metoprolol Succinate (Metoprolol Succinate Er 25 Mg Tab.Er.24h) 25 mg PO BID [facility]; Protocol Last Admin: 08/03/24 10:29 Dose: 25 mg Ondansetron HCl (Ondansetron Hcl 4 Mg/2 Ml Vial) 4 mg IVPUSH Q8H PRN PRN Reason: Nausea and Vomiting Oxycodone HCl (Oxycodone Hcl Immed Release 5 Mg Tablet) 5 mg PO Q6H PRN PRN Reason: Pain, Moderate(Pain Scale 4-6) Sodium Chloride (0.9 % Sodium Chloride Flush 3 Ml Syringe) 3 ml IVFLUSH QSHIFT [facility] Last Admin: 08/03/24 07:36 Dose: Not Given Vitamin D (Cholecalciferol (Vitamin D3) 25 Mcg Tablet) 50 mcg PO DAILY [facility] Last Admin: 08/03/24 10:30 Dose: 50 mcg Home Medications ?Medication ?Instructions ?Recorded ?Confirmed ?Last Taken ?Type metoprolol succinate 25 mg 25 mg PO BID 01/13/20 08/02/24 08/02/24 History tablet,extended release 24 hr lancets 28 gauge #100 ea 04/25/20 07/14/24 Unknown History furosemide 20 mg tablet 20 mg PO DAILY 07/20/20 08/02/24 08/02/24 History acetaminophen 325 mg tablet 650 mg PO Q6H PRN Pain 01/16/22 08/02/24 Unknown History atorvastatin 40 mg tablet 40 mg PO BEDTIME 08/02/24 08/02/24 08/01/24 History insulin glargine 100 unit/mL (3 32 unit subcut BEDTIME 08/02/24 08/02/24 08/01/24 History mL) subcutaneous pen (Basaglar KwikPen U-100 Insulin) insulin lispro 100 unit/mL See Rx Instructions subcut 08/02/24 08/02/24 08/02/24 History subcutaneous pen (Admelog SoloStar USEASDIRECTD U-100 Insulin lispro) levothyroxine 88 mcg tablet 88 mcg PO DAILY@0600 08/02/24 08/02/24 08/02/24 History Physical Exam 2 Vital Signs: Vital Signs: Last Vital Signs Temp 97.0 F 08/03/24 08:55 Pulse 86 08/03/24 10:29 Resp 18 08/03/24 08:55 BP 121/58 L 08/03/24 10:31 Pulse Ox 100 08/03/24 08:55 O2 Del Method Room Air 08/03/24 08:55 BMI result Body Mass Index 26.0 Neuro: Other: Mild left sided weakness Results Labs 08/03/24 04:51 08/03/24 04:51 Labs: Short CBC 08/02/24 08/03/24 Range/Units 11:43 04:51 WBC 5.7 6.5 (4.8-10.8) X10*3/uL Hgb 9.7 L 10.5 L (12.0-16.0) g/dl Hct 28.8 L 31.5 L (37.0-47.0) % Plt Count 326 D 352 (160-400) X10*3/uL BMP 08/02/24 08/03/24 11:43 04:51 Sodium 137 139 Potassium 4.9 4.9 Chloride 113 H 115 H Carbon Dioxide 16 L 15 L BUN 44 H 45 H Creatinine 1.95 H 1.94 H Calcium 9.3 9.6 Urine 08/02/24 Range/Units 12:34 Urine Color Yellow Urine Appearance Cloudy Urine pH 6.5 (5.0-9.0) Ur Specific [place] 1.010 (1.005-1.025) Urine Protein 30 (1+) H (Neg-Trace) mg/dL Urine Glucose (UA) 100 H (Negative) mg/dL Microbiology Microbiology Results: Microbiology 08/02/24 Unknown Urine clean catch - Clean Catch Midstream Urine Culture - Preliminary Gram negative alvino Assessment and Plan (1) Urinary tract infection: Status: Acute Treat UTI (2) Weakness: Status: Acute Probably related to UTI. Recom. MRI brain to r/o new small infarct Procedures Date of Service Date of Service: 08/03/24
[2024-08-03 11:16] LABS: Glucose, Whole Blood 108 mg/dL (60-115)
[2024-08-03] MEDS: Sodium Bicarbonate 650 MG TABLET PO (11:20)
--- NOTE | 2024-08-03 12:22 | MHC.CM.PN ---
Addendum entered by Deb Chao RN 08/03/24 14:05: CM CONTACTED PT'S DTR/HCP/YEAST FERMENTATION ATTENDANT DAVID P[facility]T. RECOMMENDED STR VS HOME SERVICES, DAVDI REPORTS PT SHOULD COME PER PT WISHES AND THEY DO NOT WANT HER TO GOT TO STR, DAVID ALSO REPORTS PT HAS DIFFICULTY W/ANY WALKER THAT DOES DOES NOT HAVE 4 WHEELS. Original Note: IMM 08/03/24 DELIVERED TO BEDSIDE, EMR REVIEWED, VM MET E/PT VIA POT FIRER, PT REPORTS SHE LIVES W/HER SPOUSE/2 DTRS/KEVIN/4GKIDS, PT USES A ROLLATOR, SHOWER BENCH AND DIABETIC SUPPLIES INCLUDING INSULIN FOR DME, HER DTR/HCP IS HER YEAST FERMENTATION ATTENDANT, PT UNSURE OF TOTAL HRS, PT'S GOAL IS FOR DC HOME W/SERVICES. PCP VERIFIED KIN ULLOA AND HCP FILE IS DTR/PRIMARY CONTACT DAVID AND ON FILE FROM PREVIOUS ADMIT.
--- NOTE | 2024-08-03 13:29 | MHC.CM.PN ---
ANTIC PT WILL BE MEDICALLY CLEARED FOR DC HOME W/NEW COMFORT PLUS [facility] FOR OT/PT POSSIBLY NEW SN, RESUMPTION OF MEDICAL LAB SPECIALIST HRS, PT WILL CALL DTR FOR TRANSPORT
--- NOTE | 2024-08-03 14:18 | W.MHC.F2F ---
Service Date Service Date: 08/03/24 Encounter Date of encounter: 08/03/24 Reasons for Services Signs and symptoms assessed: weakness, uti Reason for alf: medication management and teach disease management Reason for physical therapy: home safety and mobility, therapeutic exercises and gait/transfer training Reason for occupational therapy: home safety and mobility, therapeutic exercises and gait/transfer training Homebound: Leaving the home is medically contraindicated at this time without the asist of a device and/or another person due th the listed conditions above and below. Reason homebound: leg weakness and unable to drive Homebound supporting statement: weakness related to uti, and old stroke, at risk for fall and self injury and therefore needs the assistance of another person Certification: Based on the above findings, I certify that this patient is confined to the home and needs intermittent alf care, physical therapy and/or speech therapy, or continues to need occupational therapy. The patient is under my care, and I have initiated the establishment of the plan of care. The patient will be followed by a physician who will periodically review the plan of care. Time Spent With Patient Time: Total time managing care of this patient today ____ minutes.
[2024-08-03] MEDS: 0.9 % Sodium Chloride Flush 3 ML SYRINGE IVFLUSH (14:29)
[2024-08-03 16:47] LABS: Glucose, Whole Blood 167 mg/dL (60-115)
== END 2024-08-03 17:38 | disposition home health service (06) | DRG 683 ==
LOC: HO.ED 18:24 → HO.EDOVER 22:30 → HO.IMC 08-03 07:27
PROVIDERS: Emergency Medicine Emergency Medical Services; Admitting Provider Physician Assistant; Emergency Provider Emergency Medicine; PCP Internal Medicine; Visit Provider Internal Medicine
DX: I12.9 Hypertensive chronic kidney disease with stage 1 through stage 4 chronic kidney disease, or unspecified chronic kidney disease (principal); E87.22 Chronic metabolic acidosis; E11.22 Type 2 diabetes mellitus with diabetic chronic kidney disease; B96.1 Klebsiella pneumoniae [K. pneumoniae] as the cause of diseases classified elsewhere; R53.1 Weakness; E87.8 Other disorders of electrolyte and fluid balance, not elsewhere classified; N18.30 Chronic kidney disease, stage 3 unspecified; E78.5 Hyperlipidemia, unspecified; D63.1 Anemia in chronic kidney disease; E03.9 Hypothyroidism, unspecified; Z20.822 Contact with and (suspected) exposure to COVID-19; Z79.4 Long term (current) 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; Z79.02 Long term (current) use of antithrombotics/antiplatelets; Z79.890 Hormone replacement therapy; Z79.899 Other long term (current) drug therapy
CPT/HCPCS: 0241U; 36415; 70450; 70551; 80048; 80061; 81001; 82947; 83036; 83605; 84484; 85025; 85610; 85730; 87040; 87086; 87088; 87186; 93005; 97161; 97162; 97165; 99285; J0696; J1200; J1644; J1956

== ENCOUNTER → 2024-08-02 10:29 | Outpatient (BNV) | payer MEDICARE, MEDICAID, SELFPAY | PROVIDERS: Emergency Provider Emergency Medicine; PCP Internal Medicine; Visit Provider Internal Medicine | DX: I63.9 Cerebral infarction, unspecified (principal) | CPT/HCPCS: 93010 ==

== ENCOUNTER → 2024-08-02 10:29 | Outpatient (BNV) | payer MEDICARE, MEDICAID, SELFPAY | PROVIDERS: Emergency Provider Emergency Medicine Emergency Medical Services; PCP Internal Medicine; Visit Provider Radiology Diagnostic Radiology | DX: I69.314 Frontal lobe and executive function deficit following cerebral infarction (principal) | CPT/HCPCS: 70450 ==

== ENCOUNTER 2024-08-02 22:10 | Outpatient (BNV) | payer MEDICARE, MEDICAID, SELFPAY | END 2024-08-03 11:45 | PROVIDERS: Admitting Provider Physician Assistant; Emergency Provider Emergency Medicine; PCP Internal Medicine; Visit Provider Radiology Diagnostic Radiology | DX: R53.1 Weakness (principal) | CPT/HCPCS: 70551 ==

== ENCOUNTER → 2024-08-02 22:10 | Outpatient (BNV) | payer MEDICARE, MEDICAID, SELFPAY | PROVIDERS: Admitting Provider Physician Assistant; Emergency Provider Emergency Medicine; PCP Internal Medicine; Visit Provider Psychiatry & Neurology Neurology | DX: N39.0 Urinary tract infection, site not specified (principal); R53.1 Weakness | CPT/HCPCS: 99222 ==

== ENCOUNTER → 2024-08-02 22:10 | Outpatient (BNV) | payer MEDICARE, MEDICAID, SELFPAY | PROVIDERS: Admitting Provider Physician Assistant; Emergency Provider Emergency Medicine; PCP Internal Medicine; Visit Provider Internal Medicine | DX: R53.1 Weakness (principal); N12 Tubulo-interstitial nephritis, not specified as acute or chronic; N39.0 Urinary tract infection, site not specified; E87.29 Other acidosis; N18.30 Chronic kidney disease, stage 3 unspecified | CPT/HCPCS: 99223; 99239; G0180 ==

== ENCOUNTER 2024-08-17 13:15 | Outpatient (REF) | payer MEDICARE, MEDICAID, SELFPAY ==
[2024-08-17 16:11] LABS: Appearance Urine Clear; Color Urine Yellow; Glucose Urine UA 250 mg/dL (Negative); Leukocyte Esterase Urine Small (1+) (Negative); Nitrite Urine Negative (Negative); PH 6.5 (5.0-9.0); Specific Gravity - Urine 1.015 (1.005-1.025); UMIC TRIGGER UACC YES; Urine Blood Negative (Negative); Urine Ketones Negative (Negative); Urine Protein 30 (1+) mg/dL (Neg-Trace)
[2024-08-17 16:28] LABS: Bacteria Urine None Seen (None Seen); Hyaline Casts Urine 0-2 /LPF (0-2); RBC Urine 0-2 /HPF (0-2); Squamous Epithelial Cell Urine 0-2 /HPF (0-2); UACC Culture Trigger YES
[2024-08-17 16:40] LABS: Anion Gap 15 (12-20); Blood Urea Nitrogen 42 mg/dL (9-16); Calcium 9.1 mg/dL (8.4-10.2); Carbon Dioxide 14 mmol/L (22-29); Chloride 113 mmol/L (96-108); Estimated Glomerular Filt Rate 31; Glucose Random 113 mg/dL (60-115); Potassium 4.7 mmol/L (3.3-5.1); Sodium 137 mmol/L (135-145)
== END 2024-08-17 13:16 | disposition home or self-care (01) ==
LOC: HO.HMGCLDS 13:15
PROVIDERS: PCP Internal Medicine; Visit Provider Internal Medicine
DX: Z09 Encounter for follow-up examination after completed treatment for conditions other than malignant neoplasm (principal); R53.1 Weakness; N39.0 Urinary tract infection, site not specified; R29.898 Other symptoms and signs involving the musculoskeletal system; R26.9 Unspecified abnormalities of gait and mobility; N28.9 Disorder of kidney and ureter, unspecified; E11.22 Type 2 diabetes mellitus with diabetic chronic kidney disease; N18.30 Chronic kidney disease, stage 3 unspecified; E78.2 Mixed hyperlipidemia; E11.42 Type 2 diabetes mellitus with diabetic polyneuropathy; E55.9 Vitamin D deficiency, unspecified; Z86.73 Personal history of transient ischemic attack (TIA), and cerebral infarction without residual deficits; Z79.4 Long term (current) 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; Z79.899 Other long term (current) drug therapy; Z91.81 History of falling
CPT/HCPCS: 36415; 80048; 81001; 87086; 99495

== ENCOUNTER 2024-08-17 13:15 | Outpatient (AMB) | payer MEDICARE, MEDICAID, SELFPAY ==
--- NOTE | 2024-08-17 13:19 | A.OFFPC_ITS ---
Vital Signs 08/17/24 13:22 Height 4 ft 10 in Weight 133 lb BMI 27.8 BP 112/62 Blood Pressure Location Rt brachial Position Sitting Pulse 76 Pulse Source Pulse Oximeter Temp 97.7 F Temp Source Oral Pulse Oximetry (%) 100 Oxygen Delivery Method Room Air Intake Visit Reasons: TCM Allergies aspirin [ASPIRIN] Allergy (Severe, Verified 08/17/24 13:22) Swelling, rash fish derived [FISH] Allergy (Mild, Verified 08/17/24 13:22) Rash, Swelling Penicillins [PENICILLINS] Allergy (Unknown, Verified 08/17/24 13:22) Swelling Medication List - Last Reconciled 08/17/24 by Kimi Patino MD acetaminophen 650 mg PO Q6H PRN ascorbate calcium (vitamin C) 500 mg PO DAILY 90 days atorvastatin 40 mg PO BEDTIME [Bedside commode As directed] blood sugar diagnostic (FreeStyle Lite Strips) As directed three times a day blood-glucose meter (FreeStyle Lite Meter kit) As directed 4x/day cholecalciferol (vitamin D3) 50 mcg PO DAILY 30 days clopidogrel 75 mg PO DAILY cyanocobalamin (vitamin B-12) (Vitamin B-12) 1,000 mcg PO DAILY flash glucose sensor (FreeStyle Angela 2 Sensor kit) Once every 14 days furosemide 20 mg PO DAILY insulin glargine (Basaglar KwikPen U-100 Insulin) 32 units subcut BEDTIME insulin lispro (Admelog SoloStar U-100 Insulin lispro) tid with meals 100-150 12 units 151-250 14 units over 250 16 units subcutaneously use as directed; MDD 48 units lancets As directed levothyroxine 88 mcg PO DAILY@0600 metoprolol succinate ER 25 mg PO BID pen needle, diabetic (BD Denisa 2nd Gen Pen Needle) USE DIRECTED FOUR TIMES DAILY [raised toilet seat with arms As directed] [Shower chair with arms As directed] sodium bicarbonate 650 mg PO BID [walker with seat and breaks As directed] Tobacco use date assessed: 08/17/24 Fall risk assessment: No Falls in past year Last assessed Fall Risk: 08/17/24 Dental Screening Dental Screen Date: 08/17/24 Did you have a dental visit in the last 12 months?: No Did you have a dental problem in the last 6 months where you did not have access to dental care?: No Was dental information given to patient?: No HPI TCM HPI Details Patient is 74-year-old female came in today for hospital discharge follow up Date of admission 08/02/2024 Date of discharge 08/03/2024 Consultation was provided by Neurology for left-sided weakness rule out CVA Patient has a history of insulin-dependent diabetes, hypertension, chronic kidney disease 3, history of CVA in 206, hypothyroidism, lipid disorder, chronic anemia. She presented to emergency room due to left-sided weakness over past 1-2 weeks worsening morning of visit. Daughter stated that patient has been ambulating with a limp, she usually uses walker to ambulate. She also had a questionable left-sided facial droop Patient denied any headache or visual changes CT scan showed no acute stroke Discharge diagnosis Weakness UTI New medications were cefuroxime 250 mg q.12 for 9 days She was also given sodium bicarbonate to be taken b.i.d. Her other medications are metoprolol 25 mg Vitamin-D Furosemide 20 mg daily Clopidogrel 75 mg B12 Atorvastatin 40 Levothyroxine 88 Acetaminophen as needed Insulin glargine 32 units at bedtime Insulin lispro as per insulin sliding scale T.i.d. with meals - History of toe infection: The conditio n was noticed after her urinary tract infection, with the affected toe appearing swollen and infected. It was observed to be worsening, beginning with discomfort and progressing to significant swelling and infection. The toe infection was noted shortly after a urine infection was diagnosed, during which she received doxycycline for treatment. At her recent visit to emergency room last Friday - Progressive neuropathic symptoms ident ified as a neurogenic bladder; patient experiences urinary retention making it challenging to fully empty the bladder. - History of loss of weight: Decline fro m 138 lbs in March to 133 lbs at present, although the patient perceives her appetite as adequate. - Noted renal function decline Medical History: - History of diabetes mellitus. - History of stroke. - Recurrent urinary tract infections. - Known penicillin allergy. - Diminished kidney function. - Neurogenic bladder attributed to neuro markos. - Swelling and infection of the toes in the setting of diabetes. Social History: - Family caregiver described challenges in managing dual parental care. - The patient maintains a routine domici liary environment with supportive family assistance. - It is inferred the management of urina ry retention and recurrent UTIs have impacted the patient's functional status. - Positive adherence to podiatry follow- ups emphasizing diabetes-related foot care. Problem List - Toe infection secondary to bacteria. - Recurrent urinary tract infections. - Diabetes mellitus with complications. - Stroke sequelae affecting mobility. - Neurogenic bladder. - Kidney function reduction. Patient Instructions - Continue taking doxycycline as prescri bed. - Follow up with a urinalysis to evaluat e any ongoing urinary tract issues. - Maintain podiatry appointments regular ly to manage foot care due to diabetes. - Schedule and attend urologist appointm ent as advised. Review of Systems - General: No fever no chills - Neurological: No headaches no dizziness - Ear nose throat: No sore throat no hearing difficulty no ear pain - Cardiovascular: No syncope, no chest pain, no palpitations - Gastrointestinal: No nausea vomiting or diarrhea Physical Exam General: No acute distress, walk with the help of walker HEENT: No acute findings Neck: Supple Respiratory system: Able to talk in full sentences, no audible wheeze Cardiovascular: S1-S2 regular in rate and rhythm Gastrointestinal: No pain Extremities: Swollen feet, particularly the left side, with swollen big toe with some erythema BUNDLES HANGER: Alert awake oriented x3 Skin: Normal turgor, TCM TCM Information Date of Discharge 08/03/24 Discharged From [facility] Interactive Contact Date (Reference documentation from this date) 08/04/24 HPI Comments History of Present Illness Details Date of admission/discharge: 08/02/2024 till 08/05/2024 Facility: [facility] Discharge 2/current location: Home Diagnosis/procedure: Weakness/UTI New/DC medications: Cefuroxime and sodium bicarbonate Changed medication/dozing: None Pending labs/tests: None Call to patient: Date/time Outcome TCM discharge location/reason HMC/UTI/r/o CVA TCM discharge date 08/03/24 TCM Interactive Contact Date 08/04/24 at 12:30 TCM medications reconciled Yes TCM discharge follow-up appointment scheduled No Patient received discharge instructions Yes All patient questions answered Yes Teach back Yes TCM details Daughter states mom is doing ok, meds reconciled, discharge documents noted, message left for tcm apt . How are you feeling? Back to baseline Any pain or discomfort? No just chronic aches and pains Do you have any questions about your condition or discharge instructions? No Were you able to get her medications filled? Yes Do you have any questions about your medications? No Were you able to schedule your follow-up appointments? Yes If home health was ordered, have they contacted you? Yes PT OT initiated Any outpatient services, if so, are you scheduled? None Are there any additional resources like transportation you might need during your recovery? No Educational needs/resources: Provided What support system do you have? 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 Mother Pancreatic cancer Social History Household Members: Children Housing: House Do you presently have visiting nurse or other home services: No Alcohol intake: current Alcohol intake frequency: does not drink Patient Tobacco Use Status: Never used Tobacco e-Cigarette/Vaping Use: Never Used Second Hand Smoke Exposure: No Advance Directives Date on File: 02/04/20 service: No Current occupational status: unemployed Cognitive needs: No Hearing needs: No Vision needs: Yes Questionnaire Thrive Questionnaire Date Thrive assessed: 07/14/24 I am a: Patient What is your living situation today?: I have a steady place to live Within the past 12 months, did the food you bought not last and you didn't have the money to get more?: Never true Within the past 12 months, did you worry whether your food would run out before you got money to buy more?: Never true Do you have trouble paying for medicines?: No Do you have trouble getting transportation to medical appointments?: Yes Do you have trouble paying your heating and electricity bill?: No Do you have trouble taking care of your child, family member or friend?: I choose not to answer this question Do you have trouble with day-to-day activities such as bathing, preparing meals, shopping, managing finances, etc.?: Yes Are you currently unemployed and looking for a job?: No Are you interested in more education?: No Please select the resources that you would like help with: None Currently or been in a relationship where the following occur: No concerns reported THRIVE Score: 1 VINCENZO-7 AMB Questionnaire VINCENZO-7 Date VINCENZO - 7 assessed: 07/14/24 Source: Developed by Drs. Sae Nickerson, Tiffanie Andre, Giovani Chakraborty and colleagues, with an educational elsie from [employer]. Physical exam (Primary Care) Tobacco/Smoking Status: Tobacco use Status Tobacco use date assessed 07/14/24 07/14/24 12:28 Patient Tobacco Use Status Never used Tobacco 08/03/24 14:14 e-Cigarette/Vaping Use Never Used 07/14/24 12:25 Thrive Assessment: Date of Thrive Assessment Date Thrive assessed 07/14/24 08/17/24 13:17 Currently or been in a relationship where the following occur: No concerns reported Coding Level of Care Code TCM Mod MDM <= 14 Days Diagnoses Hospital discharge follow-up Z09 Weakness R53.1 Recurrent UTI N39.0 Leg weakness, bilateral R29.898 Gait disturbance R26.9 Nephropathy N28.9 CKD stage 3 due to type 2 diabetes mellitus E11.22; N18.30 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 Z79.4 Mixed hyperlipidemia E78.2 Hyperlipidemia type: mixed hyperlipidemia Diabetic polyneuropathy associated with type 2 diabetes mellitus E11.42 Diabetes mellitus complication detail: diabetic polyneuropathy Diabetes mellitus type: type 2 Vitamin D deficiency E55.9 History of CVA (cerebrovascular accident) Z86.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, managed as type 2 E13.9 Risk for falls Z91.81 Assessment & Plan Assessment & Plan (1) Hospital discharge follow-up: Code(s): Z09 - Encounter for follow-up examination after completed treatment for conditions other than malignant neoplasm Category: Medical (2) Weakness: Code(s): R53.1 - Weakness Category: Medical (3) Recurrent UTI: Code(s): N39.0 - Urinary tract infection, site not specified Category: Medical (4) Leg weakness, bilateral: Code(s): R29.898 - Other symptoms and signs involving the musculoskeletal system Category: Medical (5) Gait disturbance: Code(s): R26.9 - Unspecified abnormalities of gait and mobility Category: Medical (6) Nephropathy: Code(s): N28.9 - Disorder of kidney and ureter, unspecified Category: Medical (7) CKD stage 3 due to type 2 diabetes mellitus: Code(s): E11.22 - Type 2 diabetes mellitus with diabetic chronic kidney disease; N18.30 - Chronic kidney disease, stage 3 unspecified Category: Medical (8) [facility] (current) 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: Code(s): Z79.4 - [facility] (current) 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 Category: Medical (9) Hyperlipemia: Code(s): E78.5 - Hyperlipidemia, unspecified Category: Medical Qualifiers: Hyperlipidemia type: mixed hyperlipidemia Qualified Code(s): E78.2 - Mixed hyperlipidemia (10) Diabetic neuropathy: Code(s): E11.40 - Type 2 diabetes mellitus with diabetic neuropathy, unspecified Category: Medical Qualifiers: Diabetes mellitus complication detail: diabetic polyneuropathy Diabetes mellitus type: type 2 Qualified Code(s): E11.42 - Type 2 diabetes mellitus with diabetic polyneuropathy (11) Vitamin D deficiency: Code(s): E55.9 - Vitamin D deficiency, unspecified Category: Medical (12) History of CVA (cerebrovascular accident): Code(s): Z86.73 - Personal history of transient ischemic attack (TIA), and cerebral infarction without residual deficits Category: Medical (13) Diabetes 1.5, managed as type 2: Code(s): E13.9 - Other specified diabetes mellitus without complications Category: Medical (14) Risk for falls: Code(s): Z91.81 - History of falling Category: Medical Plan Patient is 74-year-old female came in today for hospital discharge follow up Date of admission 08/02/2024 Date of discharge 08/03/2024 Consultation was provided by Neurology for left-sided weakness rule out CVA Patient has a history of insulin-dependent diabetes, hypertension, chronic kidney disease 3, history of CVA in , hypothyroidism, lipid disorder, chronic anemia. She presented to emergency room due to left-sided weakness over past 1-2 weeks worsening morning of visit. Daughter stated that patient has been ambulating with a limp, she usually uses walker to ambulate. She also had a questionable left-sided facial droop Patient denied any headache or visual changes CT scan showed no acute stroke Discharge diagnosis Weakness UTI New medications were cefuroxime 250 mg q.12 for 9 days She was also given sodium bicarbonate to be taken b.i.d. Her other medications are metoprolol 25 mg Vitamin-D Furosemide 20 mg daily Clopidogrel 75 mg B12 Atorvastatin 40 Levothyroxine 88 Acetaminophen as needed Insulin glargine 32 units at bedtime Insulin lispro as per insulin sliding scale T.i.d. with meals - History of toe infection: The condition was noticed after her urinary tract infection, with the affected toe appearing swollen and infected. It was observed to be worsening, beginning with discomfort and progressing to significant swelling and infection. The toe infection was noted shortly after a urine infection was diagnosed, during which she received doxycycline for treatment. At her recent visit to emergency room last Friday - Progressive neuropathic symptoms identified as a neurogenic bladder; patient experiences urinary retention making it challenging to fully empty the bladder. - History of loss of weight: Decline from 138 lbs in March to 133 lbs at present, although the patient perceives her appetite as adequate. - Noted renal function decline Medical History: - History of diabetes mellitus. - History of stroke. - Recurrent urinary tract infections. - Known penicillin allergy. - Diminished kidney function. - Neurogenic bladder attributed to neuropathy. - Swelling and infection of the toes in the setting of diabetes. Social History: - Family caregiver described challenges in managing dual parental care. - The patient maintains a routine domiciliary environment with supportive family assistance. - It is inferred the management of urinary retention and recurrent UTIs have impacted the patient's functional status. - Positive adherence to podiatry follow-ups emphasizing diabetes-related foot care. Problem List - Toe infection secondary to bacteria. - Recurrent urinary tract infections. - Diabetes mellitus with complications. - Stroke sequelae affecting mobility. - Neurogenic bladder. - Kidney function reduction. Patient Instructions - Continue taking doxycycline as prescribed. - Follow up with a urinalysis to evaluate any ongoing urinary tract issues. - Maintain podiatry appointments regularly to manage foot care due to diabetes. - Schedule and attend urologist appointment as advised. Orders: Orders UA CC w/rflx Micro + Cult Today N39.0 - Urinary tract infection, site not specified Basic Metabolic Panel Today N28.9 - Disorder of kidney and ureter, unspecified
[2024-08-17 13:22] VITALS: BP 112/62; PULSE 76; TEMP 36.5; O2SAT 100; BMI 27.8
--- OUTSIDE RECORDS SUMMARY | 2024-08-17 15:09 | XMS_ITS | Clinical Summary ---
Author Organization 175 [facility] Address [address] [place] [address] Phone Care Team Providers Care Care Transition Coordinator Name Role Phone Kimi Patino MD Primary Care Provider [phone] Allergies Active Allergy Reactions Criticality Noted Date Comments Aspirin Hives,Other 2020 Ciprofloxacin Nausea And Vomiting 02/19/2022 Fish Containing Products 01/21/2022 Penicillins Hives,Other 2020 Sulfamethoxazole Nausea And Vomiting 05/04/2023 Trimethoprim Nausea And Vomiting 05/04/2023 Medications doxycycline (MONODOX) 100 mg capsule Take 1 capsule (100 mg total) by mouth 2 (two) times a day for 7 days. Take with at least 8 ounces (large glass) of water, do not lie down for 30 minutes after. Administer 2 hours before or after multivitamins, antacids, or other products containing polyvalent cations (i.e., calcium, iron, magnesium, selenium, zinc). 14 capsule 08/14/19 25 025 Active cephalexin (KEFLEX) 500 mg capsule Take 1 capsule (500 mg total) by mouth 3 (three) times a day for 10 days. 30 each 08/14/19 25 025 Discontinued Active Problems No known active problems Encounters Date Type Department Care Team Description 08/13/2024 10:36 AM EDT - 08/13/2024 12:42 PM EDT Emergency [facility] Emergency [address] [place] [address] Cellulitis of great toe of left foot (Primary Dx) Discharge Disposition: Home or Self Care 06/28/2024 11:00 AM EDT Office Visit Orthopedic Surgery [place] [phone] [phone] Ravindra Gan DPM Acquired hammer toe of right foot (Primary Dx); Hammer toe of left foot; Type II diabetes mellitus with peripheral circulatory disorder ([facility] V24, [facility] V28); Diabetic mononeuropathy simplex ([facility] V24, [facility] V28); Dermatophytosis of nail from Last 3 Months Medical History Medical History Date Comments Diabetes mellitus ([facility] V24, [facility] V28) Hypertension Stroke ([facility] V24, [facility] V28) CKD (chronic kidney disease) Arthritis Social History Tobacco Use Types Packs/Day Years Used Date Smoking Tobacco: Never Smokeless Tobacco: Never Tobacco Cessation:Counseling Given: Not Answered Comments Unknown Sex and Gender Information Value Date Recorded Sex Assigned at Not on file Legal Sex Female 10:46 PM EST Gender Identity Not on file Sexual Orientation Not on file Obstetrics History Last Filed Vital Signs Vital Sign Reading Time Taken Comments Blood Pressure 129/48 08/13/2024 10:32 AM EDT Pulse 73 08/13/2024 10:32 AM EDT Temperature 36.6 ??C (97.9 ??F) 08/13/2024 10:32 AM E DT Respiratory Rate 18 08/13/2024 10:32 AM EDT Oxygen Saturation 100% 08/13/2024 10:32 AM EDT Inhaled Oxygen Concentration - - Weight 61.2 kg (135 lb) 08/13/2024 10:32 AM EDT Height 147.3 cm (4' 10 ) 08/13/2024 10:32 AM EDT Body Mass Index 28.22 08/13/2024 10:32 AM EDT Plan of Treatment Upcoming Encounters Date Type Department Care Team (Late st Contact Info) Description 08/18/2024 1:15 PM EDT Office Visit Orthopedic Surgery [place] [phone] [phone] Ravindra Gan DPM [address] [address] 09/29/2024 10:30 AM EDT Office Visit Orthopedic Surgery - [place] 250 175 [facility] [address] [place] [phone] Ravindra Gan, DPM 175 [facility] [address] [place] [address] Health Maintenance Due Date Last Done Comments [...] PCV21) 12/19/2022 12/19/2017, 10/12/2013, 07/06/2009 COVID-19 Vaccine ( season) 2023 07/16/2020, 06/25/2020 Diabetes: Annual Urine Albumin-Creatinine Ratio (uACR) 03/22/2024 Diabetes: Blood Sugar Control Test (HGBA1C) 03/22/2024 Influenza Vaccine (Season Ended) 2024 12/16/2019, 12/01/2018, 12/19/2017, Additional history exists Diabetes: Annual GFR (Glomerular Filtration Rate) 08/13/2025 08/13/2024, 12/22/2023 Hypertension/CHF/CAD Annual BMP Blood Test 08/13/2025 08/13/2024, 12/22/2023 DTaP,Tdap,and Td Vaccines (3 - Td [...] on patient's age to complete this topic Procedures Procedure Name Priority Date/Time Associated Diagnosis Comments XR TOES 2+ VIEWS LEFT STAT 08/13/2024 11:17 AM EDT CBC WITH AUTO DIFFERENTIAL STAT 08/13/2024 10:57 AM EDT BASIC METABOLIC PANEL STAT 08/13/2024 10:57 AM EDT CBC AND DIFFERENTIAL STAT 08/13/2024 10:57 AM EDT from Last 3 Months Results * XR Toes 2+ Views Left (08/13/2024 11:17 AM EDT) Anatomical Region Laterality Modality Lower Extremities, Toes Left [facility] Imaging 08/13/2024 11:3 1 AM EDT Impressions 08/13/2024 11:32 AM EDT FINDINGS/IMPRESSION: Three views of the great toe demonstrating no acute fracture. ??Normal alignment. ??There is soft tissue swelling. ??There are degenerative changes throughout the foot as well as osteopenia. ??There is a remote, healed fracture of the 5th metacarpal. ??Vascular calcifications. -------- FINAL REPORT -------- Dictated By: Carmen Canales Dictated Date: 08/13/2024 11:31 ET Assigned Physician: Carmen Canales Reviewed and Electronically Signed By: Carmen Canales Signed Date: 08/13/2024 11:32 ET Workstation ID: [id number] Transcribed By: Self Edit Transcribed Date: 08/13/2024 11:31 ET Narrative 08/13/2024 11:32 AM EDT XR TOES 2+ VIEWS LEFT INDICATION: pain and swelling TECHNIQUE: XR TOES 2+ VIEWS LEFT COMPARISON: No priors available. Procedure Note Carmen Canales MD - 08/13/2024 XR TOES 2+ VIEWS LEFT INDICATION: pain and swelling TECHNIQUE: XR TOES 2+ VIEWS LEFT COMPARISON: No priors available. IMPRESSION: FINDINGS/IMPRESSION: Three views of the great toe demonstrating no acutefracture. Normal alignment. There is soft tissue swelling. There aredegenerative changes throughout the foot as well as osteopenia. There valente remote, healed fracture of the 5th metacarpal. Vascular calcifications. -------- FINAL REPORT -------- Dictated By: Carmen Canales Dictated Date: 08/13/2024 11:31 ET Assigned Physician: Carmen Canales Reviewed and Electronically Signed By: Carmen Canales Signed Date: 08/13/2024 11:32 ET Workstation ID: [id number] Transcribed By: Self Edit Transcribed Date: 08/13/2024 11:31 ET Teetee ALLAN IMSegun XR PROCEDURES Final Result * (ABNORMAL) CBC auto differential (08/13/2024 10:57 AM EDT) WBC 5.9 4.8 - 10.8 K/mcL LAB HEMETOLOGY METHOD 08/13/2024 11:44 AM EDT [facility] RBC 3.10(L) 3.80 - 4.80 M/mcL LAB HEMETOLOGY METHOD 08/13/2024 11:44 AM EDT [facility] Hemoglobin 9.3(L) 11.5 - 16.0 g/dL LAB HEMETOLOGY METHOD 08/13/2024 11:44 AM EDT [facility] Hematocrit 29.3(L) 35.0 - 47.0 % LAB HEMETOLOGY METHOD 08/13/2024 11:44 AM [facility] MCV 95.8 79.0 - 98.0 FL LAB HEMETOLOGY METHOD 08/13/2024 11:44 AM [facility] MCH 30.4 27.0 - 32.0 pcg LAB HEMETOLOGY METHOD 08/13/2024 11:44 AM [facility] MCHC 31.7(L) 32.0 - 37.0 g/dL LAB HEMETOLOGY METHOD 08/13/2024 11:44 AM [facility] RDW 13.3 11.0 - 15.0 % LAB HEMETOLOGY METHOD 08/13/2024 11:44 AM [facility] Platelets 230 130 - 400 K/mcL LAB HEMETOLOGY METHOD 08/13/2024 11:44 AM [facility] MPV 10.4 7.0 - 11.0 FL LAB HEMETOLOGY METHOD 08/13/2024 11:44 AM [facility] NRBC 0.0 <1.0 % LAB HEMETOLOGY METHOD 08/13/2024 11:44 AM [facility] NRBC Absolute 0.00 <0.10 K/mcL LAB HEMETOLOGY METHOD 08/13/2024 11:44 AM [facility] Neutrophils Relative 70.5 % LAB HEMETOLOGY METHOD 08/13/2024 11:44 AM [facility] Lymphocytes Relative 18.2 % LAB HEMETOLOGY METHOD 08/13/2024 11:44 AM [facility] Monocytes Relative 8.3 % LAB HEMETOLOGY METHOD 08/13/2024 11:44 AM [facility] Eosinophils Relative 2.2 % LAB HEMETOLOGY METHOD 08/13/2024 11:44 AM [facility] Basophils Relative 0.5 % LAB HEMETOLOGY METHOD 08/13/2024 11:44 AM EDT [facility] Immature Granulocytes Relative 0.3 % LAB HEMETOLOGY METHOD 08/13/2024 11:44 AM EDT [facility] Neutrophils Absolute 4.13 1.50 - 7.00 K/mcL LAB HEMETOLOGY METHOD 08/13/2024 11:44 AM EDT [facility] Lymphocytes Absolute 1.07 1.00 - 5.00 K/mcL LAB HEMETOLOGY METHOD 08/13/2024 11:44 AM EDT [facility] Monocytes Absolute 0.49 0.20 - 1.00 K/mcL LAB [facility]OLOGY [facility] Eosinophils Absolute 0.13 0.00 - 0.50 K/mcL LAB HEMETOLOGY METHOD 08/13[facility]24 [facility] Basophils Absolute 0.03 0.00 - 0.20 K/mcL LAB HEMETOLOGY METHOD 08/13/2024 [facility] Immature Granulocytes Absolute 0.02 0.00 - 0.03 K/mcL LAB HEMETOLOGY METHOD 08/13/2024 11:44 AM [facility] Blood Venous blood specimen / Unknown Venipuncture / Unknown 08/13/2024 10:57 AM EDT 08/13/2024 11:37 AM EDT us Teetee ALLAN LAB BLOOD ORDERABLES Final Res ult [facility] [address] [place] [address], * (ABNORMAL) Basic metabolic panel (08/13/2024 10:57 AM EDT) Sodium 137 133 - 145 mmol/L LAB CHEMISTRY METHOD 08/13/2024 12:13 PM [facility] Potassium 5.1 3.5 - 5.5 mmol/L LAB CHEMISTRY METHOD 08/13/2024 12:13 PM [facility] Comment:Hemolysis present Chloride 108 96 - 110 mmol/L LAB CHEMISTRY METHOD 08/13/2024 12:13 PM [facility] CO2 19(L) 21 - 32 mmol/L LAB CHEMISTRY METHOD 08/13/2024 12:13 PM [facility] Anion Gap 10 3 - 11 LAB CHEMISTRY METHOD 08/13/2024 12:13 PM [facility] Glucose 161(H) 70 - 100 mg/dL LAB CHEMISTRY METHOD 08/13/2024 12:13 PM [facility] BUN 47(H) 5 - 25 mg/dL LAB CHEMISTRY METHOD 08/13/2024 12:13 PM [facility] Creatinine 1.86(H) 0.50 - 1.10 mg/dL LAB CHEMISTRY METHOD 08/13/2024 12:13 PM [facility] eGFR 28(L) >=60 mL/min/1. 73m2 LAB CHEMISTRY METHOD 08/13/2024 12:13 PM [facility] Comment:Calculation based on the Chronic Kidney Disease Epidemiology Collaboration (CKD-EPI) equation refit without adjustment for race. BUN/Creatinine Ratio 25.3 LAB CHEMISTRY METHOD 08/13/2024 12:13 PM [facility] Calcium 8.8 8.5 - 10.5 mg/dL LAB CHEMISTRY METHOD 08/13/2024 12:13 PM [facility] Blood Venous blood specimen / Unknown Venipuncture / Unknown 08/13/2024 10:57 AM EDT 08/13/2024 11:37 AM EDT us Teetee ALLAN LAB BLOOD ORDERABLES Final Res ult [facility] [address] [place] [address], from Last 3 Months Insurance [place] Care Teams Care Transition Coordinator Relationship Specialty Start Date End Date Kimi Patino MD [address] [place] [address] PCP - General 06/06/15
== END 2024-08-17 14:23 | disposition home or self-care (01) ==
LOC: HO.HMCC 13:17
PROVIDERS: PCP Internal Medicine; Visit Provider Internal Medicine
DX: E11.22 Type 2 diabetes mellitus with diabetic chronic kidney disease (principal); N18.30 Chronic kidney disease, stage 3 unspecified; Z79.4 Long term (current) 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; E11.42 Type 2 diabetes mellitus with diabetic polyneuropathy; E13.9 Other specified diabetes mellitus without complications; R53.1 Weakness; N39.0 Urinary tract infection, site not specified; R29.898 Other symptoms and signs involving the musculoskeletal system; Z09 Encounter for follow-up examination after completed treatment for conditions other than malignant neoplasm; R26.9 Unspecified abnormalities of gait and mobility; N28.9 Disorder of kidney and ureter, unspecified; E78.2 Mixed hyperlipidemia; E55.9 Vitamin D deficiency, unspecified; Z86.73 Personal history of transient ischemic attack (TIA), and cerebral infarction without residual deficits; Z91.81 History of falling

== ENCOUNTER 2024-09-23 14:22 | Outpatient (REF) | payer MEDICARE, MEDICAID, SELFPAY ==
--- OUTSIDE RECORDS SUMMARY | 2024-09-23 14:28 | XMS_ITS | Encounter Summary ---
Author Organization [facility] Address [address] [facility] [address] [place] [address] Phone Care Team Providers Care Marbleizing Machine Tender Name Role Phone Kimi Patino MD Primary Care Provider [phone] Encounter Details Date Type Department Care Team ([facility] Contact Info) Description 07/05/2020 Orders Only [facility] [address] [facility] [address] [place] [address] Provider, MD Brii Social History Tobacco Use Types Packs/Day Years [...] Upcoming Encounters Date Type Department Care Team ([facility] Contact Info) Description 02/17/2025 9:00 AM EST Office Visit [facility] [address] [phone] MD [address] [address] documented as of this encounter Procedures Procedure Name Priority Date/Time Associated Diagnosis Comments EXT RESULT ENTRY Routine 07/02/2020 EXT RESULT ENTRY Routine 07/01/2020 EXT RESULT ENTRY Routine 06/30/2020 documented in this encounter Results * EXT RESULT ENTRY (07/02/2020) [facility] Provider MD LAB BLOOD ORDERABLES Dora l Result * EXT RESULT ENTRY (07/01/2020) [facility] Provider MD LAB BLOOD ORDERABLES Dora l Result * EXT RESULT ENTRY (06/30/2020) [facility] Provider MD LAB BLOOD ORDERABLES Dora l Result documented in this encounter Visit Diagnoses Not on filedocumented in this encounter Care Teams Marbleizing Machine Tender Relationship Specialty Start Date End Date Kimi Patino MD [address] [place] [id number] PCP - General 03/13/20 documented as of this encounter
--- OUTSIDE RECORDS SUMMARY | 2024-09-23 14:28 | XMS_ITS | Clinical Summary ---
Author Organization 175 [facility] Address [address] [place] [address] Phone Care Team Providers Care Environmental Scientist Name Role Phone Kimi Patino MD Primary Care Provider [phone] Allergies Active Allergy Reactions Criticality Noted Date Comments Aspirin Hives,Other 2020 Ciprofloxacin Nausea And Vomiting 02/19/2022 Fish Containing Products 01/21/2022 Penicillins Hives,Other 2020 Sulfamethoxazole Nausea And Vomiting 05/04/2023 Trimethoprim Nausea And Vomiting 05/04/2023 Medications No known medications Active Problems No known active problems Encounters Date Type Department Care Team Description 08/18/2024 1:15 PM EDT Office Visit Orthopedic [facility] [address] [phone] Ravindra Gan DPM Cellulitis of left foot (Primary Dx); Ingrowing nail 08/13/2024 10:36 AM EDT - 08/13/2024 12:42 PM EDT Emergency [facility] Emergency [address] [place] [phone] Cellulitis of great toe of left foot (Primary Dx) Discharge Disposition: Home or Self Care 06/28/2024 11:00 AM EDT Office Visit Orthopedic [facility] [address] [phone] Ravindra Gan DPM Acquired hammer toe of right foot (Primary Dx); Hammer toe of left foot; Type II diabetes mellitus with peripheral circulatory disorder ([facility] V24, [facility] V28); Diabetic mononeuropathy simplex ([facility] V24, [facility] V28); Dermatophytosis of nail from Last 3 Months Medical History Medical History Date Comments Diabetes mellitus ([facility] V24, [facility] V28) Hypertension Stroke ([facility] V24, [facility] V28) CKD (chronic kidney disease) Arthritis Social [...] 73 08/13/2024 10:32 AM EDT Temperature 36.6 C (97.9 F) 08/13/2024 10:32 AM EDT Respiratory Rate 18 08/13/2024 10:32 AM EDT [...] AM EDT Office Visit Orthopedic Surgery - [place] [address] [phone] Ravindra Gan, DPM [address] [address] Health Maintenance Due Date Last Done Comments [...] Zoster Vaccines (2 of 2) 02/13/2018 12/19/2017 COVID-19 Vaccine (3 - Pfizer risk series) 08/13/2020 07/16/2020, 06/25/2020 Cholesterol Screening (Lipid Panel) 02/03/2022 Colorectal Cancer Screening: Colonoscopy 02/03/2022 Falls Risk Assessment 02/03/2022 Hepatitis C Screening 02/03/2022 Medicare Annual Wellness Visit 02/03/2022 Osteoporosis Screening (Bone Density Screening) 02/03/2022 Social Influencers of Health Screening 02/03/2022 Pneumococcal Vaccine: 50+ Years (4 of 4 - PCV20 or PCV21) 12/19/2022 12/19/2017, 10/12/2013, 07/06/2009 Depression Screening 03/03/2024 Diabetes: Annual Urine Albumin-Creatinine Ratio (uACR) 03/22/2024 Diabetes: Blood Sugar Control Test (HGBA1C) 03/22/2024 Influenza Vaccine (#1) 2024 , 12/01/2018, 12/19/2017, Additional history exists Diabetes: Annual [...] Region Laterality Modality Lower Extremities, Toes [facility] 08/13/2024 11:3 1 AM EDT Impressions 08/13/2024 11:32 AM EDT FINDINGS/IMPRESSION: Three views of the great toe demonstrating no acute fracture. Normal alignment. There is soft tissue swelling. There are degenerative changes throughout the foot as well as osteopenia. There is a remote, healed fracture of the 5th metacarpal. Vascular calcifications. -------- FINAL REPORT -------- Dictated By: Carmen Canales Dictated Date: 08/13/2024 11:31 ET Assigned Physician: Carmen Canales Reviewed and Electronically Signed By: Carmen Canales Signed Date: 08/13/2024 11:32 ET Workstation ID: [id number] Transcribed By: Self Edit Transcribed Date: 08/13/2024 [...] Signed Date: 08/13/2024 11:32 ET Workstation ID: [id number] Transcribed By: Self Edit Transcribed Date: 08/13/2024 11:31 ET us Teetee ALLAN IMG XR PROCEDURES Final Result * (ABNORMAL) CBC auto differential (08/13/2024 10:57 AM EDT) WBC 5.9 4.8 - 10.8 K/mcL LAB HEMETOLOGY METHOD 08/13/2024 11:44 AM [facility] RBC 3.10(L) 3.80 - 4.80 M/mcL LAB HEMETOLOGY METHOD 08/13/2024 11:44 AM [facility] Hemoglobin 9.3(L) 11.5 - 16.0 g/dL LAB HEMETOLOGY METHOD 08/13/2024 11:44 AM [facility] Hematocrit 29.3(L) 35.0 - 47.0 % LAB HEMETOLOGY METHOD 08/13/2024 11:44 AM [facility] MCV 95.8 79.0 - 98.0 FL LAB HEMETOLOGY METHOD 08/13/2024 11:44 AM [facility] MCH 30.4 27.0 - 32.0 pcg LAB HEMETOLOGY METHOD 08/13/2024 11:44 AM [facility] MCHC 31.7(L) 32.0 - 37.0 g/dL LAB HEMETOLOGY METHOD 08/13/2024 11:44 AM [facility] RDW 13.3 11.0 - 15.0 % LAB HEMETOLOGY METHOD 08/13/2024 11:44 AM [facility] Platelets 230 130 - 400 K/mcL LAB HEMETOLOGY METHOD 08/13/2024 11:44 AM [facility] MPV 10.4 7.0 - 11.0 FL LAB HEMETOLOGY METHOD 08/13/2024 11:44 AM [facility] NRBC 0.0 <1.0 % LAB HEMETOLOGY METHOD 08/13/2024 11:44 AM [facility] NRBC Absolute 0.00 <0.10 K/mcL LAB HEMETOLOGY METHOD 08/13/2024 11:44 AM [facility] Neutrophils Relative 70.5 % LAB HEMETOLOGY METHOD 08/13/2024 11:44 AM [facility] Lymphocytes Relative 18.2 % LAB HEMETOLOGY METHOD 08/13/2024 11:44 AM [facility] Monocytes Relative 8.3 % LAB HEMETOLOGY METHOD 08/13/2024 11:44 AM [facility] Eosinophils Relative 2.2 % LAB HEMETOLOGY METHOD 08/13/2024 11:44 AM [facility] Basophils Relative 0.5 % LAB HEMETOLOGY METHOD 08/13/2024 11:44 AM [facility] Immature Granulocytes Relative 0.3 % LAB HEMETOLOGY METHOD 08/13/2024 11:44 AM [facility] Neutrophils Absolute 4.13 1.50 - 7.00 K/mcL LAB HEMETOLOGY METHOD 08/13/2024 11:44 AM [facility] Lymphocytes Absolute 1.07 1.00 - 5.00 K/mcL LAB HEMETOLOGY METHOD 08/13/2024 11:44 AM [facility] Monocytes Absolute 0.49 0.20 - 1.00 K/mcL LAB HEMETOLOGY METHOD 08/13/2024 11:44 AM [facility] Eosinophils Absolute 0.13 0.00 - 0.50 K/[facility] LAB HEMETOLOGY METHOD 08/13/2024 11:44 AM EDT [facility] Basophils Absolute 0.03 0.00 - 0.20 K/[facility] LAB HEMETOLOGY METHOD 08/13/2024 11:44 AM EDT [facility] Immature Granulocytes Absolute 0.02 0.00 - 0.03 K/[facility] LAB HEMETOLOGY METHOD 08/13/2024 11:44 AM EDT [facility] Blood Venous blood specimen / Unknown Venipuncture / Unknown 08/13/2024 10:57 AM EDT 08/13/2024 11:37 AM EDT us Teetee ALLAN LAB BLOOD ORDERABLES Final Res ult [facility] [address] [place] [address], * (ABNORMAL) Basic metabolic panel (08/13/2024 10:57 AM EDT) Sodium 137 133 - 145 mmol/L LAB CHEMISTRY METHOD 08/13/2024 12:13 PM [facility] Potassium 5.1 3.5 - 5.5 mmol/L LAB CHEMISTRY METHOD 08/13/2024 12:13 PM [facility] Comment:Hemolysis present Chloride 108 96 - 110 mmol/L LAB CHEMISTRY METHOD 08/13/2024 12:13 PM [facility] CO2 19(L) 21 - 32 mmol/L LAB CHEMISTRY METHOD 08/13/2024 12:13 PM [facility] Anion Gap 10 3 - 11 LAB CHEMISTRY METHOD 08/13/2024 12:13 PM [facility] Glucose 161(H) 70 - 100 mg/dL LAB CHEMISTRY METHOD 08/13/2024 12:13 PM [facility] BUN 47(H) 5 - 25 mg/dL LAB CHEMISTRY METHOD 08/13/2024 12:13 PM EDT [facility] Creatinine 1.86(H) 0.50 - 1.10 mg/dL LAB CHEMISTRY METHOD 08/13/2024 12:13 PM EDT [facility] eGFR 28(L) >=60 mL/min/1. 73m2 LAB CHEMISTRY METHOD 08/13/2024 12:13 PM EDT [facility] Comment:Calculation based on the Chronic Kidney Disease Epidemiology Collaboration (CKD-EPI) equation refit without adjustment for race. BUN/Creatinine Ratio 25.3 LAB CHEMISTRY METHOD 08/13/2024 12:13 PM EDT [facility] Calcium 8.8 8.5 - 10.5 mg/dL LAB CHEMISTRY METHOD 08/13/2024 12:13 PM EDT [facility] Blood Venous blood specimen / Unknown Venipuncture / Unknown 08/13/2024 10:57 AM EDT 08/13/2024 11:37 AM EDT us Teetee ALLAN LAB BLOOD ORDERABLES Final Res ult [facility] [address] [place] [address], from Last 3 Months Insurance MEDICAID - [place] MEDICARE Care Teams Environmental Scientist Relationship Specialty Start Date End Date Kimi Patino MD [address] [place] [address] PCP - General 06/06/15
[2024-09-23 16:23] LABS: Appearance Urine Turbid; Glucose Urine UA 100 mg/dL (Negative); PH 6.5 (5.0-9.0); Specific Gravity - Urine 1.010 (1.005-1.025); UMIC TRIGGER UA YES
== END 2024-09-23 14:23 | disposition home or self-care (01) ==
LOC: HO.HMGCLDS 14:22
PROVIDERS: PCP Internal Medicine; Visit Provider Nurse Practitioner Family
DX: N39.0 Urinary tract infection, site not specified (principal)
CPT/HCPCS: 81001; 87086; 87088; 87186

== ENCOUNTER 2024-10-11 11:10 | Outpatient (AMB) | payer MEDICARE, MEDICAID, SELFPAY ==
[2024-10-11 11:13] VITALS: BP 128/74; PULSE 91; O2SAT 100; BMI 26.3
--- NOTE | 2024-10-11 11:13 | A.OFFVIS_ITS ---
Vital Signs 10/11/24 11:13 Height 4 ft 10 in Weight 125 lb 10.616 oz BMI 26.3 BP 128/74 Blood Pressure Location Rt brachial Position Sitting Pulse 91 Pulse Source Pulse Oximeter Pulse Oximetry (%) 100 Oxygen Delivery Method Room Air Intake Visit Reasons: DM Intake Note: Patient presents today for a follow-up Type 2 Diabetes Mellitus: Last Diabetic eye exam was on: Pt needs a new referral Last Podiatry exam was on: 08/25/[address] [place], [place] [address]Praveen Gan. Most recent HbA1c: 7.9%, 08/02/2024 Random Glucose- 193 mg/dL, Today Collar Turner Operator Required: Yes Collar Turner Operator Language: Priming Machine Operator Services: Collar Turner Operator Offered & Declined Collar Turner Operator Name: Daughter Accompanied by: Daughter Allergies aspirin (ASPIRIN) Allergy (Severe, Verified 10/11/24 11:19) Swelling, rash fish derived (FISH) Allergy (Mild, Verified 10/11/24 11:19) Rash, Swelling Penicillins (PENICILLINS) Allergy (Unknown, Verified 10/11/24 11:19) Swelling Medication List - Last Reconciled 10/11/24 by Destiny Lazo PA-C acetaminophen 650 mg PO Q6H PRN ascorbate calcium (vitamin C) 500 mg PO DAILY 90 days atorvastatin 40 mg PO BEDTIME [Bedside commode As directed] blood sugar diagnostic (FreeStyle Lite Strips) As directed three times a day blood-glucose meter (FreeStyle Lite Meter kit) As directed 4x/day cholecalciferol (vitamin D3) 50 mcg PO DAILY 30 days clopidogrel 75 mg PO DAILY cyanocobalamin (vitamin B-12) (Vitamin B-12) 1,000 mcg PO DAILY furosemide 20 mg PO DAILY glucagon 3 mg/actuation 3 mg intranasal ONCE PRN insulin glargine (Basaglar KwikPen U-100 Insulin) 25 units (0.25 mL) subcut BEDTIME insulin lispro (Admelog SoloStar U-100 Insulin lispro) tid with meals 100-150 12 units 151-250 14 units over 250 16 units subcutaneously use as directed; MDD 48 units lancets As directed levothyroxine 88 mcg PO DAILY@0600 metoprolol succinate ER 25 mg PO BID pen needle, diabetic (BD Denisa 2nd Gen Pen Needle) USE DIRECTED FOUR TIMES DAILY [raised toilet seat with arms As directed] [Shower chair with arms As directed] sodium bicarbonate 650 mg PO BID sulfamethoxazole-trimethoprim 800-160 mg (Bactrim DS) 1 tab PO BID 7 days [walker with seat and breaks As directed] HPI HPI DM: Details: Patient is a 74-year-old female with a significant past medical history of 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 Her daughter is here today with her. -of note today, family is concerned due to patient's weight loss. She has lost 20 lb in 1 year. No abdominal pain, appetite appears the same. The weight loss appears more rapid in the last few months to daughter. In the last 2 months she has lost 8 lb. She denies any nausea, vomiting, diarrhea or constipation. She is getting more frequent UTIs and has an appointment with Urology in November. She does not have any other concerns and does not feel ill just has been losing weight. Activity appears to be about the same per daughter. Endo: She was previously following with my colleagues for her diabetes. Her most recent A1c was. She is currently on Lantus 30 units nightly, lispro sliding scale. CGM-Angela to download shows usage 91%, average glucose 147, G mi 6.8%, variability 37%. Very hyperglycemic 7%, hyperglycemic 12%, in range 78%, low 3%, very low 0%. Lows appear to occur overnight. Following with [facility]- Seeing Dr. Weiner for paronychia CV: Blood pressure today in the office is 128/74. She is currently managed with metoprolol 25 mg twice a day, furosemide 20 mg daily. Cholesterol is managed with atorvastatin 40 mg. Nephro: Avoids NSAIDs. On Tylenol as needed for pain. [facility] with 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 Mother Pancreatic cancer Social History Household Members: Children Housing: House Do you presently have visiting nurse or other home services: No Alcohol intake: current Alcohol intake frequency: does not drink Patient Tobacco Use Status: Never used Tobacco e-Cigarette/Vaping Use: Never Used Second Hand Smoke Exposure: No Advance Directives Date on File: 02/04/20 service: No Current occupational status: unemployed Cognitive needs: No Hearing needs: No Vision needs: Yes Physical Exam Vital Signs: Last Vital Signs Pulse 91 10/11/24 11:13 BP 128/74 10/11/24 11:13 Pulse Ox 100 10/11/24 11:13 Oxygen Delivery Method Room Air 10/11/24 11:13 BMI result Body Mass Index 26.3 Const Orientation/consciousness: patient oriented x3 HEENT Ears: hearing grossly normal bilaterally Neck Thyroid: Thyroid normal Lymphatic: no lymphadenopathy noted Resp Auscultation: clear to auscultation bilaterally Cardio Rate: regular rate Rhythm: regular rhythm Heart sounds: S1 normal heart sound present and S2 normal heart sound present Neuro General: patient oriented x3, gait normal and no focal motor deficits Results Reviewed Results Reviewed: Laboratory Last Values Glucose (Clinic) 296 mg/dL (60-115) H 10/11/24 11:17 Laboratory Tests 08/02/24 08/17/24 11:43 13:59 Creatinine 1.65 H Estimated GFR 31 Random Glucose 113 Hemoglobin A1c % 7.9 H Triglycerides 80 Cholesterol 116 LDL Cholesterol, Calc 51 HDL Cholesterol 49 Assessment & Plan Assessment & Plan (1) Diabetes 1.5, managed as type 2: Code(s): E13.9 - Other specified diabetes mellitus without complications Category: Medical Plan: We will reduce the Basaglar to 25 units. They will let me know if she still has any lows. Doing well with the sliding scale. Continue current regimen. Return in 3 months. Referral to ophthalmology (2) Hyperlipemia: Code(s): E78.5 - Hyperlipidemia, unspecified Category: Medical Qualifiers: Hyperlipidemia type: mixed hyperlipidemia Qualified Code(s): E78.2 - Mixed hyperlipidemia Plan: WNL. Continue current regimen (3) HTN (hypertension): Code(s): I10 - Essential (primary) hypertension Category: Medical Qualifiers: Hypertension type: primary hypertension Qualified Code(s): I10 - Essential (primary) hypertension Plan: As above. Plan Patient's daughter is going to contact PCP today to review the weight loss. Orders: Referrals Ophthalmology Referral E13.9 - Other specified diabetes mellitus without complications, E78.2 - Mixed hyperlipidemia, I10 - Essential (primary) hy pertension Medications: New insulin lispro (Admelog SoloStar U-100 Insulin lispro) tid with meals 100-150 12 units 151-250 14 units over 250 16 units subcutaneously use as directed; 15 mL 4RF MDD 48 units glucagon 3 mg/actuation 3 mg intranasal ONCE PRN 1 ea 1RF hypoglycemia Changed From insulin glargine (Basaglar KwikPen U-100 Insulin) 32 units subcut BEDTIME To insulin glargine (Basaglar KwikPen U-100 Insulin) 25 units (0.25 mL) subcut BEDTIME 15 mL 5RF Coding Level of Care Code Est Pt Level 4 (38976) Complex EM visit Add On G2211 Diagnoses Diabetes 1.5, managed as type 2 E13.9 Mixed hyperlipidemia E78.2 Hyperlipidemia type: mixed hyperlipidemia Primary hypertension I10 Hypertension type: primary hypertension
[2024-10-11 11:21] LABS: Glucose, Whole Blood 296 mg/dL (60-115)
--- OUTSIDE RECORDS SUMMARY | 2024-10-11 11:54 | XMS_ITS | Encounter Summary ---
Author Organization [facility] Address [address] [facility] [address] [place] [address] Phone Care Team Providers Care Hvac Controls Technician Name Role Phone Kimi Patino MD Primary Care Provider [phone] Encounter Details Date Type Department Care Team ([facility] Contact Info) Description 07/05/2020 Orders Only [facility] [address] [facility] [address] [place] [address] Provider, MD Brii Social History [...] Upcoming Encounters Date Type Department Care Team ([facility] Contact Info) Description 02/17/2025 9:00 AM EST Office Visit [facility] [address] [phone] MD [address] [phone] documented as of this encounter Procedures Procedure Name Priority Date/Time Associated Diagnosis Comments EXT RESULT ENTRY Routine 07/02/2020 EXT RESULT ENTRY Routine 07/01/2020 EXT RESULT ENTRY Routine 06/30/2020 documented in this encounter Results * EXT RESULT ENTRY (07/02/2020) [facility] Provider MD LAB BLOOD ORDERABLES Dora l Result * EXT RESULT ENTRY (07/01/2020) [facility] Provider MD LAB BLOOD ORDERABLES Dora l Result * EXT RESULT ENTRY (06/30/2020) [facility] Provider MD LAB BLOOD ORDERABLES Dora l Result documented in this encounter Visit Diagnoses Not on filedocumented in this encounter Care Teams Hvac Controls Technician Relationship Specialty Start Date End Date Kimi Patino MD [address] [place] [id number] PCP - General 03/13/20 documented as of this encounter
--- OUTSIDE RECORDS SUMMARY | 2024-10-11 11:54 | XMS_ITS | Clinical Summary ---
Author Organization [address] [facility] Address [address] [place] [address] Phone Care Team Providers Care Sales And Management Trainee Name Role Phone Kimi Patino MD Primary Care Provider [phone] Allergies Active Allergy Reactions Criticality Noted Date Comments Aspirin Hives,Other 2020 Ciprofloxacin Nausea And Vomiting 02/19/2022 Fish Containing Products 01/21/2022 Penicillins Hives,Other 2020 Sulfamethoxazole Nausea And Vomiting 05/04/2023 Trimethoprim Nausea And Vomiting 05/04/2023 Medications No known medications Active Problems No known active problems Encounters Date Type Department Care Team Description 09/29/2024 10:30 AM EDT Office Visit Orthopedic [facility] [address] [phone] Ravindra Gan DPM Ingrowing nail (Primary Dx); Acquired hammer toe of right foot; Hammer toe of left foot; Diabetic mononeuropathy simplex (CMS/HCC V24, CMS/HCC V28); Dermatophytosis of nail; Type II diabetes mellitus with peripheral circulatory disorder (CMS/HCC V24, CMS/HCC V28); Pain in toe of right foot; Pain in toe of left foot 08/18/2024 1:15 PM EDT Office Visit [place] [address] [phone] Ravindra Gan DPM Cellulitis of left foot (Primary Dx); Ingrowing nail 08/13/2024 10:36 AM EDT - 08/13/2024 12:42 PM EDT Emergency [facility] [address] [place] [phone] Cellulitis of great toe of left foot (Primary Dx) Discharge Disposition: Home or Self Care from Last 3 Months Medical History Medical History Date Comments [place] [place] [facility] [place] Hypertension Stroke [place] [place] [facility] [place] CKD (chronic kidney disease) Arthritis Social [...] Care Team (Late st Contact Info) Description 01/03/2025 9:00 AM EST Office Visit Orthopedic Surgery [facility] [address] [phone] Ravindra Gan, DPM [address] [address] Health Maintenance Due Date Last Done Comments [...] Laterality Modality Lower Extremities, Toes [facility] 08/13/2024 11:3 1 AM EDT [...] Signed Date: 08/13/2024 11:32 ET Workstation ID: [id number] Transcribed By: Self Edit Transcribed Date: 08/13/2024 [...] the foot as well as osteopenia. There vlaente remote, healed fracture of the 5th metacarpal. Vascular calcifications. -------- FINAL REPORT -------- Dictated By: Carmen Canales Dictated Date: 08/13/2024 11:31 ET Assigned Physician: Carmen Canales Reviewed and Electronically Signed By: Carmen Canales Signed Date: 08/13/2024 11:32 ET Workstation ID: [id number] Transcribed By: Self Edit Transcribed Date: 08/13/2024 11:31 ET Teetee ALLAN IMG XR PROCEDURES Final Result * (ABNORMAL) CBC auto differential (08/13/2024 10:57 AM EDT) WBC 5.9 4.8 - 10.8 K/mcL LAB HEMETOLOGY METHOD 08/13/2024 11:44 AM [facility] RBC 3.10(L) 3.80 - 4.80 M/mcL LAB HEMETOLOGY METHOD 08/13/2024 11:44 AM [facility] Hemoglobin 9.3(L) 11.5 - 16.0 g/dL LAB HEMETOLOGY METHOD 08/13/2024 11:44 AM [facility] Hematocrit 29.3(L) 35.0 - 47.0 % LAB HEMETOLOGY METHOD 08/13/2024 11:44 AM [facility] MCV 95.8 79.0 - 98.0 FL LAB HEMETOLOGY METHOD 08/13[facility]24 11:[facility] MCH 30.4 27.0 - 32.0 pcg LAB HEMETOLOGY METHOD 08/13/2024 11:44 AM [facility] MCHC 31.7(L) 32.0 - 37.0 g/dL LAB HEMETOLOGY METHOD 08/13/2024 11:44 AM [facility] RDW 13.3 11.0 - 15.0 % LAB HEMETOLOGY METHOD 08/13/2024 11:44 AM [facility] Platelets 230 130 - 400 K/mcL LAB HEMETOLOGY METHOD 08/13/2024 11:44 AM [facility] MPV 10.4 7.0 - 11.0 FL LAB HEMETOLOGY METHOD 08/13/2024 11:44 AM [facility] NRBC 0.0 <1.0 % LAB HEMETOLOGY METHOD 08/13/2024 11:44 AM [facility] NRBC Absolute 0.00 <0.10 K/mcL LAB HEMETOLOGY METHOD 08/13/2024 11:44 AM [facility] Neutrophils Relative 70.5 % LAB HEMETOLOGY METHOD 08/13/2024 11:44 AM [facility] Lymphocytes Relative 18.2 % LAB HEMETOLOGY METHOD 08/13/2024 11:44 AM [facility] Monocytes Relative 8.3 % LAB HEMETOLOGY METHOD 08/13/2024 11:44 AM [facility] Eosinophils Relative 2.2 % LAB HEMETOLOGY METHOD 08/13/2024 11:44 AM [facility] Basophils Relative 0.5 % LAB HEMETOLOGY METHOD 08/13/2024 11:44 AM [facility] Immature Granulocytes Relative 0.3 % LAB HEMETOLOGY METHOD 08/13/2024 11:44 AM [facility] Neutrophils Absolute 4.13 1.50 - 7.00 K/mcL LAB HEMETOLOGY METHOD 08/13/2024 11:44 AM [facility] Lymphocytes Absolute 1.07 1.00 - 5.00 K/mcL LAB HEMETOLOGY METHOD 08/13/2024 11:44 AM [facility] Monocytes Absolute 0.49 0.20 - 1.00 K/mcL LAB HEMETOLOGY METHOD 08/13/2024 11:44 AM EDT [facility] Eosinophils Absolute 0.13 0.00 - 0.50 K/[facility] LAB HEMETOLOGY METHOD 08/13/2024 11:44 AM EDT [facility] Basophils Absolute 0.03 0.00 - 0.20 K/[facility] LAB HEMETOLOGY METHOD 08/13/2024 11:44 AM EDT [facility] Immature Granulocytes Absolute 0.02 0.00 - 0.03 K/[facility] LAB HEMETOLOGY METHOD 08/13/2024 11:44 AM T [facility] Blood Venous blood specimen / Unknown Venipuncture / Unknown 08/13/2024 10:57 AM EDT 08/13/2024 11:37 AM EDT us Teetee ALLAN LAB BLOOD ORDERABLES Final Res ult [facility] [address] [place] [address], * (ABNORMAL) Basic metabolic panel (08/13/2024 10:57 AM EDT) Sodium 137 133 - 145 mmol/L LAB CHEMISTRY METHOD 08/13/2024 12:13 PM [facility] Potassium 5.1 3.5 - 5.5 mmol/L LAB CHEMISTRY METHOD 08/13/2024 12:13 PM [facility] Comment:Hemolysis present Chloride 108 96 - 110 mmol/L LAB CHEMISTRY METHOD 08/13/2024 12:13 PM [facility] CO2 19(L) 21 - 32 mmol/L LAB CHEMISTRY METHOD 08/13/2024 12:13 PM [facility] Anion Gap 10 3 - 11 LAB CHEMISTRY METHOD 08/13/2024 12:13 PM [facility] Glucose 161(H) 70 - 100 mg/dL LAB CHEMISTRY METHOD 08/13/2024 12:13 PM EDT [facility] BUN 47(H) 5 - 25 mg/dL LAB CHEMISTRY METHOD 08/13/2024 12:13 PM EDT [facility] Creatinine 1.86(H) 0.50 - 1.10 mg/dL LAB CHEMISTRY METHOD 08/13/2024 12:13 PM EDT [facility] eGFR 28(L) >=60 mL/min/1. 73m2 LAB CHEMISTRY METHOD 08/13/2024 12:13 PM EDT [facility] Comment:Calculation based on the Chronic Kidney Disease Epidemiology Collaboration (CKD-EPI) equation refit without adjustment for race. BUN/Creatinine Ratio 25.3 LAB CHEMISTRY METHOD 08/13/2024 12:13 PM EDT [facility] Calcium 8.8 8.5 - 10.5 mg/dL LAB CHEMISTRY METHOD 08/13/2024 12:13 PM EDT [facility] Blood Venous blood specimen / Unknown Venipuncture / Unknown 08/13/2024 10:57 AM EDT 08/13/2024 11:37 AM EDT us Teetee ALLAN LAB BLOOD ORDERABLES Final Res ult [facility] [address] [place] [address], from Last 3 Months Insurance MEDICAID - [place] MEDICARE Care Teams Sales And Management Trainee Relationship Specialty Start Date End Date Kimi Patino MD [address] [place] [address] PCP - General 06/06/15
== END 2024-10-11 11:44 | disposition home or self-care (01) ==
LOC: HO.ENCR 11:11
PROVIDERS: PCP Internal Medicine; Visit Provider Physician Assistant
DX: E13.9 Other specified diabetes mellitus without complications (principal); E78.2 Mixed hyperlipidemia; I10 Essential (primary) hypertension

== ENCOUNTER → 2024-10-11 11:10 | Outpatient (BNVA) | payer MEDICARE, MEDICAID, SELFPAY | PROVIDERS: PCP Internal Medicine; Visit Provider Physician Assistant | DX: E13.9 Other specified diabetes mellitus without complications (principal); E78.2 Mixed hyperlipidemia; I10 Essential (primary) hypertension | CPT/HCPCS: 82947; 99212 ==

== ENCOUNTER 2024-11-02 08:59 | Outpatient (AMB) | payer MEDICARE, MEDICAID, SELFPAY ==
[2024-11-02 09:01] VITALS: BP 130/70; PULSE 75; TEMP 36.5; O2SAT 100; BMI 26.1
--- NOTE | 2024-11-02 09:01 | A.OFFPC_ITS ---
Vital Signs 11/02/24 09:01 Height 4 ft 10 in Weight 125 lb BMI 26.1 BP 130/70 Blood Pressure Location Lt brachial Position Sitting Pulse 75 Pulse Source Pulse Oximeter Temp 97.7 F Temp Source Oral Pulse Oximetry (%) 100 Oxygen Delivery Method Room Air Intake Visit Reasons: Losing weight Allergies aspirin (ASPIRIN) Allergy (Severe, Verified 11/02/24 09:02) Swelling, rash fish derived (FISH) Allergy (Mild, Verified 11/02/24 09:02) Rash, Swelling Penicillins (PENICILLINS) Allergy (Unknown, Verified 11/02/24 09:02) Swelling Medication List - Last Reconciled 11/02/24 by Kimi Patino MD acetaminophen 650 mg PO Q6H PRN ascorbate calcium (vitamin C) 500 mg PO DAILY 90 days atorvastatin 40 mg PO BEDTIME [Bedside commode As directed] blood sugar diagnostic (FreeStyle Lite Strips) As directed three times a day blood-glucose meter (FreeStyle Lite Meter kit) As directed 4x/day cholecalciferol (vitamin D3) 50 mcg PO DAILY 30 days clopidogrel 75 mg PO DAILY cyanocobalamin (vitamin B-12) (Vitamin B-12) 1,000 mcg PO DAILY furosemide 20 mg PO DAILY glucagon 3 mg/actuation 3 mg intranasal ONCE PRN insulin glargine (Basaglar KwikPen U-100 Insulin) 25 units (0.25 mL) subcut BEDTIME insulin lispro (Admelog SoloStar U-100 Insulin lispro) tid with meals 100-150 12 units 151-250 14 units over 250 16 units subcutaneously use as directed; MDD 48 units lancets As directed levothyroxine 88 mcg PO DAILY@0600 metoprolol succinate ER 25 mg PO BID pen needle, diabetic (BD Denisa 2nd Gen Pen Needle) USE DIRECTED FOUR TIMES DAILY [raised toilet seat with arms As directed] [Shower chair with arms As directed] sodium bicarbonate 650 mg PO BID [walker with seat and breaks As directed] Tobacco use date assessed: 08/17/24 Fall risk assessment: No Falls in past year Last assessed Fall Risk: 11/02/24 Dental Screening Dental Screen Date: 08/17/24 HPI Losing weight HPI Details Evaluation of unintentional weight loss and persistent heartburn. and chronic itching, also need atrovastatin refill due for LFT check, order placed History of Present Illness The patient is a 74-year-old female presenting with weight loss and heartburn. Weight loss: - Noted a decrease of 10 pounds since . - Previously weighed 135 pounds. - Current weight is 125 pounds, yielding a BMI of 26.1. - No reported decrease in appetite; cont inues to eat regularly. - Contributing factor possibly related t o appetite suppression due to heartburn. - Potentially beneficial if unintentiona l and within normal BMI range. Heartburn: - Previously managed with unspecified me dication - Medication discontinued due to pharmac y refill issues. - No current medication taken for heartb urn. - Described as causing significant disco mfort and potentially affecting dietary intake. Pruritus: - Chronic discomfort due to itchiness, p articularly notable on the back. - Previous dermatological evaluation att ributed pruritus possibly related to diabetes. - Pruritus present for an unspecified lo ng duration. - Not improved with topical applications currently used. - No indication of fungal involvement. - No corroborating symptoms in other [facility] members. Medication management: - Currently on multiple medications, inc luding atorvastatin, vitamin D, clopidogrel, B12, furosemide, insulin (25 units at bedtime and short-acting on a sliding scale), levothyroxine, and metoprolol. - Recent study suggests reconsidering th e use of metoprolol in females. - Follow-up with a spray painter who orig inally prescribed metoprolol. Medical History: - Hypercholesterolemia - Diabetes Mellitus - Chronic pruritus, possibly related to diabetes - Heartburn - Peripheral edema - Hypothyroidism Medications: - Atorvastatin (dose unspecified) for hy percholesterolemia - Vitamin D supplement (dose unspecified ) - Clopidogrel (dose unspecified) - Vitamin B12 supplement (dose unspecifi ed) - Furosemide (dose unspecified) for idania pheral edema - Insulin 25 units at bedtime and short- acting insulin on sliding scale for diabetes - Levothyroxine 88 mcg for hypothyroidis m - Metoprolol 25 mg (indication unspecifi ed, previously prescribed by spray painter) Social History: - Lives alone with no other household me mbers mentioned. - Experiences good memory and cognitive function despite age. Diagnostic Results: - Labs were completed in August, but anthony sterol was not checked. Problem List - Unintentional weight loss - Heartburn - Chronic pruritus - Hypercholesterolemia - Diabetes Mellitus - Hypothyroidism - Peripheral edema Patient Instructions - Continue eating nutritious meals. - Apply prescribed lotion mixed with nevin sturizer for pruritus. - Keep nails short to prevent skin damag e from itching. - Monitor for improvement with reinstate d heartburn medication. - Watch for any adverse reactions or wor sening symptoms. Review of Systems - General: No fever no chills - Neurological: No headaches - Ear nose throat: No sore throat no hearing difficulty no ear pain - Cardiovascular: No syncope, no chest pain, no palpitations - Gastrointestinal: No nausea vomiting or diarrhea Physical Exam General: No acute distress HEENT: No acute findings Neck: Supple Respiratory system: Able to talk in full sentences, no audible wheeze Cardiovascular: S1-S2 regular in rate and rhythm Gastrointestinal: Complains of bad heartburn Extremities: No new findings PATTERN CHECKER: Alert awake oriented x3 motor sensory intact Skin: Chronic itching on the upper part of the back, discolored skin due to chronic skin damage, no erythema PFSH Medical History CKD (chronic kidney disease) stage 3, GFR 30-59 ml/min Hyperchloremic metabolic acidosis Colonoscopy refused Abnormal SPEP Personal history of malignant neoplasm of uterus Subcutaneous mass T2DM (type 2 diabetes mellitus) Urinary retention with incomplete bladder emptying Osteoporosis Elevated liver enzymes Hypoglycemia Hyperparathyroidism Serum calcium elevated CKD stage 3 due to type 2 diabetes mellitus assisted (current) 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 Mother Pancreatic cancer Social History Household Members: Children Housing: House Do you presently have visiting nurse or other home services: No Alcohol intake: current Alcohol intake frequency: does not drink Patient Tobacco Use Status: Never used Tobacco e-Cigarette/Vaping Use: Never Used Second Hand Smoke Exposure: No Advance Directives Date on File: 02/04/20 service: No Current occupational status: unemployed Cognitive needs: No Hearing needs: No Vision needs: Yes Questionnaire Thrive Questionnaire Date Thrive assessed: 07/14/24 I am a: Patient What is your living situation today?: I have a steady place to live Within the past 12 months, did the food you bought not last and you didn't have the money to get more?: Never true Within the past 12 months, did you worry whether your food would run out before you got money to buy more?: Never true Do you have trouble paying for medicines?: No Do you have trouble getting transportation to medical appointments?: Yes Do you have trouble paying your heating and electricity bill?: No Do you have trouble taking care of your child, family member or friend?: I choose not to answer this question Do you have trouble with day-to-day activities such as bathing, preparing meals, shopping, managing finances, etc.?: Yes Are you currently unemployed and looking for a job?: No Are you interested in more education?: No Please select the resources that you would like help with: None Currently or been in a relationship where the following occur: No concerns reported THRIVE Score: 1 VINCENZO-7 AMB Questionnaire VINCENZO-7 Date VINCENZO - 7 assessed: 07/14/24 Source: Developed by Drs. Sae Nickerson, Tiffanie Andre, Giovani Chakraborty and colleagues, with an educational elsie from [employer]. Physical exam (Primary Care) Vital Signs: Last Vital Signs Temp 97.7 F 11/02/24 09:01 Pulse 75 11/02/24 09:01 BP 130/70 11/02/24 09:01 Pulse Ox 100 11/02/24 09:01 Oxygen Delivery Method Room Air 11/02/24 09:01 BMI result Body Mass Index 26.1 Tobacco/Smoking Status: Tobacco use Status Tobacco use date assessed 08/17/24 11/02/24 09:07 Patient Tobacco Use Status Never used Tobacco 11/02/24 09:07 e-Cigarette/Vaping Use Never Used 11/02/24 09:07 Thrive Assessment: Date of Thrive Assessment Date Thrive assessed 07/14/24 11/02/24 09:07 Currently or been in a relationship where the following occur: No concerns reported Coding Level of Care Code Est Pt Level 4 (01404) Complex EM visit Add On G2211 Diagnoses Weight loss R63.4 Gastroesophageal reflux disease without esophagitis K21.9 Esophagitis presence: without esophagitis Chronic pruritus L29.9 Primary hypertension I10 Hypertension type: primary hypertension Vitamin D deficiency E55.9 CKD stage 3 due to type 2 diabetes mellitus E11.22; N18.30 LFT elevation R79.89 Type 2 diabetes mellitus without complication, without long-term current 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 E11.9 Diabetes mellitus complication status: without complication Diabetes mellitus intermediate card tender insulin use: without intermediate card tender use Hx of detention use of blood thinners Z92.29 Lipid disorder E78.9 Time Spent (min) 30 Comment Complex patient, visit discussed with patient and daughter, review chart/labs Assessment & Plan Assessment & Plan (1) Weight loss: Code(s): R63.4 - Abnormal weight loss Category: Medical (2) GERD (gastroesophageal reflux disease): Code(s): K21.9 - Gastro-esophageal reflux disease without esophagitis Category: Medical Qualifiers: Esophagitis presence: without esophagitis Qualified Code(s): K21.9 - Gastro-esophageal reflux disease without esophagitis (3) Chronic pruritus: Code(s): L29.9 - Pruritus, unspecified Category: Medical (4) HTN (hypertension): Code(s): I10 - Essential (primary) hypertension Category: Medical Qualifiers: Hypertension type: primary hypertension Qualified Code(s): I10 - Essential (primary) hypertension (5) Vitamin D deficiency: Code(s): E55.9 - Vitamin D deficiency, unspecified Category: Medical (6) CKD stage 3 due to type 2 diabetes mellitus: Code(s): E11.22 - Type 2 diabetes mellitus with diabetic chronic kidney disease; N18.30 - Chronic kidney disease, stage 3 unspecified Category: Medical (7) LFT elevation: Code(s): R79.89 - Other specified abnormal findings of blood chemistry Category: Medical (8) T2DM (type 2 diabetes mellitus): Code(s): E11.9 - Type 2 diabetes mellitus without complications Category: Medical Qualifiers: Diabetes mellitus complication status: without complication Diabetes mellitus detention insulin use: without intermediate card tender use Qualified Code(s): E11.9 - Type 2 diabetes mellitus without complications (9) Hx of detention use of blood thinners: Code(s): Z92.29 - Personal history of other drug therapy Category: Medical (10) Lipid disorder: Code(s): E78.9 - Disorder of lipoprotein metabolism, unspecified Category: Medical Plan Evaluation of unintentional weight loss and persistent heartburn. and chronic itching, also need atrovastatin refill due for LFT check, order placed History of Present Illness The patient is a 74-year-old female presenting with weight loss and heartburn. Has a history of diabetes mellitus, long talk blood thinners secondary to history of stroke history of chronic kidney disease stage 3 secondary to diabetes, vitamin-D deficiency hypertension, Weight loss: - Noted a decrease of 10 pounds since 2021. - Previously weighed 135 pounds. - Current weight is 125 pounds, yielding a BMI of 26.1. - No reported decrease in appetite; continues to eat regularly. - Contributing factor possibly related to appetite suppression due to heartburn. - Potentially beneficial if unintentional and within normal BMI range. Heartburn: - Previously managed with unspecified medication - Medication discontinued due to pharmacy refill issues. - No current medication taken for heartburn. - Described as causing significant discomfort and potentially affecting dietary intake. Pruritus: - Chronic discomfort due to itchiness, particularly notable on the back. - Previous dermatological evaluation attributed pruritus possibly related to diabetes. - Pruritus present for an unspecified long duration. - Not improved with topical applications currently used. - No indication of fungal involvement. - No corroborating symptoms in other household members. Medication management: - Currently on multiple medications, including atorvastatin, vitamin D, clopidogrel, B12, furosemide, insulin (25 units at bedtime and short-acting on a sliding scale), levothyroxine, and metoprolol. - Recent study suggests reconsidering the use of metoprolol in females. - Follow-up with a spray painter who originally prescribed metoprolol. Medical History: - Hypercholesterolemia - Diabetes Mellitus - Chronic pruritus, possibly related to diabetes - Heartburn - Peripheral edema - Hypothyroidism Medications: - Atorvastatin (dose unspecified) for hypercholesterolemia - Vitamin D supplement (dose unspecified) - Clopidogrel (dose unspecified) - Vitamin B12 supplement (dose unspecified) - Furosemide (dose unspecified) for peripheral edema - Insulin 25 units at bedtime and short-acting insulin on sliding scale for diabetes - Levothyroxine 88 mcg for hypothyroidism - Metoprolol 25 mg (indication unspecified, previously prescribed by spray painter) Social History: - Lives alone with no other household members mentioned. - Experiences good memory and cognitive function despite age. Diagnostic Results: - Labs were completed in August, but cholesterol was not checked. Problem List - Unintentional weight loss - Heartburn - Chronic pruritus - Hypercholesterolemia - Diabetes Mellitus - Hypothyroidism - Peripheral edema Patient Instructions - Continue eating nutritious meals. - Apply prescribed lotion mixed with moisturizer for pruritus. - Keep nails short to prevent skin damage from itching. - Monitor for improvement with reinstated heartburn medication. - Watch for any adverse reactions or worsening symptoms. Orders: Orders LDL Cholesterol Direct Today E11.22 - Type 2 diabetes mellitus with diabetic chronic kidney disease, E11.9 - Type 2 diabetes mellitus without complications, E55.9 - Vitamin D deficiency, unspecified, E78.9 - Disorder of lipoprotein metabolism, unspecified, I10 - Essential (primary) hypertension, K21.9 - Gastro- esophageal reflux disease without esophagitis, L29.9 - Pruritus, unspecified, N18.30 - Chronic kidney disease, stage 3 unspecified, R63.4 - Abnormal weight loss, R79.89 - Other specified abnormal findings of blood chemistry, Z92.29 - Personal history of other drug therapy Vitamin D 25-OH (D2 and D3) Today E11.22 - Type 2 diabetes mellitus with diabetic chronic kidney disease, E11.9 - Type 2 diabetes mellitus without complications, E55.9 - Vitamin D deficiency, unspecified, E78.9 - Disorder of lipoprotein metabolism, unspecified, I10 - Essential (primary) hypertension, K21.9 - Gastro-esophageal reflux disease without esophagitis, L29.9 - Pruritus, unspecified, N18.30 - Chronic kidney disease, stage 3 unspecified, R63.4 - Abnormal weight loss, R79.89 - Other specified abnormal findings of blood chemistry, Z92.29 - Personal history of other drug therapy Complete Blood Count Auto Diff Today E11.22 - Type 2 diabetes mellitus with diabetic chronic kidney disease, E11.9 - Type 2 diabetes mellitus without complications, E55.9 - Vitamin D deficiency, unspecified, E78.9 - Disorder of lipoprotein metabolism, unspecified, I10 - Essential (primary) hypertension, K21.9 - Gastro-esophageal reflux disease without esophagitis, L29.9 - Pruritus, unspecified, N18.30 - Chronic kidney disease, stage 3 unspecified, R63.4 - Abnormal weight loss, R79.89 - Other specified abnormal findings of blood chemistry, Z92.29 - Personal history of other drug therapy Comprehensive Met. Panel Today E11.22 - Type 2 diabetes mellitus with diabetic chronic kidney disease, E11.9 - Type 2 diabetes mellitus without complications, E55.9 - Vitamin D deficiency, unspecified, E78.9 - Disorder of lipoprotein metabolism, unspecified, I10 - Essential (primary) hypertension, K21.9 - Gastro- esophageal reflux disease without esophagitis, L29.9 - Pruritus, unspecified, N18.30 - Chronic kidney disease, stage 3 unspecified, R63.4 - Abnormal weight loss, R79.89 - Other specified abnormal findings of blood chemistry, Z92.29 - Personal history of other drug therapy TSH reflex Free T4 Today E11.22 - Type 2 diabetes mellitus with diabetic chronic kidney disease, E11.9 - Type 2 diabetes mellitus without complications, E55.9 - Vitamin D deficiency, unspecified, E78.9 - Disorder of lipoprotein metabolism, unspecified, I10 - Essential (primary) hypertension, K21.9 - Gastro- esophageal reflux disease without esophagitis, L29.9 - Pruritus, unspecified, N18.30 - Chronic kidney disease, stage 3 unspecified, R63.4 - Abnormal weight loss, R79.89 - Other specified abnormal findings of blood chemistry, Z92.29 - Personal history of other drug therapy Medications: New atorvastatin 40 mg PO BEDTIME 90 tabs 0RF triamcinolone acetonide 0.1% 1 appl topical DAILY 60 mL 2RF 30 days Refilled lansoprazole 30 mg PO DAILY 90 caps 1RF K21.9 - Gastro-esophageal reflux disease without esophagitis
--- OUTSIDE RECORDS SUMMARY | 2024-11-02 09:49 | XMS_ITS | Clinical Summary ---
Author Organization 175 [facility] Address [address] [place] [address] Phone Care Team Providers Care Manager Trainee Name Role Phone Kimi Patino MD Primary Care Provider [phone] Allergies Active Allergy Reactions Criticality Noted Date Comments Aspirin Hives,Other 2020 Ciprofloxacin Nausea And Vomiting 02/19/2022 Fish Containing Products 01/21/2022 Penicillins Hives,Other 2020 Sulfamethoxazole Nausea And Vomiting 05/04/2023 Trimethoprim Nausea And Vomiting 05/04/2023 Medications No known medications Active Problems No known active problems Encounters Date Type Department Care Team Description 09/29/2024 10:30 AM EDT Office Visit [facility] [address] [phone] Ravindra Gan DPM Ingrowing nail (Primary Dx); Acquired hammer toe of right foot; Hammer toe of left foot; Diabetic mononeuropathy simplex (CMS/HCC V24, CMS/HCC V28); Dermatophytosis of nail; Type II diabetes mellitus with peripheral circulatory disorder (CMS/HCC V24, CMS/HCC V28); Pain in toe of right foot; Pain in toe of left foot 08/18/2024 1:15 PM EDT Office Visit [place] [address] [phone] Ravindra Gan DPM Cellulitis of left foot (Primary Dx); Ingrowing nail 08/13/2024 10:36 AM EDT - 08/13/2024 12:42 PM EDT Emergency [facility] Emergency [address] [place] [phone] Cellulitis of great toe of left foot (Primary Dx) Discharge Disposition: Home or Self Care from Last 3 Months Medical History Medical History Date Comments Diabetes mellitus [place] [place], [facility] [place]28) Hypertension Stroke ([facility] [place]24, [facility] V28) CKD (chronic kidney disease) Arthritis Social [...] 9:00 AM EST Office Visit [facility] [place] [address] [phone] Ravindra Gan, DPAngela [address] [phone] Health Maintenance Due Date Last Done Comments [...] Laterality Modality Lower Extremities, Toes [facility] 08/13/2024 11:3 1 AM EDT Impressions [...] Signed Date: 08/13/2024 11:32 ET Workstation ID: [id number] Transcribed By: Self Edit Transcribed Date: 08/13/2024 [...] Signed Date: 08/13/2024 11:32 ET Workstation ID: [id number] Transcribed By: Self Edit Transcribed Date: 08/13/2024 11:31 ET Teet[facility] IMG XR PROCEDURES Final Result * (ABNORMAL) CBC auto differential (08/13/2024 10:57 AM EDT) WBC 5.9 4.8 - 10.8 K/mcL LAB HEMETOLOGY METHOD 08/13/2024 11:44 AM [facility] RBC 3.10(L) 3.80 - 4.80 M/mcL LAB HEMETOLOGY METHOD 08/13/2024 11:44 AM [facility] Hemoglobin 9.3(L) 11.5 - 16.0 g/dL LAB HEMETOLOGY METHOD 08/13/2024 11:44 AM [facility] Hematocrit 29.3(L) 35.0 - 47.0 % LAB HEMETOLOGY METHOD 08/13/2024 11:44 AM [facility] MCV 95.8 79.0 - 98.0 FL LAB HEMETOLOGY METHOD 08/13/2024 11:44 AM [facility] MCH 30.4 27.0 - 32.0 pcg LAB HEMETOLOGY METHOD 08/13/2024 11:44 AM [facility] MCHC 31.7(L) 32.0 - 37.0 g/dL LAB HEMETOLOGY METHOD 08/13/2024 11:44 AM [facility] RDW 13.3 11.0 - 15.0 % LAB HEMETOLOGY METHOD 08/13/2024 11:44 AM [facility] Platelets 230 130 - 400 K/mcL LAB HEMETOLOGY METHOD 08/13/2024 11:44 AM [facility] MPV 10.4 7.0 - 11.0 FL LAB HEMETOLOGY METHOD 08/13/2024 11:44 AM [facility] NRBC 0.0 <1.0 % LAB HEMETOLOGY METHOD 08/13/2024 11:44 AM [facility] NRBC Absolute 0.00 <0.10 K/mcL LAB HEMETOLOGY METHOD 08/13/2024 11:44 AM [facility] Neutrophils Relative 70.5 % LAB HEMETOLOGY METHOD 08/13/2024 11:44 AM [facility] Lymphocytes Relative 18.2 % LAB HEMETOLOGY METHOD 08/13/2024 11:44 AM [facility] Monocytes Relative 8.3 % LAB HEMETOLOGY METHOD 08/13/2024 11:44 AM [facility] Eosinophils Relative 2.2 % LAB HEMETOLOGY METHOD 08/13/2024 11:44 AM [facility] Basophils Relative 0.5 % LAB HEMETOLOGY METHOD 08/13/2024 11:44 AM [facility] Immature Granulocytes Relative 0.3 % LAB HEMETOLOGY METHOD 08/13/2024 11:44 AM [facility] Neutrophils Absolute 4.13 1.50 - 7.00 K/mcL LAB HEMETOLOGY METHOD 08/13/2024 11:44 AM [facility] Lymphocytes Absolute 1.07 1.00 - 5.00 K/mcL LAB HEMETOLOGY METHOD 08/13/2024 11:44 AM [facility] Monocytes Absolute 0.49 0.20 - 1.00 K/mcL LAB HEMETOLOGY METHOD 08/13/2024 11:[address] [facility] Eosinophils Absolute 0.13 0.00 - 0.50 K/[facility] LAB HEMETOLOGY METHOD 08/13/2024 11:[address] [facility] Basophils Absolute 0.03 0.00 - 0.20 K/[facility] LAB HEMETOLOGY METHOD 08/13/2024 11:[address] [facility] Immature Granulocytes Absolute 0.02 0.00 - 0.03 K/[facility] LAB HEMETOLOGY METHOD 08/13/2024 11:[address] [facility] Blood Venous blood specimen / Unknown Venipuncture / Unknown 08/13/2024 10:57 AM EDT 08/13/2024 11:37 AM EDT us Teet[facility] LAB BLOOD ORDERABLES Final Res ult [facility] [address] [place] [address], * (ABNORMAL) Basic metabolic panel (08/13/2024 10:57 AM EDT) Sodium 137 133 - 145 mmol/L LAB CHEMISTRY METHOD 08/13/2024 12:13 PM [facility] Potassium 5.1 3.5 - 5.5 mmol/L LAB CHEMISTRY METHOD 08/13/2024 12:13 PM [facility] Comment:Hemolysis present Chloride 108 96 - 110 mmol/L LAB CHEMISTRY METHOD 08/13/2024 12:13 PM [facility] CO2 19(L) 21 - 32 mmol/L LAB CHEMISTRY METHOD 08/13/2024 12:13 PM [facility] Anion Gap 10 3 - 11 LAB CHEMISTRY METHOD 08/13/2024 12:13 PM [facility] Glucose 161(H) 70 - 100 mg/dL LAB CHEMISTRY METHOD 08/13/2024 12:[address] [facility] BUN 47(H) 5 - 25 mg/dL LAB CHEMISTRY METHOD 08/13/2024 12:[address] [facility] Creatinine 1.86(H) 0.50 - 1.10 mg/dL LAB CHEMISTRY METHOD 08/13/2024 12:[address] [facility] eGFR 28(L) >=60 mL/min/1. 73m2 LAB CHEMISTRY METHOD 08/13/2024 12:[address] [facility] Comment:Calculation based on the Chronic Kidney Disease Epidemiology Collaboration (CKD-EPI) equation refit without adjustment for race. BUN/Creatinine Ratio 25.3 LAB CHEMISTRY METHOD 08/13/2024 12:[address] [facility] Calcium 8.8 8.5 - 10.5 mg/dL LAB CHEMISTRY METHOD 08/13/2024 12:[address] [facility] Blood Venous blood specimen / Unknown Venipuncture / Unknown 08/13/2024 10:57 AM EDT 08/13/2024 11:37 AM EDT Te[facility] LAB BLOOD ORDERABLES Final Res ult [facility] [address] [place] [address], from Last 3 Months Insurance MEDICAID - [place] MEDICARE Care Teams Manager Trainee Relationship Specialty Start Date End Date Kimi Patino MD [address] [place] [address] PCP - General 06/06/15
--- OUTSIDE RECORDS SUMMARY | 2024-11-02 09:49 | XMS_ITS | Clinical Summary ---
Author Organization [facility] Address [address] [phone] Phone Care Team Providers Care Retail Specialist Name Role Phone Kimi Patino MD Primary Care Provider [phone] Allergies Active Allergy Reactions Criticality Noted Date [...] 25 2018 12:00AM Duration: 50 12/10/2017 Active cyanocobalamin (VITAMIN B-12) 1000 MCG tablet [...] USE DIRECTED THREE TIMES DAILY 10/16/2020 Active levothyroxine (SYNTHROID, LEVOTHROID) 125 MCG tablet Take 125 mcg by mouth 1 (one) time each day 12/20/2020 Active Ascorbic Acid (vitamin C) 250 MG tablet Take 500 mg by mouth 1 (one) time each day Active metoprolol succinate XL (TOPROL XL) 25 MG 24 hr tablet TAKE 1 TABLET BY MOUTH TWICE DAILY 180 tablet 3 05/28/2022 Active furosemide (LASIX) 20 MG tablet TAKE 1 TABLET BY MOUTH EVERY DAY 90 tablet 3 07/21/2022 Active Active Problems Problem Noted Date Diagnosed [...] Encounters Date Type Department Care Team Description 08/23/2024 10:40 AM EDT [facility] [address] [phone] MD Stage 3b chronic kidney disease (HCC) (Primary Dx); Hyperkalemia; Hypertension; Hypertensive renal disease; Hyponatremia; Left hemiparesis <Left side; Non-dominant side> (HCC); Empty sella syndrome (HCC); Type 2 diabetes mellitus with complication, not otherwise specified (HCC); Cerebrovascular accident (HCC) 08/23/2024 Orders Only [facility] [address] [phone] Kimi Patino MD from Last 3 Months Immunizations Immunization Administration [...] Sign Reading Time Taken Comments Blood Pressure 122/74 08/23/2024 10:53 AM EDT Pulse 71 08/23/2024 10:53 AM EDT Temperature - - Respiratory Rate - - Oxygen Saturation 99% 08/23/2024 10:53 AM EDT Inhaled Oxygen Concentration - - Weight 58.5 kg (129 lb) 08/23/2024 10:53 AM EDT Height 147.3 cm (4' 10 ) 12/30/2023 9:49 AM EDT Body Mass Index 26.96 12/30/2023 9:49 AM EDT Plan of Treatment Upcoming Encounters Date Type Department Care Team (Late st Contact Info) Description 02/17/2025 9:00 AM EST [facility] [address] [phone] MD [address] [phone] Health Maintenance Due Date Last Done Comments [...] Diabetes: Visual Foot Exam 04/02/2020 Influenza Vaccine (#1) 2024 11/20/2016 Pneumococcal Vaccine: Peds ( 0 to 5 Years) and At-Risk Patients (6 to 49 Years) Discontinued 10/12/2013, 07/06/2009 Hepatitis B Vaccine Aged Out No longe r eligible based on patient's age to complete this topic Insurance Medicare Medicaid [place] Medicaid [place] Medicare Care Teams Retail Specialist Relationship Specialty Start Date End Date Kimi Patino MD [address] [place] [id number] PCP - General 03/13/20
--- OUTSIDE RECORDS SUMMARY | 2024-11-02 09:49 | XMS_ITS | Encounter Summary ---
Author Organization [facility] Address [address] [facility] [address] [place] [address] Phone Care Team Providers Care Process Design Engineer Name Role Phone Kimi Patino MD Primary Care Provider [phone] Encounter Details Date Type Department Care Team ([facility] Contact Info) Description 07/05/2020 Orders Only [facility] [address] [facility] [address] [place] [address] Provider, MD Brii Social History [...] Upcoming Encounters Date Type Department Care Team ([facility] Contact Info) Description 02/17/2025 9:00 AM EST Office Visit [facility] [address] [phone] MD [address] [phone] documented as of this encounter Procedures Procedure Name Priority Date/Time Associated Diagnosis Comments EXT RESULT ENTRY Routine 07/02/2020 EXT RESULT ENTRY Routine 07/01/2020 EXT RESULT ENTRY Routine 06/30/2020 documented in this encounter Results * EXT RESULT ENTRY (07/02/2020) [facility] Provider MD LAB BLOOD ORDERABLES Dora l Result * EXT RESULT ENTRY (07/01/2020) [facility] Provider MD LAB BLOOD ORDERABLES Dora l Result * EXT RESULT ENTRY (06/30/2020) [facility] Provider MD LAB BLOOD ORDERABLES Dora l Result documented in this encounter Visit Diagnoses Not on filedocumented in this encounter Care Teams Process Design Engineer Relationship Specialty Start Date End Date Kimi Patino MD [address] [place] [phone] PCP - General 03/13/20 documented as of this encounter
== END 2024-11-02 09:58 | disposition home or self-care (01) ==
LOC: HO.HMCC 09:00
PROVIDERS: PCP Internal Medicine; Visit Provider Internal Medicine
DX: R63.4 Abnormal weight loss (principal); K21.9 Gastro-esophageal reflux disease without esophagitis; L29.9 Pruritus, unspecified; I10 Essential (primary) hypertension; E55.9 Vitamin D deficiency, unspecified; E11.22 Type 2 diabetes mellitus with diabetic chronic kidney disease; N18.30 Chronic kidney disease, stage 3 unspecified; R79.89 Other specified abnormal findings of blood chemistry; Z92.29 Personal history of other drug therapy; E78.9 Disorder of lipoprotein metabolism, unspecified

== ENCOUNTER → 2024-11-02 08:59 | Outpatient (BNVA) | payer MEDICARE, MEDICAID, SELFPAY | PROVIDERS: PCP Internal Medicine; Visit Provider Internal Medicine | DX: R63.4 Abnormal weight loss (principal); R51.9 Headache, unspecified; L29.9 Pruritus, unspecified; K21.9 Gastro-esophageal reflux disease without esophagitis; E55.9 Vitamin D deficiency, unspecified; I12.9 Hypertensive chronic kidney disease with stage 1 through stage 4 chronic kidney disease, or unspecified chronic kidney disease; E11.22 Type 2 diabetes mellitus with diabetic chronic kidney disease; N18.30 Chronic kidney disease, stage 3 unspecified; E78.9 Disorder of lipoprotein metabolism, unspecified; Z92.29 Personal history of other drug therapy; Z79.899 Other long term (current) drug therapy | CPT/HCPCS: 99212 ==

== ENCOUNTER 2024-11-08 14:57 | Outpatient (AMB) | payer MEDICARE, MEDICAID, SELFPAY ==
--- NOTE | 2024-11-08 15:09 | MHC.OFFVIS ---
Intake Visit Reasons: follow up discuss sgy Intake Note: Patient is present for DISCUSS SGY Urology Medication: NONE Antibiotic Allergy:PENICILLINS Blood Thinner:NONE Mold Checker Required: No Allergies aspirin (ASPIRIN) Allergy (Severe, Verified 11/08/24 21:44) Swelling, rash fish derived (FISH) Allergy (Mild, Verified 11/08/24 21:44) Rash, Swelling Penicillins (PENICILLINS) Allergy (Unknown, Verified 11/08/24 21:44) Swelling Medication List - Last Reconciled 11/08/24 by BRANDON Daniel acetaminophen 650 mg PO Q6H PRN ascorbate calcium (vitamin C) 500 mg PO DAILY 90 days atorvastatin 40 mg PO BEDTIME [Bedside commode As directed] blood sugar diagnostic (FreeStyle Lite Strips) As directed three times a day blood-glucose meter (FreeStyle Lite Meter kit) As directed 4x/day cholecalciferol (vitamin D3) 50 mcg PO DAILY 30 days clopidogrel 75 mg PO DAILY cyanocobalamin (vitamin B-12) (Vitamin B-12) 1,000 mcg PO DAILY furosemide 20 mg PO DAILY insulin glargine (Basaglar KwikPen U-100 Insulin) 25 units (0.25 mL) subcut BEDTIME insulin lispro (Admelog SoloStar U-100 Insulin lispro) tid with meals 100-150 12 units 151-250 14 units over 250 16 units subcutaneously use as directed; MDD 48 units lancets As directed lansoprazole 30 mg PO DAILY levothyroxine 88 mcg PO DAILY@0600 metoprolol succinate ER 25 mg PO BID pen needle, diabetic (BD Denisa 2nd Gen Pen Needle) USE DIRECTED FOUR TIMES DAILY [raised toilet seat with arms As directed] [Shower chair with arms As directed] triamcinolone acetonide 0.1% 1 appl topical DAILY 30 days [walker with seat and breaks As directed] HPI Comments Details: Jacqueline is a pleasant 74 year old Zimbabwean speaking patient who is accompanied by her daughter Kristy at todays visit who is a patient of Dr. Patino. She has a past medical history of bacteremia, CKD stage 3, CVA with left-sided weakness, DM Type II, diabetic neuropathy, elevated liver enzymes, hypertension, hyperlipidemia, iron deficiency anemia, osteoporosis, and vitamin-D deficiency. She presents to the office today for a follow up of her neurogenic bladder, incomplete bladder emptying, recurrent urinary tract infections, and bilateral hydronephrosis. In discussion with the patient and her daughter today she reports having followed up with Nephrology and discussing worsening renal function and she feels she would like to proceed with suprapubic tube placement. Patient's daughter also reports noting foul-smelling urine over the last 3-5 days. In office urinalysis results reviewed with the patient today 3+ leukocytes negative nitrates. We discussed at length potential causes of recurrent urinary tract infections as well as patient's longstanding history of a neurogenic bladder with incomplete bladder emptying. Previously patient had been catheterizing twice a day to assist with incomplete bladder emptying however she refuses and does not wish to continue clean intermittent catheterization for incomplete bladder emptying. We had previously discussed during multiple office visits further treatment options however she did not wish to proceed. We also discussed potential delay in treatment. Patient with a history of cystoscopy, cystogram, and urethral dilation with Dr. Mcintyre on 11/12/22 for her recurrent urinary tract infections, bilateral hydronephrosis, and neurogenic bladder. Postop diagnosis noted vesicoureteral reflux bilateral grade 4 and urethral narrowing. The bladder wall appeared fibrinous with mild erythema. There were no suspicious bladder lesions seen. When contrast was mixed and placed under gravitiy there was noted to be bilateral reflux into both ureters up into the kidneys, noting significant dilation of the ureters and renal pelves. After draining the contrast there was drainage and decompression of bilateral ureters noted. Patient also with a longstanding history of recurrent urinary tract infections: Urine culture: 06/25 Staphylococcus aureus, 08/25 Klebsiella pneumoniae, 09/24 serratia marcescens We discussed further treatment options of recurrent urinary tract infections to include trial of Estrace cream verses Vagifem however patient declines at this time. She does not feel any intervention is necessary. When asked she currently denies urinary urgency, urinary frequency, nocturia, hematuria, dysuria, changes to urinary stream, flank pain, fever, and or chills. She does report urinary incontinence at times. BUN and creatinine results reviewed with the daughter and patient today. BUN: 11/23 45, 11/23 44, 06/23 35, 04/25 36, 04/02 33, 03/25 26, 01/22 34, 11/22 31, 05/22 39, 05/22 40, 03/26 37, 06/24 35, 11/24 44, 01/24 45, 07/25 50, 07/25 48, 08/25 44, 08/25 45, 08/25 42 Creatinine: 11/23 1.30, 11/23 1.35, 06/23 1.56, 04/25 1.41, 03/25 1.49, 03/25 1.35, 01/22 1.72, 01/22 1.58, 11/22 1.39, 05/22 1.82, 05/22 1.97, 03/26 1.40, 06/24 1.88, 11/24 2.25, 01/24 1.61, 07/25 2.01, 08/25 1.95, 08/25 1.94, 08/25 1.65 [facility] Medical History CKD (chronic kidney disease) stage 3, GFR 30-59 ml/min Hyperchloremic metabolic acidosis Colonoscopy refused Abnormal SPEP Personal history of malignant neoplasm of uterus Subcutaneous mass T2DM (type 2 diabetes mellitus) Urinary retention with incomplete bladder emptying Osteoporosis Elevated liver enzymes Hypoglycemia Hyperparathyroidism Serum calcium elevated CKD stage 3 due to type 2 diabetes mellitus 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 Mother Pancreatic cancer Social History Household Members: Children Housing: House Do you presently have visiting nurse or other home services: No Alcohol intake: current Alcohol intake frequency: does not drink Patient Tobacco Use Status: Never used Tobacco e-Cigarette/Vaping Use: Never Used Second Hand Smoke Exposure: No Advance Directives Date on File: 02/04/20 service: No Current occupational status: unemployed Cognitive needs: No Hearing needs: No Vision needs: Yes Review of Systems Const Reports as per [facility] Eyes Reports no additional complaints ENT Reports no additional complaints Card Reports as per [facility] Resp Reports no additional complaints GI Reports as per [facility] Reports as per [facility] Musc Reports as per [facility] Neuro Reports as per [facility] Endo Details: patient reports she is diabetic Reports as per [facility] Stewart/Lymph Reports no additional complaints Aller/Immun Reports no additional complaints Physical Exam Const General: cooperative, healthy appearing, comfortable, no acute distress, well developed, alert and awake Orientation/consciousness: patient oriented x3 Limitations: language barrier and ambulation with walker HEENT Head: Yes normal to inspection, Yes normocephalic and Yes atraumatic Ears: hearing grossly normal bilaterally Eyes General: appearance normal, both eyes and all related structures Neck Neck: Yes normal visual inspection and Yes trachea midline Chest Chest palpation & inspection: normal inspection of the chest Resp Effort & Inspection: normal respiratory effort and able to speak in complete sentences Cardio Rate: regular rate GI Inspection: Yes normal to inspection General: Yes no CVA tenderness Back/Spine/Pelvis Back: no CVA tenderness Skin General skin exam: no rashes or lesions noted Neuro General: patient oriented x3 Extrem General: Yes normal to inspection Psych Appearance: grossly normal and well kempt Mental Status: mental status grossly normal Speech and movement: Normal speech and movement present and Clear speech present Affect: normal affect Attitude: cooperative Thought process: Normal thought process present Thought content: Normal thought content present Insight: Fair insight present (Psych) Judgement: Fair judgement present (Psych) Results AMB Urinalysis, Automated UA Leukoctes 500 Antony/uL Last Edit by ELI Kelly on 11/08/24 16:20 UA Nitrite Negative Last Edit by ELI Kelly on 11/08/24 16:20 UA Urobilinogen 0.2 mg/dL Last Edit by ELI Kelly on 11/08/24 16:20 UA Protein 15 mg/dL Last Edit by ELI Kelly on 11/08/24 16:20 UA pH 6.0 Last Edit by ELI Kelly on 11/08/24 16:20 UA Blood 25 Ian/uL Last Edit by ELI Kelly on 11/08/24 16:20 UA Specific [place] 1.015 Last Edit by ELI Kelly on 11/08/24 16:20 UA Ketone Negative Last Edit by ELI Kelly on 11/08/24 16:20 UA Bilirubin 0 mg/dL Last Edit by ELI Kelly on 11/08/24 16:20 UA Glucose 250 mg/dL Last Edit by ELI Kelly on 11/08/24 16:20 Results Reviewed Results Reviewed: Laboratory Last Values Urine pH (Auto) 6.0 11/08/24 16:16 Specific [place] (Auto) 1.015 11/08/24 16:16 Urine Protein (Auto) 15 mg/dL 11/08/24 16:16 Glucose (UA)(Auto) 250 mg/dL 11/08/24 16:16 Urine Ketones (Auto) Negative 11/08/24 16:16 Urine Blood (Auto) 25 Ian/uL 11/08/24 16:16 Urine Nitrite (Auto) Negative 11/08/24 16:16 Urine Bilirubin (Auto) 0 mg/dL 11/08/24 16:16 Urine Urobilinogen (Auto) 0.2 mg/dL 11/08/24 16:16 Leukocyte Esterase (Auto) 500 Antony/uL 11/08/24 16:16 Assessment & Plan Assessment & Plan (1) Recurrent UTI: Code(s): N39.0 - Urinary tract infection, site not specified Category: Medical (2) Neurogenic bladder: Code(s): N31.9 - Neuromuscular dysfunction of bladder, unspecified Category: Medical (3) Urinary retention with incomplete bladder emptying: Code(s): R33.9 - Retention of urine, unspecified Category: Medical (4) Hydronephrosis: Code(s): N13.30 - Unspecified hydronephrosis Category: Medical (5) Reflux, vesicoureteral: Code(s): N13.70 - Vesicoureteral-reflux, unspecified Category: Medical Plan: Risks, benefits and alternatives to therapy were discussed. These include but are not limited to infection, bleeding, damage to local organs and tissues, need for further interventions. ? Anesthetic risks regarding cardiac arrhythmia, blood clots, and potential mortality were discussed. The patient understands the typical recovery time and the outpatient nature of the procedure. After consideration of these risks the patient gives full informed consent and they wish to move ahead with the procedure. Plan In office urinalysis results reviewed with the patient today; as noted above; will send for urine culture; will await results for potential treatment. We discussed further treatment options of recurrent urinary tract infections to include trial Estrace cream verses Vagifem verses methenamine and vitamin-C for suppression We discussed further treatment options of incomplete bladder emptying and neurogenic bladder; risks and benefits of these interventions were discussed Discussed importance of managing diabetes for improvement lower urinary tract symptoms as well as overall health and well-being. Discussed UTI prevention with D mannose supplement, vitamin-C, increasing fluid intake, behavioral therapy with timed voiding, perineal hygiene and postcoital voiding, and management of constipation with stool softeners and increased fiber intake. We discussed suprapubic tube placement; risks and benefits. All questions were answered. Will schedule for cystoscopy with suprapubic tube placement with Dr. Zapata as requested. Follow-up per doctor's orders; or sooner with any issues, concerns, and or questions. Orders: Orders AMB Urinalysis Automated Today Z13.9 - Encounter for screening, unspecified Urine Culture Today N39.0 - Urinary tract infection, site not specified Patient Instructions: The patient had an opportunity to ask questions regarding the treatment plan. All questions were answered. Physical exam, labs, and imaging were discussed and reviewed in detail. As well as risks, benefits, and discussion of treatment choices. No major barriers to understanding were identified. The patient expressed understanding and agreement with the above treatment plan. The patient was made aware they should contact our office by phone for worsening of their current condition, the appearance of new symptoms, or with any questions or concerns. Compliance is encouraged with any medications and follow up testing that is ordered. It is a privilege to be allowed the opportunity to participate in? your urological care.? Again, if you have any questions or concerns If you have any questions or concerns please do not hesitate to contact me. The office is [phone]. This note is constructed using voice recognition software. While every effort has been made to ensure accuracy information technology teacher errors may have been included. Yours sincerely, BRANDON Daniel Coding Level of Care Code Est Pt Level 4 (66447) Complex EM visit Add On G2211 Diagnoses Recurrent UTI N39.0 Neurogenic bladder N31.9 Urinary retention with incomplete bladder emptying R33.9 Hydronephrosis N13.30 Reflux, vesicoureteral N13.70
--- OUTSIDE RECORDS SUMMARY | 2024-11-08 18:15 | XMS_ITS | Encounter Summary ---
Author Organization [facility] Address [address] [facility] [address] [place] [address] Phone Care Team Providers Care Publications Production Supervisor Name Role Phone Kimi Patino MD Primary Care Provider [phone] Encounter Details Date Type Department Care Team ([facility] Contact Info) Description 07/05/2020 Orders Only [facility] [address] [facility] [address] [place] [address] Provider, MD Brii Social History [...] Upcoming Encounters Date Type Department Care Team ([facility] Contact Info) Description 02/17/2025 9:00 AM EST Office Visit [facility] [address] [phone] MD [address] [phone] documented as of this encounter Procedures Procedure Name Priority Date/Time Associated Diagnosis Comments EXT RESULT ENTRY Routine 07/02/2020 EXT RESULT ENTRY Routine 07/01/2020 EXT RESULT ENTRY Routine 06/30/2020 documented in this encounter Results * EXT RESULT ENTRY (07/02/2020) [facility] Provider MD LAB BLOOD ORDERABLES Dora l Result * EXT RESULT ENTRY (07/01/2020) [facility] Provider MD LAB BLOOD ORDERABLES Dora l Result * EXT RESULT ENTRY (06/30/2020) [facility] Provider MD LAB BLOOD ORDERABLES Dora l Result documented in this encounter Visit Diagnoses Not on filedocumented in this encounter Care Teams Publications Production Supervisor Relationship Specialty Start Date End Date Kimi Patino MD [address] [place] [id number] PCP - General 03/13/20 documented as of this encounter
--- OUTSIDE RECORDS SUMMARY | 2024-11-08 18:15 | XMS_ITS | Clinical Summary ---
Author Organization [address] [facility] Address [address] [place] [address] Phone Care Team Providers Care Machine Fixer Name Role Phone Kimi Patino MD Primary Care Provider [phone] Allergies Active Allergy Reactions Criticality Noted Date Comments Aspirin Hives,Other 2020 Ciprofloxacin Nausea And Vomiting 02/19/2022 Fish Containing Products 01/21/2022 Penicillins Hives,Other 2020 Sulfamethoxazole Nausea And Vomiting 05/04/2023 Trimethoprim Nausea And Vomiting 05/04/2023 Medications No known medications Active Problems No known active problems Encounters Date Type Department Care Team Description 09/29/2024 10:30 AM EDT Office Visit Orthopedic [facility] [address] [phone] Ravindra Gan DPM Ingrowing nail (Primary Dx); Acquired hammer toe of right foot; Hammer toe of left foot; Diabetic mononeuropathy simplex (CMS/HCC V24, CMS/HCC V28); Dermatophytosis of nail; Type II diabetes mellitus with peripheral circulatory disorder (CMS/HCC V24, CMS/HCC V28); Pain in toe of right foot; Pain in toe of left foot 08/18/2024 1:15 PM EDT Office Visit [place] [address] [phone] Ravindra Gan DPM Cellulitis of left foot (Primary Dx); Ingrowing nail 08/13/2024 10:36 AM EDT - 08/13/2024 12:42 PM EDT Emergency [facility] Emergency [address] [place] [phone] Cellulitis of great toe of left foot (Primary Dx) Discharge Disposition: Home or Self Care from Last 3 Months Medical History Medical History Date Comments Diabetes mellitus ([facility] V24, [facility] V28) Hypertension Stroke ([facility] V24, [facility] V28) CKD (chronic kidney [...] AM EST Office Visit Orthopedic Surgery - [place] [address] [phone] Ravindra Gan, DPAngela [address] [phone] Health Maintenance Due Date Last Done Comments [...] Laterality Modality Lower Extremities, Toes [facility] 08/13/2024 11:3 1 AM EDT [...] Signed Date: 08/13/2024 11:32 ET Workstation ID: [id number] Transcribed By: Self Edit Transcribed Date: 08/13/2024 [...] Signed Date: 08/13/2024 11:32 ET Workstation ID: [id number] Transcribed By: Self Edit Transcribed Date: 08/13/2024 11:31 ET Teetee ALLAN IMG XR PROCEDURES Final Result * (ABNORMAL) CBC auto differential (08/13/2024 10:57 AM EDT) WBC 5.9 4.8 - 10.8 K/mcL LAB HEMETOLOGY METHOD 08/13/2024 11:[address] [facility] RBC 3.10(L) 3.80 - 4.80 M/mcL LAB HEMETOLOGY METHOD 08/13/2024 11:[address] [facility] Hemoglobin 9.3(L) 11.5 - 16.0 g/dL LAB HEMETOLOGY METHOD 08/13/2024 11:[address] [facility] Hematocrit 29.3(L) 35.0 - 47.0 % LAB HEMETOLOGY METHOD 08/13/2024 11:[address] [facility] MCV 95.8 79.0 - 98.0 FL LAB HEMETOLOGY METHOD 08/13/2024 11:[address] [facility] MCH 30.4 27.0 - 32.0 pcg LAB HEMETOLOGY METHOD 08/13/2024 11:[address] [facility] MCHC 31.7(L) 32.0 - 37.0 g/dL LAB HEMETOLOGY METHOD 08/13/2024 11:[address] [facility] RDW 13.3 11.0 - 15.0 % LAB HEMETOLOGY METHOD 08/13/2024 11:[address] [facility] Platelets 230 130 - 400 K/mcL LAB HEMETOLOGY METHOD 08/13/2024 11:[address] [facility] MPV 10.4 7.0 - 11.0 FL LAB HEMETOLOGY METHOD 08/13/2024 11:[address] [facility] NRBC 0.0 <1.0 % LAB HEMETOLOGY METHOD 08/13/2024 11:[address] [facility] NRBC Absolute 0.00 <0.10 K/mcL LAB HEMETOLOGY METHOD 08/13/2024 11:[address] [facility] Neutrophils Relative 70.5 % LAB HEMETOLOGY METHOD 08/13/2024 11:[address] [facility] Lymphocytes Relative 18.2 % LAB HEMETOLOGY METHOD 08/13/2024 11:[address] [facility] Monocytes Relative 8.3 % LAB HEMETOLOGY METHOD 08/13/2024 11:[address] [facility] Eosinophils Relative 2.2 % LAB HEMETOLOGY METHOD 08/13/2024 11:[address] [facility] Basophils Relative 0.5 % LAB HEMETOLOGY METHOD 08/13/2024 11:[address] [facility] Immature Granulocytes Relative 0.3 % LAB HEMETOLOGY METHOD 08/13/2024 11:[address] [facility] Neutrophils Absolute 4.13 1.50 - 7.00 K/mcL LAB HEMETOLOGY METHOD 08/13/2024 11:[address] [facility] Lymphocytes Absolute 1.07 1.00 - 5.00 K/mcL LAB HEMETOLOGY METHOD 08/13/2024 11:[address] [facility] Monocytes Absolute 0.49 0.20 - 1.00 K/mcL LAB HEMETOLOGY METHOD 08/13/2024 11:44 AM EDT [facility] Eosinophils Absolute 0.13 0.00 - 0.50 K/[facility] LAB HEMETOLOGY METHOD 08/13/2024 11:44 AM EDT [facility] Basophils Absolute 0.03 0.00 - 0.20 K/[facility] LAB HEMETOLOGY METHOD 08/13/2024 11:44 AM EDT [facility] Immature Granulocytes Absolute 0.02 0.00 - 0.03 K/[facility] LAB HEMETOLOGY METHOD 08/13/2024 11:44 AM T [facility] Blood Venous blood specimen / Unknown Venipuncture / Unknown 08/13/2024 10:57 AM EDT 08/13/2024 11:37 AM EDT us Teetee ALLAN LAB BLOOD ORDERABLES Final Res ult [facility] [address] [place] [address], * (ABNORMAL) Basic metabolic panel (08/13/2024 10:57 AM EDT) Sodium 137 133 - 145 mmol/L LAB CHEMISTRY METHOD 08/13/2024 12:[address] [facility] Potassium 5.1 3.5 - 5.5 mmol/L LAB CHEMISTRY METHOD 08/13/2024 12:[address] [facility] Comment:Hemolysis present Chloride 108 96 - 110 mmol/L LAB CHEMISTRY METHOD 08/13/2024 12:[address] [facility] CO2 19(L) 21 - 32 mmol/L LAB CHEMISTRY METHOD 08/13/2024 12:[address] [facility] Anion Gap 10 3 - 11 LAB CHEMISTRY METHOD 08/13/2024 12:[address] [facility] Glucose 161(H) 70 - 100 mg/dL LAB CHEMISTRY METHOD 08/13/2024 12:13 PM EDT [facility] BUN 47(H) 5 - 25 mg/dL LAB CHEMISTRY METHOD 08/13/2024 12:13 PM EDT [facility] Creatinine 1.86(H) 0.50 - 1.10 mg/dL LAB CHEMISTRY METHOD 08/13/2024 12:13 PM EDT [facility] eGFR 28(L) >=60 mL/min/1. 73m2 LAB CHEMISTRY METHOD 08/13/2024 12:13 PM EDT [facility] Comment:Calculation based on the Chronic Kidney Disease Epidemiology Collaboration (CKD-EPI) equation refit without adjustment for race. BUN/Creatinine Ratio 25.3 LAB CHEMISTRY METHOD 08/13/2024 12:13 PM EDT [facility] Calcium 8.8 8.5 - 10.5 mg/dL LAB CHEMISTRY METHOD 08/13/2024 12:13 PM EDT [facility] Blood Venous blood specimen / Unknown Venipuncture / Unknown 08/13/2024 10:57 AM EDT 08/13/2024 11:37 AM EDT Teetee ALLAN LAB BLOOD ORDERABLES Final Res ult [facility] [address] [place] [address], from Last 3 Months Insurance MEDICAID - [place] MEDICARE Care Teams Machine Fixer Relationship Specialty Start Date End Date Kimi Patino MD [address] [place] [address] PCP - General 06/06/15
--- OUTSIDE RECORDS SUMMARY | 2024-11-08 18:15 | XMS_ITS | Clinical Summary ---
Author Organization [facility] Address [address] [phone] Phone Care Team Providers Care Machine Installer Name Role Phone Kimi Patino MD Primary [...] Visit [facility] [address] [phone] MD Stage 3b chronic kidney disease (HCC) (Primary Dx); Hyperkalemia; Hypertension; Hypertensive renal disease; Hyponatremia; Left hemiparesis <Left side; Non-dominant side> (HCC); Empty sella syndrome (HCC); Type 2 diabetes mellitus with complication, not otherwise specified (HCC); Cerebrovascular accident (HCC) 08/23/2024 Orders Only [facility] [address] [phone] Kimi Patino MD from Last 3 Months [...] Office Visit [facility] [address] [phone] MD [address] [phone] Health Maintenance Due Date Last Done Comments [...] to complete this topic Insurance Medicare Medicaid [place] Medicaid [place] Medicare Care Teams Machine Installer Relationship Specialty Start Date End Date Kimi Patino MD [address] [place] [phone] PCP - General 03/13/20
== END 2024-11-08 15:56 | disposition home or self-care (01) ==
LOC: HO.HUSH 14:58
PROVIDERS: PCP Internal Medicine; Visit Provider Nurse Practitioner Family
DX: N39.0 Urinary tract infection, site not specified (principal); N31.9 Neuromuscular dysfunction of bladder, unspecified; R33.9 Retention of urine, unspecified; N13.30 Unspecified hydronephrosis; N13.70 Vesicoureteral-reflux, unspecified; Z13.9 Encounter for screening, unspecified
CPT/HCPCS: 99214; G2211

== ENCOUNTER 2024-11-08 14:57 | Outpatient (REF) | payer MEDICARE, MEDICAID, SELFPAY | END 2024-11-08 14:58 | disposition home or self-care (01) | LOC: HO.LAB 14:57 | PROVIDERS: PCP Internal Medicine; Visit Provider Nurse Practitioner Family | DX: N39.0 Urinary tract infection, site not specified (principal); N31.9 Neuromuscular dysfunction of bladder, unspecified; R33.9 Retention of urine, unspecified; N13.30 Unspecified hydronephrosis; N13.70 Vesicoureteral-reflux, unspecified | CPT/HCPCS: 81003; 87086; 87088; 87186; 99212 ==

== ENCOUNTER 2024-12-10 10:57 | Outpatient (AMB) | payer MEDICARE, MEDICAID, SELFPAY ==
--- NOTE | 2024-12-10 11:04 | MHC.OFFVIS ---
Vital Signs 12/10/24 11:05 Height 4 ft 10 in Weight 127 lb 13.89 oz BMI 26.7 BP 128/51 L Blood Pressure Location Rt brachial Position Sitting Pulse 73 Pulse Source Pulse Oximeter Pulse Oximetry (%) 100 Oxygen Delivery Method Room Air Intake Visit Reasons: DM Intake Note: Patient present today for Type 2 Diabetes Mellitus Last Diabetic eye exam: Last exam was about 2 weeks ago. Last Podiatry Visit: Doesn't have one Random Glucose: 198 mg/dl HgA1C: 7.0% Lead Programmer Required: Yes Lead Programmer Language: Digital Strategist Senior Manager Services: Lead Programmer Offered & Declined Accompanied by: Daughter Allergies aspirin (ASPIRIN) Allergy (Severe, Verified 12/10/24 11:11) Swelling, rash fish derived (FISH) Allergy (Mild, Verified 12/10/24 11:11) Rash, Swelling Penicillins (PENICILLINS) Allergy (Unknown, Verified 12/10/24 11:11) Swelling Medication List - Last Reconciled 12/10/24 by Destiny Lazo PA-C acetaminophen 650 mg PO Q6H PRN ascorbate calcium (vitamin C) 500 mg PO DAILY 90 days atorvastatin 40 mg PO BEDTIME [Bedside commode As directed] blood sugar diagnostic (FreeStyle Lite Strips) As directed three times a day blood-glucose meter (FreeStyle Lite Meter kit) As directed 4x/day cholecalciferol (vitamin D3) 50 mcg PO DAILY 30 days clopidogrel 75 mg PO DAILY cyanocobalamin (vitamin B-12) (Vitamin B-12) 1,000 mcg PO DAILY furosemide 20 mg PO DAILY insulin degludec (Tresiba FlexTouch U-200 insulin) 20 units (0.1 mL) subcut DAILY insulin lispro (Admelog SoloStar U-100 Insulin lispro) tid with meals 100-150 0 units 151-200 6 units over 251-300 8 units subcutaneously use as directed; lancets As directed lansoprazole 30 mg PO DAILY levothyroxine 88 mcg PO DAILY@0600 metoprolol succinate ER 25 mg PO BID nitrofurantoin macrocrystal 100 mg PO BID 10 days pen needle, diabetic (BD Denisa 2nd Gen Pen Needle) USE DIRECTED FOUR TIMES DAILY [raised toilet seat with arms As directed] [Shower chair with arms As directed] triamcinolone acetonide 0.1% 1 appl topical DAILY 30 days [walker with seat and breaks As directed] HPI HPI DM: Details: Patient is a 74-year-old female with a significant past medical history of 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 Her daughter is here today with her. Endo: She was previously following with my colleagues for her diabetes. Her most recent A1c is 7. She is currently on Lantus 25 units nightly, lispro sliding scale. CGM-Angela to download shows usage 85%, average glucose 134, G mi 6.5%, variability 41%. Very hyperglycemic 3%, hyperglycemic 16%, in range 70%, low 8%, very low 3%. Lows appear to occur overnight and evening. She has no sx of this. She does not fingerstick. Following with [facility]- Seeing Dr. Weiner Was referred to Ophthalmology at our last visit CV: Blood pressure today in the office is 128/51. She is currently managed with metoprolol 25 mg twice a day, furosemide 20 mg daily. Cholesterol is managed with atorvastatin 40 mg. Nephro: Avoids NSAIDs. On Tylenol as needed for pain. 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 Mother Pancreatic cancer Social History Household Members: Children Housing: House Do you presently have visiting nurse or other home services: No Alcohol intake: current Alcohol intake frequency: does not drink Patient Tobacco Use Status: Never used Tobacco e-Cigarette/Vaping Use: Never Used Second Hand Smoke Exposure: No Advance Directives Date on File: 02/04/20 service: No Current occupational status: unemployed Cognitive needs: No Hearing needs: No Vision needs: Yes Physical Exam Vital Signs: Last Vital Signs Pulse 73 12/10/24 11:05 BP 128/51 L 12/10/24 11:05 Pulse Ox 100 12/10/24 11:05 Oxygen Delivery Method Room Air 12/10/24 11:05 BMI result Body Mass Index 26.7 Const Orientation/consciousness: patient oriented x3 HEENT Ears: hearing grossly normal bilaterally Neck Thyroid: Thyroid normal Lymphatic: no lymphadenopathy noted Resp Auscultation: clear to auscultation bilaterally Cardio Rate: regular rate Rhythm: regular rhythm Heart sounds: S1 normal heart sound present and S2 normal heart sound present Skin General skin exam: no rashes or lesions noted Neuro General: patient oriented x3, gait normal and no focal motor deficits Results AMB Hemoglobin A1c AMB Hemoglobin A1c 7.0 % Last Edit by KARMEN Logan on 12/10/24 11:22 Results Reviewed Results Reviewed: Laboratory Last Values Glucose (Clinic) 198 mg/dL (60-115) H 12/10/24 11:13 Assessment & Plan Assessment & Plan (1) Diabetes 1.5, managed as type 2: Code(s): E13.9 - Other specified diabetes mellitus without complications Category: Medical Plan: We will from the [facility] to [facility] as Tresiba is safer for patient's with low blood sugars. We will reduce the dosage to 20 units. I have reduced the sliding scale. She will return in 3 months or sooner if needed. She will call me if she is still having any low blood sugars. (2) Hyperlipemia: Code(s): E78.5 - Hyperlipidemia, unspecified Category: Medical Qualifiers: Hyperlipidemia type: mixed hyperlipidemia Qualified Code(s): E78.2 - Mixed hyperlipidemia Plan: WNL. Continue current regimen (3) HTN (hypertension): Code(s): I10 - Essential (primary) hypertension Category: Medical Qualifiers: Hypertension type: primary hypertension Qualified Code(s): I10 - Essential (primary) hypertension Plan: Continue current regimen Plan Patient's daughter is going to contact PCP today to review the weight loss. Orders: Orders AMB Hemoglobin A1c Today E11.9 - Type 2 diabetes mellitus without complications, Z13.9 - Encounter for screening, unspecified Medications: New insulin degludec (Tresiba FlexTouch U-200 insulin) 20 units (0.1 mL) subcut DAILY 9 mL 3RF Changed From insulin lispro (Admelog SoloStar U-100 Insulin lispro) tid with meals 100-150 12 units 151-250 14 units over 250 16 units subcutaneously use as directed; 15 mL 4RF MDD 48 units To insulin lispro (Admelog SoloStar U-100 Insulin lispro) tid with meals 100-150 0 units 151-200 6 units over 251-300 8 units subcutaneously use as directed; 15 mL 4RF Refilled levothyroxine 88 mcg PO DAILY@0600 90 tabs 3RF blood sugar diagnostic (FreeStyle Lite Strips) As directed three times a day 100 ea 11RF E11.65 - Type 2 diabetes mellitus with hyperglycemia, Z79.4 - 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
[2024-12-10 11:05] VITALS: BP 128/51; PULSE 73; O2SAT 100; BMI 26.7
[2024-12-10 11:17] LABS: Glucose, Whole Blood 198 mg/dL (60-115)
== END 2024-12-10 11:30 | disposition home or self-care (01) ==
LOC: HO.ENCR 10:58
PROVIDERS: PCP Internal Medicine; Visit Provider Physician Assistant
DX: E13.9 Other specified diabetes mellitus without complications (principal); E78.2 Mixed hyperlipidemia; I10 Essential (primary) hypertension; Z13.9 Encounter for screening, unspecified; E11.9 Type 2 diabetes mellitus without complications

== ENCOUNTER → 2024-12-10 10:57 | Outpatient (BNVA) | payer MEDICARE, MEDICAID, SELFPAY | PROVIDERS: PCP Internal Medicine; Visit Provider Physician Assistant | DX: I10 Essential (primary) hypertension (principal); E13.65 Other specified diabetes mellitus with hyperglycemia; E78.2 Mixed hyperlipidemia; Z79.4 Long term (current) 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 | CPT/HCPCS: 82947; 83036; 99212 ==

== ENCOUNTER 2025-01-10 13:09 | Outpatient (REF) | payer MEDICARE, MEDICAID, SELFPAY ==
--- OUTSIDE RECORDS SUMMARY | 2025-01-10 15:19 | XMS_ITS | Clinical Summary ---
Author Organization [facility] Address [address] [address] Phone Care Team Providers Care Numerologist Name Role Phone Kimi Patino MD Primary Care Provider [phone] Allergies Active Allergy Reactions Criticality Noted Date [...] [facility] [address] [place] [address] [id number] MD [address] [facility] [address] [place] [address] Health Maintenance Due Date Last Done Comments [...] Medicaid [place] Medicare Care Teams Numerologist Relationship Specialty Start Date End Date Kimi Patino MD [facility] [place], [place] [id number] PCP - General 03/13/20
--- OUTSIDE RECORDS SUMMARY | 2025-01-10 15:19 | XMS_ITS | Clinical Summary ---
Author Organization [address] [facility] Address [address] [place] [address] Phone Care Team Providers Care Director Business Integration Name Role Phone Kimi Patino MD Primary Care Provider [phone] Allergies Active Allergy Reactions Criticality Noted Date Comments Aspirin Hives,Other 2020 Ciprofloxacin Nausea And Vomiting 02/19/2022 Fish Containing Products 01/21/2022 Penicillins Hives,Other 2020 Sulfamethoxazole Nausea And Vomiting 05/04/2023 Trimethoprim Nausea And Vomiting 05/04/2023 Medications No known medications Active Problems No known active problems Medical History Medical History Date Comments Diabetes mellitus ([facility] V24, [facility] V28) Hypertension Stroke ([facility] V24, [facility] V28) CKD (chronic kidney disease) Arthritis Social [...] Care Team (Late st Contact Info) Description 03/17/2025 10:00 AM EST Office Visit Orthopedic Surgery - [place] [address] [address] Ravindra Gan, DPM [address] [address] Health Maintenance Due Date Last Done Comments Breast Cancer Screening 1950 Colorectal Cancer Screening: Colonoscopy 1950 HIB Vaccines (1 of 1 - Risk 1-dose series) 10/03/1953 Meningococcal ACWY Vaccine (1 - Risk 2-dose series) 1954 Diabetes: Annual Foot Exam 1962 Diabetes: Annual Retina Eye Exam 1962 Meningococcal B Vaccine (1 of 4 - Increased Risk) 1962 RSV Immunization Adult Patients (1 - Risk 50-74 years 1-dose series) 2002 Zoster Vaccines (2 of 2) 02/13/2018 12/19/2017 COVID-19 Vaccine (3 - Pfizer risk series) 08/13/2020 07/16/2020, 06/25/2020 Cholesterol Screening (Lipid Panel) 02/03/2022 Falls Risk Assessment 02/03/2022 Hepatitis C [...] Procedure Name Priority Date/Time Associated Diagnosis Comments BASIC METABOLIC PANEL STAT 08/13/2024 10:57 AM EDT from Last 3 Months or Most Recently Relevant to Health Maintenance Results * (ABNORMAL) Basic metabolic panel (08/13/2024 10:57 AM EDT) Sodium 137 133 - 145 mmol/L LAB CHEMISTRY METHOD 08/13/2024 12:13 PM [facility] Potassium 5.1 3.5 - 5.5 mmol/L LAB CHEMISTRY METHOD 08/13/2024 12:13 PM [facility] Comment:Hemolysis present Chloride 108 96 - 110 mmol/L LAB CHEMISTRY METHOD 08/13/2024 12:13 PM [facility] CO2 19(L) 21 - 32 mmol/L LAB CHEMISTRY METHOD 08/13/2024 12:13 PM [facility] Anion Gap 10 3 - 11 LAB CHEMISTRY METHOD 08/13/2024 12:13 PM [facility] Glucose 161(H) 70 - 100 mg/dL LAB CHEMISTRY METHOD 08/13/2024 12:13 PM EDT [facility] BUN 47(H) 5 - 25 mg/dL LAB CHEMISTRY METHOD 08/13/2024 12:13 PM EDT [facility] Creatinine 1.86(H) 0.50 - 1.10 mg/dL LAB CHEMISTRY METHOD 08/13/2024 12:13 PM EDT [facility] eGFR 28(L) >=60 mL/min/1. 73m2 LAB CHEMISTRY METHOD 08/13/2024 12:13 PM EDT [facility] Comment:Calculation based on the Chronic Kidney Disease Epidemiology Collaboration (CKD-EPI) equation refit without adjustment for race. BUN/Creatinine Ratio 25.3 LAB CHEMISTRY METHOD 08/13/2024 12:13 PM EDT [facility] Calcium 8.8 8.5 - 10.5 mg/dL LAB CHEMISTRY METHOD 08/13/2024 12:13 PM EDT [facility] Blood Venous blood specimen / Unknown Venipuncture / Unknown 08/13/2024 10:57 AM EDT 08/13/2024 11:37 AM EDT us Teetee ALLAN LAB BLOOD ORDERABLES Final Res ult [facility] [address] [place] [address], from Last 3 Months or Most Recently Relevant to Health Maintenance Insurance MEDICAID - [place] MEDICARE Care Teams Director Business Integration Relationship Specialty Start Date End Date Kimi Patino MD [address] [place] [address] PCP - General 06/06/15
--- OUTSIDE RECORDS SUMMARY | 2025-01-10 15:19 | XMS_ITS | Encounter Summary ---
Author Organization [facility] Address [address] [facility] [address] [place] [address] Phone Care Team Providers Care Street Light Repairer Helper Name Role Phone Kimi Patino MD Primary Care Provider [phone] Encounter Details Date Type Department Care Team ([facility] Contact Info) Description 07/05/2020 Orders Only [facility] [address] [facility] [address] [place] [address] Provider, MD Brii Social History [...] Upcoming Encounters Date Type Department Care Team ([facility] Contact Info) Description 02/17/2025 9:00 AM EST Office Visit [facility] [address] [address] MD [address] [address] documented as of this encounter Procedures Procedure Name Priority Date/Time Associated Diagnosis Comments EXT RESULT ENTRY Routine 07/02/2020 EXT RESULT ENTRY Routine 07/01/2020 EXT RESULT ENTRY Routine 06/30/2020 documented in this encounter Results * EXT RESULT ENTRY (07/02/2020) [facility] Provider MD LAB BLOOD ORDERABLES Dora l Result * EXT RESULT ENTRY (07/01/2020) [facility] Provider MD LAB BLOOD ORDERABLES Dora l Result * EXT RESULT ENTRY (06/30/2020) [facility] Provider MD LAB BLOOD ORDERABLES Dora l Result documented in this encounter Visit Diagnoses Not on filedocumented in this encounter Care Teams Street Light Repairer Helper Relationship Specialty Start Date End Date Kimi Patino MD [address] [place] [id number] PCP - General 03/13/20 documented as of this encounter
[2025-01-10 16:02] LABS: MANUAL DIFF FLAG NO
[2025-01-10 16:09] LABS: Hematocrit 29.2 % (37.0-47.0); Hemoglobin 9.5 g/dl (12.0-16.0); Imm Gran Abs Auto 0.01 X10*3/uL (0.00-0.03); Imm Gran Pct Auto 0.2 % (0.0-0.4); Lymphocytes Absolute Auto 1.0 X10*3/uL (1.2-4.9); Mean Corpuscular HGB Conc 32.5 g/dl (31.0-35.0); Mean Corpuscular Hemoglobin 31.1 pg (27.0-33.0); Mean Corpuscular Volume 95.7 fL (80.0-98.0); NRBC Abs Auto 0.000 X10*3/uL (0.0-0.012); NRBC Pct Auto 0.0 /100WBC (0.0-0.2); Platelet Count 198 X10*3/uL (160-400); Red Blood Count 3.05 X10*6/uL (4.20-5.50); White Blood Count 4.1 X10*3/uL (4.8-10.8)
[2025-01-10 17:21] LABS: Alanine Aminotransferase 39 U/L (0-31); Albumin Level 3.5 g/dL (3.5-5.0); Alkaline Phosphatase 308 U/L (39-117); Anion Gap 15 (12-20); Aspartate Amino Transferase 63 U/L (5-31); Blood Urea Nitrogen 28 mg/dL (9-16); Calcium 8.7 mg/dL (8.4-10.2); Carbon Dioxide 14 mmol/L (22-29); Chloride 113 mmol/L (96-108); Estimated Glomerular Filt Rate 21; Potassium 4.1 mmol/L (3.3-5.1); Sodium 138 mmol/L (135-145); Total Protein 7.9 g/dL (6.5-8.0)
[2025-01-21 07:58] LABS: Vitamin D 25-OH, D3 22
[2025-01-21 07:59] LABS: Vitamin D 25-OH, D2 <4
[2025-01-21 08:00] LABS: Vitamin D 25-OH, Total 22
== END 2025-01-10 13:10 | disposition home or self-care (01) ==
LOC: HO.HMGCLDS 13:09
PROVIDERS: PCP Internal Medicine; Visit Provider Internal Medicine
DX: I12.9 Hypertensive chronic kidney disease with stage 1 through stage 4 chronic kidney disease, or unspecified chronic kidney disease (principal); E11.22 Type 2 diabetes mellitus with diabetic chronic kidney disease; N18.30 Chronic kidney disease, stage 3 unspecified; E78.9 Disorder of lipoprotein metabolism, unspecified; E55.9 Vitamin D deficiency, unspecified; K21.9 Gastro-esophageal reflux disease without esophagitis; L29.9 Pruritus, unspecified; R63.4 Abnormal weight loss; R79.89 Other specified abnormal findings of blood chemistry; Z92.29 Personal history of other drug therapy
CPT/HCPCS: 36415; 80053; 82306; 83721; 84443; 85025

== ENCOUNTER 2025-01-18 10:22 | Emergency (ER) | payer MEDICARE, MEDICAID, SELFPAY ==
--- NOTE | ~2025-01-18 | CT_ITS ---
EXAMINATION: CT ABDOMEN AND PELVIS WITHOUT CONTRAST CLINICAL INFORMATION: LLQ pain, diarrhea, R/O diverticulitis COMPARISON: August 22, 2022 and July 22, 2020 TECHNIQUE: Multidetector volumetric imaging was performed from the superior aspect of the liver through the pubic symphysis. Sagittal and coronal reformatted images were obtained on the technologist's workstation. This CT examination was performed using dose optimization techniques as appropriate, variously including the following: *Automated exposure control *Adjustment of mA and/or kV according to patient size (this includes techniques or standardized protocols for targeted exams where dose is matched to indication/reason for exam; i.e. extremities or head) *Use of iterative reconstruction technique FINDINGS: LUNG BASES: The visualized lung bases are unremarkable. LIVER, GALLBLADDER, AND BILIARY TREE: Again seen is high attenuation in the gallbladder fossa near the fundus of the gallbladder. Rectangular in shape measuring 10 x 15 mm. On coronal and sagittal reformats, it has a coiled spring-like appearance. There is also chronic calcification in the region of the neck of the gallbladder that could be vascular. No other abnormalities are seen. PANCREAS: There is chronic moderate fatty replacement. SPLEEN: Unremarkable. ADRENAL GLANDS: Unremarkable. KIDNEYS AND URETERS: Chronic moderate to severe hydroureter nephrosis and hydroureter is slightly increased from the prior. There is renal cortical thinning, left greater than right. BLADDER: Unremarkable. GASTROINTESTINAL TRACT: The small and large bowel are unremarkable. The appendix is not identified. There is nonspecific mild prominence of mesenteric vascularity, slightly increased from the prior. ABDOMINAL WALL: Stable 1 cm supraumbilical hernia contains adipose tissue. LYMPH NODES: Normal. VASCULAR: Moderate vascular calcifications are present. PELVIC VISCERA: The uterus is surgically absent. OSSEOUS STRUCTURES: Multilevel degenerative changes are present throughout the spine with disc space narrowing most advanced at L1-2. Moderate degenerative changes are also present in the SI joints with sclerosis, vacuum phenomena, osteophytes, and degenerative cysts. CT/CT abdomen pelvis wo IV con IMPRESSION: Nonspecific mildly prominent mesenteric vascularity. Chronic hydroureteronephrosis is mildly increased. There is a chronic density in the gallbladder fossa near the gallbladder fundus that has been present since at least 2020. It has a spring-like appearance. Fleischner guidelines were followed. Electronically signed by: Hakeem Da Silva MD 01/18/2025 01:28 PM [facility]
[2025-01-18 10:24] VITALS: BP 165/70; PULSE 94; RESP 18; TEMP 36.1; O2SAT 98; BMI 25.6
--- NOTE | 2025-01-18 10:24 | ED.ABDPAIN ---
HPI - Abdominal Pain General Chief Complaint: Abdominal Pain Stated Complaint: Stomach Pain Time Seen by Provider: 01/18/25 11:25 Source: patient and family ( Daughter, Kristy) History of Present Illness ED Provider: Dr. Chris Feliciano HPI narrative: 74-year-old female with a history of chronic kidney disease-stage 3, diabetes mellitus, diabetic neuropathy, hypoglycemia, hyperparathyroidism, CVA, hypothyroidism, hypertension, hyperlipidemia, carotid endarterectomy, hysterectomy who presents emergency department for evaluation of abdominal pain, nausea, loose stool X2 weeks. The patient is complaining of left lower quadrant abdominal pain which she describes as a heaviness. The pain is intermittent and isworse after she moves her bowels. She states for the last 2 weeks, she had loose, greenish yellow stool with small amounts of blood in the stool. She has 2-3 bowel movements per day which is unusual for her. She states that the abdominal pain is 9/10 at worse while she is moving her bowels and is relieved with oral Tylenol. The daughter states the patient has been losing weight but can not specify the amount. The patient has not been on antibiotics recently . She [place] [facility] [place] 08/03/2024 (Klebsiella pneumoniae ). At that time shepresented with weakness and confusion with no abdominal pain . She was treated with ceftriaxone IV while in the hospital and discharged on Ceftin. Patient was recentseen by her vegetable worker 12/10/2024 for diabetes checkup. Review of systems was negative for fever, chills, nausea, vomiting, dysuria. She has chronic urinary frequency and chronic shortness of breath. Related Data Home Medications ?Medication ?Instructions ?Recorded ?Confirmed metoprolol succinate 25 mg 25 mg PO BID 01/13/20 12/10/24 tablet,extended release 24 hr lancets 28 gauge #100 ea 04/25/20 12/10/24 furosemide 20 mg tablet 20 mg PO DAILY 07/20/20 12/10/24 acetaminophen 325 mg tablet 650 mg PO Q6H PRN Pain 01/16/22 12/10/24 Previous Rx's ?Medication ?Instructions ?Recorded cholecalciferol (vitamin D3) 50 50 mcg PO DAILY 30 days #30 caps 01/31/20 mcg (2,000 unit) capsule cyanocobalamin (vitamin B-12) 1,000 mcg PO DAILY #90 tabs 02/22/20 1,000 mcg tablet (Vitamin B-12) blood-glucose meter (FreeStyle #1 ea 04/25/20 Lite Meter kit) walker with seat and breaks #1 ea 05/15/20 Shower chair with arms #1 ea 06/16/20 raised toilet seat with arms #1 ea 06/16/20 Bedside commode #1 ea 11/07/20 ascorbate calcium (vitamin C) 500 500 mg PO DAILY 90 days #90 tabs 03/11/22 mg tablet pen needle, diabetic 32 gauge x #200 ea 03/12/24 (BD Denisa 2nd Gen Pen Needle) clopidogrel 75 mg tablet 75 mg PO DAILY #90 tabs 07/15/24 atorvastatin 40 mg tablet 40 mg PO BEDTIME #90 tabs 11/02/24 lansoprazole 30 mg capsule,delayed 30 mg PO DAILY #90 caps 11/02/24 release triamcinolone acetonide 0.1 % 1 appl topical DAILY 30 days #60 mL 11/02/24 lotion nitrofurantoin macrocrystal 100 mg 100 mg PO BID 10 days #20 caps 11/11/24 capsule Admelog SoloStar U-100 Insulin 100 See Rx Instructions subcut 12/10/24 unit/mL subcutaneous pen (insulin USEASDIRECTD #15 mL lispro) blood sugar diagnostic (FreeStyle #100 ea 12/10/24 Lite Strips) levothyroxine 88 mcg tablet 88 mcg PO DAILY@0600 #90 tabs 12/10/24 insulin degludec 200 unit/mL (3 20 unit (0.1 mL) subcut DAILY #9 mL 12/15/24 mL) subcutaneous pen (Tresiba FlexTouch U-200 insulin) Allergies Allergy/AdvReac Type Severity Reaction Status Date / Time aspirin (ASPIRIN) Allergy Severe Swelling, Verified 01/18/25 10:26 rash fish derived (FISH) Allergy Mild Rash, Verified 01/18/25 10:26 Swelling Penicillins (PENICILLINS) Allergy Unknown Swelling Verified 01/18/25 10:26 Review of Systems Review of Systems Yes all other systems are reviewed and are negative [facility] Past Medical History [facility] Narrative: Social history: The patient lives with her daughter, Kristy who is here in the emergency department with the patient. She also lives with her . Medical History (Updated 01/19/25 @ 00:00 by Srinivasa Martin) CKD (chronic kidney disease) stage 3, GFR 30-59 ml/min Hyperchloremic metabolic acidosis Colonoscopy refused Abnormal SPEP Personal history of malignant neoplasm of uterus Subcutaneous mass T2DM (type 2 diabetes mellitus) Urinary retention with incomplete bladder emptying Osteoporosis Elevated liver enzymes Hypoglycemia Hyperparathyroidism Serum calcium elevated CKD stage 3 due to type 2 diabetes mellitus terminal carman (current) 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 Bacteremia Vitamin D deficiency Diabetes type 2, uncontrolled History of non anemic vitamin B12 deficiency Iron deficiency anemia Renal tubular acidosis History of uterine fibroid CVA (cerebral vascular accident) Hypothyroidism HTN (hypertension) Hyperlipemia Diabetic neuropathy Diabetes Yeast infection involving the vagina and surrounding area Surgical History (Updated 01/13/25 @ 14:50 by Kiara Pinto RN) Hx of cystoscopy (11/12/22) History of endoscopy History of colonoscopy History of cataract surgery H/O carotid endarterectomy History of hysterectomy Family History Family History Maternal Grandmother No problems noted. Mother Pancreatic cancer Social History Social History Household Members: Children Housing: House Do you presently have visiting nurse or other home services: No Alcohol intake: current Alcohol intake frequency: does not drink Patient Tobacco Use Status: Never used Tobacco e-Cigarette/Vaping Use: Never Used Second Hand Smoke Exposure: No Advance Directives Date on File: 02/04/20 service: No Current occupational status: unemployed Cognitive needs: No Hearing needs: No Vision needs: Yes Physical Exam ED Vital Signs: Vital Signs - 24 hr 01/18/25 10:24 01/18/25 11:37 Temperature 97 F 97.8 F Pulse Rate 94 85 Respiratory Rate 18 16 Blood Pressure 165/70 H 142/64 H Pulse Oximetry 98 98 Oxygen Delivery Method Room Air Room Air BMI result Body Mass Index 25.6 vital signs revealed an elevated blood pressure of 165/70 otherwise unremarkable Exam: General: Awake, alert in no distress Head: Normocephalic, atraumatic EENT: PERRL, sclera and conjunctiva are normal, mouth with no erythema or exudates Neck: Supple, no adenopathy Lung: breath sounds symmetric, no wheezing, no rales and no rhonchi Chest: symmetric movement, nontender Heart: regular rate and rhythm, normal S1, S2 no murmurs or rubs Abdomen: soft, Moderate left lower quadrant and suprapubic tenderness, normoactive bowel sounds, nondistended, normal bowel sounds Rectal: No external hemorrhoids noted, no other abnormalities noted externally, no mass on digital exam, no stool for testing Back: left CVA tenderness, tenderness palpation of the left paraspinal muscles in the lumbar sacral area with no spasm Extremities: no deformities, moves all extremities symmetrically, no edema Neuro: Awake, alert, oriented, normal speech, cranial nerves 2-12 intact, moves all extremities symmetrically Psych: Pleasant, cooperative Course Course Course Narrative: This is an RME: Additional HPI, ROS, PE not included below will be deferred to primary provider. RME assessment and note performed by: Mikayla Heredia PA-C This is a 46-[id number]-female, with a hx of CKD, T2DM, hyperparathyroidism, CVA, HTN, HLD, who presents to the ER with complaints of abdominal pain x 2 weeks. +Nausea, and loose stools with bright orange color. Reporting weight loss - lost 25lbs within past year. No fevers or chills. Hx of hysterectomy. Reports chronic urinary retention and frequency - family reports due to diabetes. TTP in the LLQ Plan: Labs, UA, further ER eval needed. Deferring imaging to primary provider if deemed appropriate. Reevaluation(s) Reevaluation #1: 6:53 PM 01/23/2025 (Klarissa Galeano PA-C): Patient's urine culture grew Enterococcus. Susceptible to ampicillin, Macrobid, vancomycin. Patient is allergic to penicillins and has kidney dysfunction. Discussed with daughter/HCP. Patient does not have any dysuria/flank pain or fever/chills. Appears patient has chronically infected urine/colonization - do not think IV antibiotics are necessary at this time. Recommended repeat urine test this week with PCP. Patient also follows with urology which daughter will call tomorrow. Discussed worrisome signs and symptoms. Will not treat with antibiotics at this time. Medical Decision Making Medical Decision Making MDM Narrative: 74-year-old female with a history of chronic kidney disease-stage 3, diabetes mellitus, diabetic neuropathy, hypoglycemia, hyperparathyroidism, CVA, hypothyroidism, hypertension, hyperlipidemia, carotid endarterectomy, hysterectomy who presents emergency department for evaluation of abdominal pain, nausea, loose stool X2 weeks. The patient is complaining of left lower quadrant abdominal pain which she describes as a heaviness. The pain is intermittent and isworse after she moves her bowels. She states for the last 2 weeks, she had loose, greenish yellow stool with small amounts of blood in the stool. She has 2-3 bowel movements per day which is unusual for her. She states that the abdominal pain is 9/10 at worse while she is moving her bowels and is relieved with oral Tylenol. The daughter states the patient has been losing weight but can not specify the amount. The patient has not been on antibiotics recently . She was [place] [facility] 08/03/2024 (Klebsiella pneumoniae ). At that time shepresented with weakness and confusion with no abdominal pain . She was treated with ceftriaxone IV while in the hospital and discharged on Ceftin. Patient was recentseen by her vegetable worker 12/10/2024 for diabetes checkup.Review of systems was negative for fever, chills, nausea, vomiting, dysuria. She has chronic urinary frequency and chronic shortness of breath. Differential diagnosis: Includes but is not limited to viral syndrome, C diff colitis, nonspecific colitis,diverticulitis, pancreatitis, anemia, electrolyte abnormalities, urinary tract infection, pyelonephritis, renal ,, ureteral stone Course: 12:18 my independent interpretation patient's laboratory evaluation as follows: Chronic normocytic anemia with an H&H of 10 and 30.3 with a normal platelet count of a 101,000-consistent with a renal disease. Elevated BUN and creatinine 26 and 1.97 with a GFR of 24 which is similar to a GFR of 21 on 01/10/2025. Glucose elevated 242. elevated AST, ALT and alk-phos at 59, 36 and 510-unchanged from previous. Urinalysis was positive for protein, glucose, blood and leukocyte esterase. Microscopic revealed greater than 50 WBCs, 11-20 squamous cells, 1+ bacteria - this has not a clean catch specimen. Patient has no UTI symptoms therefore I doubt she has a urinary tract infection at this time. I will obtain a CT scan of the abdomen pelvis to evaluate the patient for possible diverticulitis /colitis. 15:17 CT scan of the abdomen pelvis did not reveal any clear cause for the patient's abdominal pain or diarrhea. Patient states she is feeling better. Patient most likely has a viral syndrome. She has not been able to you produce a stool sample therefore I think that C diff is very unlikely. I did discuss this with the patient using a drying oven attendant, patient's daughter had to picker box operator her children. patient will be discharged home when the daughter returns. 16:37 Patient's daughters his back in the ED and I did discuss the normal CT scan. Did tell the daughter the patient most likely has a viral illness as the cause as her symptoms and the patient is discharged home in the care of her daughter. Differential Diagnosis Differential Diagnoses: The differential diagnosis associated with the presentation includes ( See above) Admission/Observation Consideration of admission/observation: Escalation of care including admission/observation considered ( yes) Lab Data MDM Lab Attestation statement: I reviewed the patient's lab results. 01/18/25 10:44 01/18/25 10:44 Labs: Lab Results 01/18/25 01/18/25 Range/Units 10:44 10:55 WBC 4.5 L (4.8-10.8) X10*3/uL RBC 3.17 L (4.20-5.50) X10*6/uL Hgb 10.0 L (12.0-16.0) g/dl Hct 30.3 L (37.0-47.0) % MCV 95.6 (80.0-98.0) fL MCH 31.5 (27.0-33.0) pg MCHC 33.0 (31.0-35.0) g/dl RDW 13.6 (11.0-16.0) % Plt Count 181 (160-400) X10*3/uL MPV 10.4 (9.4-12.3) fL Immature Gran % (Auto) 0.2 (0.0-0.4) % Neut % (Auto) 65.0 (45-73) % Lymph % (Auto) 23.4 (20-40) % [place] % (Auto) 7.4 (2-11) % Eos % (Auto) 3.6 (0-4) % Baso % (Auto) 0.4 (0-2) % Lymph # (Auto) 1.1 L (1.2-4.9) X10*3/uL [place] # (Auto) 0.3 (0.1-1.2) X10*3/uL Eos # (Auto) 0.2 (0.0-0.4) X10*3/uL Baso # (Auto) 0.0 (0.0-0.2) X10*3/uL Abs Immat Gran (auto) 0.01 (0.00-0.03) X10*3/uL Absolute Neuts (auto) 2.9 (2.0-8.3) x10*3/uL Absolute Nucleated RBC 0.000 (0.0-0.012) X10*3/uL Nucleated RBC % (auto) 0.0 (0.0-0.2) /100WBC Sodium 136 (135-145) mmol/L Potassium 4.4 (3.3-5.1) mmol/L Chloride 116 H (96-108) mmol/L Carbon Dioxide 16 L (22-29) mmol/L Anion Gap 8 L (12-20) BUN 26 H (9-16) mg/dL Creatinine 1.97 H (0.5-1.4) mg/dL Estim Creat Clear Calc 19.0 Estimated GFR 25 Random Glucose 242 H (60-115) mg/dL Calcium 8.9 (8.4-10.2) mg/dL Magnesium 2.1 (1.6-2.6) mg/dL Total Bilirubin 0.3 (0.0-1.0) mg/dL Direct Bilirubin 0.1 (0.0-0.5) mg/dL AST 59 H (5-31) U/L ALT 36 H (0-31) U/L Alkaline Phosphatase 310 H (39-117) U/L Total Protein 7.9 (6.5-8.0) g/dL Albumin 3.6 (3.5-5.0) g/dL Lipase < 4 L (8-78) U/L Urine Color Yellow Urine Appearance Turbid Urine pH 6.0 (5.0-9.0) Ur Specific [place] 1.010 (1.005-1.025) Urine Protein 30 (1+) H (Neg-Trace) mg/dL Urine Glucose (UA) 100 H (Negative) mg/dL Urine Ketones Negative (Negative) mg/dL Urine Blood Small (1+) H (Negative) Urine Nitrite Negative (Negative) Ur Leukocyte Esterase Large (3+) H (Negative) Urine RBC 0-2 (0-2) /HPF Urine WBC >50 H (0-5) /HPF Ur Squamous Epith Cells 11-20 (0-2) /HPF Urine Bacteria 1+ (None Seen) Hyaline Casts 0-2 (0-2) /LPF Urine Yeast Present Radiology Impression Discussion of test interpretation with radiology: I have reviewed the radiologist's reading. Radiologist Impression: CT abdomen pelvis wo IV con IMPRESSION: Nonspecific mildly prominent mesenteric vascularity. Chronic hydroureteronephrosis is mildly increased. There is a chronic density in the gallbladder fossa near the gallbladder fundus that has been present since at least 2020. It has a spring-like appearance. Fleischner guidelines were followed. Electronically signed by: Hakeem Da Silva MD 01/18/2025 01:28 PM EST External Record Review External record reviewed: Inpatient record and Office record Chronic Conditions Patient?s care impacted by: Diabetes Medications Administered Discontinued Medications Generic Name Dose Route Start Last Admin Trade Name Freq PRN Reason Stop Dose Admin Acetaminophen 975 mg 01/18/25 11:58 01/18/25 12:31 Acetaminophen 325 Mg Tablet PO 01/18/25 11:59 975 mg ONCE ONE Administration Discharge Plan Discharge Clinical Impression: Abdominal pain, Diarrhea Patient Disposition: Home, Self-Care Instructions: Abdominal Pain (ED) Additional Instructions: Your blood work was unchanged from your previous laboratory evaluation which is reassuring. The CAT scan of your belly did not reveal any significant abnormalities to explain your abdominal pain or your diarrhea. Most diarrhea is either caused by a viral infection or a bacterial infection. Most of the time these infections do not need to be treated with antibiotics or other medications and get better over time. Continue taking your medications as prescribed by your providers. Increase your fluid intake to stay hydrated. Take Tylenol 500 mg pills, 2 pills every 6 hours as needed for pain or fever. Follow-up with your doctor in 2 days. Please return to the emergency department if your symptoms get worse or if you develop any symptoms that are concerning to you. Prescriptions: No Action metoprolol succinate 25 mg tablet extended release 24 hr 25 mg PO BID cholecalciferol (vitamin D3) 50 mcg (2,000 unit) capsule 50 mcg PO DAILY 30 Days Qty: 30 7RF (DME) walker with seat and breaks See Rx Instructions .Route .MEDSUPPLY Qty: 1 0RF Rx Instructions: As directed (DME) raised toilet seat with arms See Rx Instructions .Route .MEDSUPPLY Qty: 1 0RF Rx Instructions: As directed ([facility] [place]) Shower chair with arms See Rx Instructions .Route .MEDSUPPLY Qty: 1 0RF Rx Instructions: As directed furosemide 20 mg tablet 20 mg PO DAILY (DME) Bedside commode See Rx Instructions .Route .MEDSUPPLY Qty: 1 0RF Rx Instructions: As directed (DME) pen needle, diabetic [BD Denisa 2nd Gen Pen Needle] 32 gauge x 5/32 needle See Rx Instructions .ROUTE .COMPLEX Qty: 200 7RF Dose Instruction: USE DIRECTED FOUR TIMES DAILY Rx Instructions: USE DIRECTED FOUR TIMES DAILY clopidogrel 75 mg tablet 75 mg PO DAILY Qty: 90 1RF nitrofurantoin macrocrystal 100 mg capsule 100 mg PO BID 10 Days Qty: 20 0RF Rx Instructions: must administer with a meal/food insulin degludec [Tresiba FlexTouch U-200] 200 unit/mL (3 mL) insulin pen 20 unit subcut DAILY Qty: 9 3RF cyanocobalamin (vitamin B-12) [Vitamin B-12] 1,000 mcg Tablet 1,000 mcg PO DAILY Qty: 90 3RF acetaminophen 325 mg Tablet 650 mg PO Q6H PRN (Reason: Pain) (DME) lancets 28 gauge misc See Rx Instructions topical QID Qty: 100 Rx Instructions: As directed ([facility] [place]) blood-glucose meter [FreeStyle Lite Meter] Kit See Rx Instructions .ROUTE .MEDSUPPLY Qty: 1 0RF Rx Instructions: As directed 4x/day ascorbate calcium (vitamin C) 500 mg tablet 500 mg PO DAILY 90 Days Qty: 90 1RF levothyroxine 88 mcg tablet 88 mcg PO DAILY@0600 Qty: 90 3RF (DME) FreeStyle Lite Strips Strip See Rx Instructions .ROUTE .MEDSUPPLY Qty: 100 11RF Rx Instructions: As directed three times a day insulin lispro [Admelog SoloStar U-100 Insulin] 100 unit/mL insulin pen See Rx Instructions subcut USEASDIRECTD Qty: 15 4RF Rx Instructions: tid with meals 100-150 0 units 151-200 6 units over 251-300 8 units subcutaneously use as directed; lansoprazole 30 mg capsule,delayed release(DR/EC) 30 mg PO DAILY Qty: 90 1RF atorvastatin 40 mg tablet 40 mg PO BEDTIME Qty: 90 0RF triamcinolone acetonide 0.1 % lotion 1 appl topical DAILY 30 Days Qty: 60 2RF Discharge Date/Time: 01/18/25 16:49 Print Language: Kyrgyz
[2025-01-18 10:48] LABS: MANUAL DIFF FLAG NO
[2025-01-18 10:50] LABS: Hematocrit 30.3 % (37.0-47.0); Hemoglobin 10.0 g/dl (12.0-16.0); Imm Gran Abs Auto 0.01 X10*3/uL (0.00-0.03); Imm Gran Pct Auto 0.2 % (0.0-0.4); Lymphocytes Absolute Auto 1.1 X10*3/uL (1.2-4.9); Mean Corpuscular HGB Conc 33.0 g/dl (31.0-35.0); Mean Corpuscular Hemoglobin 31.5 pg (27.0-33.0); Mean Corpuscular Volume 95.6 fL (80.0-98.0); NRBC Abs Auto 0.000 X10*3/uL (0.0-0.012); NRBC Pct Auto 0.0 /100WBC (0.0-0.2); Platelet Count 181 X10*3/uL (160-400); Red Blood Count 3.17 X10*6/uL (4.20-5.50); White Blood Count 4.5 X10*3/uL (4.8-10.8)
[2025-01-18 11:02] LABS: Appearance Urine Turbid; Glucose Urine UA 100 mg/dL (Negative); PH 6.0 (5.0-9.0); Specific Gravity - Urine 1.010 (1.005-1.025); UMIC TRIGGER UACC YES
[2025-01-18 11:03] LABS: Alanine Aminotransferase 36 U/L (0-31); Albumin Level 3.6 g/dL (3.5-5.0); Alkaline Phosphatase 310 U/L (39-117); Anion Gap 8 (12-20); Aspartate Amino Transferase 59 U/L (5-31); Blood Urea Nitrogen 26 mg/dL (9-16); Calcium 8.9 mg/dL (8.4-10.2); Carbon Dioxide 16 mmol/L (22-29); Chloride 116 mmol/L (96-108); Creatinine Clr Calc Pharmacy 19.0; Estimated Glomerular Filt Rate 25; Lipase < 4 U/L (8-78); Magnesium 2.1 mg/dL (1.6-2.6); Potassium 4.4 mmol/L (3.3-5.1); Sodium 136 mmol/L (135-145); Total Protein 7.9 g/dL (6.5-8.0)
[2025-01-18 11:37] VITALS: BP 142/64; PULSE 85; RESP 16; TEMP 36.6; O2SAT 98
[2025-01-18 11:50] LABS: UACC Culture Trigger YES
--- OUTSIDE RECORDS SUMMARY | 2025-01-19 03:18 | XMS_ITS | Clinical Summary ---
Author Organization [address] [facility] Address [address] [place] [address] Phone Care Team Providers Care Ski Maker Name Role Phone Kimi Patino MD Primary Care Provider [phone] Allergies Active Allergy Reactions Criticality Noted Date Comments Aspirin Hives,Other 2020 Ciprofloxacin Nausea And Vomiting 02/19/2022 Fish Containing Products 01/21/2022 Penicillins Hives,Other 2020 Sulfamethoxazole Nausea And Vomiting 05/04/2023 Trimethoprim Nausea And Vomiting 05/04/2023 Medications No known medications Active Problems No known active problems Medical History Medical History Date Comments Diabetes mellitus ([facility] V24, [facility] V28) Hypertension Stroke ([facility] V24, [facility] V28) CKD (chronic kidney disease) Arthritis Social [...] AM EST Office Visit Orthopedic Surgery - [place] [address] [address] Ravindra Gan, DPM [address] [address] Health Maintenance Due Date Last [...] LAB CHEMISTRY METHOD 08/13/2024 12:13 PM EDT [facility] BUN 47(H) 5 - 25 mg/dL LAB CHEMISTRY METHOD 08/13/2024 12:13 PM EDT [facility] Creatinine 1.86(H) 0.50 - 1.10 mg/dL LAB CHEMISTRY METHOD 08/13/2024 12:13 PM EDT [facility] eGFR 28(L) >=60 mL/min/1. 73m2 LAB CHEMISTRY METHOD 08/13/2024 12:13 PM EDT [facility] Comment:Calculation based on the Chronic Kidney Disease Epidemiology Collaboration (CKD-EPI) equation refit without adjustment for race. BUN/Creatinine Ratio 25.3 LAB CHEMISTRY METHOD 08/13/2024 12:13 PM EDT [facility] Calcium 8.8 8.5 - 10.5 mg/dL LAB CHEMISTRY METHOD 08/13/2024 12:13 PM EDT [facility] Blood Venous blood specimen / Unknown Venipuncture / Unknown 08/13/2024 10:57 AM EDT 08/13/2024 11:37 AM EDT us [facility] LAB BLOOD ORDERABLES Final Res ult [facility] [address] [place] [address], from Last 3 Months or Most Recently Relevant to Health Maintenance Insurance MEDICAID - [place] MEDICARE Care Teams Ski Maker Relationship Specialty Start Date End Date Kimi Patino MD [address] [place] [phone] PCP - General 06/06/15
== END 2025-01-18 16:49 | disposition home or self-care (01) ==
PROVIDERS: Physician Assistant Medical; Emergency Provider Emergency Medicine Emergency Medical Services; PCP Internal Medicine
DX: R10.32 Left lower quadrant pain (principal); R19.7 Diarrhea, unspecified; R82.71 Bacteriuria; E11.22 Type 2 diabetes mellitus with diabetic chronic kidney disease; I12.9 Hypertensive chronic kidney disease with stage 1 through stage 4 chronic kidney disease, or unspecified chronic kidney disease; N18.30 Chronic kidney disease, stage 3 unspecified; Z86.73 Personal history of transient ischemic attack (TIA), and cerebral infarction without residual deficits; Z88.0 Allergy status to penicillin; Z88.6 Allergy status to analgesic agent
CPT/HCPCS: 36415; 74176; 80048; 80076; 81001; 81003; 83690; 83735; 85025; 87086; 87088; 87186; 99284

== ENCOUNTER → 2025-01-18 12:04 | Outpatient (BNV) | payer MEDICARE, MEDICAID, SELFPAY | PROVIDERS: Emergency Provider Emergency Medicine Emergency Medical Services; PCP Internal Medicine; Visit Provider Radiology Diagnostic Radiology | DX: N13.30 Unspecified hydronephrosis (principal) | CPT/HCPCS: 74176 ==

== ENCOUNTER 2025-01-31 07:12 | Day surgery (SDC) | payer MEDICARE, MEDICAID, SELFPAY ==
--- NOTE | 2025-01-12 13:53 | HO.ANESPROP2 ---
Documented by User: Mojgan Figueredo NP 01/25/25 11:46 HPI - Anesthesia Eval Consult details Narrative: 74yo F for Insertion Suprapubic Tube, 01/31/25 Medically optimized to proceed per PCP. CKD stage 3 - Follows [id number]. Last office visit 08/2024. Since, creat up at 2.2, GFR down to 21. 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 (Acute) History of CVA (cerebrovascular accident) (Acute) Pre-op evaluation (Acute) Foul smelling urine (Acute) Neurogenic bladder (Acute) Hydronephrosis (Acute) Trigger finger, left index finger (Acute) GERD (gastroesophageal reflux disease) (Acute) Cloudy urine (Acute) Confusion (Acute) Abnormal SPEP (Acute) Personal history of malignant neoplasm of uterus (Acute) Subcutaneous mass (Acute) Localized swelling, mass and lump, right lower limb (Acute) Medicare annual wellness visit, subsequent (Acute) T2DM (type 2 diabetes mellitus) (Acute) Upper respiratory tract infection (Acute) Urinary retention with incomplete bladder emptying (Acute) Osteoporosis (Acute) NAVARRO (nonalcoholic steatohepatitis) (Acute) Bleeding hemorrhoids (Acute) Frequent bowel movements (Acute) Anal pain (Acute) Recurrent UTI (Acute) Feeling of incomplete bladder emptying (Acute) Blood bacterial culture positive (Acute) Acute UTI (Acute) [place] (iron deficiency anemia) (Chronic) Chronic hyperglycemia (Acute) Gram-negative bacteremia (Acute) Leg weakness, bilateral (Acute) Gait disturbance (Acute) Hospital discharge follow-up (Acute) UTI due to Klebsiella species (Acute) Bacteremia due to Klebsiella pneumoniae (Acute) Anemia (Acute) Low sodium levels (Acute) LFT elevation (Acute) Rash (Acute) Hospital discharge follow-up (Acute) Pruritic rash (Acute) Medicare annual wellness visit, initial (Acute) Breast screening (Acute) Elevated serum creatinine (Acute) Nephropathy (Acute) Transaminitis (Acute) Itching (Acute) Hypoglycemia (Acute) Hyperparathyroidism (Acute) Hypothyroidism (Acute) Serum calcium elevated (Acute) CVA (cerebral vascular accident) (Acute) CKD stage 3 due to type 2 diabetes mellitus (Acute) retirement (current) 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 (Acute) Hyperlipemia (Acute) Diabetic neuropathy (Acute) HTN (hypertension) (Acute) Bacteremia (Acute) Vitamin D deficiency (Acute) Diabetes type 2, uncontrolled (Acute) Yeast infection involving the vagina and surrounding area (Acute) Past Medical History Medical History CKD (chronic kidney disease) stage 3, GFR 30-59 ml/min Hyperchloremic metabolic acidosis Colonoscopy refused Abnormal SPEP Personal history of malignant neoplasm of uterus Subcutaneous mass T2DM (type 2 diabetes mellitus) Urinary retention with incomplete bladder emptying Osteoporosis Elevated liver enzymes Hypoglycemia Hyperparathyroidism Serum calcium elevated CKD stage 3 due to type 2 diabetes mellitus retirement (current) 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 Bacteremia Vitamin D deficiency Diabetes type 2, uncontrolled History of non anemic vitamin B12 deficiency Iron deficiency anemia Renal tubular acidosis History of uterine fibroid CVA (cerebral vascular accident) Hypothyroidism HTN (hypertension) Hyperlipemia Diabetic neuropathy Diabetes Yeast infection involving the vagina and surrounding area Family History Family History Maternal Grandmother No problems noted. Mother Pancreatic cancer Surgical History Surgical History Hx of cystoscopy (11/12/22) History of endoscopy History of colonoscopy History of cataract surgery H/O carotid endarterectomy History of hysterectomy History of Problems with Anesthesia: No Social History Social History Household Members: Children Housing: House Are you a primary patient care specialist to a significant other at home: No Do you presently have visiting nurse or other home services: No Alcohol intake: current Alcohol intake frequency: does not drink Patient Tobacco Use Status: Never used Tobacco e-Cigarette/Vaping Use: Never Used Second Hand Smoke Exposure: No Use of substances other than those prescribed or required for medical reasons: No Have you been hit, kicked, punched, or otherwise hurt by someone within the past year? If so, by whom?: No Are you DNR?: No Advance Directives: Yes Advance Directives Information Provided: No Advance Directives on File: Yes Advance Directives Date on File: 02/04/20 Patient : No : No service: No Current occupational status: unemployed Cognitive needs: No Hearing needs: No Vision needs: Yes Meds Allergies Allergy/AdvReac Type Severity Reaction Status Date / Time aspirin (ASPIRIN) Allergy Severe Swelling, Verified 01/18/25 10:26 rash fish derived (FISH) Allergy Mild Rash, Verified 01/18/25 10:26 Swelling Penicillins (PENICILLINS) Allergy Unknown Swelling Verified 01/18/25 10:26 Home Medications ?Medication ?Instructions ?Recorded ?Confirmed ?Last Taken ?Type metoprolol succinate 25 mg 25 mg PO BID 01/13/20 01/31/25 01/31/25 History tablet,extended release 24 hr lancets 28 gauge #100 ea 04/25/20 01/31/25 Unknown History furosemide 20 mg tablet 20 mg PO DAILY 07/20/20 01/31/25 08/02/24 History acetaminophen 325 mg tablet 650 mg PO Q6H PRN Pain 01/16/22 01/31/25 Unknown History Exam Pertinent Lab Results Pertinent Lab Results: Laboratory Tests 01/10/25 01/10/25 13:15 13:18 WBC 4.1 L Hgb 9.5 L Hct 29.2 L Plt Count 198 D Sodium 138 Potassium 4.1 Chloride 113 H Carbon Dioxide 14 L BUN 28 H Creatinine 2.27 H Laboratory Tests 12/10/24 01/10/25 11:15 13:15 Estimated GFR 21 Hgb A1c (Clinic) 7.0 H Narrative Narrative: EKG 08/2024 Vent. Rate : 85 BPM Atrial Rate : 85 BPM P-R Int : 152 ms QRS Dur : 68 ms QT Int : 352 ms P-R-T Axes : 24 15 22 degrees QTcB Int : 418 ms Normal sinus rhythm Normal ECG When compared with ECG of 16-Jan-2022 10:22, No significant change was found Assessment and Plan Final Anesthetic Review History of Problems with Anesthesia: No Documented by User: Yessenia Silva MD 01/31/25 08:18 [facility] Past Medical History Medical History CKD (chronic kidney disease) stage 3, GFR 30-59 ml/min Hyperchloremic metabolic acidosis Colonoscopy refused Abnormal SPEP Personal history of malignant neoplasm of uterus Subcutaneous mass T2DM (type 2 diabetes mellitus) Urinary retention with incomplete bladder emptying Osteoporosis Elevated liver enzymes Hypoglycemia Hyperparathyroidism Serum calcium elevated CKD stage 3 due to type 2 diabetes mellitus retirement (current) 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 Bacteremia Vitamin D deficiency Diabetes type 2, uncontrolled History of non anemic vitamin B12 deficiency Iron deficiency anemia Renal tubular acidosis History of uterine fibroid CVA (cerebral vascular accident) Hypothyroidism HTN (hypertension) Hyperlipemia Diabetic neuropathy Diabetes Yeast infection involving the vagina and surrounding area Family History Family History Maternal Grandmother No problems noted. Mother Pancreatic cancer Surgical History Surgical History Hx of cystoscopy (11/12/22) History of endoscopy History of colonoscopy History of cataract surgery H/O carotid endarterectomy History of hysterectomy Social History Social History Household Members: Children Housing: House Are you a primary patient care specialist to a significant other at home: No Do you presently have visiting nurse or other home services: No Alcohol intake: current Alcohol intake frequency: does not drink Patient Tobacco Use Status: Never used Tobacco e-Cigarette/Vaping Use: Never Used Second Hand Smoke Exposure: No Use of substances other than those prescribed or required for medical reasons: No Have you been hit, kicked, punched, or otherwise hurt by someone within the past year? If so, by whom?: No Are you DNR?: No Advance Directives: Yes Advance Directives Information Provided: No Advance Directives on File: Yes Advance Directives Date on File: 02/04/20 Patient : No : No service: No Current occupational status: unemployed Cognitive needs: No Hearing needs: No Vision needs: Yes Meds Allergies Allergy/AdvReac Type Severity Reaction Status Date / Time aspirin (ASPIRIN) Allergy Severe Swelling, Verified 01/18/25 10:26 rash fish derived (FISH) Allergy Mild Rash, Verified 01/18/25 10:26 Swelling Penicillins (PENICILLINS) Allergy Unknown Swelling Verified 01/18/25 10:26 Home Medications ?Medication ?Instructions ?Recorded ?Confirmed ?Last Taken ?Type metoprolol succinate 25 mg 25 mg PO BID 01/13/20 01/31/25 01/31/25 History tablet,extended release 24 hr lancets 28 gauge #100 ea 04/25/20 01/31/25 Unknown History furosemide 20 mg tablet 20 mg PO DAILY 07/20/20 01/31/25 08/02/24 History acetaminophen 325 mg tablet 650 mg PO Q6H PRN Pain 01/16/22 01/31/25 Unknown History Exam Airway Mallampati Class: II (edentulous) TM Dist: >3cm Neck ROM: Full Loose/Missing/Broken Teeth: Yes, Upper and Lower Heart: RRR Lungs: CTA Assessment and Plan Assessment Anesthesia Assessment: Anesthesia Plan Discussed and Chart Reviewed Final Anesthetic Review NPO: Yes ASA Class: III Final Preanesthetic Review: Meds/Allgs Chart Reviewed, Consent Obtained/Reviewed and Anes Risks/Benef Reviewed Patient Risk: Intermediate Procedure Risk: Low Anesthetic Plan Anesthetic Plan: GA Disposition: Standard PACU
[2025-01-13 14:57] VITALS: BMI 26.1
[2025-01-25 07:51] VITALS: BMI 26.1
[2025-01-31 07:51] VITALS: BP 137/63; PULSE 77; RESP 16; TEMP 36.1; O2SAT 97
[2025-01-31 07:51] LABS: Glucose, Whole Blood 124 mg/dL (60-115)
[2025-01-31] MEDS: Lactated Ringers 1,000 ML 100 ML IVCONT (07:55)
--- NOTE | 2025-01-31 08:15 | MHC.SHP ---
Pre-Procedural Eval Section A - 24 Hr Update-Section A only Date of Service: 01/31/25 The patient is an INPATIENT: No Changes since office visit: No Cold of Flu in the past 2 weeks, No New Medical Problems, No Changes in Medication and No Patient answered all questions Section B - Complete if H&P > 30 days Chief Complaint: Neuromuscular dysfunction of bladder, unspecified Details of Present Illness: Plan for cystoscopy, suprapubic tube placement Relevant Social History: None Present Medications: see Short Stay Collaborative assessment Medical History: Significant History History of Previous Operations: No relevant previous surgery Allergies: Allergies Allergy/AdvReac Type Severity Reaction Status Date / Time aspirin (ASPIRIN) Allergy Severe Swelling, Verified 01/18/25 10:26 rash fish derived (FISH) Allergy Mild Rash, Verified 01/18/25 10:26 Swelling Penicillins (PENICILLINS) Allergy Unknown Swelling Verified 01/18/25 10:26 Review of Systems Sugical H&P ROS: Negative: Constitution, Cardiovascular, Respiratory, Neurological, Psychiatric, Hem-Onc, Allergic/Immunologic, Gastrointestinal, Genitourinary, Musculoskeletal, Integumentary, Endocrine and Eyes/Ears/Nose/Throat Exam Surgical H&P Exam: Normal: HEENT, Normal: Heart, Normal: Lungs, Normal: Extremities, Normal: Abdomen, Normal: Skin and Normal: Neurological Plan Diagnosis/Plan: Unchanged (Neurogenic bladder in the setting of diabetes) I have reviewed the history and physical and performed a pertinent physical examination on my patient. No changes have occurred unless specified. Time Spent With Patient Time: Total time managing care of this patient today ____ minutes.
--- NOTE | 2025-01-31 08:58 | P.OP_ITS ---
Operative Note Operative Note Date of Service: 01/31/25 Narrative: PreOperative Diagnosis: Diabetic?neurogenic bladder Post Operative Diagnosis:? Diabetic neurogenic bladder Procedure:? 1. Cystoscopy 2. Suprapubic tube placement Surgeon: Dr Bobby Zapata Anesthesia:?Sedation plus local Indications for procedure: Diabetic neurogenic bladder with recurrent UTI and incomplete bladder emptying. Procedure: After informed consent was verified the patient was brought to the operating room and placed in a supine position.? Anesthesia was administered per protocol. The patient was placed in a modified dorsal lithotomy position and prepped and draped in a sterile fashion. A safety pause was performed confirming patient identity, procedure and antibiotics. A 22 Bulgarian cystoscope was inserted per urethra. Bladder was examined in its entirety. No abnormalities seen. Air bubble was located at the dome of the bladder. A finder needle was inserted 2 fingerbreaths above the symphysis pubis on the abdomen into the bladder.? The needle was visualized in the bladder via cystoscopy. Local anesthetic was infiltrated subcutaneously around the needle introduction site. A small, 1cm horizontal incision was made.? A trocar introducer was advanced through the abdominal wall into the bladder under visualization. The obturator was removed and a 16 Fr royal catheter placed. 7cc was used to inflate the balloon. The external portion of the trocar was removed. Dressing was placed, the bladder was emptied, and a drainage bag was attached. The patient tolerated the procedure and was transferred in stable condition to the recovery area. Suprapubic tube will be changed in 1 month with a follow-up office visit.
[2025-01-31 09:00] VITALS: BP 93/42; PULSE 70; RESP 18; TEMP 36.6; O2SAT 100
[2025-01-31 09:05] VITALS: BP 104/42; PULSE 68; RESP 16; O2SAT 100
[2025-01-31 09:10] VITALS: BP 105/38; PULSE 69; RESP 16; O2SAT 100
[2025-01-31 09:15] VITALS: BP 115/46; PULSE 70; RESP 16; O2SAT 100
[2025-01-31] MEDS: oxyCODONE HCl Immed Release 5 MG TABLET PO (09:26)
[2025-01-31 09:30] VITALS: BP 107/54; PULSE 74; RESP 16; TEMP 36.1; O2SAT 100
--- NOTE | 2025-01-31 10:26 | PC.NURSE ---
DR. NOLAN CAME OUT TO SPEAK WITH PATIENT'S DAUGHTER REGARDING CARE AT HOME. THIS RN SHOWED PATIENT'S DAUGHTER WHERE DRISCOLL CATHETER PLUG WAS TO GO WHEN DETACHED FROM CATHETER. GIVEN ALCOHOL SWABS, GLOVES AND URINAL TO EMPTY URINE.
== END 2025-01-31 10:25 | disposition home or self-care (01) ==
PROVIDERS: PCP Internal Medicine; Visit Provider Urology
PROC: (CPT 51102; principal; 2025-01-31 08:40)
DX: E11.49 Type 2 diabetes mellitus with other diabetic neurological complication (principal); N31.8 Other neuromuscular dysfunction of bladder; R39.14 Feeling of incomplete bladder emptying; N39.0 Urinary tract infection, site not specified; E11.22 Type 2 diabetes mellitus with diabetic chronic kidney disease; I12.9 Hypertensive chronic kidney disease with stage 1 through stage 4 chronic kidney disease, or unspecified chronic kidney disease; N18.30 Chronic kidney disease, stage 3 unspecified; N13.30 Unspecified hydronephrosis; R33.9 Retention of urine, unspecified; N13.70 Vesicoureteral-reflux, unspecified; I69.954 Hemiplegia and hemiparesis following unspecified cerebrovascular disease affecting left non-dominant side; E78.5 Hyperlipidemia, unspecified; D50.9 Iron deficiency anemia, unspecified; M81.0 Age-related osteoporosis without current pathological fracture; E55.9 Vitamin D deficiency, unspecified; E87.22 Chronic metabolic acidosis; Z79.4 Long term (current) 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; Z79.899 Other long term (current) drug therapy; Z99.89 Dependence on other enabling machines and devices; Z88.0 Allergy status to penicillin; Z88.6 Allergy status to analgesic agent; Z98.890 Other specified postprocedural states; Z56.0 Unemployment, unspecified
CPT/HCPCS: 51102; 82947; J2003; J2371; J2405; J2704; J2795; J3010

== ENCOUNTER → 2025-01-31 07:12 | Outpatient (BNV) | payer MEDICARE, MEDICAID, SELFPAY | PROVIDERS: PCP Internal Medicine; Visit Provider Urology | DX: N31.9 Neuromuscular dysfunction of bladder, unspecified (principal) | CPT/HCPCS: 51040 ==